=== PATIENT | male | born 1945 | race Caucasian/White ===

== ENCOUNTER 2016-08-23 07:16 | Inpatient (IN) | payer MEDICARE ==
[~2016-08-23] VITALS: Ht 165.1 cm; Wt 77.3 kg
[~2016-08-23 07:16] MED LIST: ASPIRIN81 MG PO; COZAAR50 MG PO; DIABETA5 MG PO; DITROPAN X10 MG/BOTT PO; FERROUS SULFAT325 MG PO; FLOMAX0.4 MG PO; FUROSEMIDE20 MG PO; FUROSEMIDE40 MG PO; HYDROCODONE-APA1 TAB PO; IPRAT-ALBUT 0.5-3 ML INH; ISOSORBIDE MONO30 M1 PO; LANTUS SOL100 UNIT/1 SQ; LEVAQUIN500 MG PO; LIPITOR10 MG PO; LIPITOR80 MG PO; LISINOPRIL10 MG PO; LOPRESSOR25 MG; METROLOTION59 ML TP; NIACIN250 M1 PO; NORVASC10 MG PO; OMEPRAZOLE20 M1 PO; OXYBUTYNIN CHLOR5 MG; PLAVIX75 MG PO; POTASSIUM; PREDNISONE20 MG PO; PRILOSEC20 MG PO; PROPECIA1 MG PO; PROSCAR5 MG PO; REFRESH TEARS15 ML EACH EYE; STOOL SOFTENER240 MG PO; TOPROL XL200 MG PO; TRAZODONE HCL50 MG PO; VITAMIN B-1100 M1 PO; VITAMIN B-121000 MCG PO; VITAMIN D2000 UNIT PO; ZESTRIL40 MG PO; ZOCOR40 MG PO; ZOLOFT50 MG PO
[2016-08-23 08:18] LABS: BASOPHILS 0.3 % (0.0-2.0); HEMATOCRIT 32.4 % (42.0-54.0); HEMOGLOBIN 11.1 g/dL (13.5-17.5); LYMPHOCYTES 13.6 % (15-50); MCH 31.4 pg (26.0-34.0); MCHC 34.3 g/dL (31.0-37.0); MCV 91.8 fL (80.0-100.0); MEAN PLATELET VOLUME 9.4 fL (7.4-10.4); MONOCYTES 9.9 % (2-11); NEUTROPHILS 72.2 % (40-80); PLATELET COUNT 127 10x3/uL (130-400); RBC 3.53 10x6/uL (4.20-6.10); RDW 13.4 % (11.5-14.5)
[2016-08-23 08:35] LABS: ALBUMIN 3.4 g/dL (3.4-5.0); ANION GAP 21.9 mmol/L (8-16); BILIRUBIN - TOTAL 0.41 mg/dL (0.2-1.3); CALCIUM 7.7 mg/dL (8.5-10.1); CARBON DIOXIDE 23.1 mmol/L (21.0-32.0); CREATININE - SERUM 6.7 mg/dL (0.6-1.3); PROTEIN - SERUM 6.8 g/dL (6.4-8.2)
[2016-08-23 09:04] LABS: APTT 26.7 SECONDS (22.8-39.4); INR 1.01 (0.85-1.17); PROTIME 13.2 SECONDS (11.6-15.0)
--- NOTE | 2016-08-23 14:00 | NUR ---
RECEIVED PAITIENT TO ROOM 2136 VIA WHEELCHAIR FROM ED AT THIS TIME. ALERT/ORIENTED BUT DOES REPEAT HIMSELF. 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 22 GAUGE IV TO RIGHT HAND. RIGHT CHEST HEMESPLIT. ABLE TO TRANSFER SELF WITH STAND BY ASSIST. CALL LIGHT PLACED WIHTIN REACH. DENIES NEEDS. NO DISTRESS.
[2016-08-23] MEDS ORDERED: NORVASC10 MG PO (14:31)
[2016-08-23] MEDS ORDERED: VITAMIN D2000 UNIT PO (14:34)
[2016-08-23] MEDS ORDERED: VITAMIN B-121000 MCG PO (14:34)
[2016-08-23] MEDS ORDERED: LASIX40 MG PO (14:37)
[2016-08-23] MEDS ORDERED: ZESTRIL40 MG PO (14:38)
[2016-08-23] MEDS ORDERED: OMEPRAZOLE20 M1 PO (14:40)
[2016-08-23] MEDS ORDERED: VITAMIN B-1100 M1 PO (14:43)
[2016-08-23] MEDS ORDERED: DITROPAN X10 MG/BOTT PO (14:43)
--- NOTE | 2016-08-23 15:25 | NUR ---
Patient Name: MARC CHADWICK Admission Status: ER Accout number: [id number] Admission Date: 08-23-2016 : 1945 Admission Diagnosis: LUE Paresis, Hyperglycemia. Attending: VITO Current LOS: 1 Anticipated DC Date: 08-26-2016 Planned Disposition: Home Primary Insurance: MEDICARE A & B Discharge Planning Comments: Cm met with patient to complete initial discharge planning assessment. Patient gave consent to complete assessment. Patient reports he lives home alone. He goes to dialysis every -- @ [facility]. He is not able to drive and went from taking a taxi back and forth to now using the bus. He reports he had a CVA last summer and now he is not able to read so they took his driving license from him at that time. His goal for dc today is to return home alone. Patient may benefit from Home Health at discharge. CM will continue to follow and assist with dc plan/needs. Clean Room Technician: Codie Langford RN, [facility] [phone] Is the patient Alert and Oriented? Yes * PCP Dr. Marie @ [facility]. (patient requested to stay at [facility] for treatment) * Pharmacy [facility] * Preadmission Environment Home Alone * ADLs Independent * Equipment Cane Glucometer Rolling Walker * List name and contact numbers for known caregivers / representatives who currently or will assist patient after discharge: Shaun Garcia - friend- Ever Chadwick - brother - [phone] * Community resources currently utilized Private Duty Care * Please name any agencies selected above. Private duty cg on Thursday/. Helps with housework and whatever he needs. [facility] provides all diabetes supplies. * Additional services required to return to the preadmission environment? Yes * Can the patient safely return to the preadmission environment? No * Has this patient been hospitalized within the prior 30 days at any hospital? No
[2016-08-23 15:31] VITALS: BP 146/63; BMI 28.4
[2016-08-23 16:19] VITALS: BP 158/72
--- NOTE | 2016-08-23 16:40 | NUR ---
FSBS 129. NO INSULIN COVERAGE REQUIRED PER [employer]ING [employer].
--- NOTE | 2016-08-23 18:39 | NUR ---
CM was notified that patient is a [facility] client and does not [facility] to [facility] to the [facility]. CM notified Chas with the [facility] of same, provided required information, physician, unit phone/fax number. Received Consent for Transfer, patient signed and CM faxed back to #[phone]. Original on chart. Kajal Heredia RN, CM
--- NOTE | 2016-08-23 19:03 | NUR ---
SITTING UP IN BED, AAOX3, SKIN WARM AND DRY, RESP UNLABORED, IV PATENT TO RIGHT HAND, NOTICEABLE WEAKNESS TO LEFT HAND, DENIES NEEDS AT THIS TIME
[2016-08-23 20:59] VITALS: BP 110/86
--- NOTE | 2016-08-23 23:26 | NUR ---
JACKSPOOLER AT BEDSIDE FOR VS. NEEDS ADDRESSED, CALL LIGHT IN REACH. WILL CONT TO MONITOR.
[2016-08-24 00:12] VITALS: BP 110/80
[2016-08-24 04:00] VITALS: BP 109/79
[2016-08-24 06:06] LABS: BASOPHILS 0.2 % (0.0-2.0); EOSINOPHILS 4.4 % (0-7); HEMOGLOBIN 11.7 g/dL (13.5-17.5); IMMATURE GRANULOCYTES 0.2 % (0-5); LYMPHOCYTES 19.5 % (15-50); MCH 30.5 pg (26.0-34.0); MCHC 33.4 g/dL (31.0-37.0); MCV 91.1 fL (80.0-100.0); MEAN PLATELET VOLUME 9.8 fL (7.4-10.4); MONOCYTES 7.6 % (2-11); NEUTROPHILS 68.1 % (40-80); PLATELET COUNT 151 10x3/uL (130-400); RBC 3.84 10x6/uL (4.20-6.10); RDW 13.1 % (11.5-14.5); WBC 6.3 10x3/uL (4.8-10.8)
[2016-08-24 06:28] LABS: ANION GAP 21.5 mmol/L (8-16); CALCIUM 7.8 mg/dL (8.5-10.1); CARBON DIOXIDE 23.3 mmol/L (21.0-32.0); CREATININE - SERUM 8.2 mg/dL (0.6-1.3); POTASSIUM - SERUM 3.8 mmol/L (3.5-5.1)
--- NOTE | 2016-08-24 07:54 | NUR ---
PT AOX4 HARD OF HEARING RESP EVEN AND NONLABORED PT DENIES NEEDS AT THIS TIME IV TO RIGHT HAND PATENT AND INTACT BED AT LOWEST SETTING AND CALL LIGHT WITHIN REACH WILL CONTINUE TO MONITOR
[2016-08-24 08:40] VITALS: BP 151/85
[2016-08-24 13:55] VITALS: BP 175/88
[2016-08-24 15:58] VITALS: BP 156/80
--- NOTE | 2016-08-24 19:49 | NUR ---
AMBULATORY IN HALLWAY. SR PER TELEMETRY. NONLABORED RESPIRATIONS ON ROOM AIR. PIV'S X 2, RIGHT HAND AND LFA. RIGHT CHEST WALL HEMOSPLIT. SEE COMPLETED SHIFT ASSESSMENT. CPOC.
[2016-08-24 20:15] VITALS: BP 176/85
[2016-08-25 02:31] VITALS: BP 145/65
[2016-08-25 04:38] LABS: BASOPHILS 0.4 % (0.0-2.0); EOSINOPHILS 4.1 % (0-7); HEMATOCRIT 31.9 % (42.0-54.0); HEMOGLOBIN 10.6 g/dL (13.5-17.5); IMMATURE GRANULOCYTES 0.2 % (0-5); LYMPHOCYTES 16.4 % (15-50); MCH 30.5 pg (26.0-34.0); MCHC 33.2 g/dL (31.0-37.0); MCV 91.9 fL (80.0-100.0); MEAN PLATELET VOLUME 9.6 fL (7.4-10.4); NEUTROPHILS 70.9 % (40-80); PLATELET COUNT 146 10x3/uL (130-400); RBC 3.47 10x6/uL (4.20-6.10); RDW 13.3 % (11.5-14.5); WBC 4.9 10x3/uL (4.8-10.8)
[2016-08-25 04:45] VITALS: BP 181/105
[2016-08-25 05:02] LABS: CALCIUM 7.2 mg/dL (8.5-10.1); CARBON DIOXIDE 23.1 mmol/L (21.0-32.0); CREATININE - SERUM 8.8 mg/dL (0.6-1.3); POTASSIUM - SERUM 4.1 mmol/L (3.5-5.1)
[2016-08-25 07:58] VITALS: BP 158/69
--- NOTE | 2016-08-25 13:03 | NUR ---
RETURN TO ROOM FROM DIALYSIS. PATIENT ASKED TO BE YOUTHANIZED. INFORM THAT PROCEDURE NOT DONE IN [place]. PATIENT REQUEST, "TELL THE DOCTOR TO JUST LET ME ." NOTIFY LE, RENAL DESOLDERER. CONSULT FOR INCREASED DEPRESSION. ZOLOFT 25mg INCREASE TO 50mg DAILY PER ORDER. CONTINUE PLAN OF CARE. BED LOCKED AND LOW. PATIENT DENIES BEING SUICIDAL. CALL LIGHT IN REACH. TWO SIDERAILS UP.
[2016-08-25 14:51] VITALS: Ht 165.1 cm; Wt 77.3 kg
[2016-08-25 16:40] VITALS: BP 153/78
--- NOTE | 2016-08-25 17:31 | NUR ---
ALERT AND ORIENTED X4. RESTING IN BED. PATIENT STATES, "THANK YOU FOR THAT XANAX, IT REALLY DID HELP I THINK." PAGE LE FOR SLEEP AIDE MEDICINE. DENIES FEELING SUICIDAL. CONTINUE PLAN OF CARE. ENCOURAGE TO CALL FOR HELP WHEN OOB DUE TO NEW MEDICATION. SINUS LAURI 56bpm ON TELEMETRY. CONTINUE PLAN OF CARE AND SAFETY PRECAUTIONS.
[2016-08-25 21:02] VITALS: BP 122/57
[2016-08-26 00:14] VITALS: BP 129/63
--- NOTE | 2016-08-26 04:17 | NUR ---
PT AWAKE, ALERT, ORIENTED, WALKING AROUND THE UNIT PERIODICALLY. DENIES ANY ACUTE NEEDS. PT STATED EARLIER IN THIS SHIFT THAT HE NO LONGER WANTS TO DO DIALYSIS, HE CANNOT TOLERATE SITTING THERE FOR HOURS. PT STATES THE PRN XANAX DOES NOT HELP AT ALL. CONTINUE TO MONITOR CLOSELY.
[2016-08-26 05:11] VITALS: BP 143/72
[2016-08-26 05:14] LABS: BASOPHILS 0.3 % (0.0-2.0); EOSINOPHILS 4.1 % (0-7); HEMATOCRIT 31.5 % (42.0-54.0); HEMOGLOBIN 10.6 g/dL (13.5-17.5); IMMATURE GRANULOCYTES 0.2 % (0-5); LYMPHOCYTES 20.9 % (15-50); MCH 30.9 pg (26.0-34.0); MCHC 33.7 g/dL (31.0-37.0); MCV 91.8 fL (80.0-100.0); MEAN PLATELET VOLUME 9.8 fL (7.4-10.4); MONOCYTES 10.5 % (2-11); PLATELET COUNT 133 10x3/uL (130-400); RBC 3.43 10x6/uL (4.20-6.10); RDW 12.9 % (11.5-14.5)
[2016-08-26 05:29] LABS: WBC 6.4 10x3/uL (4.8-10.8)
[2016-08-26 05:50] LABS: ANION GAP 20.5 mmol/L (8-16); CALCIUM 7.6 mg/dL (8.5-10.1); CARBON DIOXIDE 23.3 mmol/L (21.0-32.0); CREATININE - SERUM 7.2 mg/dL (0.6-1.3); POTASSIUM - SERUM 3.8 mmol/L (3.5-5.1)
--- NOTE | 2016-08-26 07:30 | NUR ---
PT IS RESTING IN BED WITH EYES CLOSED. AWOKE TO VERBAL STIMULI. ALERT AND ORIENTED X 3. DENIES ANY DISCOMFORT AT THIS TIME. PT IS SOMEWHAT NULATO. RIGHT CHEST KP-SPLIT CATH. NOTED. LEFT ARM IS RESERVED. SR'S ARE UP X 2 IN BED. CALL LIGHT AND BEDSIDE TABLE ARE WITHIN EASY REACH.
[2016-08-26 07:56] VITALS: BP 122/53
--- NOTE | 2016-08-26 09:59 | NUR ---
RESTS WITH EYES CLOSED. CALL LIGHT IN REACH. WILL CONT. PLAN OF CARE.
--- NOTE | 2016-08-26 10:00 | NUR ---
PT IS RESTING IN BED WITH EYES OPEN. NO NEEDS VOICED.
[2016-08-26 12:03] VITALS: BP 116/63
--- NOTE | 2016-08-26 13:15 | NUR ---
PT IS RESTING IN BED WITH EYES CLOSED.
[2016-08-26] MEDS ORDERED: ELIQUIS5 MG PO (14:31)
[2016-08-26] MEDS ORDERED: PLAVIX75 MG PO (14:31)
[2016-08-26] MEDS ORDERED: ZOLOFT50 MG PO (14:32)
--- NOTE | 2016-08-26 15:24 | NUR ---
Patient Name: MARC CHADWICK Encounter No: [id number] : 1945 Primary Insurance: MEDICARE A & B Anticipated DC Date: 08-26-2016 Planned Disposition: Home DCP follow-up note: CM MET WITH PT IN ROOM TO DISCUSS DISCHARGE NEEDS AND PLANNING. CM DISCUSSED AVAILABILITY OF HOME HEALTH, REHAB SERVICES AND MEDICAL EQUIPMENT. PT DENIES DISCHARGE NEEDS AND STATES HE HAS MEDICAID CAREGIVERS NOW AND TAKES THE [employer] TRANSIT BUS TO AND FROM DIALYSIS. PT REPORTS HE WILL CALL A TAXI FOR HIMSELF TO TRANSPORT HOME AT DISCHARGE TODAY. IMPORTANT MESSAGE FROM MEDICARE PROVIDED AND EXPLAINED. PT ASKED TO SPEAK TO CM CM LEFT THE ROOM. PT REPORTS HE IS THINKING OF STOPPING DIALYSIS AND ASKED WHAT WOULD HAPPEN IF HE DID. CM EXPLAINED THAT PT WOULD . PT ASKED HOW LONG WOULD HE HAVE. CM EXPLAINED THERE WAS NO WAY TO KNOW AND HE NEEDED TO DISCUSS THIS WITH HIS DIALYSIS DOCTOR AT THE DIALYSIS CLINIC. PT REPORTS HE HAS MADE ARRANGEMENTS FOR THE CARE OF HIS DOGS AND IS THINKING OF STOPPING DIALYSIS BECAUSE HE IS NOT GETTING ANY BETTER AND DOES NOT WANT TO SUFFER ANY LONGER. PT WILL DISCUSS THIS WITH HIS DIALYSIS DOCTOR TOMORROW. CM PROVIDED PT WITH HOSPICE AGENCY INFORMATION SERVING [facility] AND ADVISED PT TO CALL ONE OR ALL OF THEM AND DISCUSS WHAT HOSPICE CAN DO FOR HIM. PT THANKED RHIANNON FOR THE HELP AND WILL CONSIDER HOSPICE AND TALK TO HIS DOCTOR AT THE DIALYSIS CLINIC TOMORROW. RHIANNON NOTIFIED DR. LOPEZ. Elie Broderick, CASE MANAGEMENT
--- NOTE | 2016-08-26 16:13 | NUR ---
PT DISCHARGED TO HOME AT THIS TIME. DEPARTED UNIT VIA WC PROPELLED BY STAFF WITH ALL BELONGINGS. DEPARTED GROUNDS VIA YELLOW CAB.
--- NOTE | 2016-08-27 17:40 | CN ---
PATIENT NAME:MARC CHADWICK MEDICAL RECORD: [id number] : [birth year] LOCATION:D. D.2136 ADMIT DATE: 08/23/16 ACCOUNT: [id number] CONSULTING PHYSICIAN: ALFRED KAUR MD REFERRING PHYSICIAN: FÁTIMA LEMUS MD DATE OF CONSULTATION: 08/26/2016 Psychiatric Consultation IDENTIFYING DATA: The patient is 71 years old, he is admitted to the hospital on a voluntary basis. CHIEF COMPLAINT: Depression. HISTORY OF PRESENT ILLNESS: The patient is a very nice and cooperative man who unfortunately has a very bad set of circumstances. His overall health has deteriorated dramatically in the past few years. He has a long history of diabetes and hypertension and now he has end-stage renal disease along with 2 strokes, one very recently. He has no real support system. He has been 4 times and 4 times. He has a woman that he lived with for 22 years that he never . He has no children. No close family. He has a few friends. He endorses numerous neurovegetative depressive symptoms. He says he cannot tolerate dialysis that he feels terrible after it is done and he becomes very nervous and anxious when he is attached to the dialysis machine. He says that he thinks he does not want to have any more dialysis and he understands what this means. He is not able to drive anymore. He is living on a very modest income. He is $600 overdrawn at the bank and says he has a $200,000 hospital bill sitting on his refrigerator with a magnet. When asked about suicide, he says that he is not a yazidism person, although he used to be devout Nondenominational, but he still believes that killing himself would be very grave and mortal sin. He also very astutely says that killing himself would cause pain to the few friends and distant family members that he has who would have a lot of guilt about not trying to intervene. He tells me pretty convincingly that he is not going to kill himself. He also says that if something happened to him randomly that he would be perfectly fine with that. He says he does not want to take antidepressant medications, although he already is and has been. MENTAL STATUS EXAMINATION: The patient is awake, alert and oriented to person, place, time and situation. His mood is depressed. His affect is appropriate. Thought processes are goal directed. Memory, concentration and abstraction abilities are intact. He denies intent to harm himself or others as well as psychotic symptoms. ASSETS: An ability to make his needs known. LIABILITIES: Limited insight and resources. DIAGNOSTIC IMPRESSION: Major depression, severe, single episode. PLAN: At this time, I do not think the patient is an acute risk to himself or others that is to say I do think he is going to openly attempt to kill himself. He is considering hospice placement and just simply not going back for any more dialysis. Given his circumstances that may or may not be the best choice, but he does not have any evidence that would say he is not competent to make that choice. I would recommend older adult social work specialist follow up with him along with a CONSULT REPORT [id number] MARC CHADWICK S hospice consult. He does not want any kind of outpatient psychiatric care. It would be appropriate to continue the Zoloft that he is taking. Perhaps, he could tolerate dialysis better if he was given a benzodiazepine prior to dialysis. On the whole, I think his prognosis is guarded and hopefully he will improve with antidepressant medication. TRANSINT:[id number] Voice Confirmation ID: [id number] DOCUMENT ID: [id number] ALFRED KAUR MD at 1740 CC: [id number] DICTATION DATE: 08/26/162130 VALVE GRINDER: 08/27/16 0046 DIS IN 08/26/16 [facility] [address] [place] [address]
--- NOTE | 2016-08-29 14:54 | EC ---
PATIENT:MARC CHADWICK DATE OF SERVICE: 08/23/16 SEX: M MEDICAL RECORD: [id number] DATE OF : [birth year] LOCATION:D. D.213 AGE OF PATIENT: 71 ADMISSION DATE: 08/23/16 REFERRING PHYSICIAN: INTERPRETING PHYSICIAN: GENE BOYCE M.D. ECHOCARDIOGRAM REPORT ECHO CHARGES 4 ECHO COMPLETE CLINICAL DIAGNOSIS: CVA HX CAD/STENTS/PACER ECHOCARDIOGRAPHIC MEASUREMENTS (adult normal given) AC root (d.<3.7cm) 3.4 LV Septum d (<1.2 cm> 1.4 Valve Excursion 2.1 LV Septum (systole) 2.2 Left Atria (s.<4.0cm> 3.4 LVPW d(<1.2cm) 1.6 RV (d.<2.3cm) 3.7 LVPW (sytole) 2.0 LV diastole(<5.6CM) 5.8 MV E-F(>70mm/sec) LV systole 4.4 LVOT Diameter 1.7 MV exc.(>10mm) 0.9 Est.ejection fraction (50-75%) Pericardial Effusion N DOPPLER: LVIT A 107 E 60.0 LA RVSP 18 LVOT 87 AOP1/2T Asc. Ao 151 RVOT 91 RA PA 105 AV Gradient Peak 9.10 AV Mean 5.0 AV Area 1.5 MV Gradient Peak 6.63 MV Mean 1.8 MV Area COMMENTS: Senior Technical Business Analyst: Azar SAM Archivist Political History:2 Dr. Boyce TAPE# PACS DATE OF SERVICE: 08/24/2016 Echocardiogram Report REFERRING PHYSICIAN: Colten Moctezuma MD. INDICATION: CVA. DESCRIPTION: Left ventricle is mildly dilated. There is mild LV dysfunction noted. His ejection fraction is in the order of 45% to 50%. Mitral valve is ECHOCARDIOGRAM REPORT [id number] MARC CHADWICK structurally normal. There is mild regurgitation seen. Left atrium is normal in size. The aortic valve is trileaflet. There is no stenosis or regurgitation seen. Right ventricle is mildly dilated. Tricuspid valve is structurally normal. There is trivial regurgitation noted. Right atrium is normal size. There is no pericardial effusion seen. IMPRESSION: 1. Mild left ventricular dysfunction with ejection fraction of 45% to 50%. 2. No evidence of any mass or thrombus in the left ventricle apex. 3. Mild mitral regurgitation. 4. Trivial tricuspid regurgitation. 5. No evidence of atrial septal defect, ventricular septal defect or patent foramen ovale. TRANSINT:[id number] Voice Confirmation ID: [id number] DOCUMENT ID: [id number] GENE BOYCE M.D. at 1454 CC: [id number] DICTATION DATE: 08/24/16 1345 LEARNING DESIGN SPECIALIST: 08/25/16 0019 DIS IN 08/26/16 [id number] [place] [address]
== END 2016-08-26 16:14 | disposition home or self-care (01) | DRG 64 ==
LOC: D.ER 07:16 → D.M2 12:25
PROVIDERS: Emergency Medicine; ADMIT Internal Medicine Nephrology
PROC: 5A1D60Z (ICD-10-PCS; principal; 2016-08-25)
DX: I63.511 Cerebral infarction due to unspecified occlusion or stenosis of right middle cerebral artery (principal); N18.6 End stage renal disease; I12.0 Hypertensive chronic kidney disease with stage 5 chronic kidney disease or end stage renal disease; E11.22 Type 2 diabetes mellitus with diabetic chronic kidney disease; Z99.2 Dependence on renal dialysis; Z79.4 Long term (current) use of insulin; I65.21 Occlusion and stenosis of right carotid artery; I25.10 Atherosclerotic heart disease of native coronary artery without angina pectoris; E87.6 Hypokalemia; D63.1 Anemia in chronic kidney disease; R40.2133 Coma scale, eyes open, to sound, at hospital admission; R40.2363 Coma scale, best motor response, obeys commands, at hospital admission; R40.2253 Coma scale, best verbal response, oriented, at hospital admission; I25.2 Old myocardial infarction; Z95.1 Presence of aortocoronary bypass graft; Z95.5 Presence of coronary angioplasty implant and graft; Z86.73 Personal history of transient ischemic attack (TIA), and cerebral infarction without residual deficits

== ENCOUNTER 2016-09-20 19:49 | Inpatient (IN) | payer MEDICARE ==
[~2016-09-20 19:49] MED LIST changes: +ELIQUIS5 MG PO; +LASIX40 MG PO
[2016-09-20 20:21] LABS: BASOPHILS 0.2 % (0-2); EOSINOPHILS 3.1 % (0-7); HEMATOCRIT 30.7 % (42.0-54.0); HEMOGLOBIN 10.3 g/dL (13.5-17.5); IMMATURE GRANULOCYTES 0.3 % (0-5); LYMPHOCYTES 14.9 % (15-50); MCH 31.4 pg (26.0-34.0); MCHC 33.6 g/dL (31.0-37.0); MCV 93.6 fL (80.0-100.0); MONOCYTES 10.2 % (2-11); NEUTROPHILS 71.3 % (40-80); PLATELET COUNT 159 10x3/uL (130-400); RBC 3.28 10x6/uL (4.20-6.10); RDW 14.2 % (11.5-14.5); WBC 5.8 10x3/uL (4.8-10.8)
[2016-09-20 20:34] LABS: ALBUMIN 3.1 g/dL (3.4-5.0); ANION GAP 17.4 mmol/L (8-16); BILIRUBIN - TOTAL 0.41 mg/dL (0.2-1.3); CALCIUM 8.7 mg/dL (8.5-10.1); CARBON DIOXIDE 27.4 mmol/L (21.0-32.0); CREATININE - SERUM 6.7 mg/dL (0.6-1.3); POTASSIUM - SERUM 3.8 mmol/L (3.5-5.1); PROTEIN - SERUM 6.6 g/dL (6.4-8.2)
[2016-09-20 21:13] LABS: TROPONIN-I 7.406 ng/mL (0.000-0.060)
[2016-09-21] MEDS ORDERED: BAYER CHEWABLE81 MG PO (02:03)
[2016-09-22 04:59] LABS: BASOPHILS 0.2 % (0-2); EOSINOPHILS 3.6 % (0-7); HEMATOCRIT 28.7 % (42.0-54.0); HEMOGLOBIN 9.7 g/dL (13.5-17.5); IMMATURE GRANULOCYTES 0.3 % (0-5); LYMPHOCYTES 14.3 % (15-50); MCH 31.3 pg (26.0-34.0); MCHC 33.8 g/dL (31.0-37.0); MCV 92.6 fL (80.0-100.0); MEAN PLATELET VOLUME 9.2 fL (7.4-10.4); MONOCYTES 8.1 % (2-11); NEUTROPHILS 73.5 % (40-80); PLATELET COUNT 168 10x3/uL (130-400); RDW 14.1 % (11.5-14.5); WBC 6.2 10x3/uL (4.8-10.8)
[2016-09-22 05:13] LABS: ANION GAP 17.9 mmol/L (8-16); CALCIUM 8.6 mg/dL (8.5-10.1); CARBON DIOXIDE 23.8 mmol/L (21.0-32.0); CREATININE - SERUM 7.9 mg/dL (0.6-1.3); MAGNESIUM - SERUM 2.2 mg/dL (1.8-2.4); PHOSPHOROUS 7.5 mg/dL (2.5-4.9); POTASSIUM - SERUM 3.7 mmol/L (3.5-5.1)
[2016-09-23 05:32] LABS: BASOPHILS 0 % (0-2); EOSINOPHILS 4.7 % (0-7); HEMATOCRIT 29.1 % (42.0-54.0); HEMOGLOBIN 9.6 g/dL (13.5-17.5); IMMATURE GRANULOCYTES 0.4 % (0-5); LYMPHOCYTES 15.4 % (15-50); MCH 30.8 pg (26.0-34.0); MCV 93.3 fL (80.0-100.0); MEAN PLATELET VOLUME 9.5 fL (7.4-10.4); MONOCYTES 7.1 % (2-11); NEUTROPHILS 72.4 % (40-80); PLATELET COUNT 178 10x3/uL (130-400); RBC 3.12 10x6/uL (4.20-6.10); RDW 14.2 % (11.5-14.5); WBC 5.1 10x3/uL (4.8-10.8)
[2016-09-23 06:11] LABS: ANION GAP 16.8 mmol/L (8-16); CALCIUM 8.5 mg/dL (8.5-10.1); CARBON DIOXIDE 22.9 mmol/L (21.0-32.0); CREATININE - SERUM 8.1 mg/dL (0.6-1.3); POTASSIUM - SERUM 3.7 mmol/L (3.5-5.1)
[2016-09-24 06:11] LABS: BASOPHILS 0.2 % (0-2); EOSINOPHILS 3.2 % (0-7); HEMATOCRIT 27.5 % (42.0-54.0); IMMATURE GRANULOCYTES 0.2 % (0-5); LYMPHOCYTES 12.1 % (15-50); MCH 30.7 pg (26.0-34.0); MCHC 32.7 g/dL (31.0-37.0); MCV 93.9 fL (80.0-100.0); MEAN PLATELET VOLUME 9.4 fL (7.4-10.4); MONOCYTES 10.8 % (2-11); NEUTROPHILS 73.5 % (40-80); RBC 2.93 10x6/uL (4.20-6.10); RDW 14.3 % (11.5-14.5); WBC 5.6 10x3/uL (4.8-10.8)
[2016-09-24 06:12] LABS: PLATELET COUNT 111 10x3/uL (130-400)
[2016-09-24 06:29] LABS: ANION GAP 15.8 mmol/L (8-16); CALCIUM 8.3 mg/dL (8.5-10.1); CARBON DIOXIDE 25.9 mmol/L (21.0-32.0); CREATININE - SERUM 7.1 mg/dL (0.6-1.3); POTASSIUM - SERUM 3.7 mmol/L (3.5-5.1)
[2016-09-25 06:57] LABS: BASOPHILS 0.2 % (0-2); EOSINOPHILS 3.8 % (0-7); HEMATOCRIT 26.7 % (42.0-54.0); HEMOGLOBIN 8.6 g/dL (13.5-17.5); IMMATURE GRANULOCYTES 0.4 % (0-5); LYMPHOCYTES 22.5 % (15-50); MCH 30.1 pg (26.0-34.0); MCHC 32.2 g/dL (31.0-37.0); MCV 93.4 fL (80.0-100.0); MEAN PLATELET VOLUME 9.6 fL (7.4-10.4); MONOCYTES 11.8 % (2-11); NEUTROPHILS 61.3 % (40-80); PLATELET COUNT 105 10x3/uL (130-400); RBC 2.86 10x6/uL (4.20-6.10); WBC 5.3 10x3/uL (4.8-10.8)
[2016-09-25 06:59] LABS: ANION GAP 13.8 mmol/L (8-16); CALCIUM 8.6 mg/dL (8.5-10.1); CARBON DIOXIDE 28.1 mmol/L (21.0-32.0); CREATININE - SERUM 6.9 mg/dL (0.6-1.3); POTASSIUM - SERUM 3.9 mmol/L (3.5-5.1)
[2016-09-26 05:55] LABS: BASOPHILS 0.2 % (0-2); EOSINOPHILS 4.2 % (0-7); HEMATOCRIT 27.9 % (42.0-54.0); HEMOGLOBIN 9.2 g/dL (13.5-17.5); IMMATURE GRANULOCYTES 0.2 % (0-5); LYMPHOCYTES 19.5 % (15-50); MCH 31.3 pg (26.0-34.0); MCV 94.9 fL (80.0-100.0); MEAN PLATELET VOLUME 9.5 fL (7.4-10.4); MONOCYTES 8.5 % (2-11); NEUTROPHILS 67.4 % (40-80); PLATELET COUNT 122 10x3/uL (130-400); RBC 2.94 10x6/uL (4.20-6.10); WBC 5.5 10x3/uL (4.8-10.8)
[2016-09-26 06:45] LABS: ANION GAP 14.5 mmol/L (8-16); CALCIUM 8.9 mg/dL (8.5-10.1); CARBON DIOXIDE 31.5 mmol/L (21.0-32.0)
[2016-09-26 06:46] LABS: CREATININE - SERUM 9.1 mg/dL (0.6-1.3)
== END 2016-09-26 15:56 | DRG 246 ==
LOC: D.ER 19:49 → D.M2 23:21
PROVIDERS: Family Medicine; Internal Medicine Nephrology; ADMIT Internal Medicine Nephrology
PROC: 027034Z Dilation of Coronary Artery, One Artery with Drug-eluting Intraluminal Device, Percutaneous Approach (ICD-10-PCS; principal; 2016-09-22)
PROC: 4A023N7 Measurement of Cardiac Sampling and Pressure, Left Heart, Percutaneous Approach (ICD-10-PCS; 2016-09-22)
PROC: B2111ZZ Fluoroscopy of Multiple Coronary Arteries using Low Osmolar Contrast (ICD-10-PCS; 2016-09-22)
PROC: B2151ZZ Fluoroscopy of Left Heart using Low Osmolar Contrast (ICD-10-PCS; 2016-09-22)
PROC: 5A1D60Z (ICD-10-PCS; 2016-09-22)
DX: I25.119 Atherosclerotic heart disease of native coronary artery with unspecified angina pectoris (principal); N18.6 End stage renal disease; T82.855A Stenosis of coronary artery stent, initial encounter; I12.0 Hypertensive chronic kidney disease with stage 5 chronic kidney disease or end stage renal disease; Y83.8 Other surgical procedures as the cause of abnormal reaction of the patient, or of later complication, without mention of misadventure at the time of the procedure; D63.1 Anemia in chronic kidney disease; E11.22 Type 2 diabetes mellitus with diabetic chronic kidney disease; Z99.2 Dependence on renal dialysis; Z95.0 Presence of cardiac pacemaker; R94.31 Abnormal electrocardiogram [ECG] [EKG]; I65.21 Occlusion and stenosis of right carotid artery; Z87.891 Personal history of nicotine dependence

== ENCOUNTER 2016-09-26 16:22 | Inpatient (IN) | payer MEDICARE ==
[~2016-09-26] VITALS: Ht 165.1 cm; Wt 78.1 kg
[~2016-09-26 16:22] MED LIST changes: +BAYER CHEWABLE81 MG PO
[2016-09-26 16:46] VITALS: BP 118/55; BMI 26.2
--- NOTE | 2016-09-26 18:48 | NUR ---
ATE SUPPER IN BED. LEFT SIDE WEAKNESS NOTED. ALERT AND ORIENTED X3. POOR SHORT TERM MEMORY NOTED. CANT REMEMBER THE DATE NO MATTER HOW MANY TIMES YOU TELL HIM. DENIES NEEDING OXYGEN. CONT OF B/B.
[2016-09-26 18:52] VITALS: BP 122/70
--- NOTE | 2016-09-26 19:30 | NUR ---
PT REQUESTING 2 ORANGE SHERBERTS. DISCUSSED IMPACT OF SHERBERT ON BLOOD SUGAR LEVEL. PT NEEDS FURTHER EDUCATION ON DIABETIC DIET. PT WATCHING TV, RESPIRATIONS REGULAR AND UNLABORED.
--- NOTE | 2016-09-26 21:15 | NUR ---
PT INSISTANT ON ORANGE SHERBERT HIS DIABETIC SNACK. PT CONVERSED ABOUT DIALYSIS AND THE DIFFICULTY WITH FATIQUE FOLLOWING DIALYSIS. PT NEEDS MORE EDUCATION ON IMPACT OF DIABETES AND DIALYSIS.
--- NOTE | 2016-09-27 03:15 | NUR ---
PT RESTING QUIETLY, NO S/S OF ACUTE DISTRESS.
--- NOTE | 2016-09-27 05:35 | NUR ---
DCD PT SALINE LOCK, DATED 10/20/2016. PT TOLERATED TAPE REMOVAL FAIRLY WELL. OT IN WITH PATIENT.
[2016-09-27 07:00] VITALS: BP 117/58
--- NOTE | 2016-09-27 07:30 | NUR ---
PT IS RESTING IN BED WITH EYES OPEN. ALERT AND ORIENTED X 3. DENIES ACUTE DISCOMFORT AT THIS TIME. LEFT SIDE WEAKNESS NOTED. LEFT CHEST HEMISPLIT CATHETER NOTED. PT DENIES ANY NEED TO VOID AT THIS TIME. SR'S ARE UP X 3 IN BED. CALL LIGHT AND BEDSIDE TABLE ARE WITHIN EASYR EACH.
[2016-09-27 08:20] LABS: BASOPHILS 0.4 % (0-2); EOSINOPHILS 3.6 % (0-7); HEMATOCRIT 31.2 % (42.0-54.0); HEMOGLOBIN 10.4 g/dL (13.5-17.5); IMMATURE GRANULOCYTES 0.4 % (0-5); LYMPHOCYTES 15.7 % (15-50); MCH 31.2 pg (26.0-34.0); MCHC 33.3 g/dL (31.0-37.0); MCV 93.7 fL (80.0-100.0); MEAN PLATELET VOLUME 9.6 fL (7.4-10.4); MONOCYTES 8.5 % (2-11); NEUTROPHILS 71.4 % (40-80); PLATELET COUNT 136 10x3/uL (130-400); RBC 3.33 10x6/uL (4.20-6.10); WBC 5.3 10x3/uL (4.8-10.8)
[2016-09-27 08:34] LABS: ANION GAP 12.2 mmol/L (8-16); CALCIUM 9.1 mg/dL (8.5-10.1); CARBON DIOXIDE 30.6 mmol/L (21.0-32.0); POTASSIUM - SERUM 3.8 mmol/L (3.5-5.1)
[2016-09-27 08:37] LABS: CREATININE - SERUM 6.6 mg/dL (0.6-1.3)
--- NOTE | 2016-09-27 09:30 | NUR ---
PT IS PARTICIPATING IN THERAPY AT TIME.
[2016-09-27 11:02] VITALS: Ht 165.1 cm; Wt 78.1 kg
--- NOTE | 2016-09-27 12:43 | NUR ---
PT IS FEEDING SELF LUNCH SITTING ON THE SIDE OF HIS BED. NO DISTRESS NOTED.
--- NOTE | 2016-09-27 15:00 | NUR ---
PT IS RESTING IN BED WATCHING TV. DENIES ACUTE DISTRESS, BUT STATES HE FEELS BAD ALL OVER, AND DOES NOT THINK HIS HEART CATH WORKED RIGHT THIS TIME. STATES HE CAN TELL BY THE WAY HE IS BREATHING. NO SOB, OR OBVIOUS DISTRESS OBSERVED. VSS. PULSE OX IS 95% ON 2LPM O2 PER NC. WILL MONITOR PT CLOSELY.
--- NOTE | 2016-09-27 18:03 | NUR ---
PT RESTING IN BED WITH EYES OPEN. ASSISTED TO FILL OUT HIS MENU, HE CANNOT READ IT. PT DENIES ANY SOB OR OTHER PROBLEMS AT THIS TIME.
--- NOTE | 2016-09-27 18:26 | NUR ---
RESTING QUIETLY IN BED CALL LIGHT IN REACH
[2016-09-27 19:13] VITALS: BP 101/51
--- NOTE | 2016-09-27 20:12 | NUR ---
PT WATCHING TV, LYING IN BED, DENIES ANY NEEDS.
--- NOTE | 2016-09-28 04:06 | NUR ---
PT UP TO BATHROOM, PT NEEDED SAFETY REMINDERS TO USE W/C BREAKS. PT CONVERSIVE, AND STATES HE WANTS TO STAY AWAKE A LITTLE WHILE AND WATCH TV.
[2016-09-28 05:48] VITALS: BP 100/54
[2016-09-28 06:40] LABS: BASOPHILS 0.2 % (0-2); EOSINOPHILS 3.1 % (0-7); HEMATOCRIT 27.9 % (42.0-54.0); HEMOGLOBIN 9.4 g/dL (13.5-17.5); IMMATURE GRANULOCYTES 0.2 % (0-5); LYMPHOCYTES 20.5 % (15-50); MCH 31.3 pg (26.0-34.0); MCHC 33.7 g/dL (31.0-37.0); MEAN PLATELET VOLUME 9.2 fL (7.4-10.4); MONOCYTES 7.7 % (2-11); NEUTROPHILS 68.3 % (40-80); PLATELET COUNT 129 10x3/uL (130-400); RDW 13.8 % (11.5-14.5); WBC 4.8 10x3/uL (4.8-10.8)
[2016-09-28 07:16] LABS: ANION GAP 15.1 mmol/L (8-16); CALCIUM 8.4 mg/dL (8.5-10.1); CARBON DIOXIDE 27.6 mmol/L (21.0-32.0); PHOSPHOROUS 6.9 mg/dL (2.5-4.9); POTASSIUM - SERUM 3.7 mmol/L (3.5-5.1)
[2016-09-28 07:20] LABS: CREATININE - SERUM 8.5 mg/dL (0.6-1.3)
--- NOTE | 2016-09-28 07:30 | NUR ---
PT IS RESTING IN BED WITH EYES CLOSED. AWOKE EASILY TO VERBAL STIMULI. ALERT AND ORIENTED X 3. DENIES ACUTE DISCOMFORT AT THIS TIME. NO NEEDS VOICED. PT SITTING UP ON SIDE OF BED FOR BREAKFAST. FEEDING SELF WITHOUT DIFFICULTY. SR'S ARE UP X 3 IN BED. CALL LIGHT AND BEDSIDE TABLE ARE WITHIN EASY REACH.
--- NOTE | 2016-09-28 09:41 | NUR ---
PT IS RESTING IN BED WITH EYES CLOSED. NO DISTRESS NOTED.
[2016-09-28 12:00] VITALS: BP 101/59
--- NOTE | 2016-09-28 12:00 | NUR ---
PT IS FEEDING SELF LUNCH IN HIS ROOM. NO NEEDS VOICED.
--- NOTE | 2016-09-28 14:47 | NUR ---
PT ASSISTED TO THE BATHROOM WITH MIN ASSIST FOR TRANSFERS. SBA FOR TOILETING.
--- NOTE | 2016-09-28 17:19 | NUR ---
PT RESTING IN HIS ROOM. NO COMPLAINTS VOICED. NO DISTRESS NOTED.
[2016-09-28 18:29] VITALS: BP 124/62
--- NOTE | 2016-09-28 19:27 | NUR ---
LYING IN BED WATCHING TV, DENIES PAIN, DENIES ANY NEEDS, RESPIRATIONS REGULAR AND UNLABORED.
--- NOTE | 2016-09-29 00:10 | NUR ---
ASSISTED PT TO BATHROOM, VOIDED PER PATIENT. PT STATES HE JUST DOESN'T FEEL WELL, DENIES PAIN, DENIES SOB WITH ACTIVITY.
[2016-09-29 00:17] VITALS: BP 122/60
[2016-09-29 06:39] VITALS: BP 132/78
[2016-09-29 06:44] LABS: BASOPHILS 0.2 % (0-2); EOSINOPHILS 3.6 % (0-7); HEMATOCRIT 28.5 % (42.0-54.0); HEMOGLOBIN 9.5 g/dL (13.5-17.5); IMMATURE GRANULOCYTES 0.6 % (0-5); LYMPHOCYTES 21.2 % (15-50); MCH 31.1 pg (26.0-34.0); MCHC 33.3 g/dL (31.0-37.0); MCV 93.4 fL (80.0-100.0); MEAN PLATELET VOLUME 9.4 fL (7.4-10.4); MONOCYTES 8.7 % (2-11); NEUTROPHILS 65.7 % (40-80); RBC 3.05 10x6/uL (4.20-6.10); RDW 13.7 % (11.5-14.5); WBC 5.3 10x3/uL (4.8-10.8)
--- NOTE | 2016-09-29 06:56 | NUR ---
PT VERBALIZES CONCERN R/T DECREASED USE OF LEFT ARM AND WHY HE KEEPS DROPPING ITEMS. PT CONFUSED THAT HE HAS HAD A STROKE. PT STATES HE SLEPT SOME LAST NIGHT.
[2016-09-29 06:59] LABS: PLATELET COUNT 169 10x3/uL (130-400)
--- NOTE | 2016-09-29 07:00 | NUR ---
PT WAS RECEIVED IN BED AT THE BEGINNING OF THIS SHIFT. STABLE CONDITION OBSERVED. VITAL SIGNS; TEMP. 98.4, PULSE 77, RESP. 16, B/P 125/65, 02SAT. 97%. PT IS ALERT AND ORIENTED X 3. WILL BE MONITORING PT. AND ASSISTING PRN WITH ADL'S. NO DISCOMFORT OR DISTRESS SEEN.
[2016-09-29 07:18] LABS: ANION GAP 16.3 mmol/L (8-16); CALCIUM 8.9 mg/dL (8.5-10.1); CARBON DIOXIDE 27.9 mmol/L (21.0-32.0); CREATININE - SERUM 9.6 mg/dL (0.6-1.3); PHOSPHOROUS 7.2 mg/dL (2.5-4.9); POTASSIUM - SERUM 4.2 mmol/L (3.5-5.1)
[2016-09-29 09:57] VITALS: BP 125/65
--- NOTE | 2016-09-29 14:02 | NUR ---
PT WAS TAKEN TO DIALYSIS UNIT IN HIS BED A FEW HOURS AGO. STABLE CONDITION OBSERVED. WILL BE GOING TO GET HIM AND BRING HIM BACK TO REHAB UNIT WHEN HIS DIALYSIS IS FINISHED.
--- NOTE | 2016-09-29 15:17 | NUR ---
PATIENT ADMITTED TO REHAB FROM ACUTE FLOOR. HIS PCP IS DR. GISSEL KELLY FROM [facility]. HE HAS A MEDICAID AIDE ON . AND . TO ASSIT HIM AT HOME. HE HAS A ROLLING WALKER AND GLUCOMETER AT HOME. DIALYSIS DAYS ARE -- @ 7:00am AT [facility] [place]. DISCHARGE PLANS ARE FOR PATIENT TO RETURN HOME. WILL CONTINUE TO FOLLOW WITH PATIENT.
--- NOTE | 2016-09-29 16:18 | NUR ---
PT HAS RETURNED FROM DIALYSIS IN HIS BED. DIALYSIS WAS ABLE TO TAKE OFF 1.5 LITERS OF FLUID. PT. WAS STABLE UPON RETURN TO THIS UNIT. RESTING COMFORTABLY IN BED WITH HOB ELEVATED TO 35%. CALL LIGHT IS IN REACH. 02 PER NC GOING AT 2L/MIN.
--- NOTE | 2016-09-29 18:11 | NUR ---
PT IS RESTING COMFORTABLY ON RIGHT SIDE FLAT IN BED. CALL LIGHT IS IN REACH. NO SIGNS OF DISCOMFORT OR DISTRESS. HE FINISHED EATTING ALMOST ALL OF HIS SUPPER. CALL LIGHT IS IN REACH.
[2016-09-29 18:35] VITALS: BP 101/50
[2016-09-29 18:43] VITALS: BP 101/50
--- NOTE | 2016-09-29 19:25 | NUR ---
PT RECEIVED IN BED WITH EYES OPEN WATCHING TV. NO COMPLAINTS OF PAIN NOTED OR OTHER NEEDS MADE KNOWN. CALL LIGHT IN REACH. WILL CONTINUE TO OBSERVE.
--- NOTE | 2016-09-29 23:33 | NUR ---
PT IN BED WITH EYES OPEN WATCHING TV. SNACK GIVEN WITH MEDICATIONS. NO CONCERNS NOTED AT THIS TIME. CALL LIGHT IN REACH.
[2016-09-30 01:03] VITALS: BP 126/57
--- NOTE | 2016-09-30 02:37 | NUR ---
PT IN BED WITH EYES CLOSED AND CHEST RISING. NO SIGN/SYMPTOMS OF DISTRESS NOTED. CALL LIGHT IN REACH.
[2016-09-30 06:12] VITALS: BP 124/57
[2016-09-30 06:19] LABS: BASOPHILS 0.2 % (0-2); HEMATOCRIT 27.8 % (42.0-54.0); HEMOGLOBIN 9.2 g/dL (13.5-17.5); IMMATURE GRANULOCYTES 0.3 % (0-5); LYMPHOCYTES 17.6 % (15-50); MCH 31.1 pg (26.0-34.0); MCHC 33.1 g/dL (31.0-37.0); MCV 93.9 fL (80.0-100.0); MEAN PLATELET VOLUME 9.6 fL (7.4-10.4); MONOCYTES 9.3 % (2-11); NEUTROPHILS 69.6 % (40-80); PLATELET COUNT 159 10x3/uL (130-400); RBC 2.96 10x6/uL (4.20-6.10)
[2016-09-30 06:41] LABS: ANION GAP 13.4 mmol/L (8-16); CALCIUM 8.5 mg/dL (8.5-10.1); CARBON DIOXIDE 30.1 mmol/L (21.0-32.0)
[2016-09-30 06:42] LABS: CREATININE - SERUM 6.5 mg/dL (0.6-1.3); POTASSIUM - SERUM 3.5 mmol/L (3.5-5.1)
--- NOTE | 2016-09-30 08:00 | NUR ---
SHIFT ASSMT COMPLETED.DENIES NEEDS.HEMOSPLIT CATH INTACT TO RT CHEST.DENIES NEEDS.BREAKFAST TRAY GIVEN.CL IN REACH.
[2016-09-30 12:00] VITALS: BP 102/59
--- NOTE | 2016-09-30 12:00 | NUR ---
SITTING UP ON SIDE OF BED EATING LUNCH.
--- NOTE | 2016-09-30 16:00 | NUR ---
RESTING QUIETLY.CL IN REACH.
--- NOTE | 2016-09-30 19:45 | NUR ---
PT RESTING IN BED, EYES OPEN. ASSESSMENT COMPLETE. PT HAS RT CHEST HEMOSPLIT FOR DIALYSIS ACCESS. PT WEARING O2 AT 2L. FSBS 242. PT DENIES NEEDS. WCTM. BED LOW. CL IN REACH.
[2016-09-30 20:49] VITALS: BP 92/49
--- NOTE | 2016-09-30 21:35 | NUR ---
PT HS MEDS ADMINISTERED. PT DENIES NEEDS. WCTM. BED LOW. CL IN REACH.
--- NOTE | 2016-09-30 23:35 | NUR ---
PT RESTING, EYES CLOSED. BED LOW. CL IN REACH.
[2016-10-01 00:03] VITALS: BP 104/52
--- NOTE | 2016-10-01 03:25 | NUR ---
PT RESTING, EYES CLOSED. RR ARE EVEN AND UNLABORED. WCTM. BED LOW. CL IN REACH.
[2016-10-01 05:56] VITALS: BP 90/46
--- NOTE | 2016-10-01 06:07 | NUR ---
PT VS, DAILY WT AND FSBS TAKEN. FSBS 121 REQUIRES NO INSULIN. PT DENIES FURTHER NEEDS. BED LOW. CL IN REACH.
--- NOTE | 2016-10-01 07:03 | NUR ---
RESTING QUIETLY IN BED CALL LIGHT IN REACH
[2016-10-01 07:28] LABS: BASOPHILS 0.2 % (0-2); EOSINOPHILS 3.5 % (0-7); HEMATOCRIT 27.2 % (42.0-54.0); HEMOGLOBIN 9.1 g/dL (13.5-17.5); IMMATURE GRANULOCYTES 0.2 % (0-5); LYMPHOCYTES 15.2 % (15-50); MCH 31.3 pg (26.0-34.0); MCHC 33.5 g/dL (31.0-37.0); MCV 93.5 fL (80.0-100.0); MEAN PLATELET VOLUME 9.2 fL (7.4-10.4); MONOCYTES 7.5 % (2-11); NEUTROPHILS 73.4 % (40-80); PLATELET COUNT 148 10x3/uL (130-400); RBC 2.91 10x6/uL (4.20-6.10); RDW 13.9 % (11.5-14.5); WBC 6.2 10x3/uL (4.8-10.8)
[2016-10-01 07:41] LABS: ANION GAP 13.8 mmol/L (8-16); CALCIUM 8.8 mg/dL (8.5-10.1); CARBON DIOXIDE 29.1 mmol/L (21.0-32.0); CREATININE - SERUM 8.8 mg/dL (0.6-1.3); PHOSPHOROUS 7.7 mg/dL (2.5-4.9); POTASSIUM - SERUM 3.9 mmol/L (3.5-5.1)
--- NOTE | 2016-10-01 09:38 | NUR ---
PT IS UP AMBULATING WITH PT AT THIS TIME. NO ACUTE DISTRESS NOTED.
--- NOTE | 2016-10-01 11:42 | NUR ---
PT IS PARTICIPATING IN THERAPY AT THIS TIME.
[2016-10-01 12:10] VITALS: BP 95/52
--- NOTE | 2016-10-01 13:31 | NUR ---
Nutrition Follow Up: Pt stated that his appetite is good. He is eating 93% meal avg on a Renal ADA diet. Wt gain since admit noted. +BM 09/28/16. Labs reviewed - BUN, Cr, Phos elevated. Meds noted including Lasix, Lantus, Regular Insulin. Pt with good po intake at this time. Rec continue current diet. RD will continue to monitor pt progress.
--- NOTE | 2016-10-01 13:49 | NUR ---
PT RESTING IN BED WITH EYES CLOSED BETWEEN THERAPY.
--- NOTE | 2016-10-01 15:17 | NUR ---
CARE TEAM MEETING: PATIENT PROGRESSING IN THERAPY . TENATIVE DISCHARGE DATE IS 10/10/16. WILL CONTINUE TO FOLLOW WITH PATIENT UNTIL DISCHARGED
--- NOTE | 2016-10-01 16:09 | NUR ---
PT RESTING IN BED WITH EYES CLOSED.
[2016-10-01 17:00] VITALS: BP 99/65
[2016-10-01 19:00] VITALS: BP 112/57
--- NOTE | 2016-10-01 20:05 | NUR ---
PT RECEIVED FROM DIALYSIS. PT DINNER TRAY SERVED. PT DENEIS FURTHER NEEDS. BED LOW. CL IN REACH.
--- NOTE | 2016-10-01 21:10 | NUR ---
PT HS MEDS ADMINISTERED. PT ATE 100% OF HIS DINNER. PT DENEIS FURTHER NEEDS. BED LOW. CLIN REACH.
[2016-10-02 00:10] VITALS: BP 119/54
--- NOTE | 2016-10-02 00:11 | NUR ---
PT VS TAKEN. PT DENIES NEEDS. WCTM. BED LOW. CL INR EACH.
--- NOTE | 2016-10-02 03:38 | NUR ---
PT RESTING, EYES CLOSED. RESP EVEN AND UNLABORED. WCTM. BED LOW. CL IN REACH.
[2016-10-02 05:56] VITALS: BP 110/50
--- NOTE | 2016-10-02 06:07 | NUR ---
PT AM MEDS ADMINISTERED. VS AND WEIGHT TAKEN. PT DENIES NEEDS. BED LOW. CL IN REACH.
--- NOTE | 2016-10-02 07:30 | NUR ---
PT IS RESTING IN BED WITH EYES CLOSED. AWOKE EASILY TO VERBAL STIMULI. PT DENIES ACUTE PAIN OR DISCOMFORT. VSS. O2 IS OFF AT THIS TIME. PULSE OX IS [94%. RIGHT CHEST HEMISPLIT CATH NOTED. SR'S ARE UP X 3 IN BED. CALL LIGHT AND BEDSIDE TABLE ARE WITHIN EASY REACH.
--- NOTE | 2016-10-02 07:54 | NUR ---
SITTING UP EATING BREAKFAST CALL LIGHT IN REACH
--- NOTE | 2016-10-02 09:03 | NUR ---
PT IS RESTING IN BED AWAITING THERAPY. NO NEEDS VOICED.
--- NOTE | 2016-10-02 11:33 | NUR ---
PT IS IN THERAPY AT THIS TIME.
[2016-10-02 12:38] VITALS: BP 101/58
--- NOTE | 2016-10-02 13:45 | NUR ---
TELMA HAYWOOD APN HERE TO SEE PT.
[2016-10-02 18:03] VITALS: BP 114/72
--- NOTE | 2016-10-02 18:04 | NUR ---
PT RESTING IN BED WATCHING TV AFTER DINNER. NO NEEDS VOICED.
--- NOTE | 2016-10-02 19:29 | NUR ---
PT RESTING QUIETLY ON RIGHT SIDE, RESPIRATIONS REGULAR AND UNLABORED.
[2016-10-03 00:03] VITALS: BP 133/56
--- NOTE | 2016-10-03 00:07 | NUR ---
PT UP TO BATHROOM, STATED HE VOIDED A LITTLE AND HAD A BM.
--- NOTE | 2016-10-03 00:08 | NUR ---
PT NEEDS REMINDER FOR W/C SAFETY WITH LOCKING BREAKS. PT ABLE TO PROPEL HIS W/C SHORT DISTANCES.
[2016-10-03 06:34] LABS: BASOPHILS 0.2 % (0-2); HEMATOCRIT 27.1 % (42.0-54.0); HEMOGLOBIN 9.1 g/dL (13.5-17.5); IMMATURE GRANULOCYTES 0.2 % (0-5); LYMPHOCYTES 22.3 % (15-50); MCH 31.1 pg (26.0-34.0); MCHC 33.6 g/dL (31.0-37.0); MCV 92.5 fL (80.0-100.0); MEAN PLATELET VOLUME 9.3 fL (7.4-10.4); MONOCYTES 10.9 % (2-11); NEUTROPHILS 62.4 % (40-80); PLATELET COUNT 162 10x3/uL (130-400); RBC 2.93 10x6/uL (4.20-6.10); RDW 13.8 % (11.5-14.5)
[2016-10-03 06:36] VITALS: BP 104/69
[2016-10-03 07:00] LABS: ANION GAP 14.5 mmol/L (8-16); CALCIUM 8.8 mg/dL (8.5-10.1); CARBON DIOXIDE 30.1 mmol/L (21.0-32.0); CREATININE - SERUM 8.9 mg/dL (0.6-1.3); POTASSIUM - SERUM 3.6 mmol/L (3.5-5.1)
--- NOTE | 2016-10-03 07:35 | NUR ---
pt stated he slept well. respirations regular and unlaobred, no s/s of acute distress.
[2016-10-03 08:47] VITALS: BP 126/62
[2016-10-03 18:53] VITALS: BP 128/62
--- NOTE | 2016-10-03 19:05 | NUR ---
PT HAD AN UNEVENTFUL DAY TODAY. NO CHANGES IN HEALTH STATUS TO REPORT. VITAL SIGNS WNL.
--- NOTE | 2016-10-03 20:30 | NUR ---
PT EATING HS SNACK, SMILES OCCASIONALLY, PT DISAPPOINTED RE DIALYSIS TODAY AND THAT THEY HAD TO STOP BECAUSE HIS BP WAS TOO LOW.
[2016-10-04 00:20] VITALS: BP 151/51
--- NOTE | 2016-10-04 00:28 | NUR ---
PT AWAKENED FOR VITAL SIGNS, DENIES ANY NEEDS OR PAIN.
--- NOTE | 2016-10-04 03:06 | NUR ---
PT. IN BED LYING ON HIS RIGHT SIDE WITH HOB UP FOR COMFORT. EYES CLOSED AND RESP. EVEN. CALL LIGHT WITHIN REACH.
[2016-10-04 06:40] VITALS: BP 124/56
--- NOTE | 2016-10-04 07:00 | NUR ---
PT WAS RECEIVED IN BED AWAKE AND ORIENTED X 2 AT THE BEGINNING OF THIS SHIFT. NO SIGNS OF ANY DISCOMFORT OR DISTRESS AT THIS TIME. CALL LIGHT IS IN REACH. PT IS A MIN ASSIST TO BATHROOM.
[2016-10-04 12:00] VITALS: BP 120/71
--- NOTE | 2016-10-04 18:28 | NUR ---
PT HAD AN UNEVENTFUL DAY TODAY. NO SIGNS OF ANY DISCOMFORT OR DISTRESS FOUND.
[2016-10-04 18:32] VITALS: BP 127/68
[2016-10-04 19:00] VITALS: BP 127/668
--- NOTE | 2016-10-04 21:53 | NUR ---
PT HS MEDS ADMINISTERED. PT DENIES NEEDS. BED LOW. CL IN REACH.
--- NOTE | 2016-10-04 23:25 | NUR ---
PT RESTING, EYES CLOSED. BED LOW. CL IN REACH.
--- NOTE | 2016-10-05 01:15 | NUR ---
PT RESTING, EYES CLOSED. BED LOW. CL IN REACH.
[2016-10-05 01:25] VITALS: BP 142/66
--- NOTE | 2016-10-05 03:25 | NUR ---
PT RESTING, EYES CLOSED. BED LOW. CL IN REACH.
[2016-10-05 06:05] VITALS: BP 136/66
--- NOTE | 2016-10-05 08:00 | NUR ---
SHIFT ASSMT COMPLETED.
[2016-10-05 12:00] VITALS: BP 137/60
--- NOTE | 2016-10-05 12:00 | NUR ---
SITTING UP EATING LUNCH.
[2016-10-05 18:00] VITALS: BP 138/69
--- NOTE | 2016-10-05 19:25 | NUR ---
PT. IN BED WITH HOB UP FOR COMFORT AND IS WATCHING TV. NO VOICED NEEDS AT THIS TIME. ASSESSMENT COMPLETED. CALL LIGHT WITHIN REACH. PT. DID REQUEST AMANDA YORK FOR HIS BEDTIME SNACK TONIGHT.
[2016-10-05 20:00] VITALS: BP 135/71
--- NOTE | 2016-10-05 22:30 | NUR ---
PT. REQUESTED 2 CONTAINERS OF ORANGE SHERBERT FOR HIS BEDTIME SNACK. PT. ATE 100%.
--- NOTE | 2016-10-05 23:07 | NUR ---
PT. IN BED WITH HOB UP FOR COMFORT AND IS WATCHING TV. NO VOICED NEEDS AT THIS TIME. CALL LIGHT WITHIN REACH.
[2016-10-06 00:47] VITALS: BP 154/78
--- NOTE | 2016-10-06 03:09 | NUR ---
PT. IN BED WITH HOB FLAT FOR COMFORT. EYES CLOSED AND RESP. EVEN. CALL LIGHT WITHIN REACH.
[2016-10-06 05:24] VITALS: BP 130/78
[2016-10-06 07:25] LABS: BASOPHILS 0.2 % (0-2); EOSINOPHILS 4.5 % (0-7); HEMATOCRIT 26.5 % (42.0-54.0); HEMOGLOBIN 9.1 g/dL (13.5-17.5); IMMATURE GRANULOCYTES 0.2 % (0-5); LYMPHOCYTES 19.1 % (15-50); MCH 31.1 pg (26.0-34.0); MCHC 34.3 g/dL (31.0-37.0); MCV 90.4 fL (80.0-100.0); MEAN PLATELET VOLUME 8.9 fL (7.4-10.4); MONOCYTES 7.1 % (2-11); NEUTROPHILS 68.9 % (40-80); PLATELET COUNT 169 10x3/uL (130-400); RBC 2.93 10x6/uL (4.20-6.10); RDW 13.5 % (11.5-14.5); WBC 5.4 10x3/uL (4.8-10.8)
[2016-10-06 07:29] LABS: ANION GAP 14.6 mmol/L (8-16); CALCIUM 8.8 mg/dL (8.5-10.1); CREATININE - SERUM 9.2 mg/dL (0.6-1.3); POTASSIUM - SERUM 3.6 mmol/L (3.5-5.1)
--- NOTE | 2016-10-06 07:30 | NUR ---
PT IS RESTING QUIETLY IN BED WITH EYES CLOSED. AWOKE EASILY TO VERBAL STIMULI. ALERT AND ORIENTED X 3. DENIES ACUTE PAIN OR DISCOMFORT. VSS. RIGHT CHEST HEMISPLIT CATH NOTED. SR'S ARE UP X 3 IN BED. CALL LIGHT AND BEDSIDE TABLE ARE WITHIN EASY REACH.
--- NOTE | 2016-10-06 09:15 | NUR ---
I WAS APPROACHED BY ELEANOR, THE APARICIO WHO WAS GIVING PT A SHOWER. SHE STATED THAT HE WAS SPEAKING TO HER ABOUT SUICIDE WHILE IN THE SHOWER. 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 DR MARI IS ON THE UNIT. I NOTIFIED HIM, AND HE RECCOMMENDED A [facility] CONSULT. CONSULT CALLED TO [facility] IN [facility], AND FACE SHEET DELIVERED TO THEM.
--- NOTE | 2016-10-06 09:47 | NUR ---
DIALYSIS COORDINATOR: PATHWAYS: [facility] Mon/Thu/Fri am. Records have been sent to the [facility] clinic. EMILY HAMMONDS
--- NOTE | 2016-10-06 09:52 | NUR ---
PT IS SHOWERING WITH OT AT THIS TIME.
--- NOTE | 2016-10-06 12:00 | NUR ---
PT IS FEEDING SELF LUNCH IN HIS ROOM. NO DISTRESS NOTED.
[2016-10-06 12:07] VITALS: BP 112/58
--- NOTE | 2016-10-06 14:30 | NUR ---
PT TO DIALYSIS VIA WC AT THIS TIME.
--- NOTE | 2016-10-06 15:07 | NUR ---
REFERRAL [facility]ED TO THE [facility] PER PATIENT CHOICE
--- NOTE | 2016-10-06 18:12 | NUR ---
PT RETURNED TO UNIT AT THIS TIME. NO NEEDS VOICED.
--- NOTE | 2016-10-06 18:18 | NUR ---
EATING SUPPER CALL LIGHT IN REACH
[2016-10-06 18:21] VITALS: BP 104/69
--- NOTE | 2016-10-06 19:20 | NUR ---
PT RECEIVED IN BED WITH EYES OPEN WATCHING TV. NO NEEDS OR CONCERNS MADE KNOWN AT THIS TIME. CALL LIGHT IN REACH. WILL CONTINUE TO OBSERVE.
[2016-10-07 00:15] VITALS: BP 143/74
--- NOTE | 2016-10-07 00:42 | NUR ---
PT IN BED WITH EYES OPEN WATCHING TV. REQUEST ASSIST WITH WHEELCHAIR TO GO TO BATHROOM URINE ONLY NOTED. PT BACK IN BED WITHOUT DIFFICULTY. CALL LIGHT IN REACH. WILL CONTINUE TO OBSERVE.
--- NOTE | 2016-10-07 04:05 | NUR ---
PT IN BED WITH EYES CLOSED AND CHEST RISING. NO SIGN/SYMPTOMS OF DISTRESS NOTED. CALL LIGHT IN REACH. WILL CONTINUE TO OBSERVE.
[2016-10-07 06:13] VITALS: BP 143/82
--- NOTE | 2016-10-07 06:41 | NUR ---
PT IN BED WITH EYES CLOSED AND CHEST RISING. NO SIGN/SYMPTOMS OF DISTRESS NOTED. RECEIVED INSULIN PER SLIDING SCALE. NO NEEDS MADE KNOWN AT THIS TIME. CALL LIGHT IN REACH.
--- NOTE | 2016-10-07 07:53 | NUR ---
PT IS FEEDING SELF BREAKFAST SITTING ON THE SIDE OF HIS BED. ALERT AND ORIENTED X 4. DENIES ACUTE DISCOMFORT THIS AM. SR'S ARE UP X 2 IN BED. CALL LIGHT AND BEDSIDE TABLE ARE WITHIN EASY REACH.
--- NOTE | 2016-10-07 09:41 | RHP ---
PATIENT: MARC CHADWICK MEDICAL RECORD: [id number] ACCOUNT: [id number] LOCATION:[facility]12 : 49 ADMISSION DATE: 09/26/16 REHABILITATION HISTORY AND PHYSICAL EXAMINATION POST ADMISSION PHYSICIAN EXAMINATION DATE OF ADMISSION: 09/26/2016 ADMITTING DIAGNOSIS: Cerebrovascular accident with left body involvement. HISTORY OF PRESENT ILLNESS: The patient admitted to rehab with a diagnosis of right hemispheric infarction. This is a 71-year-old gentleman with end-stage renal disease, chronically dialyzes. He presented to the Emergency Room after falling and dizziness prior to falling. He had some chest pain. He was recently discharged home on August 26 from being hospitalized for stroke. During that admission, he was found to have 90% of his right internal carotid stenosis, but surgery has to be postponed due to a stroke. CT of his head was negative form the findings. Cardiology was consulted for chest pain, dizziness and an elevated troponin. On September 22, he went to the production laborer for PTCA and stent of the LAD, which was 80% stenosis prior to admission. He lives alone and has a caregiver that comes in 2 days a week, clean and run errands. He was independent with ADLs and mobility. He uses public transport to go to and from dialysis. Currently, he is moderate to max assist for ADLs and mobility. He is weak and tires easily. He is wearing O2 continuously at 3 liters. He plans to return home to his prior level of functioning after rehab. COMORBIDITIES: In this patient include, end-stage renal disease, hemodialysis 90% right carotid stenosis, chest pain, elevated troponin, PTCA with stent, coronary artery disease, angina, diabetes, fever, acute mental status changes, hypertension, weakness, dizziness, anemia of chronic disease, hypokalemia and frequent falls. PAST MEDICAL HISTORY: Significant for CVA, TIA in the past. He also got a history of diabetes, had history of hypertension, UT and coronary artery disease. PAST SURGICAL HISTORY: Includes knee surgery, appendectomy, tonsillectomy, adenoidectomy, pacemaker placement, defibrillator and coronary artery bypass grafting. ALLERGIES: METHADONE. CURRENT MEDICATIONS: Include Flomax 0.4 daily, Zoloft 50 mg daily, Ditropan 10 mg daily, Protonix 40 mg daily, lisinopril 40 mg daily, isosorbide 30 mg daily, furosemide 40 mg daily, finasteride 5 mg daily, ferrous sulfate 325 mg daily, Plavix 75 mg daily, aspirin chewable 81 mg daily and Norvasc 10 mg daily. He is on a glucose protocol if needed for low blood sugar. He is also on intermittent resistant sliding scale with insulin. He is on Lantus 20 units subQ at bedtime. He is on Colace 240 mg daily, Lipitor 80 mg at bedtime and Eliquis 5 mg b.i.d. HABITS: No alcohol or tobacco use. FAMILY HISTORY: Noncontributory. SOCIAL HISTORY: The patient hopes to return back home and get back to his prior HISTORY AND PHYSICAL [id number] MARC CHADWICK S level of functioning. REVIEW OF SYSTEMS: GENERAL: Does complain of weakness, mainly on one side. HEENT: Denies cold, cough, or congestion. CARDIOVASCULAR: Denies chest pain. No shortness of breath. PHYSICAL EXAMINATION: VITAL SIGNS: Stable, afebrile. GENERAL: An elderly gentleman, in no acute distress, alert upon exam. HEENT: Normocephalic and atraumatic. Mucosa moist. NECK: Supple. LUNGS: Clear at this time. HEART: Regular rate and rhythm. ABDOMEN: Benign. EXTREMITIES: No clubbing, cyanosis, or edema. NEUROLOGIC: Consistent with some left-sided weakness. LABORATORY DATA: His white count is 5.3, H&H 10 and 31, and platelet count is noted to be 136. Sodium is 139, potassium 3.8, BUN and creatinine of 40 and 6.6, and blood sugar is noted to be 161. ASSESSMENT: This is a 71-year-old gentleman admitted to the rehab with a working diagnosis of cerebrovascular accident with right hemispheric involvement and left-sided body involvement. The patient has potential to make improvement. We instituted the following multidisciplinary therapies including to, but not limited to physical, occupational, respiratory, speech, nutritional services, prosthetics and orthotics. Given his complex condition and risk for more complications, rehabilitation services cannot be provided at a low level of care such as a halfway facility. PLAN: 1. Admit to [facility] rehab for intensive inpatient therapy to include the following disciplines: A. Physical therapy to improve gait, all transfer skills and bed mobility to a modified independent level. B. Occupational therapy to improve activities of daily living at a modified independent level. C. Case management to assist with discharge planning and placement options. D. Nutrition to assist with nutritional needs. E. Rehabilitation nursing to assist in monitoring the patient's underlying medical conditions and to assist with any type of bowel or bladder management. 2. The patient's current medication and medical care will be continued. 3. The patient will be placed on standard fall precautions. 4. The patient's estimated length of stay is approximately 7-10 days. 5. We will go ahead and continue to follow this patient along with nephrology, appreciate their help. 6. We will discuss this patient during care team staff meeting this week. TRANSINT:[id number] Voice Confirmation ID: [id number] DOCUMENT ID: [id number] HISTORY AND PHYSICAL [id number] MARC CHADWICK SCOTT MD at 0941 CC: [id number] DICTATION DATE: 09/27/16 1213 ACCESS ASSOC: 09/27/16 1341 ADM IN [facility] [address] [place] [address]
--- NOTE | 2016-10-07 09:50 | NUR ---
PT IS PARTICIPATING IN THERAPY AT THIS TIME.
[2016-10-07 12:06] VITALS: BP 103/59
--- NOTE | 2016-10-07 12:54 | NUR ---
PT IS FEEDING SELF LUNCH IN HIS ROOM WITHOUT DIFFICULTY. NO DISTRESS NOTED.
--- NOTE | 2016-10-07 13:51 | NUR ---
Nutrition Follow Up: Pt was on the phone at the time of RD visit. Interview deferred. Pt is eating 88% meal avg on a renal ADA diet. Wt stable. +BM 10/06/16. Labs reviewed - BUN, Cr elevated. Meds noted including Lantus, Lasix, Humulin. Pt with good po intake. Rec continue current diet. RD following.
--- NOTE | 2016-10-07 16:25 | NUR ---
LETTER WRITTEN AND GIVEN TO PATIENT FRIEND, MR. PLEITEZ TO TAKE TO COURT HOUSE TO INFORM THE COURT PATIENT IN HOSPITAL AND WILL BE UNABLE TO ATTEND COURT ON 10/10/16. COPY OF SUPENA AND LETTER IN PATIENT CHART
--- NOTE | 2016-10-07 17:36 | NUR ---
PT IS FEEDING SELF LUNCH IN HIS ROOM. NO DISTRESS NOTED.
[2016-10-07 18:11] VITALS: BP 104/61
--- NOTE | 2016-10-07 18:27 | NUR ---
RESTING QUIETLY IN BED CALL LIGHT IN REACH
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
[2016-10-08 00:33] VITALS: BP 112/54
--- NOTE | 2016-10-08 02:04 | NUR ---
PT AWAKE WATCHING TV, PT AWOKE DURING MIDNIGHT VITALS AND IS HAVING DIFFICULTY FALLING BACK TO SLEEP. DENIES PAIN OR NEEDS.
[2016-10-08 05:38] LABS: BASOPHILS 0.3 % (0-2); EOSINOPHILS 4.2 % (0-7); HEMATOCRIT 26.7 % (42.0-54.0); HEMOGLOBIN 9.3 g/dL (13.5-17.5); IMMATURE GRANULOCYTES 0.2 % (0-5); LYMPHOCYTES 18.5 % (15-50); MCH 31.4 pg (26.0-34.0); MCHC 34.8 g/dL (31.0-37.0); MCV 90.2 fL (80.0-100.0); MEAN PLATELET VOLUME 9.1 fL (7.4-10.4); MONOCYTES 6.2 % (2-11); NEUTROPHILS 70.6 % (40-80); PLATELET COUNT 149 10x3/uL (130-400); RBC 2.96 10x6/uL (4.20-6.10); RDW 13.6 % (11.5-14.5); WBC 5.9 10x3/uL (4.8-10.8)
[2016-10-08 05:54] LABS: ANION GAP 14.4 mmol/L (8-16); CARBON DIOXIDE 27.8 mmol/L (21.0-32.0); CREATININE - SERUM 8.1 mg/dL (0.6-1.3); PHOSPHOROUS 6.9 mg/dL (2.5-4.9); POTASSIUM - SERUM 3.2 mmol/L (3.5-5.1)
[2016-10-08 06:43] VITALS: BP 130/54
--- NOTE | 2016-10-08 08:00 | NUR ---
AWAKE FOR BREAKFAST.VERY QUIET.SITTING ON SIDE OF BED.DENIES NEEDS.CL IN REACH.
[2016-10-08 12:13] VITALS: BP 151/77
--- NOTE | 2016-10-08 13:30 | NUR ---
TO DIALYSIS/BED.
--- NOTE | 2016-10-08 14:24 | NUR ---
CARE TEAM MEETING: PATIENT PROGRESSING WELL AND WILL DISCHARGE TO THE [facility] ON 10/10/16. WILL CONTINUE TO FOLLOW WITH PATIENT UNTIL DISCHARGED.
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
--- NOTE | 2016-10-08 16:45 | NUR ---
BACK FROM DIALYSIS.VSS.DENIES NEEDS.
[2016-10-08 18:00] VITALS: BP 122/65
--- NOTE | 2016-10-08 19:20 | NUR ---
PT RESTING QUIETLY IN BED, WATCHING TV. PT DENIES PAIN, NO S/S OF ACUTE DISTRESS.
[2016-10-09] VITALS: BP 120/53
--- NOTE | 2016-10-09 00:05 | NUR ---
PT AWAKE AND WATCHING TV, DENIES PAIN, RESPIRATIONS REGULAR AND UNLABORED. PT DENIES NEEDS.
--- NOTE | 2016-10-09 02:57 | NUR ---
PT RESTING QUIETLY, NO S/S OF ACUTE DISTRESS. RESPIRATIONS REGULAR AND UNLABORED.
[2016-10-09 05:31] VITALS: BP 112/59
[2016-10-09 07:18] LABS: BASOPHILS 0.3 % (0-2); HEMATOCRIT 28.8 % (42.0-54.0); HEMOGLOBIN 9.7 g/dL (13.5-17.5); IMMATURE GRANULOCYTES 0.3 % (0-5); LYMPHOCYTES 19.2 % (15-50); MCH 30.8 pg (26.0-34.0); MCHC 33.7 g/dL (31.0-37.0); MCV 91.4 fL (80.0-100.0); MEAN PLATELET VOLUME 9.3 fL (7.4-10.4); MONOCYTES 7.8 % (2-11); NEUTROPHILS 68.4 % (40-80); PLATELET COUNT 125 10x3/uL (130-400); RBC 3.15 10x6/uL (4.20-6.10); RDW 13.5 % (11.5-14.5); WBC 6.7 10x3/uL (4.8-10.8)
[2016-10-09 07:24] LABS: ANION GAP 12.9 mmol/L (8-16); CALCIUM 8.8 mg/dL (8.5-10.1); CARBON DIOXIDE 30.3 mmol/L (21.0-32.0); CREATININE - SERUM 6.5 mg/dL (0.6-1.3); POTASSIUM - SERUM 3.2 mmol/L (3.5-5.1)
--- NOTE | 2016-10-09 07:30 | NUR ---
PT IS RESTING IN BED WITH EYES OPEN. ALERT AND ORIENTED X 3. DENIES ACUTE DISCOMFORT AT THIS TIME. RIGHT CHEST HEMISPLIT CATHETER NOTED. SR'S ARE UP X 2 IN BED. CALL LIGHT AND BEDSIDE TABLE ARE WITHIN EASY REACH.
--- NOTE | 2016-10-09 10:18 | NUR ---
PT IS PARTICIPATING IN THERAPY AT THIS TIME.
[2016-10-09 12:14] VITALS: BP 116/63
--- NOTE | 2016-10-09 14:24 | NUR ---
PT IS PARTICIPATING IN THERAPY AT THIS TIME.
--- NOTE | 2016-10-09 15:23 | NUR ---
PATIENT DISCHARGING TO [facility] VIA FACILITY [facility]. PATIENT WILL CONTINUE SAME HD DAYS, M-W-F @ 7am AT [facility] [place]. APPOINTMENTS: DR. ACEVES 11/10/16 @ 11:00 AND APPOINTMENT WITH PATIENT PCP, DR. GISSEL KELLY WILL BE MADE AT TIME OF DISCHARGE FROM FACILITY. PATIENT CHOICE FORM FOR HOME HEALTH AND [facility] FORM SIGNED, EXPLAINED AND FILED IN CHART.WILL CONTINUE TO FOLLOW WITH PATIENT UNTIL DISCHARGED
--- NOTE | 2016-10-09 18:00 | NUR ---
RESTING QUIETLY.CL IN REACH.
[2016-10-09 18:51] VITALS: BP 105/54
--- NOTE | 2016-10-09 19:30 | NUR ---
PT. IN BED WITH HOB NOT ELEVATED AND PT. IS WATCHING TV. INFORMED PT. OF EARLY AM BREAKFAST TRAY HE WILL BE GOING TO DIALYSIS AT 0730, AND PT. ACTS LIKE THIS IS THE FIRST HE'S HEARD OF IT AND WANTED TO KNOW WHY. EXPLAINED HE IS GOING TO THE [facility] AFTER DIALYSIS TOMORROW. PT. NODDED HEAD THAT HE UNDERSTOOD THEN WANTED TO KNOW WHEN HE WAS GOING TO HAVE HIS CAROTID ARTERY SURGERY DONE. INFORMED PT. THAT I DIDN'T KNOW ANYTHING ABOUT ANY SURGERY AND THAT HE WOULD HAVE TO ASK HIS MD ABOUT THAT. ASSESSMENT COMPLETED. NO VOICED NEEDS AT THIS TIME. CALL LIGHT WITHIN REACH.
--- NOTE | 2016-10-09 23:53 | NUR ---
PT. IN BED WITH HOB NEARLY FLAT FOR COMFORT AND LYING ON HIS LEFT SIDE. EYES ARE CLOSED AND RESP. DEEP AND EVEN. CALL LIGHT WITHIN REACH.
[2016-10-10 00:27] VITALS: BP 127/60
--- NOTE | 2016-10-10 03:24 | NUR ---
PT. IN BED LYING ON HIS RIGHT SIDE WITH EYES CLOSED AND RESP. DEEP AND EVEN. CALL LIGHT WITHIN REACH.
[2016-10-10 04:58] VITALS: BP 132/57
--- NOTE | 2016-10-10 08:15 | NUR ---
PT RESTING IN BED WITH EYES OPEN CALL LIGHT IN REACH WILL MONITER PT EATING LUNCH NO PROBLEMS WILL MONITER
--- NOTE | 2016-10-10 09:56 | NUR ---
MED REC AND DISCHARGE SUMMARY FAXED TO THE [facility]
--- NOTE | 2016-10-10 15:45 | NUR ---
PT HAS HAD AN UNEVENTFUL DAY. STABLE CONDITION OBSERVED. NO SIGNS OF ANY DISCOMFORT OR DISTRESS.
--- NOTE | 2016-10-10 16:00 | NUR ---
PT DISCHARGED TO [facility] REPORT CALLED PT DISCHARGE SUMMARY AND DISCHARGE MED LIST SENT WITH THE EXTENSION WORKER TOLERATED WELL
== END 2016-10-10 16:43 | DRG 64 ==
LOC: D.REHAB 16:22
PROVIDERS: Internal Medicine Nephrology; ADMIT Emergency Medicine
PROC: 5A1D60Z (ICD-10-PCS; principal; 2016-09-29)
DX: I63.9 Cerebral infarction, unspecified (principal); N18.6 End stage renal disease; I12.0 Hypertensive chronic kidney disease with stage 5 chronic kidney disease or end stage renal disease; N17.9 Acute kidney failure, unspecified; E11.22 Type 2 diabetes mellitus with diabetic chronic kidney disease; Z99.2 Dependence on renal dialysis; I65.21 Occlusion and stenosis of right carotid artery; R07.9 Chest pain, unspecified; Z95.5 Presence of coronary angioplasty implant and graft; R41.82 Altered mental status, unspecified; R53.1 Weakness; R42 Dizziness and giddiness; D63.1 Anemia in chronic kidney disease; I25.119 Atherosclerotic heart disease of native coronary artery with unspecified angina pectoris; E87.6 Hypokalemia; Z91.81 History of falling

== ENCOUNTER 2016-10-24 09:27 | Emergency (ER) | payer MEDICARE ==
[2016-09-27 11:02] VITALS: BMI 26.1
[2016-10-24 10:03] LABS: BASOPHILS 0.1 % (0-2); HEMATOCRIT 29.1 % (42.0-54.0); HEMOGLOBIN 9.5 g/dL (13.5-17.5); IMMATURE GRANULOCYTES 0.3 % (0-5); LYMPHOCYTES 9.7 % (15-50); MCH 30.4 pg (26.0-34.0); MCHC 32.6 g/dL (31.0-37.0); MCV 93.3 fL (80.0-100.0); MEAN PLATELET VOLUME 9.1 fL (7.4-10.4); MONOCYTES 9.1 % (2-11); NEUTROPHILS 77.8 % (40-80); PLATELET COUNT 192 10x3/uL (130-400); RBC 3.12 10x6/uL (4.20-6.10); WBC 6.7 10x3/uL (4.8-10.8)
[2016-10-24 10:20] LABS: ANION GAP 14.9 mmol/L (8-16); BILIRUBIN - TOTAL 0.36 mg/dL (0.2-1.3); CARBON DIOXIDE 28.2 mmol/L (21.0-32.0); CREATININE - SERUM 8.8 mg/dL (0.6-1.3); POTASSIUM - SERUM 3.1 mmol/L (3.5-5.1); PROTEIN - SERUM 6.8 g/dL (6.4-8.2)
[2016-10-24 13:08] LABS: APPEARANCE CLEAR (CLEAR); BILIRUBIN NEGATIVE (NEGATIVE); COLOR YELLOW (YELLOW); GLUCOSE 100 mg/dL (NEGATIVE); KETONE NEGATIVE (NEGATIVE); LEUKOCYTE ESTERASE TRACE (NEGATIVE); NITRITE NEGATIVE (NEGATIVE); PROTEIN 3+ mg/dL (NEGATIVE); RED CELLS - URINE 25-50 /hpf (0-5); UROBILINOGEN NORMAL (NORMAL)
[2016-10-24 13:09] LABS: BACTERIA MODERATE /hpf (NONE SEEN); EPITHELIAL CELLS 0-5 /hpf (0-5)
[2016-10-24 13:10] LABS: UDS - AMPHET NEGATIVE QUAL (NEGATIVE); UDS - BARB NEGATIVE QUAL (NEGATIVE); UDS - BENZO NEGATIVE QUAL (NEGATIVE); UDS - COCAINE NEGATIVE QUAL (NEGATIVE); UDS - METH NEGATIVE QUAL (NEGATIVE); UDS - OPIATE NEGATIVE QUAL (NEGATIVE); UDS - PCP NEGATIVE QUAL (NEGATIVE); UDS - THC NEGATIVE QUAL (NEGATIVE)
== END 2016-10-24 14:05 | disposition home or self-care (01) ==
LOC: D.ER 09:27
PROVIDERS: Emergency Medicine
DX: N39.0 Urinary tract infection, site not specified (principal); I25.10 Atherosclerotic heart disease of native coronary artery without angina pectoris; F03.90 Unspecified dementia, unspecified severity, without behavioral disturbance, psychotic disturbance, mood disturbance, and anxiety; I12.9 Hypertensive chronic kidney disease with stage 1 through stage 4 chronic kidney disease, or unspecified chronic kidney disease; N18.9 Chronic kidney disease, unspecified; Z99.2 Dependence on renal dialysis; E78.5 Hyperlipidemia, unspecified; E11.9 Type 2 diabetes mellitus without complications; Z79.4 Long term (current) use of insulin; Z95.0 Presence of cardiac pacemaker; I45.10 Unspecified right bundle-branch block

== ENCOUNTER 2016-11-17 16:05 | Inpatient (IN) | payer MEDICARE ==
--- NOTE | 2016-11-15 12:08 | HP ---
PATIENT: MARC CHADWICK MEDICAL RECORD: [id number] ACCOUNT: [id number] LOCATION:[facility] : 47 ADMISSION DATE: 11/18/16 HISTORY AND PHYSICAL EXAMINATION MARC Terry (71yo, M) ID# [id number]. Date/Time11/13/2016 10:07HPKQI1947Sernew mexico [facility] Dept.[facility] ClinicProviMichael PHILLIPS MDInsuranceMed Primary: [place] (MEDICARE) Insurance # : [id number] Referring Provider Name : JANNIE WHALEN Employer Name : DISABLED Prescription: [email or web address] - This member could not be found in the payer's files. Please verify coverage and all member demographic information. Chief Complaint Followup: Carotid artery stenosis Patient's Care Team Referring Provider (): JANNIE WHALEN: [address] [address], , Vitals BP:130/80 sitting R arm 11/13/2016 10:38 amHR:88irreg 11/13/2016 10:39 amHt:5 ft 5 in 11/13/2016 10:29 amWt:173 lbs 11/13/2016 10:37 amBMI:28.8 11/13/2016 10:37 amAllergies Allergies not reviewed (last reviewed 09/18/2016) METHADONEMedications Medications not reviewed (last reviewed 09/18/2016) amLODIPine 10 mg tablet Take 1 tablet(s) every day by oral route.09/16/16 enteredCindy BrownAsprin Ec Low Dose 81 mg tablet,delayed release Take 1 tablet(s) every day by oral route.09/16/16 enteredCindy Browncholecalciferol (vit D3)(bulk) 2,000 units daily09/16/16 enteredCindy Browncyanocobalamin (vit B-12) 1,000 mcg tablet Take 1 microgram(s) every day by oral route.09/16/16 enteredCindy Browndocusate calcium 240mg daily/PRN09/16/16 enteredCindy BrownEliquis 5 mg tablet Take 1 tablet(s) twice a day by oral route.09/16/16 enteredCindy Brownferrous sulfate 325mg daily09/16/16 enteredCindy BrownHYDROcodone 10 mg-acetaminophen 325 mg tablet TK 1 T PO Q 4 TO 6 HOURS PRN P001/22/16 filledsurescriptsisosorbide mononitrate ER 30 mg tablet,extended release 24 hr Take 1 tablet(s) every day by oral route.09/16/16 enteredCindy BrownLantus Solostar 20 units SQ HS09/16/16 enteredCindy BrownLasix 40 mg tablet Take 1 tablet(s) every day by oral route.09/16/16 enteredCindy BrownLipitor 80 mg tablet Take 1 tablet(s) every day by oral route.09/16/16 enteredCindy Brownomeprazole 1 tablet at 60356709/16/16 enteredCindy Brownoxybutynin chloride 10mg daily09/16/16 enteredCindy BrownPlavix 75 mg tablet Take 1 tablet(s) every day by oral route.09/16/16 enteredCindy BrownProscar 5 mg tablet Take 1 tablet(s) every day by oral route.09/16/16 enteredCindy Browntamsulosin 0.4 mg capsule Take 1 capsule(s) every day by oral route.09/16/16 enteredCindy Brownthiamine HCl (vitamin B1) 100 mg tablet Take 1 tablet(s) every day by oral route.09/16/16 enteredCindy BrownToprol XL 100 HISTORY AND PHYSICAL [id number] MARC CHADWICK S mg tablet,extended release Take 1 tablet(s) twice a day by oral route.09/16/16 enteredCindy BrowntraZODone 50 mg tablet Take 1 tablet(s) every day by oral route.09/16/16 enteredCindy BrownZestril 40 mg tablet Take 1 tablet(s) every day by oral route.09/16/16 enteredCindy BrownProblems Reviewed Problems Coronary arteriosclerosis in [place] artery - Onset: 09/18/2016 Carotid artery stenosis - Onset: 09/16/2016 Family History Reviewed Family History Unspecified Relation- Coronary arteriosclerosisSocial History Reviewed Social History Cardiology Family history of heart disease?: Y Smoking Status: Current every day smoker (Notes: marijuana) High Cholesterol: Y High blood pressure: Y Alcohol intake: Moderate Is blood transfusion acceptable in an emergency?: Y Surgical History Reviewed Surgical History Other - LCEA Other - CABG Other - PTCA/stents Other - PPM placement Past Medical History Reviewed Past Medical History Angioplasty (balloon): Y BIV pacemaker (3-lead): Y Carotid Stenosis: Y Coronary Artery Disease: Y Heart stents: Y High Blood Pressure: Y Hyperlipidemia: Y Kidney Failure: Y - ESRD Documents for Discussion N/A Screening None recorded. HPI Cerebral Vascular Disease Reported by patient. Quality: weakness; numbess; dizziness; blurred vision; "I went to the hospital 2 weeks ago for low b/p." severe right internal carotid artery stenosis ROS Patient reports exercise intolerance but reports no fever, no night sweats, no significant weight gain, and no significant weight loss. He reports jugular vein distension but reports no swollen glands. He reports shortness of breath but reports no cough, no wheezing, and no coughing up blood. He reports no incontinence, no difficulty urinating, no hematuria, and no increased frequency; hemodialysis. He HISTORY AND PHYSICAL [id number] MARC CHADWICK S reports muscle aches, muscle weakness, arthralgias/joint pain, back pain, and swelling in the extremities. He reports dizziness but reports no loss of consciousness, no weakness, no numbness, no seizures, and no headaches. He reports no dry eyes, no irritation, and no vision change. He reports no difficulty hearing and no ear pain. He reports no frequent nosebleeds and no nose/sinus problems. He reports no sore throat, no bleeding gums, no snoring, no dry mouth, no mouth ulcers, no oral abnormalitie s , and no teeth problems. He reports no chest pain, no arm pain on exertion, no shortness of breath when walking, no shortness of breath when lying down, no palpitations, and no known heart murmur. He reports no abdominal pain, no vomiting, normal appetite , no diarrhea, not vomiting blood, no nausea, and no constipation. He reports no abnormal mole, no jaundice, and no rashes. He reports no depression, no sleep disturbances, feeling safe in relationship, and no alcohol abuse. He reports no fatigue. He repor ts no swollen glands and no bruising. He reports no runny nose, no sinus pressure, no itching, no hives, and no frequent sneezing. Physical Exam Patient is a 71-year-old male. Constitutional: General Appearance well developed and overweight; chronically ill appearing. Level of Distress chronically ill. Ambulation ambulation with cane. Cardiovascular: Apical Impulse not displaced or no thrill. Heart Auscultation normal s1 and s2; no murmurs, rubs, or gallops; and RRR. Arterial Pulses no abdominal aorta bruits, femoral bruits, or popliteal bruits; popliteal not palpable (bilaterally) and dorsalis pedis not palpable (bilaterally); and 2+ bilateral, carotid 2+ bilateral, and femoral 2+ bilateral. Edema no edema or varicosities. Lungs: Repiratory Effort no dyspnea. Percussion no hyperresonance or dullness or flatness. Auscultation no wheezing, rhonchi, or rales / crackles and breathing sounds normal, good air movement, and CTA except as noted. Abdomen: Bowl Sounds normal. Inspection and Palpation no tenderness, guarding, masses, or rebound tenderness and soft and non-distended. Liver non-tender and no hepatomegaly. Spleen non-tender and no splenomegaly. Hernia none palpable. Musculoskeletal System: Gait And Stance wide-based and irregular gait and stance. Digits and Nails normal nails, no cyanosis, and abnormal nails. Neurologic: Cranial Nerves grossly intact. Reflexes DTRs 2+ bilaterally throughout. Sensation grossly intact. Lymph Nodes: Lymph Nodes no cervical LAD, supraclavicular LAD, axillary LAD, or inguinal LAD. Eyes: Lids and Conjunctivae no discharge or pallor and non-injected. Pupils PERRLA. Cornea grossly intact. EOM EOMI. Lens clear. Sclerae non-icteric. Neck: Neck no masses or enlarged lymph nodes and supple, trachea midline, and carotid bruits (right). Thyroid no enlargement or nodules and non-tender. Skin: Inspection and Palpation no rash, lesions, ulcers, jaundice, or abnormal nevi. Assessment / Plan severe right internal carotid artery stenosis Coronary artery disease resolved Dr. Vidal with a stent HISTORY AND PHYSICAL [id number] MARC CHADWICK 1. Carotid artery stenosis I65.29: Occlusion and stenosis of unspecified carotid artery CAROTID STENOSIS: CARE INSTRUCTIONS Discussion Notes scheduled carotid Doppler study and right carotid endarterectomy blanca rios Coordinate with hemodialysis I have discussed the patient's disease process with him in detail as well as the alternative methods of treatment. We discussed right carotid endarterectomy and the expected benefits and risk which include bleeding, infection, stroke, , and the imponderables. He understands all of the above and wishes to proceed with right carotid endarterectomy FENG PHILLIPS MD at 1208 CC: [id number] DICTATION DATE: 11/13/16 1000 TOWEL SORTER: JANN 11/13/16 1619 PRE IN [facility] [address] [place] [address]
[~2016-11-17] VITALS: Ht 165.1 cm; Wt 75.3 kg
--- NOTE | ~2016-11-17 | OP ---
PATIENT NAME: MARC CHADWICK MEDICAL RECORD: [id number] :47 LOCATION:D.[facility] D.CV06 ADMISSION DATE:11/17/16 SURGEON: NISH WALLS MD DATE OF OPERATION: 11/20/2016 PREOPERATIVE DIAGNOSES: Malfunctioning HemoSplit catheter in a patient who is dependent on the HemoSplit catheters due to end-stage renal disease. POSTOPERATIVE DIAGNOSES: Malfunctioning HemoSplit catheter in a patient who is dependent on the HemoSplit catheters due to end-stage renal disease. PROCEDURE: Removal of malfunctioning HemoSplit catheter and placement of a new 23-cm HemoSplit catheter under fluoroscopic guidance. Immediate surgeon interpretation of fluoroscopic images. SURGEON: Nish Walls MD. HUMAN RESOURCES SAFETY MANAGER: None. BLOOD LOSS: Minimal. ANESTHESIA: Local with IV sedation. COMPLICATIONS: None. The risks, possible complications, alternatives to procedure were explained to the patient. He elects to proceed. OPERATIVE COURSE: The patient was conveyed to the operating room electively on 11/20/2016. General anesthesia was induced by anesthesia staff. The patient's chest and right neck were sterilely prepped and draped. A local anesthetic was used to infiltrate the skin and subcutaneous tissues around the tunneled catheter tract. I then incised some skin around the exit site. I advanced 0.35 Glidewire down both lumens of the HemoSplit catheter. I then withdrew the HemoSplit type catheter. I then loaded a new HemoSplit type catheter which was a 23 cm catheter onto the Glidewire. I advanced the HemoSplit catheter and buried the cuff in the subcutaneous tissues. I then incised some skin under the HemoSplit catheter at the exit site and closed the skin in a horizontal mattress fashion with 3-0 nylons over the HemoSplit catheter. I sutured the hubs of the HemoSplit catheter down to the underlying skin. The Glidewires were removed. No radiologist was present for this procedure. Static fluoroscopic images were obtained and are kept in the PACS system. The surgeon interpretation of the radiographic images is dictated within the body of this operative note. I then flushed out both lumens of the HemoSplit catheter with heparinized saline. Both lumens flushed easily and aspirated dark, nonpulsatile blood. I then topped off both lumens of the HemoSplit catheter with the appropriate amount of concentrated heparin. A sterile dressing was applied. The patient was then conveyed to the post-anesthesia care unit where he was in stable condition. TRANSINT:[id number] Voice Confirmation ID: [id number] DOCUMENT ID: [id number] OPERATIVE REPORT [id number] MARC CHADWICK ROBERT MD CC: [id number] DICTATION DATE: 11/20/161657 BUSINESS ANALYTICS INTERN: 11/21/16 0235 DIS IN 11/20/16 [facility] [address] [place] [address]
--- NOTE | ~2016-11-17 | CN ---
PATIENT NAME:MARC CHADWICK MEDICAL RECORD: [id number] : 49 LOCATION:[facility].CV06 ADMIT DATE: 11/17/16 ACCOUNT: [id number] CONSULTING PHYSICIAN: EMA WALLS MD REFERRING PHYSICIAN: FÁTIMA LEMUS MD DATE OF CONSULTATION: 11/20/2016 CHIEF COMPLAINT: Malfunctioning of tunneled hemodialysis catheter. HISTORY OF PRESENT ILLNESS: The patient has a malfunctioning tunneled hemodialysis catheter. It has poor function. It was not placed at this facility, I am told. I have reviewed the patient's chest x-ray. It appears that the tips are up in the innominate vein. I think he may need a longer hemodialysis catheter placed. The risks, possible complications and alternatives to procedure were explained to the patient. He elects to proceed. ALLERGIES: No known drug allergies. PAST MEDICAL AND SURGICAL HISTORY: Heart disease, high blood pressure, history of appendectomy, history of tonsillectomy, history adenoidectomy, history of multiple heart procedures, carotid stenosis, end-stage renal disease, history of cerebral infarction, history of muscle wasting and atrophy, history of difficulty in walking, history of iron deficiency anemia, hyperlipidemia, and type 2 diabetes mellitus. HOME MEDICATIONS: The last list of home medicines that I have given the patient includes aspirin, atorvastatin, finasteride, Flomax, Imdur, Plavix, sertraline, Toprol XL as well as trazodone. PHYSICAL EXAMINATION: GENERAL: The patient appears chronically ill. He does not appear acutely ill. VITAL SIGNS: Reviewed. HEAD: External ears appear normal. EYES: Extraocular movements are intact. NECK: Trachea is midline. CHEST: No intercostal retractions. PULMONARY: Nonlabored, no stridor. ABDOMEN: No peritonitis. EXTREMITIES: No peripheral cyanosis. INTEGUMENT: No rash, no ulcerations. PSYCHIATRIC: Normal affect. BACK: No thoracic kyphosis. IMPRESSION: Poorly functioning hemodialysis catheter in a patient who is dependent on hemodialysis catheter for hemodialysis. PLAN: The plan will be removal of the malfunctioning hemodialysis catheter and placement of a new one. The patient has not been febrile and has not had an infection and so I think we can probably change the tunneled catheter over a wire. TRANSINT:[id number] Voice Confirmation ID: [id number] DOCUMENT ID: [id number] CONSULT REPORT [id number] MARC CHADWICK ROBERT MD CC: FÁTIMA LEMUS MD and SONIA CRABTREE MD [id number] DICTATION DATE: 11/20/16 1342 ELEMENTARY EDUCATION TEACHER: 11/20/16 2327 DIS IN 11/20/16 [address] [place] [address]
--- NOTE | ~2016-11-17 | OP ---
PATIENT NAME: MARC CHADWICK MEDICAL RECORD: [id number] :49 LOCATION:[facility].CV06 ADMISSION DATE:11/17/16 SURGEON: FENG PHILLIPS MD DATE OF OPERATION: 11/18/2016 SURGEON: Feng Phillips MD ANESTHESIA: General endotracheal, Dr. Sutherland. OPERATION PERFORMED: Right carotid endarterectomy with patch angioplasty. PREOPERATIVE DIAGNOSIS: Severe right internal carotid artery stenosis. POSTOPERATIVE DIAGNOSIS: Severe right internal carotid artery stenosis. INDICATION FOR OPERATION: Severe right internal carotid artery stenosis. FINDINGS AT OPERATION: Severe greater than 90% stenosis of the right internal carotid artery. ESTIMATED BLOOD LOSS: Less than 50 cc. DESCRIPTION OF PROCEDURE: After informed consent, adequate preoperative medication evaluation, the patient was brought to the operating room, placed on the table in the supine position. After induction of general endotracheal anesthesia and application of appropriate monitoring devices, the right neck was prepped and draped in a sterile field, utilizing Betadine scrub, alcohol, and Betadine solution. A Betadine-impregnated drape was also used. An oblique incision made in the skin crease. Dissection carried down the fascia. Hemostasis maintained with electrocautery. The common carotid, internal and external carotid arteries were dissected free of surrounding structures, protecting the neurological structures. The patient was given a calculated dose of heparin; after 3 minutes, clamps were applied. After 2 minutes, no EEG changes. The arteriotomy was made and extended with Elena scissors. Artery underwent endarterectomy sharply. Artery underwent extensive debridement and irrigation. Utilizing a CorMatrix vascular patch, a running 7-0 Prolene suture, the arteriotomy was closed with patch angioplasty technique. All maneuvers to remove trapped air were performed. The clamps were removed sequentially. There were no EEG changes. The patient was given a calculated dose of protamine to reverse the heparin. Hemostasis was assured. A #7 Mayur-Batista drain was left in the depth of wound and brought through the base of the neck. Neck was again irrigated. Instrument count and sponge count were correct times 2. Neck was closed in layers utilizing 3-0 Vicryl on the platysma, 5-0 subcuticular Monocryl on the skin. Sterile dressings were applied. The patient tolerated the procedure well and transferred to the CV ICU in satisfactory condition. TRANSINT:[id number] Voice Confirmation ID: [id number] DOCUMENT ID: [id number] OPERATIVE REPORT [id number] MARC CHADWICK EDWARD MD CC: [id number] DICTATION DATE: 11/18/161548 MACHINE FASTENER: 11/18/16 2306 ADM IN [facility] [address] [id number]
[2016-11-17] MEDS ORDERED: LIPITOR80 MG PO (17:35)
--- NOTE | 2016-11-17 17:46 | NUR ---
RECIVED PER TO ROOM 2122. ADMIT ASSESSMENT DONE PER RN. DENIES NEEDS AT THIS TIME.
[2016-11-17 18:07] VITALS: BMI 29.1
[2016-11-17 19:07] LABS: APTT 29.7 SECONDS (22.8-39.4)
[2016-11-17 19:13] LABS: ALBUMIN 3.2 g/dL (3.4-5.0); ANION GAP 13.3 mmol/L (8-16); BILIRUBIN - TOTAL 0.29 mg/dL (0.2-1.3); CALCIUM 8.2 mg/dL (8.5-10.1); CARBON DIOXIDE 29.8 mmol/L (21.0-32.0); CREATININE - SERUM 3.9 mg/dL (0.6-1.3); POTASSIUM - SERUM 3.1 mmol/L (3.5-5.1); PROTEIN - SERUM 6.4 g/dL (6.4-8.2)
--- NOTE | 2016-11-17 19:45 | NUR ---
US CAROTID DOPPLER STUDY DONE IN PATIENT'S ROOM.
--- NOTE | 2016-11-17 20:00 | NUR ---
DR CENTENO/ANESTHESIOLOGIST UP ON UNIT DOING PRE OP CHECKLIST FOR AM SURGERY.
--- NOTE | 2016-11-17 20:38 | NUR ---
TO RADIOLOGY FOR CHEST XRAY.
--- NOTE | 2016-11-17 20:41 | NUR ---
RETURN FROM RADIOLOGY AND BACK TO BED.
[2016-11-17 20:50] LABS: HEMATOCRIT 37.5 % (42.0-54.0); MCH 29.8 pg (26.0-34.0); MCV 93.1 fL (80.0-100.0); MEAN PLATELET VOLUME 8.1 fL (7.4-10.4); RBC 4.03 10x6/uL (4.20-6.10); RDW 14.3 % (11.5-14.5); WBC 5.5 10x3/uL (4.8-10.8)
[2016-11-17 21:30] VITALS: BP 114/59
--- NOTE | 2016-11-17 23:22 | NUR ---
HS MEDS GIVEN. FSBS 185, HELD LANTUS PATIENT WILL BE NPO FROM MIDNIGHT UNTIL LATE TOMORROW FOR SURGERY.
[2016-11-18] VITALS (27 sets, daily range): BP systolic 93–148; BP diastolic 48–79; Ht 165.1 cm; Wt 75.3 kg
[2016-11-18 06:54] LABS: ANION GAP 13.6 mmol/L (8-16); BASOPHILS 0.2 % (0-2); BILIRUBIN - TOTAL 0.3 mg/dL (0.2-1.3); CALCIUM 8.4 mg/dL (8.5-10.1); CARBON DIOXIDE 27.7 mmol/L (21.0-32.0); EOSINOPHILS 4.7 % (0-7); HEMATOCRIT 35.3 % (42.0-54.0); HEMOGLOBIN 11.1 g/dL (13.5-17.5); IMMATURE GRANULOCYTES 0.2 % (0-5); LYMPHOCYTES 20.7 % (15-50); MCH 29.5 pg (26.0-34.0); MCHC 31.4 g/dL (31.0-37.0); MCV 93.9 fL (80.0-100.0); MEAN PLATELET VOLUME 9.4 fL (7.4-10.4); MONOCYTES 8.7 % (2-11); NEUTROPHILS 65.5 % (40-80); POTASSIUM - SERUM 3.3 mmol/L (3.5-5.1); PROTEIN - SERUM 6.3 g/dL (6.4-8.2); RBC 3.76 10x6/uL (4.20-6.10); RDW 14.2 % (11.5-14.5); WBC 4.7 10x3/uL (4.8-10.8)
[2016-11-18 06:56] LABS: INR 1.01 (0.85-1.17); PROTIME 13.2 SECONDS (11.6-15.0)
[2016-11-18 07:03] LABS: PLATELET COUNT 214 10x3/uL (130-400)
[2016-11-18 07:06] LABS: CREATININE - SERUM 5.1 mg/dL (0.6-1.3)
--- NOTE | 2016-11-18 08:13 | NUR ---
ASSESSMENT DONE. DENIES NEEDS.
--- NOTE | 2016-11-18 08:31 | NUR ---
ASSESSMENT DONE. DENIES NEEDS.
--- NOTE | 2016-11-18 12:01 | NUR ---
TO OR PER BED
--- NOTE | 2016-11-18 16:00 | NUR ---
RECIEVED FROM THE OR VIA BED. PLACED ON THE MONITOR. PT ATTEMPTING TO CLIMB OUT OF BED. URGED TO STAY STILL. COMPLAINING OF HAVING TO "PEE". GAUTHIER CATH INTACT WITH CLEAR YELLOW URINE IN BAG. RT NECK DRSG C-D-I WITH ICE PACK APPLIED. RT SC HEMOSPLIT WITH DRSG C-D-I. GIOVANY DRAIN WITH BULB DEPRESSED WITH BLOODY DRAINAGE IN DRAIN. FLACO/SCD INTACT. SR ON THE MONITOR.
--- NOTE | 2016-11-18 16:35 | NUR ---
COMPLAINING OF BEING NAUSEATED. ZOFRAN 4MG IV GIVEN PER ORDERS. CONTINUING TO COMPLAIN OF NEEDING TO PEE.
--- NOTE | 2016-11-18 16:45 | NUR ---
GAUTHIER CATH REMOVED PER DR PHILLIPS. WILL CONT TO MONITOR.
--- NOTE | 2016-11-18 18:12 | NUR ---
ATTEMPTING TO URINATE IN URINAL. WANTING TO GET UP OUT OF BED. EXPLAINED WHY HE CAN NOT GET UP AND HE SAID IT IS 6AM, REORIENTED TO TIME. WILL CONT TO MONITOR.
--- NOTE | 2016-11-18 19:30 | NUR ---
REPORT REC'D AND CARE ASSUMED, REC'D PT RESTING EYES CLOSED, AWAKENS TO VERBAL STIMULI, ORIENTED X 3, RIGHT NECK DRSG CDI, SLIGHT EDEMA NOTED, RIGHT UPPER CHEST DRSG CDI WITH GIOVANY DRAIN COMPRESSED WITH MINIMAL SANGUINOUS DRAINAGE, RIGHT UPPER CHEST HEMOSPLIT WITH NS @ 5CC/HR AND NITROGLYCERIN @ 8CC/HR OR 0.333MCG/KG/MIN, BP 112/55, NITROGLYCERIN DECREASED TO 0.3MCG/KG/MIN OR 7.2CC/HR, RIGHT RADIAL JESS WITH FLEXION BOARD IN USE, LEVELED AND ZEROED WITH RETURN OF APPROPRIATE WAVEFORM, BILAT TEDS/SCDS, PPP, SR UP X 2, PT DENIES PAIN OR OTHER NEEDS, CALL LIGHT IN REACH.
--- NOTE | 2016-11-18 20:00 | NUR ---
PT UNCOMFORTABLE IN BED, PT ASSISTED TO REPOSITION ONTO RIGHT SIDE SUPPORTED WITH PILLOW, PILLOW BETWEEN KNEES FOR COMFORT, ICE PACK REFILLED AND PLACED TO RIGHT NECK, PT STATES "THAT FEELS MUCH BETTER".
--- NOTE | 2016-11-18 21:20 | NUR ---
EVENING MEDS GIVEN, PT DISORIENTED TO TIME, REORIENTS EASILY, EYE LUBRICANT WASHED OFF PER PT REQUEST, FSBS 184, PHARMACY NOTIFIED OF NEED FOR LANTUS PEN.
--- NOTE | 2016-11-18 22:09 | NUR ---
TARASTUS MAN REC'D FROM PHARMACY, 20 UNITS LANTUS GIVEN TO RIGHT ARM, PT REPOSITIONED ONTO BACK, CONTINUES TO DENY PAIN OR OTHER NEEDS, WILL MONITOR FOR CHANGES.
[2016-11-19] VITALS (49 sets, daily range): BP systolic 90–155; BP diastolic 43–74
--- NOTE | 2016-11-19 | NUR ---
PT ASSISTED TO REPOSITION ONTO LEFT SIDE, ICE PACK REMOVED FROM NECK, PT COMPLAINS OF NECK STARTING TO HURT, RATING "4" ON 0-10 PAIN SCALE, TRAMADOL PROVIDED FOR DISCOMFORT WITH SIPS OF WATER, DENIES NAUSEA OR OTHER NEEDS, SR UP X 2, BED IN LOW POSITION, CALL LIGHT IN REACH.
--- NOTE | 2016-11-19 01:30 | NUR ---
SBP TRENDING UP OVER 140, NITROGLYVERIN RESUMED @ 0.2MCG/KG/MIN, WILL MONITOR CLOSELY FOR CHANGES.
--- NOTE | 2016-11-19 02:25 | NUR ---
PT AWAKE REPOSITIONED UP IN BED FOR COMFORT, VSS, TITRATING NITROGLYCERIN FOR EFFECT, DENIES PAIN.
--- NOTE | 2016-11-19 04:00 | NUR ---
ROUTINE MEDS GIVEN ORDERED, PT RESTING ON LEFT SIDE EYES CLOSED, RESP EVEN AND UNLABORED, VSS.
--- NOTE | 2016-11-19 05:55 | NUR ---
Markos MCDOWELL AT BS, RIGHT UPPER CHEST GIOVANY DRAIN REMOVED WITHOUT DIFFICULTY, PT TOLERATED WELL, PRESSURE HELD, 2X2'S APPLIED AND COVERED WITH TEGADERM, PT ASSISTED TO REPOSITION FOR COMFORT, BP ELEVATED TITRATING NITRO FOR EFFECT.
[2016-11-19 05:58] LABS: BASOPHILS 0.1 % (0-2); EOSINOPHILS 1.3 % (0-7); HEMATOCRIT 32.9 % (42.0-54.0); HEMOGLOBIN 10.5 g/dL (13.5-17.5); IMMATURE GRANULOCYTES 0.3 % (0-5); LYMPHOCYTES 9.5 % (15-50); MCH 29.8 pg (26.0-34.0); MCHC 31.9 g/dL (31.0-37.0); MCV 93.5 fL (80.0-100.0); MEAN PLATELET VOLUME 9.1 fL (7.4-10.4); MONOCYTES 7.4 % (2-11); NEUTROPHILS 81.4 % (40-80); RBC 3.52 10x6/uL (4.20-6.10); RDW 14.4 % (11.5-14.5)
--- NOTE | 2016-11-19 06:00 | NUR ---
NO VISITORS IN AT THIS TIME.
[2016-11-19 06:06] LABS: PLATELET COUNT 158 10x3/uL (130-400); WBC 7.1 10x3/uL (4.8-10.8)
[2016-11-19 06:24] LABS: ANION GAP 15.9 mmol/L (8-16); CALCIUM 8.5 mg/dL (8.5-10.1); CARBON DIOXIDE 25.8 mmol/L (21.0-32.0); PHOSPHOROUS 7.4 mg/dL (2.5-4.9)
[2016-11-19 06:26] LABS: CREATININE - SERUM 6.5 mg/dL (0.6-1.3); POTASSIUM - SERUM 4.7 mmol/L (3.5-5.1)
--- NOTE | 2016-11-19 07:43 | NUR ---
0700 AM ASSESSMENT COMPLETED PER FLOWSHEET. SITTING UP IN BED. ALL VITALS WNL. DENIES PAIN AT THIS TIME. 0730 SITTING UP EATING BREAKFAST IN BED. DR. PHILLIPS AT BEDSIDE...OK TO D/C A LINE AND CVP. OK WITH DIALYSIS FOR TODAY AND THEN TO TRANSFER TO [facility].
--- NOTE | 2016-11-19 08:14 | NUR ---
ALL AM MEDS GIVEN PER JUL, WILL MONITOR BP CLOSELY AND CONTINUE TO WEAN NITROGYLCERIN.
--- NOTE | 2016-11-19 08:43 | NUR ---
R RADIAL JESS D/C, CVP LINE D/C. NITRO RATE DECREASED. ALL VITALS WNL. WILL MONITOR CLOSELY.
--- NOTE | 2016-11-19 09:32 | NUR ---
NUTRITION MONITORING & EVAL CHART REVIEWED. NURSING REPORTS PT WITH GOOD INTAKE RENAL ADA DIET. WILL CONTINUE TO PROVIDE DIET, MONITOR PO INTAKE. RD FOLLOWING
--- NOTE | 2016-11-19 10:12 | NUR ---
PT AT BEDSIDE FOR EVAL. UP TO BEDSIDE CHAIR WITH MINIMAL ASSIST. CASE MANAGEMENT AT BEDSIDE.
--- NOTE | 2016-11-19 10:49 | NUR ---
* Is the patient Alert and Oriented? Yes 0 * How many steps to enter\exit or inside your home? 0 0 * PCP Dr. Marie - [facility] 0 * Pharmacy [facility] 0 * Preadmission Environment Detention Facility 0 * Facility Name [facility] 0 * ADLs Partial Dependent 0 * Partial ADLs (Assistance needed) Ambulation Bathing Toileting 0 * Equipment Cane Glucometer Rolling Walker 0 * List name and contact numbers for known caregivers / representatives who currently or will assist patient after discharge: Brother Farooq Lewis [phone] 0 * Please name any agencies selected above. Design Teacher services through [facility] Agency on Agency [facility] 0 * Additional services required to return to the preadmission environment? No 0 * Can the patient safely return to the preadmission environment? Yes 0 * Has this patient been hospitalized within the prior 30 days at any hospital? No 11/19/2016 10:50 DCP: Discharge Planning Patient Name: MARC LEWIS Admission Status: Elective Accout number: [id number] Admission Date: 11-17-2016 : 1945 Admission Diagnosis: Attending: VITO Current LOS: 2 Anticipated DC Date: 11-20-2016 Planned Disposition: Detention Facility Primary Insurance: MEDICARE A & B Discharge Planning Comments: CM met with patient to assess dc plans/needs. Patient states prior to admission he was in a residential bed at [facility] for physical therapy following a stroke. Prior to that, he was living alone. He goes to dialysis MWF @ 1045 @ [facility] [place] via city transit bus. He has homemaker & personal care services through [facility] on [facility]. He has a walker & cane at home. At dc, he plans to return to [facility] to complete his therapy before returning home. CM will follow & assist as needed. Diamond Die Polisher: Ysabel Tilley
--- NOTE | 2016-11-19 14:35 | NUR ---
1100 RESSESSMENT DOCUMENTED PER FLOWSHEET. ALL VITALS WNL. REMAINS UP IN BEDSIDE CHAIR TO EAT LUNCH. DENIES NEEDS AT THIS TIME.
--- NOTE | 2016-11-19 15:45 | NUR ---
MAYELA WITH DIALYSIS AT BEDSIDE
--- NOTE | 2016-11-19 18:23 | NUR ---
PATIENT C/O CHEST PAIN WHILE ON DIALYSIS. LE NOTIFIED. T/O GIVEN FOR CARDIAC ENZYMES AND EKG. DISCUSSED NEED FOR NEW HEMOSPLIT PER MAYELA WITH DIALYSIS. T/O FOR SURGICAL CONSULT AND NPO AFTER MIDNIGHT.
--- NOTE | 2016-11-19 18:42 | NUR ---
SPOKE WITH BREVING REGARDING CONSULT. T/O TO ADD TO HIS SURGERY SCHEDULE FOR AM AND TO KEEP PATIENT NPO AFTER MIDNIGHT. LEANA, SEPTIC TECHNICIAN CONTACTED REGARDING ADDING TO SCHEDULE. MAYELA WITH DIALYSIS NOTIFIED OF SURGERY.
--- NOTE | 2016-11-19 18:43 | NUR ---
EKG AND CARDIAC LABS COMPLETED.
[2016-11-19 18:58] LABS: CKMB 1.3 U/L (0.0-3.6); CREATINE KINASE 39 UL (21-232); TROPONIN-I 0.025 ng/mL (0.000-0.060)
--- NOTE | 2016-11-19 19:00 | NUR ---
REPORT RECEIVED AND ASSESSMENT COMPLETED. PT IS A CAROTID FROM 11/18. GIOVANY NO LONGER PRESENT IN RIGHT UPPER CHEST. DRSG INTACT ON RIGHT NECK. AND OVER OLD GIOVANY SITE. NO SIGNS OF BLEEDING OR SWELLING. PT IS ABLE TO STICK TONGUE OUT MIDLINE. VSS. WILL MONITOR THROUGHOUT SHIFT
--- NOTE | 2016-11-19 19:19 | NUR ---
Mr. Lewis had bedside hemodialysis today via his right chest hemosplit. Very poor catheter function. Only able to run at 200 blood flow. Noted sutures were no longer in place on catheter. Unable to reverse pull. At thirty minutes left in treatment I returned his blood while able. Large clots forming in venous chamber. Net fluid removed approximately 900 mls. Post vital signs were: B/P: 142/65, HR: 60, Temp: 98.8, Resps: 18. Ran 2 hrs thirty minutes.
--- NOTE | 2016-11-19 21:00 | NUR ---
2100 MEDS GIVE. FSBS IN 'S WILL RECHECK. LANTUS GIVEN ORDERED.
--- NOTE | 2016-11-19 23:00 | NUR ---
NO CHANGES IN PT STATUS AT THIS TIME. RESTING IN ROOM DENIES PAIN. BED IN LOW POSITION VSS. WILL CONTINUE TO MONITOR.
[2016-11-20] VITALS (14 sets, daily range): BP systolic 134–157; BP diastolic 60–81
--- NOTE | 2016-11-20 01:00 | NUR ---
NO CHANGES IN STATUS AT THIS TIME. PT RESTING IN ROOM WATCHING TV. VSS. WILL MONITOR
--- NOTE | 2016-11-20 03:36 | NUR ---
NO CHANGES IN STATUS AT THIS TIME.
--- NOTE | 2016-11-20 05:00 | NUR ---
NO CHANGES IN STATUS AT THIS TIME. PT IN ROOM RESTING. VSS. WILL CONTINUE TO MONITOR THROUGHOUT SHIFT
[2016-11-20 06:39] LABS: BASOPHILS 0.2 % (0-2); EOSINOPHILS 4.8 % (0-7); HEMATOCRIT 34.1 % (42.0-54.0); HEMOGLOBIN 10.9 g/dL (13.5-17.5); IMMATURE GRANULOCYTES 0.2 % (0-5); MCH 29.5 pg (26.0-34.0); MCV 92.4 fL (80.0-100.0); MEAN PLATELET VOLUME 9.3 fL (7.4-10.4); MONOCYTES 9.9 % (2-11); NEUTROPHILS 71.9 % (40-80); PLATELET COUNT 164 10x3/uL (130-400); RBC 3.69 10x6/uL (4.20-6.10); RDW 14.2 % (11.5-14.5); WBC 6.5 10x3/uL (4.8-10.8)
[2016-11-20 06:51] LABS: ANION GAP 14.5 mmol/L (8-16); CALCIUM 8.5 mg/dL (8.5-10.1); CARBON DIOXIDE 27.4 mmol/L (21.0-32.0); CREATININE - SERUM 5.8 mg/dL (0.6-1.3); PHOSPHOROUS 6.4 mg/dL (2.5-4.9)
[2016-11-20 06:55] LABS: POTASSIUM - SERUM 3.9 mmol/L (3.5-5.1)
--- NOTE | 2016-11-20 07:30 | NUR ---
RECEIVED PT FOR CARE. PT RESTING IN BED WITH EYES OPEN. CALL LIGHT WITHIN REACH. ASSESSMENT COMPLETED.
--- NOTE | 2016-11-20 07:45 | NUR ---
PT UP TO CHAIR WITH MINIMAL ASSISTANCE. TOLERATED WELL. AMBULATED TO THE BATHROOM. VOIDED WITHOUT DIFFICULTY. BACK TO CHAIR AND ON MONITORS. CALL LIGHT WITHIN REACH.
--- NOTE | 2016-11-20 10:15 | NUR ---
PT BACK TO BED. LINENS CHANGED. VSS AT THIS TIME.
--- NOTE | 2016-11-20 12:08 | NUR ---
CALLED AND SPOKE WITH PT'S EMERGENCY CONTACT MR. PLEITEZ. UPDATED HIM ON PLAN TO D/C BACK HOME TO [facility] TODAY AND ALSO LET HIM KNOW OF THE SCHEDULED SURGERY TODAY. HE VOICED UNDERSTANDING.
--- NOTE | 2016-11-20 12:47 | NUR ---
PT TO OR BY BED WITH OR TEAM.
--- NOTE | 2016-11-20 14:00 | NUR ---
PT BACK FROM OR. PLACED ON ICU MONITORS. RIGHT HEMOSPLIT INTACT. SOME OOZING NOTED AT INSERTION SITE.
--- NOTE | 2016-11-20 14:59 | NUR ---
DEEDEE GAXIOLA RN NOTIFIED OF PT'S DISCHARGE PLAN. DR. GROSSMAN NOTIFIED OF PT'S DISCHARGE PLAN. RIGHT UPPER CHEST HEMASPLIT DRESSING CHANGED BY OR NURSE. NO NEW BLEEDING NOTED. DRESSING INTACT.
--- NOTE | 2016-11-20 15:01 | NUR ---
11/20/2016 14:55 DCP: Discharge Planning Patient Name: MARC CHADWICK Encounter No: [id number] : 1945 Primary Insurance: MEDICARE A & B Anticipated DC Date: 11-20-2016 Planned Disposition: Snf Facility External Planned Provider: [facility] DCP follow-up note: DC order rec'd. Patient [place] [facility] bed at [facility]. Patient in agreement with discharge plan. Updated orders and requested information faxed to SNF. Patient\family notified of anticipated dc time. Patient will be transported by facility van around 1600. Nursing to call report to [phone]. Ysabel Tilley
--- NOTE | 2016-11-20 15:32 | NUR ---
REPORT CALLED TO RICHELLE AT [facility] [phone]. WILL SEND VAN FOR PICKUP
--- NOTE | 2016-11-20 16:15 | NUR ---
PT TAKEN DOWN BY PERSONAL WHEELCHAIR WITH EMPLOYEE FROM THE [employer]. ALL PAPERWORK IN HAND. DENTURES UPPER AND LOWER WITH PT. REPORTS THAT HE HAS ALL BELONGINGS.
== END 2016-11-20 16:15 | DRG 37 ==
LOC: D.CVICU 16:05 → D.SDCHOLD 16:05 → D.M2 16:05 → D.SDCHOLD 11-18 12:00 → D.CVICU 11-18 15:42
PROVIDERS: Internal Medicine; Internal Medicine Cardiovascular Disease; Internal Medicine Nephrology; ADMIT Internal Medicine Nephrology
PROC: 03UK0KZ Supplement Right Internal Carotid Artery with Nonautologous Tissue Substitute, Open Approach (ICD-10-PCS; 2016-11-18)
PROC: 03CK0ZZ Extirpation of Matter from Right Internal Carotid Artery, Open Approach (ICD-10-PCS; principal; 2016-11-18 12:00)
PROC: 02PY33Z Removal of Infusion Device from Great Vessel, Percutaneous Approach (ICD-10-PCS; 2016-11-20)
PROC: 02HV33Z Insertion of Infusion Device into Superior Vena Cava, Percutaneous Approach (ICD-10-PCS; 2016-11-20)
PROC: B5181ZA Fluoroscopy of Superior Vena Cava using Low Osmolar Contrast, Guidance (ICD-10-PCS; 2016-11-20)
DX: I65.21 Occlusion and stenosis of right carotid artery (principal); N18.6 End stage renal disease; N17.9 Acute kidney failure, unspecified; I12.0 Hypertensive chronic kidney disease with stage 5 chronic kidney disease or end stage renal disease; Z86.73 Personal history of transient ischemic attack (TIA), and cerebral infarction without residual deficits; D63.1 Anemia in chronic kidney disease; E11.22 Type 2 diabetes mellitus with diabetic chronic kidney disease; Z99.2 Dependence on renal dialysis

== ENCOUNTER 2017-03-03 16:03 | Inpatient (IN) | payer MEDICARE ==
[2017-03-03 16:31] LABS: BASOPHILS 0.4 % (0-2); EOSINOPHILS 4.5 % (0-7); HEMATOCRIT 31.9 % (42.0-54.0); HEMOGLOBIN 10.1 g/dL (13.5-17.5); IMMATURE GRANULOCYTES 0.6 % (0-5); LYMPHOCYTES 18.1 % (15-50); MCH 30.1 pg (26.0-34.0); MCHC 31.7 g/dL (31.0-37.0); MCV 95.2 fL (80.0-100.0); MEAN PLATELET VOLUME 9.5 fL (7.4-10.4); MONOCYTES 8.1 % (2-11); NEUTROPHILS 68.3 % (40-80); PLATELET COUNT 133 10x3/uL (130-400); RBC 3.35 10x6/uL (4.20-6.10); RDW 17.4 % (11.5-14.5); WBC 4.9 10x3/uL (4.8-10.8)
[2017-03-03 17:19] LABS: ALBUMIN 3.2 g/dL (3.4-5.0); ANION GAP 18.1 mmol/L (8-16); BILIRUBIN - TOTAL 0.32 mg/dL (0.2-1.3); CALCIUM 8.8 mg/dL (8.5-10.1); CARBON DIOXIDE 24.6 mmol/L (21.0-32.0); CREATININE - SERUM 7.2 mg/dL (0.6-1.3); POTASSIUM - SERUM 5.7 mmol/L (3.5-5.1); PROTEIN - SERUM 6.4 g/dL (6.4-8.2)
--- NOTE | 2017-03-03 23:38 | NUR ---
REPORT RECEIVED FROM TONYA BRYANT IN ER. PT TO TRANSFER TO ROOM 2137. PT BLOOD SUGAR IS NOW DOWN TO 104 REPORTED BY TONYA. 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 PT HAS A 20G TO RIGHT ARM AND A HEMOSPLIT DIALYSIS ACCESS ON CHEST. WILL ASSESS PT WHEN ARRIVE TO ROOM 2137
[2017-03-04] VITALS: BP 137/69
--- NOTE | 2017-03-04 00:33 | NUR ---
PT ARRIVE TO ROOM 2136. PT AAO. VERY [place]. PT HAS A HEMASPLIT TO RIGHT CHEST WITH ONLY TAPE AND GAUZE A DRSG. AREA CLEANED AND DRSG APPLIED. PT HAS PACEMAKER LEFT CHEST. TELEMETRY APPLIED ORDERED. PT IS UNSURE OF MED LIST. PT UNSURE LAST DOSES AND MG. PT HAS A LEAN TO THE LEFT WHEN STANDING TO GET WT. 176.0. PT DENIES ANY NEEDS. NO S/S OF DISTRESS. WILL CPOC
[2017-03-04 02:42] VITALS: BP 137/69; BMI 29.3
[2017-03-04 04:00] VITALS: BP 127/67
--- NOTE | 2017-03-04 06:12 | NUR ---
PT FSBS IS 157. NO ORDERS IN REGARDING BLOOD SUGARS, NO MEDS IN AT ALL. WILL WAIT FOR DL TO COME IN SINCE IT IS 157. PT DENIES ANY NEEDS. BED LOW AND CALL LIGHT IN REACH. WILL CPOC
--- NOTE | 2017-03-04 06:38 | NUR ---
PT UP TO RESTROOM. X1 ASSIST. BALANCE UNSTEADY. PT HAD A BM. PT DID NOT WAIT FOR ASSISTANCE BACK TO BED. TOLD PT THE RISK, SLIP FREE SOCKS ON, BED LOW AND CALL LIGHT IN REACH. WILL COMMUNICATE WITH NEXT SHIFT REGARDING BRANDON ALARM. PT DENIES ANY NEEDS. NO S/S OF DISTRESS. WILL CPOC
--- NOTE | 2017-03-04 07:18 | NUR ---
AM ROUNDS- PT IN BED, WITH EYES CLOSED, AROUSES EASILY. PT DENIES ANY NEEDS AT THIS TIME. RESP EVEN AND REGULAR. LT FA IV SL. BED LOW AND WHEELS LOCKED, BEDSIDE RAILS X2, CALL LIGHT IN REACH, NAD NOTED, WILL CONTINUE TO MONITOR.
[2017-03-04 08:12] LABS: APPEARANCE HAZY (CLEAR); BILIRUBIN NEGATIVE (NEGATIVE); COLOR YELLOW (YELLOW); GLUCOSE 500 mg/dL (NEGATIVE); KETONE NEGATIVE (NEGATIVE); NITRITE NEGATIVE (NEGATIVE); PROTEIN 2+ mg/dL (NEGATIVE); SPECIFIC GRAVITY 1.015 (1.005-1.020); UROBILINOGEN NORMAL (NORMAL)
[2017-03-04 08:13] LABS: BACTERIA MODERATE /hpf (NONE SEEN); EPITHELIAL CELLS 0-5 /hpf (0-5); MUCUS <1+ /lpf (NONE SEEN); RED CELLS - URINE 0-5 /hpf (0-5)
[2017-03-04 08:16] VITALS: BP 146/67
--- NOTE | 2017-03-04 08:53 | NUR ---
AM MEDS GIVEN AT THIS TIME. PT UP TO SIDE OF BED, EATING BREAKFAST, DENIES ANY NEEDS AT THIS TIME. CALL LIGHT IN REACH, NAD NOTED, WILL CONTINUE TO MONITOR.
--- NOTE | 2017-03-04 10:40 | NUR ---
PT TRANSFERED TO DIALYSIS VIA BED, NAD NOTED.
[2017-03-04 10:56] VITALS: BMI 29.2
--- NOTE | 2017-03-04 14:22 | NUR ---
PT TRANSFERED BACK TO ROOM 2137, VIA BED, NAD NOTED, PT DENIES ANY NEEDS AT THIS TIME. CALL LIGHT IN REACH, NAD NOTED, WILL CONTINUE TO MONITOR.
[2017-03-04] MEDS ORDERED: LIPITOR40 MG PO (14:29)
[2017-03-04] MEDS ORDERED: RENVELA800 MG PO (14:32)
--- NOTE | 2017-03-04 15:50 | NUR ---
MEDS GIVEN ORDERED, EXPLAINED RATIONAL FOR SCD'S TO PT, PT AGREED TO WEAR SCD. PLACED SCD'S TO BILAT LEGS. PT REFUSED TO HAVE BRANDON MAT PLACED ON BED,SO INSTRUCTED PT TO CALL FOR ASSISTANCE NOT TO GET UP ON HIS OWN. PT VERBALIZED UNDERSTANDING REGARDING INSTRUCTIONS. PT DENIES ANY NEEDS AT THIS TIME. CALL LIGHT IN REACH, NAD NOTED, WILL CONTINUE TO MONITOR.
[2017-03-04 16:00] VITALS: BP 131/64
--- NOTE | 2017-03-04 19:37 | NUR ---
PT HAS STAFF IN ROOM IN THE PROCESS OF IMAGING AN AREA. PT LAYING ON RIGHT SIDE TOWARD MACHINE. WILL CHECK ON PT AGAIN AFTER DONE WITH PROCEDURE. PT IS NOT IN DISTRESS. WILL CPOC
[2017-03-04 20:00] VITALS: BP 95/52
--- NOTE | 2017-03-04 20:10 | NUR ---
PT UP TO RESTROOM,VOIDED A MODERATE AMOUNT. PT MORE BALANCED THIS TIME. GAIT STEADY. NO ASSISTANCE. PT STATES HE IS HUNGRY AND WANTS A SANDWINCH. PT RECEIVED A SANDWINCH. PT DENIES ANY OTHER NEEDS. NO S/S OF DISTRESS. WILL CPOC
[2017-03-05 04:00] VITALS: BP 111/57
[2017-03-05 05:16] LABS: BASOPHILS 0.2 % (0-2); EOSINOPHILS 3.9 % (0-7); HEMATOCRIT 32.8 % (42.0-54.0); HEMOGLOBIN 10.6 g/dL (13.5-17.5); IMMATURE GRANULOCYTES 0.7 % (0-5); LYMPHOCYTES 21.2 % (15-50); MCH 29.9 pg (26.0-34.0); MCHC 32.3 g/dL (31.0-37.0); MEAN PLATELET VOLUME 9.5 fL (7.4-10.4); MONOCYTES 8.6 % (2-11); NEUTROPHILS 65.4 % (40-80); PLATELET COUNT 153 10x3/uL (130-400); RBC 3.54 10x6/uL (4.20-6.10); RDW 17.5 % (11.5-14.5); WBC 5.6 10x3/uL (4.8-10.8)
[2017-03-05 05:34] LABS: ALBUMIN 3.2 g/dL (3.4-5.0); ANION GAP 15.8 mmol/L (8-16); BILIRUBIN - TOTAL 0.4 mg/dL (0.2-1.3); CALCIUM 8.7 mg/dL (8.5-10.1); CARBON DIOXIDE 30.2 mmol/L (21.0-32.0); CREATININE - SERUM 6.8 mg/dL (0.6-1.3); PHOSPHOROUS 7.9 mg/dL (2.5-4.9); PROTEIN - SERUM 5.9 g/dL (6.4-8.2)
[2017-03-05 05:35] LABS: MCV 92.7 fL (80.0-100.0)
--- NOTE | 2017-03-05 06:26 | NUR ---
PT RESTING IN BED. FSBS IS 224 4 UNITS GIVEN. PT OFFERED GRAMCRACKERS AND MILK. PT DENIES ANY NEEDS. PT HAS NO S/S OF DISTRESS. WILL CPOC
--- NOTE | 2017-03-05 07:30 | NUR ---
REPORT RECIEVED. RR EVEN AND UNLABORED, PT DENIES NEEDS AT THIS TIME. PT LETHARGIC THIS MORNING. WILL CTM.
[2017-03-05 08:00] VITALS: BP 163/73
[2017-03-05 12:00] VITALS: BP 108/69
[2017-03-05 16:00] VITALS: BP 160/91
--- NOTE | 2017-03-05 17:53 | NUR ---
PT RESTING QUIELTY, RR EVEN AND UNLABORED. PT HAS DIFFICUTLY RECALLING EVENTS THROUGHOUT TODAY. SHORT TERM MEMORY NOT INTACT. WILL GIVE REPORT ON PT CONDITION FOR THE DAY.
--- NOTE | 2017-03-05 19:10 | NUR ---
PT RESTING IN BED. ASSISTED TO BATHROOM PT LEANS HARD TO RIGHT AND HAS BALANCE ISSUES. PT VERBALIZES UNDERSTANDING WHEN TALKING ABOUT NOT GETTING UP UNLESS HE HAS ASSIST. PT DENIES ANY NEEDS. WILL CPOC
--- NOTE | 2017-03-06 00:03 | NUR ---
PT ASLEEP. RESSPIRATIONS EVEN AND UNLABORED. BED LOW AND CALL LIGHT IN REACH. BRANDON ALARM ON AND ACTIVE. WILL CPOC
[2017-03-06 04:00] VITALS: BP 122/66
[2017-03-06 05:38] LABS: BASOPHILS 0.2 % (0-2); EOSINOPHILS 5.3 % (0-7); HEMATOCRIT 32.5 % (42.0-54.0); HEMOGLOBIN 10.8 g/dL (13.5-17.5); IMMATURE GRANULOCYTES 0.3 % (0-5); LYMPHOCYTES 16.5 % (15-50); MCH 30.5 pg (26.0-34.0); MCHC 33.2 g/dL (31.0-37.0); MCV 91.8 fL (80.0-100.0); MEAN PLATELET VOLUME 9.5 fL (7.4-10.4); MONOCYTES 8.5 % (2-11); NEUTROPHILS 69.2 % (40-80); PLATELET COUNT 162 10x3/uL (130-400); RBC 3.54 10x6/uL (4.20-6.10); RDW 17.2 % (11.5-14.5); WBC 6.3 10x3/uL (4.8-10.8)
[2017-03-06 06:03] LABS: ANION GAP 18.3 mmol/L (8-16); CALCIUM 8.7 mg/dL (8.5-10.1); CARBON DIOXIDE 24.7 mmol/L (21.0-32.0)
--- NOTE | 2017-03-06 07:19 | NUR ---
PT DENIES ANY NEEDS. TECH IN ROOM GETTING VITALS. PT HAS NO S/S OF DISTRESS. WILL CPOC
--- NOTE | 2017-03-06 07:30 | NUR ---
REPORT RECIVED. RR EVEN AND UNLABORED, PT DENIES NEEDS AT THIS TIME. PT RESTING QUIETLY, WILL CTM.
[2017-03-06 08:00] VITALS: BP 109/79
[2017-03-06 08:56] VITALS: BP 143/76
[2017-03-06 08:57] VITALS: BP 134/63; BP 142/76
--- NOTE | 2017-03-06 09:20 | NUR ---
PT TRANSPORTED TO DIALYSIS BY BED X2 ASSIST.
--- NOTE | 2017-03-06 13:30 | NUR ---
PT RECIEVED TO ROOM FROM DIALYSIS. RR EVEN AND UNLABORED. PT RESTING QUIELTY. WILL CTM.
[2017-03-06 16:00] VITALS: BP 137/68
--- NOTE | 2017-03-06 16:02 | NUR ---
Dialysis Coordinator: YAYA Baez Dialysis Thu/Thu/Thu @ 10:00am. EMILY HAMMONDS.
--- NOTE | 2017-03-06 16:18 | NUR ---
Patient Name: MARC CHADWICK Admission Status: ER Accout number: [id number] Admission Date: 03-04-2017 : 1945 Admission Diagnosis: Attending: Mehdi Dan Current LOS: 2 Anticipated DC Date: Planned Disposition: Snf Facility Primary Insurance: MEDICARE A & B PLANNED EXTERNAL PROVIDER: [facility], MEDICARE REHAB BED Discharge Planning Comments: * Is the patient Alert and Oriented? Yes 0 * How many steps to enter\exit or inside your home? NONE 0 * PCP DR. KELLY, [facility] 0 * Pharmacy [place] [facility] 0 * Preadmission Environment Home Alone 0 * ADLs Independent 0 * Equipment Cane Walker 0 * Other Equipment [place] - MEDICAL EQUIPMENT PROVIDER PREFERENCE 0 * List name and contact numbers for known caregivers / representatives who currently or will assist patient after discharge: JESUS CHADWICK, BROTHER, 0 * Community resources currently utilized Home Health Other 0 * Please name any agencies selected above. OUTPATIENT DIALYSIS, [facility], M/W/F, 1045AM, INTERCITY TRANSIT BUS HOMEMAKER THROUGH COUNTS INCLUDE 234 BEDS AT THE [facility]- NURSING AND PHYSICAL THERAPY 0 * Additional services required to return to the preadmission environment? Yes * Can the patient safely return to the preadmission environment? No 0 * Has this patient been hospitalized within the prior 30 days at any hospital? No 0 CM MET WITH PT IN ROOM TO DISCUSS DISCHARGE PLANNING AND NEEDS. PT REPORTS LIVING AT HOME INDEPENDENTLY AND ALONE. PT HAS ALL NEEDED MEDICAL EQUIPMENT AT HOME FROM THE [place]. PT HAS HOME HEALTH WITH [facility] AND A HOMEMAKER FROM COUNTS INCLUDE 234 BEDS AT THE [facility] ON [address]. PT USES [employer] TRANSIT TO GET TO AND FROM DIALYSIS ON MWF SCHEDULE AT [facility]. CM DISCUSSED AVAILABILITY OF HOME HEALTH, REHAB SERVICES AND MEDICAL EQUIPMENT. PT REPORTS HE JUST GOT OUT OF THE [facility] RECENTLY AND NEEDS REHAB AND MAY NEED RETAIL ADMINISTRATIVE ASSISTANT CARE. HE IS SEEKING A NEIGHBOR TO TAKE HIS TWO DOGS TO CARE FOR. PT ASKED FOR REFERRAL BACK TO THE [facility] FOR REHAB INITIALLY. PT IS AWARE THAT THE [place] HAS CONTRACT WITH THE [facility]. CM DISCUSSED TRANSFER TO [place] [facility]. PT DECLINED, REPORTS HE IS AWARE HE HAS A COPAY HE OWES A LOT OF MONEY TO THE HOSPITAL AND WANTS SOMEONE TO HELP HIM WITH MEDICAID APPLICATION. CHOICE TO REMAIN AT HOSPITAL AND ACKNOWLEDGEMENT OF FIANCIAL RESPONSIBILITY SIGNED, FAXED TO ADMISSIONS. IMPORTANT MESSAGE FROM MEDICARE PROVIDED AND EXPLAINED. CHOICE LETTER FOR THE [facility] SIGNED. CM CALLED [place], CLINICAL LIAISON FOR THE [facility], , ASKED FOR ASSESSMENT FOR REHAB ADMISSION. CM FAXED REFERRAL TO THE [facility] VIA [place] AT [phone]. PT WILL REQUIRE PHYSICAL THERAPY ASSESSSMENT FOR REHAB SERVICES; ONCE COMPLETED, CM WILL NEED TO FAX TO THE [facility] FOR REHAB CONSIDERATION. Auto Refinisher: Elie Broderick
--- NOTE | 2017-03-06 18:05 | NUR ---
UNABLE TO DO MRI DUE TO PATIENT HAVING A PACEMAKER
--- NOTE | 2017-03-06 18:18 | NUR ---
PT RESTING QUILETY, RR EVEN AND UNLABORED. PT DENIES NEEDS AT THIS TIME. WILL GIVE REPORT ON PT CONDTION FOR THE DAY.
--- NOTE | 2017-03-06 20:10 | NUR ---
PT HELPED TO CHAIR. X1 ASSIST. PT POSY ALARM WAS ACTIVE PT DID NOT TRY AND GET OOB. PT WAITED UNTIL ASSISTANCE CAME TO ASSIST HIM. PT NOW IN CHAIR. CALL LIGHT IN REACH. PT DENIES ANY NEEDS AT THIS TIME
[2017-03-07] VITALS (7 sets, daily range): BP systolic 83–150; BP diastolic 47–77
--- NOTE | 2017-03-07 00:06 | NUR ---
PT SITTING ON SIDE OF BED. EATING A SNACK. FSBS 203 4 UNITS GIVEN. PT DENIES ANY NEEDS. BED IS LOW CALL LIGHT IN REACH. BRANDON ALARM ON AND ACTIVE. PT HAS NO S/S OF DISTRESS. WILL CPOC
--- NOTE | 2017-03-07 00:15 | NUR ---
PT LAYING DOWN IN BED. GETTING READY FOR SLEEP. PUT ON PT SCD'S BILATERALY LOWER EXTREM. PT BED LOW. CALL LIGHT IN REACH. BRANDON ALARM ON AND ACTIVE. PT WILL CALL FOR ASSIST WHEN NEEDED. PT DENIES ANY NEEDS. NO S/S OF DISTRESS. WILL CPOC
--- NOTE | 2017-03-07 00:20 | NUR ---
PT RIGHT FOREARM IV WOULD NOT FLUSH. LEAKED AND PAINFUL. REMOVED IV. CATH INTACT. DRSG APPLIED
--- NOTE | 2017-03-07 04:43 | NUR ---
PT ASKING TO GET UP TO CHAIR. PT SAYING HE FEELS WEAK. GOT PT ORTHOSTATIC BLOOD PRESSURES PRIOR TO HELPING PT UP. SUPINE 94/47 HR 68 SITTING 102/54 HR 69 STANDING 83/37 HR 68 PT PALE. STATES HE IS DIZZY. PT BALANCE PROBLEMS WHEN AMBULATING. TOOK PT TO BATHROOM X1 ASSIST. PT DENIES ANY NEEDS. SITTING UP IN CHAIR. WILL CPOC
--- NOTE | 2017-03-07 06:45 | NUR ---
PT LAYING IN BED. STILL STATING HE FEELS WEAK. PT DENIES ANY NEEDS. NO S/S OF DISTRESS. WILL CPOC
[2017-03-07 07:15] LABS: BASOPHILS 0.1 % (0-2); EOSINOPHILS 5.2 % (0-7); HEMATOCRIT 32.5 % (42.0-54.0); HEMOGLOBIN 10.7 g/dL (13.5-17.5); IMMATURE GRANULOCYTES 0.6 % (0-5); LYMPHOCYTES 19.4 % (15-50); MCH 30.5 pg (26.0-34.0); MCHC 32.9 g/dL (31.0-37.0); MCV 92.6 fL (80.0-100.0); MEAN PLATELET VOLUME 9.2 fL (7.4-10.4); MONOCYTES 9.5 % (2-11); NEUTROPHILS 65.2 % (40-80); PLATELET COUNT 148 10x3/uL (130-400); RBC 3.51 10x6/uL (4.20-6.10); RDW 18.3 % (11.5-14.5); WBC 6.7 10x3/uL (4.8-10.8)
[2017-03-07 07:33] LABS: ANION GAP 16.7 mmol/L (8-16); CALCIUM 8.7 mg/dL (8.5-10.1); CARBON DIOXIDE 28.3 mmol/L (21.0-32.0); CREATININE - SERUM 6.3 mg/dL (0.6-1.3); PHOSPHOROUS 6.7 mg/dL (2.5-4.9)
--- NOTE | 2017-03-07 09:29 | NUR ---
AM ROUNDS - PT IN BED AND APPEARS TO BE SLEEPING WITH EQUAL AND NON LABORED BREATHING. MONITOR SHOWING SR, HR 60. YELLOW BAND ON. NON SKID SOCKS ON. SCDS ARE OFF AT THIS TIME. BED AT LOWEST POSITION. CALL BLOOM IN USE/REACH. SIDE RAILS UP X2. WILL CONTINUE TO MONITOR
--- NOTE | 2017-03-07 14:59 | NUR ---
PT IN BED AND APPEARS TO BE SLEEPING AT THIS TIME WITH EQUAL AND NON LABORED BREATHING. WILL CONTINUE TO MONITOR
[2017-03-08] VITALS (7 sets, daily range): BP systolic 103–160; BP diastolic 51–77
--- NOTE | 2017-03-08 06:35 | NUR ---
BERE BP'S LYING 103/51 HR 78 SITTING 119/69 HR 69 STANDING 125/52 HR 73
[2017-03-08 06:49] LABS: BASOPHILS 0.3 % (0-2); EOSINOPHILS 4.9 % (0-7); HEMATOCRIT 31.5 % (42.0-54.0); HEMOGLOBIN 10.4 g/dL (13.5-17.5); IMMATURE GRANULOCYTES 0.5 % (0-5); LYMPHOCYTES 21.3 % (15-50); MCH 30.3 pg (26.0-34.0); MCV 91.8 fL (80.0-100.0); MEAN PLATELET VOLUME 9.4 fL (7.4-10.4); MONOCYTES 9.1 % (2-11); NEUTROPHILS 63.9 % (40-80); PLATELET COUNT 138 10x3/uL (130-400); RBC 3.43 10x6/uL (4.20-6.10); RDW 18.3 % (11.5-14.5); WBC 6.2 10x3/uL (4.8-10.8)
[2017-03-08 07:05] LABS: ANION GAP 16.8 mmol/L (8-16); CALCIUM 8.7 mg/dL (8.5-10.1); CARBON DIOXIDE 24.3 mmol/L (21.0-32.0); PHOSPHOROUS 8.2 mg/dL (2.5-4.9); POTASSIUM - SERUM 4.1 mmol/L (3.5-5.1)
[2017-03-08 07:09] LABS: CREATININE - SERUM 8.1 mg/dL (0.6-1.3)
--- NOTE | 2017-03-08 07:21 | NUR ---
AM ROUNDS - PT IN BED AND APPEARS TO BE SLEEPING WITH EQUAL AND NON LABORED BREATHING. MONITOR SHOWING SR, HR 60, PACE. RIGHT SUBCLAV HEMOSLIT, DIALYSIS M-W-. PT REFUSES SCD. UNSTEADY GAIT, WALKER. HARD OF HEARING. BED AT LOWEST POSITION. CALL BLOOM IN USE/REACH. SIDE RAILS UP X2. WILL CONTINUE TO MONITOR
--- NOTE | 2017-03-08 09:01 | NUR ---
ORTHOSTATIC V/S LATING 122/70 SITTING 124/62 STANDING 126/63
--- NOTE | 2017-03-08 14:54 | NUR ---
PT IN BED AND AWAKE AT THIS TIME TALKING ON HIS CELL PHONE. BED AT LOWEST POSITION. CALL BLOOM IN USE/REACH. SIDE RAILS UP X2. NO NEEDS. WILL CONTINUE TO MONITOR
--- NOTE | 2017-03-08 19:15 | NUR ---
RECIEVED SHIFT REPORT. PT IS LYING IN BED. ALERT AND ORIENTED AND ABLE TO VERBALIZE NEEDS. NO IV ACCESS AT THIS TIME. PT IS AMBULATORY WITH ASSISTANCE. PT DENIES ANY PAIN AT THIS TIME. PT REFUSES SCD'S AT THIS TIME. NO NEEDS ARE VERBALIZED AT THIS TIME. WILL CONTINUE TO MONITOR. SIDE RAILS ARE UP X 2. BED IS IN LOWEST POSITION. BRANDON MAT IS ON FOR SAFETY. CALL LIGHT IS WITHIN REACH.
--- NOTE | 2017-03-08 20:00 | NUR ---
ORTHOSTATIC B/P. LYIN/77, HR=64 LEFT ARM SITTIN/76, HR=66 LEFT ARM STANDIN/59, HR=67 LEFT ARM
--- NOTE | 2017-03-08 20:37 | NUR ---
SHIFT ASSESSMENT COMPLETED. NIGHT MEDS GIVEN WITH NO PROBLEMS. PT RECIEVED NO INSULIN PER SLIDING SCALE FOR GGKM=542. SCHEDULED LANTUS ADMINISTERED PER ORDER. SNACK PROVIDED. NO NEEDS VOICED. WILL MONITOR. SIDE RAILS X 2. BED LOW. BRANDON ON. CALL LIGHT IN REACH.
[2017-03-09] VITALS (9 sets, daily range): BP systolic 109–153; BP diastolic 56–75
[2017-03-09 05:13] LABS: BASOPHILS 0.2 % (0-2); EOSINOPHILS 5.1 % (0-7); HEMATOCRIT 31.8 % (42.0-54.0); HEMOGLOBIN 10.4 g/dL (13.5-17.5); IMMATURE GRANULOCYTES 0.3 % (0-5); LYMPHOCYTES 20.1 % (15-50); MCH 30.1 pg (26.0-34.0); MCHC 32.7 g/dL (31.0-37.0); MCV 91.9 fL (80.0-100.0); MEAN PLATELET VOLUME 8.6 fL (7.4-10.4); MONOCYTES 7.2 % (2-11); NEUTROPHILS 67.1 % (40-80); PLATELET COUNT 131 10x3/uL (130-400); RBC 3.46 10x6/uL (4.20-6.10); RDW 18.7 % (11.5-14.5); WBC 6.4 10x3/uL (4.8-10.8)
[2017-03-09 05:25] LABS: ANION GAP 20.2 mmol/L (8-16); CALCIUM 8.2 mg/dL (8.5-10.1); CARBON DIOXIDE 23.3 mmol/L (21.0-32.0); POTASSIUM - SERUM 4.5 mmol/L (3.5-5.1)
--- NOTE | 2017-03-09 07:09 | NUR ---
AM ROUNDS- PT IN BED, WITH EYES CLOSE, EASILY AROUSES. RESP EVEN AND UNLABORED, BED LOW AND WHEELS LOCKED, BEDSIDE RAILS X2, CALL LIGHT IN REACH, BRANDON MAT IN PLACE, NAD NOTED, WILL CONTINUE TO MONITOR.
--- NOTE | 2017-03-09 08:53 | NUR ---
AM MEDS GIVEN, PT IN BED, DENIES ANY NEEDS AT THIS TIME. BRANDON MAT IN PLACE, CALL LIGHT IN REACH, NAD NOTED, WILL CONTINUE TO MONITOR.
--- NOTE | 2017-03-09 10:40 | NUR ---
PT TRANSFERED TO DIALYSIS VIA BED, NAD NOTED.
--- NOTE | 2017-03-09 13:49 | NUR ---
Nutrition Follow Up: Pt was in HD at the time of RD visit. Pt is eating 97% meal avg on a renal ADA diet. Wt loss noted. +BM 03/08/17. Meds and labs reviewed. Rec continue current diet. RD following.
--- NOTE | 2017-03-09 16:36 | NUR ---
Rehab Note- Acute Rehab Prescreen order received. The patient has an appropriate rehab diagnosis. Will plan on an acute inpatient rehab stay wwhen the patient is edically stable and ready for discharge from the acute hospital. Will follow at this time. Thank you for this referral! Amparo Berumen RN Clinical Liaison, [facility] Rehab
--- NOTE | 2017-03-09 16:48 | NUR ---
Patient Name: MARC CHADWICK Encounter No: [id number] : 1945 Primary Insurance: MEDICARE A & B Anticipated DC Date: Planned Disposition: Half-Way Facility External Planned Provider: [facility], MEDICARE REHAB BED DCP follow-up note: CM SPOKE TO [facility], CLINICAL LIAISON FOR [facility], , [facility] WILL ACCEPT PT FOR REHAB AT DISCHARGE. CM NOTIFIED PT IN ROOM WHO IS IN AGREEMENT WITH DISCHARGE TO REHAB AT THE [facility]. CM RECEIVED ORDER FOR INPATIENT REHAB PRESCREENING. CM SPOKE TO PT AND DISCUSSED INPATIENT REHAB LOCATIONS AND PROVIDERS. PT IS NOT SURE WHAT IS BEST FOR HIM AND REPORTS THEY BOTH SOUND GOOD TO HIM HE IS NOT ABLE TO GO HOME NOW. PT WOULD LIKE TO STAY AT [place] IF INPATIENT REHAB WILL ACCEPT HIM. FOR DISCHARGE TO THE [facility], FAX DISCHARGE INFORMATION TO THE [facility] AT [phone]; NURSE REPORT TO BE CALLED TO THE [facility] AT [phone]. THE [facility] TO ARRANGE VAN TRANSPORATION. CM ALSO WAITING INPATIENT REHAB PRESCREENING FOR [facility] INPATIENT REH[facility]. Elie Broderick, CASE MANAGEMENT
--- NOTE | 2017-03-09 17:02 | NUR ---
BLOOD SUGAR OF 201, 4UNITS OF HUMALOG GIVEN PER S/S AND 15UNITS OF HUMULIN NPH ORDERED. PT UP TO SIDE OF BED, EATING DINNER, DENIES ANY NEEDS AT THIS TIME. CALL LIGHT IN REACH,NAD NOTED, WILL CONTINUE TO
--- NOTE | 2017-03-09 18:30 | NUR ---
PT IN BED, WITH EYES CLOSED, EASILY AROUSES, PT DENIES ANY NEEDS AT THIS TIME. CALL LIGHT IN REACH, BRANDON MAT ON AND IN PLACE, NAD NOTED, WILL CONTINUE TO MONITOR.
--- NOTE | 2017-03-09 19:37 | NUR ---
ALERT/AWAKE TALKING ON PHONE DENIES PAIN OR ANY NEEDS. R CHEST HEMESPLIT DRSG C/D/I. SCD' ARE ON. WALKER BESIDE BED. BED IS LOW WITH SR UP X2. HAS CALL LIGHT AND BEDSIDE TABLE WITH PERSONAL ITEMS IN REACH.
--- NOTE | 2017-03-09 21:40 | NUR ---
ADMIN SCHED MEDS AND INSULINS FOR BS 271. GAVE APPLESAUCE AND BARRERA CRACKERS FOR A SNACK.
[2017-03-10] VITALS (12 sets, daily range): BP systolic 102–152; BP diastolic 44–71
--- NOTE | 2017-03-10 03:00 | NUR ---
RESTING WITH EYES CLOSED. RR 18 EVEN U/L. NO S/S OF PAIN OR DISCOMFORT. BED IS LOW WITH SR UP X2. CALL LIGHT IN REACH.
[2017-03-10 04:40] LABS: BASOPHILS 0.2 % (0-2); EOSINOPHILS 4.3 % (0-7); HEMOGLOBIN 11.8 g/dL (13.5-17.5); IMMATURE GRANULOCYTES 0.3 % (0-5); LYMPHOCYTES 21.6 % (15-50); MCH 30.5 pg (26.0-34.0); MCHC 32.8 g/dL (31.0-37.0); MEAN PLATELET VOLUME 9.4 fL (7.4-10.4); MONOCYTES 9.4 % (2-11); NEUTROPHILS 64.2 % (40-80); RBC 3.87 10x6/uL (4.20-6.10); RDW 19.4 % (11.5-14.5); WBC 6.3 10x3/uL (4.8-10.8)
[2017-03-10 04:49] LABS: PLATELET COUNT 166 10x3/uL (130-400)
[2017-03-10 05:14] LABS: ANION GAP 14.9 mmol/L (8-16); CALCIUM 9.4 mg/dL (8.5-10.1); CREATININE - SERUM 7.1 mg/dL (0.6-1.3)
[2017-03-10 05:29] LABS: CARBON DIOXIDE 30.1 mmol/L (21.0-32.0); PHOSPHOROUS 6.1 mg/dL (2.5-4.9)
--- NOTE | 2017-03-10 07:15 | NUR ---
ASSESSMENTCOMPLETED. TELEMERTY SHOWS SR AT 75. ON ROOM AIR. RIGHT SUB CLAVIAN HEMOSPLIT.PT IS HARD OF HEARING. UP WITH WALKER AND STAND BY ASSIST. HAS SOME RIGHT SIDED WEAKNESS. BOSEY ALARM ON BED. ALERT AND ORIENTED. WILL MONITOR
--- NOTE | 2017-03-10 08:33 | NUR ---
UP IN CHAIR WITH CALL LIGHT IN REACH. WILL MONITOR NEEDS.
--- NOTE | 2017-03-10 13:03 | NUR ---
Patient Name: MARC CHADWICK Encounter No: [id number] : 1945 Primary Insurance: MEDICARE A & B Anticipated DC Date: Planned Disposition: INPATIENT REHAB External Planned Provider: [facility] INPAT[facility] REHAB DCP follow-up note: CM SPOKE TO [place], CLINICAL LIAISON FOR [facility], , THE [facility] WILL ACCEPT PT FOR REHAB AT DISCHARGE IF PT DESIRES. CM NOTIFIED PT WHO WANTS TO BE CONSIDERED FOR INPATIENT REHAB AND IF DECLINED, WILL GO TO THE [facility]. CM FAXED UPDATE TO [facility] OF THE [facility] AT [phone]. 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 FOR DISCHARGE, NOTIFY [facility] INPATIENT REHAB TO COMPLETE SCREENING FOR ADMISSION. Elie Broderick, CASE MANAGEMENT
--- NOTE | 2017-03-10 22:37 | NUR ---
1899-REPORT RECIEVED. 1904-SHIFT ASSESSMENT COMPLETE, PLEASE SEE FLOW SHEETS FOR DETAILS. C/O 8/10 BACK PAIN BUT STATES ROLLING ONTO HIS SIDE ELEVIATES THIS. PATIENT IS SLOW TO RESPOND TO QUESTIONS AND NEEDS TO BE TALKED TO SLOWLY, BUT IS A&O X4. DENIES ANY NEEDS ATT. BED LOW AND LOCKED, CALL LIGHT IN REACH. WILL CPOC. 1999-REQUESTED A LATE NIGHT SNACK, OFFERED SANDWICH, THIS WAS ACCEPTED AND 100% EATEN. WILL CPOC.
[2017-03-11 00:55] VITALS: BP 110/64
[2017-03-11 04:02] VITALS: BP 126/64
--- NOTE | 2017-03-11 04:16 | NUR ---
0100-TOOK OFF HIS PROVIDED CLOTHING (SCRUBS), WANTED TO JUST WEAR HIS ROBE. DENIES ANY NEEDS ATT. BED LOW AND LOCKED, CALL LIGHT IN REACH. WILL CPOC. 0300-SLEEPING, NO S&S OF DISTRESS NOTED. BED LOW AND LOCKED, CALL LIGHT IN REACH. WILL CPOC.
[2017-03-11 06:04] LABS: BASOPHILS 0.3 % (0-2); EOSINOPHILS 4.9 % (0-7); HEMATOCRIT 34.3 % (42.0-54.0); HEMOGLOBIN 11.3 g/dL (13.5-17.5); IMMATURE GRANULOCYTES 0.2 % (0-5); LYMPHOCYTES 22.1 % (15-50); MCH 30.5 pg (26.0-34.0); MCHC 32.9 g/dL (31.0-37.0); MCV 92.7 fL (80.0-100.0); MEAN PLATELET VOLUME 9.3 fL (7.4-10.4); MONOCYTES 10.4 % (2-11); NEUTROPHILS 62.1 % (40-80); PLATELET COUNT 177 10x3/uL (130-400); RDW 19.5 % (11.5-14.5); WBC 6.5 10x3/uL (4.8-10.8)
[2017-03-11 06:30] LABS: ANION GAP 20.1 mmol/L (8-16); CARBON DIOXIDE 24.5 mmol/L (21.0-32.0); POTASSIUM - SERUM 4.6 mmol/L (3.5-5.1)
[2017-03-11 06:32] LABS: CREATININE - SERUM 9.4 mg/dL (0.6-1.3); PHOSPHOROUS 8.1 mg/dL (2.5-4.9)
[2017-03-11 07:45] VITALS: BP 161/59
--- NOTE | 2017-03-11 08:10 | NUR ---
ASSESSMENT PER FLOW SHEET.PT WITHOUT DISTRESS.DENIES NEEDS.CALL LIGHT IN REACH, USE INSTRUCTED.
--- NOTE | 2017-03-11 10:22 | NUR ---
Patient Name: MARC CHADWICK Encounter No: [id number] : 1945 Primary Insurance: MEDICARE A & B Anticipated DC Date: 03-11-2017 Planned Disposition: Inpatient Rehab External Planned Provider: [facility] INPATIENT REH[facility] DCP follow-up note: CM RECEIVED DISCHARGE ORDER, SPOKE TO PT IN ROOM AND DISCUSSED REHAB OPTIONS OF INPATIENT AND [facility] [place]. PT WOULD LIKE TO GO TO INPATIENT REHAB AT [place], REPORTS HE HAS BEEN THERE IN THE PAST AND FEELS IT WILL BE THE BEST WAY TO GET BACK HOME SOONER TO HIS DOGS. IMPORTANT MESSAGE FROM MEDICARE PROVIDED AND EXPLAINED. CM SPOKE TO KUSHAL OF [facility] INPATIENT REH[facility] WHO REPORTS SHE WILL LOOK AT PT AGAIN TODAY. [facility] INPATIENT REHAB TO CONTACT MED 2 NURSE WITH ROOM NUMBER WHEN READY TO ACCEPT PT AND NURSE REPORT. Elie Broderick, CASE MANAGEMENT
--- NOTE | 2017-03-11 11:20 | NUR ---
This patient meets IRF criteria and will be accepted. He has an order for a consult with Dr Kennedy for a possible AVF. This needs to be addressed prior to being accepted to rehab. Discussed with the CM Jhonny Broderick. Lindsay Houston RN Clinical Liaison, Rehab
[2017-03-11 11:37] VITALS: BP 146/74
--- NOTE | 2017-03-11 12:53 | NUR ---
UP AT BEDSIDE.REMAINS WITHOUT DISTRESS.CALL LIGHT IN REACH
--- NOTE | 2017-03-11 14:20 | NUR ---
TO DIALYSIS VIA BED
--- NOTE | 2017-03-11 16:36 | NUR ---
SPOKE WITH CRISTINA RAHMAN APN ON PHONE. REVIEWED PATIENT'S DISCHARGE MEDICATIONS AND DIET. WAS GIVEN NEW ORDERS FOR DISCHARGE AND MEDICATIONS.
--- NOTE | 2017-03-11 17:06 | NUR ---
REPORT TO ANRDA ON REHAB, PT WILL GO TO ROOM 114A.
--- NOTE | 2017-03-12 07:08 | DS ---
PATIENT:MARC CHADWICK :[birth year] MEDICAL RECORD: [id number] DISCHARGE SUMMARY ADMISSION DATE: 03/04/17 DISCHARGE DATE: 03/11/17 HISTORY OF PRESENT ILLNESS: Mr. Chadwick is a 72-year-old white male with end-stage renal disease and chronic dialysis, presents following multiple falls at home with plan of persistent dizziness. HOSPITAL COURSE: The patient had an initial CT of his head that was negative. His carotid Doppler was negative. MRI was not done due to presence of a pacemaker. He was seen by Dr. Farmer who felt that this was possibly either vertebral or medication is origin. Subsequently underwent a change in his drugs. He did have a postural hypotension and was eventually placed on midodrine and with his medication changes and further improvement of his hypotension his overall condition improved and he was satisfactory for transfer to inpatient rehabilitation. Dr. Kennedy was consulted for his fistula for creation of an AV fistula and this will be done as an outpatient. DISCHARGE DIAGNOSES: 1. Hypotension and dizziness, medication related, neurological workup negative. 2. End-stage renal disease, chronic dialysis. 3. Chronic anemia. 4. Chronic hypotension. 5. Autonomic neuropathy due to diabetes mellitus. 6. Hyperlipidemia, on statin therapy. PLAN: The patient will be transferred to inpatient Rehab. He will continue his current dialysis schedule as well as his renal diabetic diet. We will continue to see him in Rehab. We will arrange for outpatient AV fistula with Dr. Kennedy. DISCHARGE MEDICATIONS: Nitropatch 5mg daily, midodrine 2.5 t.i.d., NPH insulin 25 b.i.d., propranolol 10 mg t.i.d., Renagel 1600 t.i.d. with meals, Protonix 40 mg daily, baby aspirin 1 daily, Plavix 75 mg daily, Colace p.r.n., Lipitor 40 mg daily. We will continue Epogen as an outpatient and Nephro-Consuelo 1 daily. TRANSINT:[id number] Voice Confirmation ID: [id number] DOCUMENT ID: [id number] EMA GOMEZ MD at 0708 CC: [id number] DICTATION DATE: 03/11/17 0609 RELATIONSHIP SPECIALIST: 03/11/17 1142 DIS IN 03/11/17 [id number] [place] [address]
== END 2017-03-11 19:00 | DRG 312 ==
LOC: D.ER 16:03 → D.M2 22:31 → OBSVTIME 22:31 → D.M2 03-04 10:30 → D.REHAB 03-11 17:53 → D.M2 03-11 18:49
PROVIDERS: Family Medicine; Internal Medicine Nephrology; ADMIT Internal Medicine Nephrology
PROC: 5A1D70Z Performance of Urinary Filtration, Intermittent, Less than 6 Hours Per Day (ICD-10-PCS; principal; 2017-03-04)
DX: I95.2 Hypotension due to drugs (principal); N18.6 End stage renal disease; I12.0 Hypertensive chronic kidney disease with stage 5 chronic kidney disease or end stage renal disease; Z91.81 History of falling; E11.22 Type 2 diabetes mellitus with diabetic chronic kidney disease; Z99.2 Dependence on renal dialysis; I25.10 Atherosclerotic heart disease of native coronary artery without angina pectoris; F03.90 Unspecified dementia, unspecified severity, without behavioral disturbance, psychotic disturbance, mood disturbance, and anxiety; D63.1 Anemia in chronic kidney disease; E87.5 Hyperkalemia; N40.0 Benign prostatic hyperplasia without lower urinary tract symptoms; Z95.5 Presence of coronary angioplasty implant and graft; Z95.1 Presence of aortocoronary bypass graft; Z95.0 Presence of cardiac pacemaker; Z87.891 Personal history of nicotine dependence; E11.43 Type 2 diabetes mellitus with diabetic autonomic (poly)neuropathy; Z79.4 Long term (current) use of insulin; Z86.73 Personal history of transient ischemic attack (TIA), and cerebral infarction without residual deficits

== ENCOUNTER 2017-03-11 15:45 | Inpatient (IN) | payer MEDICARE ==
[~2017-03-11 15:45] MED LIST changes: +LIPITOR40 MG PO; +RENVELA800 MG PO
--- NOTE | 2017-03-11 18:35 | NUR ---
RECIEVED ON FLOOR FROM DIALYSIS.ORIENTED TO ROOM;CL.
--- NOTE | 2017-03-11 19:25 | NUR ---
INTRODUCED MYSELF AND EXPLAINED MY ROLE IN HIS CARE TONIGHT AND THE ADMISSION PROCESS. PT. STATED HE UNDERSTOOD. ALSO INSTRUCTED PT. ON HIS SAFETY WHILE IN THE UNIT AND HOW TO USE CALL LIGHT SYSTEM FOR ASSISTANCE BEFORE ATTEMPTING TO GET OOB. AGAIN PT. STATED HE UNDERSTOOD. ADMIT PAPERS EXPLAINED AND SIGNED. CALL LIGHT WITHIN REACH.
[2017-03-11 20:00] VITALS: BP 118/56
[2017-03-11 21:54] VITALS: BP 118/56; BMI 27.6
--- NOTE | 2017-03-11 21:54 | NUR ---
ADMISSION PROCESS/ASSESSMENT COMPLETED. NO VOICED NEEDS AT THIS TIME AND PT. HAS EATING HIS BEDTIME SNACK OF APPLESAUCE AND WOULD NOW LIKE SOME ORANGE SHERBERT. COMPLIED WITH PT'S REQUEST.
--- NOTE | 2017-03-11 23:30 | NUR ---
PT. FOUND IN [address] IN [place]. PT. REPORTS HIS CALL LIGHT ISN'T WORKING. ASSISTED PT. TO HIS ROOM AND INDEED HIS CALL LIGHT ISN'T WORKING. FIXED CALL LIGHT SYSTEM AND CHECKED TO MAKE SURE IT WAS WORKING AND IT IS. ASSISTED PT. TO BR TO HAVE B.M. ASSISTED PT. BACK TO BED AND POSITIONED TO COMFORT AND INSTRUCTED HIM ON THE SAFETY SYSTEM IS BACK ON AND IT WILL ALARM IF HE TRIED TO GET OOB WITHOUT ASSISTANCE. PT. STATED HE UNDERSTOOD AND REQUESTED HELP WITH TURNING TV OFF AT THIS TIME. COMPLIED WITH HIS REQUEST AND CALL LIGHT LEFT WITH PT.
[2017-03-12 01:30] VITALS: BP 123/80
--- NOTE | 2017-03-12 03:01 | NUR ---
PT. IN BED LYING ON HIS RIGHT SIDE WITH EYES CLOSED AND RESP. EVEN. CALL LIGHT WITHIN REACH.
[2017-03-12 05:33] LABS: BASOPHILS 0.3 % (0-2); EOSINOPHILS 5.7 % (0-7); HEMATOCRIT 36.4 % (42.0-54.0); HEMOGLOBIN 11.9 g/dL (13.5-17.5); IMMATURE GRANULOCYTES 0.4 % (0-5); LYMPHOCYTES 21.9 % (15-50); MCH 30.4 pg (26.0-34.0); MCHC 32.7 g/dL (31.0-37.0); MCV 93.1 fL (80.0-100.0); MEAN PLATELET VOLUME 9.3 fL (7.4-10.4); NEUTROPHILS 62.7 % (40-80); PLATELET COUNT 172 10x3/uL (130-400); RBC 3.91 10x6/uL (4.20-6.10); RDW 19.4 % (11.5-14.5); WBC 6.7 10x3/uL (4.8-10.8)
[2017-03-12 06:02] LABS: ANION GAP 17.7 mmol/L (8-16); CALCIUM 9.1 mg/dL (8.5-10.1); CARBON DIOXIDE 27.9 mmol/L (21.0-32.0); CREATININE - SERUM 7.3 mg/dL (0.6-1.3)
[2017-03-12 06:11] LABS: POTASSIUM - SERUM 3.6 mmol/L (3.5-5.1)
[2017-03-12 07:00] VITALS: BP 106/63
[2017-03-12 08:00] VITALS: BP 106/63
--- NOTE | 2017-03-12 08:05 | NUR ---
PT RESTING IN BED WITH EYES OPEN CALL LIGHT IN REACH WILL MONITER
[2017-03-12 11:06] VITALS: BMI 28.2
[2017-03-12 12:30] VITALS: BP 123/80
--- NOTE | 2017-03-12 14:51 | RHP ---
PATIENT: MARC CHADWICK MEDICAL RECORD: [id number] ACCOUNT: [id number] LOCATION:[facility]1114 : 49 ADMISSION DATE: 03/11/17 REHABILITATION HISTORY AND PHYSICAL EXAMINATION POST ADMISSION PHYSICIAN EXAMINATION Post-admission Physical Examination and History and Physical DATE OF ADMISSION: 03/11/2017 ADMITTING DIAGNOSIS: Uremic myopathy. HISTORY OF PRESENT ILLNESS: The patient is a 72-year-old gentleman admitted to inpatient rehab with a uremic myopathy. He has got a past medical history of end-stage renal disease, coronary artery disease, carotid stenosis, diabetes and frequent falls. He is admitted to the hospital on March 04. He presented to the Emergency Room by EMS with generalized weakness. The patient was admitted for possible CVA due to history of CVA and TIAs in the past. He has got peripheral vascular disease as well as coronary artery disease and carotid stenosis, status post carotid endarterectomy in 2016. He denied any syncope; however, he has moderate dementia and cannot tell why he was here. He still has a catheter for dialysis, but no permanent placement yet. His blood sugars have been greater than 400. He is not taking his insulin correctly. His potassium was 5.[address] of his head showed old infarcts. Currently, he is alert and oriented with avat-jy-ehxisyts global cognition dysfunction. He answers questions fairly fully at this time. No language deficit and speech is normal. The patient is independent with ADLs and live alone. He rides [employer] transit bus to and from dialysis 3 times a week. Currently, he is moderate to max assist for ADLs and mobility due to orthostatic lightheadedness and feeling of impending syncope associated with feeling of global weakness, pronounce proximal weakness, significant hypotension and signs of hypoperfusion when getting up from supine to standing position. He has multiple loss of balance while ambulating and requires moderate assist by PT. He plans on discharge back home, hopefully get back to his prior level of functioning. COMORBIDITIES: In this patient include diabetes, hypertension, hypertensive chronic kidney disease, kidney failure, dependence on renal dialysis, mental status changes, dementia, anemia, peripheral vascular disease, coronary artery disease status post coronary artery bypass grafting, carotid stenosis, history of CVA, electrolyte abnormalities, hypotension, orthostatic hypertension, pacemaker placement in the past, hyperkalemia and autonomic neuropathy. PAST MEDICAL HISTORY: Significant for CVA. 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 PAST SURGICAL HISTORY: Includes knee surgery, appendectomy, T&A, dialysis catheter, defibrillator placed and coronary artery bypass grafting in the past. ALLERGIES: METHADONE. CURRENT MEDICATIONS: Include melatonin 3 mg at bedtime, Desyrel 25 mg daily, metoprolol 25 mg b.i.d., lisinopril 10 mg daily, Norvasc 2.5 mg daily, Protonix 40 mg daily, Flomax 0.4 mg daily, Renagel 800 mg t.i.d. with meals, Imdur 30 mg daily, he is on Plavix 75 mg daily, aspirin chewable 81 mg daily, furosemide 40 HISTORY AND PHYSICAL [id number] NETTAMARC Dawkins mg on nondialysis days, polyethylene glycol 17 grams in 8 ounces of water daily, Surfak 240 mg daily, he is on Lantus 20 units bedtime and atorvastatin 40 mg daily. HABITS: No current alcohol or tobacco use. FAMILY HISTORY: Noncontributory. SOCIAL HISTORY: The patient would like to return back home and get back to his prior level of functioning. REVIEW OF SYSTEMS: GENERAL: Does complain of weakness. HEENT: Denies cold, cough, or congestion. CARDIOVASCULAR: Denies chest pain. PHYSICAL EXAMINATION: VITAL SIGNS: Stable, afebrile. GENERAL: An elderly gentleman in no acute distress, alert upon exam. HEENT: Normocephalic and atraumatic. Mucosa moist. NECK: Supple. No lymphadenopathy. LUNGS: Clear at this time. HEART: Regular rate and rhythm. ABDOMEN: Benign. EXTREMITIES: No clubbing, cyanosis, or edema. NEUROLOGIC: Slow to mentate. LABORATORY DATA: His white count is 6.7, H&H of 11 and 36, and platelet count was noted to be 172. His sodium is 139, potassium 3.6, BUN and creatinine of 41 and 7.3, and blood sugar is noted to be 133. ASSESSMENT: This is a 72-year-old gentleman with multiple comorbidities who presents secondary to uremic myopathy. The patient has potential to make improvement. We instituted the following multidisciplinary therapies including, but not limited to physical, occupational, respiratory, speech, nutritional services, prosthetics and orthotics. Given his complex condition and risk for more complications, rehabilitation services cannot be provided at a low level of care such as long-term facility. PLAN: 1. Admit to [facility] rehab for intensive inpatient therapy to include the following disciplines: A. Physical therapy to improve gait, all transfer skills and bed mobility to a modified independent level. B. Occupational therapy to improve activities of daily living to a modified independent level. C. Case management to assist with discharge planning and placement options. D. Nutrition to assist with nutritional needs. E. Rehabilitation nursing to assist in monitoring the patient's underlying medical conditions and to assist with any type of bowel or bladder management. 2. The patient's current medications and medical care will be continued. 3. The placed on standard fall precautions. 4. The patient's estimated length of stay is approximately 7-10 days. 5. Discuss this patient during care team staff meeting this week. HISTORY AND PHYSICAL [id number] NETTAMARC Dawkins TRANSINT:[id number] Voice Confirmation ID: [id number] DOCUMENT ID: [id number] ALVARO notes whether there has been none or any medical/functional change since admission: - No change since prescreen. ALVARO attests patient continues to be appropriate for IRF: - Continues to be appropriate. KAZ MARI MD at 1451 CC: [id number] DICTATION DATE: 03/12/17911 GAS MAIN FITTER HELPER: 03/12/17 1104 ADM IN [facility] [address] [place] [address]
--- NOTE | 2017-03-12 17:00 | NUR ---
TAKEN TO BATHROOM SBA;VOIDED AND WALKED TO BED.ALARM SET.CL IN REACH.
[2017-03-12 18:13] VITALS: BP 128/82
--- NOTE | 2017-03-12 18:23 | NUR ---
PT RESTING IN BED WITH EYES OPEN CALL LIGHT IN REACH WILL MONITER
--- NOTE | 2017-03-12 19:30 | NUR ---
PT IS RESTING IN BED WITH EYES OPEN. ALERT AND ORIENTED X 3. DENIES ANY PAIN OR DISCOMFORT AT THIS TIME. NO NEEDS VOICED. RIGHT CHEST KP SPLIT CATH NOTED. SR'S ARE UP X 3 IN BED. CALL LIGHT AND BEDSIDE TABLE ARE WITHIN EASY REACH. BED ALARM IN ON.
--- NOTE | 2017-03-12 21:46 | NUR ---
PT ASSISTED TO BATHROOM WITH CGA. NO FURTHER NEEDS ARE VOICED.
--- NOTE | 2017-03-13 00:01 | NUR ---
PT IS VERY RESTLESS, SITTING UP AND DOWN IN BED. SETS OFF THE BED ALARM FREQUENTLY. ASSISTED TO THE BATHROOM PRN.
[2017-03-13 00:30] VITALS: BP 125/75
--- NOTE | 2017-03-13 01:55 | NUR ---
UP IN HALLWAY IN W/C. CONTINUES RESTLESS AT NIGHT, FREQUENTLY SETTING OFF BRANDON BED ALARM, WANTING TO WHEEL HIMSELF AROUND THE BERNARD IN W/C THROUGHOUT THE SHIFT.
--- NOTE | 2017-03-13 02:50 | NUR ---
RESTING IN BED WITH EYES CLOSED.
[2017-03-13 06:10] VITALS: BP 124/61
--- NOTE | 2017-03-13 06:30 | NUR ---
PT IS RESTING QUIETLY IN BED WITH EYES CLOSED.
[2017-03-13 07:15] LABS: BASOPHILS 0.1 % (0-2); EOSINOPHILS 6.8 % (0-7); HEMATOCRIT 34.6 % (42.0-54.0); HEMOGLOBIN 11.7 g/dL (13.5-17.5); IMMATURE GRANULOCYTES 0.3 % (0-5); LYMPHOCYTES 20.2 % (15-50); MCH 30.9 pg (26.0-34.0); MCHC 33.8 g/dL (31.0-37.0); MCV 91.3 fL (80.0-100.0); MEAN PLATELET VOLUME 9.1 fL (7.4-10.4); MONOCYTES 8.6 % (2-11); PLATELET COUNT 162 10x3/uL (130-400); RBC 3.79 10x6/uL (4.20-6.10); RDW 19.3 % (11.5-14.5); WBC 7.1 10x3/uL (4.8-10.8)
[2017-03-13 07:27] LABS: HEMOGLOBIN A1C 8.7 % (4.8-6.0)
--- NOTE | 2017-03-13 07:36 | NUR ---
RESTING QUIETLY IN BED.CL IN REACH.
--- NOTE | 2017-03-13 08:24 | NUR ---
PT RESTING IN BED WITH EYES OPEN CALL LIGHT IN REACH NO PROBLEMS WILL MONITER
--- NOTE | 2017-03-13 18:21 | NUR ---
PT RESTING IN BED WITH EYES OPEN CALL LIGHT IN REACH NO PROBLEMS WILL MONITER
--- NOTE | 2017-03-13 19:30 | NUR ---
PT IS UP IN WC PROPELLING SELF AROUND THE HALLS AND VISITING WITH VARIOUS PEOPLE WHO PASS. ALERT AND ORIENTED X 3. DENIES ANY DISCOMFORT AT THIS TIME. RIGHT CHEST KP SPLIT CATHETER NOETD. NO NEEDS VOICED.
[2017-03-13 20:00] VITALS: BP 133/60
--- NOTE | 2017-03-13 21:55 | NUR ---
PT IS RESTING QUIETLY IN BED WITH EYES CLOSED. RESPS ARE EVEN AND UNLABORED. NO ACUTE DISTRESS NOTED. SR'S ARE UP X 3 IN BED. CALL LIGHT AND BEDSIDE TABLE ARE WITHIN EASY REACH. BED ALARM IS ON.
[2017-03-14 00:15] VITALS: BP 129/76
--- NOTE | 2017-03-14 00:18 | NUR ---
PT SITTING ON THE SIDE OF HIS BED EATING HS SNACK.
[2017-03-14 05:59] LABS: BASOPHILS 0.1 % (0-2); EOSINOPHILS 4.8 % (0-7); HEMATOCRIT 33.3 % (42.0-54.0); HEMOGLOBIN 11.1 g/dL (13.5-17.5); IMMATURE GRANULOCYTES 0.4 % (0-5); LYMPHOCYTES 23.9 % (15-50); MCH 30.9 pg (26.0-34.0); MCHC 33.3 g/dL (31.0-37.0); MCV 92.8 fL (80.0-100.0); MEAN PLATELET VOLUME 9.6 fL (7.4-10.4); MONOCYTES 9.7 % (2-11); NEUTROPHILS 61.1 % (40-80); PLATELET COUNT 162 10x3/uL (130-400); RBC 3.59 10x6/uL (4.20-6.10); RDW 19.4 % (11.5-14.5); WBC 6.7 10x3/uL (4.8-10.8)
[2017-03-14 06:14] VITALS: BP 116/73
--- NOTE | 2017-03-14 06:25 | NUR ---
PT IS RESTING IN BED WITH EYES CLOSED.
[2017-03-14 06:26] LABS: ANION GAP 17.8 mmol/L (8-16); CALCIUM 8.9 mg/dL (8.5-10.1); CARBON DIOXIDE 25.8 mmol/L (21.0-32.0); CREATININE - SERUM 7.8 mg/dL (0.6-1.3); PHOSPHOROUS 7.1 mg/dL (2.5-4.9); POTASSIUM - SERUM 3.6 mmol/L (3.5-5.1)
--- NOTE | 2017-03-14 07:36 | NUR ---
SITTING UP IN BED WATCHING MORNING NEWS. ALERT AND ORIENTED X3. NO S/SX OF DISTRESS. CALL LIGHT WITHIN REACH, BED IN LOWEST POSITION, AND ALARM ON. WILL CONTINUE TO MONITOR
--- NOTE | 2017-03-14 08:19 | NUR ---
PT EATING BREAKFAST, DENIES NEEDS. WCTM.
--- NOTE | 2017-03-14 10:27 | NUR ---
LYING IN BED ON LEFT SIDE. EASILY AROUSED WITH VERBAL STIMULI. NO S/SX OF ACUTE DISTRESS. CALL LIGHT WITHIN REACH, BED IN LOWEST POSITION AND ALARM ON. WILL CONTINUE TO MONITOR
[2017-03-14 12:15] VITALS: BP 87/50
--- NOTE | 2017-03-14 16:25 | NUR ---
LYING IN BED RESTING QUIELTY. DENIES ANY NEEDS OR PAIN. CALL LIGHT WITHIN REACH, BED ALARM ON AND BED IN LOWEST IN LOWEST POSITION. WILL CONTINUE TO [facility].
[2017-03-14 18:09] VITALS: BP 88/43
--- NOTE | 2017-03-14 18:34 | NUR ---
LYING IN BED WATCHING FOOTBALL. DENIES ANY NEEDS OR PAIN. NO S/SX OF ACUTE DISTRESS. CALL LIGHT WITHIN REACH, BED IN LOWEST POSITION AND ALARM ON. WILL CONTINUE TO MONITOR
--- NOTE | 2017-03-14 19:45 | NUR ---
PT IS SITTING ON THE SIDE OF HIS BED EATING A SHERBERT. NO NEEDS VOICED.
[2017-03-14 21:41] VITALS: BP 146/68
--- NOTE | 2017-03-14 22:06 | NUR ---
PT RESTING IN BED WITH EYES CLOSED.
--- NOTE | 2017-03-15 01:11 | NUR ---
RESTING IN BED WITH EYES CLOSED.
--- NOTE | 2017-03-15 03:51 | NUR ---
RESTINGIN BED WITH EYES CLOSED. NO S/S OF DISTRESS OBSERVED. HEMOSPLIT TO RIGHT CHEST. LAYING ON RIGHT SIDE. CALL LIGHT AND OVERBED TABLE IN REACH.
[2017-03-15 06:18] VITALS: BP 132/61
--- NOTE | 2017-03-15 06:29 | NUR ---
PT RESTING IN BED WITH EYES CLOSED. AWOKE EASILY TO VERBAL STIMULI. VSS. NO NEEDS VOICED.
--- NOTE | 2017-03-15 08:17 | NUR ---
SITTING UP ON SIDE OF BED EATING BREAKFAST. DENIES ANY NEEDS OR PAIN. ALERT AND ORIENTED X4. NO S/SX OF ACUTE DISTRESS. CALL LIGHT WITHIN REACH, BED ALARM ON AND IN LOWEST POSITION. WILL CONTINUE TO MONITOR
--- NOTE | 2017-03-15 11:41 | NUR ---
SITTING UP IN BED WATCHING TV. DENIES ANY PAIN OR NEEDS. CALL LIGHT WITHIN REACH, BED ALARM ON AND IN LOWEST POSITION. WILL CONTINUE TO MONITOR
[2017-03-15 12:07] VITALS: BP 135/67
--- NOTE | 2017-03-15 12:29 | NUR ---
PT EATING LUNCH, DENIES NEEDS. WCTM.
--- NOTE | 2017-03-15 15:39 | NUR ---
SITTING UP IN BED WATCHING TV. DENIES ANY NEEDS OR PAIN. NO S/SX OF ACUTE DISTRESS. CALL LIGHT WITHIN REACH, BED LOW AND ALARM ON. WILL CONTINUE TO MONITOR
[2017-03-15 18:15] VITALS: BP 113/60
--- NOTE | 2017-03-15 19:37 | NUR ---
PT IS RESTING IN BED WITH EYES OPEN. ALERT AND ORIENTED X 3. DENIES PAIN OR DISCOMFORT. PT ASKING FOR HIS HS SNACK. ENCOURAGED TO WAIT UNTIL AFTER HIS BLOOD SUGAR IS CHECKED. HE VOICED UNDERSTANDING. SR'S ARE UP X 3 IN BED. CALL LIGHT AND BEDSIDE TABLE ARE WITHIN EASY REACH.
[2017-03-15 19:57] VITALS: BP 127/63
--- NOTE | 2017-03-15 21:31 | NUR ---
PT ASSISTED TO THE BATHROOM WITH SBA. NO COMPLAINT VOICED.
--- NOTE | 2017-03-15 23:31 | NUR ---
PT RESTING IN BED WITH EYES CLOSED.
[2017-03-16] VITALS: BP 109/58
--- NOTE | 2017-03-16 04:11 | NUR ---
RESTING IN BED WITH EYES CLOSED. NO S/S OF DISTRESS OBSERVED.EASILY AROUSES WITH VERBAL STIMULI. HEMOSPLIT TO LEFT UPPER CHEST. CALL LIGHT AND OVERBED TABLE IN REACH.
--- NOTE | 2017-03-16 04:30 | NUR ---
REST IN BED, EYE CLOSE, CALL LIGHT IN REACH.
[2017-03-16 06:02] VITALS: BP 130/71
--- NOTE | 2017-03-16 06:55 | NUR ---
RESTING QUIETLY IN BED. BED IN LOWEST POSITION. CALL LIGHT IN REACH.
[2017-03-16 12:13] VITALS: BP 134/70
[2017-03-16 18:00] VITALS: BP 57/47
--- NOTE | 2017-03-16 18:16 | NUR ---
PT RESTING IN BED WITH EYES OPEN CALL LIGHT IN REACH WILL MONITER
--- NOTE | 2017-03-16 19:18 | NUR ---
PT BACK [facility]. WILL GIVE PT'S MEDS AND HEAT UP PT'S DINNER.
--- NOTE | 2017-03-16 19:56 | NUR ---
PT. HAS ONLY BEEN BACK FROM DIALYSIS A FEW MINUTES AND IS IN HIS W/C EATING HIS DINNER. CALL LIGHT WITHIN REACH.
--- NOTE | 2017-03-16 20:00 | NUR ---
PT UP IN WC. WATCHING TV. DIALYSIS M,W,F. DAILY WEIGHT. Q6H VITALS. VERY [place]. NO O2. RIGHT CHEST HEMOSPLIT. FSBS HS. PACEMAKER. BRANDON ALARM ON. BED IN LOWEST POSITION AND CALL LIGHT WITHIN REACH.
--- NOTE | 2017-03-17 | NUR ---
PT IN BED WITH HOB UP FOR COMFORT. RESTING QUIETLY. RESP. EVEN. BED IN LOWEST POSITION AND CALL LIGHT WITHIN REACH.
[2017-03-17 00:40] VITALS: BP 96/47
--- NOTE | 2017-03-17 01:46 | NUR ---
PT STATED "I FELL TWO WEEKS AGO CHECKING MY MAILBOX. I LIVE ON AN INCLINE AND I ROLLED DOWN ABOUT 15 FT." PT COMPLAINING OF PAIN IN BOTH HANDS, BUT PT STATED, "I DON'T WANT ANY PAIN MEDICATION. IT MAKES ME VOMIT. I [facility] [place]-[facility] AND I DON'T REALLY TAKE THEM CAUSE IT MAKES ME SICK AND I VOMIT." NO SWELLING NOTICED IN EITHER OF PT'S HANDS. STATED TO PT, "DR. MARI WILL BE HERE IN THE MORNING. I WILL PUT IT ON HIS SHEET AND LET HIM KNOW." PT STATES, "THANK YOU."
--- NOTE | 2017-03-17 04:05 | NUR ---
PT IN BED WITH HOB UP FOR COMFORT. EYES CLOSED. CHEST RISING AND FALLING. BED IN LOWEST POSITION AND CALL LIGHT WITHIN REACH.
[2017-03-17 05:42] LABS: BASOPHILS 0.2 % (0-2); EOSINOPHILS 4.1 % (0-7); HEMATOCRIT 31.5 % (42.0-54.0); HEMOGLOBIN 10.5 g/dL (13.5-17.5); IMMATURE GRANULOCYTES 0.3 % (0-5); LYMPHOCYTES 20.3 % (15-50); MCH 31.1 pg (26.0-34.0); MCHC 33.3 g/dL (31.0-37.0); MCV 93.2 fL (80.0-100.0); MEAN PLATELET VOLUME 9.4 fL (7.4-10.4); MONOCYTES 10.2 % (2-11); NEUTROPHILS 64.9 % (40-80); RBC 3.38 10x6/uL (4.20-6.10); RDW 19.3 % (11.5-14.5); WBC 6.3 10x3/uL (4.8-10.8)
[2017-03-17 05:55] LABS: PLATELET COUNT 126 10x3/uL (130-400)
[2017-03-17 06:00] VITALS: BP 99/36
[2017-03-17 06:09] LABS: ANION GAP 18.2 mmol/L (8-16); CALCIUM 8.8 mg/dL (8.5-10.1); CARBON DIOXIDE 24.3 mmol/L (21.0-32.0); CREATININE - SERUM 8.5 mg/dL (0.6-1.3); PHOSPHOROUS 6.6 mg/dL (2.5-4.9); POTASSIUM - SERUM 3.5 mmol/L (3.5-5.1)
--- NOTE | 2017-03-17 06:15 | NUR ---
PT NAKED IN BED. PT STATES, "I DON'T WANT TO WEAR ANY CLOTHES." PT COMPROMISED AND PUT ON GOWN. PT STATED, "I DONT FEEL VERY GOOD." I ASKED WHAT WAS WRONG AND IF PT WAS IN ANY PAIN. PT STATED, "MY KIDNEYS." I AKSED PT IF THERE WAS ANYTHING I COULD DO AND HE STATED "NO." I TOLD PT TO LET ME KNOW IF HE NEEDS ANYTHING. CL LEFT IN REACH.
--- NOTE | 2017-03-17 07:45 | NUR ---
LYING IN BED ON RIGHT SIDE RESTING. AWOKE PT TO EAT BREAKFAST. ALERT AND ORIENTED X4. DENIES ANY NEEDS OR PAIN. CALL LIGHT WITHIN REACH, BED LOW AND ALARM ON. WILL CONTINUE TO MONITOR
--- NOTE | 2017-03-17 08:00 | NUR ---
SITTING UP ON SIDE OF BED.CL IN REACH.
--- NOTE | 2017-03-17 08:59 | NUR ---
PT C/O NOT FEELING WELL CHECKED BP 75/30 P65 R16 O2 98%. ELAVATED FOOT OF BED AND LOWERED HEAD. RECHECKED BP AT 0905 93/41 P65 PT STATES HIS HEAD IS HURTING PT IS ALERT AND ORIENTED X4. NO S/SX OF DISTRESS. WILL CONTINUE TO MONITOR BP
[2017-03-17 12:16] VITALS: BP 109/54
--- NOTE | 2017-03-17 13:30 | NUR ---
LYING IN BED RESTING QUIETLY. BP STABLE 105/52. NO S/SX OF ACUTE DISTRESS. CALL LIGHT WITHIN REACH, BED ALARM ON AND BED IN LOWEST POSITION. WILL CONTINUE TO MONITOR
--- NOTE | 2017-03-17 14:14 | NUR ---
Nutrition Follow Up: Pt is eating 100% meal avg on a renal ADA diet. +BM 03/17/17. Wt loss noted - likely r/t fluid. Meds and labs reviewed. Rec continue current diet. RD following.
--- NOTE | 2017-03-17 15:54 | NUR ---
PATIENT ADMITTED TO REHAB FROM ACUTE FLOOR. DR. KELLY FROM [facility] IS HIS PCP. HE HAS USED [facility] AND HE ALSO GETS HELP FROM [facility] [address]. HIS IS A HD PATIENT AND HAS DIALYSIS ON M-W- @ 10AM AT [facility]. PLANS ARE FOR PATIENT TO POSSIBLY GO [facility] AT THE [place]. WILL CONTINUE TO FOLLOW WITH PATIENT AND WILL ASSIT WITH DISCHARGE NEEDS
--- NOTE | 2017-03-17 16:25 | NUR ---
LYING IN BED WATCHING TV. DENIES ANY NEEDS OR PAIN. NO S/SX OF ACUTE DISTRESS. CALL LIGHT WITHIN REACH, BED ALARM ON, SR X2 AND BED IN LOWEST POSITION. WILL CONTINUE TO MONITOR
[2017-03-17 18:57] VITALS: BP 122/65
--- NOTE | 2017-03-17 19:35 | NUR ---
PT. IN BED WITH HOB UP FOR COMFORT AND IS WATCHING TV. CALL LIGHT WITHIN REACH.
--- NOTE | 2017-03-17 20:00 | NUR ---
PT IN BED. RESTING QUIETLY.DIALYSIS M,W,F. DAILY WEIGHT. Q6H VITALS. VERY [place]. NO O2. RIGHT CHEST HEMOSPLIT. FSBS HS. PACEMAKER. BRANDON ALARM ON. BED IN LOWEST POSITION AND CALL LIGHT WITHIN REACH. BED/CHAIR ALARM WAIVER.
--- NOTE | 2017-03-18 | NUR ---
PT IN BED WITH HOB UP FOR COMFORT. RESTING QUIETLY. RESPIRATIONS EVEN AND UNLABORED. BED IN LOWEST POSITION AND CALL LIGHT WITHIN REACH.
[2017-03-18 06:11] VITALS: BP 93/46
[2017-03-18 06:33] LABS: ANION GAP 20.9 mmol/L (8-16); CALCIUM 8.8 mg/dL (8.5-10.1); CARBON DIOXIDE 21.6 mmol/L (21.0-32.0); CREATININE - SERUM 10.6 mg/dL (0.6-1.3); PHOSPHOROUS 8.1 mg/dL (2.5-4.9); POTASSIUM - SERUM 3.5 mmol/L (3.5-5.1)
--- NOTE | 2017-03-18 09:45 | NUR ---
IN SHOWER BEING ASST BY [place]ala[place]ala
[2017-03-18 12:00] VITALS: BP 110/57
--- NOTE | 2017-03-18 15:22 | NUR ---
CARE TEAM MEETING: PATIENT TENATIVE DISCHARGE DATE IS 03/25/17 . HE WILL DISCHARGE TO THE [facility]. WILL CONTINUE TO FOLLOW WITH PATIENT AND WILL ASSIST WITH DISCHARGE NEEDS.
--- NOTE | 2017-03-18 17:12 | NUR ---
JUST GOT BACK FROM DIALYSIS. NOW EATING SUPPER IN ROOM
--- NOTE | 2017-03-18 17:18 | NUR ---
Mr. Lewis had hemodialysis in the dialysis suites today from 1356 unti 1656 via his right IJ Hemosplit. Pt. was very hypotensive today requiring two normal saline boluses of 100 mls each. Net fluid removed was 1000 mls. Notes sutures off catheter and just a little bit out of place but achieved an average blood flow of 300 mls/minute. Post vital signs were: B/P:135/64, HR: 87, Temp: 97.7, resps: 18.
[2017-03-18 18:00] VITALS: BP 106/56
--- NOTE | 2017-03-18 18:18 | NUR ---
RESTING QUIETLY. DENIES NEEDS. CALL LIGHT IN REACH.
--- NOTE | 2017-03-18 19:18 | NUR ---
PT. IN BED WITH HOB FLAT, LYING ON HIS LEFT SIDE. EYES CLOSED AND RESP. EVEN. CALL LIGHT WITHIN REACH.
--- NOTE | 2017-03-18 19:30 | NUR ---
PT LYING IN BED. WATCHING TV. DIALYSIS M,W,F. DAILY WEIGHT. Q6H VITALS. NO O2. RIGHT CHEST HEMOSPLIT. FSBS BID. PACEMAKER. BRANDON ALARM ON. VERY [place]. BED IN LOWEST POSITION AND CALL LIGHT WITHIN REACH. BED/CHAIR ALARM WAIVER.
--- NOTE | 2017-03-18 23:30 | NUR ---
PT IN BED WITH HOB UP FOR COMFORT. RESTING QUIETLY. RESPIRATIONS EVEN AND UNLABORED. BED IN LOWEST POSITION AND CALL LIGHT WITHIN REACH.
[2017-03-18 23:40] VITALS: BP 105/52
--- NOTE | 2017-03-19 03:30 | NUR ---
PT IN BED WITH HOB UP FOR COMFORT. EYES CLOSED. CHEST RISING AND FALLING. BED IN LOWEST POSITION AND CALL LIGHT WITHIN REACH.
[2017-03-19 06:14] VITALS: BP 117/62
--- NOTE | 2017-03-19 06:52 | NUR ---
PT LYING IN BED. EYES CLOSED. CHEST RISING AND FALLING. BED IN LOWEST POSITION AND CALL LIGHT WITHIN REACH.
--- NOTE | 2017-03-19 07:20 | NUR ---
RESTING QUIETLY IN BED. BED IN LOWEST POSITION. CALL LIGHT IN REACH
--- NOTE | 2017-03-19 07:57 | NUR ---
SITTING UP ON SIDE OF BED EATING BREAKFAST. ALERT AND ORIENTED X4. C/O RIGHT ABDOMINAL PAIN. DR. GOMEZ IS AWARE. DENIES ANY OTHER NEEDS OR PAIN. NO S/SX OF ACUTE DISTRESS. CALL LIGHT WITHIN REACH, SR X2, BED ALARM ON, AND BED IN LOWEST POSITION. WILL CONTINUE TO MONITOR
--- NOTE | 2017-03-19 09:42 | NUR ---
IN THERAPY GYM WITH PHYSICAL THERAPY. NO S/SX OF ACUTE DISTRESS. DENIES ANY NEEDS. WILL CONTINUE TO MONITOR
--- NOTE | 2017-03-19 10:55 | NUR ---
NICOLEMaciel CAME TO NURSES STATION AND ADVISED THAT PT WAS NOT FEELING WELL AND HIS BP WAS 68/41 AND PT WAS GIVEN A MT. DEW TO DRINK TO HELP BRING IT UP. ALFONSO ADVISED THAT PT WAS PUT IN BED WITH HIS LEGS ELEVATED. WENT TO PT ROOM AND PT WAS LETHARGIC AND STATED HE WAS NOT FEELING VERY WELL. RECHECKED BP 70/32 P76 R17 O2SAT 97%. PT STATES THAT HE DOES NOT FEEL DIZZY AND HE IS NOT DIAPHORETIC. WILL CONTINUE TO MONITOR BP.
--- NOTE | 2017-03-19 11:05 | NUR ---
LYING IN BED WITH FEET ELEVATED BP 82/44 P76 PT IS MORE ALERT WILL CONTINUE TO STAY WITH PT AND MONITOR BP.
--- NOTE | 2017-03-19 11:15 | NUR ---
BP 85/38 P76 ALERT AND ORIENTED NO S/SX OF ACUTE DISTRESS. WILL CONTINUE TO MONITOR PT BP AND HOLD THERAPY FOR THE REST OF THE DAY DUE TO BP ISSUES.
--- NOTE | 2017-03-19 11:45 | NUR ---
LYING IN BED WITH FEET ELEVATED. NO S/SX OF ACUTE DISTRESS. BP 89/47 P79. STATES HE IS FEELING BETTER. CALL LIGHT WITHIN REACH, BED ALARM ON, SR X3, AND BED ALARM IN LOWEST POSITION. WILL CONTINUE TO MONITOR
[2017-03-19 12:11] VITALS: BP 81/39
--- NOTE | 2017-03-19 12:16 | NUR ---
LYING IN BED RESTING. DENIES ANY NEEDS. CALL LIGHT WITHIN REACH, BED ALARM ON AND BED IN LOWEST POSITION. WILL CONTINUE TO MONITOR
--- NOTE | 2017-03-19 14:17 | NUR ---
IN THERAPY GYM WITH OCCUPATIONAL THERAPY. DENIES ANY NEEDS. WILL CONTINUE TO MONITOR
[2017-03-19 18:08] VITALS: BP 146/77
--- NOTE | 2017-03-19 18:45 | NUR ---
CHANGED RIGHT CHEST HEMESPLIT DRESSING. NO REDNESS OR SWELLING TO AREA. CLEANSED AREA PER PROTOCOL AND APPLIED NEW STERILE DRESSING. PT TOLERATED WELL.
--- NOTE | 2017-03-19 20:50 | NUR ---
FINISHING SHOWER, REST IN BED AND WATCH TV.
[2017-03-19 22:56] VITALS: BP 157/83
--- NOTE | 2017-03-19 23:54 | NUR ---
REST IN BED, STATES:" JUST FINISH WATCH TV, AND READY GO TO SLEEP."
--- NOTE | 2017-03-20 02:25 | NUR ---
LAYING IN BED WITH EYES OPEN AND TV ON. REQUESTED DOOR STAY OPEN D/T HEAT I THE ROOM. ASKED IF HE WANTED THE HEAT TURNED DOWN. STATED "NO.JUST LEAVE THE DOOR OPEN".CALL LGHT AND OVERBED TABLE IN REACH. NONCOMPLIANT WITH USING CALL LIGHT FOR ASSIST. GOT OUT OF BED AND IN W/C TWICE WITHOUT ASSIST. ATTEMPTS TO REEDUCATE UNSUCESSFUL.
--- NOTE | 2017-03-20 04:18 | NUR ---
RESTING IN BED WITH EYES CLOSED AND LAYING ON ABDOMEN. NO S/S OF DISTRESS OBSERVED. CALL LIGHT AND OVERBED TABLE IN REACH.
[2017-03-20 05:15] LABS: BASOPHILS 0.3 % (0-2); EOSINOPHILS 5.7 % (0-7); HEMATOCRIT 30.2 % (42.0-54.0); HEMOGLOBIN 10.3 g/dL (13.5-17.5); IMMATURE GRANULOCYTES 0.2 % (0-5); LYMPHOCYTES 17.2 % (15-50); MCH 31.2 pg (26.0-34.0); MCHC 34.1 g/dL (31.0-37.0); MCV 91.5 fL (80.0-100.0); MEAN PLATELET VOLUME 9.7 fL (7.4-10.4); MONOCYTES 10.1 % (2-11); NEUTROPHILS 66.5 % (40-80); PLATELET COUNT 119 10x3/uL (130-400); RDW 18.3 % (11.5-14.5); WBC 5.9 10x3/uL (4.8-10.8)
[2017-03-20 05:30] LABS: CALCIUM 9.1 mg/dL (8.5-10.1); CARBON DIOXIDE 23.7 mmol/L (21.0-32.0); CREATININE - SERUM 10.2 mg/dL (0.6-1.3); PHOSPHOROUS 6.8 mg/dL (2.5-4.9); POTASSIUM - SERUM 3.7 mmol/L (3.5-5.1)
[2017-03-20 05:42] VITALS: BP 115/57
[2017-03-20 12:12] VITALS: BP 126/58
[2017-03-20 18:15] VITALS: BP 135/63
--- NOTE | 2017-03-20 19:05 | NUR ---
RECIEVED LAYING IN BED WITH EYES CLOSED AND LAY ON HIS ABDOMEN. NO S/S OF DISTRESS OBSERVED. CALL LIGHT AND OVERBED TABLE IN REACH.
[2017-03-20 19:18] VITALS: BP 135/63
--- NOTE | 2017-03-20 21:04 | NUR ---
LAYING IN BED WITH EYES OPEN AND TV ON. VERY [place]. DENIES ANY APIN. CALL LIGHT AND OVERBED TABLE IN REACH.
[2017-03-21] VITALS: BP 125/77
--- NOTE | 2017-03-21 00:17 | NUR ---
UP IN W/C PROPELLING SELF AROUND UNIT. LEFT THE UNIT AND BROUGHT BACK BY STAFF. STATING HE WAS IN THE LOBBY LOOKIG FOR HIS ROOM. DOORS CLOSED TO THE UNIT AND ASSISTED PT BACK TO ROOM. DENIES ANY PAIN.
--- NOTE | 2017-03-21 03:20 | NUR ---
RESTINGIIN BED AT THIS TIME WITH EYES CLOSED. LAYING ON HIS RIGHT SIDE. NO S/S OF DISTRESS OBSERVED. CALL LIGHT AND OVERBED TABLE IN REACH.
[2017-03-21 05:28] LABS: BASOPHILS 0.4 % (0-2); EOSINOPHILS 7.5 % (0-7); HEMATOCRIT 29.1 % (42.0-54.0); HEMOGLOBIN 9.8 g/dL (13.5-17.5); IMMATURE GRANULOCYTES 0.4 % (0-5); LYMPHOCYTES 18.9 % (15-50); MCH 30.8 pg (26.0-34.0); MCHC 33.7 g/dL (31.0-37.0); MCV 91.5 fL (80.0-100.0); MEAN PLATELET VOLUME 9.4 fL (7.4-10.4); MONOCYTES 10.4 % (2-11); NEUTROPHILS 62.4 % (40-80); PLATELET COUNT 117 10x3/uL (130-400); RBC 3.18 10x6/uL (4.20-6.10); RDW 18.4 % (11.5-14.5); WBC 5.1 10x3/uL (4.8-10.8)
[2017-03-21 05:41] LABS: ANION GAP 15.1 mmol/L (8-16); CALCIUM 8.8 mg/dL (8.5-10.1); CARBON DIOXIDE 26.7 mmol/L (21.0-32.0); CREATININE - SERUM 9.1 mg/dL (0.6-1.3); PHOSPHOROUS 5.8 mg/dL (2.5-4.9); POTASSIUM - SERUM 3.8 mmol/L (3.5-5.1)
[2017-03-21 05:52] VITALS: BP 131/61
--- NOTE | 2017-03-21 07:32 | NUR ---
lying in bed on left side resting. appropriate rise and fall of chest. no s/sx of acute distress. call light within reach, bed alarm on and in lowest position. will continue to monitor
--- NOTE | 2017-03-21 10:17 | NUR ---
SITTING UP IN BED RESTING. ALERT AND ORIENTED X3. DENIES ANY PAIN OR NEEDS. CALL LIGHT WITHIN REACH, BED ALARM ON AND IN LOWEST POSITION. WILL CONTINUE TO MONITOR
[2017-03-21 12:10] VITALS: BP 132/67
--- NOTE | 2017-03-21 13:32 | NUR ---
SITTING UP IN BED WATCHING TV. NO S/SX OF ACUTE DISTRESS. DENIES ANY NEEDS OR PAIN. CALL LIGHT WITHIN REACH, BED ALARM ON AND BED IN LOWEST POSITION. WILL CONTINUE TO MONITOR
--- NOTE | 2017-03-21 14:43 | NUR ---
IN BED WATCHING FOOTBALL GAME.CL IN REACH.
--- NOTE | 2017-03-21 17:00 | NUR ---
CHECKED BS 426 RECHECKED 434 NOTIFIED DAVID BRYANT, PT HAD AN ORANGE SHERBERT 45MIN PRIOR TO FSBS. PT RECEIVED STANDING ORDER OF 15UNITS HUMILIN NPH. PT IS ASYMPTOMATIC. WILL CONTINUE TO MONITOR
[2017-03-21 18:14] VITALS: BP 150/83
--- NOTE | 2017-03-21 18:38 | NUR ---
SITTING UP IN BED WATCHING TV. DENIES ANY PAIN OR NEEDS AT THIS TIME. NO S/SX OF ACUTE DISTRESS. CALL LIGHT WITHIN REACH, BED ALARM ON AND IN LOWEST POSITION WILL CONTINUE TO MONITOR
--- NOTE | 2017-03-21 20:05 | NUR ---
REST IN BED AND WATCH TV.
[2017-03-21 23:14] VITALS: BP 156/78
--- NOTE | 2017-03-22 01:25 | NUR ---
PATIENT IN BED, AWAKE. WATCHING TV.
--- NOTE | 2017-03-22 03:21 | NUR ---
REST IN BED, EYE CLOSE, CALL LIGHT IN REACH.
[2017-03-22 05:14] VITALS: BP 165/83
--- NOTE | 2017-03-22 07:30 | NUR ---
LYING IN BED ON RIGHT SIDE EYES CLOSED RESTING. NO S/SX OF ACUTE DISTRESS. APPROPRIATE RISE AND FALL OF CHEST. CALL LIGHT WITHIN REACH, BED ALARM ON AND BED IN LOWEST POSITION. WILL CONTINUE TO MONITOR
--- NOTE | 2017-03-22 10:53 | NUR ---
SITTING UP IN BED WATCHING TV. DENIES ANY NEEDS OR PAIN. NO S/SX OF ACUTE DISTRESS. CALL LIGHT WITHIN REACH, BED ALARM ON , BED LOW, WATER AT BEDSIDE. WILL CONTINUE TO MONITOR
[2017-03-22 12:27] VITALS: BP 111/67
--- NOTE | 2017-03-22 14:00 | NUR ---
RESTING QUIETLY ON SIDE.CL IN REACH.
--- NOTE | 2017-03-22 14:35 | NUR ---
SITTING UP IN BED WATCHING TV. DENIES ANY NEEDS OR PAIN. CALL LIGHT WITHIN REACH, BED ALARM ON, BED LOW AND WATER WITHIN REACH. WILL CONTINUE TO MONITOR
--- NOTE | 2017-03-22 19:30 | NUR ---
PT IS RESTING IN BED WITH EYES OPEN. ALERT AND ORIENTED X 3. DENIES ANY PAIN OR DISCOMFORT AT THIS TIME. PT IS VERY [place]. VSS. LEFT CHEST HEMISPLIT CATH FOR DIALYSIS USE NOTED. SR'S ARE UP X 3 IN BED. CALL LIGHT AND BEDSIDE TABLE ARE WITHIN EASY REACH.
--- NOTE | 2017-03-22 20:21 | NUR ---
PT. IN BED LYING ON HIS ABD. EYES CLOSED AND RESP. DEEP AND EVEN. CALL LIGHT WITHIN REACH.
--- NOTE | 2017-03-22 20:53 | NUR ---
PT IS RESTING QUIETLY IN BED WITH EYES CLOSED. RESPS ARE EVEN AND UNLABORED. NO ACUTE DISTRESS NOTED.
[2017-03-23 00:01] VITALS: BP 154/74
--- NOTE | 2017-03-23 00:01 | NUR ---
PT IS RESTING QUIETLY IN BED WITH EYES CLOSED. NO NEEDS VOICED. UP TO BATHROOM PRN.
--- NOTE | 2017-03-23 02:49 | NUR ---
RESTING IN BED WITH EYES CLOSED.
[2017-03-23 06:05] VITALS: BP 126/71
--- NOTE | 2017-03-23 06:09 | NUR ---
PT RESTING IN BED WITH EYES CLOSED. AWOKE TO LOUD VERBAL STIMULI, BUT DRIFTED OFF TO SLEEP SEVERAL TIMES DURING FSBS, MEDS, ETC. NO NEEDS VOICED.
--- NOTE | 2017-03-23 07:58 | NUR ---
SITTING UP EATING BREAKFAST. BED IN LOWEST POSITION. CALL LIGHT IN REACH.
--- NOTE | 2017-03-23 10:09 | NUR ---
PATIENT IN REHAB ROOM. WORKING WITH PHYSICAL THEAPIST. DENIES ANY PAIN/DISC AT THIS TIME.
--- NOTE | 2017-03-23 11:34 | NUR ---
PATIENT SITTING UP IN WHEELCHAIR AT BEDSIDE AFTER THERAPY. CALL LIGHT WITHIN REACH.
[2017-03-23 12:16] VITALS: BP 127/72
--- NOTE | 2017-03-23 15:09 | NUR ---
DIALYSIS CLINIC CALLED AND STATED THAT THEY ARE READY FOR PATIENT. PRN TYLENOL GIVEN BEFORE GOING DOWN TO CLINIC. PATIENT TAKEN IN WHEELCHAIR BY STAFF.
--- NOTE | 2017-03-23 19:00 | NUR ---
DIALYSIS CLINIC CALLED. PATIENT DONE WITH DIALYSIS. THIS NURSE WENT DOWN TO CLINIC PATIENT BACK IN ROOM. DIALYSIS STATED THAT TWO LITERS OF FLUID REMOVED.
--- NOTE | 2017-03-23 19:30 | NUR ---
PT SITTING IN WC IN HIS ROOM EATING HIS SUPPER AFTER DIALYSIS. ALERT AND ORIENTED X 3. DENIES ANY NEEDS AT THIS TIME. PT IS VERY [place]. RIGHT CHEST KP SPLIT DIALYSIS CATH NOTED. SR'S ARE UP X 2 WHILE IN BED. CALL LIGHT AND BEDSIDE TABLE ARE WITHIN EASY REACH.
--- NOTE | 2017-03-23 22:06 | NUR ---
PT IS RESTING IN BED WATCHING TV. NO NEEDS VOICED.
[2017-03-23 23:50] VITALS: BP 122/48
--- NOTE | 2017-03-23 23:53 | NUR ---
RESTING IN BED WITH EYES OPEN. NO ACUTE DISTRESS NOTED.
--- NOTE | 2017-03-24 03:07 | NUR ---
RESTING IN BED WITH EYES CLOSED.
[2017-03-24 05:27] LABS: BASOPHILS 0.3 % (0-2); EOSINOPHILS 5.7 % (0-7); HEMOGLOBIN 10.3 g/dL (13.5-17.5); IMMATURE GRANULOCYTES 0.3 % (0-5); LYMPHOCYTES 17.6 % (15-50); MCH 31.5 pg (26.0-34.0); MCHC 33.2 g/dL (31.0-37.0); MCV 94.8 fL (80.0-100.0); MEAN PLATELET VOLUME 9.2 fL (7.4-10.4); NEUTROPHILS 66.1 % (40-80); PLATELET COUNT 149 10x3/uL (130-400); RBC 3.27 10x6/uL (4.20-6.10); RDW 18.8 % (11.5-14.5); WBC 6.1 10x3/uL (4.8-10.8)
--- NOTE | 2017-03-24 05:37 | NUR ---
LAYING IN BED WITH EYES CLOSED. UP MOST OF SHIFT. HEMOSPLIT TO LEFT CHEST. DIALYSIS MON, THU, AND FRI.. CALL LIGHT AND OVERBED TABLE IN REACH.
[2017-03-24 05:41] LABS: ANION GAP 15.8 mmol/L (8-16); CALCIUM 8.9 mg/dL (8.5-10.1); CARBON DIOXIDE 28.2 mmol/L (21.0-32.0); CREATININE - SERUM 8.1 mg/dL (0.6-1.3)
[2017-03-24 06:07] VITALS: BP 115/73
--- NOTE | 2017-03-24 07:23 | NUR ---
LYING IN BED ON LEFT SIDE EYES CLOSED RESTING. APPROPRIATE RISE AND FALL OF CHEST. NO S/SX OF RESPIRATORY DISTRESS. CALL LIGHT WITHIN REACH, BED ALARM ON, BED LOW, AND PERSONAL ITEMS WITHIN REACH. WILL CONTINUE TO MONITOR
--- NOTE | 2017-03-24 10:51 | NUR ---
Nutrition Follow Up: Pt is eating 81% meal avg on a renal ADA diet. Wt stable. +BM 03/23/17. Meds and labs noted. Rec continue current diet. RD following.
--- NOTE | 2017-03-24 11:15 | NUR ---
IN THERAPY GYM WITH SHAHIDA PHILLIPS. NO S/SX OF DISTRESS.
--- NOTE | 2017-03-24 11:22 | NUR ---
PATIENT DISCHARGING TO THE [facility]. [facility] WILL TRANSPORT PATIENT. HE WILL CONTINUE HIS HD DAYS AT [facility] @ 10:00. PATIENT WILL SEE DR. Piper ON HIS HD DAYS. DR. CHEUNG 03/26/17 @ 12:40 WILL CONTINUE TO FOLLOW WITH PATIENT
[2017-03-24 12:01] VITALS: BP 85/50
--- NOTE | 2017-03-24 14:24 | NUR ---
LYING IN BED RESTING. DENIES ANY NEEDS OR PAIN. CALL LIGHT WITHIN REACH, BED ALARM ON, BED LOW. WILL CONTINUE TO MONITOR
[2017-03-24 18:15] VITALS: BP 112/62
--- NOTE | 2017-03-24 20:00 | NUR ---
PT IS RESTING IN BED WITH EYES OPEN. ALERT AND ORIENTED X 3. DENIES ANY PAIN OR DISCOMFORT AT THIS TIME. NO NEEDS VOICED. RIGHT CHEST KP SPLIT DIALYSIS CATH NOTED. SR'S ARE UP X 3 IN BED. CALL LIGHT AND BEDSIDE TABLE ARE WITHIN EASY REACH.
--- NOTE | 2017-03-24 22:27 | NUR ---
PT IS RESTING QUIETLY IN BED WITH EYES CLOSED. RESPS ARE EVEN AND UNLAOBED. NO ACUTE DISTRESS NOTED.
[2017-03-25 00:22] VITALS: BP 122/75
--- NOTE | 2017-03-25 02:18 | NUR ---
RESTING IN BED WITH EYES CLOSED. NO S/S OF DISTRESS OBSERVED. HEMOSPLIT TO RIGHT CHEST. CALL LIGHT AND OVERBED TABLE IN REACH.
--- NOTE | 2017-03-25 04:39 | NUR ---
RESTING IN BED WITH EYES CLOSED.
[2017-03-25 06:00] VITALS: BP 129/79
[2017-03-25 07:01] LABS: BASOPHILS 0.2 % (0-2); EOSINOPHILS 5.7 % (0-7); HEMATOCRIT 32.7 % (42.0-54.0); HEMOGLOBIN 10.9 g/dL (13.5-17.5); IMMATURE GRANULOCYTES 0.3 % (0-5); LYMPHOCYTES 16.3 % (15-50); MCH 31.6 pg (26.0-34.0); MCHC 33.3 g/dL (31.0-37.0); MCV 94.8 fL (80.0-100.0); MEAN PLATELET VOLUME 8.9 fL (7.4-10.4); MONOCYTES 8.8 % (2-11); NEUTROPHILS 68.7 % (40-80); PLATELET COUNT 151 10x3/uL (130-400); RBC 3.45 10x6/uL (4.20-6.10); RDW 18.4 % (11.5-14.5); WBC 6.5 10x3/uL (4.8-10.8)
[2017-03-25 07:26] LABS: ANION GAP 18.8 mmol/L (8-16); CALCIUM 8.9 mg/dL (8.5-10.1); CARBON DIOXIDE 25.5 mmol/L (21.0-32.0); CREATININE - SERUM 9.9 mg/dL (0.6-1.3); POTASSIUM - SERUM 4.3 mmol/L (3.5-5.1)
[2017-03-25] MEDS ORDERED: HUMULIN N100 U/ML SC (08:56)
--- NOTE | 2017-03-25 09:10 | NUR ---
PT TAKEN TO DIALYSIS VIA WC WITH STAFF.
--- NOTE | 2017-03-25 10:40 | NUR ---
PT AM MEDS ADMINISTERED ALONG WITH REQ PRN TYLENOL. PT IN DIALYSIS AT THIS TIME. PT DENIES FURTHER NEEDS. WCTM.
[2017-03-25 13:13] VITALS: BP 104/61
--- NOTE | 2017-03-25 15:35 | NUR ---
PT DISCHARGE INSTRUCTIONS REVIEWED. PT DISCHARGED VIA WHEELCHAIR WITH [facility] STAFF.
--- NOTE | 2017-04-28 10:49 | DS ---
PATIENT:MARC CHADWICK :49 MEDICAL RECORD: [id number] DISCHARGE SUMMARY ADMISSION DATE: 03/11/17 DISCHARGE DATE: 03/25/17 This is a discharge from inpatient rehab dated 03/25/2017. PRIMARY DIAGNOSIS: Decreased functional ability and ability to provide activities of daily living secondary to uremic myopathy. SECONDARY DIAGNOSES: 1. End-stage renal disease, on chronic hemodialysis 3 times weekly. 2. Anemia of chronic disease. 3. Diverticular disease. 4. ____. 5. Orthostatic hypotension. 6. CVA by history. 7. Frequent falls. 8. Carotid stenosis. 9. Generalized weakness. 10. Peripheral vascular disease. 11. Dementia. 12. Hyperlipidemia. 13. Diabetes. 14. Hypertension. 15. Coronary artery disease. CONSULTANTS FOLLOWING THIS HOSPITALIZATION: Nephrology with Nish Lyn MD PROCEDURES IN THIS HOSPITALIZATION: Hemodialysis. HOSPITAL COURSE: Full H&P is located elsewhere on the chart on this 72-year-old male who was admitted to inpatient rehab for physical therapy and occupational therapy to improve gait, transfer skills, bed mobility, and activities of daily living to modified independent level. He was evaluated by PT and OT and their plans of care were followed. He required senior care care for observation, assessment, and medication administration. Fingerstick blood sugars were monitored throughout his hospital stay with appropriate adjustment in medications as needed. He continued 3 times weekly hemodialysis during his hospital stay, managed by nephrology. He developed some abdominal tenderness and pain and was started on Keflex and Flagyl for antibiotic coverage for possible diverticular disease. He was cooperative with therapies, progressing towards goals. Case management was involved for discharge planning. He remained on appropriate home medications. He was considered stable for discharge on 03/25/2017. DISCHARGE MEDICATIONS: As per discharge medication reconciliation. DISCHARGE DISPOSITION: The patient is discharged to the [facility]. He will continue his current diet and level of activity. He will follow with nephrology at [facility] for his dialysis. He will see primary care as directed. He will follow up with Dr. Kennedy as an outpatient for placement of a fistula. At least 30 minutes was spent in this discharge activity. DISCHARGE SUMMARY REPORT [id number] MARC CHADWICK TRANSINT:[id number] Voice Confirmation ID: [id number] DOCUMENT ID: [id number] Dictated By: TRENTON MEDINA I have interviewed/examined the above patient and agree with these documented findings. KAZ MARI MD at 1400 at 1049 CC: [id number] DICTATION DATE: 04/26/171958 CHUCK WAGON DRIVER: 04/27/17 1130 [facility] IN 03/25/17 [id number] [id number]
== END 2017-03-25 17:28 | DRG 91 ==
LOC: D.REHAB 15:45
PROVIDERS: Internal Medicine Nephrology; ADMIT Emergency Medicine
DX: G72.89 Other specified myopathies (principal); N18.6 End stage renal disease; I12.0 Hypertensive chronic kidney disease with stage 5 chronic kidney disease or end stage renal disease; N17.9 Acute kidney failure, unspecified; E11.22 Type 2 diabetes mellitus with diabetic chronic kidney disease; Z99.2 Dependence on renal dialysis; R41.82 Altered mental status, unspecified; F03.90 Unspecified dementia, unspecified severity, without behavioral disturbance, psychotic disturbance, mood disturbance, and anxiety; D64.9 Anemia, unspecified; I73.9 Peripheral vascular disease, unspecified; I25.10 Atherosclerotic heart disease of native coronary artery without angina pectoris; Z95.1 Presence of aortocoronary bypass graft; I65.29 Occlusion and stenosis of unspecified carotid artery; Z95.0 Presence of cardiac pacemaker; G90.9 Disorder of the autonomic nervous system, unspecified; Z86.73 Personal history of transient ischemic attack (TIA), and cerebral infarction without residual deficits

== ENCOUNTER 2017-04-17 08:00 | Day surgery (SDC) | payer MEDICARE ==
[~2017-04-17] VITALS: Ht 165.1 cm; Wt 81.6 kg
[~2017-04-17 08:00] MED LIST changes: +HUMULIN N100 U/ML SC
[2017-04-17 09:05] LABS: BASOPHILS 0.3 % (0-2); EOSINOPHILS 4.8 % (0-7); IMMATURE GRANULOCYTES 0.2 % (0-5); LYMPHOCYTES 12.4 % (15-50); MCH 31.8 pg (26.0-34.0); MCHC 33.3 g/dL (31.0-37.0); MCV 95.5 fL (80.0-100.0); MONOCYTES 7.9 % (2-11); NEUTROPHILS 74.4 % (40-80); RBC 3.77 10x6/uL (4.20-6.10); RDW 14.9 % (11.5-14.5); WBC 6.2 10x3/uL (4.8-10.8)
[2017-04-17 09:09] LABS: INR 0.96 (0.85-1.17); PROTIME 12.7 SECONDS (11.6-15.0)
[2017-04-17 09:10] LABS: APTT 28.8 SECONDS (22.8-39.4)
[2017-04-17 09:11] LABS: ANION GAP 18.7 mmol/L (8-16); CARBON DIOXIDE 24.5 mmol/L (21.0-32.0); CREATININE - SERUM 7.8 mg/dL (0.6-1.3); POTASSIUM - SERUM 4.2 mmol/L (3.5-5.1)
[2017-04-17 09:12] LABS: PLATELET COUNT 182 10x3/uL (130-400)
--- NOTE | 2017-04-17 09:33 | NUR ---
PATIENT VERY VAGUE AND UNSURE OF WHEN HE TOOK HIS MEDS LAST. STATED TOOK ASPIRIN AND CHOLESTEROL PILL YESTERDAY AFTERNOON. PATIENT STATES HE USED TO LIVE IN [facility] AND WAS RELEASED THURSDAY. VERY VAGUE WITH ANSWERS AND UNSURE OF MEDS TAKEN. STATES HAS NO FAMILY TO HELP HIM LIVES AT HOME AND WILL GET HOME VIA [facility].
[2017-04-17 09:37] VITALS: BP 147/82; Ht 165.1 cm; Wt 81.6 kg
[2017-04-17] MEDS ORDERED: ULTRAM50 MG PO (13:02)
--- NOTE | 2017-04-17 13:18 | NUR ---
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 EYES CLOSED AND SNORING O2 2L N/C. ON MONITOR AND BEING MONITORED. RT BEND OF ARM GOOD BRUIT NO THRILL DRESSING C/D/I NO BLEEDING.
--- NOTE | 2017-04-17 13:40 | NUR ---
UZIEL CALLED ABOUT PT GETTING DIALYSIS TODAY
--- NOTE | 2017-04-17 16:09 | NUR ---
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 PATIENT INFORMED OF EVERYTHING AND CALLED HIS FRIEND MR PLEITEZ TO INFORM OF EVERYTHING REQUESTED BY PATIENT, ALSO INFORM TO CALL DR CHEUNG OFFICE ON THURSDAY FOR APPT FOR THAT WEEK,DUE TO OFFICE BEING CLOSE, 1500 IV DC WITH CATHER TIP INTACT. HEMOSTIP FLUSHED PER HOSPITAL PROTOCAL RIGHT ARM STLL NUMB,WITH SLING 1530 HELPED TO RIDE
--- NOTE | 2017-04-19 13:07 | OP ---
PATIENT NAME: MARC CHADWICK MEDICAL RECORD: [id number] :49 LOCATION:[facility] ADMISSION DATE: SURGEON: JESUS CHEUNG MD DATE OF OPERATION: 04/17/2017 PREOPERATIVE DIAGNOSIS: End-stage renal disease. POSTOPERATIVE DIAGNOSIS: End-stage renal disease. OPERATION PERFORMED: Creation of a left arm Vernell-type brachiobasilic AV fistula as a first of 2 planned operations to create a brachial artery to translocated basilic vein AV fistula. SURGEON: Jesus Cheung MD ANESTHESIA: Interscalene block plus general anesthesia with LMA per ISABEL and Dr. Hensley. REFERRING PHYSICIAN: Ema Lyn MD PREOPERATIVE NOTE: Mr. Chadwick is a 72-year-old white male patient, who has end-stage renal disease and has begun dialysis with a right internal jugular tunneled dialysis catheter. He has a pacemaker on the left. He is brought to the operating room today with plans to provide access for long-term dialysis in his right arm. I initially had anticipated implanting a graft, however, at surgery, found that he had a good vein. DESCRIPTION OF PROCEDURE: With patient under initially nerve block regional anesthesia, which was inadequate and subsequently supplemented with general anesthesia with an LMA, the patient was prepped and draped in a sterile manner. A Glencoe drain was used as a proximal venous tourniquet. Nitroglycerin paste was applied to the intact skin of the arm and forearm. I used a duplex ultrasound then to examine the veins and arteries in the arm, and I found the patient had an excellent basilic vein above the antecubital level for creation of a fistula and a very suitable brachial artery, which demonstrated some wall thickening and minimal calcifications, but was of good caliber. I made a hockey stick shaped incision on the medial aspect to the antecubital space and exposed the basilic vein or the median cubital branch of the basilic vein or tributary of the basilic vein and the brachial artery. The vessels were exposed and treated with topical papaverine. The vein was closed distally with Hemoclips. It was then transected and bevelled. It was flushed with heparinized saline and again treated with topical papaverine. The artery was occluded with doubly looped Silastic tapes. A 5-mm arteriotomy was made. The artery was flushed proximally and distally with heparinized saline and the vein was then sutured end of vein to side of artery with running 7-0 Prolene. When the anastomosis was completed and the occluding loops and clamps were released, excellent flow was immediately established in the new fistula. The patient's wound was irrigated with saline and then closed with interrupted inverted 3-0 Vicryl and running intracuticular 4-0 Monocryl. The skin incision was further sealed and closed with Dermabond glue and Maxorb AG. Then, a dressing of Tegaderm and Cavilon skin prep was applied. Prior to wound closure, Doppler examination revealed good continuous pulsatile OPERATIVE REPORT [id number] MARC CHADWICK S flow in the new fistula and in the proximal brachial artery with preservation of pulsatile high resistance type flow in the distal brachial artery. Blood loss during the operation was insignificant, unreplaced. All sponges, instruments, and needles were accounted for. No drain was used and no surgical specimen was submitted for histopathology. PLAN: The patient to go home today. He will resume his daily dose of Plavix. He will return to see me in my office next week and I will plan to return him to the operating room within 2-4 weeks for the second stage of his procedure. Hopefully, he will be able to go on to [facility] or over to [facility] for his routine dialysis treatment, which was scheduled for today. The patient actually had been scheduled to have dialysis yesterday, but did not go as had been arranged. So, today is his usual dialysis day, he needs to dialyze. TRANSINT:[id number] Voice Confirmation ID: [id number] DOCUMENT ID: [id number] JESUS CHEUNG MD at 1307 CC: EMA LYN MD [id number] DICTATION DATE: 04/17/17 1313 MAINTENANCE ELECTRICIAN: 04/17/17 1429 [facility] 04/17/[address] [facility] [address] [id number]
== END 2017-04-17 15:45 | disposition home or self-care (01) ==
LOC: D.OPS 08:00
PROVIDERS: Surgery
DX: I12.0 Hypertensive chronic kidney disease with stage 5 chronic kidney disease or end stage renal disease (principal); E11.22 Type 2 diabetes mellitus with diabetic chronic kidney disease; N18.6 End stage renal disease; G47.30 Sleep apnea, unspecified; I25.10 Atherosclerotic heart disease of native coronary artery without angina pectoris; Z95.5 Presence of coronary angioplasty implant and graft; Z95.1 Presence of aortocoronary bypass graft; Z01.812 Encounter for preprocedural laboratory examination

== ENCOUNTER 2017-04-21 14:45 | Emergency (ER) | payer MEDICARE ==
[~2017-04-21 14:45] MED LIST changes: +ULTRAM50 MG PO
[2017-04-21 16:20] LABS: BASOPHILS 0.3 % (0-2); EOSINOPHILS 3.5 % (0-7); HEMATOCRIT 33.3 % (42.0-54.0); HEMOGLOBIN 10.9 g/dL (13.5-17.5); IMMATURE GRANULOCYTES 0.2 % (0-5); LYMPHOCYTES 14.2 % (15-50); MCH 31.5 pg (26.0-34.0); MCHC 32.7 g/dL (31.0-37.0); MCV 96.2 fL (80.0-100.0); MEAN PLATELET VOLUME 8.9 fL (7.4-10.4); MONOCYTES 7.1 % (2-11); NEUTROPHILS 74.7 % (40-80); PLATELET COUNT 175 10x3/uL (130-400); RBC 3.46 10x6/uL (4.20-6.10); RDW 14.5 % (11.5-14.5); WBC 6.1 10x3/uL (4.8-10.8)
== END 2017-04-21 18:15 | disposition home or self-care (01) ==
LOC: D.ER 14:45
PROVIDERS: Nurse Practitioner Family
DX: G89.18 Other acute postprocedural pain (principal); N18.9 Chronic kidney disease, unspecified; Z99.2 Dependence on renal dialysis

== ENCOUNTER 2017-04-26 16:06 | Inpatient (IN) | payer MEDICARE ==
[~2017-04-26] VITALS: Ht 165.1 cm; Wt 81.8 kg
[2017-04-26 17:54] LABS: BASOPHILS 0.1 % (0-2); EOSINOPHILS 3.3 % (0-7); HEMATOCRIT 30.6 % (42.0-54.0); HEMOGLOBIN 9.9 g/dL (13.5-17.5); IMMATURE GRANULOCYTES 0.3 % (0-5); LYMPHOCYTES 12.8 % (15-50); MCH 31.8 pg (26.0-34.0); MCHC 32.4 g/dL (31.0-37.0); MCV 98.4 fL (80.0-100.0); MEAN PLATELET VOLUME 9.4 fL (7.4-10.4); MONOCYTES 7.3 % (2-11); NEUTROPHILS 76.2 % (40-80); PLATELET COUNT 139 10x3/uL (130-400); RBC 3.11 10x6/uL (4.20-6.10); RDW 14.6 % (11.5-14.5)
[2017-04-26 18:27] LABS: ALBUMIN 3.3 g/dL (3.4-5.0); ANION GAP 17.9 mmol/L (8-16); BILIRUBIN - TOTAL 0.41 mg/dL (0.2-1.3); CARBON DIOXIDE 24.4 mmol/L (21.0-32.0); CREATININE - SERUM 10.7 mg/dL (0.6-1.3); MAGNESIUM - SERUM 2.3 mg/dL (1.8-2.4); POTASSIUM - SERUM 4.3 mmol/L (3.5-5.1); PROTEIN - SERUM 6.9 g/dL (6.4-8.2)
--- NOTE | 2017-04-26 20:19 | NUR ---
PT ARRIVED TO ROOM 2110. PT AAO. LEFT HAND IV S/L. PT C/O RIGHT UPPER ARM. IT IS SWOLLEN AND TENDER. PT VITAL ARE 97/42, PT IS LAYING ON LEFT SIDE AT THIS TIME. NO S/S OF DISTRESS. PT IS TIRED AND SLEEPY. PT HAS A RIGHT CHEST HEMASPLIT. WILL CONTINUE TO MONITOR. PT DENIES ANY NEEDS. NO S/S OF DISTRESS. BED LOW AND CALL LIGHT INREACH.
[2017-04-27] VITALS: BP 106/52
--- NOTE | 2017-04-27 00:01 | NUR ---
PT NOW ON RIGHT SIDE. RESPIRATIONS EVEN AND UNLABORED. AROUSES TO VERBAL STIMULI. BED LOW AND CALL LIGHT INREACH. WILL CPOC
[2017-04-27 00:25] VITALS: BP 97/42; BMI 30.7
--- NOTE | 2017-04-27 03:41 | NUR ---
PT C/O RIGHT ARM. STATES HIS FINGERS FEEL NUMB. ALL PULSES PALP. HAD TO USE DOPPLER ON RADIAL. PT STATES WHEN HE RUBS HIS FINGERS THE FEELING COMES BACK. ASSISTED PT TO ELEVATE ARM TO DECREASE SWELLING. PT DENIES ANY OTHER NEEDS. NO S/S OF DISTRESS. WILL CPOC
[2017-04-27 04:00] VITALS: BP 129/57
--- NOTE | 2017-04-27 06:13 | NUR ---
PT SITTING ON SIDE OF BED EATING SHERBET ICE CREAM. PT DENIES ANY NEEDS AT THIS TIME. NO S/S OF DISTRESS. BED LOW AND CALL LIGHT INREACH .WILL CPOC
--- NOTE | 2017-04-27 07:15 | NUR ---
RECIEVED REPORT ON PATIENT, PATIENT IS ALERT AND ORIENTED AT THIS TIME. SITTING ON SIDE OF BED. PATIENT HAS A L HAND IV THAT IS SL AT THIS TIME. PATIENT DENIES ANY NEEDS AT THIS TIME. WILL CONT TO MONITOR PATIENT. CPOC
[2017-04-27 08:27] VITALS: BP 129/62
--- NOTE | 2017-04-27 10:00 | NUR ---
MORNING MEDICATIONS GIVEN, NO ISSUES. PATIENT GETTING IN SHOWER. CPOC
[2017-04-27 11:22] VITALS: Ht 165.1 cm; Wt 81.8 kg
--- NOTE | 2017-04-27 11:32 | NUR ---
FSBS 209, 4 UNITS OF HUMULIN GIVEN. CPOC
[2017-04-27 11:57] VITALS: BP 147/68
--- NOTE | 2017-04-27 12:13 | NUR ---
PATIENT STATES HE IS FEELING DIZZY, PATIENT PUT BACK IN BED, FSBS 164. BP 136/84, HR 76. PATIENT RESTINGIN BED, WILL NOTIFY DR, AND MONITOR PATIENT. CPOC
--- NOTE | 2017-04-27 13:59 | NUR ---
RATIONALE FOR SCD'S EXPLAINED. REFUSED SCD'S
--- NOTE | 2017-04-27 15:15 | NUR ---
PATIENT GONE TO DIAYLSIS. CPOC
--- NOTE | 2017-04-27 15:49 | NUR ---
CM WENT TO PATIENT'S ROOM TO COMPLETE PATIENT ASSESSMENT. HE WAS NOT PRESENT FOR INTERVIEW. IN DIALYSIS AT THIS TIME. CM TO REVISIT. PATIENT WAS DISCHARGED FROM [facility] 03/24/17 TO THE [facility] PER [facility]ER NOTE FROM REHAB. CM CONSULT ORDER RECEIVED FOR LONGTERM PLACEMENT. CM TO FOLLOW UP
--- NOTE | 2017-04-27 16:50 | NUR ---
INSULIN NOT GIVEN DUE TO PATIENT BEING IN DIAYLSIS AND PATIENT NOT EATING DINNER. CPOC
--- NOTE | 2017-04-27 16:55 | NUR ---
TELEPHONE CALL TO THE [facility]. RHIANNON SPOKE WITH LUIS. THE PATIENT WAS DISCHARGED FROM [facility] ON 03/24/2017 TO THE [facility]. HE WAS SCHEDULED W/ [facility]F AT 1000 FOR HD. F/U WAS SCHEDULED WITH DR NAVA NEPHROLOGY AND DR CHEUNG SURGERY. THE PATIENT DISCHARGED TO HOME ON 04/14/2017 WITH [employer] AT HIS INSISTENCE. THE PLAN PER LUIS W/ THE [facility] WAS FOR FAMILY AND DIVORCE LEGAL ASSISTANT CARE UNDER OR CONTRACT. THE PATIENT CHANGED HIS MIND AND WAS DC/D TO HOME. HE ALSO FOLLOWED BY DR KELLY AT THE OR [facility]. HE HAS HAD [facility] AND [employer]. [employer] WAS PROVIDING HIS CARE AFTER D/C FROM THE [facility]. TC TO [facility] [phone]. AWAIT CB REGARDING PATIENT' SITUATION PRIOR TO ADMISSION. RHIANNON RECEIVED AN ORDER TO ARRANGE FOR FAMILY AND DIVORCE LEGAL ASSISTANT CARE IN NURSING FACILITY. PATIENT PRESENTLY STILL IN HD.
--- NOTE | 2017-04-27 19:30 | NUR ---
PT IS OFF UNIT IN DIALYSIS AT THIS TIME.
--- NOTE | 2017-04-27 20:30 | NUR ---
PT RETURNED FROM DIALYSIS. ALERT AND ORIENTED X 3. DENIES ACUTE DISCOMFORT AT THIS TIME, BUT STATES HE HAS BEEN FEELING BAD A LOT LATELY, AND HAVING HALLUCINATIONS AT TIMES. RIGHT CHEST HEMISPLIT CATH NOTED. SR'S ARE UP X 3 IN BED. CALL LIGHT AND BEDSIDE TABLE ARE WITHIN EASY REACH.
[2017-04-27 20:33] VITALS: BP 128/86
--- NOTE | 2017-04-27 22:44 | NUR ---
RESTING QUIETLY IN BED WITH EYES CLOSED. RESPS ARE EVEN AND UNLABORED. NO ACUTE DISTRESS NOTED.
--- NOTE | 2017-04-28 00:33 | NUR ---
RESTING IN BED WITH EYES CLOSED.
--- NOTE | 2017-04-28 02:32 | NUR ---
RESTING QUIETLY IN BED WITH EYES CLOSED. RESPS ARE EVEN AND UNLABORED. NO ACUTE DISTRESS NOTED.
[2017-04-28 03:47] VITALS: BP 120/74
--- NOTE | 2017-04-28 07:15 | NUR ---
RECIEVED REPORT ON PATIENT, PATIENT IS ALERT AND ORIENTED AT THIS TIME. SITTING ON SIDE OF BED. PATIENT HAS A L HAND IV THAT IS SL AT THIS TIME. PATIENT DENIES ANY NEEDS AT THIS TIME. RESTING IN BED. WILL CONT TO MONITOR PATIENT. CPOC
[2017-04-28 08:00] VITALS: BP 87/50
--- NOTE | 2017-04-28 09:45 | NUR ---
MONRING MEDICATIONS GIVEN, NO ISSUES. PATIENT SITTING ON SIDE OF BED. CPOC
--- NOTE | 2017-04-28 11:29 | NUR ---
Patient Name: MARC CHADWICK Encounter No: [id number] : 1945 Primary Insurance: MEDICARE A & B Anticipated DC Date: Planned Disposition: [facility] MCR External Planned Provider: TO BE DETERMINED DCP follow-up note: CM RECEIVED ORDER FOR [facility] CLERK CARE PLACEMENT. CM MET WITH PT IN ROOM TO DISCUSS DISCHARGE PLANNING AND NEEDS. CM DISCUSSED [facility] CARE. PT INITALLY REPORTS HE IS NOT GOING ANYWHERE BUT HOME. PT REPORTS HE HAS A DOG AND RENTS HIS HOME. CM DISCUSSED DOCTORS CONCERN THAT PT IS FAILURE TO THRIVE AND CANNOT CARE FOR HIMSELF AT HOME. CM DISCUSSED OPTIONS. PT ASKED IF HE WILL LOOSE HIS SOCIAL SECURITY AND VA CHECK; CM EXPLAINED THAT ANY PENITENTIARY OR FACILITY HE GOES TO WILL TAKE HIS CHECKS TO FUND HIS CARE, PT MAY RECEIVE A VERY SMALL ALLOWANCE FROM HIS CHECKS, DEPENDING ON FACILITY. PT REPORTS HE NEEDS SOME TIME TO TALK TO SOME PEOPLE. CM EXPLAINED TO PT THAT HE HAS NO MEDICAL REASON TO BE IN THE HOSPITAL, HIS NEEDS CAN BE MET ELSEWHERE AND IF PT IS REFUSING CORRECTION CARE OR REHAB SERVICES, PT CAN BE DISCHARGED BACK HOME WITH [facility]. PT REPORTS THAT HOME HEALTH WAS NOT DOING ANYTHING FOR HIM EXCEPT EXERCISING HIM AND NOT TAKING CARE OF HIS HOME FOR HIM. CM EXPLAINED HOME HEALTH SERVICES, EXPLAINED TO PT THAT MEDICARE DOES NOT PAY FOR HOME CARE SERVICES; CM EXPLAINED THAT PT WOULD HAVE TO APPLY FOR HOME SERVICES THROUGH THE VA OR MEDICAID. PT DOES NOT THINK THE VA WILL PROVIDE ENOUGH HOME SERVICES FOR HIM. PT AGAIN REPORTS HE IS NOT READY TO MAKE ANY DECISION AND WANTS TO CALL SOMEONE AND ASKED CM TO COME BACK IN AN HOUR OR SO. CM CALLED [place], [facility]IA[facility] FOR [facility], ; [facility] HAS NO CORRECTION CARE BEDS. MO WILL CHECK WITH THE [facility] ADMINISTRATION TO FIND OUT IF PT WAS QUALIFIED FOR AR CORRECTION CARE CONTRACT TO DETERMINE WHAT OPTIONS PT MAY HAVE FOR CORRECTION CARE IN A PENITENTIARY. CM WAITING PT DECISION REGARDING REHAB OR [facility] CLERK CARE PLACEMENT. CM ALSO WAITING CALL FROM [place] REGARDING VA CARE OPTIONS IN PENITENTIARY. Elie Broderick, CASE MANGEMENT
--- NOTE | 2017-04-28 11:30 | NUR ---
PATIENT FSBS 145. NO INSULIN REQUIRED. CPOC
[2017-04-28 12:00] VITALS: BP 107/56
--- NOTE | 2017-04-28 13:00 | NUR ---
PATIENT SITTING ON SIDE OF BED EATING LUNCH. DENIES ANY NEEDS. CPOC
--- NOTE | 2017-04-28 15:49 | NUR ---
PATIENT RESTING AT THIS TIME, NAD NOTED. CHEST RISES AND FALLS EQUALLY. CPOC
[2017-04-28 16:00] VITALS: BP 86/68
--- NOTE | 2017-04-28 16:33 | NUR ---
Patient Name: MARC CHADWICK Encounter No: [id number] : 1945 Primary Insurance: MEDICARE A & B Anticipated DC Date: Planned Disposition: HOME WITH HOME HEALTH External Planned Provider: [facility] DCP follow-up note: CM SPOKE TO PT IN ROOM REGARDING DISABILITY REPRESENTATIVE CARE IN GROUP HOME OR [facility]. PT REPORTS HE HAS TALKED TO HIS FRIENDS SJ AND NOE WHO HAVE AGREED TO ASSIST HIM AT HOME. CM EXPLAINED THAT THE ER DOCTOR AND RENAL DOCTORS AGREE THAT PT SHOULD BE IN DISABILITY REPRESENTATIVE CARE DUE TO INABILITY TO CARE FOR SELF AT HOME. PT REPORTS HE IS NOT GOING TO SHELTER CARE AND HAS HELP OF HIS FRIENDS. CM NOTIFIED PT THAT HE WAS RECEIVING SHELTER CARE IN THE [facility] PAID FOR BY THE PA PRIOR TO LEAVING THERE TWO WEEKS AGO; CM EXPLAINED AVAILABILITY OF PA SHELTER CONTRACT CARE AT [facility] IN [place], [facility] IN [place], [facility] IN [place] AND [facility] IN [place]. PT REPORTS HE IS NOT GOING BACK TO THE [facility], IF HE WAS TO GO, HE WOULD CONSIDER [facility] IN [place], BUT IS NOT GOING ANYWHERE BUT HOME FROM THE HOSPITAL. PT WANTS HOME HEALTH TO RESUME WITH [facility]. IMPORTANT MESSAGE FROM MEDICARE PROVIDED AND EXPLAINED. CM CALLED [facility], SPOKE TO SULLY WHO REPORTS THEY WILL ACCEPT PT BACK FOR RESUMPTION OF CARE AT DISCHARGE. CM NOTIFIED RENAL NURSE CRISTINA OF PT'S DECLINATION OF GROUP HOME OR COMMUNITY HOME SHELTER CARE PLACEMENT. FOR DISCHARGE HOME, NOTIFY [facility] AT [phone], FAX DISCHARGE INFORMATION TO [facility] AT [phone]. PT REPORTS FRIEND TO PICK HIM UP FOR TRANSPORT HOME. Elie Broderick, CASE MANAGEMENT
--- NOTE | 2017-04-28 17:05 | NUR ---
FSBS 217, 4 UNITS OF HUMULIN GIVEN. NPH GIVEN PER ORDER. PATIENT DENIES ANY NEEDS. CPOC
--- NOTE | 2017-04-28 18:48 | NUR ---
PATIENT INFORMED I WAS LEAVING, TIME FOR SWITCHING SHIFTS. PATIENT NEEDS MET. DENIES ANY OTHER NEEDS. CPOC
[2017-04-28 21:38] VITALS: BP 98/39
--- NOTE | 2017-04-28 23:50 | NUR ---
RECEIVED IN BEDROOM. RESTING IN BED WITH EYES CLOSED. CONFUSED. NO SIGNS OF HALLUCINATIONS. IV SALINE LOCKED. DENIES PAIN AT THIS TIME. CALL LIGHT IN REACH
[2017-04-29 00:37] VITALS: BP 84/38
--- NOTE | 2017-04-29 03:35 | NUR ---
RESTING IN BED WITH EYES CLOSED. NO SIGNS OF DISTRESS. CALL LIGHT IN REACH
[2017-04-29 04:53] VITALS: BP 71/41
[2017-04-29 05:16] LABS: BASOPHILS 0.2 % (0-2); EOSINOPHILS 6.8 % (0-7); HEMATOCRIT 30.7 % (42.0-54.0); HEMOGLOBIN 10.2 g/dL (13.5-17.5); IMMATURE GRANULOCYTES 0.3 % (0-5); MCH 32.2 pg (26.0-34.0); MCHC 33.2 g/dL (31.0-37.0); MCV 96.8 fL (80.0-100.0); MEAN PLATELET VOLUME 9.9 fL (7.4-10.4); MONOCYTES 10.2 % (2-11); NEUTROPHILS 64.5 % (40-80); RBC 3.17 10x6/uL (4.20-6.10); RDW 14.2 % (11.5-14.5); WBC 5.9 10x3/uL (4.8-10.8)
[2017-04-29 05:21] LABS: PLATELET COUNT 168 10x3/uL (130-400)
[2017-04-29 05:30] LABS: ANION GAP 17.3 mmol/L (8-16); CALCIUM 7.8 mg/dL (8.5-10.1); CARBON DIOXIDE 25.2 mmol/L (21.0-32.0); CREATININE - SERUM 9.3 mg/dL (0.6-1.3); PHOSPHOROUS 6.9 mg/dL (2.5-4.9); POTASSIUM - SERUM 3.5 mmol/L (3.5-5.1)
--- NOTE | 2017-04-29 07:15 | NUR ---
RECIEVED REPORT ON PATIENT, PATIENT IS SLEEPING AT THIS TIME, NAD NOTED AT THIS TIME. CHEST RISES AND FALLS EQUALLY. PATIENT HAS A L HAND IV THAT IS SL. PATIENT AROUSES TO VOICE, DENIES ANY NEEDS. WILL CONT TO MONITOR PATIENT. CPOC
[2017-04-29 08:17] VITALS: BP 121/46
--- NOTE | 2017-04-29 09:30 | NUR ---
MORNING MEDICATIONS GIVEN. NO ISSUES. CPOC
[2017-04-29 11:22] VITALS: BP 96/40
--- NOTE | 2017-04-29 12:30 | NUR ---
PATIENT EATING LUNCH. DENIES ANY NEEDS
--- NOTE | 2017-04-29 13:01 | NUR ---
IV DC'D WITH TIP INTACT DUE TO INFILTRATION. COVERED WITH 2X2 GAUZE AND TAPE. TOLERATED WELL
--- NOTE | 2017-04-29 13:31 | NUR ---
SLEEPING AT PRESENT.
--- NOTE | 2017-04-29 14:54 | NUR ---
Patient Name: MARC CHADWICK Encounter No: [id number] : 1945 Primary Insurance: MEDICARE A & B Anticipated DC Date: Planned Disposition: Home with Home Health External Planned Provider: [facility] DCP follow-up note: CM RECEIVED ORDER TO CALL ADULT PROTECTIVE SERVICES AND SPEAK TO PT TO SEE IF HE WILL AGREE TO GO TO [facility] RE[facility]. CM SPOKE TO PT IN ROOM, DISCUSSED ORDER AND AVAILABILITY OF REHAB SERVICES AND [facility] FACILITIES. PT REPORTS HE IS NOT GOING TO [facility] OR REHAB IN A NURSING FACILITY. PT STATES HE WANTS TO GO HOME AND WILL ACCEPT HIS HOME HEALTH AGAIN. PT STATES HE HAS TWO FRIENDS THAT WILL BE HELPING HIM NEEDED AT HOME. CM EXPLORED THIS WITH PT; PT REPORTS NONE WILL BE ACTUALLY LIVING WITH HIM, BUT THE NEIGHBOR NEXT DOOR WILL COME IMMEDIATELY IF NEEDED; PT REPORTS HIS OTHER FRIEND, NOE, LIVES "MINUTES" AWAY AND IS AVAILABLE TO ASSIST NEEDED. CM DISCUSSED CALL TO ADULT PROTECTIVE SERVICES, PT REPORTS UNDERSTANDING OF ADULT PROTECTIVE SERVICES BUT INSISTS HE IS OK TO DISCHARGE HOME. CM CALLED [facility]ULT PROTECTIVE SERVICES [facility]OT[facility], , SPOKE TO BRENT AND PROVIDED REPORT THAT PT IS UNABLE TO CARE FOR HIMSELF AT HOME, LIVES ALONE, IS WEAK, ON OUTPATIENT DIALYSIS 3 DAYS PER WEEK AND HAS DIAGNOSIS OF DEMENTIA. PT CONTINUES TO REPORT PLAN TO GO HOME ALONE, REPORTS HAVING ASSISTANCE OF TWO FRIENDS AND WANTS HOME HEALTH WITH [facility]. RHIANNON HAS CALLED [facility]. FOR DISCHARGE HOME, NOTIFY [facility] AT [phone], FAX DISCHARGE INFORMATION TO [facility] AT [phone]. PT REPORTS FRIEND TO PICK HIM UP FOR TRANSPORT HOME. Elie Broderick, CASE MANAGEMENT
[2017-04-29 16:04] VITALS: BP 115/45
--- NOTE | 2017-04-29 19:23 | NUR ---
PT IN BED RESTING QUIETLY. GAVE PT ICE CREAM PER REQUEST. DENIES ANY OTHER NEEDS AT THIS TIME. WILL CTM.
--- NOTE | 2017-04-29 20:00 | NUR ---
PT HAS IV ROCEPHIN ORDERED. WENT TO GIVE IT TO PT AND HE STATED THEY HAD TAKEN OUT HIS IV EARLIER ON DAY SHIFT AND TOLD HIM THAT THEY WOULD NOT STICK HIM AGAIN. PT HAS HEMISPLIT BUT PERMISSION HAS NOT BEEN GIVEN TO ACCESS IT. PT REFUSED A NEW IV. DOCUMENTED AND WILL PASS ON IN REPORT.
[2017-04-29 21:19] VITALS: BP 127/66
--- NOTE | 2017-04-29 23:24 | NUR ---
Dialysis Coordinator: [facility] MWF am. EMILY HAMMONDS.
[2017-04-30 01:58] VITALS: BP 101/52
--- NOTE | 2017-04-30 03:53 | NUR ---
PT C/O PAIN IN LOWER RIGHT ARM. HAS REDNESS AND SWELLING BELOW NEW FISTULA HE GOT A WEEK AGO. FISTULA SITE LOOKS GOOD. NO WARMTH. PULSE FELT. ARM ELEVATED AND PRN PAIN MEDICATION GIVEN. VSS. WILL CONTINUE TO MONITOR AND WILL PASS ON IN REPORT.
[2017-04-30 05:10] VITALS: BP 112/54
[2017-04-30 05:50] LABS: BASOPHILS 0 % (0-2); EOSINOPHILS 5.9 % (0-7); HEMATOCRIT 30.9 % (42.0-54.0); HEMOGLOBIN 10.1 g/dL (13.5-17.5); IMMATURE GRANULOCYTES 0.3 % (0-5); LYMPHOCYTES 13.4 % (15-50); MCH 31.5 pg (26.0-34.0); MCHC 32.7 g/dL (31.0-37.0); MCV 96.3 fL (80.0-100.0); MEAN PLATELET VOLUME 9.6 fL (7.4-10.4); MONOCYTES 9.1 % (2-11); NEUTROPHILS 71.3 % (40-80); PLATELET COUNT 173 10x3/uL (130-400); RBC 3.21 10x6/uL (4.20-6.10); WBC 6.6 10x3/uL (4.8-10.8)
[2017-04-30 06:14] LABS: ANION GAP 19.2 mmol/L (8-16); CALCIUM 8.4 mg/dL (8.5-10.1); CARBON DIOXIDE 24.5 mmol/L (21.0-32.0); POTASSIUM - SERUM 3.7 mmol/L (3.5-5.1)
--- NOTE | 2017-04-30 06:19 | NUR ---
FSBS 141. NO HUMULIN GIVEN PER SLIDING SCALE. DAILY 20 UNITS OF NPH GIVEN PER ORDER. BREATHING EVEN AND UNLABORED. BED IN LOW POSITION, CALL LIGHT WITHIN REACH. WILL CTM.
[2017-04-30 08:10] VITALS: BP 170/47
--- NOTE | 2017-04-30 09:00 | NUR ---
REC'D IN BED WITH EYES CLOSED EASILY AROUSED WHEN NAME IS CALLED. RESP EVEN AND UNLABORED WITH NO DISTRESS NOTED. CAN EXPRESS NEEDS AND WANTS. ASSESSMENT COMPLETED. NO IV ACCESS NOTED AT THIS TIME.. C/L I REACH AT BEDSIDE.
--- NOTE | 2017-04-30 11:12 | NUR ---
Nutrition follow-up: Diet: Renal ADA PO intake 75-100% of meals labs reviewed Wt: 181# PO intake good at this time. RDN following.
[2017-04-30 11:18] VITALS: BP 111/48
--- NOTE | 2017-04-30 16:59 | NUR ---
Patient Name: MARC CHADWICK Encounter No: [id number] : 1945 Primary Insurance: MEDICARE A & B Anticipated DC Date: Planned Disposition: Home with Home Health External Planned Provider: [facility] DCP follow-up note: RHIANNON RECEIVED CALL FROM JESUS CURRAN OF ADULT PROTECTIVE SERVICES. JESUS REPORTS HE WILL SEE PT IN THE HOSPITAL TODAY, 04-30-17, AFTER LUNCH AND WILL [facility] RECORDS FROM . RHIANNON HAS CALLED [facility] HOTLINE. FOR DISCHARGE HOME, NOTIFY [facility] AT [phone], FAX DISCHARGE INFORMATION TO [facility] AT [phone]. PT REPORTS FRIEND TO PICK HIM UP FOR TRANSPORT HOME. Elie Broderick, CASE MANAGEMENT
--- NOTE | 2017-04-30 19:51 | NUR ---
PT IN BED RESTING QUIELTY. BREATHING EVEN AND UNLABORED. BED IN LOW POSITION, CALL LIGHT WITHIN REACH. WILL CTM.
[2017-04-30 20:19] VITALS: BP 102/39
--- NOTE | 2017-04-30 21:31 | NUR ---
FSBS 238. 4 UNITS OF HUMULIN GIVEN PER SLIDING SCALE ORDER. DENIES ANY OTHER NEEDS AT THIS TIME. BED IN LOW POSITION, CALL LIGHT WITHIN REACH. WILL CTM.
[2017-05-01 00:38] VITALS: BP 110/52
[2017-05-01 04:57] VITALS: BP 96/31
[2017-05-01 05:24] LABS: CALCIUM 8.7 mg/dL (8.5-10.1); CARBON DIOXIDE 30.5 mmol/L (21.0-32.0); PHOSPHOROUS 6.9 mg/dL (2.5-4.9); POTASSIUM - SERUM 3.5 mmol/L (3.5-5.1)
[2017-05-01 05:27] LABS: CREATININE - SERUM 7.5 mg/dL (0.6-1.3)
[2017-05-01 05:31] LABS: LYMPHOCYTES 18.8 % (15-50); MCH 30.7 pg (26.0-34.0); MEAN PLATELET VOLUME 9.6 fL (7.4-10.4); NEUTROPHILS 70.7 % (40-80)
[2017-05-01 05:34] LABS: HEMATOCRIT 44.2 % (42.0-54.0); HEMOGLOBIN 14.6 g/dL (13.5-17.5); MCV 93.1 fL (80.0-100.0); PLATELET COUNT 119 10x3/uL (130-400); RBC 4.75 10x6/uL (4.20-6.10); WBC 4.6 10x3/uL (4.8-10.8)
[2017-05-01 08:00] VITALS: BP 105/58
--- NOTE | 2017-05-01 08:30 | NUR ---
AM ROUNDS - PT IS IN BED AND APPEARS TO BE SLEEPING AT THIS TIME WITH EQUAL AND NON LABORED BREATHING. RIGHT CHEST HEMOSLPIT. PT REFUSES AN IV. PT IS A RESERVE RIGHT ARM. A&O. BED AT LOWEST POSTION. CALL BLOOM IN USE/REACH. SIDE RAILS UP X2. WILL COTNIUE TO MONITOR
--- NOTE | 2017-05-01 09:14 | NUR ---
Patient Name: MARC CHADWICK Encounter No: [id number] : 1945 Primary Insurance: MEDICARE A & B Anticipated DC Date: Planned Disposition: Home with Home Health External Planned Provider: [facility] DCP follow-up note: CM STILL AWAITING ARRIVAL OF APS WORKER JESUS CURRAN TO MEET WITH PT. CM FAXED HOSPITAL UPDATE TO JESUS CURRAN OF [facility]ULT [facility] AT [phone]. CM HAS CALLED APS HOTLINE. FOR DISCHARGE HOME, NOTIFY [facility] AT [phone], FAX DISCHARGE INFORMATION TO [facility] AT [phone]. PT REPORTS FRIEND TO PICK HIM UP FOR TRANSPORT HOME. Elie Broderick, CASE MANAGEMENT
[2017-05-01 12:00] VITALS: BP 91/39
--- NOTE | 2017-05-01 15:26 | NUR ---
PT IN BED AT THIS TIME. STATES HE DOES NOT NEEDS ANYTHING AT THIS TIME. WILL CONTINUE TO MONITOR
[2017-05-01 16:00] VITALS: BP 125/56
[2017-05-01 20:00] VITALS: BP 149/66
--- NOTE | 2017-05-01 23:00 | NUR ---
SPOKE WITH PT ABOUT NEED FOR IV ANTIBIOTIC. PT ALLOWED AN IV TO BE SITED. 22G IV SITED TO LEFT FOREARM. IV ROCEPHIN INFUSING.
[2017-05-02] VITALS: BP 126/58
[2017-05-02 04:00] VITALS: BP 124/56
[2017-05-02 05:48] LABS: BASOPHILS 0.2 % (0-2); EOSINOPHILS 6.3 % (0-7); IMMATURE GRANULOCYTES 0.4 % (0-5); LYMPHOCYTES 21.6 % (15-50); MCH 31.8 pg (26.0-34.0); MCHC 33.3 g/dL (31.0-37.0); MEAN PLATELET VOLUME 9.1 fL (7.4-10.4); MONOCYTES 8.1 % (2-11); NEUTROPHILS 63.4 % (40-80); RDW 13.8 % (11.5-14.5); WBC 5.6 10x3/uL (4.8-10.8)
[2017-05-02 05:52] LABS: HEMATOCRIT 31.2 % (42.0-54.0); HEMOGLOBIN 10.4 g/dL (13.5-17.5); MCV 95.4 fL (80.0-100.0); PLATELET COUNT 170 10x3/uL (130-400); RBC 3.27 10x6/uL (4.20-6.10)
[2017-05-02 06:15] LABS: ANION GAP 16.9 mmol/L (8-16); CALCIUM 8.5 mg/dL (8.5-10.1); CARBON DIOXIDE 26.8 mmol/L (21.0-32.0); POTASSIUM - SERUM 3.7 mmol/L (3.5-5.1)
[2017-05-02 06:17] LABS: CREATININE - SERUM 9.4 mg/dL (0.6-1.3)
[2017-05-02 08:00] VITALS: BP 112/51
--- NOTE | 2017-05-02 10:00 | NUR ---
REPORT RECEIVED. ASSESSMENT COMPLETED PER FLOW SHEET. WANTING TO SLEEPT THIS MORNING. SAYS HE DOESN'T SLEEP AT NIGHT. NO NEEDS VOICED. WILL CONTINUE TO MONITOR.
[2017-05-02 12:00] VITALS: BP 135/61
--- NOTE | 2017-05-02 19:33 | NUR ---
PT IN BED RESTING QUIELTY. BREATHING EVEN AND UNLABORED. BED IN LOW POSITION, CALL LIGHT WITHIN REACH. WILL CTM.
[2017-05-02 20:00] VITALS: BP 102/53
[2017-05-03] VITALS: BP 90/48
[2017-05-03 04:05] LABS: BASOPHILS 0.4 % (0-2); EOSINOPHILS 6.6 % (0-7); HEMATOCRIT 32.1 % (42.0-54.0); HEMOGLOBIN 10.7 g/dL (13.5-17.5); IMMATURE GRANULOCYTES 0.4 % (0-5); LYMPHOCYTES 24.3 % (15-50); MCH 31.8 pg (26.0-34.0); MCHC 33.3 g/dL (31.0-37.0); MCV 95.5 fL (80.0-100.0); MEAN PLATELET VOLUME 9.4 fL (7.4-10.4); MONOCYTES 8.8 % (2-11); NEUTROPHILS 59.5 % (40-80); PLATELET COUNT 165 10x3/uL (130-400); RBC 3.36 10x6/uL (4.20-6.10); RDW 14.1 % (11.5-14.5); WBC 5.1 10x3/uL (4.8-10.8)
[2017-05-03 04:16] LABS: ANION GAP 16.4 mmol/L (8-16); CALCIUM 8.8 mg/dL (8.5-10.1); CREATININE - SERUM 7.1 mg/dL (0.6-1.3); POTASSIUM - SERUM 3.4 mmol/L (3.5-5.1)
--- NOTE | 2017-05-03 05:48 | NUR ---
FSBS 184. 2 UNITS OF HUMULIN REG GIVEN PER SLIDING SCALE. 25 UNITS HUMULIN NPH GIVEN PER ORDER. BREATHING EVEN AND UNLABORED. BED IN LOW POSITION, CALL LIGHT WITHIN REACH. WILL CTM.
--- NOTE | 2017-05-03 07:52 | NUR ---
AM ROUNDS - PT IN BED AND AWAKE AT THIS TIME. NO NEEDS. LEFT FA, SL. RESERVE RIGHT ARM. BED AT LOWEST POSITION. CALL BLOOM IN USE/REACH. WILL CONTINUE TO MONITOR
[2017-05-03 08:00] VITALS: BP 97/48
[2017-05-03 12:00] VITALS: BP 90/40
[2017-05-03 16:00] VITALS: BP 94/42
--- NOTE | 2017-05-03 19:41 | NUR ---
RECEIVED REPORT, WILL ASSUME CARE OF PT, PT ASKING FOR ICE CREAM, EXPLAINED HE IS ON RENAL DIET, SHOULDN'T HAVE MILK, DENIES ANY OTHER NEEDS AT THIS TIME, BED IS LOW, SRX2, CALL LIGHT IN REACH, WILL CONTINUE PLAN OF CARE
[2017-05-03 21:01] VITALS: BP 143/54
--- NOTE | 2017-05-03 21:28 | NUR ---
COMPLAINS OF R.ARM PAIN, ASKING FOR PAIN MEDS, GAVE NORCO7.5 ORDER
[2017-05-04 00:52] VITALS: BP 150/63
[2017-05-04 05:36] VITALS: BP 156/87
--- NOTE | 2017-05-04 07:20 | NUR ---
PT IN BED, WITH EYES CLOSED, EASILY AROUSES TO VOICE. RESP EVEN AND UNLABORED, LT FA IV SL. PT DENIES ANY NEEDS AT THIS TIME. CALL LIGHT IN REACH, NAD NOTED, WILL CONTINUE PLAN OF CARE.
--- NOTE | 2017-05-04 08:27 | NUR ---
AM MEDS GIVEN, PT UP TO SIDE OF BED, EATING BREAKFAST. DENIES ANY NEEDS AT THIS TIME, EXPLAINED THE PLAN FOR TODAY. NAD NOTED, CALL LIGHT IN REACH, WILL CONTINUE PLAN OF CARE.
[2017-05-04 08:42] VITALS: BP 91/49
--- NOTE | 2017-05-04 09:49 | NUR ---
PT TRANSFERED TO DIALYSIS VIA BED, NAD NOTED.
--- NOTE | 2017-05-04 12:24 | NUR ---
Nutrition follow-up: Diet: Renal ADA consistent CHO PO intake 100% of most meals labs reviewed PO intake remains good at this time. RDN following.
--- NOTE | 2017-05-04 13:54 | NUR ---
TX COMPLETE. 1200CC OFF. HYPOTENSIVE. AWAKE, ALERT, SLIGHT CONFUSION. DRESSING CHANGED.
--- NOTE | 2017-05-04 13:57 | NUR ---
PT TRANSFERED BACK FROM DIALYSIS VIA BED, NAD NOTED.
--- NOTE | 2017-05-04 14:24 | NUR ---
ADMINISTERED NORCO 7.5MG FOR PAIN LEVEL OF 8/10. PT UP TO SIDE OF BED, DENIES ANY OTHER NEEDS AT THIS TIME. CALL LIGHT IN REACH, NAD NOTED, WILL CONTINUE PLAN OF CARE.
--- NOTE | 2017-05-04 17:40 | NUR ---
Patient Name: MARC CHADWICK Encounter No: [id number] : 1945 Primary Insurance: MEDICARE A & B Anticipated DC Date: 05-05-2017 Planned Disposition: [facility] Facility External Planned Provider: [facility] DCP follow-up note: JESUS CURRAN AND RICHELLE COBURN, ADULT PROTECTIVE SERVICES WORKERS, ARRIVED AND INTERVIEWED PT IN ROOM. JESUS CURRAN ADVISED THAT APS IS NOT TAKING HOLD ON PT AT THIS TIME. RICHELLE COBURN SPOKE TO WORKER AT LENGTH AND MANAGED TO GET AGREEMENT OF PT TO ENTER [facility] FACILITY FOR REHAB ONLY. PT CONTINUED TO INSIST HE COULD GO HOME WITH HOME HEALTH BUT THEN PT CHOSE [facility] OR [facility] AND REFUSED THE [facility]. PT UNDERSTANDS THAT THE [facility] IS THE ONLY [facility] ADMINSTR[facility] CONTRACTED FACLITY IN [place] AND CM ALSO ADVISED PT AND ADULT PROTECTIVE SERVICES WORKERS THAT PT HAD RAN OUT OF REHAB DAYS DURING HIS LAST STAY AND WAS USING [facility] CONTRACT DAYS AT THE [facility]. PT SIGNED CONSENT FOR [facility]. CM SENT REFERRALS TO [facility] FOR REHAB SERVICES. ADULT PROTECTIVE SERVICES IS NOT TAKING A HOLD ON PATIENT. CM WAITING ADMISSION DETERMINATIONS FROM [facility]; CM ALSO WAITING TO SEE IF PT HAS ANY REMAINING MEDICARE REHAB DAYS AVAILABLE AT THIS TIME. Elie Broderick, CASE MANAGEMENT
[2017-05-04 17:42] VITALS: BP 119/55
--- NOTE | 2017-05-04 19:23 | NUR ---
RECEIVED REPORT, WILL ASSUME CARE OF PT, PT SLEEPING, BED IS LOW, SRX2 CALL LIGHT IN REACH, WILL CONTINUEPLAN OF CARE
[2017-05-04 20:53] VITALS: BP 105/53
[2017-05-05] VITALS (7 sets, daily range): BP systolic 98–136; BP diastolic 37–56
--- NOTE | 2017-05-05 02:42 | NUR ---
ASSESSMENT COMPLETE, SEE FLOWSHEET, PT SLEEPING, BED IS LOW, SRX2, CALL LIGHT IN REACH, WILL CONTINUE PLAN OF CARE
[2017-05-05 05:10] LABS: BASOPHILS 0.2 % (0-2); HEMATOCRIT 31.1 % (42.0-54.0); HEMOGLOBIN 10.5 g/dL (13.5-17.5); IMMATURE GRANULOCYTES 0.3 % (0-5); LYMPHOCYTES 23.2 % (15-50); MCH 31.5 pg (26.0-34.0); MCHC 33.8 g/dL (31.0-37.0); MCV 93.4 fL (80.0-100.0); MEAN PLATELET VOLUME 9.2 fL (7.4-10.4); MONOCYTES 8.2 % (2-11); NEUTROPHILS 60.1 % (40-80); PLATELET COUNT 170 10x3/uL (130-400); RBC 3.33 10x6/uL (4.20-6.10); RDW 13.8 % (11.5-14.5); WBC 6.5 10x3/uL (4.8-10.8)
[2017-05-05 05:26] LABS: ANION GAP 15.1 mmol/L (8-16); CALCIUM 8.7 mg/dL (8.5-10.1); CARBON DIOXIDE 28.4 mmol/L (21.0-32.0); CREATININE - SERUM 9.6 mg/dL (0.6-1.3); PHOSPHOROUS 7.9 mg/dL (2.5-4.9); POTASSIUM - SERUM 3.5 mmol/L (3.5-5.1)
--- NOTE | 2017-05-05 07:10 | NUR ---
PT IN BED, WITH EYES CLOSED, RESP EVEN AND UNLABORED. NAD NOTED, CALL LIGHT IN REACH, BED LOW AND WHEELS LOCKED, WILL CONTINUE PLAN OF CARE.
--- NOTE | 2017-05-05 08:18 | NUR ---
AM MEDS GIVEN. PT FIXING TO EAT BREAKFAST, DENIES ANY NEEDS, CALL LIGHT IN REACH, NAD NOTED.
--- NOTE | 2017-05-05 11:28 | NUR ---
Patient Name: MARC CHADWICK Encounter No: [id number] : 1945 Primary Insurance: MEDICARE A & B Anticipated DC Date: 05-05-2017 Planned Disposition: [facility] External Planned Provider: [facility], MEDICARE REHAB BED DCP follow-up note: CM CALLED [facility], , R[facility]OL[facility] WAS IN MEETING, CM LEFT MESSAGE REQUESTING RETURN CALL REGARDING REHAB REFERRAL PREVIOUSLY SENT. CM CALLED [facility], , [facility] STILL EVALUATING PT. THEE ARRIVED TO MEET WITH PT AND EVALUATE FOR [facility] AND DISCUSS WITH PT THE OPTION OF GOING TO THE [facility] WHERE HE HAS THE AVAILABILITY OF IN CONTRACT SERVICES. PT HAS 80 MEDICARE REHAB DAYS REMAINING. CM WAITING ON [facility] TO MAKE ADMISSION DETERMINATIONS. THERE IS NO HOLD BY ADULT PROTECTIVE SERVICES. Elie Broderick, CASE MANAGEMENT
--- NOTE | 2017-05-05 11:29 | NUR ---
BLOOD SUGAR OF 160, 2 UNITS OF HUMULIN R GIVEN PER S/S.
--- NOTE | 2017-05-05 13:25 | NUR ---
PT AWAKE IN BED AT THIS TIME, 1300 MEDICATION ADMINISTERED. PT REPOSITIONED FOR COMFORT, CALL LIGHT IN REACH, WILL CONTINUE PLAN OF CARE.
--- NOTE | 2017-05-05 15:40 | NUR ---
PT IN BED, WITH EYES CLOSED, SNORRING. NAD NOTED, CALL LIGHT IN REACH.
--- NOTE | 2017-05-05 20:08 | NUR ---
PT IN BED WATCHING TELEVISION. DENIES NEEDS AT THIS TIME.
[2017-05-06] VITALS: BP 110/62
--- NOTE | 2017-05-06 03:50 | NUR ---
PT IN BED RESTING. EVEN AND UNLABORED RESPIRATIONS NOTED. WILL CONTINUE TO MONITOR.
[2017-05-06 04:00] VITALS: BP 106/52
--- NOTE | 2017-05-06 05:14 | NUR ---
PT RESTING COMFORTABLY, NO NEEDS. CONTINUE TO MONITOR CLOSELY.
[2017-05-06 06:09] LABS: ANION GAP 20.3 mmol/L (8-16); CALCIUM 8.9 mg/dL (8.5-10.1); CARBON DIOXIDE 24.3 mmol/L (21.0-32.0); CREATININE - SERUM 11.8 mg/dL (0.6-1.3); PHOSPHOROUS 8.8 mg/dL (2.5-4.9); POTASSIUM - SERUM 3.6 mmol/L (3.5-5.1)
--- NOTE | 2017-05-06 07:45 | NUR ---
INTRODUCED MYSELF TO PT PRIMARY RN FOR TODAYS SHIFT. PT A&O SITTING UP IN BED RESTING QUIETLY. RR NONLABORED ON RA. PT STATES HE SLEPT WELL AND DENIES ANY CURRENT PAIN OR NEEDS AT THIS TIME. CL IN REACH, BED IN LOWEST, SIDE RAILS X2. WILL CPOC.
--- NOTE | 2017-05-06 09:22 | NUR ---
MORNING MEDICATIONS GIVEN AND PT SWALLOWED WITHOUT ANY DIFFICULTIES. PT LEAVING NOW FOR DIALYSIS VIA W/C. NO CURRENT NEEDS. WILL CPOC.
[2017-05-06 10:31] VITALS: BP 109/50
--- NOTE | 2017-05-06 12:09 | NUR ---
INSULIN AND FOOD BINDERS HELD PT IS DOWN IN DIALYSIS AND WILL NOT GET TO EAT LUNCH. WILL PROVIDE WHEN HE RETURNS IF HE WANTS TO EAT. NO CURRENT NEEDS. WILL CPOC.
--- NOTE | 2017-05-06 12:20 | NUR ---
PT BACK FROM DIALYSIS AND VERY SLOW TO RESPOND AND STARING OFF LIKE SPACED OUT. PT IS A&O AND CAN ANSWER ALL QUESTIONS BUT IS JUST BEHAVING DIFFERENT. PT STATES AFTER DIALYSIS HE ALWAYS FEELS THIS WAY VERY DIZZY AND "FUZZY" VSS ASSISTED PT UP TO EDGE OF BED AND ENCOURAGED HIM TO EAT AND PROVIDED HIM WITH HIS MEDICATIONS. WILL CTM.
--- NOTE | 2017-05-06 16:17 | NUR ---
FSBS 195 PROVIDED PT WITH HUMLIN R 25UNITS AND DID NOT PROVIDE SS PT STATES HE DOESNT NORMALLY DO THAT ONE. PT C/O THROBBING PAINS IN HIS R.ARM REQUESTING AND PROVIDED WITH PRN PAIN MEDICATION. PT SITTING UP IN BED READY TO EAT DINNER. CL IN REACH, BED IN LOWEST, SIDE RAILS X2. WILL CPOC.
[2017-05-06 17:10] VITALS: BP 123/64
--- NOTE | 2017-05-06 19:33 | NUR ---
PT IN BED RESTING QUIETLY. BREATHING EVEN AND UNLABORED. BED IN LOW POSITION, CALL LIGHT WITHIN REACH. WILL CTM.
[2017-05-06 20:27] VITALS: BP 109/48
[2017-05-07 00:07] VITALS: BP 122/53
[2017-05-07 05:13] VITALS: BP 95/40
--- NOTE | 2017-05-07 07:52 | NUR ---
AM ROUNDS COMPLETED. INTRODUCED MYSELF TO PT PRIMARY RN FOR TODAYS SHIFT. PT A&O AND WANTING TO BE DISCHARGED HOWEVER WAITING ON PLACEMENT FOR ACCEPTANCE. PT IS NOT WANTING TO GO TO A NH OR SNF SO MAY END UP BEING DISCHARGED HOME IF HE REFUSES PLACEMENT. PT DENIES ANY CURRENT NEEDS AT THIS TIME. WILL DISCUSS WITH CM AND CPOC.
[2017-05-07 08:40] VITALS: BP 98/46
--- NOTE | 2017-05-07 08:41 | NUR ---
MORNING MEDICATIONS GIVEN AND PROVIDED PT WITH A PRN PAIN PILL FOR HIS R.ARM PAIN. PT AGREES THAT HE WILL NEED HELP WITH HIS MEDICATIONS IF HE GOES HOME BUT HE REFUSES ANY NH PLACEMENT AND DEMANDS TO BE INDEPENDENT AT HOME. WILL CHECK WITH CM ABOUT HOME HEALTH. NO FURTHER NEEDS AT THIS TIME. WILL CPOC.
[2017-05-07] MEDS ORDERED: HUMULIN N100 U/ML SC (11:00)
--- NOTE | 2017-05-07 11:04 | NUR ---
Patient Name: MARC CHADWICK Encounter No: [id number] : 1945 Primary Insurance: MEDICARE A & B Anticipated DC Date: 05-07-2017 Planned Disposition: Home with Home Health External Planned Provider: [facility] DCP follow-up note: CM SPOKE TO THEE WHO MET WITH PT IN ROOM. PT IS IN HIS MEDICARE COPAY DAYS AND REPORTS HE CANNOT AFFORD TO PAY ANY COPAY FOR REHAB. PT HAS INFORMED MO THAT HE IS NOT GOING TO THE [facility] OR ANY OTHER NH FACILITY FOR NH CONTRACTED CARE SERVICES. PT ADVISED HE IS GOING HOME WITH ASSISTANCE OF FRIENDS AND HOME HEALTH. MO WILL CONTINUE TO SEEK SKILLED CARE PLACEMENT OPTIONS FOR PT. CM RECEIVED DISCHARGE ORDER IN NURSING MESSAGE, MET WITH PT IN ROOM TO DISCUSS DISCHARGE PLAN AND NEEDS. PT REPORTS HE IS NOT GOING TO A PENITENTIARY OR REHAB. PT UNDERSTANDS AVAILABILITY OF REHAB, BUT CANNOT AFFORD THE 20% COPAY. PT REPORTS HE IS WALKING WELL HE WAS BEFORE HE GOT SICK AND WANTS TO GO HOME. PT UNDERSTANDS THE AVAILABILITY OF NH CONTRACT SERVICES BUT STATES HE HAS A HOME AND TWO DOGS, HE IS GOING HOME. PT WOULD LIKE CM TO RESUME HIS HOME HEALTH WITH [facility] TO ASSIST WITH MEDICATION MANAGEMENT; PT STATES THAT IS THE ONLY HELP THAT HE NEEDS. CM NOTIFIED RENAL NURSE TELMA. CM CALLED AND NOTIFIED JESUS OF ADULT PROTECTIVE SERVICES VIA MESSAGE AT [phone]. CM CALLED [facility] AT [phone], SPOKE TO SULLY WHO REPORTS THEY WILL ADMIT PT FOR HOME HEALTH TOMORROW THEY HAD ORDERS BUT NEVER ADMITTED PRIOR TO PT GOING TO HOSPITAL. CM FAXED REFERRAL FOR HOME HEALTH TO [facility] AT [phone]. PT IS NOW CALLING FRIENDS TO ARRANGE TRANSPORTATION HOME. RESEARCH KENNEL SUPERVISOR NOTIFIED. FOR DISCHARGE, FAX DISCHARGE INFORMATION TO [facility] AT [phone] AND JESUS OF [facility]ULT [facility] AT [phone]. Elie Broderick, CASE MANAGEMENT
--- NOTE | 2017-05-07 12:27 | NUR ---
D/C PTS L.WRIST PIV WITH CATHETER TIP FULLY INTACT. DISCHARGE TEACHING PROVIDED AND PAPERS SIGNED. PT VERBALIZED UNDERSTANDING AND DENIES ANY QUESTIONS OR CONCERNS. PT IS CALLING FOR HIS RIDE AND HAS BELONGINGS COLLECTED AND READY TO GO.
--- NOTE | 2017-05-07 13:14 | NUR ---
PT LEFT AND HAS ALL HIS BELONGINGS. NO FURTHER QUESTIONS OR NEEDS.
== END 2017-05-07 13:16 | disposition home health service (06) | DRG 602 ==
LOC: D.ER 16:06 → D.M2 18:53
PROVIDERS: Emergency Medicine; Internal Medicine Nephrology; ADMIT Internal Medicine Nephrology
DX: L03.113 Cellulitis of right upper limb (principal); N18.6 End stage renal disease; I12.0 Hypertensive chronic kidney disease with stage 5 chronic kidney disease or end stage renal disease; L76.34 Postprocedural seroma of skin and subcutaneous tissue following other procedure; E11.22 Type 2 diabetes mellitus with diabetic chronic kidney disease; Z99.2 Dependence on renal dialysis; Z86.73 Personal history of transient ischemic attack (TIA), and cerebral infarction without residual deficits; Z95.0 Presence of cardiac pacemaker; I25.10 Atherosclerotic heart disease of native coronary artery without angina pectoris; Z95.1 Presence of aortocoronary bypass graft; D63.1 Anemia in chronic kidney disease; E78.5 Hyperlipidemia, unspecified; R62.7 Adult failure to thrive; Y83.8 Other surgical procedures as the cause of abnormal reaction of the patient, or of later complication, without mention of misadventure at the time of the procedure

== ENCOUNTER 2017-06-08 15:25 | Emergency (ER) | payer MEDICARE ==
[2017-04-27 11:22] VITALS: BMI 30.6
== END 2017-06-08 19:10 | disposition home or self-care (01) ==
LOC: D.ER 15:25
DX: S30.0XXA Contusion of lower back and pelvis, initial encounter (principal); W19.XXXA Unspecified fall, initial encounter; Y93.89 Activity, other specified; Y92.019 Unspecified place in single-family (private) house as the place of occurrence of the external cause; S22.089A Unspecified fracture of T11-T12 vertebra, initial encounter for closed fracture; S32.019A Unspecified fracture of first lumbar vertebra, initial encounter for closed fracture; E11.9 Type 2 diabetes mellitus without complications; I12.0 Hypertensive chronic kidney disease with stage 5 chronic kidney disease or end stage renal disease; N18.6 End stage renal disease

== ENCOUNTER 2017-07-03 14:06 | Emergency (ER) | payer MEDICARE ==
[2017-04-27 11:22] VITALS: BMI 30.6
[2017-07-03 14:46] LABS: BASOPHILS 0.2 % (0-2); EOSINOPHILS 5.3 % (0-7); HEMATOCRIT 34.8 % (42.0-54.0); HEMOGLOBIN 11.3 g/dL (13.5-17.5); IMMATURE GRANULOCYTES 0.3 % (0-5); LYMPHOCYTES 24.5 % (15-50); MCH 31.6 pg (26.0-34.0); MCHC 32.5 g/dL (31.0-37.0); MCV 97.2 fL (80.0-100.0); MEAN PLATELET VOLUME 9.6 fL (7.4-10.4); MONOCYTES 8.1 % (2-11); NEUTROPHILS 61.6 % (40-80); RBC 3.58 10x6/uL (4.20-6.10); RDW 14.8 % (11.5-14.5); WBC 5.8 10x3/uL (4.8-10.8)
[2017-07-03 14:52] LABS: PLATELET COUNT 207 10x3/uL (130-400)
[2017-07-03 15:03] LABS: ALBUMIN 3.6 g/dL (3.4-5.0); ANION GAP 15.4 mmol/L (8-16); BILIRUBIN - TOTAL 0.2 mg/dL (0.2-1.3); CALCIUM 8.3 mg/dL (8.5-10.1); CARBON DIOXIDE 28.5 mmol/L (21.0-32.0); CREATININE - SERUM 6.5 mg/dL (0.6-1.3); POTASSIUM - SERUM 3.9 mmol/L (3.5-5.1); PROTEIN - SERUM 6.8 g/dL (6.4-8.2)
[2017-07-03 16:29] LABS: INR 1.07 (0.85-1.17); PROTIME 13.5 SECONDS (11.6-15.0)
[2017-07-03 19:40] LABS: APPEARANCE HAZY (CLEAR); BILIRUBIN NEGATIVE (NEGATIVE); COLOR YELLOW (YELLOW); GLUCOSE 50 mg/dL (NEGATIVE); KETONE NEGATIVE (NEGATIVE); NITRITE NEGATIVE (NEGATIVE); PROTEIN 1+ mg/dL (NEGATIVE); SPECIFIC GRAVITY 1.025 (1.005-1.020); UROBILINOGEN NORMAL (NORMAL)
[2017-07-03 19:41] LABS: BACTERIA MANY /hpf (NONE SEEN); WHITE CELLS - URINE >50 /hpf (0-5)
== END 2017-07-03 20:35 | disposition home or self-care (01) ==
LOC: D.ER 14:06
PROVIDERS: Family Medicine; Nurse Practitioner Family
DX: R53.1 Weakness (principal); N39.0 Urinary tract infection, site not specified; Z99.2 Dependence on renal dialysis; I50.9 Heart failure, unspecified; I12.9 Hypertensive chronic kidney disease with stage 1 through stage 4 chronic kidney disease, or unspecified chronic kidney disease; N18.9 Chronic kidney disease, unspecified; F03.90 Unspecified dementia, unspecified severity, without behavioral disturbance, psychotic disturbance, mood disturbance, and anxiety; Z95.0 Presence of cardiac pacemaker; I45.10 Unspecified right bundle-branch block

== ENCOUNTER 2017-09-22 08:20 | Day surgery (SDC) | payer MEDICARE, OTHER ==
[~2017-09-22] VITALS: Ht 165.1 cm; Wt 77.1 kg
--- NOTE | ~2017-09-22 | OP ---
PATIENT NAME: MARC CHADWICK MEDICAL RECORD: [id number] :[birth year] LOCATION:D[facility] ADMISSION DATE: SURGEON: JESUS CHEUNG MD DATE OF OPERATION: 09/22/2017 REFERRING PHYSICIAN: Ema Lyn MD INTERVENTIONAL ENGINEER SERGEANT: Dr. Patel. PREOPERATIVE DIAGNOSES: ESRD and inadequate function of right upper extremity brachiobasilic AV fistula. POSTOPERATIVE DIAGNOSES: ESRD and inadequate function of right upper extremity brachiobasilic AV fistula. OPERATION PERFORMED: Second of 2 planned stages and creation of a right brachial artery to translocated basilic vein AV fistula. SURGEON: Jesus Cheung MD ANESTHESIA: General endotracheal per DRIVER EXAMINER. PREOPERATIVE NOTE: Mr. Chadwick is a 72-year-old white male, patient with end-stage renal disease and diabetes. He was operated on way back in June of this year and had a Vernell type brachial basilic AV fistula created, which was intended as just the first of 2 stages and creation of a translocated basilic vein fistula. The basilic vein being located far too medial and far too deep really to provide useful dialysis access in the vast majority of the patients, unless it is adequately translocated. The patient has some mental incapacity or mental defect, I believe due to stroke and/or atherosclerotic disease and was lost to follow up and did not have his operation to translocate the basilic vein as planned in June or July, but he returned to my office in August with an unusable fistula, which though had remained patent and developed quite well. He is brought to the operating room now as an outpatient with plans to do the second stage. DESCRIPTION OF PROCEDURE: With the patient under general endotracheal anesthesia (due to poorly controlled GERD), he was placed in supine position and the right arm prepped and draped in a sterile manner. I examined him with ultrasound and confirmed the basilic vein to be well dilated greater than a centimeter in diameter from axilla to distal humerus. I made a long incision on the inner aspect of the arm and joined the transverse antecubital incision in a hockey-stick like configuration. I exposed the basilic vein and mobilized it from its confluence with the brachial veins to form the axillary vein to its anastomosis to the brachial artery. 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 The rest of the vein above that was pristine and quite nando. When completely mobilized after sparing all of the cutaneous sensory nerves possible, the vein was clamped, transected and bevelled at a point near the arterial anastomosis. It was then flushed with heparinized saline. The vein was marked with a surgical marker to help with orientation. The arterial end and arterial anastomosis was flushed with heparinized saline. The vein was placed in anterior and lateral very superficial subcutaneous tunnel and this was done with a [facility] [id number] MARC CHADWICKer and Tom weberer. The venous continuity was then restored with an end-to-end anastomosis between the bevelled ends of the vein at the site of division. This was done with 2 separate running 7-0 Prolenes with care taken to prevent purse-stringing and the end result was quite satisfactory and the suture line hemostatic with release of the occluding clamps. The fistula was functioning beautifully. Hemostasis in the wound was obtained with discrete electrocautery and a few clips and Vicryl ties. The wound was irrigated with Ancef and gentamicin solution repeatedly. The vein had been treated repeatedly with topical papaverine as well as heparinized saline. I did not place a drain, but I closed the wound with interrupted simple 3-0 Vicryl and then running intracuticular 4-0 Monocryl. The incision was sealed and closed further with Dermabond glue and dressed with Maxorb Ag, Tegaderm and Cavilon skin prep. At this point, with a functioning fistula, the patient was awakened and extubated and taken to the recovery room. Blood loss during the operation was about 5 cc and was unreplaced. All sponges, instruments and needles were accounted for. No drain was used and no surgical specimen was submitted for histopathology. PLAN: I believe the patient would best be managed at least overnight here in the hospital in an observation bed. He will most likely be able to be discharged to home into his usual dialysis unit tomorrow morning. I will plan to see him back in my office next week and I think that he should have home health referral for some wound care, at least wound checkups 3 days a week on nondialysis days for the next 2 weeks. Hopefully and I fully expect that he should be able to use this beautiful new AV fistula in 2-3 weeks. I do think that he is at some risk for repeated recurrent JA stenoses and strictures and he should have a followup angiogram in 1 month at [facility] either by Dr. Patel or myself. TRANSINT:[id number] Voice Confirmation ID: [id number] DOCUMENT ID: [id number] JESUS CHEUNG MD at 1241 CC: EMA LYN MD and CHRISTIANO PATEL MD [id number] DICTATION DATE: 09/22/17 171 INSPECTOR BICYCLE: 09/22/[address] [facility] 09/24/17 [facility] [address] [place] [address]
[2017-09-22] MEDS ORDERED: DITROPAN X10 MG/BOTT PO (09:03)
[2017-09-22] MEDS ORDERED: LASIX40 MG (09:04)
[2017-09-22] MEDS ORDERED: TOPROL XL100 MG PO (09:04)
[2017-09-22 09:10] VITALS: BP 112/63
[2017-09-22 09:46] LABS: BASOPHILS 0.4 % (0-2); EOSINOPHILS 4.6 % (0-7); HEMATOCRIT 35.8 % (42.0-54.0); HEMOGLOBIN 11.4 g/dL (13.5-17.5); IMMATURE GRANULOCYTES 0.2 % (0-5); LYMPHOCYTES 20.7 % (15-50); MCHC 31.8 g/dL (31.0-37.0); MCV 100.6 fL (80.0-100.0); MEAN PLATELET VOLUME 9.5 fL (7.4-10.4); MONOCYTES 10.3 % (2-11); NEUTROPHILS 63.8 % (40-80); PLATELET COUNT 172 10x3/uL (130-400); RBC 3.56 10x6/uL (4.20-6.10); RDW 15.8 % (11.5-14.5); WBC 5.2 10x3/uL (4.8-10.8)
[2017-09-22 10:00] LABS: ANION GAP 18.2 mmol/L (8-16); CALCIUM 8.4 mg/dL (8.5-10.1); CARBON DIOXIDE 25.5 mmol/L (21.0-32.0); CREATININE - SERUM 7.2 mg/dL (0.6-1.3); POTASSIUM - SERUM 4.7 mmol/L (3.5-5.1)
[2017-09-22 10:07] LABS: INR 1.05 (0.85-1.17); PROTIME 13.3 SECONDS (11.6-15.0)
[2017-09-22 10:08] LABS: APTT 32.3 SECONDS (22.8-39.4)
[2017-09-22] MEDS ORDERED: HYDROCODON-ACE1 EAC7 PO (16:58)
[2017-09-22 17:35] VITALS: BP 107/46
[2017-09-22 18:07] VITALS: BP 107/46; Ht 165.1 cm; Wt 77.1 kg
[2017-09-22 20:00] VITALS: BP 107/46
[2017-09-23] VITALS: BP 99/54
[2017-09-23 04:00] VITALS: BP 125/46
[2017-09-23 08:00] VITALS: BP 128/58
[2017-09-23 11:39] VITALS: BP 126/66
[2017-09-23 15:52] VITALS: BP 132/71
[2017-09-24 04:00] VITALS: BP 109/47
[2017-09-24 09:44] VITALS: BP 132/72
[2017-09-24 13:07] VITALS: BP 141/59
== END 2017-09-24 14:37 | disposition home or self-care (01) ==
LOC: D.OPS 08:20 → D.M2 16:44 → D.OPS 09-24 14:37
PROVIDERS: Internal Medicine Nephrology
DX: T82.590A Other mechanical complication of surgically created arteriovenous fistula, initial encounter (principal); E11.22 Type 2 diabetes mellitus with diabetic chronic kidney disease; N18.6 End stage renal disease; Z99.2 Dependence on renal dialysis; Z01.812 Encounter for preprocedural laboratory examination

== ENCOUNTER 2017-10-26 14:03 | Emergency (ER) | payer MEDICARE, OTHER ==
[2017-09-22 18:07] VITALS: BMI 28.4
[~2017-10-26 14:03] MED LIST changes: +HYDROCODON-ACE1 EAC7 PO; +LASIX40 MG; +TOPROL XL100 MG PO
[2017-10-26 14:23] LABS: BASOPHILS 0.3 % (0-2); EOSINOPHILS 4.6 % (0-7); HEMATOCRIT 36.4 % (42.0-54.0); HEMOGLOBIN 12.4 g/dL (13.5-17.5); IMMATURE GRANULOCYTES 0.1 % (0-5); LYMPHOCYTES 20.6 % (15-50); MCH 32.5 pg (26.0-34.0); MCHC 34.1 g/dL (31.0-37.0); MCV 95.3 fL (80.0-100.0); MEAN PLATELET VOLUME 9.6 fL (7.4-10.4); MONOCYTES 8.3 % (2-11); NEUTROPHILS 66.1 % (40-80); PLATELET COUNT 166 10x3/uL (130-400); RBC 3.82 10x6/uL (4.20-6.10); RDW 14.1 % (11.5-14.5)
[2017-10-26 14:38] LABS: ALBUMIN 3.3 g/dL (3.4-5.0); ALKALINE PHOSPHATASE 112 U/L (46-116); ALT (SGPT) 10 U/L (10-68); CALC OSMOLALITY 280 mosm/kg (275-300); CALCIUM 7.9 mg/dL (8.5-10.1); CARBON DIOXIDE 27.8 mmol/L (21.0-32.0); CHLORIDE - SERUM 99 mmol/L (98-107); CREATININE - SERUM 4.7 mg/dL (0.6-1.3); GLUCOSE 145 mg/dL (74-106); PROTEIN - SERUM 6.7 g/dL (6.4-8.2); SODIUM 138 mmol/L (136-145); UREA NITROGEN 18 mg/dL (7-18); eGFR NON AFRICAN AMERICAN 13 mL/min (90-120)
[2017-10-26 14:47] LABS: CKMB 1.6 U/L (0.0-3.6); CREATINE KINASE 60 UL (21-232); TROPONIN-I 0.024 ng/mL (0.000-0.060)
[2017-10-26 16:03] LABS: INR 1.03 (0.85-1.17); PROTIME 13.1 SECONDS (11.6-15.0)
[2017-10-26 16:04] LABS: APTT 39.4 SECONDS (22.8-39.4)
[2017-10-26 16:05] LABS: D-DIMER-QUANTITATIVE 0.95 ug/mLFEU (0.20-0.54)
[2017-10-26 16:42] LABS: APPEARANCE CLEAR (CLEAR); COLOR YELLOW (YELLOW); NITRITE NEGATIVE (NEGATIVE); PROTEIN 1+ mg/dL (NEGATIVE); SPECIFIC GRAVITY 1.015 (1.005-1.020)
[2017-10-26 16:43] LABS: BILIRUBIN NEGATIVE (NEGATIVE); GLUCOSE 500 mg/dL (NEGATIVE); KETONE NEGATIVE (NEGATIVE); UROBILINOGEN NORMAL (NORMAL)
[2017-10-26 16:50] LABS: BACTERIA FEW /hpf (NONE SEEN); EPITHELIAL CELLS OCC /hpf (0-5); RED CELLS - URINE OCC /hpf (0-5)
[2017-10-26 17:20] LABS: CHOL - HDL RATIO 4.9 ratio (2.3-4.9); LDL-HDL RATIO 2.8 ratio (1.5-3.5)
== END 2017-10-26 17:50 | disposition home or self-care (01) ==
LOC: D.ER 14:03
PROVIDERS: Emergency Medicine; Physician Assistant Medical
DX: N39.0 Urinary tract infection, site not specified (principal); R07.9 Chest pain, unspecified; I50.9 Heart failure, unspecified; N18.9 Chronic kidney disease, unspecified; F03.90 Unspecified dementia, unspecified severity, without behavioral disturbance, psychotic disturbance, mood disturbance, and anxiety; Z95.0 Presence of cardiac pacemaker; I45.10 Unspecified right bundle-branch block

== ENCOUNTER 2017-12-28 16:15 | Emergency (ER) | payer OTHER ==
[~2017-12-28] VITALS: Ht 165.1 cm; Wt 84.1 kg
[2017-12-28 16:20] VITALS: Ht 165.1 cm; Wt 84.1 kg
[2017-12-28 17:05] VITALS: BP 107/76
== END 2017-12-28 17:05 | disposition home or self-care (01) ==
LOC: D.ER 16:15
DX: T82.838A Hemorrhage due to vascular prosthetic devices, implants and grafts, initial encounter (principal); I10 Essential (primary) hypertension; Z95.0 Presence of cardiac pacemaker; Z95.1 Presence of aortocoronary bypass graft; I25.10 Atherosclerotic heart disease of native coronary artery without angina pectoris; E11.9 Type 2 diabetes mellitus without complications; Z86.73 Personal history of transient ischemic attack (TIA), and cerebral infarction without residual deficits; F03.90 Unspecified dementia, unspecified severity, without behavioral disturbance, psychotic disturbance, mood disturbance, and anxiety; Z85.828 Personal history of other malignant neoplasm of skin

== ENCOUNTER 2018-02-22 18:41 | Inpatient (IN) | payer MEDICARE ==
[~2018-02-22] VITALS: Ht 165.1 cm; Wt 79.5 kg
[2018-02-22] VITALS (7 sets, daily range): BP systolic 139–162; BP diastolic 53–68
--- NOTE | ~2018-02-22 | OP ---
PATIENT NAME: MARC CHADWICK MEDICAL RECORD: [id number] :[birth year] LOCATION:D.M2 D.2115 ADMISSION DATE:02/24/18 SURGEON: YULY ACEVES MD DATE OF OPERATION: 02/25/2018 PROCEDURES: 1. PTCA stent left circumflex. 2. Laser atherectomy left circumflex. 3. Selective coronary angiography. INDICATION: Angina and coronary artery disease. PROCEDURE PERFORMED: After informed consent was obtained and after a detailed description of risks, benefits as well as alternative therapies, the patient elected to proceed with angiogram and angioplasty. The left femoral area was prepped and draped in normal sterile fashion. Left femoral artery was cannulated via modified Seldinger technique with placement of 6-Estonian sheath. All catheters exchanged through this sheath. FINDINGS: The left circumflex has multiple previously placed stents. There is up to 90% in-stent restenosis. This was addressed with a 0.9 laser catheter. After the stented area, there was a 95% stenosis, this was addressed with a 2.0 x 8 mm Gaurang stent. Result was 0% residual. OVERALL IMPRESSION: Successful percutaneous transluminal coronary angioplasty stent of the left circumflex going from 90% initial stenosis to 0% residual. TRANSINT:[id number] Voice Confirmation ID: [id number] DOCUMENT ID: [id number] YULY ACEVES MD at 1859 CC: [id number] DICTATION DATE: 02/25/18 1257 BRIQUETTER OPERATOR: 02/25/18 1303 ADM IN [place] [id number] [place] [address]
--- NOTE | ~2018-02-22 | HEMODYNAMI ---
PATIENT:MARC CHADWICK MEDICAL RECORD: [id number] : 49 LOCATION:[facility] D.[address] [facility]# [id number] ADMISSION DATE: 02/24/18 Generatedon:02/25/201813:00 Patient name: MARC CHADWICK Patient #: [id number] SSN: [id number] : 1945 Date of study: 02/25/2018 Page: Of Hemodynamic Procedure Report Patient Data Patient Demographics Procedure consent was obtained First Name: MARC Gender: Male Last Name: NETTA : 1945 Middle Initial: S Age: 73 year(s) Patient #: [id number] Race: SSN: [id number] Additional ID: [id number] Contact details Address: [address] [place] [address] State: [place] City: [place] Zip code: [address] Past Medical History Allergies Allergen Reaction Date Comments Reported Other allergy 10/01/2014 METHADONE Other allergy 04/28/2016 Methadone Other allergy 09/22/2016 Methadone Other allergy 02/23/2018 methadone Admission Admission Data Admission Date: 02/24/2018 Admission Time: 14:31 Admit Source: Other Room #: D[facility] Lab Results Lab Result Date: 02/23/2018 Lab Result Time: 6:50 Biochemistry Name Units Result Min Max BUN mg/dl 59 --(----)-* 7 18 Creatinine mg/dl 9.2 --(----)-* 0.6 1.3 CBC Name Units Result Min Max Hematocrit % 28.5 *-(----)-- 42 54 Hemoglobin g/dl 9.2 *-(----)-- 13.5 17.5 Procedure Procedure Types Cath Procedure Diagnostic Procedure Sedation Charges Moderate Sedation up to 15 minutes PCI Procedure Coronary Atherectomy Atherectomy w/Stent Coronary Initial Peripheral Cath Diagnostic Procedure Photo Finisher Peripheral Procedures Pcicm-Cnjcehu-Gym-Off Procedure Description Procedure Date Procedure Date: 02/25/2018 Procedure Start Time: 12:34 Procedure End Time: 12:58 Procedure Staff Name Function Osvaldo Vidal MD Performing Physician Shi Gamez RT Monitor Candida Garcia RT Scrub Jose M Alex RN Nurse Procedure Data Cath Procedure Fluoroscopy Diagnostic fluoroscopy Total fluoroscopy Time: 0 time: 0 min min Diagnostic fluoroscopy Total fluoroscopy dose: 632 dose: 632 mGy mGy Contrast Material Contrast Material Type Amount (ml) Isovue 300 115 Entry Location Entry Primary Successful Side Size Upsize Upsize Entry Closure Succes sful Closure Location (Fr) 1 (Fr) 2 (Fr) Remarks Device Remarks Femoral Left 6 Fr Exoseal artery Short Estimated blood loss: 10 ml Diagnostic catheters Device Type Used For End Catheter Placement DIAGNOSTIC Pigtail 5Fr Abdominal catheter ([id number]) aortogram with runoff Procedure Complications No complications Procedure Medications Medication Administration Route Dosage Oxygen etCO2 Nasal cannula 2 l/min Lidocaine 2% added to field 20 Heparin Flush Bag added to field 2 bags (1000units/500ml NS) 0.9% NaCl I.V. Versed I.V. 1 mg Fentanyl I.V. 50 mcg Heparin Bolus I.V. 4000 units Integrilin (Bolus I.V. 7.3 ml 2mg/ml) Versed I.V. 1 mg Fentanyl I.V. 50 mcg Plavix P.O. 600 mg Hemodynamics Rest HGB: 9.2 (g/dl) Heart Rate: 68 (bpm) Snapshots Pre Cath Intra NCS Post Cath Vital Signs Time Heart Resp SPO2 etCO2 NIBP (mmHg) Rhythm Pain Sedation Rate (ipm) (%) (mmHg) Status Level (bpm) 12:16:20 69 11 98 32 186/73(112) NSR 0 (11) 10(A) , No pain 12:20:46 72 13 97 26.3 193/71(144) NSR 0 (11) 10(A) , No pain 12:25:12 68 14 93 32.3 181/76(156) NSR 0 (11) 10(A) , No pain 12:29:37 65 13 97 30 188/73(151) NSR 0 (11) 10(A) , No pain 12:34:03 63 15 98 28.5 185/70(117) NSR 0 (11) 10(A) , No pain 12:38:31 59 16 94 33.8 166/61(120) NSR 0 (11) 9(A) , No pain 12:42:53 62 14 96 34.5 167/62(108) NSR 0 (11) 9(A) , No pain 12:47:13 65 14 97 35.3 149/69(112) NSR 0 (11) 9(A) , No pain 12:51:29 67 13 98 32.3 145/68(94) NSR 0 (11) 9(A) , No pain 12:55:41 65 14 95 34.5 143/70(110) NSR 0 (11) 10(A) , No pain Medications Time Medication Route Dose Verified Delivered Reason Notes Effectiveness by by 12:25:24 Oxygen etCO2 2 Osvaldo Salguero used for Nasal l/min Young Alex RN procedure cannula 12:25:30 Lidocaine 2% added 20ml Osvaldo Riley for local to vial Young Vidal MD anesthetic field 12:25:37 Heparin Flush added 2 Osvaldomelisa Riley used for Bag to bags Young Vidal MD procedure (1000units/500ml field NS) 12:25:48 0.9% NaCl I.V. kvo Osvaldo Salguero Per physician ml/hr Young Alex RN 12:34:54 Versed I.V. 1 mg Osvaldo Salguero for sedation Young Alex RN 12:34:59 Fentanyl I.V. 50 Osvaldo Santamariaie for sedation mcg Young Alex RN 12:39:32 Heparin Bolus I.V. 4000 Osvaldo Salguero for verif ied units Young Alex RN anticoagulation with dr vidal 12:39:50 Integrilin I.V. 7.3 Osvaldo Salguero for waste d (Bolus 2mg/ml) ml Young Alex RN anticoagulation 2.7 ml of vial 12:43:38 Versed I.V. 1 mg Osvaldo Salguero for sedation Young Alex RN 12:43:41 Fentanyl I.V. 50 Osvaldo Salguero for sedation mcg Young Alex RN 12:58:24 Plavix P.O. 600 Osvaldo Salguero for mg Young Alex RN antiplatelet therapy Procedure Log Time Note 11:58:09 Time tracking: Regular hours (M-F 7:00 - 5:00) 11:58:14 Plan of Care:Hemodynamics will remain stable., Cardiac rhythm will remain stable., Comfort level will be maintained., Respiratory function will remain adequate., Patient/ family verbilizes understanding of procedure., Procedure tolerated without complication., Recovers from procedure without complications.. 11:58:16 Candida Garcia RT(R) sent for patient. Start room use. 12:15:05 Patient received from Other to CCL 2 Alert and oriented. Tansferred to table in Supine position. 12:15:06 Warm blankets applied, and hao hugger turned on for patient comfort. 12:15:06 Correct patient and procedure confirmed by team. 12:15:08 Signed procedure consent form obtained from patient. 12:15:09 ECG and BP/O2 sat monitors applied to patient. 12:15:12 Vital chart was started 12:15:16 Baseline sample Acquired. 12:15:18 Full Disclosure recording started 12:15:21 H&P Date Dictated: 02/25/2018 Within 30 days and on chart.. 12:15:23 Pre-procedure instructions explained to patient. 12:15:23 Pre-op teaching completed and patient verbalized understanding. 12:15:26 Family in waiting room. 12:15:27 Patient NPO since Midnight. 12:15:28 Is the patient allergic to Iodine/contrast media? No. 12:15:29 Was the patient premedicated? No 12:16:11 Is patient on blood thinner?Unknown 12:16:13 Patient diabetic? No. 12:16:16 Previous problem with sedation/anesthesia? No ? 12:16:17 Snore? No 12:16:18 Sleep apnea? No 12:16:19 Deviated septum? No 12:16:20 Opens mouth fully? Yes 12:16:20 Sticks out tongue? Yes 12:16:22 Airway obstruction? No ? 12:16:26 Dentures? Yes out 12:16:30 Pre procedure: right dorsailis pedis pulse 1+ Palpable, but thready & weak; easily obliterated 12:16:32 Pre procedure: left dorsailis pedis pulse 1+ Palpable, but thready & weak; easily obliterated 12:16:33 Patient pain scale 0/10 ?. 12:16:40 IV patent on arrival in left antecubital with 0.9% NaCl at O. 12:16:42 Lab results completed and on chart. 12:16:46 Left groin area was prepped with chlora-prep and draped in sterile fashion 12:: Alarms reviewed by R. N. 12:: Sharps counted by scrub and verified by R.N. 12::57 Physician paged 12::24 Oxygen 2 l/min etCO2 Nasal cannula was administered by Jose M Alex RN; used for procedure; 12::30 Lidocaine 2% 20ml vial added to field was administered by Osvaldo Vidal MD; for local anesthetic; 12::37 Heparin Flush Bag (1000units/500ml NS) 2 bags added to field was administered by Osvaldo Vidal MD; used for procedure; 12::48 0.9% NaCl kvo ml/hr I.V. was administered by Jose M Alex RN; Per physician; 12::49 Physician arrived 12::50 --------ALL STOP TIME OUT------ 12:33:50 Final Timeout: patient, procedure, and site verified with staff and physician. All members of the team are in agreement. 12:33:53 Left groin site verified by team. 12:33:56 Physical assessment completed. ASA score P 2 - A patient with mild systemic disease as per Osvaldo Vidal MD. 12:34:01 Sedation plan: IV Moderate Sedation Medication:Versed, Fentanyl 12:34:16 Procedure started. 12:34:32 Local anesthetic to left femerol artery with Lidocaine 2% by Osvaldo Vidal MD.INITIAL ACCESS ONLY 12:34:34 Zero performed for pressure channel P1 12:34:39 Zero performed for pressure channel P1 12:34:54 Versed 1 mg I.V. was administered by Jose M Alex RN; for sedation; 12:34:59 Fentanyl 50 mcg I.V. was administered by Jose M Alex RN; for sedation; 12:35:06 A 6 Fr Short sheath was inserted into the Left Femoral artery 12:36:06 Use device set Femoral Dx 12:36:08 DIAGNOSTIC WIRE .035 260cm J wire ([id number]) opened to sterile field. 12:36:09 ACIST Hand Control (91279) opened to sterile field. 12:36:10 ACIST Manifold (31893) opened to sterile field. 12:36:12 Tegaderm 4 x 4 (1626W) opened to sterile field. 12:36:14 PERCUTANEOUS ENTRY 19GA needle opened to sterile field. 12:36:29 SHEATH Prelude 6Fr 0.035 (MZQ-0M-06-035) opened to sterile field. 12:36:49 INFLATOR Merit BasPilypak (RG8017) opened to sterile field. 12:37:16 A DIAGNOSTIC Pigtail 5Fr catheter ([id number]) was advanced over the wire and used for Abdominal aortogram with runoff. 12:37:36 Right leg runoff performed. 12:37:37 Left leg runoff performed. 12:37:41 Abdominal Aortagram was performed. 12:38:03 Catheter removed. 12:38:09 Proceeding to intervention. 12:38:21 6 Fr XB4 guide catheter was inserted over the wire 12:38:32 GUIDE 6FR XB 4.0 catheter ([id number]) opened to sterile field. 12:38:50 CHOICE PT Extra Support 182cm wire ([id number]) opened to sterile field. 12:39:32 Heparin Bolus 4000 units I.V. was administered by Jose M Alex RN; for anticoagulation; verified with dr vidal 12:39:50 Integrilin (Bolus 2mg/ml) 7.3 ml I.V. was administered by Jose M Alex RN; for anticoagulation; wasted 2.7 ml of vial 12:41:18 choice pt ex wire advanced. 12:42:45 Inflate balloon Inflation number: 2 A EUPHORA 3.0 x 15 Balloon ([id number]) was prepped and advanced across the Mid CX, then inflated to 21 BECCA for 0:07 (min:sec). 12:42:59 Inflation number: 3 The EUPHORA 3.0 x 15 Balloon ([id number]) was reinflated across the Mid CX, to 21 BECCA for 0:06 (min:sec). 12:43:22 Balloon removed over the wire. 12:43:38 Versed 1 mg I.V. was administered by Jose M Alex RN; for sedation; 12:43:41 Fentanyl 50 mcg I.V. was administered by Jose M Alex RN; for sedation; 12:44:04 LASER ELCA 0.9 Rx atherectomy catheter (255779) opened to sterile field. 12:44:46 Laser pass to mLAD with Fluence of 80 and Rate of 40. 12:46:45 Laser catheter removed. 12:47:56 Inflation number: 1 The EUPHORA 3.0 x 15 Balloon ([id number]) was reinflated across the Mid CX, to 21 BECCA for 0:11 (min:sec). 12:49:41 Place stent Inflation Number: 4 A ALFREDO RX 2.0 x 8 stent ([id number]) was prepped and advanced across the Mid CX. The stent was deployed at 13 BECCA for 0:10 (min:sec). 12:51:12 CHOICE PT Extra Support 182cm wire ([id number]) opened to sterile field. 12:51:21 EXOSEAL 6Fr (EX600) opened to sterile field. 12:52:46 Laser total pulses delivered: 1939 12:52:56 Laser total treatment time: 0 minutes 48 seconds 12:55:41 Wire removed. 12:55:41 Guide catheter removed. 12:55:50 Sheath removed intact; hemostasis achieved with Exoseal to the Left Femoral artery. 12:55:55 Procedure ended.(Physican Out) 12:56:07 Fluoroscopy time 00.00 minutes. 12:56:11 Flurop Dose total: 632 12:56:11 Fluoroscopy dose: 632 mGy 12:56:15 Contrast amount:Isovue 300 115ml. 12:56:16 Sharps counted by scrub and verified by R.N. 12:56:17 Insertion/operative site no bleeding no hematoma. 12:56:20 Post Procedure Pulses reassessed and unchanged 12:56:25 Post-procedure physical assessment completed. ASA score P 2 - A patient with mild systemic disease as per Osvaldo Vidal MD. 12:56:30 Post procedure rhythm: unchanged. 12:56:33 Estimated blood loss: 10 ml 12:56:35 Post procedure instruction explained to patient.Patient verbalizes understanding. 12:57:22 Procedure type changed to Cath procedure, Diagnostic procedure, Sedation Charges, Moderate Sedation up to 15 minutes, PCI procedure, Coronary Atherectomy, Atherectomy w/Stent Coronary Initial, Peripheral Cath Diagnostic Procedure, Photo Finisher Peripheral Procedures, Nxohh-Qzqjcco-Ucd-Off 12:57:24 Procedure and supply charges have been captured, reviewed, submitted and are correct. 12:58:08 Procedure Complication : No complications 12:58:10 Vital chart was stopped 12:58:11 See physician's report for complete and final results. 12:58:13 Report given to [facility]. 12:58:20 Patient transfered to [facility] with Bed. 12:58:24 Plavix 600 mg P.O. was administered by Jose M Alex RN; for antiplatelet therapy; 12:58:28 Procedure ended. 12:58:28 Full Disclosure recording stopped 12:58:34 End room use (Document Last) 12:58:43 ACC-PCI Only Patient was given prescriptions, or instructed by Osvaldo Vidal MD to start/continue the following medications upon discharge: Plavix Intervention Summary Intervention Notes Time ActionType Lesion and Equipment Used Action# Pressure Duration Attributes 12:42:45 Inflate Mid CX EUPHORA 3.0 x 2 21 00:07 balloon 15 Balloon ([id number]) 12:42:59 Reinflate Mid CX EUPHORA 3.0 x 3 21 00:06 balloon 15 Balloon ([id number]) 12:47:56 Reinflate Mid CX EUPHORA 3.0 x 1 21 00:11 balloon 15 Balloon ([id number]) 12:49:41 Place stent Mid CX ALFREDO RX 2.0 x 4 13 00:10 8 stent ([id number]) Device Usage Item Name Manufacture Quantity Catalog Number Hospital Part Current Minimal Lot# / Charge Number Stock Stock Serial# Code DIAGNOSTIC WIRE St Shade 1 652128 618459 325673 361909 30 .035 260cm J wire (348109) ACIST Hand Acist 1 96661 294247 313718 873975 5 Control (50932) [employer] Inc ACIST Manifold Acist 1 37983 478950 039476 054790 5 (81555) [employer] Tegaderm 4 x 4 3M 1 1626W 160988 934426 035738 5 (1626W) PERCUTANEOUS Cook Medical 1 [id number] 695582 755766 5 ENTRY 19GA needle SHEATH Prelude Merit 1 CCZ-9L-29-35 801048 6225992 541453 5 6Fr 0.035 Medical (WPQ-0R-81-035) INFLATOR Merit Merit 1 LI2279 630656 810769 060514 15 [email or web address] Medical (LA2538) DIAGNOSTIC Cardinal 1 [id number] 162344 652960 883075 5 Pigtail 5Fr Health catheter (485476F) GUIDE 6FR XB Cardinal 1 [id number] 094925 168104 253997 2 4.0 catheter [employer] Technologies ([id number]) CHOICE PT Extra [place] 2 [id number] 527243 372762 296257 5 Support 182cm Scientific wire ([id number]) EUPHORA 3.0 x Medtronic 1 [id number] 126568 870312 084767 5 [id number] 15 Balloon ([id number]) LASER ELCA 0.9 Sheela 1 110-004 959985 199597 728767 5 Rx atherectomy Healthcare catheter (647840) (240186) ALFREDO RX 2.0 x 8 Medtronic 1 [id number] 157491 4198934 568826 5 [id number] stent ([id number]) EXOSEAL 6Fr Cardinal 1 EX600 765519 602690 748999 10 (EX600) Health Signature Audit [place] Stage Time Signature Unsigned Intra-Procedure 02/25/2018 Shi Gamez 1:00:38 PM RT(R) Signatures Monitor : Shi Gamez Signature : RT Date : Time : [place] [id number] [place] [address]
--- NOTE | ~2018-02-22 | DS ---
PATIENT:MARC LEWIS :49 MEDICAL RECORD: [id number] DISCHARGE SUMMARY ADMISSION DATE: 02/24/18 DISCHARGE DATE: 03/02/18 HISTORY OF PRESENT ILLNESS: Mr. Lewis is a 73-year-old white male with end-stage renal disease, chronic dialysis at [facility], has a history of organic heart disease, status post coronary bypass grafting, presented to the Emergency Room with chest pain and shortness of breath and admitted for the above. HOSPITAL COURSE: The patient was taken to [facility] and found to have a tight circumflex lesion by Dr. Boyce where he underwent BANK OPERATIONS OFFICER and stent placement. Postoperatively, he did well, resumed dialysis without any difficulty. No arrhythmias on telemetry. At the time of discharge, he had returned to baseline with no further chest pain. DISCHARGE DIAGNOSES: 1. 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 2. End-stage renal disease, chronic dialysis. 3. Organic heart disease. 4. Poor social situation. PLAN: The patient will be discharged today. He will resume outpatient dialysis. Resume his home meds, resume his discharge diet. He declined penitentiary or assisted living placement. He will have discharge meds of Nephro-Consuelo 1 daily, Ultram 1 p.r.n., lactulose p.r.n., Senokot p.r.n., Protonix 40 mg daily, Renagel 800 two t.i.d., Desyrel 50 h.s., Zoloft 50 mg daily, Phenergan 25 mg daily, baby aspirin 1 daily, Plavix 75 mg daily. TRANSINT:[id number] Voice Confirmation ID: [id number] DOCUMENT ID: [id number] EMA GOMEZ MD at 0716 CC: [id number] DICTATION DATE: 03/02/18 0739 MANAGER SERVICES: 03/02/18 1348 DIS IN 03/02/18 [place] [id number]
--- NOTE | ~2018-02-22 | OP ---
PATIENT NAME: MARC CHADWICK MEDICAL RECORD: [id number] :49 LOCATION:D.M2 D.2115 ADMISSION DATE:02/24/18 SURGEON: YULY ACEVES MD DATE OF OPERATION: 02/25/2018 PROCEDURE: 1. Aortofemoral runoff. 2. Abdominal aortography. INDICATION: Claudication and peripheral vascular disease. PROCEDURE IN DETAIL: After informed consent was obtained and after a detailed description of risks, benefits as well as alternative therapies, the patient elected to proceed with angiogram. The left femoral area had a preexisting sheath. All catheters exchanged through this sheath. FINDINGS: The catheter was advanced to the abdominal aorta, pulled down for aortofemoral runoff. The abdominal aorta reveals no significant abdominal aortic disease, mild irregularities, no dissection or aneurysm formation. RIGHT LEG: A. Iliac: The common internal and external iliacs have moderate calcification, but no flow-limiting stenosis. B. Femoral system: The common and deep femoral are widely patent. Superficial femoral has multiple areas of moderate to severe disease, greater than 80% in multiple places. C. Popliteal and infrapopliteal vessel appears to be a total occlusion of the anterior tibial, posterior tibial and peroneal are patent, although severely diffusely diseased, severely calcified, but there is 2-vessel runoff to the foot. LEFT LEG: A. Iliac: The common internal and external iliacs have moderate calcification, but no flow-limiting stenosis. B. Femoral system: The common and deep femoral are widely patent. Superficial femoral has multiple areas of moderate to severe disease, greater than 80% in multiple places. C. Popliteal and infrapopliteal vessel appears to be a total occlusion of the anterior tibial, posterior tibial and peroneal are patent, although severely diffusely diseased, severely calcified, but there is 2-vessel runoff to the foot. OVERALL IMPRESSION: Moderate to severe diffuse disease of the SFAs bilaterally and severe disease of the infrapopliteal disease bilaterally. Continue medical management of the peripheral vascular disease and peripheral risk factors. TRANSINT:[id number] Voice Confirmation ID: [id number] DOCUMENT ID: [id number] OPERATIVE REPORT [id number] MARC CHADWICK YULY ACEVES MD at 1859 CC: [id number] DICTATION DATE: 02/25/18 1257 OVEN WORKER: 02/25/18 1303 ADM IN [facility] [address] [place] [address]
--- NOTE | ~2018-02-22 | HEMODYNAMI ---
PATIENT:MARC CHADWICK MEDICAL RECORD: [id number] : 49 [facility] [id number] ADMISSION DATE: 02/22/18 Generatedon:02/23/201813:37 Patient name: MARC CHADWICK Patient #: [id number] SSN: [id number] : 1945 Date of study: 02/23/2018 Page: Of Hemodynamic Procedure Report Patient Data Patient Demographics Procedure consent was obtained First Name: MARC Gender: Male Last Name: NETTA : 1945 Middle Initial: S Age: 73 year(s) Patient #: [id number] Race: SSN: [id number] Additional ID: [id number] Contact details Address: [address] [place] [address] State: [place] City: [place] Zip code: [address] Past Medical History Allergies Allergen Reaction Date Comments Reported Other allergy 10/01/2014 METHADONE Other allergy 04/28/2016 Methadone Other allergy 09/22/2016 Methadone Other allergy 02/23/2018 methadone Admission Admission Data Admission Date: 02/22/2018 Admission Time: 21:45 Admit Source: Other Room #: D.[facility] [place] Lab Results Lab Result Date: 02/23/2018 Lab Result Time: 6:50 Biochemistry Name Units Result Min Max BUN mg/dl 59 --(----)-* 7 18 Creatinine mg/dl 9.2 --(----)-* 0.6 1.3 CBC Name Units Result Min Max Hematocrit % 28.5 *-(----)-- 42 54 Hemoglobin g/dl 9.2 *-(----)-- 13.5 17.5 Procedure Procedure Types Cath Procedure Diagnostic Procedure LHC LHC w/Coronaries w/Grafts Sedation Charges Moderate Sedation up to 15 minutes Procedure Description Procedure Date Procedure Date: 02/23/2018 Procedure Start Time: 13:11 Procedure End Time: 13:33 Procedure Staff Name Function Ac Boyce MD Performing Physician Candida Garcia RT Monitor Gray Lorenzo RT Scrub Noe Barbosa RN Nurse Eric Rodrigues RT X Ray Developer Procedure Data Cath Procedure Fluoroscopy Diagnostic fluoroscopy Total fluoroscopy Time: 4.4 time: 4.4 min min Diagnostic fluoroscopy Total fluoroscopy dose: 793 dose: 793 mGy mGy Contrast Material Contrast Material Type Amount (ml) Isovue 300 113 Entry Location Entry Primary Successful Side Size Upsize Upsize Entry Closure Succes sful Closure Location (Fr) 1 (Fr) 2 (Fr) Remarks Device Remarks Femoral Right 5 Fr Exoseal artery Femoral Right 5 Fr Exoseal vein Estimated blood loss: 5 ml Diagnostic catheters Device Type Used For End Catheter Placement MULTIPACK JL 4.0 5Fr Left Coronary catheter Angiography DIAGNOSTIC AR MOD 5Fr Multi-vessel Catheter ([id number]) Angiography DIAGNOSTIC IM 5Fr Multi-vessel catheter ([id number]) Angiography MULTIPACK Pigtail 5 Fr LV Angiography catheter Procedure Complications No complications Procedure Medications Medication Administration Route Dosage 0.9% NaCl I.V. 10 ml/hr Oxygen etCO2 Nasal cannula 2 l/min Heparin Flush Bag added to field 2 bags (1000units/500ml NS) Lidocaine 2% added to field 20 Versed 1 mg Fentanyl I.V. 50 mcg Versed 1 mg Fentanyl I.V. 50 mcg Hemodynamics Rest Heart Rate: 50 (bpm) Pressure Samples Time Site Value (mmHg) Purpose Heart Use Rate(bpm) 13:27 LV 131/14,28 Snapshot 60 13:28 AO 151/61(93) Pullback 66 13:28 LV 126/16,14 Pullback 66 Gradients Valve Time Site 1 Site 2 Mean SEP/DFP Peak To Heart Use (mmHg) (sec/min) Peak Rate (mmHg) (bpm) Aortic 13:28 LV AO 0 17 0 66 126/16,14 151/61(93) Calculations Valve P-P Mean Valve Index Valve Source Name Gradient Area Flow (cm2) Aortic 0 0 0 0 Snapshots Pre Cath Intra NCS Post Cath Vital Signs Time Heart Resp SPO2 etCO2 NIBP (mmHg) Rhythm Pain Sedation Rate (ipm) (%) (mmHg) Status Level (bpm) 13:06:31 59 14 99 17.2 130/63(97) NSR 0 (11) 10(A) , No pain 13:10:41 60 18 98 9 136/79(109) NSR 0 (11) 10(A) , No pain 13:14:57 56 18 95 39.7 126/64(93) NSR 0 (11) 10(A) , No pain 13:18:55 56 18 100 18.7 112/70(102) NSR 0 (11) 9(A) , No pain 13:22:56 65 18 99 16.4 131/87(101) NSR 0 (11) 9(A) , No pain 13:27:57 59 17 95 27.7 132/72(104) NSR 0 (11) 9(A) , No pain 13:32:13 59 19 97 34.4 130/66(107) NSR 0 (11) 9(A) , No pain Medications Time Medication Route Dose Verified Delivered Reason Notes Eff ectiveness by by 12:59:53 0.9% NaCl I.V. 10 Noe Noe Per ml/hr Chelsey Sellersigan physician RN RN 13:00:05 Oxygen etCO2 2 Noe Noe Per Nasal l/min Chelsey Sellersigan physician cannula RN RN 13:00:16 Heparin Flush added 2 Noe Noe used for Bag to bags Lorigan Lorigan procedure (1000units/500ml field RN RN NS) 13:00:26 Lidocaine 2% added 20ml Noe Noe for local to vial Lorigan Lorigan anesthetic field RN RN 13:01:01 Versed 1 mg Noe Noe for Lorigan Lorigan sedation RN RN 13:01:10 Fentanyl I.V. 50 Noe Noe for mcg Lorigan Lorigan sedation RN RN 13:11:13 Versed 1 mg Noe Noe for Lorigan Lorigan sedation RN RN 13:11:17 Fentanyl I.V. 50 Noe Noe for mcg Lorigan Lorigan sedation RN magistrate Log Time Note 12:38:17 Informed consent obtained and on chart 12:38:21 Admit Source: Other 12:38:40 Diagnostic Cath status Elective 12:38:41 Eric Rodrigues RT(R) sent for patient. Start room use. 12:38:49 Time tracking: Regular hours (M-F 7:00 - 5:00) 12:38:55 Plan of Care:Hemodynamics will remain stable., Cardiac rhythm will remain stable., Comfort level will be maintained., Respiratory function will remain adequate., Patient/ family verbilizes understanding of procedure., Procedure tolerated without complication., Recovers from procedure without complications.. 12:39:05 H&P Date Dictated: 02/22/2018 Within 30 days and on chart.. 12:40:01 Lab Result : BUN 59 mg/dl 12:40:01 Lab Result : Creatinine 9.2 mg/dl 12:40:01 Lab Result : Hemoglobin 9.2 g/dl 12:40:01 Lab Result : Hematocrit 28.5 % 12:44:29 Patient received from Med II to CCL 2 Alert and oriented. Tansferred to table in Supine position. 12:44:30 Warm blankets applied, and hao hugger turned on for patient comfort. 12:44:31 Correct patient and procedure confirmed by team. 12:44:33 ECG and BP/O2 sat monitors applied to patient. 12:44:34 Pre-procedure instructions explained to patient. 12:44:35 Pre-op teaching completed and patient verbalized understanding. 12:44:38 Patient NPO since Midnight. 12:45:06 Patient allergic to Other allergymethadone 12:56:01 Family in waiting room. 12:56:03 Is the patient allergic to Iodine/contrast media? No. 12:56:04 Was the patient premedicated? No 12:56:06 Is patient on blood thinner?Yes 12:56:07 ACC The patient was administered the following blood thiners within the last 24 hours: ACCPlavix 12:56:08 Patient diabetic? Yes. 12:56:27 If diabetic: On Metformin? Yes 12:57:14 patient states he is unsure of the date of last dose of Metformin 12:57:17 Previous problem with sedation/anesthesia? No ? 12:57:19 Snore? Yes 12:57:20 Sleep apnea? No 12:57:21 Deviated septum? No 12:57:22 Opens mouth fully? Yes 12:57:23 Sticks out tongue? Yes 12:57:27 Airway obstruction? No ? 12:57:30 Dentures? Yes out 12:59:39 Pre procedure: right dorsailis pedis pulse 1+ Palpable, but thready & weak; easily obliterated 12:59:42 Patient pain scale 0/10 ?. 12:59:49 IV patent on arrival in left forearm with 0.9% NaCl at [facility]. 12:59:51 Lab results completed and on chart. 12:59:53 0.9% NaCl 10 ml/hr I.V. was administered by Noe Barbosa RN; Per physician; 12:59:55 Right groin area was prepped with chlora-prep and draped in sterile fashion 12:59:56 Alarms reviewed by R. N. 12:59:56 Sharps counted by scrub and verified by R.N. 13:00:05 Oxygen 2 l/min etCO2 Nasal cannula was administered by Noe Barbosa RN; Per physician; 13:00:16 Heparin Flush Bag (1000units/500ml NS) 2 bags added to field was administered by Noe Barbosa RN; used for procedure; 13:00:26 Lidocaine 2% 20ml vial added to field was administered by Noe Barbosa RN; for local anesthetic; 13:00:35 Physician arrived 13:00:36 --------ALL STOP TIME OUT------ 13:00:37 Final Timeout: patient, procedure, and site verified with staff and physician. All members of the team are in agreement. 13:00:39 Right groin site verified by team. 13:00:42 Physical assessment completed. ASA score P 2 - A patient with mild systemic disease as per Ac Boyce MD. 13:00:45 Sedation plan: IV Moderate Sedation Medication:Versed, Fentanyl 13:00:50 Use device set Femoral Dx 13:00:51 ACIST Syringe (40530) opened to sterile field. 13:00:52 Bag Decanter (2002S) opened to sterile field. 13:00:52 Medline Cath Pack ([id number]) opened to sterile field. 13:00:53 DIAGNOSTIC WIRE .035 260cm J wire (420821) opened to sterile field. 13:00:54 ACIST Hand Control (44887) opened to sterile field. 13:00:55 ACIST Manifold (26498) opened to sterile field. 13:00:55 DIAGNOSTIC Multipack 5Fr catheter set ([id number]) opened to sterile field. 13:00:56 Tegaderm 4 x 4 (1626W) opened to sterile field. 13:00:57 SHEATH Prelude 5Fr 0.035 (ERV-1H-94-035) opened to sterile field. 13:01:01 Versed 1 mg was administered by Noe Barbosa RN; for sedation; 13:01:10 Fentanyl 50 mcg I.V. was administered by Noe Barbosa RN; for sedation; ::42 Baseline sample Acquired. 13:05:45 Vital chart was started 13:11:02 Procedure started. 13:: Full Disclosure recording started 13::05 Local anesthetic to right femoral artery with Lidocaine 2% by Ac Boyce MD.INITIAL ACCESS ONLY 13::13 Versed 1 mg was administered by Noe Barbosa RN; for sedation; ::16 A 5 Fr sheath was inserted into the Right Femoral artery 13:11:17 Fentanyl 50 mcg I.V. was administered by Noe Barbosa RN; for sedation; :15:08 SHEATH Prelude 5Fr 0.035 (GIC-6U-63-035) opened to sterile field. 13:15:24 A 5 Fr sheath was inserted into the Right Femoral vein 13:17:39 A MULTIPACK JL 4.0 5Fr catheter was advanced over the wire and used for Left Coronary Angiography. 13:19:13 LCA angiography performed. 13:19:16 Injector settings: Ml/sec: 3, Volume: 6, 13:19:23 Catheter removed. 13:21:36 A DIAGNOSTIC AR MOD 5Fr Catheter ([id number]) was advanced over the wire and used for Multi-vessel Angiography. 13:21:43 RCA angiography performed. 13:21:51 Injector settings: Ml/sec: 3, Volume: 6, 13:22:04 Catheter removed. 13:23:08 A DIAGNOSTIC IM 5Fr catheter (453840S) was advanced over the wire and used for Multi-vessel Angiography. 13:25:04 REED angiography performed. 13:26:19 Injector settings: Ml/sec: 3, Volume: 6, 13:26:33 Catheter removed. 13:26:50 A MULTIPACK Pigtail 5 Fr catheter was advanced over the wire and used for LV Angiography. 13:27:50 LV hemodynamics recorded. 13:27:51 LV gram done using RODRIGUEZ 13::53 Injector settings: Ml/sec: 5, Volume: 15, 13:28:02 EF : 25 % 13:28:33 Aortic Root visualized 13:28:39 Injector settings: Ml/sec: 10, Volume: 20, 13:30:30 Catheter removed. 13:30:37 EXOSEAL 5Fr (EX500) opened to sterile field. 13:31:00 Sheath removed intact; hemostasis achieved with Exoseal to the Right Femoral artery. 13:31:14 EXOSEAL 5Fr (EX500) opened to sterile field. 13:32:00 Sheath removed intact; hemostasis achieved with Exoseal to the Right Femoral vein. 13:32:02 Procedure ended.(Physican Out) 13:32:14 Fluoroscopy time 04.40 minutes. 13:32:33 Flurop Dose total: 793 13:32:33 Fluoroscopy dose: 793 mGy 13:32:42 Contrast amount:Isovue 300 113ml. 13:32:46 Sharps counted by scrub and verified by R.N. 13:32:47 Insertion/operative site no bleeding no hematoma. 13:32:50 Post-op/insertion site Right Femoral artery dressed using a 4 x 4 and Tegaderm. 13:32:52 Post right femoral artery:stable 13:32:54 Post Procedure Pulses reassessed and unchanged 13:32:57 Post procedure rhythm: unchanged. 13:33:00 Estimated blood loss: 5 ml 13:33:01 Post procedure instruction explained to patient.Patient verbalizes understanding. 13:33:02 Patient needs reinforcement of post procedure teaching. 13:33:14 Procedure type changed to Cath procedure, Diagnostic procedure, LHC, LHC w/Coronaries w/Grafts, Sedation Charges, Moderate Sedation up to 15 minutes 13:33:14 Procedure and supply charges have been captured, reviewed, submitted and are correct. 13:33:19 Procedure Complication : No complications 13:33:21 Vital chart was stopped 13:33:21 See physician's report for complete and final results. 13:33:25 Report given to Med II. 13:33:28 Patient transfered to [facility] II with Stretcher. 13:33:31 Procedure ended. 13:33:31 Full Disclosure recording stopped 13:33:35 End room use (Document Last) Device Usage Item Name Manufacture Quantity Catalog Number Hospital Part Current M inimal Lot# / Charge Number Stock Stock Serial# Code ACIST Syringe Acist 1 93276 199455 308784 347326 2 0 () Medical [employer] Bag Decanter Microtek 1 173958 12324 863011 5 (2002S) Medical Inc. Medline Cath Cardinal 1 [id number] 836490 40181 543893 5 Pack Health ([id number]) DIAGNOSTIC WIRE St Shade 1 241955 372497 386079 991645 3 0 .035 260cm J wire (595021) ACIST Hand Acist 1 42286 279541 255922 305346 5 Control (84375) Medical Systems Inc ACIST Manifold Acist 1 68941 498452 996780 256187 5 (86986) Medical Systems Inc DIAGNOSTIC Cardinal 1 [id number] 790045 46269 396862 3 0 Multipack 5Fr Health catheter set (CT3782) Tegaderm 4 x 4 3M 1 1626W 559894 622451 713029 5 (1626W) SHEATH Prelude Merit 2 QGT-4Z-64-035 968488 024763 674028 5 5Fr 0.035 Medical (QDT-5E-54-035) MULTIPACK JL Cardinal 1 746547 5 4.0 5Fr Health catheter DIAGNOSTIC AR Cardinal 1 [id number] 090079 822022 456794 1 5 MOD 5Fr Health Catheter (974992G) DIAGNOSTIC IM Cardinal 1 [id number] 678366 329023 126813 5 5Fr catheter Health (883694W) MULTIPACK Cardinal 1 677066 5 Pigtail 5 Fr Health catheter EXOSEAL 5Fr Cardinal 2 EX500 871514 679319 601510 1 0 (EX500) Health Signature Audit [place] Stage Time Signature Unsigned Intra-Procedure 02/23/2018 Candida Garcia 1:37:36 PM RT(R) Signatures Monitor : Candida Garcia RT Signature : Date : Time : [facility] [address], [place] [address]
[2018-02-22 19:51] LABS: BASOPHILS 0.3 % (0-2); EOSINOPHILS 3.4 % (0-7); HEMATOCRIT 32.5 % (42.0-54.0); HEMOGLOBIN 10.8 g/dL (13.5-17.5); IMMATURE GRANULOCYTES 0.2 % (0-5); LYMPHOCYTES 12.2 % (15-50); MCH 32.2 pg (26.0-34.0); MCHC 33.2 g/dL (31.0-37.0); MEAN PLATELET VOLUME 9.8 fL (7.4-10.4); MONOCYTES 7.9 % (2-11); PLATELET COUNT 147 10x3/uL (130-400); RBC 3.35 10x6/uL (4.20-6.10); WBC 6.5 10x3/uL (4.8-10.8)
[2018-02-22 20:03] LABS: APTT 28.7 SECONDS (22.8-39.4); INR 1.21 (0.85-1.17); PROTIME 14.9 SECONDS (11.6-15.0)
[2018-02-22 20:12] LABS: ALBUMIN 3.3 g/dL (3.4-5.0); ALKALINE PHOSPHATASE 91 U/L (46-116); ALT (SGPT) 9 U/L (10-68); BILIRUBIN - TOTAL 0.44 mg/dL (0.2-1.3); CALC OSMOLALITY 287 mosm/kg (275-300); CALCIUM 8.5 mg/dL (8.5-10.1); CARBON DIOXIDE 22.1 mmol/L (21.0-32.0); CHLORIDE - SERUM 98 mmol/L (98-107); CREATININE - SERUM 8.2 mg/dL (0.6-1.3); GLUCOSE 170 mg/dL (74-106); POTASSIUM - SERUM 3.2 mmol/L (3.5-5.1); PROTEIN - SERUM 7.1 g/dL (6.4-8.2); SODIUM 135 mmol/L (136-145); UREA NITROGEN 51 mg/dL (7-18); eGFR NON AFRICAN AMERICAN 7 mL/min (90-120)
[2018-02-22 20:22] LABS: CKMB 2.6 U/L (0.0-3.6); CREATINE KINASE 37 UL (21-232); TROPONIN-I 0.026 ng/mL (0.000-0.060)
[2018-02-23 00:59] VITALS: BP 100/29
[2018-02-23 01:51] LABS: CKMB 2.2 U/L (0.0-3.6); CREATINE KINASE 34 UL (21-232); TROPONIN-I 0.035 ng/mL (0.000-0.060)
[2018-02-23 06:56] VITALS: BP 119/62
[2018-02-23 07:35] LABS: CKMB 1.6 U/L (0.0-3.6); CREATINE KINASE 29 UL (21-232); TROPONIN-I 0.038 ng/mL (0.000-0.060)
[2018-02-23 08:21] VITALS: BP 112/64
[2018-02-23 08:43] VITALS: BMI 29.1
[2018-02-23 09:18] LABS: ANION GAP 19.2 mmol/L (8-16); CALCIUM 8.3 mg/dL (8.5-10.1); CARBON DIOXIDE 24.8 mmol/L (21.0-32.0); CREATININE - SERUM 9.2 mg/dL (0.6-1.3)
[2018-02-23 09:22] LABS: BASOPHILS 0.4 % (0-2); EOSINOPHILS 4.3 % (0-7); HEMATOCRIT 28.5 % (42.0-54.0); HEMOGLOBIN 9.2 g/dL (13.5-17.5); IMMATURE GRANULOCYTES 0.2 % (0-5); MCH 31.8 pg (26.0-34.0); MCHC 32.3 g/dL (31.0-37.0); MCV 98.6 fL (80.0-100.0); MEAN PLATELET VOLUME 10.4 fL (7.4-10.4); MONOCYTES 13.7 % (2-11); NEUTROPHILS 58.4 % (40-80); PLATELET COUNT 138 10x3/uL (130-400); RBC 2.89 10x6/uL (4.20-6.10); RDW 15.3 % (11.5-14.5); WBC 4.9 10x3/uL (4.8-10.8)
[2018-02-23 11:23] VITALS: BP 118/69
[2018-02-23 14:02] VITALS: Ht 165.1 cm; Wt 79.5 kg
[2018-02-23 15:39] VITALS: BP 136/63
[2018-02-23 23:50] VITALS: BP 144/69
[2018-02-24 07:09] VITALS: BP 119/50
[2018-02-24 09:04] VITALS: BP 165/58
[2018-02-24 11:26] VITALS: BP 143/61
[2018-02-24 15:47] VITALS: BP 162/65
[2018-02-24 22:05] VITALS: BP 187/71
[2018-02-25 02:00] VITALS: BP 188/94
[2018-02-25 06:16] VITALS: BP 187/79
[2018-02-25 08:39] VITALS: BP 173/81
[2018-02-25 15:37] VITALS: BP 162/81
[2018-02-25 21:18] VITALS: BP 141/69
[2018-02-26 05:42] VITALS: BP 117/53
[2018-02-26 08:19] VITALS: BP 129/47
[2018-02-26 11:50] VITALS: BP 116/74
[2018-02-26 15:41] VITALS: BP 162/67
[2018-02-26 21:04] VITALS: BP 112/70
[2018-02-27 05:48] VITALS: BP 143/35
[2018-02-27 08:00] VITALS: BP 158/68
[2018-02-27 15:32] VITALS: BP 142/71
[2018-02-27 20:29] VITALS: BP 136/73
[2018-02-28 04:30] VITALS: BP 96/40
[2018-02-28 05:33] LABS: BASOPHILS 0.4 % (0-2); EOSINOPHILS 6.7 % (0-7); HEMATOCRIT 30.2 % (42.0-54.0); HEMOGLOBIN 9.8 g/dL (13.5-17.5); IMMATURE GRANULOCYTES 0.2 % (0-5); LYMPHOCYTES 23.2 % (15-50); MCH 31.5 pg (26.0-34.0); MCHC 32.5 g/dL (31.0-37.0); MCV 97.1 fL (80.0-100.0); MEAN PLATELET VOLUME 9.4 fL (7.4-10.4); MONOCYTES 8.4 % (2-11); NEUTROPHILS 61.1 % (40-80); PLATELET COUNT 125 10x3/uL (130-400); RBC 3.11 10x6/uL (4.20-6.10); RDW 14.6 % (11.5-14.5); WBC 5.4 10x3/uL (4.8-10.8)
[2018-02-28 05:49] LABS: ALBUMIN 3.1 g/dL (3.4-5.0); ANION GAP 17.2 mmol/L (8-16); BILIRUBIN - TOTAL 0.29 mg/dL (0.2-1.3); CALCIUM 8.6 mg/dL (8.5-10.1); CARBON DIOXIDE 25.4 mmol/L (21.0-32.0); POTASSIUM - SERUM 3.6 mmol/L (3.5-5.1); PROTEIN - SERUM 6.5 g/dL (6.4-8.2)
[2018-02-28 08:23] VITALS: BP 95/35
[2018-02-28 11:43] VITALS: BP 125/59
[2018-02-28 15:35] VITALS: BP 147/58
[2018-02-28 20:00] VITALS: BP 151/64
[2018-02-28 23:54] VITALS: BP 117/42
[2018-03-01 04:00] VITALS: BP 125/55
[2018-03-01 08:32] VITALS: BP 159/72
[2018-03-01 15:20] VITALS: BP 116/58
[2018-03-01 22:06] VITALS: BP 96/48
[2018-03-02 00:47] VITALS: BP 91/40
[2018-03-02 05:23] VITALS: BP 115/49
[2018-03-02 06:08] LABS: BASOPHILS 0.1 % (0-2); EOSINOPHILS 5.1 % (0-7); HEMATOCRIT 31.3 % (42.0-54.0); HEMOGLOBIN 10.2 g/dL (13.5-17.5); IMMATURE GRANULOCYTES 0.1 % (0-5); LYMPHOCYTES 16.2 % (15-50); MCH 31.4 pg (26.0-34.0); MCHC 32.6 g/dL (31.0-37.0); MCV 96.3 fL (80.0-100.0); MEAN PLATELET VOLUME 9.7 fL (7.4-10.4); MONOCYTES 8.1 % (2-11); NEUTROPHILS 70.4 % (40-80); PLATELET COUNT 126 10x3/uL (130-400); RBC 3.25 10x6/uL (4.20-6.10); RDW 14.2 % (11.5-14.5); WBC 7.2 10x3/uL (4.8-10.8)
[2018-03-02 06:30] LABS: ALBUMIN 3.1 g/dL (3.4-5.0); ANION GAP 14.3 mmol/L (8-16); BILIRUBIN - TOTAL 0.36 mg/dL (0.2-1.3); CALCIUM 8.6 mg/dL (8.5-10.1); CARBON DIOXIDE 28.5 mmol/L (21.0-32.0); CREATININE - SERUM 8.2 mg/dL (0.6-1.3); POTASSIUM - SERUM 3.8 mmol/L (3.5-5.1); PROTEIN - SERUM 6.8 g/dL (6.4-8.2)
[2018-03-02 08:23] VITALS: BP 138/61
[2018-03-02] MEDS ORDERED: PLAVIX75 MG PO (08:54)
== END 2018-03-02 10:17 | disposition home health service (06) | DRG 246 ==
LOC: D.ER 18:41 → D.EDHOLD 21:45 → D.M2 21:45 → OBSVTIME 21:55 → D.M2 23:20 → D.SDCHOLD 02-23 09:11 → D.M2 02-24 14:31
PROVIDERS: Emergency Medicine; Family Medicine; Internal Medicine Cardiovascular Disease; Internal Medicine Nephrology
PROC: B2121ZZ Fluoroscopy of Single Coronary Artery Bypass Graft using Low Osmolar Contrast (ICD-10-PCS; 2018-02-23)
PROC: B2111ZZ Fluoroscopy of Multiple Coronary Arteries using Low Osmolar Contrast (ICD-10-PCS; 2018-02-23)
PROC: B2181ZZ Fluoroscopy of Left Internal Mammary Bypass Graft using Low Osmolar Contrast (ICD-10-PCS; 2018-02-23)
PROC: B2151ZZ Fluoroscopy of Left Heart using Low Osmolar Contrast (ICD-10-PCS; 2018-02-23)
PROC: 4A023N7 Measurement of Cardiac Sampling and Pressure, Left Heart, Percutaneous Approach (ICD-10-PCS; 2018-02-23)
PROC: 5A1D70Z Performance of Urinary Filtration, Intermittent, Less than 6 Hours Per Day (ICD-10-PCS; principal; 2018-02-24)
PROC: 02C03ZZ Extirpation of Matter from Coronary Artery, One Artery, Percutaneous Approach (ICD-10-PCS; 2018-02-25)
PROC: 027034Z Dilation of Coronary Artery, One Artery with Drug-eluting Intraluminal Device, Percutaneous Approach (ICD-10-PCS; 2018-02-25)
PROC: B4101ZZ Fluoroscopy of Abdominal Aorta using Low Osmolar Contrast (ICD-10-PCS; 2018-02-25)
DX: I25.10 Atherosclerotic heart disease of native coronary artery without angina pectoris (principal); N18.6 End stage renal disease; I12.0 Hypertensive chronic kidney disease with stage 5 chronic kidney disease or end stage renal disease; T82.855A Stenosis of coronary artery stent, initial encounter; Y83.8 Other surgical procedures as the cause of abnormal reaction of the patient, or of later complication, without mention of misadventure at the time of the procedure; E11.22 Type 2 diabetes mellitus with diabetic chronic kidney disease; Z99.2 Dependence on renal dialysis; Z79.4 Long term (current) use of insulin; E78.5 Hyperlipidemia, unspecified; K21.9 Gastro-esophageal reflux disease without esophagitis; F03.90 Unspecified dementia, unspecified severity, without behavioral disturbance, psychotic disturbance, mood disturbance, and anxiety; D63.1 Anemia in chronic kidney disease; I70.213 Atherosclerosis of native arteries of extremities with intermittent claudication, bilateral legs; Z95.1 Presence of aortocoronary bypass graft; Z95.5 Presence of coronary angioplasty implant and graft; Z86.73 Personal history of transient ischemic attack (TIA), and cerebral infarction without residual deficits; Z95.0 Presence of cardiac pacemaker

== ENCOUNTER 2018-07-23 12:32 | Observation (INO) | payer MEDICARE ==
[~2018-07-23] VITALS: Ht 165.1 cm; Wt 83.0 kg
[~2018-07-23 12:32] MED LIST changes: -LASIX40 MG
[2018-07-23 13:58] LABS: BASOPHILS 0.4 % (0-2); HEMOGLOBIN 11.8 g/dL (13.5-17.5); IMMATURE GRANULOCYTES 0.2 % (0-5); MCH 31.9 pg (26.0-34.0); MCHC 33.7 g/dL (31.0-37.0); MCV 94.6 fL (80.0-100.0); MEAN PLATELET VOLUME 8.5 fL (7.4-10.4); NEUTROPHILS 61.4 % (40-80); PLATELET COUNT 111 10x3/uL (130-400); RDW 14.4 % (11.5-14.5); WBC 5.7 10x3/uL (4.8-10.8)
[2018-07-23 14:09] LABS: INR 1.03 (0.85-1.17)
[2018-07-23 14:10] LABS: APTT 38.5 SECONDS (22.8-39.4)
[2018-07-23 14:19] LABS: ALBUMIN 3.1 g/dL (3.4-5.0); ALKALINE PHOSPHATASE 139 U/L (46-116); ALT (SGPT) 20 U/L (10-68); BILIRUBIN - TOTAL 0.42 mg/dL (0.2-1.3); CALC OSMOLALITY 293 mosm/kg (275-300); CALCIUM 8.5 mg/dL (8.5-10.1); CARBON DIOXIDE 27.6 mmol/L (21.0-32.0); CHLORIDE - SERUM 101 mmol/L (98-107); CREATININE - SERUM 7.9 mg/dL (0.6-1.3); GLUCOSE 139 mg/dL (74-106); POTASSIUM - SERUM 5.5 mmol/L (3.5-5.1); PROTEIN - SERUM 6.5 g/dL (6.4-8.2); SODIUM 140 mmol/L (136-145); UREA NITROGEN 50 mg/dL (7-18); eGFR NON AFRICAN AMERICAN 7 mL/min (90-120)
[2018-07-23 14:29] LABS: CKMB 1.4 U/L (0.0-3.6); CREATINE KINASE 28 UL (21-232); MAGNESIUM - SERUM 2.3 mg/dL (1.8-2.4); THYROID STIMULATING HORMONE 0.56 uIU/mL (0.36-3.74); TROPONIN-I 0.023 ng/mL (0.000-0.060)
[2018-07-23 14:42] VITALS: BP 112/62
--- NOTE | 2018-07-23 15:43 | NUR ---
PT BRENT 100% OF NOON MEAL, UP TO RESTROOM WITHOUT ASSIST.
[2018-07-23 17:46] VITALS: BP 126/69
--- NOTE | 2018-07-23 18:25 | NUR ---
PT ARRIVED TO FLOOR VIA WHEELCHAIR WITH LEHR LOADER. BEDSIDE REPORT RECIEVED. ASSESSMENT PERFORMED. PT REPORTS THAT HE CAN NOT READ EVER SINCE HER STROKE LAST YEAR. PT STATES HE RECIEVES DIALYSIS HERE AT [facility] M[facility],F AND THE DIALYSIS NURSES HAVE A LIST OF HIS HOME MEDS BUT THE ONLY REAL COPY IS AT HIS HOUSE. ATTEMPTED TO REVIEW HOME MEDS WITH PT BUT HE IS NOT SURE OF WHAT HE TAKES. PT DOES USE DENTURES, GLASSES, AND BILATERAL HEARING AIDS BUT PT DID NOT BRING THEM TO THE HOSPITAL WITH HIM. PATIENT HAS A RIGHT ARM AV FISTULA, BRUIT AND THRILL PRESENT. PT REPORTS HE IS OLIGURIC. 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 PATIENT ATE 100% OF HIS SUPPER. INSTRUCTED PT TO USE CALL LIGHT. DENIES PAIN AT THIS TIME. DENIES ANY OTHER NEEDS AT THIS TIME, WILL CONT TO FOLLOW PLAN OF CARE
[2018-07-23 20:00] VITALS: BP 139/58
--- NOTE | 2018-07-23 20:43 | NUR ---
NO TELEMETRY AVAILABLE FOR PT. WILL CONTINUE TO MONITOR
--- NOTE | 2018-07-23 21:36 | NUR ---
PT ALERT BUT CONFUSED X2. DOESN'T KNOW WHAT HOSPITAL OR WHY HERE. FALL PERCUATIONS IN PLACE, BED LOW, CALL LIGHT WITHIN REACH. NO S/S OF DISTRESS. RR EVEN AND UNLABORED. WILL CONTINUE TO MONITOR.
--- NOTE | 2018-07-23 21:48 | NUR ---
PT SITTING UP IN CHAIR. 20G IV PULLED OUT OF RIGHT AV. CATHETER TIP IN PLACE. PT ALERT AND ORIENTED X2. PT CONFUSED ABOUT SITUATION AND PLACE. FALL PERCAUTIONS IMPLEMENTED. NO S/S OF DISTRESS. VITALS STABLE. BED LOW CALL LIGHT WITHIN REACH SIDE RAILS UP X2. WILL CONTINUE TO MONITOR.
[2018-07-24 00:05] VITALS: BP 148/65
[2018-07-24 04:00] VITALS: BP 136/64
--- NOTE | 2018-07-24 05:50 | NUR ---
I AGREE WITH PRIOR ASSESSMENT.
[2018-07-24 05:54] LABS: BASOPHILS 0.2 % (0-2); EOSINOPHILS 4.9 % (0-7); HEMATOCRIT 37.2 % (42.0-54.0); HEMOGLOBIN 12.4 g/dL (13.5-17.5); IMMATURE GRANULOCYTES 0.2 % (0-5); LYMPHOCYTES 19.1 % (15-50); MCH 31.9 pg (26.0-34.0); MCHC 33.3 g/dL (31.0-37.0); MCV 95.6 fL (80.0-100.0); MEAN PLATELET VOLUME 9.2 fL (7.4-10.4); MONOCYTES 6.6 % (2-11); PLATELET COUNT 130 10x3/uL (130-400); RBC 3.89 10x6/uL (4.20-6.10); RDW 14.6 % (11.5-14.5); WBC 6.3 10x3/uL (4.8-10.8)
[2018-07-24 06:07] LABS: ALBUMIN 3.3 g/dL (3.4-5.0); ANION GAP 20.3 mmol/L (8-16); BILIRUBIN - TOTAL 0.4 mg/dL (0.2-1.3); CALCIUM 8.7 mg/dL (8.5-10.1); CARBON DIOXIDE 25.2 mmol/L (21.0-32.0); CREATININE - SERUM 9.2 mg/dL (0.6-1.3); POTASSIUM - SERUM 5.5 mmol/L (3.5-5.1); PROTEIN - SERUM 6.9 g/dL (6.4-8.2)
--- NOTE | 2018-07-24 07:30 | NUR ---
RECEIVED A/A/OX4. SITTING UP IN CHAIR AT BEDSIDE, NO REQUESTS BUT WANTING TO KNOW WHEN HE CAN GO HOME. ASSESSMENT COMPLETED. PT HAS BRANDON PAD UNDER HIM IN CHAIR AND ALARM ON BED IS TURNED ON. APPEARS STEADY ON HIS FEET WHEN UP AND REQUIRES NO ASST. BED IN LOWEST POSITION, SIDERAILS UP X 2 AND CALL LIGHT IN REACH. WILL CONTINUE POC.
[2018-07-24 08:24] VITALS: Ht 165.1 cm; Wt 83.0 kg
[2018-07-24 09:57] VITALS: BP 161/45
--- NOTE | 2018-07-24 11:56 | MORECARE ---
CASE MANAGEMENT DISCHARGE SUMMARY PATIENT: MARC CHADWICK UNIT: [id number] ADM DATE: 07/23/18 AGE: 73 : [birth year] SEX: M ROOM/BED: D.2136 AUTHOR: RADHA MCGRATH PHYSICIAN: REFERRING PHYSICIAN: CHRISTIANO GROSSMAN MD DATE OF SERVICE: 07/24/18 Discharge Plan Patient Name: MARC CHADWICK [facility] [facility] 1945 Planned Disposition: Anticipated Discharge Date: Discharge Date: Expected LOS: Initial Reviewer: [email or web address] Initial Review Date: 07/24/2018 Generated: 07/24/18 12:55 pm Comments DCP- Discharge Planning Updated by [email or web address]: Ysabel Vazquez on 07/24/18 10:[address] Patient Name: MARC CHADWICK Admission Status: ER Accout number: [id number] Admission Date: 07-23-2018 : 1945 Admission Diagnosis: Attending: CHRISTIANO GROSSMAN Current LOS: 1 Anticipated DC Date: Planned Disposition: Primary Insurance: MEDICARE A & B Discharge Planning Comments: CM SPOKE WITH PATIENT AND JULIO C PLEITEZ WILL FEED HANDLER AT TIME OF DC. MR. PLEITEZ PHONE NUMBER IS [phone]. Glass Smoother: Ysabel Vazquez Patient Name: MARC CHADWICK Page 76183 at 1156 All edits/amendments must be made on the electronic document DICTATION DATE: 07/24/18 1155 FURNITURE INSPECTOR: JANN 07/24/18 1155 RPT#: [id number] DC DATE: STATUS: ADM IN [facility] [address] [place] [address] END OF REPORT
--- NOTE | 2018-07-24 12:30 | NUR ---
DISCHARGE INSTRUCTIONS REVIEWED WITH PT AND SEEMS TO UNDERSTAND BUT STATES HE CANNOT SIGN ANYTHING BECAUSE HE CANNOT WRITE. SIGNED WITH AN X. LEFT FLOOR VIA W/C WITH ALL PERSONAL BELONGINGS. LEFT FACILITY VIA PRIVATE VEHILE WITH A FRIEND.
--- NOTE | 2018-07-28 09:33 | MORECARE ---
CASE MANAGEMENT DISCHARGE SUMMARY PATIENT: MARC CHADWICK UNIT: [id number] ADM DATE: 07/23/18 AGE: 73 : 47 SEX: M ROOM/BED: D.2136 AUTHOR: RADHA MCGRATH PHYSICIAN: REFERRING PHYSICIAN: CHRISTIANO GROSSMAN MD DATE OF SERVICE: 07/28/18 Discharge Plan Patient Name: MARC CHADWICK Facility: [facility]:[place] : 1945 Planned Disposition: Home Anticipated Discharge Date: 07/24/18 Discharge Date: 07/24/2018 Expected LOS: 1 Initial Reviewer: [email or web address] Initial Review Date: 07/24/2018 Generated: 07/28/18 10:33 am Comments DCP- Discharge Planning Updated by [email or web address]: Ysabel Vazquez on 07/24/18 10:[address] Patient Name: MARC CHADWICK Admission Status: ER Accout number: [id number] Admission Date: 07-23-2018 : 1945 Admission Diagnosis: Attending: CHRISTIANO GROSSMAN Current LOS: 1 Anticipated DC Date: Planned Disposition: Primary Insurance: MEDICARE A & B Discharge Planning Comments: CM SPOKE WITH PATIENT AND JULIO C PLEITEZ WILL INK JET OPERATOR AT TIME OF DC. MR. PLEITEZ PHONE NUMBER IS [phone]. Supervisor Gate Services: Ysabel Randolph DP export: 07/24/18 10:56 a Patient Name: MARC CHADWICK Page [phone] at 0933 All edits/amendments must be made on the electronic document DICTATION DATE: 07/28/1833 PROJECT LEAD: DM 07/28/1833 RPT#: [id number] DC DATE:07/24/18 STATUS: DIS IN [facility] [address] [place] [address] END OF REPORT
== END 2018-07-24 13:43 | disposition home or self-care (01) ==
LOC: D.ER 12:32 → D.M2 14:40 → D.EDHOLD 14:40 → OBSVTIME 15:00 → D.M2 16:18
PROVIDERS: Family Medicine; ADMIT Internal Medicine
DX: I95.9 Hypotension, unspecified (principal); E11.22 Type 2 diabetes mellitus with diabetic chronic kidney disease; I12.0 Hypertensive chronic kidney disease with stage 5 chronic kidney disease or end stage renal disease; N18.6 End stage renal disease; Z99.2 Dependence on renal dialysis; Z86.73 Personal history of transient ischemic attack (TIA), and cerebral infarction without residual deficits; I25.10 Atherosclerotic heart disease of native coronary artery without angina pectoris; Z95.0 Presence of cardiac pacemaker; Z95.1 Presence of aortocoronary bypass graft; D63.1 Anemia in chronic kidney disease; F03.90 Unspecified dementia, unspecified severity, without behavioral disturbance, psychotic disturbance, mood disturbance, and anxiety

== ENCOUNTER 2018-07-26 15:13 | Inpatient (IN) | payer MEDICARE ==
[~2018-07-26] VITALS: Ht 165.1 cm; Wt 64.5 kg
[2018-07-26 16:22] LABS: BASOPHILS 0.1 % (0-2); EOSINOPHILS 2.4 % (0-7); HEMATOCRIT 39.3 % (42.0-54.0); HEMOGLOBIN 13.3 g/dL (13.5-17.5); IMMATURE GRANULOCYTES 0.3 % (0-5); LYMPHOCYTES 14.4 % (15-50); MCH 32.6 pg (26.0-34.0); MCHC 33.8 g/dL (31.0-37.0); MCV 96.3 fL (80.0-100.0); MEAN PLATELET VOLUME 9.3 fL (7.4-10.4); MONOCYTES 6.6 % (2-11); NEUTROPHILS 76.2 % (40-80); PLATELET COUNT 132 10x3/uL (130-400); RBC 4.08 10x6/uL (4.20-6.10); RDW 14.5 % (11.5-14.5)
[2018-07-26 16:31] LABS: APTT 40.8 SECONDS (22.8-39.4); INR 1.05 (0.85-1.17); PROTIME 13.2 SECONDS (11.6-15.0)
[2018-07-26 16:35] LABS: ALKALINE PHOSPHATASE 141 U/L (46-116); ALT (SGPT) 21 U/L (10-68); BILIRUBIN - TOTAL 0.75 mg/dL (0.2-1.3); CALC OSMOLALITY 284 mosm/kg (275-300); CALCIUM 9.5 mg/dL (8.5-10.1); CHLORIDE - SERUM 98 mmol/L (98-107); CREATININE - SERUM 5.8 mg/dL (0.6-1.3); GLUCOSE 115 mg/dL (74-106); POTASSIUM - SERUM 4.8 mmol/L (3.5-5.1); PROTEIN - SERUM 8.2 g/dL (6.4-8.2); SODIUM 140 mmol/L (136-145); UREA NITROGEN 26 mg/dL (7-18); eGFR NON AFRICAN AMERICAN 10 mL/min (90-120)
[2018-07-26 16:47] LABS: CREATINE KINASE 35 UL (21-232); MAGNESIUM - SERUM 1.9 mg/dL (1.8-2.4); THYROID STIMULATING HORMONE 0.61 uIU/mL (0.36-3.74); TROPONIN-I 0.023 ng/mL (0.000-0.060)
[2018-07-26] MEDS ORDERED: COREG 3.1253.125 MG PO (18:27)
[2018-07-26 20:00] VITALS: BP 98/45
[2018-07-27] VITALS (7 sets, daily range): BP systolic 97–123; BP diastolic 45–67; Ht 165.1 cm; Wt 64.5 kg
[2018-07-27 17:04] LABS: % SATURATION 44 % (15-55); IRON 103 ug/dl (35-150); TOTAL IRON BIND CAPACITY 230 ug/dl (260-445); UNSAT IRON BIND CAPACITY 127 ug/dl (150-375)
[2018-07-28 04:00] VITALS: BP 120/60
[2018-07-28 06:32] LABS: ANION GAP 20.6 mmol/L (8-16); BASOPHILS 0.1 % (0-2); CALCIUM 9.3 mg/dL (8.5-10.1); EOSINOPHILS 4.1 % (0-7); HEMATOCRIT 37.7 % (42.0-54.0); HEMOGLOBIN 12.5 g/dL (13.5-17.5); IMMATURE GRANULOCYTES 0.3 % (0-5); MCHC 33.2 g/dL (31.0-37.0); MCV 96.4 fL (80.0-100.0); MEAN PLATELET VOLUME 9.7 fL (7.4-10.4); MONOCYTES 8.6 % (2-11); NEUTROPHILS 66.9 % (40-80); PLATELET COUNT 143 10x3/uL (130-400); POTASSIUM - SERUM 4.6 mmol/L (3.5-5.1); RBC 3.91 10x6/uL (4.20-6.10); RDW 14.6 % (11.5-14.5); WBC 7.1 10x3/uL (4.8-10.8)
[2018-07-28 06:35] LABS: CREATININE - SERUM 9.5 mg/dL (0.6-1.3)
[2018-07-28 08:57] VITALS: BP 125/57
--- NOTE | 2018-07-28 16:10 | MORECARE ---
CASE MANAGEMENT DISCHARGE SUMMARY PATIENT: MARC CHADWICK UNIT: [id number] ADM DATE: 07/26/18 AGE: 73 : [birth year] SEX: M ROOM/BED: D.2136 AUTHOR: RADHA MCGRATH PHYSICIAN: REFERRING PHYSICIAN: SHARI WHITE MD DATE OF SERVICE: 07/28/18 Discharge Plan Patient Name: MARC CHADWICK Facility: [facility]:[place] : 1945 Planned Disposition: Inpatient Rehab Anticipated Discharge Date: 07/28/18 Discharge Date: Expected LOS: 2 Initial Reviewer: [email or web address] Initial Review Date: 07/28/2018 Generated: 07/28/18 5:10 pm DCPIA - Discharge Planning Initial Assessment Updated by [email or web address]: Elie Broderick on 07/28/18 4:07 pm * Is the patient Alert and Oriented? Yes * How many steps to enter\exit or inside your home? NONE * [place]CP [place], [facility] * [place]acy [place] [facility] ([place]) * Preadmission Environment Home Alone * ADLs Independent * Equipment Cane Glucometer Walker Wheelchair * Other Equipment [facility] - MEDICAL EQUIPMENT PROVIDER * List name and contact numbers for known caregivers / representatives who currently or will assist patient after discharge: JULIO C PLEITEZ, FRIEND, * Verbal permission to speak to the caregivers and representatives has been obtained from the patient. N/A * Community resources currently utilized Other * Please name any agencies selected above. OUTPATIENT DIALYSIS, [facility], MWF, [address] HOURS, [facility] * Additional services required to return to the preadmission environment? Yes * Can the patient safely return to the preadmission environment? Yes * Has this patient been hospitalized within the prior 30 days at any hospital? Yes Patient Name: MARC CHADWICK Page 76267 at 1610 All edits/amendments must be made on the electronic document DICTATION DATE: 07/28/18 160 CATERING AND EVENTS MANAGER: JANN 07/28/18 160 RPT#: [id number] DC DATE: STATUS: ADM IN [facility] [address] [place] [address] END OF REPORT
--- NOTE | 2018-07-28 16:17 | MORECARE ---
CASE MANAGEMENT DISCHARGE SUMMARY PATIENT: MARC CHADWICK UNIT: [id number] ADM DATE: 07/26/18 AGE: 73 : [birth year] SEX: M ROOM/BED: D.4626 AUTHOR: ALCIDESDOC PHYSICIAN: REFERRING PHYSICIAN: SHARI WHITE MD DATE OF SERVICE: 07/28/18 Discharge Plan Patient Name: MARC CHADWICK [facility] [facility] 1945 Planned Disposition: Inpatient Rehab Anticipated Discharge Date: 07/28/18 Discharge Date: Expected LOS: 2 Initial Reviewer: [email or web address] Initial Review Date: 07/28/2018 Generated: 07/28/18 5:17 pm Comments DCP- Discharge Planning Updated by [email or web address]: Elie Broderick on 07/28/18 3:[address] Patient Name: MARC CHADWICK Admission Status: ER Accout number: [id number] Admission Date: 07-26-2018 : 1945 Admission Diagnosis: Attending: SHARI WHITE Current LOS: 2 Anticipated DC Date: 07-28-2018 Planned Disposition: Inpatient Rehab Primary Insurance: MEDICARE A & B PLANNED EXTERNAL PROVIDER: [facility] INPATIENT REHAB Discharge Planning Comments: CM MET WITH PT IN ROOM TO DISCUSS DISCHARGE PLANNING AND NEEDS. PT REPORTS LIVING AT HOME INDEPENDENTLY AND ALONE WITH 2 DOGS. PT HAS CANE, GLUCOMETER, WALKER AND WHEELCHAIR. PT STILL HAS NON WORKING ELECTRIC WHEELCHAIR THAT HE DOES NOT USE. [facility] EQU[facility]MENT PROVID[facility]. PT HAS NO OUTSIDE SERVICES ASSISTING IN THE HOME. PT ATTENDS DIALYSIS ON [facility], 1:00PM SCHEDULE AND USES [employer] TRANSPORT BUS. CM DISCUSSED AVAILABILITY OF HOME HEALTH, REHAB SERVICES AND MEDICAL EQUIPMENT. PT KNOWS HE NEEDS REHAB AND WOULD LIKE REHAB AT [facility]. PT REPORTS A FRIEND WILL PICK HIM UP FOR DISCHARGE HOME. CM SPOKE TO TELMA OF INPATIENT REHAB, SHE HAS MET WITH PT IN ROOM WHO IS IN AGREEMENT WITH REHAB AT [place], THEY PLAN TO ACCEPT PT WHEN MEDICALLY STABLE FOR REHAB AND CAN ACCEPT TODAY IF STABLE. PT NOTIFIED, IN AGREEMENT WITH DISCHARGE TO INPATIENT REHAB. NOTIFY [facility] IN[facility] WHEN DISCHARGED. [facility] INPATIENT [facility] TO CONTACT MED 2 NURSE WITH ROOM NUMBER WHEN READY TO ACCEPT PT AND NURSE REPORT. Industrial Economics Professor: Elie Broderick DCPIA - Discharge Planning Initial Assessment Updated by [email or web address]: Elie Broderick on 07/28/18 4:07 pm * Is the patient Alert and Oriented? Yes * How many steps to enter\exit or inside your home? NONE * PCP [place], [facility] * [facility] * Preadmission Environment Home Alone * ADLs Independent * Equipment Cane Glucometer Walker Wheelchair * Other Equipment [facility] - MEDICAL EQUIPMENT PROVIDER * List name and contact numbers for known caregivers / representatives who currently or will assist patient after discharge: JULIO C PLEITEZ, FRIEND, * Verbal permission to speak to the caregivers and representatives has been obtained from the patient. N/A * Community resources currently utilized Other * Please name any agencies selected above. OUTPATIENT DIALYSIS, [facility], MWF, 1300 HOURS, [employer] [employer] [facility] * Additional services required to return to the preadmission environment? Yes * Can the patient safely return to the preadmission environment? Yes * Has this patient been hospitalized within the prior 30 days at any hospital? Yes Last DP export: 07/28/18 3:10 p Patient Name: MARC CHADWICK Page [phone] at 1617 All edits/amendments must be made on the electronic document DICTATION DATE: 07/28/181615 TRANSIT SURVEY WORKER: JANN 07/28/181615 RPT#: [id number] DC DATE: STATUS: ADM IN [facility] [address] [place] [address] END OF REPORT
[2018-07-28 20:00] VITALS: BP 133/60
[2018-07-29] VITALS: BP 128/55
[2018-07-29 04:00] VITALS: BP 132/55
[2018-07-29 06:01] LABS: BASOPHILS 0.2 % (0-2); EOSINOPHILS 4.2 % (0-7); HEMATOCRIT 32.2 % (42.0-54.0); HEMOGLOBIN 10.7 g/dL (13.5-17.5); IMMATURE GRANULOCYTES 0.4 % (0-5); LYMPHOCYTES 24.4 % (15-50); MCH 31.6 pg (26.0-34.0); MCHC 33.2 g/dL (31.0-37.0); MEAN PLATELET VOLUME 9.7 fL (7.4-10.4); NEUTROPHILS 61.8 % (40-80); RBC 3.39 10x6/uL (4.20-6.10); RDW 14.3 % (11.5-14.5)
[2018-07-29 06:06] LABS: PLATELET COUNT 104 10x3/uL (130-400)
[2018-07-29 06:22] LABS: ANION GAP 16.6 mmol/L (8-16); CALCIUM 8.8 mg/dL (8.5-10.1); CARBON DIOXIDE 26.6 mmol/L (21.0-32.0); CREATININE - SERUM 8.1 mg/dL (0.6-1.3); PHOSPHOROUS 7.8 mg/dL (2.5-4.9); POTASSIUM - SERUM 4.2 mmol/L (3.5-5.1)
[2018-07-29 08:20] LABS: FOLATE (FOLIC ACID) - SERUM 6.6 ng/mL (>3.0)
[2018-07-29 09:21] VITALS: BP 127/58
[2018-07-29 11:59] VITALS: BP 136/56
--- NOTE | 2018-07-29 14:51 | MORECARE ---
CASE MANAGEMENT DISCHARGE SUMMARY PATIENT: MARC CHADWICK UNIT: [id number] ADM DATE: 07/26/18 AGE: 73 : [birth year] SEX: M ROOM/BED: D.2136 AUTHOR: RADHA MCGRATH PHYSICIAN: REFERRING PHYSICIAN: SHARI WHITE MD DATE OF SERVICE: 07/29/18 Discharge Plan Patient Name: MARC CHADWICK Facility: [facility]:[place] : 1945 Planned Disposition: Inpatient Rehab Anticipated Discharge Date: 07/29/18 Discharge Date: Expected LOS: 3 Initial Reviewer: [email or web address] Initial Review Date: 07/28/2018 Generated: 07/29/18 3:51 pm Comments DCP- Discharge Planning Updated by [email or web address]: Elie Broderick on 07/29/18 1:[address] Patient Name: MARC CHADWICK Encounter No: [id number] : 1945 Primary Insurance: MEDICARE A & B Anticipated DC Date: 07-29-2018 Planned Disposition: Inpatient Rehab External Planned Provider: [facility] DCP follow-up note: CM SPOKE TO PT IN ROOM WHO IS STILL IN AGREEMENT WITH DISCHARGE TO INPATIENT REHAB. CM PROVIDED AND DISCUSSED IMPORTAN MESSAGE FROM MEDICARE. RN CM HOUSE NOTIFIED KUSHAL OF INPATIENT REHAB. REHAB TO ACCEPT TODAY. LINE WELDER NURSE NOTIFIED. [facility] INPATIENT REHAB TO CONTACT MED 2 NURSE WITH ROOM NUMBER WHEN READY TO ACCEPT PT AND NURSE REPORT. CAMILLE Franco DCP- Discharge Planning Updated by [email or web address]: Elie Broderick on 07/28/18 3:[address] Patient Name: MARC CHADWICK Admission Status: ER Accout number: [id number] Admission Date: 07-26-2018 : 1945 Admission Diagnosis: Attending: SHARI WHITE Current LOS: 2 Anticipated DC Date: 07-28-2018 Planned Disposition: Inpatient Rehab Primary Insurance: MEDICARE A & B PLANNED EXTERNAL PROVIDER: [facility] IN[facility]IENT REH[facility] Discharge Planning Comments: CM MET WITH PT IN ROOM TO DISCUSS DISCHARGE PLANNING AND NEEDS. PT REPORTS LIVING AT HOME INDEPENDENTLY AND ALONE WITH 2 DOGS. PT HAS CANE, GLUCOMETER, WALKER AND WHEELCHAIR. PT STILL HAS NON WORKING ELECTRIC WHEELCHAIR THAT HE DOES NOT USE. [facility] IS PT'S MEDICAL EQUIPMENT PROVIDER. PT HAS NO OUTSIDE SERVICES ASSISTING IN THE HOME. PT ATTENDS DIALYSIS ON [facility], 1:00PM SCHEDULE AND USES [employer] TRANSPORT BUS. CM DISCUSSED AVAILABILITY OF HOME HEALTH, REHAB SERVICES AND MEDICAL EQUIPMENT. PT KNOWS HE NEEDS REHAB AND WOULD LIKE REHAB AT [facility]. PT REPORTS A FRIEND WILL PICK HIM UP FOR DISCHARGE HOME. CM SPOKE TO TELMA OF INPATIENT REHAB, SHE HAS MET WITH PT IN ROOM WHO IS IN AGREEMENT WITH REHAB AT [place], THEY PLAN TO ACCEPT PT WHEN MEDICALLY STABLE FOR REHAB AND CAN ACCEPT TODAY IF STABLE. PT NOTIFIED, IN AGREEMENT WITH DISCHARGE TO INPATIENT REHAB. NOTIFY [facility] INPATIENT REHAB WHEN DISCHARGED. [facility] INPATIENT REHAB TO CONTACT MED 2 NURSE WITH ROOM NUMBER WHEN READY TO ACCEPT PT AND NURSE REPORT. Director Appointment: Elie Broderick DCPIA - Discharge Planning Initial Assessment Updated by [email or web address]: Elie Broderick on 07/28/18 4:07 pm * Is the patient Alert and Oriented? Yes * How many steps to enter\exit or inside your home? NONE * [place] * [facility] * Preadmission Environment Home Alone * ADLs Independent * Equipment Cane Glucometer Walker Wheelchair * Other Equipment [facility] - MEDICAL EQUIPMENT PROVIDER * List name and contact numbers for known caregivers / representatives who currently or will assist patient after discharge: JULIO C PLEITEZ, FRIEND, * Verbal permission to speak to the caregivers and representatives has been obtained from the patient. N/A * Community resources currently utilized Other * Please name any agencies selected above. OUTPATIENT DIALYSIS, [facility], [place], 1300 HOURS, [employer] [employer] [facility] * Additional services required to return to the preadmission environment? Yes * Can the patient safely return to the preadmission environment? Yes * Has this patient been hospitalized within the prior 30 days at any hospital? Yes Coverage Notice Reviewer: [email or web address] - Elie Broderick Notice Issued Date-Time: 07/29/2018 11:40 Notice Type: IM Discharge Notice Notice Delivered To: Patient Relationship to Patient: Centrifugal Casting Machine Tender Name: Delivery Method: HAND - Hand Delivered Lakisha Days: Prior Verbal Notification: Recipient Understood Notice: Yes Recipient Signature: Yes Med Rec Note Co-signed by Attending: Coverage Notice Comment: Last DP export: 07/28/18 3:17 p Patient Name: MARC CHADWICK Page [phone] at 1451 All edits/amendments must be made on the electronic document DICTATION DATE: 07/29/181450 CYBER ENGINEER: JANN 07/29/181450 RPT#: [id number] DC DATE: STATUS: ADM IN [facility] [address] [place] [address] END OF REPORT
[2018-07-29] MEDS ORDERED: HUMULIN R100 U/ML SC (15:51)
[2018-07-29] MEDS ORDERED: PROTONIX40 MG PO (15:52)
[2018-07-29] MEDS ORDERED: RENVELA800 MG PO (15:53)
[2018-07-29] MEDS ORDERED: ZOLOFT25 MG PO (15:54)
[2018-07-29] MEDS ORDERED: ACETAMINOPHEN325 MG PO (15:55)
[2018-07-29 17:31] VITALS: BP 106/72
== END 2018-07-29 20:14 | DRG 67 ==
LOC: D.ER 15:13 → OBSVTIME 17:03 → D.M2 17:03
PROVIDERS: Nurse Practitioner Family; ADMIT Internal Medicine Nephrology
PROC: 5A1D70Z Performance of Urinary Filtration, Intermittent, Less than 6 Hours Per Day (ICD-10-PCS; principal; 2018-07-28)
DX: I65.23 Occlusion and stenosis of bilateral carotid arteries (principal); N18.6 End stage renal disease; I12.0 Hypertensive chronic kidney disease with stage 5 chronic kidney disease or end stage renal disease; I69.354 Hemiplegia and hemiparesis following cerebral infarction affecting left non-dominant side; E11.22 Type 2 diabetes mellitus with diabetic chronic kidney disease; E11.65 Type 2 diabetes mellitus with hyperglycemia; Z99.2 Dependence on renal dialysis; D50.9 Iron deficiency anemia, unspecified; E78.5 Hyperlipidemia, unspecified; I25.10 Atherosclerotic heart disease of native coronary artery without angina pectoris; F03.90 Unspecified dementia, unspecified severity, without behavioral disturbance, psychotic disturbance, mood disturbance, and anxiety; D63.1 Anemia in chronic kidney disease

== ENCOUNTER 2018-07-29 16:23 | Inpatient (IN) | payer MEDICARE ==
[~2018-07-29] VITALS: Ht 165.1 cm; Wt 72.1 kg
--- NOTE | 2018-07-29 11:45 | NUR ---
PATIENT PULLED IV OUT OF LEFT HAND AND PULLED DRESSING OFF AT DIALYSIS ACCESS. I ASKED PATIENT WHY HE HAD REMOVED THE IV AND ALSO THE BANDAGE AND PATINT STATED " I CAN DO WHATEVER I WANT TO DO, IT IS MY BODY AND I DO NOT TRUST DOCTORS OR NURSES."
[~2018-07-29 16:23] MED LIST changes: +ACETAMINOPHEN325 MG PO; +COREG 3.1253.125 MG PO; +HUMULIN R100 U/ML SC; +PROTONIX40 MG PO; +ZOLOFT25 MG PO
--- NOTE | 2018-07-29 20:01 | NUR ---
PATIENT ARRIVED TO UNIT AND ORIENTATED TO ROOM. CALL LIGHT IN REACH.
[2018-07-29 21:20] VITALS: BP 175/78; BMI 25.8
--- NOTE | 2018-07-29 21:20 | NUR ---
ADMISSION ASSESSMENT COMPLETE AND PATIENT REPOSITIONED FOR COMFORT LAYING IN SUPINE POSITION. HOB AT 15 DEGREES. DENIES ANY NEEDS AT THIS TIME. CALL LIGHT IN REACH.
[2018-07-30 00:08] VITALS: BP 159/68
--- NOTE | 2018-07-30 00:37 | NUR ---
PATIENT AWAKE AND WALKING THE HALLS. PATIENT STATED THAT HE DIDNT WANT TO GO TO BED AND THAT HE COULD DO WHAT EVER HE WANTED TO.
--- NOTE | 2018-07-30 01:00 | NUR ---
PATIENT BACK TO ROOM AND SITTING ON SIDE OF BED. CALL LIGHT IN REACH.
--- NOTE | 2018-07-30 02:03 | NUR ---
PATIENT ASLEEP LAYING ON LEFT SIDE. HOB AT 10 DEGREES. RESPIRATIONS EVEN. NO S/S OF DISTRESS. CALL LIGHT IN REACH.
--- NOTE | 2018-07-30 04:22 | NUR ---
PATIENT AWAKE LAYING IN BED WATCHING TV. DENIES ANY NEEDS AT THIS TIME. CALL LIGHT IN REACH.
[2018-07-30 06:05] VITALS: BP 159/77
[2018-07-30 07:00] LABS: BASOPHILS 0.3 % (0-2); EOSINOPHILS 5.9 % (0-7); HEMATOCRIT 33.4 % (42.0-54.0); IMMATURE GRANULOCYTES 0.2 % (0-5); LYMPHOCYTES 21.4 % (15-50); MCH 31.3 pg (26.0-34.0); MCHC 32.9 g/dL (31.0-37.0); MCV 94.9 fL (80.0-100.0); MEAN PLATELET VOLUME 9.6 fL (7.4-10.4); MONOCYTES 8.6 % (2-11); NEUTROPHILS 63.6 % (40-80); PLATELET COUNT 123 10x3/uL (130-400); RBC 3.52 10x6/uL (4.20-6.10); RDW 14.5 % (11.5-14.5); WBC 5.9 10x3/uL (4.8-10.8)
[2018-07-30 07:24] LABS: CALCIUM 8.6 mg/dL (8.5-10.1); CARBON DIOXIDE 25.1 mmol/L (21.0-32.0); POTASSIUM - SERUM 4.1 mmol/L (3.5-5.1)
[2018-07-30 07:32] LABS: CREATININE - SERUM 10.3 mg/dL (0.6-1.3)
--- NOTE | 2018-07-30 08:07 | NUR ---
PT SITTING UP EATING BREAKFAST. EXPLAINED TO PT SCEDULE OF THE DAY. PT STATES UNDERSTANDING. WCTM.
[2018-07-30 11:48] VITALS: BP 152/64
[2018-07-30 13:14] VITALS: Ht 165.1 cm; Wt 72.1 kg
--- NOTE | 2018-07-30 15:56 | NUR ---
PATIENT ADMITTS TO REHAB FROM ACUTE FLOOR. PATIENT PCP IS [facility]. DME AT HOME IS CANE, WALKER, WHEELCHAIR AND GLUCOMETER. PATIENT HAS HD ON AT 1:00 CHAIR TIME AT [facility] . WILL CONTINUE TO FOLLOW WITH PATIENT AND WILL ASSIST WITH DISCHARGE NEEDS.
[2018-07-30 18:00] VITALS: BP 140/63
--- NOTE | 2018-07-30 19:20 | NUR ---
GREETED PATIENT AND INTRODUCED MYSELF HIS NURSE FOR THE EVENING. PATIENT SITTING ON SIDE OF BED AND DENIES ANY NEEDS AT THIS TIME. CALL LIGHT IN REACH.
--- NOTE | 2018-07-30 19:49 | NUR ---
PATIENT OUT OF BED AND IN HALLWAY USING WALKER AND VERY UNSTEADY. HELPED PATIENT BACK TO ROOM AND ORIENTATED TO SURROUNDINGS. PATIENT STATED "I DONT WANT TO STAY IN MY ROOM, I WANT TO GO HOME." I TOLD PATIENT THAT IF HE WANTED TO GET UP AGAIN TO USE THE CALL LIGHT AND I WOULD ASSIST HIM TO A WHEELCHAIR. CALL LIGHT IN REACH
[2018-07-30 21:21] VITALS: BP 118/58
--- NOTE | 2018-07-30 21:40 | NUR ---
PATIENT REFUSES TO STAY IN HIS ROOM OR IN HIS BED. PATIENT IS WEAK FROM DIALYSIS. PATIENT MOVED INTO THERAPY ROOM IN WHEELCHAIR FOR CLOSE OBSERVATION. WCTM.
--- NOTE | 2018-07-30 22:39 | NUR ---
PATIENT BACK TO HOSPITAL ROOM FROM THERAPY ROOM AND REPOSITIONED FOR COMFORT. CALL LIGHT IN REACH
--- NOTE | 2018-07-31 00:07 | NUR ---
PATIENT SITTING IN RECLINER WATCHING TV. PATIENT STATES THAT "HE IS VERY TIRED FROM DIALYSIS." PATIENT REFUSES TO LAY DOWN IN BED AND REST. CALL LIGHT IN REACH.
[2018-07-31 00:21] VITALS: BP 132/56
--- NOTE | 2018-07-31 01:02 | NUR ---
PATIENT UP OUT OF BED AND BUSINESS DEVELOPER OFFERED ASSISTANCE TO BATHROOM, PATIENT REFUSED ANY KIND OF ASSISTANCE AND TOLD BUSINESS DEVELOPER THAT HE HAD SIGNED A WAIVER THAT ALLOWED HIM TO GET UP WHEN EVER HE WANTS TO.
--- NOTE | 2018-07-31 05:16 | NUR ---
PATIENT AWAKE AND SITTING ON SIDE OF THE BED. DENIES ANY NEEDS AT THIS TIME. CALL LIGHT IN REACH.
[2018-07-31 06:24] VITALS: BP 123/62
[2018-07-31 07:00] LABS: BASOPHILS 0.3 % (0-2); EOSINOPHILS 3.9 % (0-7); HEMATOCRIT 35.5 % (42.0-54.0); HEMOGLOBIN 12.1 g/dL (13.5-17.5); IMMATURE GRANULOCYTES 0.1 % (0-5); LYMPHOCYTES 21.6 % (15-50); MCH 31.8 pg (26.0-34.0); MCHC 34.1 g/dL (31.0-37.0); MCV 93.4 fL (80.0-100.0); MEAN PLATELET VOLUME 9.6 fL (7.4-10.4); MONOCYTES 8.2 % (2-11); NEUTROPHILS 65.9 % (40-80); PLATELET COUNT 136 10x3/uL (130-400); RDW 14.2 % (11.5-14.5)
[2018-07-31 07:04] LABS: WBC 7.7 10x3/uL (4.8-10.8)
--- NOTE | 2018-07-31 08:25 | NUR ---
PT AM MEDS ADMINISTERED. PT DENIES NEEDS. WCTM.
[2018-07-31 12:12] VITALS: BP 106/48
--- NOTE | 2018-07-31 18:45 | NUR ---
PT UP IN WHEELCHAIR, DENIES NEEDS. WCTM.
[2018-07-31 19:00] VITALS: BP 121/36
--- NOTE | 2018-07-31 20:00 | NUR ---
PATIENT RECEIVED SITTING UP IN BED WATCHING TV. PATIENT VITAL SIGNS & ASSESSMENT DONE. PATIENT HAD NO C/O PAIN OR DISTRESS. PATIENT BEDSIDE TABLE & CALL LIGHT WITHIN REACH. PATIENT ALARM WAIVER SIGNED. WILL CONTINUE TO MONITOR.
[2018-08-01 00:26] VITALS: BP 157/55
--- NOTE | 2018-08-01 00:52 | NUR ---
THE PATIENT IS AWAKE ANY LYING IN BED. HE APPEARS COMFORTABLE AND HAS NO QUESTIONS OR CONCERNS AT THIS TIME.
[2018-08-01 05:25] VITALS: BP 147/61
--- NOTE | 2018-08-01 07:42 | NUR ---
RECEIVED REPORT. SITTING UP IN W/C ROAMING HALLS PROPELS SELF. DENIES ANY NEEDS OR PAIN. RR EVEN AND UNLABORED. LEFT FOREARM IV SITE DRESSING C/D/I WILL CONTINUE TO MONITOR
--- NOTE | 2018-08-01 08:10 | NUR ---
ADMINISTERED MORNING MEDS WHOLE WITHOUT DIFFICULTY. DENIES ANY NEEDS OR PAIN. BED ALARM WAIVER ON FILE. WILL CONTINUE TO MONITOR
[2018-08-01 08:14] VITALS: BP 123/64
--- NOTE | 2018-08-01 12:30 | NUR ---
IN SHOWER ASSISTED BY KATHY CARNEY WITH SBA. D/C LEFT FOREARM IV WITH CATH TIP INTACT. APPLIED PRESSURE NO DRESSING APPLIED.
[2018-08-01 12:38] VITALS: BP 154/38
[2018-08-01 17:10] VITALS: BP 136/58
--- NOTE | 2018-08-01 17:25 | NUR ---
LYING IN BED SUPINE WATCHING TV. DENIES ANY NEEDS OR PAIN. NO S/S OF ACUTE DISTRESS NOTED
[2018-08-01 19:32] VITALS: BP 158/60
--- NOTE | 2018-08-01 19:50 | NUR ---
AWAKE AND ALERT. RESPIRATIONS UNLABORED. NO DISTRESS NOTED. SITTING IN SIDE OF BED TALKING WITH ROOMATE.
[2018-08-02 00:11] VITALS: BP 131/44
--- NOTE | 2018-08-02 01:20 | NUR ---
AWAKE AND IN WHEELCHAIR ROLLING IN HALLWAY. STATES HE CANT SLEEP. RESPIRATIONS UNLABORED.
--- NOTE | 2018-08-02 03:45 | NUR ---
SITTING IN WHEELCHAIR IN ROOM. STATES HE ISNT SLEEPY. RESPIRATIONS UNLABORED.
[2018-08-02 05:53] VITALS: BP 150/70
[2018-08-02 07:26] LABS: BASOPHILS 0.2 % (0-2); EOSINOPHILS 5.8 % (0-7); HEMOGLOBIN 10.6 g/dL (13.5-17.5); IMMATURE GRANULOCYTES 0.2 % (0-5); LYMPHOCYTES 25.9 % (15-50); MCH 31.5 pg (26.0-34.0); MCHC 33.1 g/dL (31.0-37.0); MCV 95.2 fL (80.0-100.0); MEAN PLATELET VOLUME 9.8 fL (7.4-10.4); MONOCYTES 9.2 % (2-11); NEUTROPHILS 58.7 % (40-80); PLATELET COUNT 123 10x3/uL (130-400); RBC 3.36 10x6/uL (4.20-6.10); RDW 14.5 % (11.5-14.5); WBC 5.9 10x3/uL (4.8-10.8)
[2018-08-02 07:39] LABS: ANION GAP 20.7 mmol/L (8-16); CALCIUM 9.1 mg/dL (8.5-10.1); CARBON DIOXIDE 27.1 mmol/L (21.0-32.0); CREATININE - SERUM 11.2 mg/dL (0.6-1.3); POTASSIUM - SERUM 3.8 mmol/L (3.5-5.1)
--- NOTE | 2018-08-02 08:30 | NUR ---
PT AM MEDS ADMINISTERED. PT DENIES NEEDS. WCTM.
[2018-08-02 08:31] VITALS: BP 158/81
[2018-08-02 12:06] VITALS: BP 166/78
[2018-08-02 19:15] VITALS: BP 115/59
--- NOTE | 2018-08-02 20:50 | NUR ---
SIT UP IN WHEELCHAIR, CALL LIGHT IN REACH.
--- NOTE | 2018-08-02 22:02 | NUR ---
PT HAS ALARM WAIVER, UP OUT OF BED, STATES FORGOT TO BRING PHONE PERSONAL CARE WORKER, I ASKED WHERE HIS PHONE WAS SAID IN TOP DRAWER PULLED OUT WALLET AND PUT ON BEDSIDE TABLE, ASKED WHERE HE WAS GOING STATED WANTED TO GO TO GET HIS DOGS THEY WERE OLD AND NEEDED HIM. FLUIDS AND CALL LIGHT WITHIN REACH, PT IS NON COMPLIANT WITH SAFETY AND HIS CARE
[2018-08-03] VITALS: BP 145/63
--- NOTE | 2018-08-03 04:15 | NUR ---
SIT UP IN WHEELCHAIR. CALL LIGHT IN REACH.
[2018-08-03 06:00] VITALS: BP 116/43
--- NOTE | 2018-08-03 08:15 | NUR ---
PT RESTING IN BED WITH EYES OPEN CALL LIGHT IN REACH NO PROBLEMS WILL MONITER
--- NOTE | 2018-08-03 10:30 | NUR ---
Reviewed chart and spoke with pt Pt is on a Renal ADA mechanical soft diet. Pt ate 100% of all meals on 08/01/18. Pt is tolerating soft foods well Encouraged good po intake to help optimize progress RD following
[2018-08-03 12:15] VITALS: BP 114/54
--- NOTE | 2018-08-03 17:05 | NUR ---
PT RESTING IN BED EYES OPEN CALL LIGHT IN REACH WILL MONITER
--- NOTE | 2018-08-03 17:42 | NUR ---
UP IN WC.TALKING WITH NEIGHBOR.DENIES NEEDS.
--- NOTE | 2018-08-03 19:40 | NUR ---
GREETED PATIENT AND INTRODUCED MYSELF HIS NURSE FOR THE EVENING. PATIENT IS LAYING IN BED IN SUPINE POSITION AND DENIES ANY NEEDS AT THIS TIME. CALL LIGHT IN REACH.
[2018-08-04] VITALS: BP 120/82
--- NOTE | 2018-08-04 01:33 | NUR ---
PATIENT ASLEEP WITH EYES CLOSED LAYING ON LEFT SIDE. RESPIRATIONS EVEN. NO S/S OF DISTRESS. CALL LIGHT IN REACH.
--- NOTE | 2018-08-04 05:52 | NUR ---
PATIENT LAYING IN BED RESTING COMFORTABLY. DENIES ANY NEEDS AT THIS TIME. CALL LIGHT IN REACH.
[2018-08-04 06:00] VITALS: BP 137/64
--- NOTE | 2018-08-04 07:20 | NUR ---
PT RESTING QUIETLY. CALL LIGHT IN REACH. EYES CLOSED. BED IN LOW. SIDE RAILS X2. NO SIGNS OF DISTRESS OR PAIN. WILL CONTINUE TO MONITOR.
[2018-08-04 07:52] LABS: ANION GAP 21.1 mmol/L (8-16); BASOPHILS 0.2 % (0-2); CALCIUM 9.1 mg/dL (8.5-10.1); CARBON DIOXIDE 25.4 mmol/L (21.0-32.0); CREATININE - SERUM 10.9 mg/dL (0.6-1.3); EOSINOPHILS 6.3 % (0-7); HEMATOCRIT 30.9 % (42.0-54.0); HEMOGLOBIN 10.4 g/dL (13.5-17.5); IMMATURE GRANULOCYTES 0.3 % (0-5); LYMPHOCYTES 22.8 % (15-50); MCHC 33.7 g/dL (31.0-37.0); MCV 95.1 fL (80.0-100.0); MONOCYTES 10.9 % (2-11); NEUTROPHILS 59.5 % (40-80); PLATELET COUNT 125 10x3/uL (130-400); POTASSIUM - SERUM 4.5 mmol/L (3.5-5.1); RBC 3.25 10x6/uL (4.20-6.10); RDW 14.6 % (11.5-14.5); WBC 6.2 10x3/uL (4.8-10.8)
[2018-08-04 11:32] VITALS: BP 131/56
--- NOTE | 2018-08-04 12:00 | NUR ---
WHEELED PT BY BED TO DIALYSIS. DENIES NEEDS OR PAIN.
--- NOTE | 2018-08-04 13:45 | NUR ---
PT SENT TO DIALYSIS BY BED. DENIES NEEDS BEFORE LEAVING THE FLOOR.
--- NOTE | 2018-08-04 16:21 | NUR ---
GOT REPORT FROM DIALYSIS THAT BP DROPPED TO 40/32 WHILE IN DIALYSIS. BP NOW 137/57 AND 100% ON ROOM AIR. PT IS SLIGHTLY CONFUSED TO TIME AND DATE. BS WAS 85. WILL CONTINUE TO MONITOR. CALL LIGHT IN REACH.
--- NOTE | 2018-08-04 16:25 | NUR ---
REVIEWED ASSMT WITH NURSE MATHEUS.PT IS SLIGHTLY CONFUSED TO TIME.STATES SOMETIMES THIS HAPPENS AFTER HRAAC5UDN.FOLLOWS INSTRUCTION.RIGHT SIDE SLIGHTLY WEAKER THAN LEFT.VSS STABLE.FSBS 85.PULSE OX 85% AND RESPS IS EASY AND REGULAR.WILL CONTINUE TO MONITOR.
--- NOTE | 2018-08-04 17:05 | NUR ---
CARE TEAM MEETING: PATIENT PROGRESSING IN THERAPY. TENATIVE DISCHARGE DATE IS 08/12/18. WILL CONTNUE TO FOLLOW WITH PATIENT AND WILL ASSIST WITH NEEDS.
--- NOTE | 2018-08-04 17:25 | NUR ---
PT LYING IN BED. CALL LIGHT IN REACH. NO SIGNS OF DISTRESS OR PAIN. WCTM
[2018-08-04 18:15] VITALS: BP 142/54
--- NOTE | 2018-08-04 19:23 | NUR ---
AWAKE AND ALERT. RESPIRATIONS UNLABORED. UP IN WHEELCHAIR ROLLING IN HALLWAY. STATES HE FEELS OK NOW. STATES HE HAD A BLOOD PRESSURE DROP DURING DIALYSIS. BUT "I DO THAT ALL THE TIME". NO DISTRESS NOTED.
[2018-08-04 23:54] VITALS: BP 157/62
--- NOTE | 2018-08-05 00:02 | NUR ---
MIDNIGHT VITAL SIGNS DONE AND BP 157/62. AWAKE AND ALERT AND RESPIRATIONS UNLABORED. SITTING IN WHEELCHAIR IN ROOM. STATES HE IS ABOUT TO GO BACK TO BED. NO DISTRESS NOTED.
--- NOTE | 2018-08-05 02:02 | NUR ---
RESTING IN BED WITH EYES CLOSED AND RESPIRATIONS UNLABORED. NO DISTRESS NOTED. CALL LIGHT IN REACH.
--- NOTE | 2018-08-05 05:15 | NUR ---
AWWAKE AND ALERT. SITTING IN WHEELCHAIR IN ROOM. QUIET HOURS. SLEPT AT LONG INTERVALS. BLOOD SUGAR 233 THIS AM. ALERT AND ORIENTED WITH SKIN WARM AND DRY. MEDICATED FOR LEFT ANKLE/FOOT PAIN. SEE MAR. WILL CONTINUE TO MONITOR.
[2018-08-05 05:33] VITALS: BP 145/55
[2018-08-05 11:47] VITALS: BP 154/58
--- NOTE | 2018-08-05 13:08 | NUR ---
SITTING UP IN BED IN HIS ROOM EATING LUNCH. DENIES NEEDS OR C/O. CALL LIGHT IN REACH
--- NOTE | 2018-08-05 15:36 | NUR ---
ROLLING AROUND IN BERNARD IN . DENIES PAIN OR SOB.
[2018-08-05 18:16] VITALS: BP 150/70
--- NOTE | 2018-08-05 18:49 | NUR ---
ROLLING AROUND IN WC ON UNIT. DENIES NEEDS OR PAIN.
--- NOTE | 2018-08-05 20:04 | NUR ---
AWAKE AND ALERT. SITTING IN WHEELCHAIR IN ROOM. RESPIRATIONS UNLABORED. NO DISTRESS NOTED.
[2018-08-05 21:20] VITALS: BP 159/61
[2018-08-06 00:19] VITALS: BP 142/66
--- NOTE | 2018-08-06 01:47 | NUR ---
SITTING IN THERAPY ROOM PUTTING PUZZLE TOGETHER. STATES HE CANT SLEEP. NO DISTRESS NOTED.
[2018-08-06 05:04] VITALS: BP 185/77
--- NOTE | 2018-08-06 07:39 | NUR ---
SITTING UP ON SIDE OF BED WAITING ON BREAKFAST. DENIES NEEDS OR C/O. RUE FISTULA NOTED.
--- NOTE | 2018-08-06 08:46 | NUR ---
EATING BREAKFAST IN ROOM. FEEDS HIMSELF EACH MEAL. DENIES NEEDS OR C/O. RUE IS RESERVED. CALL LIGHT IN REACH
[2018-08-06 09:47] LABS: ANION GAP 20.5 mmol/L (8-16); CARBON DIOXIDE 24.3 mmol/L (21.0-32.0); CREATININE - SERUM 11.4 mg/dL (0.6-1.3); POTASSIUM - SERUM 3.8 mmol/L (3.5-5.1)
[2018-08-06 09:48] LABS: BASOPHILS 0.2 % (0-2); EOSINOPHILS 5.7 % (0-7); HEMATOCRIT 26.8 % (42.0-54.0); HEMOGLOBIN 9.1 g/dL (13.5-17.5); IMMATURE GRANULOCYTES 0.2 % (0-5); LYMPHOCYTES 25.3 % (15-50); MCH 32.2 pg (26.0-34.0); MCV 94.7 fL (80.0-100.0); MEAN PLATELET VOLUME 9.2 fL (7.4-10.4); MONOCYTES 8.9 % (2-11); NEUTROPHILS 59.7 % (40-80); PLATELET COUNT 123 10x3/uL (130-400); RBC 2.83 10x6/uL (4.20-6.10); RDW 14.3 % (11.5-14.5); WBC 4.7 10x3/uL (4.8-10.8)
[2018-08-06 11:32] VITALS: BP 95/65
--- NOTE | 2018-08-06 11:46 | NUR ---
SITTING IN WC IN THERAPY ROOM. DENIES NEEDS OR C/O. WHEELS SELF AROUND UNIT IN WC. HE STATES HE IS BORED AND LIKES TO LOOK AROUND.
--- NOTE | 2018-08-06 15:34 | NUR ---
STILL IN DIALYSIS
--- NOTE | 2018-08-06 17:43 | NUR ---
BACK FROM DIALYSIS. REFUSED SCHEDULED LONG ACTING INSULIN. DID NOT NEED REGULAR INSULIN FSBS WAS 122. HE IS IN WC IN HIS ROOM TALKING ON HIS PHONE.
[2018-08-06 18:01] VITALS: BP 140/65
--- NOTE | 2018-08-06 19:12 | NUR ---
PATIENT IS SLEEPING. BED IS DOWN LOW WITH SIDE RAILS UP X2. CALL LIGHT IS IN REACH.
[2018-08-06 20:22] VITALS: BP 124/62
--- NOTE | 2018-08-06 22:18 | NUR ---
PT IS RESTING QUIETLY IN BED WITH EYES CLOSED. NO ACUTE DISTRESS NOTED.
--- NOTE | 2018-08-07 00:28 | NUR ---
PT RESTING IN BED WITH EYES CLOSED.
--- NOTE | 2018-08-07 05:55 | NUR ---
PT RESTING IN BED WITH EYES CLOSED. AWOKE EASILY TO VERBAL STIMULI. NO NEEDS VOICED. TOLERATED AM MED WITHOUT DIFFICULTY.
[2018-08-07 05:56] VITALS: BP 121/70
--- NOTE | 2018-08-07 07:34 | NUR ---
PT RESTING QUIETLY. EYES CLOSED. BED IN LOW. SIDE RAILS X2. CALL LIGHT IN REACH. NO SIGNS OF DISTRESS OR PAIN. RESP EVEN AND UNLABORED. WILL CONTINUE TO MONITOR.
--- NOTE | 2018-08-07 08:03 | NUR ---
ASSISTED TO SIDE OF BED.REPORTS STILL WEAK FROM YESTERDAY.STATES HAS NOT HAD A NIGHT QUITE LIKE THAT BEFORE.INSTRUCTED NOT TO GET UP ALONE UNTIL STRENGTH COMES BACK AFTER HAVING HAD HD.
--- NOTE | 2018-08-07 11:11 | NUR ---
PT RESTING QUIETLY. CALL LIGHT IN REACH. PT DENIES NEEDS OR PAIN. PT STATED HE DIDNT SLEEP WELL LAST NIGHT THATS WHY HES SO TIRED TODAY.
[2018-08-07 11:43] VITALS: BP 150/60
--- NOTE | 2018-08-07 16:45 | NUR ---
PT BS WAS 65. APPLE JUICE AND BARRERA CRACKERS WERE GIVEN. WILL RECHECK.
--- NOTE | 2018-08-07 17:16 | NUR ---
PT BS NOW 132. PT ALERT AND AWAKE. DENIES NEEDS AT THIS TIME. CALL LIGHT IN REACH. WILL CONTINUE TO MONITOR.
[2018-08-07 17:53] VITALS: BP 122/54
--- NOTE | 2018-08-07 19:15 | NUR ---
PATIENT IS RESTING IN HIS BED. HE DENIES ANY NEEDS AT THIS TIME. HIS BED IS DOWN LOW WITH SIDE RAILS UP X2 AND CALL LIGHT IN REACH.
--- NOTE | 2018-08-07 20:53 | NUR ---
PT IS RESTING IN BED WATCHING TV. ALERT AND ORIENTED X 3. DENIES NEEDS AT THIS TIME. PT STATES HE IS FEELING MUCH BETTER TODAY THAN YESTERDAY. NO ACUTE DISTRESS NOTED.
[2018-08-08 00:23] VITALS: BP 115/71
[2018-08-08 05:50] VITALS: BP 113/65
--- NOTE | 2018-08-08 05:54 | NUR ---
PT RESTING IN BED WITH EYES CLOSED. AWOKE EASILY TO VERBAL STIMULI. TOLERATED AM MED WITHOUT DIFFICULTY. PT STATES: "I DIDNT SLEEP A WINK ALL NIGHT LONG." I TOLD HIM, HE LOOKED ASLEEP EVERY TIME I POKED MY HEAD IN THE DOOR, AND HE SAID, "WELL I WASNT."
[2018-08-08 08:32] VITALS: BP 128/53
--- NOTE | 2018-08-08 13:06 | NUR ---
PATIENT ALERT AND ORIENTED. UP IN WHEELCHAIR MOST OF THE MORNING. PROPELS SELF UP AND DOWN HALLWAYS AND TO THERAPY ROOM. ATE 100% OF BREAKFAST.C/O HEADACHE AND REQUESTED TYLENOL WHICH WAS GIVEN TO HIM WITH GOOD RESULTS. BLOOD GLUCOSE AT 1130 WAS 79. JUICE AND BARRERA CRACKERS WERE GIVEN TO HIM AND HE ATE THEM. ASSISTED BACK TO BE BECAUSE HE COMPLAINED OF FEELING LIGHT HEADED. SITTING UP EATING LUNCH AT THIS TIME. NO OTHER COMPLAINTS. WILL CONTINUE TO MONITOR. CALL LIGHT WITHIN REACH.
[2018-08-08 15:02] VITALS: BP 146/66
[2018-08-08 15:07] VITALS: BP 146/66
--- NOTE | 2018-08-08 19:30 | NUR ---
PATIENT IS IN THE THERAPY ROOM PUTTING A PUZZLE TOGETHER. HE DENIES ANY NEEDS.
--- NOTE | 2018-08-08 21:55 | NUR ---
PT UP IN THE GYM WORKING ON A PUZZLE. NO NEEDS VOICED.
--- NOTE | 2018-08-08 23:00 | NUR ---
PT REQUESTED A SHOWER. ASSISTED INTO THE SHOWER. PT SHOWERED INDEPENDENTLY.
[2018-08-09 00:51] VITALS: BP 112/63
--- NOTE | 2018-08-09 00:51 | NUR ---
PT IN GYM WORKING ON A PUZZLE. HE STATES HE CANNOT SLEEP.
--- NOTE | 2018-08-09 04:01 | NUR ---
PT RESTING IN BED WITH EYES CLOSED. NO DISTRESS NOTED.
[2018-08-09 06:10] VITALS: BP 114/61
--- NOTE | 2018-08-09 06:14 | NUR ---
PT SITTING IN WC IN HIS ROOM. STATES DENZEL BEEN UP AND DOWN ALL NIGHT. I JUST CANT SEEM TO SLEEP MORE THAN A FEW MINUTES. DENZEL BEEN THIS WAY EVER SINCE I STARTED ON DIALYSIS A YEAR AGO. NO NEEDS VOICED.
[2018-08-09 07:18] LABS: ANION GAP 20.8 mmol/L (8-16); BASOPHILS 0.3 % (0-2); CARBON DIOXIDE 28.8 mmol/L (21.0-32.0); CREATININE - SERUM 11.6 mg/dL (0.6-1.3); EOSINOPHILS 6.9 % (0-7); HEMATOCRIT 28.1 % (42.0-54.0); HEMOGLOBIN 9.5 g/dL (13.5-17.5); IMMATURE GRANULOCYTES 0.2 % (0-5); LYMPHOCYTES 20.2 % (15-50); MCH 31.8 pg (26.0-34.0); MCHC 33.8 g/dL (31.0-37.0); MEAN PLATELET VOLUME 9.1 fL (7.4-10.4); MONOCYTES 8.5 % (2-11); NEUTROPHILS 63.9 % (40-80); PLATELET COUNT 128 10x3/uL (130-400); POTASSIUM - SERUM 3.6 mmol/L (3.5-5.1); RBC 2.99 10x6/uL (4.20-6.10); RDW 14.1 % (11.5-14.5)
--- NOTE | 2018-08-09 11:09 | NUR ---
PATIENT ALERT AND ORIENTED SITTING UP IN WHEELCHAIR. C/O BACK PAIN AND MEDICATED WITH PRN TYLENOL WITH GOOD RESULTS. ATE 100% OF BREAKFAST. UP IN WHEELCHAIR AND PROPELLS SELF UP AND DOWN HALLWAYS. RUTH GARCIA TO MONITOR.
[2018-08-09 12:04] VITALS: BP 176/72
--- NOTE | 2018-08-09 17:43 | NUR ---
TAKEN TO DIALYSIS VIA BED AT 12:00. RETURNED TO UNIT VIA BED AT 16:00. C/O PAIN TO BACK. MEDICATED WITH PRN TYLENOL . WILL CONTINUE TO MONITOR. CALL LIGHT WITHIN REACH.
[2018-08-09 18:36] VITALS: BP 117/51
[2018-08-09 20:00] VITALS: BP 126/55
--- NOTE | 2018-08-09 20:20 | NUR ---
THE PATIENT WAS SITTING IN HIS WHEELCHAIR AND WATCHING TELEVISION WHEN STAFF ENTERED HIS ROOM. PATIENT WAS EDUCATED ON THE USE OF A CALL LIGHT AND DEMONSTRATES UNDERSTANDING VIA TEACHABCK METHOD. THE PATIENT APPEARS COMFORTABLE WITH NO QUESTIONS OR CONCERNS AT THIS TIME.
--- NOTE | 2018-08-10 02:09 | NUR ---
PATIENT APPEARS TO BE SLEEPING. BED IS IN THE LOW POSITION WITH SIDERAILS X2 ANDC ALL LIGHT WITHIN REACH.
--- NOTE | 2018-08-10 09:52 | NUR ---
Nutrition Follow Up: Chart reviewed Diet: Renal ADA [facility] Soft PO Intake: 82% meal avg I>O BM: 08/08/18 Labs reviewed - Glucose elevated Meds noted including Lasix, Humulin Rec continue current diet. RD following.
[2018-08-10 11:41] VITALS: BP 129/61
--- NOTE | 2018-08-10 12:32 | NUR ---
PT APPEARS VERY SLEEPY AT THIS TIME. PT DID DO THERAPY TODAY. ALERT AND ORIENTED WITH CONFUSION NOTED. PT HAD SLEEPING PILL LAST NIGHT. PT STATES " I JUST FEEL VERY TIRED, I TOOK A SLEEPING PILL LAST NIGHT." NO C/O PAIN OR DISCOMFORT NOTED OR VOICED. NO S/SX OF DISTRESS NOTED. WILL CONTINUE TO MONITOR FOR ANY CHANGES.
--- NOTE | 2018-08-10 20:02 | NUR ---
PATIENT RECEIVED LAYING IN BED WATCHING TV. PATIENT VITAL SIGNS & ASSESSMENT DONE. PATIENT BED LOW. CALL LIGHT WITHIN REACH. WILL CONTINUE TO MONITOR.
[2018-08-11] VITALS: BP 116/52
--- NOTE | 2018-08-11 01:32 | NUR ---
RESTING IN BED WITH RESPIRATIONS UNLABORED. NO DISTERSS NOTED. CALL LIGHT IN REACH.
--- NOTE | 2018-08-11 04:04 | NUR ---
PATIENT AWAKE WATCHING TV. BED LOW. ALARM ON. CALL LIGHT WITHIN PATIENTS HAND. WILL CONTINUE TO MONITOR.
[2018-08-11 06:00] VITALS: BP 136/60
[2018-08-11 07:30] LABS: BASOPHILS 0.2 % (0-2); EOSINOPHILS 5.3 % (0-7); HEMATOCRIT 29.6 % (42.0-54.0); HEMOGLOBIN 10.4 g/dL (13.5-17.5); MCH 32.6 pg (26.0-34.0); MCHC 35.1 g/dL (31.0-37.0); MCV 92.8 fL (80.0-100.0); MONOCYTES 8.6 % (2-11); NEUTROPHILS 59.9 % (40-80); PLATELET COUNT 138 10x3/uL (130-400); RBC 3.19 10x6/uL (4.20-6.10); RDW 14.2 % (11.5-14.5); WBC 5.5 10x3/uL (4.8-10.8)
[2018-08-11 07:36] LABS: ANION GAP 15.5 mmol/L (8-16); CALCIUM 8.9 mg/dL (8.5-10.1); CREATININE - SERUM 11.2 mg/dL (0.6-1.3); POTASSIUM - SERUM 3.5 mmol/L (3.5-5.1)
[2018-08-11 11:37] VITALS: BP 129/57
--- NOTE | 2018-08-11 15:38 | NUR ---
OT RESTUBG UB BED WITH EYES OPEN CALL LIGHT IN REACH WILL MONITER
--- NOTE | 2018-08-11 16:45 | NUR ---
UP IN WC.DENIES NEEDS.
[2018-08-11 18:05] VITALS: BP 105/56
--- NOTE | 2018-08-11 19:49 | NUR ---
PT UP IN WHEELCHAIR. CALL LIGHT IN REACH. PT DENIES NEEDS OR PAIN. PT STATED HES GONNA WHEEL HIMSELF TO THERAPY GYM AND LOOK OUT THE WINDOWS. WILL CONTINUE TO MONITOR.
[2018-08-11 21:19] VITALS: BP 113/47
[2018-08-12 00:25] VITALS: BP 143/53
--- NOTE | 2018-08-12 00:58 | NUR ---
PT RESTING QUIETLY. CALL LIGHT IN REACH. NO SIGNS OF DISTRESS OR PAIN
--- NOTE | 2018-08-12 05:32 | NUR ---
PT RESTING QUIETLY. CALL LIGHT IN REACH. NO SIGNS OF DISTRESS OR PAIN
[2018-08-12 05:59] VITALS: BP 138/62
--- NOTE | 2018-08-12 08:00 | NUR ---
CL IN REACH.NO DISTRESS.
--- NOTE | 2018-08-12 08:15 | NUR ---
PT RESTING IN BED WITH EYES OPEN CALL LIGHT IN REACH NO PROBLEMS WILL MONITER
--- NOTE | 2018-08-12 10:15 | NUR ---
PATIENT DISCHARGING HOME TODAY. [facility] WILL PROVIDE THERAPY AT HOME. PATIENT WILL CONTINUE SAME HD DAYS AT [facility] ON - @ 1:00. NO NEW DME NEEDED AT THIS TIME. PATIENT WILL SEE DR. GOMEZ AT HD CLINIC. PATIENT WILL CALL [facility] FOR AN APPOINTMENT. DR. PHILLIPS 09/02/18 @ 10:00. PATIENT CHOICE FORM FOR HOME HEALTH AND [facility] FORMS SIGNED AND COPY GIVEN TO PATIENT AND FILED IN CHART. DISCHARGE INSTRUCTIONS WITH FIM DATA FAXED TO PCP AND TO HOME HEALTH.
--- NOTE | 2018-08-12 13:00 | NUR ---
PT DISCHARGED TO HOME WITH FRIEND VIA WHEELCHAIR DISCHARGE SUMMARY AND DISCHARGE MEDS REVIEWED WITH PT NO QUESTIONS OR CONCERNS ALL MEDS CALLED INTO [facility]
--- NOTE | 2018-08-13 17:01 | RHP ---
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 HISTORY OF PRESENT ILLNESS: The patient is a 73-year-old gentleman who is admitted to the rehab with a working diagnosis of encephalomalacia. The patient apparently has this at the left parietal lobe and cytotoxic edema or encephalomalacia of the left occipital lobe following previous CVA. He has a history of hypertension, hyperlipidemia, coronary artery disease, coronary artery bypass grafting and stent placement, CVAs, TIAs, diabetes, dementia, chronic back pain, end-stage renal disease, presented to ER on 07/26/2018 with complaints of having passed out after his hemodialysis treatment. The patient states that he has been having some really low blood pressures at time. During hemodialysis, he developed left-sided numbness in his left arm and confusion, lasted approximately 2 hours. He was also noted to be admitted with nephrology consult. CT showed evidence of a previous infarcts and encephalomalacia was present in the left parietal lobe. There was a decreased density in the deep white matter of the superior parietal lobe. Carotid Doppler showed bilateral 50-70% stenosis of the carotid arteries, but he is also status post bilateral carotid endarterectomies. Dr. Carmona was consulted. He previously lived alone with his dog. He is independent with ADLs and mobility using a cane for stability. He and his friends help him get around and he takes a cab to dialysis when needed. Currently, he is weak and fatigued, has fair balance. He was able to ambulate 250 feet with PT with use of rolling walker and gait belt. He had to stop 4 times to catch his breath. He is very imbalanced and definitely needs inpatient rehab to get back to his prior level of functioning. COMORBIDITIES: In this patient include left-sided weakness, CVA, syncope and collapse, bilateral carotid stenosis, end-stage renal disease, weakness, hypertension, hyperlipidemia, aortic valve sclerosis, mild dementia and chronic back pain. PAST MEDICAL HISTORY: Significant for CVA, numbness, weakness. He has a history of hypertension, sick sinus syndrome. PAST SURGICAL HISTORY: Includes knee surgery, appendectomy, tonsillectomy, adenoidectomy, dialysis catheter pacemaker placement, coronary artery bypass grafting, stents. ALLERGIES: METHADONE. CURRENT MEDICATIONS: Include furosemide 40 mg every other day. He is on heparin injection. He is on folic acid 1 tab daily, Sevelamer 2400 mg t.i.d. with meals, Zoloft 25 mg daily, Protonix 40 mg daily, insulin NPH 25 units b.i.d., Plavix 75 mg daily, Coreg 3.125 mg b.i.d. with meals, aspirin 81 mg daily. He is on a glucose replacement protocol for low blood sugars. He is on intermediate resistance sliding scale with Humulin and Tylenol 650 every 4 hours p.r.n. HISTORY AND PHYSICAL [id number] MARC CHDAWICK HABITS: No current alcohol or tobacco use. FAMILY HISTORY: Noncontributory. SOCIAL HISTORY: The patient hopes to return back home and get back to his prior level of functioning. REVIEW OF SYSTEMS: GENERAL: He denies weakness or fatigue. HEENT: He denies cold, cough, or congestion. CARDIOVASCULAR: He denies chest pain. PHYSICAL EXAMINATION: VITAL SIGNS: Stable, afebrile. GENERAL: A well-developed male in no acute distress, alert upon exam. HEENT: Normocephalic and atraumatic. Mucosa moist. NECK: Supple. No lymphadenopathy. LUNGS: Clear at this time. HEART: Regular rate and rhythm. No murmurs, rubs or gallops. ABDOMEN: Benign. EXTREMITIES: No clubbing, cyanosis or edema. NEUROLOGIC: Mainly intact. He does have noted weakness. LABORATORY DATA: His white count is 5.9, H&H of 11 and 34 and platelet count is noted to be 123. His sodium is 143, potassium 4.1, BUN and creatinine of 52 and 10.3 and blood sugar is noted to be 131. ASSESSMENT: This is a 73-year-old gentleman admitted to the rehab with a working diagnosis of encephalomalacia, probably from his previous cerebrovascular accidents. The patient has potential to make improvement. We will institute the following multidisciplinary therapies including, but not limited to physical, occupational, respiratory, speech, nutritional services, prosthetics and orthotics. Given his complex medical condition and risk for more complications, rehabilitation services cannot be provided at a low level of care such as long-term facility. PLAN: 1. Admit to [facility] rehab for intensive inpatient therapy to include the following disciplines: A. Physical therapy to improve gait, all transfer skills and bed mobility to a modified independent level. B. Occupational therapy to a modified independent level. C. Case management to assist with discharge planning and placement options. D. Nutrition to assist with nutritional needs. E. Rehabilitation nursing to assist in monitoring the underlying medical conditions and to assist with any type of bowel or bladder management. 2. The patient's current medication and medical care will be continued. 3. The patient will be placed on standard fall precautions. 4. We will keep him with hemodialysis and make sure renal seen him during his stay. 5. I am going to follow up in the a.m. TRANSINT:[id number] Voice Confirmation ID: [id number] DOCUMENT ID: [id number] HISTORY AND PHYSICAL [id number] MARC CHADWICK notes whether there has been none or any medical/functional change since admission: - No change since pradmission screen. ALVARO attests patient continues to be appropriate for IRF: - Continues to be appropriate. KAZ MARI MD at 1701 CC: [id number] DICTATION DATE: 07/30/18 0902 ASSOCIATE MARKETING MANAGER: 07/30/18 1007 DIS IN 08/12/18 [facility] [address] [place] [address]
== END 2018-08-12 16:52 | disposition home health service (06) | DRG 56 ==
LOC: D.REHAB 16:23
PROVIDERS: Internal Medicine Nephrology; ADMIT Emergency Medicine; ATTEND Emergency Medicine
DX: I69.398 Other sequelae of cerebral infarction (principal); N18.6 End stage renal disease; I12.0 Hypertensive chronic kidney disease with stage 5 chronic kidney disease or end stage renal disease; G93.89 Other specified disorders of brain; Z99.2 Dependence on renal dialysis; I65.23 Occlusion and stenosis of bilateral carotid arteries; R55 Syncope and collapse; E78.5 Hyperlipidemia, unspecified; F03.90 Unspecified dementia, unspecified severity, without behavioral disturbance, psychotic disturbance, mood disturbance, and anxiety; I35.8 Other nonrheumatic aortic valve disorders; G89.29 Other chronic pain

== ENCOUNTER → 2018-11-25 11:05 | Outpatient (CLI) | payer MEDICARE ==
[2018-07-30 13:14] VITALS: BMI 25.7
== END | disposition home or self-care (01) ==
LOC: D.US 11:05
PROVIDERS: ATTEND Internal Medicine Cardiovascular Disease
DX: I65.23 Occlusion and stenosis of bilateral carotid arteries (principal)

== ENCOUNTER 2018-12-31 15:22 | Emergency (ER) | payer MEDICARE ==
[2018-07-30 13:14] VITALS: BMI 25.7
== END 2018-12-31 15:44 | disposition left against medical advice (07) ==
LOC: D.ER 15:22
DX: R20.2 Paresthesia of skin (principal)

== ENCOUNTER 2019-01-02 14:15 | Emergency (ER) | payer OTHER ==
[~2019-01-02] VITALS: Ht 165.1 cm; Wt 67.4 kg
[2019-01-02 14:43] VITALS: Ht 165.1 cm; Wt 67.4 kg
[2019-01-02 15:11] LABS: BASOPHILS 0.4 % (0-2); EOSINOPHILS 1.8 % (0-7); HEMATOCRIT 34.8 % (42.0-54.0); HEMOGLOBIN 11.8 g/dL (13.5-17.5); LYMPHOCYTES 20.2 % (15-50); MCH 31.7 pg (26.0-34.0); MCHC 33.9 g/dL (31.0-37.0); MCV 93.5 fL (80.0-100.0); MEAN PLATELET VOLUME 8.8 fL (7.4-10.4); MONOCYTES 7.9 % (2-11); NEUTROPHILS 69.7 % (40-80); PLATELET COUNT 115 10x3/uL (130-400); RBC 3.72 10x6/uL (4.20-6.10); RDW 14.8 % (11.5-14.5)
[2019-01-02 15:26] LABS: ALBUMIN 3.6 g/dL (3.4-5.0); ANION GAP 15.1 mmol/L (8-16); BILIRUBIN - TOTAL 0.41 mg/dL (0.2-1.3); CALCIUM 8.2 mg/dL (8.5-10.1); CARBON DIOXIDE 29.5 mmol/L (21.0-32.0); CREATININE - SERUM 8.4 mg/dL (0.6-1.3); POTASSIUM - SERUM 3.6 mmol/L (3.5-5.1); URIC ACID 5.4 mg/dL (2.6-7.2)
[2019-01-02] MEDS ORDERED: HYDROCODON-ACE1 EAC7 PO (18:28)
[2019-01-02 18:46] VITALS: BP 124/62
== END 2019-01-02 19:02 | disposition home or self-care (01) ==
LOC: D.ER 14:15
PROVIDERS: Emergency Medicine
DX: M79.672 Pain in left foot (principal)

== ENCOUNTER → 2019-01-10 15:40 | Outpatient (CLI) | payer MEDICARE ==
[2019-01-02 14:43] VITALS: BMI 24.7
[~2019-01-10 15:40] MED LIST changes: +ELIQUIS2.5 MG PO; +GLIMEPIRIDE1 MG PO; +NEPHRO-VITE RX1 TAB PO; +RisperDAL PO
== END | disposition home or self-care (01) ==
LOC: D.US 15:40
PROVIDERS: ATTEND Internal Medicine Nephrology
DX: M79.605 Pain in left leg (principal); R20.0 Anesthesia of skin

== ENCOUNTER 2019-01-13 09:28 | Inpatient (IN) | payer MEDICARE ==
[~2019-01-13] VITALS: Ht 165.1 cm; Wt 69.1 kg
[2019-01-13] VITALS (13 sets, daily range): BP systolic 91–168; BP diastolic 48–93; BMI 25.0
--- NOTE | ~2019-01-13 | HEMODYNAMI ---
PATIENT:MARC CHADWICK MEDICAL RECORD: [id number] : 49 LOCATION:[place] [address] ADMISSION DATE: 01/13/19 Generatedon:01/14/201913:05 Patient name: MARC CHADWICK Patient #: [id number] SSN: [id number] : 1945 Date of study: 01/14/2019 Page: Of Hemodynamic Procedure Report Patient Data Patient Demographics Procedure consent was obtained First Name: MARC Gender: Male Last Name: NETTA : 1945 Middle Initial: S Age: 74 year(s) Patient #: [id number] Race: SSN: [id number] Additional ID: [id number] Contact details Address: [address] [place] [address] State: [place] City: [place] Zip code: [address] Past Medical History Allergies Allergen Reaction Date Comments Reported Other allergy 10/01/2014 METHADONE Other allergy 04/28/2016 Methadone Other allergy 09/22/2016 Methadone Other allergy 02/23/2018 methadone Other allergy 01/14/2019 methadone Admission Admission Data Admission Date: 01/13/2019 Admission Time: 15:03 Room #: [facility] Procedure Procedure Types Cath Procedure Peripheral Cath Diagnostic Procedure Abd/Extremity Extremities Bilat Lower Extremity Procedure Description Procedure Date Procedure Date: 01/14/2019 Procedure Start Time: 11:38 Procedure End Time: 13:04 Procedure Staff Name Function Shaun Camp MD Performing Physician TSERING BENDER RT Monitor Madelyn Hart RN Nurse Bianca Manley RN Nurse Dyllan Izaguirre RT Scrub Procedure Data Cath Procedure Fluoroscopy Diagnostic fluoroscopy Total fluoroscopy Time: time: 39.5 min 39.5 min Diagnostic fluoroscopy Total fluoroscopy dose: 294 dose: 294 mGy mGy Entry Location Entry Primary Successful Side Size Upsize Upsize Entry Closure Succes sful Closure Location (Fr) 1 (Fr) 2 (Fr) Remarks Device Remarks Femoral Left 5 Fr 6 Fr 6 Fr Exoseal artery Long Short Popliteal Left 6 Fr Short Procedure Medications Medication Administration Route Dosage Lidocaine 1% added to field 20 Heparin Flush Bag added to field 3 bags (1000units/500ml NS) Benadryl I.V. 25 mg Versed I.V. 0.5 mg Fentanyl I.V. 25 mcg Versed I.V. 0.5 mg Fentanyl I.V. 25 mcg Heparin Bolus I.V. 5000 units Versed I.V. 0.5 mg Fentanyl I.V. 25 mcg Benadryl I.V. 25 mg Versed I.V. 0.5 mg Fentanyl I.V. 25 mcg Versed I.V. 0.5 mg Fentanyl I.V. 25 mcg Hemodynamics Rest Heart Rate: 63 (bpm) Snapshots Pre Cath Intra NCS Post Cath Vital Signs Time Heart Resp SPO2 etCO2 NIBP (mmHg) Rhythm Pain Sedation Rate (ipm) (%) (mmHg) Status Level (bpm) 10:01:56 72 17 100 38.3 169/58(145) NSR 0 (11) 10(A) , No pain 10:06:55 71 41 99 0 Measuring NSR 0 (11) 10(A) , No pain 10:07:12 69 30 100 39.8 180/84(118) NSR 0 (11) 10(A) , No pain 10:11:38 67 13 99 42.1 175/95(139) NSR 0 (11) 10(A) , No pain 10:16:06 67 16 99 26.3 181/77(135) NSR 0 (11) 8(A) , No pain 10:20:38 68 20 100 42.9 164/81(145) NSR 0 (11) 8(A) , No pain 10:25:02 70 7 100 40.6 175/83(144) NSR 0 (11) 8(A) , No pain 10:29:23 71 7 99 35.3 156/79(128) NSR 0 (11) 8(A) , No pain 10:33:20 67 7 99 24.8 125/107(115) NSR 0 (11) 8(A) , No pain 10:37:32 69 7 100 42.1 138/75(99) NSR 0 (11) 8(A) , No pain 10:41:52 70 7 97 28.6 141/60(85) NSR 0 (11) 8(A) , No pain 10:46:08 64 7 98 33.8 138/72(93) NSR 0 (11) 8(A) , No pain 10:50:24 67 6 96 36.1 127/74(103) NSR 0 (11) 8(A) , No pain 10:55:23 66 12 99 38.3 Measuring NSR 0 (11) 8(A) , No pain 10:55:27 71 12 99 38.3 128/67(102) NSR 0 (11) 8(A) , No pain 11:00:16 61 9 97 15.7 116/75(100) NSR 0 (11) 8(A) , No pain 11:05:15 70 9 99 27 Measuring NSR 0 (11) 8(A) , No pain 11:05:20 68 8 99 27 146/74(118) NSR 0 (11) 8(A) , No pain 11:08:30 70 5 145/76(111) NSR 0 (11) 8(A) , No pain 11:12:46 73 13 94 38.3 120/81(106) NSR 0 (11) 8(A) , No pain 11:16:56 66 6 33.1 108/73(92) NSR 0 (11) 8(A) , No pain 11:21:02 67 12 98 27 97/74(88) NSR 0 (11) 8(A) , No pain 11:25:55 69 8 100 30.1 150/72(103) NSR 0 (11) 8(A) , No pain 11:30:19 68 5 100 3 129/61(97) NSR 0 (11) 8(A) , No pain 11:35:18 66 14 99 38.3 Measuring NSR 0 (11) 8(A) , No pain 11:35:26 68 14 99 38.3 124/60(113) NSR 0 (11) 8(A) , No pain 11:40:25 64 11 98 34.5 Measuring NSR 0 (11) 8(A) , No pain 11:40:39 64 9 34.5 161/70(130) NSR 0 (11) 8(A) , No pain 11:44:59 67 13 98 38.3 133/70(110) NSR 0 (11) 8(A) , No pain 11:49:15 66 6 100 11.2 121/69(106) NSR 0 (11) 8(A) , No pain 11:54:15 59 9 100 38.3 Measuring NSR 0 (11) 8(A) , No pain 11:54:17 62 9 100 37.6 152/68(121) NSR 0 (11) 8(A) , No pain 11:58:43 64 10 99 13.5 136/62(93) NSR 0 (11) 8(A) , No pain 12:02:57 65 13 100 38.3 140/76(114) NSR 0 (11) 8(A) , No pain 12:07:15 64 8 94 11.2 135/68(99) NSR 0 (11) 10(A) , No pain 12:12:14 63 12 100 0 Measuring NSR 0 (11) 10(A) , No pain 12:12:18 58 12 100 26.3 118/63(93) NSR 0 (11) 10(A) , No pain 12:16:28 81 10 100 37.5 132/70(106) NSR 0 (11) 10(A) , No pain 12:20:42 68 4 99 36.8 134/70(109) NSR 0 (11) 10(A) , No pain 12:25:41 65 12 100 37.5 136/76(104) NSR 0 (11) 10(A) , No pain 12:29:53 64 13 99 35.3 143/78(119) NSR 0 (11) 10(A) , No pain 12:34:07 61 6 99 36 144/81(105) NSR 0 (11) 10(A) , No pain 12:38:25 61 6 3.7 151/70(106) NSR 0 (11) 10(A) , No pain 12:42:43 58 1 100 31.5 142/71(99) NSR 0 (11) 10(A) , No pain 12:47:01 61 20 100 3.7 150/74(110) NSR 0 (11) 10(A) , No pain 12:51:21 61 7 99 0 152/75(113) NSR 0 (11) 10(A) , No pain 12:56:20 61 20 30.8 Measuring NSR 0 (11) 10(A) , No pain 12:56:35 61 18 99 36.8 145/74(90) NSR 0 (11) 10(A) , No pain 13:00:34 58 0 161/71(119) NSR 0 (11) 10(A) , No pain 13:04:50 61 10 0 150/76(123) NSR 0 (11) 10(A) , No pain Medications Time Medication Route Dose Verified Delivered Reason Notes Effec tiveness by by 10:12:34 Lidocaine 1% added 20ml Shaun Dunn used for to vial Conrado Camp MD procedure field UP 10:12:50 Heparin Flush added 3 Shaun Dunn used for Bag to bags Conrado Camp MD procedure (1000units/500ml field UP NS) 10:13:14 Benadryl I.V. 25 mg Shaun Dunn for Conrado Camp MD sedation 10:28:13 Versed I.V. 0.5 Shaun Madelyn for mg Tanner Camp RN sedation 10:28:27 Fentanyl I.V. 25 Shaun Madelyn for mcg Tanner Camp RN sedation 10:38:17 Versed I.V. 0.5 Shaun Madelyn for mg Tanner Camp RN sedation 10:38:25 Fentanyl I.V. 25 Shaun Madelyn for mcg Tanner Camp RN sedation 11:10:19 Heparin Bolus I.V. 5000 Shaun Madelyn Per units Tanner Camp RN physician 11:10:30 Versed I.V. 0.5 Shaun Madelyn for mg Tanner Camp RN sedation 11:10:38 Fentanyl I.V. 25 Shaun Madelyn for mcg Tanner Camp RN sedation 11:38:49 Benadryl I.V. 25 mg Shaun Madelyn for Tanner Camp RN sedation 11:38:57 Versed I.V. 0.5 Shaun Madelyn for mg Tanner Camp RN sedation 11:57:17 Fentanyl I.V. 25 Shaun Madelyn for mcg Tanner Camp RN sedation 12:05:48 Versed I.V. 0.5 Shaun Madelyn for Tanner Miller RN sedation 12:34:51 Fentanyl I.V. 25 Shaun Estrellai for Tanner Ulrich RN sedation Procedure Log Time Note 9:50:17 Dyllan Zina RT (R) (CV) sent for patient. Start room use. 9:50:20 Time tracking: Regular hours (M-F 7:00 - 5:00) 9:50:25 Plan of Care:Hemodynamics will remain stable., Cardiac rhythm will remain stable., Comfort level will be maintained., Respiratory function will remain adequate., Patient/ family verbilizes understanding of procedure., Procedure tolerated without complication., Recovers from procedure without complications.. 9:50:28 Signed procedure consent form obtained from patient. 9:50:30 Correct patient and procedure confirmed by team. 9:50:32 ECG and BP/O2 sat monitors applied to patient. 9:50:35 - 9:56:32 H&P Date Dictated: 01/13/2019 Within 30 days and on chart.. 9:56:33 Pre-procedure instructions explained to patient. 9:56:33 Pre-op teaching completed and patient verbalized understanding. 9:56:37 Patient NPO since Midnight. 9:56:48 Patient allergic to Other allergymethadone 9:56:50 Is the patient allergic to Iodine/contrast media? No. 9:57:36 Is patient on blood thinner?Yes 9:57:42 ACC The patient was administered the following blood thiners within the last 24 hours: ACCHeparin 9:59:50 Patient diabetic? Yes. 9:59:53 If diabetic: On Metformin? No 9:59:56 - 10:00:12 Previous problem with sedation/anesthesia? No ? 10:00:13 Snore? Yes 10:00:14 Sleep apnea? No 10:00:16 Deviated septum? No 10:00:17 Opens mouth fully? Yes 10:00:18 Sticks out tongue? Yes 10:00:21 Airway obstruction? No ? 10:00:25 Dentures? No ? 10:00:26 - 10:00:32 Baseline sample Acquired. 10:00:32 Vital chart was started 10:00:34 Full Disclosure recording started 10:00:47 - 10:01:33 IV patent on arrival in right forearm with 0.9% NaCl at O. 10:01:55 Bilateral groins area was prepped with chlora-prep and draped in steril e fashion 10:01:56 Alarms reviewed by Melonie Washburn 10:01:57 Sharps counted by scrub and verified by Apryl 10:02:01 - 10:02:09 Use device set IR Diagnostic 10:02:13 DUQUE 260 wire (I78131) opened to sterile field. 10:02:14 TUBING Contrast Injection High Pressure ([id number]) opened to sterile field. 10:02:15 SHEATH 5FR Bronwood (LGX450) opened to sterile field. 10:02:15 MICROPUNCTURE 4FR Cook (R55103) opened to sterile field. 10:02:16 Angiodynamics Omniflush 5Fr 65cm ([id number]) opened to sterile field. 10:02:18 ACIST Syringe (36097) opened to sterile field. 10:02:18 ACIST Hand Control (61812) opened to sterile field. 10:02:19 ACIST Manifold (47143) opened to sterile field. 10:02:20 Bag Decanter (2002S) opened to sterile field. 10:02:20 Sterile Angiographic Pack opened to sterile field. 10:02:21 Tegaderm 4 x 4 (1626W) opened to sterile field. 10:03:07 GLIDE CATHETER 5FR Cage Shift Manager H1 100cm (CG513) opened to sterile field. 10:03:09 GLIDE WIRE ANGLE 180cm (OH4340) opened to sterile field. 10:03:19 TORQUE DEVICE PLASTIC .038 ( TD01) opened to sterile field. 10:03:26 - 10:12:34 Lidocaine 1% 20ml vial added to field was administered by Shaun Camp MD; used for procedure; 10:12:50 Heparin Flush Bag (1000units/500ml NS) 3 bags added to field was administered by Shaun Camp MD; used for procedure; 10:13:14 Benadryl 25 mg I.V. was administered by Shaun Camp MD; for sedation; 10:22:27 Cordis 5Fr BRITE TIP 11cm sheath opened to sterile field. 10:26:15 Physician arrived 10:26:42 --------ALL STOP TIME OUT------ 10:26:56 Final Timeout: patient, procedure, and site verified with staff and physician. All members of the team are in agreement. 10:27:00 Bilateral groins site verified by team. 10:27:39 Fire Safety Assessment: A--An alcohol-based skin anteseptic being used preoperatively., C--Open oxygen or nitrous oxide is being used. 10:27:47 5) <15 or on dialysis Very severe, or end stage kidney failure. 10:28:13 Versed 0.5 mg I.V. was administered by Madelyn Hart RN; for sedation; 10:28:27 Fentanyl 25 mcg I.V. was administered by Madelyn Hart RN; for sedation; 10:28:39 - 10:29:10 Procedure started. 10:31:55 Local anesthetic to left femerol artery with Lidocaine 1% by Shaun Camp MD.INITIAL ACCESS ONLY 10:33:31 Access obtained with 4Fr micropunture. 10:35:44 AMPLATZ Super Stiff 75cm wire ([id number]) opened to sterile field. 10:35:58 A 5 Fr sheath was inserted into the Left Femoral artery 10:38:17 Versed 0.5 mg I.V. was administered by Madelyn Hart RN; for sedation; 10:38:25 Fentanyl 25 mcg I.V. was administered by Madelyn Hart RN; for sedation; 10:44:53 SHEATH 6FR Bronwood (BXX484) opened to sterile field. 10:45:17 Sheath upsized to a 6 Fr Long. 10:47:58 ROADRUNNER .035 145 glide wire (D81964) opened to sterile field. 10:49:58 CXI Catheter 90cm (Q13325) opened to sterile field. 10:59:11 CHOICE PT Extra Support J 300cm guide wire (7744250S3) opened to steril e field. 11:01:49 ROADRUNNER .035 145 glide wire (U83182) opened to sterile field. 11:06:13 Navicross Support Straight .035 150cm catheter (EX53824) opened to sterile field. 11:06:14 ROADRUNNER .035 260 glide wire (Z03717) opened to sterile field. 11:10:19 Heparin Bolus 5000 units I.V. was administered by Madelyn Hart RN; Per physician; 11:10:30 Versed 0.5 mg I.V. was administered by Madelyn Hart RN; for sedation; 11:10:38 Fentanyl 25 mcg I.V. was administered by Madelyn Hart RN; for sedation; 11:30:30 - 11:35:41 Left Pedal was prepped with chlora-prep and draped in sterile fashion. 11:38:16 Local anesthetic to Pedal area with Lidocaine 1% by hSaun Camp MD.INITIAL ACCESS ONLY 11:38:49 Benadryl 25 mg I.V. was administered by Madelyn Hart RN; for sedation; 11:38:57 Versed 0.5 mg I.V. was administered by Madelyn Hart RN; for sedation; 11:42:03 NITINOL .018 80cm wire (D506438) opened to sterile field. 11:42:21 MICROPUNCTURE 4FR Cook (Y56878) opened to sterile field. 11:42:30 Access obtained with 4Fr micropunture. 11:50:49 ROADRUNNER .035 260 glide wire (V31184) opened to sterile field. 11:55:01 SHEATH 6FR Slender (80-1660) opened to sterile field. 11:55:22 A 6 Fr slender sheath was inserted into the Left Pedal 11:57:17 Fentanyl 25 mcg I.V. was administered by Madelyn Hart RN; for sedation; 11:58:57 Navicross Support Straight .035 150cm catheter (RP13104) opened to sterile field. 12:05:48 Versed 0.5 mg I.V. was administered by Madelyn Hart RN; for sedation; 12:20:38 CHOICE PT Extra Support J 300cm guide wire (8201960C5) opened to steril e field. 12:24:27 Hawkone Medium Atherectomy System (H1-M) opened to sterile field. 12:32:17 INFLATOR BasixTOUCH (FT3722) opened to sterile field. 12:32:40 Inflate balloon Inflation number: 1 A IN.PACT Admiral 6 x 40 x 130 DCB Balloon ([id number]) was prepped and advanced across the Undefined1 , then inflated. 12:34:51 Fentanyl 25 mcg I.V. was administered by Madelyn Hart RN; for sedation; 12:51:48 Sheath removed intact; hemostasis achieved with Exoseal to the Left Femoral artery. 12:51:48 Sheath upsized to a 6 Fr Short. 12:53:02 Procedure ended.(Physican Out) 12:54:12 Fluoroscopy time 39.50 minutes. 12:54:17 Fluoroscopy dose: 294 mGy 12:54:17 Flurop Dose total: 294 12:54:29 Post left femerol artery:stable, clean and dry 12:54:40 Post procedure instruction explained to patient.Patient verbalizes understanding. 12:54:44 Procedure and supply charges have been captured, reviewed, submitted an d are correct. 13:04:48 Vital chart was stopped 13:04:52 Procedure ended. 13:04:52 Full Disclosure recording stopped Intervention Summary Intervention Notes Time ActionType Lesion and Equipment Used Action# Pressure Duration Attributes 12:32:40 Inflate Undefined1 IN.PACT 1 0 00:00 balloon Admiral 6 x 40 x 130 DCB Balloon ([id number]) Device Usage Item Name Manufacture Quantity Catalog Number Hospital Part Current Minimal Lot# / Charge Number Stock Stock Serial# Code DUQUE 260 wire [facility] 1 [id number] 912708 28193 771679 5 [id number] ([id number]) TUBING [facility] 1 [id number] 469233 326934 101092 5 [id number] Contrast Injection High Pressure (YNM524C) SHEATH 5FR Terumo 1 HDN183 592342 725024 154748 5 Bronwood (DDP866) MICROPUNCTURE [facility] 2 B76250 717414 858715 462500 5 4FR Cook (E31793) Angiodynamics Angiodynamics 1 82704240 238656 192208 874729 5 Omniflush 5Fr 65cm (52605240) ACIST Syringe Acist Medical 1 53190 566222 770327 734542 20 (21494) Systems Inc ACIST Hand Acist Medical 1 89468 864272 171306 397444 5 Control Systems Inc (31811) ACIST Manifold Acist Medical 1 63876 689576 155129 531491 5 (49556) Systems Inc Bag Decanter Microtek 1 2001S 322515 09705 496864 5 (2001S) Medical Inc. Sterile Cardinal 1 [id number] 250397 440230 5 Angiographic Health Pack Tegaderm 4 x 4 3M 1 1626W 483308 170232 534797 5 (1626W) GLIDE CATHETER Terumo 1 CG503 622624 696616 5 5FR COBRA 100cm (CG503) GLIDE CATHETER Lowry 1 CG513 382734 225477 5 5FR Cage Shift Manager Scientific H1 100cm (CG513) GLIDE WIRE Terumo 1 GJ6193 646966 285671 164899 5 ANGLE 180cm (JN5332) TORQUE DEVICE Lowry 1 TD01 408316 051551 644856 5 PLASTIC .038 ( Scientific TD01) Cordis 5Fr Cardinal 1 420432N 375218 417517 5 BRITE TIP 11cm Health sheath AMPLATZ Super Lowry 1 [id number] 798674 345877 291872 5 [id number] Stiff 75cm Scientific wire ([id number]) SHEATH 6FR Terumo 1 WYD009 634243 359435 418764 40 Bronwood (GMS066) [facility] 2 L20093 842479 741373 502410 5 8404923 .035 145 glide 3707271 wire (J05621) CXI Catheter Cook Medical 1 M22718 039087 917497 760137 5 9272066 90cm (G55598) CHOICE PT Lowry 2 [id number] 055893 029777 998984 5 [id number] Extra Support Scientific 58538530 J 300cm guide wire (3172022Y4) Navicross Terumo 2 WY56430 387227 092968 805415 5 Support Straight .035 150cm catheter (WI78259) [facility] 2 E58159 697517 820490 608925 5 5496137 .035 260 glide 4252101 wire (Z17344) NITINOL .018 Medtronic 1 K123682 561842 177829 5 [id number] 80cm wire (D568027) SHEATH 6FR Terumo 1 [id number] 565228 966099 585570 5 Slender (801060) Hawkone Medium Medtronic 1 H1-M 423201 07346621 5 [id number] Atherectomy System (H1-M) INFLATOR [facility] Medical 1 MY5574 063291 484535 124450 5 BasixTOUCH (UL0644) IN.PACT Medtronic 1 [id number] 422860 019092 997429 5 [id number] Admiral 6 x 40 x 130 DCB Balloon ([id number]) Signature Audit [place] Stage Time Signature Unsigned Intra-Procedure 01/14/2019 TSERING BENDER RT 1:05:18 PM (R) Signatures Monitor : TSERING BENDER RT Signature : Date : Time : [address] [address]
[~2019-01-13 09:28] MED LIST changes: -ELIQUIS2.5 MG PO; -GLIMEPIRIDE1 MG PO; -NEPHRO-VITE RX1 TAB PO; -RisperDAL PO
[2019-01-13 12:29] LABS: BASOPHILS 0.2 % (0-2); EOSINOPHILS 2.9 % (0-7); HEMATOCRIT 36.9 % (42.0-54.0); HEMOGLOBIN 12.6 g/dL (13.5-17.5); LYMPHOCYTES 25.1 % (15-50); MCH 32.2 pg (26.0-34.0); MCHC 34.1 g/dL (31.0-37.0); MCV 94.4 fL (80.0-100.0); MEAN PLATELET VOLUME 9.8 fL (7.4-10.4); NEUTROPHILS 62.8 % (40-80); RBC 3.91 10x6/uL (4.20-6.10); RDW 15.9 % (11.5-14.5); WBC 5.1 10x3/uL (4.8-10.8)
[2019-01-13 12:30] LABS: PLATELET COUNT 162 10x3/uL (130-400)
[2019-01-13 12:38] LABS: ALBUMIN 3.8 g/dL (3.4-5.0); ANION GAP 16.9 mmol/L (8-16); BILIRUBIN - TOTAL 0.47 mg/dL (0.2-1.3); CALCIUM 8.2 mg/dL (8.5-10.1); CARBON DIOXIDE 29.4 mmol/L (21.0-32.0); CREATININE - SERUM 6.8 mg/dL (0.6-1.3); POTASSIUM - SERUM 4.3 mmol/L (3.5-5.1)
[2019-01-13 16:01] LABS: HEMATOCRIT 39.6 % (42.0-54.0); HEMOGLOBIN 13.4 g/dL (13.5-17.5); MCH 32.4 pg (26.0-34.0); MCHC 33.8 g/dL (31.0-37.0); MCV 95.7 fL (80.0-100.0); MEAN PLATELET VOLUME 9.9 fL (7.4-10.4); RBC 4.14 10x6/uL (4.20-6.10)
[2019-01-13 16:16] LABS: WBC 6.8 10x3/uL (4.8-10.8)
[2019-01-13 16:40] LABS: INR 1.08 (0.85-1.17); PROTIME 13.5 SECONDS (11.6-15.0)
[2019-01-13 16:41] LABS: APTT 51.8 SECONDS (22.8-39.4)
--- NOTE | 2019-01-13 20:28 | MORECARE ---
CASE MANAGEMENT DISCHARGE SUMMARY PATIENT: MARC CHADWICK UNIT: [id number] ADM DATE: 01/13/19 AGE: 74 : 47 SEX: M ROOM/BED: [facility] AUTHOR: RADHA MCGRATH PHYSICIAN: REFERRING PHYSICIAN: FÁTIMA LEMUS MD DATE OF SERVICE: 01/13/19 Discharge Plan Patient Name: MARC CHADWICK [facility] [facility] 1945 Planned Disposition: Home or Self Care Anticipated Discharge Date: Discharge Date: Expected LOS: Initial Reviewer: [email or web address] Initial Review Date: 01/13/2019 Generated: 01/13/19 9:28 pm Patient Name: MARC CHADWICK Page [id number] at 2027 All edits/amendments must be made on the electronic document DICTATION DATE: 01/13/192027 FAMILY MEDICINE PHYSICIAN ASSISTANT: JANN 01/13/192027 RPT#: [id number] DC DATE: STATUS: ADM IN [facility] [address] [place] [address] END OF REPORT
--- NOTE | 2019-01-13 20:35 | MORECARE ---
CASE MANAGEMENT DISCHARGE SUMMARY PATIENT: MARC CHADWICK UNIT: [id number] ADM DATE: 01/13/19 AGE: 74 : 47 SEX: M ROOM/BED: [facility] AUTHOR: RADHA MCGRATH PHYSICIAN: REFERRING PHYSICIAN: FÁTIMA LEMUS MD DATE OF SERVICE: 01/13/19 Discharge Plan Patient Name: MARC CHADWICK [facility] [facility] 1945 Planned Disposition: Home or Self Care Anticipated Discharge Date: Discharge Date: Expected LOS: Initial Reviewer: [email or web address] Initial Review Date: 01/13/2019 Generated: 01/13/19 9:34 pm DCPIA - Discharge Planning Initial Assessment Updated by [email or web address]: Ester Dc on 01/13/19 8:32 pm * Is the patient Alert and Oriented? Yes * How many steps to enter\exit or inside your home? RAMP * PCP NO PCP * Pharmacy [facility] * Preadmission Environment Home Alone * ADLs Independent * Other Equipment W/C, WALKER, CANE * List name and contact numbers for known caregivers / representatives who currently or will assist patient after discharge: JULIO C PLEITEZ [facility]- [phone] * Verbal permission to speak to the caregivers and representatives has been obtained from the patient. N/A * Community resources currently utilized None * Please name any agencies selected above. STATES HE HAS THREW THEM ALL OUT * Additional services required to return to the preadmission environment? No * Can the patient safely return to the preadmission environment? Yes * Has this patient been hospitalized within the prior 30 days at any hospital? No Last DP export: 01/13/19 7:28 p Patient Name: MARC CHADWICK Page [id number] at 2035 All edits/amendments must be made on the electronic document DICTATION DATE: 01/13/192033 PHYSICAL INTEGRATION PRACTITIONER: JANN 01/13/192033 RPT#: [id number] DC DATE: STATUS: ADM IN [facility] [address] [place] [address] END OF REPORT
--- NOTE | 2019-01-13 20:42 | MORECARE ---
CASE MANAGEMENT DISCHARGE SUMMARY PATIENT: MARC CHADWICK UNIT: [id number] ADM DATE: 01/13/19 AGE: 74 : 47 SEX: M ROOM/BED: [facility] AUTHOR: ALCIDESDOC PHYSICIAN: REFERRING PHYSICIAN: FÁTIMA LEMUS MD DATE OF SERVICE: 01/13/19 Discharge Plan Patient Name: MARC CHADWICK Facility: [facility]:[place] : 1945 Planned Disposition: Home or Self Care Anticipated Discharge Date: Discharge Date: Expected LOS: Initial Reviewer: [email or web address] Initial Review Date: 01/13/2019 Generated: 01/13/19 9:41 pm Comments DCP- Discharge Planning Updated by [email or web address]: Ester Dc on 01/13/19 7:[address] Patient Name: MARC CHADWICK Admission Status: ER Accout number: [id number] Admission Date: 01-13-2019 : 1945 Admission Diagnosis: Attending: FÁTIMA LEMUS Current LOS: 1 Anticipated DC Date: Planned Disposition: Home or Self Care Primary Insurance: MEDICARE A & B Discharge Planning Comments: CM met with patient at bedside after explaining CM role and obtaining verbal consent. Patient lives at home with a roommate Ever and plans to return there upon discharge. Patient states he drove himself here on his electric scooter. Patient feels this would be a safe discharge. CM discussed availability / needs of home health and medical equipment. Patient denies any discharge needs at this time. Patient has HD MWF @ [facility]. Patient plans on driving himself home upon discharge. CM will continue to follow and assist as needed with discharge planning / needs. Cattyman: Ester Dc DCPIA - Discharge Planning Initial Assessment Updated by [email or web address]: Ester Dc on 01/13/19 8:32 pm * Is the patient Alert and Oriented? Yes * How many steps to enter\exit or inside your home? RAMP * PCP NO PCP * [facility] * Preadmission Environment Home Alone * ADLs Independent * Other Equipment W/C, WALKER, CANE * List name and contact numbers for known caregivers / representatives who currently or will assist patient after discharge: JULIO C PLEITEZ [facility]- [phone] * Verbal permission to speak to the caregivers and representatives has been obtained from the patient. N/A * Community resources currently utilized None * Please name any agencies selected above. STATES HE HAS THREW THEM ALL OUT * Additional services required to return to the preadmission environment? No * Can the patient safely return to the preadmission environment? Yes * Has this patient been hospitalized within the prior 30 days at any hospital? No Last DP export: 01/13/19 7:35 p Patient Name: MARC CHADWICK Page [id number] at 2042 All edits/amendments must be made on the electronic document DICTATION DATE: 01/13/192040 ALIGNING INSPECTOR: JANN 01/13/192040 RPT#: [id number] DC DATE: STATUS: ADM IN [facility] [address] [place] [address] END OF REPORT
[2019-01-14] VITALS (32 sets, daily range): BP systolic 116–159; BP diastolic 52–80; Ht 165.1 cm; Wt 69.1 kg
[2019-01-14 00:07] LABS: MCH 32.8 pg (26.0-34.0); MCHC 34.3 g/dL (31.0-37.0); MCV 95.6 fL (80.0-100.0); MEAN PLATELET VOLUME 8.7 fL (7.4-10.4); RBC 3.66 10x6/uL (4.20-6.10); RDW 16.4 % (11.5-14.5); WBC 5.3 10x3/uL (4.8-10.8)
[2019-01-14 06:18] LABS: ANION GAP 13.4 mmol/L (8-16); CALCIUM 8.2 mg/dL (8.5-10.1); CARBON DIOXIDE 32.2 mmol/L (21.0-32.0); CREATININE - SERUM 8.1 mg/dL (0.6-1.3); POTASSIUM - SERUM 4.6 mmol/L (3.5-5.1)
[2019-01-14 06:35] LABS: BASOPHILS 0.2 % (0-2); EOSINOPHILS 4.6 % (0-7); HEMATOCRIT 39.7 % (42.0-54.0); IMMATURE GRANULOCYTES 0.2 % (0-5); LYMPHOCYTES 17.7 % (15-50); MCH 31.6 pg (26.0-34.0); MCHC 32.7 g/dL (31.0-37.0); MCV 96.6 fL (80.0-100.0); MEAN PLATELET VOLUME 9.6 fL (7.4-10.4); MONOCYTES 10.2 % (2-11); NEUTROPHILS 67.1 % (40-80); PLATELET COUNT 145 10x3/uL (130-400); RBC 4.11 10x6/uL (4.20-6.10); RDW 16.4 % (11.5-14.5); WBC 6.5 10x3/uL (4.8-10.8)
[2019-01-14 08:55] LABS: INR 1.07 (0.85-1.17); PROTIME 13.4 SECONDS (11.6-15.0)
[2019-01-15] VITALS (19 sets, daily range): BP systolic 112–156; BP diastolic 31–88
[2019-01-15 00:17] LABS: HEMATOCRIT 37.9 % (42.0-54.0); HEMOGLOBIN 12.3 g/dL (13.5-17.5); MCH 31.4 pg (26.0-34.0); MCHC 32.5 g/dL (31.0-37.0); MCV 96.7 fL (80.0-100.0); MEAN PLATELET VOLUME 9.6 fL (7.4-10.4); RBC 3.92 10x6/uL (4.20-6.10); RDW 16.7 % (11.5-14.5); WBC 7.9 10x3/uL (4.8-10.8)
[2019-01-15 12:33] LABS: ANION GAP 18.5 mmol/L (8-16); CALCIUM 7.2 mg/dL (8.5-10.1); CARBON DIOXIDE 27.9 mmol/L (21.0-32.0); CREATININE - SERUM 9.9 mg/dL (0.6-1.3)
[2019-01-15 12:34] LABS: POTASSIUM - SERUM 5.4 mmol/L (3.5-5.1)
[2019-01-16] VITALS (24 sets, daily range): BP systolic 95–177; BP diastolic 30–82
[2019-01-16 06:12] LABS: ALBUMIN 2.9 g/dL (3.4-5.0); ANION GAP 14.4 mmol/L (8-16); BILIRUBIN - TOTAL 0.55 mg/dL (0.2-1.3); CALCIUM 7.9 mg/dL (8.5-10.1); CARBON DIOXIDE 26.8 mmol/L (21.0-32.0); PHOSPHOROUS 5.9 mg/dL (2.5-4.9)
[2019-01-16 06:13] LABS: CREATININE - SERUM 7.3 mg/dL (0.6-1.3); POTASSIUM - SERUM 4.2 mmol/L (3.5-5.1)
[2019-01-16 07:06] LABS: BASOPHILS 0.2 % (0-2); EOSINOPHILS 3.7 % (0-7); HEMATOCRIT 31.8 % (42.0-54.0); HEMOGLOBIN 10.5 g/dL (13.5-17.5); IMMATURE GRANULOCYTES 0.2 % (0-5); LYMPHOCYTES 21.7 % (15-50); MCH 31.7 pg (26.0-34.0); MCV 96.1 fL (80.0-100.0); MEAN PLATELET VOLUME 9.4 fL (7.4-10.4); MONOCYTES 11.1 % (2-11); NEUTROPHILS 63.1 % (40-80); RBC 3.31 10x6/uL (4.20-6.10); RDW 16.3 % (11.5-14.5)
[2019-01-16 07:09] LABS: PLATELET COUNT 93 10x3/uL (130-400); WBC 5.6 10x3/uL (4.8-10.8)
[2019-01-16 07:49] LABS: PLATELET ESTIMATE DECREASED
[2019-01-17] VITALS (13 sets, daily range): BP systolic 93–191; BP diastolic 21–70
[2019-01-17 01:36] LABS: HEMATOCRIT 27.8 % (42.0-54.0); HEMOGLOBIN 9.3 g/dL (13.5-17.5); MCH 31.6 pg (26.0-34.0); MCHC 33.5 g/dL (31.0-37.0); MCV 94.6 fL (80.0-100.0); MEAN PLATELET VOLUME 9.1 fL (7.4-10.4); RBC 2.94 10x6/uL (4.20-6.10); RDW 15.7 % (11.5-14.5); WBC 4.6 10x3/uL (4.8-10.8)
[2019-01-17 05:59] LABS: BASOPHILS 0 % (0-2); EOSINOPHILS 3.2 % (0-7); HEMOGLOBIN 9.2 g/dL (13.5-17.5); IMMATURE GRANULOCYTES 0.2 % (0-5); LYMPHOCYTES 13.8 % (15-50); MCH 32.3 pg (26.0-34.0); MCHC 34.1 g/dL (31.0-37.0); MCV 94.7 fL (80.0-100.0); MEAN PLATELET VOLUME 9.8 fL (7.4-10.4); MONOCYTES 11.1 % (2-11); NEUTROPHILS 71.7 % (40-80); PLATELET COUNT 82 10x3/uL (130-400); RBC 2.85 10x6/uL (4.20-6.10); RDW 15.8 % (11.5-14.5); WBC 4.9 10x3/uL (4.8-10.8)
[2019-01-17 06:10] LABS: ANION GAP 16.3 mmol/L (8-16); BILIRUBIN - TOTAL 0.48 mg/dL (0.2-1.3); CALCIUM 7.5 mg/dL (8.5-10.1); CARBON DIOXIDE 27.8 mmol/L (21.0-32.0); POTASSIUM - SERUM 4.1 mmol/L (3.5-5.1); PROTEIN - SERUM 6.2 g/dL (6.4-8.2)
[2019-01-17 09:51] LABS: PLATELET ESTIMATE DECREASED
[2019-01-17 09:54] LABS: ANISOCYTOSIS OCC
[2019-01-18 00:10] VITALS: BP 185/77
[2019-01-18 04:00] VITALS: BP 129/57
[2019-01-18 05:15] LABS: BASOPHILS 0.2 % (0-2); EOSINOPHILS 2.2 % (0-7); HEMATOCRIT 27.5 % (42.0-54.0); HEMOGLOBIN 9.3 g/dL (13.5-17.5); IMMATURE GRANULOCYTES 0.2 % (0-5); MCH 31.8 pg (26.0-34.0); MCHC 33.8 g/dL (31.0-37.0); MCV 94.2 fL (80.0-100.0); MEAN PLATELET VOLUME 9.5 fL (7.4-10.4); MONOCYTES 13.2 % (2-11); NEUTROPHILS 71.2 % (40-80); RBC 2.92 10x6/uL (4.20-6.10); RDW 15.5 % (11.5-14.5); WBC 4.6 10x3/uL (4.8-10.8)
[2019-01-18 05:26] LABS: PLATELET COUNT 102 10x3/uL (130-400)
[2019-01-18 05:38] LABS: ALBUMIN 3.1 g/dL (3.4-5.0); ANION GAP 15.8 mmol/L (8-16); BILIRUBIN - TOTAL 0.6 mg/dL (0.2-1.3); CALCIUM 8.3 mg/dL (8.5-10.1); CARBON DIOXIDE 27.2 mmol/L (21.0-32.0); CREATININE - SERUM 6.8 mg/dL (0.6-1.3); PROTEIN - SERUM 6.7 g/dL (6.4-8.2)
[2019-01-18 05:43] LABS: PHOSPHOROUS 4.3 mg/dL (2.5-4.9)
--- NOTE | 2019-01-18 07:53 | MORECARE ---
CASE MANAGEMENT DISCHARGE SUMMARY PATIENT: MARC CHADWICK UNIT: [id number] ADM DATE: 01/13/19 AGE: 74 : [birth year] SEX: M ROOM/BED: D.2105 AUTHOR: ALCIDESDOC PHYSICIAN: REFERRING PHYSICIAN: FÁTIMA LEMUS MD DATE OF SERVICE: 01/18/19 Discharge Plan Patient Name: MARC CHADWICK Facility: [facility]:[place] : 1945 Planned Disposition: Home or Self Care Anticipated Discharge Date: Discharge Date: Expected LOS: Initial Reviewer: [email or web address] Initial Review Date: 01/13/2019 Generated: 01/18/19 8:53 am Comments DCP- Discharge Planning Updated by [email or web address]: Ester Dc on 01/13/19 7:[address] Patient Name: MARC CHADWICK Admission Status: ER Accout number: [id number] Admission Date: 01-13-2019 : 1945 Admission Diagnosis: Attending: FÁTIMA LEMUS Current LOS: 1 Anticipated DC Date: Planned Disposition: Home or Self Care Primary Insurance: MEDICARE A & B Discharge Planning Comments: CM met with patient at bedside after explaining CM role and obtaining verbal consent. Patient lives at home with a roommate Ever and plans to return there upon discharge. Patient states he drove himself here on his electric scooter. Patient feels this would be a safe discharge. CM discussed availability / needs of home health and medical equipment. Patient denies any discharge needs at this time. Patient has HD MWF @ [facility]. Patient plans on driving himself home upon discharge. CM will continue to follow and assist as needed with discharge planning / needs. Quality Assurance Assessor: Ester Dc DCPIA - Discharge Planning Initial Assessment Updated by [email or web address]: Ester Dc on 01/13/19 8:32 pm * Is the patient Alert and Oriented? Yes * How many steps to enter\exit or inside your home? RAMP * PCP NO PCP * [facility] * Preadmission Environment Home Alone * ADLs Independent * Other Equipment W/C, WALKER, CANE * List name and contact numbers for known caregivers / representatives who currently or will assist patient after discharge: JULIO C PLEITEZ [facility]- [phone] * Verbal permission to speak to the caregivers and representatives has been obtained from the patient. N/A * Community resources currently utilized None * Please name any agencies selected above. STATES HE HAS THREW THEM ALL OUT * Additional services required to return to the preadmission environment? No * Can the patient safely return to the preadmission environment? Yes * Has this patient been hospitalized within the prior 30 days at any hospital? No Last DP export: 01/13/19 7:42 p Patient Name: MARC CHADWICK Page 81162 at 0753 All edits/amendments must be made on the electronic document DICTATION DATE: 01/18/19752 ENERGY CONSERVATION REPRESENTATIVE: JANN 01/18/19752 RPT#: [id number] DC DATE: STATUS: ADM IN [facility] [address] [place] [address] END OF REPORT
[2019-01-18 09:21] VITALS: BP 142/62
[2019-01-18 13:54] VITALS: BP 129/71
--- NOTE | 2019-01-18 17:27 | MORECARE ---
CASE MANAGEMENT DISCHARGE SUMMARY PATIENT: MARC CHADWICK UNIT: [id number] ADM DATE: 01/13/19 AGE: 74 : [birth year] SEX: M ROOM/BED: D.2107 AUTHOR: RADHA MCGRATH PHYSICIAN: REFERRING PHYSICIAN: FÁTIMA LEMUS MD DATE OF SERVICE: 01/18/19 Discharge Plan Patient Name: MARC CHADWICK Facility: [facility]:[place] : 1945 Planned Disposition: Inpatient Rehab Anticipated Discharge Date: 01/19/19 Discharge Date: Expected LOS: 6 Initial Reviewer: [email or web address] Initial Review Date: 01/13/2019 Generated: 01/18/19 6:27 pm Comments DCP- Discharge Planning Updated by [email or web address]: Elie Broderick on 01/18/19 4:[address] Patient Name: MARC CHADWICK Encounter No: [id number] : 1945 Primary Insurance: MEDICARE A & B Anticipated DC Date: 01-19-2019 Planned Disposition: Inpatient Rehab External Planned Provider: [facility] INPATIENT REH[facility] DCP follow-up note: CM SPOKE TO [facility] OF INPATIENT REHAB, AND PT IN ROOM REGARDING ORDER FOR INPATIENT REHAB AT [place]. INPATIENT AT [facility] PLANS TO ACCEPT PT WHEN STABLE, FOR REHAB. PT NOTIFIED, IN AGREEMENT WITH DISCHARGE TO INPATIENT REHAB. IMPORTANT MESSAGE FROM MEDICARE PROVIDED AND EXPLAINED. FOR DISCHARGE, NOTIFY INPATIENT REHAB AT [place]. [facility] IN[facility]IENT [facility] TO CONTACT MED 2 NURSE WITH ROOM NUMBER WHEN READY TO ACCEPT PT AND NURSE REPORT. CAMILLE Franco DCP- Discharge Planning Updated by [email or web address]: Ester cD on 01/13/19 7:[address] Patient Name: MARC CHADWICK Admission Status: ER Accout number: [id number] Admission Date: 01-13-2019 : 1945 Admission Diagnosis: Attending: FÁTIMA LEMUS Current LOS: 1 Anticipated DC Date: Planned Disposition: Home or Self Care Primary Insurance: MEDICARE A & B Discharge Planning Comments: CM met with patient at bedside after explaining CM role and obtaining verbal consent. Patient lives at home with a roommate Ever and plans to return there upon discharge. Patient states he drove himself here on his electric scooter. Patient feels this would be a safe discharge. CM discussed availability / needs of home health and medical equipment. Patient denies any discharge needs at this time. Patient has HD MWF @ [facility]. Patient plans on driving himself home upon discharge. CM will continue to follow and assist as needed with discharge planning / needs. Food Service Aide: Ester Dc DCPIA - Discharge Planning Initial Assessment Updated by [email or web address]: Ester Dc on 01/13/19 8:32 pm * Is the patient Alert and Oriented? Yes * How many steps to enter\exit or inside your home? RAMP * PCP NO PCP * [facility] * Preadmission Environment Home Alone * ADLs Independent * Other Equipment W/C, WALKER, CANE * List name and contact numbers for known caregivers / representatives who currently or will assist patient after discharge: JULIO C PLEITEZ [facility]- [phone] * Verbal permission to speak to the caregivers and representatives has been obtained from the patient. N/A * Community resources currently utilized None * Please name any agencies selected above. STATES HE HAS THREW THEM ALL OUT * Additional services required to return to the preadmission environment? No * Can the patient safely return to the preadmission environment? Yes * Has this patient been hospitalized within the prior 30 days at any hospital? 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
[2019-01-18 18:36] VITALS: BP 137/59
[2019-01-18 20:00] VITALS: BP 145/63
[2019-01-19] VITALS: BP 147/65
[2019-01-19 00:30] LABS: HEMATOCRIT 27.2 % (42.0-54.0); HEMOGLOBIN 9.4 g/dL (13.5-17.5); MCH 31.9 pg (26.0-34.0); MCHC 34.6 g/dL (31.0-37.0); MCV 92.2 fL (80.0-100.0); MEAN PLATELET VOLUME 9.8 fL (7.4-10.4); RBC 2.95 10x6/uL (4.20-6.10); RDW 15.5 % (11.5-14.5); WBC 5.2 10x3/uL (4.8-10.8)
[2019-01-19 04:00] VITALS: BP 140/57
[2019-01-19 06:01] LABS: BASOPHILS 0.2 % (0-2); EOSINOPHILS 5.3 % (0-7); HEMOGLOBIN 9.3 g/dL (13.5-17.5); IMMATURE GRANULOCYTES 0.2 % (0-5); LYMPHOCYTES 12.5 % (15-50); MCH 32.1 pg (26.0-34.0); MCHC 34.4 g/dL (31.0-37.0); MCV 93.1 fL (80.0-100.0); MEAN PLATELET VOLUME 10.1 fL (7.4-10.4); MONOCYTES 9.9 % (2-11); NEUTROPHILS 71.9 % (40-80); PLATELET COUNT 105 10x3/uL (130-400); RDW 15.5 % (11.5-14.5); WBC 5.1 10x3/uL (4.8-10.8)
[2019-01-19 06:25] LABS: ALBUMIN 2.9 g/dL (3.4-5.0); ANION GAP 14.9 mmol/L (8-16); BILIRUBIN - TOTAL 0.53 mg/dL (0.2-1.3); CALCIUM 8.5 mg/dL (8.5-10.1); CARBON DIOXIDE 26.6 mmol/L (21.0-32.0); CREATININE - SERUM 8.5 mg/dL (0.6-1.3); POTASSIUM - SERUM 3.5 mmol/L (3.5-5.1); PROTEIN - SERUM 6.4 g/dL (6.4-8.2)
[2019-01-19] MEDS ORDERED: ELIQUIS2.5 MG PO (08:16)
[2019-01-19] MEDS ORDERED: RisperDAL PO (08:17)
[2019-01-19] MEDS ORDERED: NEPHRO-VITE RX1 TAB PO (08:18)
--- NOTE | 2019-01-19 13:50 | MORECARE ---
CASE MANAGEMENT DISCHARGE SUMMARY PATIENT: MARC CHADWICK UNIT: [id number] ADM DATE: 01/13/19 AGE: 74 : [birth year] SEX: M ROOM/BED: D.2107 AUTHOR: RADHA MCGRATH PHYSICIAN: REFERRING PHYSICIAN: FÁTIMA LEMUS MD DATE OF SERVICE: 01/19/19 Discharge Plan Patient Name: MARC CHADWICK [facility] [facility] 1945 Planned Disposition: Inpatient Rehab Anticipated Discharge Date: 01/19/19 Discharge Date: 01/19/2019 Expected LOS: 6 Initial Reviewer: [email or web address] Initial Review Date: 01/13/2019 Generated: 01/19/19 2:50 pm Comments DCP- Discharge Planning Updated by [email or web address]: Elie Broderick on 01/18/19 4:[address] Patient Name: MARC CHADWICK Encounter No: [id number] : 1945 Primary Insurance: MEDICARE A & B Anticipated DC Date: 01-19-2019 Planned Disposition: Inpatient Rehab External Planned Provider: [facility] INPATIENT REHAB DCP follow-up note: CM SPOKE TO KUSHAL OF INPATIENT REHAB, AND PT IN ROOM REGARDING ORDER FOR INPATIENT REHAB AT [place]. INPATIENT AT [facility] PLANS TO ACCEPT PT WHEN STABLE, FOR REHAB. PT NOTIFIED, IN AGREEMENT WITH DISCHARGE TO INPATIENT REHAB. IMPORTANT MESSAGE FROM MEDICARE PROVIDED AND EXPLAINED. FOR DISCHARGE, NOTIFY INPATIENT REHAB AT [place]. [facility] INPATIENT REHAB TO CONTACT MED 2 NURSE WITH ROOM NUMBER WHEN READY TO ACCEPT PT AND NURSE REPORT. CAMILLE Franco DCP- Discharge Planning Updated by [id number]: Ester Dc on 01/13/19 7:[address] Patient Name: MARC CHADWICK Admission Status: ER Accout number: [id number] Admission Date: 01-13-2019 : 1945 Admission Diagnosis: Attending: FÁTIMA LEMUS Current LOS: 1 Anticipated DC Date: Planned Disposition: Home or Self Care Primary Insurance: MEDICARE A & B Discharge Planning Comments: CM met with patient at bedside after explaining CM role and obtaining verbal consent. Patient lives at home with a roommate Ever and plans to return there upon discharge. Patient states he drove himself here on his electric scooter. Patient feels this would be a safe discharge. CM discussed availability / needs of home health and medical equipment. Patient denies any discharge needs at this time. Patient has HD MWF @ [facility]. Patient plans on driving himself home upon discharge. CM will continue to follow and assist as needed with discharge planning / needs. Inspector Motor Vehicles: Ester Dc DCPIA - Discharge Planning Initial Assessment Updated by [email or web address]: Ester Dc on 01/13/19 8:32 pm * Is the patient Alert and Oriented? Yes * How many steps to enter\exit or inside your home? RAMP * PCP NO PCP * [facility] * Preadmission Environment Home Alone * ADLs Independent * Other Equipment W/C, WALKER, CANE * List name and contact numbers for known caregivers / representatives who currently or will assist patient after discharge: JULIO C PLEITEZ [facility]- [phone] * Verbal permission to speak to the caregivers and representatives has been obtained from the patient. N/A * Community resources currently utilized None * Please name any agencies selected above. STATES HE HAS THREW THEM ALL OUT * Additional services required to return to the preadmission environment? No * Can the patient safely return to the preadmission environment? Yes * Has this patient been hospitalized within the prior 30 days at any hospital? No Coverage Notice Reviewer: [id number] - Elie Broderick Notice Issued Date-Time: 01/18/2019 16:35 Notice Type: IM Discharge Notice Notice Delivered To: Patient Relationship to Patient: Food Service Ambassador Name: Delivery Method: HAND - Hand Delivered Lakisha Days: Prior Verbal Notification: Recipient Understood Notice: Yes Recipient Signature: Yes Med Rec Note Co-signed by Attending: Coverage Notice Comment: Last DP export: 01/18/19 4:27 p Patient Name: MARC CHADWICK Page [id number] at 1350 All edits/amendments must be made on the electronic document DICTATION DATE: 01/19/19 1350 HYDRAULIC ROCKBREAKER OPERATOR: JANN 01/19/19 1350 RPT#: [id number] DC DATE:01/19/19 STATUS: DIS IN [facility] [address] [place] [address] END OF REPORT
--- NOTE | 2019-01-19 14:05 | MORECARE ---
CASE MANAGEMENT DISCHARGE SUMMARY PATIENT: MARC CHADWICK UNIT: [id number] ADM DATE: 01/13/19 AGE: 74 : [birth year] SEX: M ROOM/BED: D.2105 AUTHOR: ALCIDES,DOC PHYSICIAN: REFERRING PHYSICIAN: FÁTIMA LEMUS MD DATE OF SERVICE: 01/19/19 Discharge Plan Patient Name: MARC CHADWICK Facility: [facility]:[place] : 1945 Planned Disposition: Inpatient Rehab Anticipated Discharge Date: 01/19/19 Discharge Date: 01/19/2019 Expected LOS: 6 Initial Reviewer: [email or web address] Initial Review Date: 01/13/2019 Generated: 01/19/19 3:04 pm Comments DCP- Discharge Planning Updated by [email or web address]: Elie Broderick on 01/19/19 12:[address] Patient Name: MARC CHADWICK Encounter No: [id number] : 1945 Primary Insurance: MEDICARE A & B Anticipated DC Date: 01-19-2019 Planned Disposition: HOME DCP follow-up note: CM RECEIVED ORDER THAT PT NEEDS TO GO TO THE BANK. CM SPOKE TO PT IN ROOM REGARDING ORDER. PT REPORTS HE NEEDS TO MAKE A POLICE REPORT A GIRL HE KNOWS USED HIS BANK CARD AND GOT $600 OUT OF HIS ACCOUNT. CM EXPLAINED TO PT THAT HE CAN DO THAT FROM THE HOSPITAL SIMPLY BY CALLING THE POLICE WHO WILL COME TO THE HOSPITAL. PT STATES HE HAS "BUSINESS" TO TAKE CARE OF. PT THEN STATED HE WILL CONSIDER STAYING FOR REHAB. CM OBSERVED PT STANDING IN THE [place], NURSE ADVISED PT WANTS TO GO HOME AND NOT REHAB. CM SPOKE TO PT IN HALLWAY, PT REPORTS HE DOES NOT NEED REHAB AND IS GOING HOME. CM ENCOURAGED PT TO STAY FOR REHAB, PT REPORTS THE DIALYSIS NURSE DID NOT KNOW WHAT SHE WAS DOING AND HE IS NOT STAYING. PT REPORTS HAVING A FRIEND FOR TRANSPORT IN FRONT OF THE HOSPITAL WAITING FOR HIM NOW. CM PAGED AND NOTIFIED SHANIA HAYWOOD. CM LATER SPOKE TO ADMIINSTRATOR NURSE MÉNDEZ WHO ASKED CM TO SPEAK TO PT AGAIN. CM SPOKE TO PT IN THE HALLWAY, PT STILL INSISTED ON GOING HOME AND DECLINES REHAB. PT DENIES DISCHARGE NEEDS, DECLINES HOME HEALTH SERVICES AND REPORTS HE IS GOING HOME NOW. CM NOTIFIED NURSE. CAMILLE Franco MANAGEMENT DCP- Discharge Planning Updated by [id number]: Elie Broderick on 01/18/19 4:[address] Patient Name: MARC CHADWICK Encounter No: [id number] : 1945 Primary Insurance: MEDICARE A & B Anticipated DC Date: 01-19-2019 Planned Disposition: Inpatient Rehab External Planned Provider: [facility] INPATIENT REHAB DCP follow-up note: CM SPOKE TO KUSHAL OF INPATIENT REHAB, AND PT IN ROOM REGARDING ORDER FOR INPATIENT REHAB AT [place]. INPATIENT AT [facility] PLANS TO ACCEPT PT WHEN STABLE, FOR REHAB. PT NOTIFIED, IN AGREEMENT WITH DISCHARGE TO INPATIENT REHAB. IMPORTANT MESSAGE FROM MEDICARE PROVIDED AND EXPLAINED. FOR DISCHARGE, NOTIFY INPATIENT REHAB AT [place]. [facility] INPATIENT REHAB TO CONTACT MED 2 NURSE WITH ROOM NUMBER WHEN READY TO ACCEPT PT AND NURSE REPORT. CAMILLE Franco DCP- Discharge Planning Updated by [id number]: Ester Dc on 01/13/19 7:[address] Patient Name: MARC CHADWICK Admission Status: ER Accout number: [id number] Admission Date: 01-13-2019 : 1945 Admission Diagnosis: Attending: FÁTIMA LEMUS Current LOS: 1 Anticipated DC Date: Planned Disposition: Home or Self Care Primary Insurance: MEDICARE A & B Discharge Planning Comments: CM met with patient at bedside after explaining CM role and obtaining verbal consent. Patient lives at home with a roommate Ever and plans to return there upon discharge. Patient states he drove himself here on his electric scooter. Patient feels this would be a safe discharge. CM discussed availability / needs of home health and medical equipment. Patient denies any discharge needs at this time. Patient has HD MWF @ [facility]. Patient plans on driving himself home upon discharge. CM will continue to follow and assist as needed with discharge planning / needs. Cable Rigger: Ester Dc DCPIA - Discharge Planning Initial Assessment Updated by [id number]: Ester Dc on 01/13/19 8:32 pm * Is the patient Alert and Oriented? Yes * How many steps to enter\\exit or inside your home? RAMP * PCP NO PCP * [facility] * Preadmission Environment Home Alone * ADLs Independent * Other Equipment W/C, WALKER, CANE * List name and contact numbers for known caregivers / representatives who currently or will assist patient after discharge: JULIO C PLEITEZ [facility]- [phone] * Verbal permission to speak to the caregivers and representatives has been obtained from the patient. N/A * Community resources currently utilized None * Please name any agencies selected above. STATES HE HAS THREW THEM ALL OUT * Additional services required to return to the preadmission environment? No * Can the patient safely return to the preadmission environment? Yes * Has this patient been hospitalized within the prior 30 days at any hospital? No Coverage Notice Reviewer: [id number] Farooq Broderick Notice Issued Date-Time: 01/18/2019 16:35 Notice Type: IM Discharge Notice Notice Delivered To: Patient Relationship to Patient: Lock Tender Chief Operator Name: Delivery Method: HAND - Hand Delivered Lakisha Days: Prior Verbal Notification: Recipient Understood Notice: Yes Recipient Signature: Yes Med Rec Note Co-signed by Attending: Coverage Notice Comment: Last DP export: 01/19/19 12:50 p Patient Name: MARC CHADWICK Page 99221 at 1405 All edits/amendments must be made on the electronic document DICTATION DATE: 01/19/191403 ACCOUNTS PAYABLE CLERK: JANN 01/19/191403 RPT#: [id number] DC DATE:01/19/19 STATUS: DIS IN [facility] [address] [place] [address] END OF REPORT
--- NOTE | 2019-01-20 06:08 | DS ---
PATIENT:MARC LEWIS :[birth year] MEDICAL RECORD: [id number] DISCHARGE SUMMARY ADMISSION DATE: 01/13/19 DISCHARGE DATE: 01/19/19 HISTORY: Mr. Lewis is a 74-year-old white male with end-stage renal disease, chronic dialysis with a poor social situation, was admitted with progressive ischemia of his left leg. HOSPITAL COURSE: The patient was taken to the interventional suite, where Dr. Camp did a posterior tibial cannulation with a TurboHawk procedure and a cannulation angioplasty of his lower extremity arteries, dorsalis pedis and posterior tibial. Following this procedure, his foot improved considerably. He was placed on Eliquis as per recommendation of IR. Underwent acute dialysis during this time and now will be transferred to rehab. He was stable at the time of discharge. His foot was markedly improved with reperfusion. DISCHARGE DIAGNOSES: 1. Severe peripheral vascular disease, status post angioplasty of peripheral arteries of foot. 2. End-stage renal disease, chronic dialysis. 3. Poor social situation. 4. Chronic anemia. PLAN: The patient will be transferred to inpatient rehab at this time, and we will continue to follow him there. He will continue his current meds, diet, and dialysis schedule. TRANSINT:[id number] Voice Confirmation ID: [id number] DOCUMENT ID: [id number] EMA GOMEZ MD at 0608 CC: [id number] DICTATION DATE: 01/19/19 0615 CLINICAL PHARMACIST: 01/19/19 0632 DIS IN 01/19/19 [address] [place] [address]
== END 2019-01-19 13:34 | DRG 270 ==
LOC: D.ER 09:28 → D.CVICU 15:03 → D.M2 01-17 10:25
PROVIDERS: Emergency Medicine; General Practice; Internal Medicine Cardiovascular Disease; ADMIT Internal Medicine Nephrology; ATTEND Internal Medicine Nephrology
PROC: 047L3Z1 Dilation of Left Femoral Artery using Drug-Coated Balloon, Percutaneous Approach (ICD-10-PCS; 2019-01-14)
PROC: 04CL3ZZ Extirpation of Matter from Left Femoral Artery, Percutaneous Approach (ICD-10-PCS; principal; 2019-01-14 10:39)
DX: I99.8 Other disorder of circulatory system (principal); N18.6 End stage renal disease; I12.0 Hypertensive chronic kidney disease with stage 5 chronic kidney disease or end stage renal disease; I73.9 Peripheral vascular disease, unspecified; E11.22 Type 2 diabetes mellitus with diabetic chronic kidney disease; Z99.2 Dependence on renal dialysis; Z95.0 Presence of cardiac pacemaker; E78.5 Hyperlipidemia, unspecified; D63.1 Anemia in chronic kidney disease; M79.672 Pain in left foot

== ENCOUNTER 2019-01-19 13:00 | Inpatient (IN) | payer MEDICARE ==
[~2019-01-19] VITALS: Ht 165.1 cm; Wt 74.8 kg
[~2019-01-19 13:00] MED LIST changes: +ELIQUIS2.5 MG PO; +NEPHRO-VITE RX1 TAB PO; +RisperDAL PO
[2019-01-20 10:02] VITALS: BP 136/52; BMI 27.5
[2019-01-20 15:21] VITALS: BMI 27.4
[2019-01-21 00:53] VITALS: BP 131/61
[2019-01-21 06:05] VITALS: BP 142/79
[2019-01-21 07:44] LABS: ANION GAP 14.2 mmol/L (8-16); CALCIUM 8.1 mg/dL (8.5-10.1); CARBON DIOXIDE 29.8 mmol/L (21.0-32.0); CREATININE - SERUM 9.2 mg/dL (0.6-1.3)
[2019-01-21 07:55] LABS: BASOPHILS 0.2 % (0-2); EOSINOPHILS 5.8 % (0-7); HEMATOCRIT 32.9 % (42.0-54.0); HEMOGLOBIN 11.2 g/dL (13.5-17.5); IMMATURE GRANULOCYTES 0.2 % (0-5); LYMPHOCYTES 22.3 % (15-50); MEAN PLATELET VOLUME 9.6 fL (7.4-10.4); NEUTROPHILS 60.5 % (40-80); RDW 15.4 % (11.5-14.5); WBC 5.7 10x3/uL (4.8-10.8)
[2019-01-21 07:57] LABS: PLATELET COUNT 190 10x3/uL (130-400)
[2019-01-21 11:59] VITALS: BP 122/48
[2019-01-21 17:00] VITALS: BP 161/69
[2019-01-22 00:11] VITALS: BP 159/65
[2019-01-22 06:11] VITALS: BP 123/51
[2019-01-22 07:21] LABS: BASOPHILS 0.2 % (0-2); EOSINOPHILS 6.3 % (0-7); HEMATOCRIT 30.9 % (42.0-54.0); HEMOGLOBIN 10.7 g/dL (13.5-17.5); IMMATURE GRANULOCYTES 0.2 % (0-5); LYMPHOCYTES 19.2 % (15-50); MCH 32.3 pg (26.0-34.0); MCHC 34.6 g/dL (31.0-37.0); MCV 93.4 fL (80.0-100.0); MEAN PLATELET VOLUME 9.1 fL (7.4-10.4); MONOCYTES 10.1 % (2-11); PLATELET COUNT 189 10x3/uL (130-400); RBC 3.31 10x6/uL (4.20-6.10); RDW 15.4 % (11.5-14.5)
[2019-01-22 07:39] LABS: ALBUMIN 3.3 g/dL (3.4-5.0); ANION GAP 15.2 mmol/L (8-16); BILIRUBIN - TOTAL 0.38 mg/dL (0.2-1.3); CALCIUM 8.3 mg/dL (8.5-10.1); CARBON DIOXIDE 29.3 mmol/L (21.0-32.0); CREATININE - SERUM 9.7 mg/dL (0.6-1.3); POTASSIUM - SERUM 3.5 mmol/L (3.5-5.1); PROTEIN - SERUM 7.4 g/dL (6.4-8.2)
[2019-01-22 08:00] VITALS: BP 158/74
[2019-01-22 12:00] VITALS: BP 135/55
[2019-01-22 17:36] VITALS: BP 165/66
[2019-01-22 23:23] VITALS: BP 114/63
[2019-01-23 06:11] VITALS: BP 130/62
[2019-01-23 08:52] VITALS: BP 137/45
[2019-01-23 12:00] VITALS: BP 138/68
[2019-01-23 18:12] VITALS: BP 179/77
[2019-01-23 23:40] VITALS: BP 128/51
[2019-01-24 06:20] VITALS: BP 134/55
[2019-01-24 07:19] LABS: BASOPHILS 0.2 % (0-2); EOSINOPHILS 3.5 % (0-7); HEMATOCRIT 27.7 % (42.0-54.0); HEMOGLOBIN 9.3 g/dL (13.5-17.5); IMMATURE GRANULOCYTES 0.4 % (0-5); LYMPHOCYTES 22.7 % (15-50); MCH 31.6 pg (26.0-34.0); MCHC 33.6 g/dL (31.0-37.0); MCV 94.2 fL (80.0-100.0); MEAN PLATELET VOLUME 9.1 fL (7.4-10.4); MONOCYTES 10.4 % (2-11); NEUTROPHILS 62.8 % (40-80); PLATELET COUNT 170 10x3/uL (130-400); RBC 2.94 10x6/uL (4.20-6.10); RDW 15.2 % (11.5-14.5); WBC 5.1 10x3/uL (4.8-10.8)
[2019-01-24 07:39] LABS: CALCIUM 8.6 mg/dL (8.5-10.1)
[2019-01-24 11:43] VITALS: BP 104/53
[2019-01-25 00:05] VITALS: BP 150/67
[2019-01-25 06:01] VITALS: BP 130/54
[2019-01-25 06:31] LABS: ANION GAP 13.8 mmol/L (8-16); CALCIUM 8.9 mg/dL (8.5-10.1); POTASSIUM - SERUM 3.8 mmol/L (3.5-5.1)
[2019-01-25 12:54] VITALS: BP 132/55
[2019-01-25 16:31] VITALS: BP 120/76
[2019-01-25 20:27] VITALS: BP 125/54
[2019-01-26 00:17] VITALS: BP 138/62
[2019-01-26 06:38] VITALS: BP 123/45
[2019-01-26 07:32] LABS: BASOPHILS 0.2 % (0-2); EOSINOPHILS 3.5 % (0-7); HEMATOCRIT 27.5 % (42.0-54.0); HEMOGLOBIN 9.3 g/dL (13.5-17.5); IMMATURE GRANULOCYTES 0.2 % (0-5); LYMPHOCYTES 20.8 % (15-50); MCH 31.7 pg (26.0-34.0); MCHC 33.8 g/dL (31.0-37.0); MCV 93.9 fL (80.0-100.0); MEAN PLATELET VOLUME 9.1 fL (7.4-10.4); NEUTROPHILS 65.3 % (40-80); RBC 2.93 10x6/uL (4.20-6.10); RDW 15.1 % (11.5-14.5); WBC 5.4 10x3/uL (4.8-10.8)
[2019-01-26 07:47] LABS: PLATELET COUNT 135 10x3/uL (130-400)
[2019-01-26 07:48] LABS: ANION GAP 15.7 mmol/L (8-16); CARBON DIOXIDE 26.6 mmol/L (21.0-32.0); POTASSIUM - SERUM 4.3 mmol/L (3.5-5.1)
[2019-01-26 07:53] LABS: CREATININE - SERUM 9.2 mg/dL (0.6-1.3)
[2019-01-26 11:34] VITALS: BP 152/60
[2019-01-26 18:00] VITALS: BP 142/61
[2019-01-26 20:52] VITALS: BP 152/61
[2019-01-27 00:06] VITALS: BP 132/55
[2019-01-27 05:53] VITALS: BP 139/53
[2019-01-27 08:00] VITALS: BP 146/61
[2019-01-27] MEDS ORDERED: HYDROCODON-ACE1 EAC7 PO ×2 (08:35→16:36)
[2019-01-27] MEDS ORDERED: GLIMEPIRIDE1 MG PO (08:35)
--- NOTE | 2019-01-27 08:36 | RHP ---
PATIENT: MARC CHADWICK MEDICAL RECORD: [id number] ACCOUNT: [id number] LOCATION:[facility] : [birth year] ADMISSION DATE: 01/20/19 REHABILITATION HISTORY AND PHYSICAL EXAMINATION POST ADMISSION PHYSICIAN EXAMINATION DATE OF ADMISSION: 01/20/2019 ADMITTING DIAGNOSES: Debility secondary to critical limb ischemia. HISTORY OF PRESENT ILLNESS: The patient presented to ED on 01/13/2019 secondary to left lower extremity pain that has been gradually worsening over the previous 2 weeks. He denied any injury or trauma. The patient had already been to the ED twice in the past month for the same pain. He has got end-stage renal disease, on hemodialysis. He is being compliant with his regimen. On exam of the left foot and ankle were very cold. He is always smiling and unable to obtain a pulse by palpation or Doppler. He was extremely sensitive to touch. CT after showed occlusion with collaterals and end-stage vascular disease, worse on the left than right. He was admitted with interventional radiology and cardiovascular surgery. He was placed on heparin and planned our intervention on 01/14/2019. He had an atherectomy and drug-coated balloon angioplasty of the origin of the left superficial femoral artery. The following day, he had improvement in his pain level. He has been followed by Dr. Camp. He also has had improvement in the color of his foot. By , the pain has significantly improved and adequate perfusion to the left foot is now pink and was looking much better. Heparin was discontinued. He was started on low dose Eliquis. The patient previously was moderately independent with ADLs and mobility using a walker or cane. He is currently mod to max assist for ADLs and mobility. He has ambulated 8 feet with PT. He has had prolonged immobility, which affects his tolerance to PT. He wants to regain his strength and be able to return home. COMORBIDITIES: Include history of CVA, anxiety, weakness, fatigue, cold left foot, foot pain, hyperlipidemia, diabetes, intractable pain, flqhp-kt-anidwkf renal disease. He has had critical limb ischemia, peripheral vascular disease, peripheral arterial disease, carotid artery disease, hypertension and end-stage renal disease. PAST MEDICAL HISTORY: Significant for CVA, TIA, neuropathy, diabetes, hypertension, known coronary artery disease. PAST SURGICAL HISTORY: Includes knee surgery, appendectomy, tonsillectomy and adenoidectomy. He has had pacemaker placement, coronary artery bypass grafting and a CEA. ALLERGIES: METHADONE. CURRENT MEDICATIONS: Include furosemide 40 mg every other day. He is on atorvastatin 40 mg daily, Zoloft 25 mg daily, folic acid with B complex 1 daily, Plavix 75 mg daily, aspirin 81 mg daily, Protonix 40 mg daily, Risperdal 0.25 mg at bedtime, Eliquis 2.5 mg b.i.d., [place] 5/325 one tab every 4 hours p.r.n., Coreg 3.125 mg b.i.d. with meals, Tylenol 650 mg every 6 hours, Renagel 2400 mg t.i.d. with meals. He is on a regular insulin sliding scale and polyethylene glycol 17 grams in 8 ounces of water daily. HISTORY AND PHYSICAL [id number] MARC CHADWICK HABITS: No current alcohol or tobacco use. FAMILY HISTORY: Noncontributory. SOCIAL HISTORY: The patient hopes to return back home and get back to his prior level of function or better now that he has had that vessel fixed. REVIEW OF SYSTEMS: GENERAL: He does complain of some generalized weakness. HEENT: He denies cold, cough, or congestion. CARDIOVASCULAR: He denies chest pain. PHYSICAL EXAMINATION: VITAL SIGNS: Stable, afebrile. GENERAL: A well-developed in no acute distress, alert upon exam. HEENT: Normocephalic and atraumatic. Mucosa moist. NECK: Supple. No lymphadenopathy. LUNGS: Clear at this time with no wheeze, rhonchi or rales. HEART: Regular rate and rhythm. No murmurs, rubs or gallops. ABDOMEN: Soft, benign, and nondistended. Positive bowel sounds times 4. EXTREMITIES: No clubbing, cyanosis or edema. He does have good warmth to his lower extremity and pedal pulses are appreciated. NEUROLOGIC: He does have numbness and tingling to his lower extremities. He has got a 2/5 muscular strength in the left and 3/5 on the right. LABORATORY DATA: White count is 5.7, H&H of 11 and 33 and platelet count was noted to be 190. Sodium is 138, potassium 4.0, BUN and creatinine of 48 and 9.2 and blood sugar is noted to be 76. 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 The patient has potential to make improvement. We instituted the following multidisciplinary therapies including but not limited to physical, occupational, respiratory, speech, nutritional services, prosthetics and orthotics. Given his complex medical condition and risks for more complications, rehabilitation services cannot be provided at a low level of care such as skilled nurse facility. PLAN: 1. Admit to [facility] rehab for intensive inpatient therapy to include the following disciplines: A. Physical therapy to improve gait, all transfer skills and bed mobility to a modified independent level. B. Occupational therapy to a modified independent level. C. Case management to assist with discharge planning and placement options. D. Nutrition to assist with nutritional needs. E. Rehabilitation nursing to assist in monitoring the patient's underlying medical conditions and to assist with any type of bowel or bladder management. 2. The patient's current medications will be continued. 3. Placed on standard fall precautions. 4. The patient's estimated length of stay is approximately 7-10 days. 5. We will discuss this patient during care team staff meeting this week and I will see again in the a.m. TRANSINT:[id number] Voice Confirmation ID: [id number] DOCUMENT ID: [id number] HISTORY AND PHYSICAL [id number] MARC CHADWICK notes whether there has been none or any medical/functional change since admission: - No change since the PAS ALVARO attests patient continues to be appropriate for IRF: - Remains appropriate for the MOU MAYELA MARI MD at 0836 CC: [id number] DICTATION DATE: 01/21/19 0825 MULTIPLE DRILL OPERATOR: 01/21/19 0932 ADM IN [facility] [address] [place] [address]
[2019-01-27 08:54] VITALS: Ht 165.1 cm; Wt 74.8 kg
[2019-01-27 12:10] VITALS: BP 156/61
== END 2019-01-27 13:10 | disposition short-term general hospital (02) | DRG 947 ==
LOC: D.REHAB 13:00
PROVIDERS: Internal Medicine Nephrology; ADMIT Emergency Medicine; ATTEND Emergency Medicine
DX: R53.81 Other malaise (principal); N18.6 End stage renal disease; N17.9 Acute kidney failure, unspecified; I12.0 Hypertensive chronic kidney disease with stage 5 chronic kidney disease or end stage renal disease; F41.9 Anxiety disorder, unspecified; E78.5 Hyperlipidemia, unspecified; E11.22 Type 2 diabetes mellitus with diabetic chronic kidney disease; I73.9 Peripheral vascular disease, unspecified; R53.1 Weakness; I99.8 Other disorder of circulatory system; L97.522 Non-pressure chronic ulcer of other part of left foot with fat layer exposed; I77.89 Other specified disorders of arteries and arterioles; D63.1 Anemia in chronic kidney disease; R53.83 Other fatigue

== ENCOUNTER 2019-01-27 12:12 | Inpatient (IN) | payer MEDICARE ==
[~2019-01-27] VITALS: Ht 165.1 cm; Wt 72.7 kg
[~2019-01-27 12:12] MED LIST changes: +GLIMEPIRIDE1 MG PO
[2019-01-27 13:34] VITALS: BP 156/61; Ht 165.1 cm; Wt 72.7 kg
[2019-01-27] MEDS ORDERED: HYDROCODON-ACE1 EAC7 PO (16:36)
--- NOTE | 2019-01-27 17:12 | MORECARE ---
CASE MANAGEMENT DISCHARGE SUMMARY PATIENT: MARC CHADWICK UNIT: [id number] ADM DATE: 01/27/19 AGE: 74 : [birth year] SEX: M ROOM/BED: D.2101 AUTHOR: RADHA MCGRATH PHYSICIAN: REFERRING PHYSICIAN: EMA GOMEZ MD DATE OF SERVICE: 01/27/19 Discharge Plan Patient Name: MARC CHADWICK Facility: [facility]:[place] : 1945 Planned Disposition: Home Anticipated Discharge Date: 01/27/19 Discharge Date: Expected LOS: 1 Initial Reviewer: [email or web address] Initial Review Date: 01/27/2019 Generated: 01/27/19 6:12 pm Comments DCP- Discharge Planning Updated by [email or web address]: Elie Broderick on 01/27/19 4:[address] Patient Name: MARC CHADWICK Encounter No: [id number] : 1945 Primary Insurance: MEDICARE A & B Anticipated DC Date: 01-27-2019 Planned Disposition: Home DCP follow-up note: CM SPOKE TO WOOD ROOM HAND NURSE SUNNI WHO INFORMED THAT DR. VICTORIA CAME AND STATED THAT PT HAS PROCEDURE SCHEDULED FOR , PT'S TRANSFER TO HOSPITAL FOR PROCEDURE IS NOT URGENT AND COULD WAIT FOR SCHEDULED APPOINTMENT, MAY DISCHARGE FROM HIS STANDPOINT. NOTIFIED SCREW MACHINE ADJUSTER AUTOMATIC MARIAH. CALLED DR. BUCKLEY, INFORMED OF ABOVE, DR. BUCKLEY REPORTS PT MAY DISCHARGE FROM HIS STANDPOINT. CM NOTIFED CM SCREW MACHINE ADJUSTER AUTOMATIC MARIAH WHO ADVISED THAT SHE SPOKE TO RENAL BIOCHEMIST JESUS WHO WILL SPEAK TO DR. GOMEZ AND IF OK WITH THE DOCTOR, WILL CALL BEDSIDE NURSE WITH DISCHARGE ORDERS. CM NOTIFIED BEDSIDE NURSE AND WOOD ROOM HAND NURSE. Elie Broderick, CASE MANAGEMENT Patient Name: MARC CHADWICK Page 24275 at 1712 All edits/amendments must be made on the electronic document DICTATION DATE: 01/27/191710 WIND UP OPERATOR: JANN 01/27/191710 RPT#: [id number] DC DATE: STATUS: ADM IN [facility] [address] [place] [address] END OF REPORT
--- NOTE | 2019-01-28 07:07 | MORECARE ---
CASE MANAGEMENT DISCHARGE SUMMARY PATIENT: MARC CHADWICK UNIT: [id number] ADM DATE: 01/27/19 AGE: 74 : [birth year] SEX: M ROOM/BED: D.2101 AUTHOR: RADHA MCGRATH PHYSICIAN: REFERRING PHYSICIAN: EMA GOMEZ MD DATE OF SERVICE: 01/28/19 Discharge Plan Patient Name: MARC CHADWICK Facility: [facility]:[place] : 1945 Planned Disposition: Home Anticipated Discharge Date: 01/27/19 Discharge Date: 01/27/2019 Expected LOS: 1 Initial Reviewer: [email or web address] Initial Review Date: 01/27/2019 Generated: 01/28/19 8:07 am Comments DCP- Discharge Planning Updated by [email or web address]: Elie Broderick on 01/27/19 4:[address] Patient Name: MARC CHADWICK Encounter No: [id number] : 1945 Primary Insurance: MEDICARE A & B Anticipated DC Date: 01-27-2019 Planned Disposition: Home DCP follow-up note: CM SPOKE TO ASSOCIATE SALES MANAGER NURSE SUNNI WHO INFORMED THAT DR. VICTORIA CAME AND STATED THAT PT HAS PROCEDURE SCHEDULED FOR , PT'S TRANSFER TO HOSPITAL FOR PROCEDURE IS NOT URGENT AND COULD WAIT FOR SCHEDULED APPOINTMENT, MAY DISCHARGE FROM HIS STANDPOINT. CM NOTIFIED FIBER ARTIST MARIAH. CM CALLED DR. BUCKLEY, INFORMED OF ABOVE, DR. BUCKLEY REPORTS PT MAY DISCHARGE FROM HIS STANDPOINT. CM NOTIFED CM FIBER ARTIST MARIAH WHO ADVISED THAT SHE SPOKE TO RENAL TILE GRADER JESUS WHO WILL SPEAK TO DR. GOMEZ AND IF OK WITH THE DOCTOR, WILL CALL BEDSIDE NURSE WITH DISCHARGE ORDERS. CM NOTIFIED BEDSIDE NURSE AND ASSOCIATE SALES MANAGER NURSE. Elie Broderick, CASE MANAGEMENT Last DP export: 01/27/19 4:12 p Patient Name: MARC CHADWICK Page [phone] at 0707 All edits/amendments must be made on the electronic document DICTATION DATE: 01/28/19 0707 WATER ATTENDANT: JANN 01/28/19 0707 RPT#: [id number] DC DATE:01/27/19 STATUS: DIS IN [facility] [address] [place] [address] END OF REPORT
--- NOTE | 2019-03-07 12:36 | DS ---
PATIENT:MARC CHADWICK :49 MEDICAL RECORD: [id number] DISCHARGE SUMMARY ADMISSION DATE: 01/27/19 DISCHARGE DATE: 01/27/19 This is a discharge dated 01/27/2019 from inpatient rehabilitation. PRIMARY DIAGNOSIS: Decreased functional ability and ability to provide activities of daily living secondary to severe peripheral vascular disease. SECONDARY DIAGNOSES: 1. Left foot wound. 2. Critical limb ischemia. 3. Anxiety. 4. Carotid artery disease. 5. Coronary artery disease. 6. Hyperlipidemia. 7. History of cerebrovascular accident. 8. Diabetes. 9. Hypertension. 10. History of permanent pacemaker placement with defibrillator. 11. End-stage renal disease, on chronic hemodialysis. 12. Hypokalemia. 13. Anemia of chronic disease. CONSULTANTS FOLLOWING THIS HOSPITALIZATION: Interventional radiology with Dr. Capm; Nephrology with Dr. Nish Lyn; Podiatry with Dr. oJhnson. PROCEDURES THIS HOSPITALIZATION: 1. Excisional debridement of the left foot per Dr. Johnson. 2. Chronic hemodialysis 3 times weekly. HOSPITAL COURSE: Full H&P is located elsewhere on the chart on this 74-year-old male who was admitted to inpatient rehab for physical therapy and occupational therapy to improve gait, transfer skills, bed mobility, and activities of daily living to a modified independent level. He was evaluated by PT and OT and their plans of care were followed. He required group home care for observation and assessment and medication administration as well as wound care and monitoring of surgical incisions. Electrolytes were monitored by protocol. Fingerstick blood sugars were monitored throughout his hospital stay with appropriate adjustment in medications as needed. He was followed by Dr. Lyn from nephrology for management of hemodialysis, which he continued 3 times weekly. He was also seen by Dr. Johnson with podiatry and underwent excisional debridement of the left foot and was seen by Dr. Camp from interventional radiology. He had daily dressing changes of the left foot. He was cooperative with therapies, progressing towards goals. Case management was involved for discharge planning. He was seen by Dr. Camp and it was determined that he needed additional interventional procedures for critical limb ischemia and was transferred to the acute hospital on 01/27/2019. He had made good progress with PT and OT as well, meeting 2/3 long-term PT goals and 5/7 long-term OT goals. DISCHARGE MEDICATIONS: As per discharge medication reconciliation. DISCHARGE DISPOSITION: The patient is discharged to the acute hospital. He will continue current diet and level of activity and will follow with primary care and specialists in the acute setting. DISCHARGE SUMMARY REPORT [id number] MARC CHADWICK [place] At least 30 minutes was spent in this discharge activity. TRANSINT:[id number] Voice Confirmation ID: [id number] DOCUMENT ID: [id number] Dictated By: TRENTON MEDINA I have interviewed/examined the above patient and agree with these documented findings. MAYELA MARI MD at 1236 CC: [id number] DICTATION DATE: 03/06/19 1855 VETERINARY PHYSIOLOGIST: 03/07/19 0741 DIS IN 01/27/19 [id number] [place] [address]
== END 2019-01-27 18:09 | disposition home or self-care (01) | DRG 299 ==
LOC: D.M2 12:12
PROVIDERS: ADMIT Internal Medicine Nephrology; ATTEND Internal Medicine Nephrology
DX: E11.51 Type 2 diabetes mellitus with diabetic peripheral angiopathy without gangrene (principal); N18.6 End stage renal disease; I12.0 Hypertensive chronic kidney disease with stage 5 chronic kidney disease or end stage renal disease; I70.209 Unspecified atherosclerosis of native arteries of extremities, unspecified extremity; D63.1 Anemia in chronic kidney disease; E11.22 Type 2 diabetes mellitus with diabetic chronic kidney disease; Z99.2 Dependence on renal dialysis; E78.5 Hyperlipidemia, unspecified; I25.10 Atherosclerotic heart disease of native coronary artery without angina pectoris; E11.621 Type 2 diabetes mellitus with foot ulcer; L97.522 Non-pressure chronic ulcer of other part of left foot with fat layer exposed

== ENCOUNTER 2019-01-31 13:45 | Emergency (ER) | payer MEDICARE ==
[~2019-01-31] VITALS: Ht 165.1 cm; Wt 76.4 kg
[2019-01-31 13:53] VITALS: Ht 165.1 cm; Wt 76.4 kg
[2019-01-31 15:35] VITALS: BP 144/66
== END 2019-01-31 15:28 | disposition home or self-care (01) ==
LOC: D.ER 13:45
DX: I73.9 Peripheral vascular disease, unspecified (principal); I12.9 Hypertensive chronic kidney disease with stage 1 through stage 4 chronic kidney disease, or unspecified chronic kidney disease; N18.6 End stage renal disease; Z99.2 Dependence on renal dialysis

== ENCOUNTER 2019-02-02 11:52 | Inpatient (IN) | payer MEDICARE ==
[~2019-02-02] VITALS: Ht 165.1 cm; Wt 73.4 kg
--- NOTE | ~2019-02-02 | HEMODYNAMI ---
PATIENT:MARC CHADWICK MEDICAL RECORD: [id number] : 49 LOCATION:[address] [facility] [id number] ADMISSION DATE: 02/02/19 Generatedon:02/03/201915:31 Patient name: MARC CHADWICK Patient #: [id number] SSN: [id number] : 1945 Date of study: 02/03/2019 Page: Of Hemodynamic Procedure Report Patient Data Patient Demographics Procedure consent was obtained First Name: MARC Gender: Male Last Name: NETTA : 1945 Middle Initial: S Age: 74 year(s) Patient #: [id number] Race: SSN: [id number] Additional ID: [id number] Contact details Address: [address] [place] [address] State: [place] City: [place] Zip code: [address] Past Medical History Allergies Allergen Reaction Date Comments Reported Other allergy 10/01/2014 METHADONE Other allergy 04/28/2016 Methadone Other allergy 09/22/2016 Methadone Other allergy 02/23/2018 methadone Other allergy 01/14/2019 methadone Other allergy 02/03/2019 methadone Admission Admission Data Admission Date: 02/02/2019 Admission Time: 14:40 Room #: 2128 Height (in.): 65 BSA: 1.79 (m2) Height (cm.): 165.1 BMI: 26.46 (kg/m2) Weight (lbs.): 159 Weight (kg.): 72.12 Procedure Procedure Types Cath Procedure Peripheral Cath Diagnostic Procedure Home Health Clinician Peripheral Procedures Abd/Extremity Extremities Left Lower Ext Arterio Procedure Description Procedure Date Procedure Date: 02/03/2019 Procedure Start Time: 14:07 Procedure Staff Name Function Shaun Camp MD Performing Physician Olesya Swanson RT Appraisal Manager Madelyn Hart RN Nurse Bianca Manley RN Nurse Dyllan Izaguirre RT Scrub Eron Miller Jr, CRNA Additional personnel Procedure Data Cath Procedure Fluoroscopy Diagnostic fluoroscopy Total fluoroscopy Time: 9.8 time: 9.8 min min Diagnostic fluoroscopy Total fluoroscopy dose: 39 dose: 39 mGy mGy Contrast Material Contrast Material Type Amount (ml) Isovue 300 75 Entry Location Entry Primary Successful Side Size Upsize Upsize Entry Closure Succes sful Closure Location (Fr) 1 (Fr) 2 (Fr) Remarks Device Remarks Femoral Left artery Procedure Medications Medication Administration Route Dosage Heparin Bolus I.V. 5000 units Heparin Flush Bag added to field 3 bags (1000units/500ml NS) Lidocaine 1% added to field 20 Hemodynamics Rest BSA: 1.79 (m2) O2 Consumption: Estimated: 208.27 (ml/min) O2 Consumption indexed : Estimated:116.35 (ml/min/m) Heart Rate: 72 (bpm) Snapshots Pre Cath Intra NCS Post Cath Vital Signs Time Heart Resp SPO2 etCO2 NIBP (mmHg) Rhythm Pain Sedation Rate (ipm) (%) (mmHg) Status Level (bpm) 13:44:58 67 11 100 36.8 No Cuff NSR 0 (11) 10(A) , No pain 13:47:07 71 18 100 36.8 162/76(118) NSR 0 (11) 10(A) , No pain 13:51:31 66 10 100 36.1 154/68(119) NSR 0 (11) 10(A) , No pain 13:55:49 77 12 100 32.3 170/79(132) NSR 0 (11) 10(A) , No pain 14:00:05 64 13 100 45.2 132/73(119) NSR 0 (11) 10(A) , No pain 14:04:23 60 9 100 9 115/54(84) NSR 0 (11) 10(A) , No pain 14:08:35 63 13 100 14.3 92/57(76) NSR 0 (11) 10(A) , No pain 14:12:41 63 12 100 14.3 94/49(67) NSR 0 (11) 10(A) , No pain 14:16:46 62 12 100 14.3 94/51(80) NSR 0 (11) 10(A) , No pain 14:20:52 60 10 100 14.3 98/51(86) NSR 0 (11) 10(A) , No pain 14:25:00 58 10 100 15 91/49(72) NSR 0 (11) 10(A) , No pain 14:29:04 62 14 100 12.7 81/52(69) NSR 0 (11) 10(A) , No pain 14:34:01 60 11 100 5.2 90/53(70) NSR 0 (11) 10(A) , No pain 14:38:03 69 12 100 15.8 89/55(80) NSR 0 (11) 10(A) , No pain 14:42:08 62 9 100 13.5 93/44(73) NSR 0 (11) 10(A) , No pain 14:46:16 61 8 100 4.5 78/42(56) NSR 0 (11) 10(A) , No pain 14:51:15 60 10 100 11.2 Measuring NSR 0 (11) 10(A) , No pain 14:51:19 60 9 100 12 95/45(75) NSR 0 (11) 10(A) , No pain 14:55:27 60 20 100 12 90/46(70) NSR 0 (11) 10(A) , No pain 14:59:31 60 14 100 12.7 98/50(81) NSR 0 (11) 10(A) , No pain 15:03:39 60 21 100 12.7 84/51(69) NSR 0 (11) 10(A) , No pain 15:07:43 62 11 100 15 89/46(72) NSR 0 (11) 10(A) , No pain 15:11:44 61 11 100 4.5 100/54(73) NSR 0 (11) 10(A) , No pain 15:15:50 58 15 100 12 97/53(81) NSR 0 (11) 10(A) , No pain 15:19:58 61 11 100 12 92/49(73) NSR 0 (11) 10(A) , No pain 15:24:02 60 16 100 15 84/51(66) NSR 0 (11) 10(A) , No pain 15:28:03 60 11 100 13.5 91/47(69) NSR 0 (11) 10(A) , No pain Medications Time Medication Route Dose Verified Delivered Reason Notes Effec tiveness by by 13:44:16 Heparin Flush added 3 Shaun Dunn used for Bag to bags Conrado Camp MD procedure (1000units/500ml field NS) 13:44:40 Lidocaine 1% added 20ml Shaun Dunn used for to vial Conrado Camp MD procedure field 14:38:55 Heparin Bolus I.V. 5000 Shaun Joshi used for units Tanner Camp RN procedure MD Procedure Log Time Note 12:59:55 Patient Height : 65 inches 13:00:00 Patient Weight : 159 lbs 13:00:58 Use device set IR Diagnostic 13:01:31 DOC .035 wire (Y25432) opened to sterile field. 13:01:34 Micropuncture VSI 4FR kit opened to sterile field. 13:01:35 TUBING Contrast Injection High Pressure (IWM175O) opened to sterile field. 13:01:36 Tegaderm 4 x 4 (1626W) opened to sterile field. 13:01:37 Sterile Angiographic Pack opened to sterile field. 13:01:38 Bag Decanter (2002S) opened to sterile field. 13:01:39 ACIST Manifold (91351) opened to sterile field. 13:01:40 ACIST Hand Control (98293) opened to sterile field. 13:01:40 ACIST Syringe (36499) opened to sterile field. 13:15:49 Time tracking: Regular hours (M-F 7:00 - 5:00) 13:16:03 Plan of Care:Hemodynamics will remain stable., Cardiac rhythm will remain stable., Comfort level will be maintained., Respiratory function will remain adequate., Patient/ family verbilizes understanding of procedure., Procedure tolerated without complication., Recovers from procedure without complications.. 13:16:17 Patient received from Med II to IR Alert and oriented. Tansferred to table in Supine position. 13:16:21 Signed procedure consent form obtained from patient. 13:16:26 Correct patient and procedure confirmed by team. 13:16:50 H&P Date Dictated: 02/03/2019 New H&P dictated by physician.. 13:16:54 Pre-procedure instructions explained to patient. 13:16:55 Pre-op teaching completed and patient verbalized understanding. 13:16:58 Family unavailable. 13:17:01 Patient NPO since Midnight. 13:19:02 Patient allergic to Other allergymethadone 13:19:34 Is the patient allergic to Iodine/contrast media? No. 13:19:41 Is patient on blood thinner?Yes 13:20:15 Patient diabetic? Yes. 13:20:31 If diabetic: On Metformin? No 13:20:40 - 13:20:42 ----Pre-sedation anethsthesia assessment.----see anesthesia notes for monitoring of patient during procedure 13:22:03 - 13:22:15 Pre procedure: right dorsailis pedis pulse Doppler 13:22:19 Pre procedure: right posterior tibial pulse Doppler 13:22:25 Pre procedure: left dorsailis pedis pulse Doppler 13:22:46 Pre procedure: left posterior tibial pulse 0-Absent 13:23:09 IV patent on arrival in left forearm with D5/.45%NaCl at [facility]. 13:23:17 Right groin area was prepped with chlora-prep and draped in sterile fashion 13:23:27 Popliteal region area was prepped with chlora-prep and draped in steril e fashion 13:23:32 - 13:23:51 Fire Safety Assessment: A--An alcohol-based skin anteseptic being used preoperatively., C--Open oxygen or nitrous oxide is being used. 13:23:59 - 13:43:50 ECG and BP/O2 sat monitors applied to patient. 13:44:07 Vital chart was started 13:44:16 Heparin Flush Bag (1000units/500ml NS) 3 bags added to field was administered by Shaun Camp MD; used for procedure; 13:44:22 Baseline sample Acquired. 13:44:40 Lidocaine 1% 20ml vial added to field was administered by Shaun Camp MD; used for procedure; 13:44:59 Baseline sample Acquired. 13:45:14 - 14:06:33 - 14:06:36 Physician arrived 14:06:37 --------ALL STOP TIME OUT------ 14:06:38 Final Timeout: patient, procedure, and site verified with staff and physician. All members of the team are in agreement. 14:07:08 Procedure started. 14:07:08 Full Disclosure recording started 14:07:26 Arterial access obtained using ultrasound guidance. 14:25:37 Cordis 5Fr [place] Destination sheath opened to sterile field. 14:29:42 AMPLATZ Super Stiff 75cm wire ([id number]) opened to sterile field. 14:38:55 Heparin Bolus 5000 units I.V. was administered by Madelyn Hart RN; used for procedure; 14:40:16 TORQUE DEVICE PLASTIC .038 ( TD01) opened to sterile field. 14:40:17 GLIDE WIRE ANGLE 180cm (KO1643) opened to sterile field. 14:40:18 CXI Catheter 90cm (G22888) opened to sterile field. 14:40:19 ROADRUNNER .035 260 glide wire (B62269) opened to sterile field. 14:53:09 Navicross Support Straight .035 150cm catheter (SK77611) opened to sterile field. 15:01:17 St Shade 5FR Sheath opened to sterile field. 15:04:43 EXOSEAL 5Fr (EX500) opened to sterile field. 15:05:10 A sheath was inserted into the Left Femoral artery 15:27:44 Procedure ended.(Physican Out) 15:28:17 Fluoroscopy time 09.80 minutes. 15:28:22 Fluoroscopy dose: 39 mGy 15:28:22 Flurop Dose total: 39 15:28:43 Contrast amount:Isovue 300 75ml. 15:28:47 Procedure and supply charges have been captured, reviewed, submitted an d are correct. 15:30:30 Report given to [employer] (Closed). 15:30:42 Post Procedure Pulses reassessed and unchanged 15:31:10 Vital chart was stopped Device Usage Item Name Manufacture Quantity Catalog Hospital Part Current Minima l Lot# / Number Charge Number Stock Stock Serial# Code DOC .035 wire Cook Medical 1 [id number] 233509 5 ([id number]) Micropuncture VSI VASCULAR 1 7266V 243356 107224 5 VSI 4FR kit SOLUTIONS TUBING Merit 1 [id number] 137137 518719 144366 5 Contrast Medical Injection High Pressure ([id number]) Tegaderm 4 x 3M 1 1626W 043802 427296 583626 5 4 (1626W) Sterile Cardinal 1 [id number] 737709 022338 5 Angiographic Health Pack Bag Decanter Microtek 1 2001S 443669 06904 890425 5 () Medical Inc. ACIST Acist 1 02392 806750 112418 120777 5 Manifold Medical (19850) Systems Inc ACIST Hand Acist 1 73415 381419 609153 233009 5 Control Medical (65322) Systems Inc ACIST Syringe Acist 1 12621 255442 497664 339136 20 (94608) Medical Systems Inc Cordis 5Fr Cardinal 1 18-98823 640360 52038 068595 5 [place] Health Destination sheath AMPLATZ Super [place] 1 [id number] 090418 920961 799025 5 Stiff 75cm Scientific wire ([id number]) TORQUE DEVICE [place] 1 TD01 824786 793401 842626 5 PLASTIC .038 Scientific ( TD01) GLIDE WIRE Terumo 1 VR5711 829751 349141 900014 5 ANGLE 180cm (KY4407) CXI Catheter [facility] 1 B49895 209441 512864 919160 5 3207790 90cm (M06962) ROADRUNNER [facility] 1 S62721 714606 610283 595163 5 9816386 .035 260 glide wire (X07559) Navicross Terumo 1 ZV91079 159848 082633 440670 5 Support Straight .035 150cm catheter (IN80755) St Shade 5FR St Shade 1 430800 659825 818200 5 Sheath EXOSEAL 5Fr Cardinal 1 EX500 630277 039742 950738 10 (EX500) Health Signature Audit [place] Stage Time Signature Unsigned Intra-Procedure 02/03/2019 Olesya Swanson 3:31:07 PM RT(R) [facility] [address] [place] [address]
[2019-02-02 13:08] LABS: BASOPHILS 0.3 % (0-2); EOSINOPHILS 2.2 % (0-7); HEMATOCRIT 29.4 % (42.0-54.0); HEMOGLOBIN 9.6 g/dL (13.5-17.5); IMMATURE GRANULOCYTES 0.1 % (0-5); MCH 31.8 pg (26.0-34.0); MCHC 32.7 g/dL (31.0-37.0); MCV 97.4 fL (80.0-100.0); MEAN PLATELET VOLUME 8.9 fL (7.4-10.4); MONOCYTES 8.1 % (2-11); NEUTROPHILS 79.3 % (40-80); PLATELET COUNT 141 10x3/uL (130-400); RBC 3.02 10x6/uL (4.20-6.10); RDW 15.4 % (11.5-14.5); WBC 7.3 10x3/uL (4.8-10.8)
[2019-02-02 13:17] LABS: ALBUMIN 3.8 g/dL (3.4-5.0); BILIRUBIN - TOTAL 0.43 mg/dL (0.2-1.3); CREATININE - SERUM 10.7 mg/dL (0.6-1.3); PROTEIN - SERUM 7.4 g/dL (6.4-8.2)
[2019-02-02 15:52] VITALS: BP 168/77
--- NOTE | 2019-02-02 16:10 | NUR ---
TRANSFER FROM ER BY W/C. LEEINTED TO ROOM. CALL LIGHT IN REACH. WILL CONT. PLAN OF CARE.
[2019-02-02 16:42] VITALS: BP 149/60; BMI 26.6
--- NOTE | 2019-02-02 17:59 | NUR ---
CONSENTS SIGNED FOR PROCEDURE.
[2019-02-02 18:30] LABS: APTT 32.9 SECONDS (22.8-39.4); INR 1.12 (0.85-1.17); PROTIME 13.9 SECONDS (11.6-15.0)
--- NOTE | 2019-02-02 19:46 | NUR ---
PATIENT RESTING IN BED IV IN PLACE TO LEFT WRIST , FISTULA TO RIGHT ARM WITH BRUT AND THRILL NOTED. HE IS HARD OF HEARING, BEDALARM IN PLACE AND WORKING. UP TO BATHROOM WITH STAND BY ASSIST. LEFT FOOT RED AND SWELLING NOTED. C/O PAIN WITH PRN PERCOCET GIVEN.
[2019-02-02 20:00] VITALS: BP 157/74
[2019-02-03] VITALS (7 sets, daily range): BP systolic 106–166; BP diastolic 44–82; Ht 165.1 cm; Wt 73.4 kg
[2019-02-03 04:55] LABS: BASOPHILS 0.3 % (0-2); EOSINOPHILS 4.4 % (0-7); HEMATOCRIT 27.4 % (42.0-54.0); LYMPHOCYTES 17.6 % (15-50); MCH 31.7 pg (26.0-34.0); MCHC 32.8 g/dL (31.0-37.0); MCV 96.5 fL (80.0-100.0); MEAN PLATELET VOLUME 9.3 fL (7.4-10.4); NEUTROPHILS 70.7 % (40-80); PLATELET COUNT 141 10x3/uL (130-400); RBC 2.84 10x6/uL (4.20-6.10); RDW 15.5 % (11.5-14.5); WBC 6.5 10x3/uL (4.8-10.8)
[2019-02-03 05:10] LABS: APTT 36.8 SECONDS (22.8-39.4); INR 1.13 (0.85-1.17)
[2019-02-03 05:13] LABS: ANION GAP 17.7 mmol/L (8-16); CALCIUM 8.5 mg/dL (8.5-10.1); CARBON DIOXIDE 26.8 mmol/L (21.0-32.0); CREATININE - SERUM 11.1 mg/dL (0.6-1.3); PHOSPHOROUS 6.8 mg/dL (2.5-4.9); POTASSIUM - SERUM 4.5 mmol/L (3.5-5.1)
--- NOTE | 2019-02-03 07:14 | NUR ---
REPORT RECEIVED. WILL CONTINUE WITH POC. PT CURRENTLY LYING SUPINE. CALL LIGHT W/I REACH. PT IS AAO AND UP WITH ASSIST. RR EVEN AND UNLABORED ON RA. L.WRIST PIV IS SALINE LOCKED. PT IS NPO FOR ARTERIOGRAM. PT DENIES ANY NEEDS. NO S/S OF DISTRESS NOTED. WILL CTM.
--- NOTE | 2019-02-03 12:33 | NUR ---
I have reviewed this patient and I concur with the Shift Assessment completed by the Licensed Practical Nurse today this shift.
--- NOTE | 2019-02-03 13:09 | NUR ---
PT TRANSFERED TO IR VIA BED WITH SAIRA. WILL CTM.
--- NOTE | 2019-02-03 16:55 | NUR ---
RECEIVED PT FROM RECOVERY. PT IS AAO BUT CONFUSED TO SITUATION AND KEEPS ASKING REPEADETLY THE SAME QUESTIONS. RR EVEN AND UNLABORED ON 2L . NS INFUSING @100ML/HR VIA L.WRIST PIV. PT WILL LAY FLAT UNTIL 2129. LEFT FEM SITE IS C/D/I WITH NO S/S OF HEMATOMA PRESENT. VSS AND WNL. WILL CTM.
--- NOTE | 2019-02-03 17:59 | NUR ---
PT IS NOW DEMANDING PERCOCET PAIN MEDICATION AND REFUSES TO TAKE THE ORDERED TRAMADOL. WILL NOTIFY MD TO TRY AND RESTART PERCOCET. WILL CTM. VSS AND WNL.
--- NOTE | 2019-02-03 18:08 | NUR ---
SPOKE WITH BECCA RAHMAN APRN WHO GAVE PERMISSION TO RENEW PERCOCET MEDICATION ORDER. WILL PLACE ORDER AND ADMINISTER. WILL CTM.
--- NOTE | 2019-02-03 19:59 | NUR ---
PT LAYING FLAT IN BED UNTIL 2129 POST ARTERIALGRAM. PT ALERT AND ORIENTED RR EVEN AND UNLABORED. NO S/S OF DISTRESS AT THIS TIME. PT LEFT LEG RED HOT AND SWOLLEN. LEFT LEG ELEVATED AT THIS TIME. VITALS STABLE AT THIS TIME. BED LOW CALL LIGHT WITHIN REACH. WILL CONTINUE TO MONITOR.
[2019-02-04] VITALS: BP 133/72
--- NOTE | 2019-02-04 03:11 | NUR ---
FSBS 166. PT ALERT AND ORIENTED. NO S/S OF DISTRESS AT THIS TIME. BED LOW CALL LIGHT WITHIN REACH. WILL CONTINUE TO MONITOR.
[2019-02-04 04:30] VITALS: BP 121/47
--- NOTE | 2019-02-04 05:32 | NUR ---
I have reviewed this patient and I concur with the Shift Assessment completed by the Licensed Practical Nurse today this shift.
[2019-02-04 06:20] LABS: BASOPHILS 0.2 % (0-2); EOSINOPHILS 4.2 % (0-7); HEMATOCRIT 25.8 % (42.0-54.0); HEMOGLOBIN 8.5 g/dL (13.5-17.5); IMMATURE GRANULOCYTES 0.2 % (0-5); MCH 32.1 pg (26.0-34.0); MCHC 32.9 g/dL (31.0-37.0); MCV 97.4 fL (80.0-100.0); MEAN PLATELET VOLUME 9.4 fL (7.4-10.4); MONOCYTES 6.8 % (2-11); NEUTROPHILS 78.6 % (40-80); PLATELET COUNT 117 10x3/uL (130-400); RBC 2.65 10x6/uL (4.20-6.10); RDW 15.7 % (11.5-14.5); WBC 6.5 10x3/uL (4.8-10.8)
[2019-02-04 06:46] LABS: ANION GAP 16.7 mmol/L (8-16); CALCIUM 8.8 mg/dL (8.5-10.1); CARBON DIOXIDE 26.9 mmol/L (21.0-32.0); CREATININE - SERUM 12.4 mg/dL (0.6-1.3); PHOSPHOROUS 7.7 mg/dL (2.5-4.9); POTASSIUM - SERUM 4.6 mmol/L (3.5-5.1)
[2019-02-04 08:30] VITALS: BP 138/63
--- NOTE | 2019-02-04 09:51 | NUR ---
AM MEDICATIONS ADMINISTERED. DISCUSSED CARE OF PT WITH AND PAIN MEDICATION WITH . STATED THAT HE DC'D PAIN MEDICATION BECAUSE HE "WAS A SUBSTANCE ABUSER AND DIDNT NEED IT." PT VERY IRRITATED ABOUT SITUATION. ADMINISTERED ORDERED DOSE OF ULTRAM. WILL CTM. NO S/S OF DISTRESS NOTED.
--- NOTE | 2019-02-04 15:11 | NUR ---
I have reviewed this patient and I concur with the Shift Assessment completed by the Licensed Practical Nurse today this shift.
--- NOTE | 2019-02-04 16:15 | MORECARE ---
CASE MANAGEMENT DISCHARGE SUMMARY PATIENT: MARC CHADWICK UNIT: [id number] ADM DATE: 02/02/19 AGE: 74 : [birth year] SEX: M ROOM/BED: D.0446 AUTHOR: RADHA MCGRATH PHYSICIAN: REFERRING PHYSICIAN: SJ DAN MD DATE OF SERVICE: 02/04/19 Discharge Plan Patient Name: MARC CHADWICK [facility] [facility] 1945 Planned Disposition: Anticipated Discharge Date: Discharge Date: Expected LOS: Initial Reviewer: [email or web address] Initial Review Date: 02/04/2019 Generated: 02/04/19 5:14 pm Comments DCP- Discharge Planning Updated by [email or web address]: Elie Broderick on 02/04/19 3:[address] Patient Name: MARC CHADWICK Admission Status: ER Accout number: [id number] Admission Date: 02-02-2019 : 1945 Admission Diagnosis: Attending: Sj Dan Current LOS: 2 Anticipated DC Date: Planned Disposition: Primary Insurance: MEDICARE A & B Discharge Planning Comments: CM ATTEMPTED TO MEET WITH PT FOR INITIAL ASSESSMENT OF DISCHARGE NEEDS. PT WAS NOT IN ROOM AT APPROXIMATELY 1605 HOURS. CM TO ATTEMPT ASSESSMENT OF PT AT A LATER TIME. Pest Control Service Technician: Elei Broderick Patient Name: MARC CHADWICK Page [phone] at 1615 All edits/amendments must be made on the electronic document DICTATION DATE: 02/04/191613 FEED GRINDER: JANN 02/04/19 1614 RPT#: [id number] DC DATE: STATUS: ADM IN [facility] [address] [place] [address] END OF REPORT
[2019-02-04 20:21] VITALS: BP 133/55
[2019-02-04 23:37] VITALS: BP 145/68
--- NOTE | 2019-02-04 23:50 | NUR ---
INITAIL ROUNDS COMPLETED AT 1909 HR. PT RESTING WITH EYES CLOSED. RESP EVEN AND REGULAR. ASSESSMENT COMPLETED AT 2024 HRS. VSS. ALERT AND ORIENTED TO PERSON, PLACE AND TIME. IVTO LFASL. R ARMFISTULA WITH GOOD BRUIT AND THRILL. LUNGS CTA. L FOOT RED, WARM AMD SWOLLEN. THREADY PEDAL PULSES. VSS. PM FSBS 178. REFUSED S/SINSULIN. PM MEDS GIVEN INCLUDING TRAMADOL 50 MG. AT 2334 PT DRESSEDIN ROOM STATING HE WAS LEAVING AMA. INFORMED PT THE ORTHOPEDIC SURGEON WILL SEEE HIM. PT STATES NOBODY IS GOING TO CUT OFF HIS FOOT AND HE IS LEAVING. STATES UPSET THAT ALL OF HIS PAIN MEDS WERE DC'S EXCEPT TRAMADOL. ATTEMPTED TO CONVINCE PT TO STAY AND HE BECAME BELLIGERENT. James BROWN APN NOTIFIED OF PT LEAVING AMA. PT REFUSED TO SIGN AMA PAPERS. IV TO LFA DC'D WITH CATHETER INTACT. PT STATES WILL CALL CAB. DOWN BERNARD IN W/C WITH SECURITY AT HIS SIDE.
--- NOTE | 2019-02-07 09:11 | MORECARE ---
CASE MANAGEMENT DISCHARGE SUMMARY PATIENT: MARC CHADWICK UNIT: [id number] ADM DATE: 02/02/19 AGE: 74 : 47 SEX: M ROOM/BED: D.8399 AUTHOR: RADHA MCGRATH PHYSICIAN: REFERRING PHYSICIAN: SJ DAN MD DATE OF SERVICE: 02/07/19 Discharge Plan Patient Name: MARC CHADWICK [facility]:[place] : 1945 Planned Disposition: Left Against Medical Advice Anticipated Discharge Date: 02/04/19 Discharge Date: 02/04/2019 Expected LOS: 2 Initial Reviewer: [email or web address] Initial Review Date: 02/04/2019 Generated: 02/07/19 10:11 am Comments DCP- Discharge Planning Updated by [email or web address]: Elie Broderick on 02/04/19 3:[address] Patient Name: MARC CHADWICK Admission Status: ER Accout number: [id number] Admission Date: 02-02-2019 : 1945 Admission Diagnosis: Attending: Sj Dan Current LOS: 2 Anticipated DC Date: Planned Disposition: Primary Insurance: MEDICARE A & B Discharge Planning Comments: CM ATTEMPTED TO MEET WITH PT FOR INITIAL ASSESSMENT OF DISCHARGE NEEDS. PT WAS NOT IN ROOM AT APPROXIMATELY 1605 HOURS. CM TO ATTEMPT ASSESSMENT OF PT AT A LATER TIME. Dispatch Supervisor: Elie Broderick Last DP export: 02/04/19 3:15 pm Patient Name: MARC CHADWICK Page [phone] at 0911 All edits/amendments must be made on the electronic document DICTATION DATE: 02/07/19909 UX DEVELOPER DESIGNER: DM 02/07/19909 RPT#: [id number] DC DATE:02/04/19 STATUS: DIS IN [facility] [address] [place] [address] END OF REPORT
== END 2019-02-04 23:57 | disposition left against medical advice (07) | DRG 299 ==
LOC: D.ER 11:52 → D.M2 14:40
PROVIDERS: Family Medicine; General Practice; ADMIT Internal Medicine Nephrology; ATTEND Internal Medicine Nephrology
PROC: B41G1ZZ Fluoroscopy of Left Lower Extremity Arteries using Low Osmolar Contrast (ICD-10-PCS; principal; 2019-02-03)
PROC: 5A1D70Z Performance of Urinary Filtration, Intermittent, Less than 6 Hours Per Day (ICD-10-PCS; 2019-02-03)
DX: E11.51 Type 2 diabetes mellitus with diabetic peripheral angiopathy without gangrene (principal); N18.6 End stage renal disease; I12.0 Hypertensive chronic kidney disease with stage 5 chronic kidney disease or end stage renal disease; I70.222 Atherosclerosis of native arteries of extremities with rest pain, left leg; I70.201 Unspecified atherosclerosis of native arteries of extremities, right leg; E11.22 Type 2 diabetes mellitus with diabetic chronic kidney disease; Z99.2 Dependence on renal dialysis; I25.10 Atherosclerotic heart disease of native coronary artery without angina pectoris; E78.5 Hyperlipidemia, unspecified; D63.1 Anemia in chronic kidney disease; Z86.73 Personal history of transient ischemic attack (TIA), and cerebral infarction without residual deficits

== ENCOUNTER 2019-02-07 07:01 | Inpatient (IN) | payer MEDICARE ==
[~2019-02-07] VITALS: Ht 165.1 cm; Wt 63.2 kg
[2019-02-07 07:48] LABS: BASOPHILS 0.2 % (0-2); EOSINOPHILS 4.8 % (0-7); IMMATURE GRANULOCYTES 0.3 % (0-5); LYMPHOCYTES 10.9 % (15-50); MCH 32.1 pg (26.0-34.0); MCHC 33.3 g/dL (31.0-37.0); MCV 96.4 fL (80.0-100.0); MEAN PLATELET VOLUME 9.3 fL (7.4-10.4); MONOCYTES 10.4 % (2-11); NEUTROPHILS 73.4 % (40-80); RBC 2.49 10x6/uL (4.20-6.10); RDW 15.3 % (11.5-14.5)
[2019-02-07 07:53] LABS: PLATELET COUNT 91 10x3/uL (130-400)
[2019-02-07 08:17] LABS: ALBUMIN 3.2 g/dL (3.4-5.0); BILIRUBIN - TOTAL 0.49 mg/dL (0.2-1.3); CALCIUM 8.7 mg/dL (8.5-10.1); CARBON DIOXIDE 25.4 mmol/L (21.0-32.0); CREATININE - SERUM 12.7 mg/dL (0.6-1.3); MAGNESIUM - SERUM 1.9 mg/dL (1.8-2.4); PHOSPHOROUS 7.2 mg/dL (2.5-4.9); POTASSIUM - SERUM 4.4 mmol/L (3.5-5.1); PROTEIN - SERUM 6.3 g/dL (6.4-8.2)
[2019-02-07 09:49] LABS: PLATELET ESTIMATE DECREASED
[2019-02-07 09:50] LABS: ANISOCYTOSIS OCC
[2019-02-07] MEDS ORDERED: PLAVIX75 MG PO (09:54)
--- NOTE | 2019-02-07 09:57 | NUR ---
RECEIVED PT TO ROOM 2105 VIA WHEELCHAIR, PT WAS ABLE TO GET FROM WHEELCHAIR TO BED X1 ASSIST. PT A/O X4, RESP EVEN AND NONLABORED ON RA. LT FA IV SL. PT REALLY TUOLUMNE, DOES NOT WEAR HEARING AIDS.RT UPPER ARM FISTULA NOTED TO RT ARM. ORIENTED PT TO ROOM AND CALL LIGHT. PT WAS NOT ABLE TO TELL ME WHAT MEDICATIONS HE TAKES, PT HAD LIST OF MEDICATION THAT HE WAS DISCHARGED ON LAST ADMISSION WHICH WAS 01/27/19. PT RATES PAIN LEVEL OF 5/10. DENIES ANY NEEDS, CALL LIGHT IN REACH, NAD NOTED,W ILL CONTINUE TO MONITOR.
--- NOTE | 2019-02-07 10:14 | NUR ---
NOTIFIED PERFORMANCE TEST CONSULTANT OF NEED FOR HEART MONITOR, NON AVAILABLE AT THIS TIME. WILL BE PLACE ON WAITING LIST.
[2019-02-07 10:17] VITALS: BP 146/68; BMI 27.5
--- NOTE | 2019-02-07 13:17 | NUR ---
RESTING COMFORTABLY IN BED, DENIES ANY NEEDS AT THIS TIME. CALL LIGHT IN REACH, NAD NOTED, WILL CONTINUE TO MONITOR.
--- NOTE | 2019-02-07 14:14 | NUR ---
CHECKED WITH DR. STANLEY TO SEE IF IT WAS OK TO GIVE PT 8MG OF MORPHINE. DR. LEMUS STATED THAT IT WOULD BE OK TO GIVE 8MG OF MORPHINE TO PT. GAVE 8MG OF MORPHINE TO PT FOR PAIN LEVEL OF 8/10. PT DENIES ANY OTHER NEEDS AT THIS TIME. CALL LIGHT IN REACH, NAD NOTED,W ILL CONTINUE TO MONITOR.
[2019-02-07 16:10] VITALS: BP 112/49
--- NOTE | 2019-02-07 18:48 | NUR ---
GAVE 8MG OF MORHINE FOR PAIN LEVEL OF 10/10. PT DENIES ANY OTHER NEEDS.
[2019-02-07 20:00] VITALS: BP 168/66
[2019-02-08] VITALS: BP 154/62
[2019-02-08 04:00] VITALS: BP 120/65
[2019-02-08 05:02] LABS: BASOPHILS 0.2 % (0-2); EOSINOPHILS 4.9 % (0-7); HEMATOCRIT 25.1 % (42.0-54.0); HEMOGLOBIN 8.2 g/dL (13.5-17.5); IMMATURE GRANULOCYTES 0.2 % (0-5); LYMPHOCYTES 13.9 % (15-50); MCH 31.9 pg (26.0-34.0); MCHC 32.7 g/dL (31.0-37.0); MCV 97.7 fL (80.0-100.0); MEAN PLATELET VOLUME 9.6 fL (7.4-10.4); MONOCYTES 10.8 % (2-11); RBC 2.57 10x6/uL (4.20-6.10); RDW 15.3 % (11.5-14.5); WBC 4.9 10x3/uL (4.8-10.8)
[2019-02-08 05:11] LABS: PLATELET COUNT 113 10x3/uL (130-400)
[2019-02-08 05:12] LABS: ANION GAP 16.7 mmol/L (8-16); CALCIUM 8.9 mg/dL (8.5-10.1); CARBON DIOXIDE 28.4 mmol/L (21.0-32.0); CREATININE - SERUM 13.8 mg/dL (0.6-1.3); MAGNESIUM - SERUM 2.2 mg/dL (1.8-2.4); PHOSPHOROUS 8.4 mg/dL (2.5-4.9)
[2019-02-08 05:16] LABS: POTASSIUM - SERUM 5.1 mmol/L (3.5-5.1)
--- NOTE | 2019-02-08 07:00 | NUR ---
RECEIVED REPORT. ASSUMED CARE OF PATIENT. CALL LIGHT WITHIN REACH. PAITENT SITTING UP TO SIDE OF BED. PEDAL PULSES TO LEFT FOOT NOT PALPABLE. FOOT IS COOL TO TOUCH AND VERY PAINFUL DURING PALPATION TO PATIENT. AT BEDSIDE FOR AM ROUND. NO DISTRESS.
[2019-02-08 08:32] LABS: % SATURATION 14 % (15-55); IRON 30 ug/dl (35-150); TOTAL IRON BIND CAPACITY 206 ug/dl (260-445); UNSAT IRON BIND CAPACITY 176 ug/dl (150-375)
--- NOTE | 2019-02-08 08:32 | NUR ---
SPOKE WITH CRISTINA AND RECEIVED NEW ORDERS TO RESTART MORPHINE PATIENTS PAIN MEDICATION WAS DISCONTINUED AND HE IS AWAITING AMPUTATION OF HIS LEFT LEG.ORDERS ENTERED.
--- NOTE | 2019-02-08 08:49 | NUR ---
MEDICATED FOR PAIN AND NAUSEA AT THIS TIME. NO DISTRESS.
[2019-02-08 09:00] VITALS: BP 172/82
--- NOTE | 2019-02-08 11:54 | NUR ---
PATIENT REQUESTING PAIN MEDICATION. UNABLE TO ADMINISTER AT THIS TIME, PATIENT IS STILL ONE HOUR AWAY FROM BEING ABLE TO RECEIVE ANOTHER DOSE OF MORPHINE.
--- NOTE | 2019-02-08 12:12 | NUR ---
PATIENT OFF UNIT FOR DIALYSIS.
[2019-02-08 13:02] VITALS: BP 168/70
[2019-02-08 14:02] VITALS: Ht 165.1 cm; Wt 63.2 kg
--- NOTE | 2019-02-08 17:17 | NUR ---
MEDICATED FOR PAIN AND NAUSEA AT THIS TIME. NO DISTRESS.
--- NOTE | 2019-02-08 19:10 | NUR ---
EVENING ROUNDS COMPLETE, PT SITTING UP IN BED. NO SIGNS OF DISTRESS. PT SAYS HE IS IN 8/10 PAIN, MORPHINE NOT CURRENTLY DUE. COOL RAG GIVEN. AAOX4, CL IN REACH, BED IN LOWEST POSITION.
[2019-02-08 20:48] VITALS: BP 154/59
[2019-02-09 00:47] VITALS: BP 139/83
[2019-02-09 05:03] LABS: BASOPHILS 0.4 % (0-2); EOSINOPHILS 5.3 % (0-7); IMMATURE GRANULOCYTES 0.2 % (0-5); LYMPHOCYTES 16.4 % (15-50); MCH 32.4 pg (26.0-34.0); MCHC 33.7 g/dL (31.0-37.0); MCV 96.3 fL (80.0-100.0); MEAN PLATELET VOLUME 9.3 fL (7.4-10.4); MONOCYTES 11.9 % (2-11); NEUTROPHILS 65.8 % (40-80); RDW 14.9 % (11.5-14.5); WBC 5.1 10x3/uL (4.8-10.8)
[2019-02-09 05:13] VITALS: BP 163/75
[2019-02-09 05:27] LABS: ANION GAP 18.7 mmol/L (8-16); CALCIUM 10.2 mg/dL (8.5-10.1); CARBON DIOXIDE 31.6 mmol/L (21.0-32.0); CREATININE - SERUM 9.8 mg/dL (0.6-1.3); PHOSPHOROUS 7.5 mg/dL (2.5-4.9); POTASSIUM - SERUM 4.3 mmol/L (3.5-5.1)
[2019-02-09 05:32] LABS: HEMATOCRIT 31.2 % (42.0-54.0); HEMOGLOBIN 10.5 g/dL (13.5-17.5); PLATELET COUNT 181 10x3/uL (130-400); RBC 3.24 10x6/uL (4.20-6.10)
--- NOTE | 2019-02-09 05:50 | NUR ---
PT YELLING FROM ROOM ABOUT "THE PICTURES ON THE WALL AND OVERALLS BEHIND THE ROOM." TRIED TO REORIENTATE PT UNSUCCESSFULLY. PAGED CRISTINA RAHMAN APN, ORDERED TO D/C PRN MORPHINE AND ORDER 0.5 MG OF ATIVAN, IV, X1 NOW.
--- NOTE | 2019-02-09 07:35 | NUR ---
AM ROUNDS- PT RESTING COMFORTABLY IN BED WITH EYES CLOSED, SITTING UP RIGHT IN BED. BREATHING EVEN AND UNLABORED, NO S/S OF DISTRESS NOTED AT THIS TIME. WILL CTM.
--- NOTE | 2019-02-09 08:30 | NUR ---
ADMINISTERED MORNING MEDICATIONS. NO TROUBLE SWALLOWING. PT IS AROUSES TO VOICE AND STIMULATION, IS ALERT BUT CONFUSED TO TIME AND PLACE. PT IS A RIGHT ARM RESERVE, DIALYSIS TO DAY. 22 GAUGE IV TO LEFT FOREARM, SALINE LOCKED WITH ORANGE CAP IN USE. PT ON ROOM AIR. SCHEDULED FOR BELOW KNEE LEFT LEG AMPUTATION TOMORROW 02/10. PT IS CURRENTLY AGREEABLE TO PROCEDURE. PT HAS PACEMAKER AND RUNS SINUS RYTHM ON TELMETRY. DENIES ANY NEEDS AT THIS TIME. WILL CTM.
[2019-02-09 09:20] VITALS: BP 125/55
--- NOTE | 2019-02-09 10:24 | NUR ---
ADMINISTERED PRN ZOFRAN FOR NAUSEA AND VOMITTING. TOLERATED WELL. DENIES OTHER NEEDS AT THIS TIME. WILL CTM.
--- NOTE | 2019-02-09 12:40 | NUR ---
ADMINISTERED MEDICATION, NO TROUBLE SWALLOWING. PT EXPRESSED GROWING CONCERNS FOR POTENTIAL AMPUTATION SCHEDULDED TOMORROW. WILL CONTACT DOCTOR AND SHARE PT CONCERN. DENIES ANY OTHER NEEDS AT THIS TIME. WILL CTM.
[2019-02-09 13:07] VITALS: BP 139/54
--- NOTE | 2019-02-09 15:30 | NUR ---
PT CONFUSED TO WHAT THE PLAN IS, WAS UNDER THE IMPRESSION HE WAS GOING HOME BECAUSE STAFF ASKED HIM FOR HIS PREFERRED PHARMACY. PT REORIENTED AND INFORMED THAT HE IS IN FACT NOT GOING HOME TONIGHT OR IN THE MORNING. PT IS CONFUSED TO TIME, PLACE AND SITUATION CONSISTENTLY. PT LEFT RESTING COMFORTABLY. WILL CONTINUE TO MONITOR CLOSELY.
--- NOTE | 2019-02-09 15:43 | MORECARE ---
CASE MANAGEMENT DISCHARGE SUMMARY PATIENT: MARC CHADWICK UNIT: [id number] ADM DATE: 02/07/19 AGE: 74 : [birth year] SEX: M ROOM/BED: D.2106 AUTHOR: RADHA MCGRATH PHYSICIAN: REFERRING PHYSICIAN: FÁTIMA LEMUS MD DATE OF SERVICE: 02/09/19 Discharge Plan Patient Name: MARC CHADWICK [facility] [facility] 1945 Planned Disposition: Inpatient Rehab Anticipated Discharge Date: Discharge Date: Expected LOS: Initial Reviewer: [email or web address] Initial Review Date: 02/09/2019 Generated: 02/09/19 4:43 pm DCPIA - Discharge Planning Initial Assessment Updated by [email or web address]: Elie Broderick on 02/09/19 3:41 pm * Is the patient Alert and Oriented? Yes * How many steps to enter\exit or inside your home? RAMP * PCP NO PRIMARY CARE DOCTOR * Pharmacy ID [facility] * Preadmission Environment Home Alone * ADLs Independent * Equipment Cane Glucometer Power Chair or Electric Scooter Walker Wheelchair * Other Equipment [facility] - MEDICAL EQUIPMENT PROVIDER * List name and contact numbers for known caregivers / representatives who currently or will assist patient after discharge: JULIO C PLEITEZ, FRIEND, * Verbal permission to speak to the caregivers and representatives has been obtained from the patient. N/A * Community resources currently utilized Other * Please name any agencies selected above. [facility], MWF, 1330 HOURS, DRIVES SELF ON SCOOTER, HAS TAKEN INTERCITY TRANSIT BUS IN THE PAST. * Additional services required to return to the preadmission environment? Yes * Can the patient safely return to the preadmission environment? Yes * Has this patient been hospitalized within the prior 30 days at any hospital? Yes Patient Name: MARC CHADWICK Page [phone] at 1543 All edits/amendments must be made on the electronic document DICTATION DATE: 02/09/19 154 SCANNER OPERATOR: JANN 02/09/19 154 RPT#: [id number] DC DATE: STATUS: ADM IN [facility] [address] [facility] END OF REPORT
--- NOTE | 2019-02-09 15:53 | MORECARE ---
CASE MANAGEMENT DISCHARGE SUMMARY PATIENT: MARC CHADWICK UNIT: [id number] ADM DATE: 02/07/19 AGE: 74 : [birth year] SEX: M ROOM/BED: D.2106 AUTHOR: ALCIDES,DOC PHYSICIAN: REFERRING PHYSICIAN: FÁTIMA LEMUS MD DATE OF SERVICE: 02/09/19 Discharge Plan Patient Name: MARC CHADWICK [facility] [facility] 1945 Planned Disposition: Inpatient Rehab Anticipated Discharge Date: Discharge Date: Expected LOS: Initial Reviewer: [id number] Initial Review Date: 02/09/2019 Generated: 02/09/19 4:53 pm Comments DCP- Discharge Planning Updated by [id number]: Elie Broderick on 02/09/19 2:[address] Patient Name: MARC CHADWICK Admission Status: ER Accout number: [id number] Admission Date: 02-07-2019 : 1945 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 PT REPORTS HE HAD DECIDED TO HAVE HIS FOOT CUT OFF ADVISED BY THE DOCTOR. PT STATES HE IS GOING TO REHAB AND DOES NOT WANT TO GO TO A [facility]. PT WANTS REHAB "HERE." CM REPORTS LIVING AT HOME INDEPENDENTLY AND ALONE WITH ONE DOG. PT THREW UP. CM OFFERED TO CALL NURSE, PT STATES THE NUSRSE KNOWS. CM EXCUSED SELF AND INFORMED BEDSIDE NURSE. CM RETURN TO PT AND CONTINUED ASSESSMENT. PT STATES HE HAS GLUCOMETER, CANE, WALKER AND WHEELCHAIR. PT STATES HE LEFT HIS ELECTRIC SCOOTER "SOMEWHERE AROUND HERE". PT'S MEDICAL EQUIPMENT PROVIDER IS THE [employer] [facility] OR [employer] ON [facility]. AND NO OUTSIDE SERVICES ASSISTING IN THE HOME. CM DISCUSSED AVAILABILITY OF HOME HEALTH, REHAB SERVICES AND MEDICAL EQUIPMENT. PT WANTS REHAB AT [place]. PT DOES NOT WANT TO CONSIDER CORRECTION FACILITIES AT THIS TIME AND THINKS HE WILL BE ABLE TO GO TROUGH INPATIENT REHAB AND THEN RETURN HOME INDEPENDENLTY. PT STATES HE HAS BEEN THROUGH ROUGH TIMES BEFORE AND WILL GET THROUGH THIS TOO. PT ATTENDS DIALYSIS AT [facility], MWF, 1300 HOURS AND HAS BEEN RIDING HIS ELECTRIC SCOOTER TO AND FROM DIALYSIS TREATMENT. PT WANTS SCREENING FOR INPATIENT REHAB AT [place] AFTER AMPUTATION. CM WAITING SURGERY, THERAPY AND PROGRESSION OF TREATMENT. Guest Services Lead: Elie Broderick DCPIA - Discharge Planning Initial Assessment Updated by [id number]: Elie Broderick on 02/09/19 3:47 pm * Is the patient Alert and Oriented? Yes * How many steps to enter\\exit or inside your home? RAMP * PCP NO PRIMARY CARE DOCTOR * Pharmacy IN [facility] OR [facility]. * Preadmission Environment Home Alone * ADLs Independent * Equipment Cane Glucometer Power Chair or Electric Scooter Walker Wheelchair * Other Equipment [facility] - MEDICAL EQUIPMENT PROVIDER * List name and contact numbers for known caregivers / representatives who currently or will assist patient after discharge: JULIO CMELANY PLEITEZ, FRIEND, * Verbal permission to speak to the caregivers and representatives has been obtained from the patient. N/A * Community resources currently utilized Other * Please name any agencies selected above. OUTPATIENT DIAYSIS, MWF, 1330 HOURS, DRIVES SELF ON SCOOTER, HAS TAKEN [employer] TRANSIT BUS IN THE PAST. * Additional services required to return to the preadmission environment? Yes * Can the patient safely return to the preadmission environment? Yes * Has this patient been hospitalized within the prior 30 days at any hospital? Yes Last DP export: 02/09/19 2:43 p Patient Name: MARC CHADWICK Page [id number] at 1553 All edits/amendments must be made on the electronic document DICTATION DATE: 02/09/191552 EDUCATION ANALYST: JANN 02/09/191552 RPT#: [id number] [place] DATE: STATUS: ADM IN [facility] [address] [place] [address] END OF REPORT
--- NOTE | 2019-02-09 16:55 | NUR ---
PT RESTING COMFORTABLY UPON ENTERING WITH EYES CLOSED. EASILY AROUSES TO VOICE UPON ENTERING. ADMINISTERED MEDICATION AT THIS TIME, NO TROUBLE SWALLOWING. DENIES ANY OTHER NEEDS AT THIS TIME. AWAITING TRANSPORTATION TO DIALYSIS. WILL CTM.
--- NOTE | 2019-02-09 17:10 | NUR ---
I have reviewed this patient and I concur with the Shift Assessment completed by the Licensed Practical Nurse today this shift.
--- NOTE | 2019-02-09 18:08 | NUR ---
PT HAS HAD CONTINOUS NAUSEA AND VOMITTING ALL DAY. PT HAS BEEN RECEIVING PRN ZOFRAN EVERY 4-5 HOURS. EMESIS VARIES IN COLOR AND AMOUNT.
--- NOTE | 2019-02-09 18:11 | NUR ---
JUST SPOKE WITH [facility] PT PRIMARY NURSE REGARDING PT COMING TO DIALYSIS. HAVE CALLED TWICE AND TEAMATE HAS CALLED TO HAVE PT BROUGHT TO DIALYSIS SUITE. HAVE WAITED 2HRS FOR PT ARRIVAL, AND HAVE NOT RECEIVED A PHONE CALL REGARDING DELAY. PT DID HAVE TX YESTERDAY HE WASN'T ABLE TO BE DONE THURSDAY. HAVE CALLED MATHEMATICAL TECHNICIAN TO MAKE HIM AWARE. TX CANCELLED.
--- NOTE | 2019-02-09 18:27 | NUR ---
PT NOT GOING FOR DIALYSIS AFTER ALL. STILL CONTINUOUSLY VOMITTING. PT ASSISTED BACK TO BED. RESTING COMFORTABLY. DENIES ANY NEEDS AT THIS TIME. WILL CTM.
--- NOTE | 2019-02-09 19:05 | NUR ---
EVENING ROUNDS COMPLETE, PT SITTING UP IN BED, NO SIGNS OF DISTRESS. PT IS AAOX1 SELF ONLY. PT DENIES ANY PAIN OR NEEDS AT THIS TIME. CONT WITH POC.
[2019-02-09 20:00] VITALS: BP 123/61
[2019-02-10] VITALS: BP 142/68
--- NOTE | 2019-02-10 07:13 | NUR ---
AM ROUNDS- PT LAYING FLAT UPON ENTERING, AWAKE. REPORTS FEELING LESS NAUSEOUS TODAY. REQUESTED DRINK, PROVIDED PROMPTLY. DENIES OTHER NEEDS. LEFT RESTING COMFORTABLY IN BED. WILL CTM. PT IS ON ROOM AIR. IV TO THE LEFT FOREARM, SALINE LOCKED. PT IS UP WITH STANDBY ASSIST. RUNS PACED ON THE MONITOR. PT IS ALERT BUT CONFUSED TO PLACE, TIME AND SITUATION. SUPPOSED TO HAVE DIALYSIS TODAY.
--- NOTE | 2019-02-10 08:11 | NUR ---
ADMINISTERED PRN ZOFRAN FOR NAUSEA AND VOMITING. PT COMPLAINT OF CONSTANCT N/V.
[2019-02-10 09:39] VITALS: BP 130/54
--- NOTE | 2019-02-10 09:39 | MORECARE ---
CASE MANAGEMENT DISCHARGE SUMMARY PATIENT: MARC CHADWICK UNIT: [id number] ADM DATE: 02/07/19 AGE: 74 : [birth year] SEX: M ROOM/BED: D.2108 AUTHOR: RADHA MCGRATH PHYSICIAN: REFERRING PHYSICIAN: FÁTIMA LEMUS MD DATE OF SERVICE: 02/10/19 Discharge Plan Patient Name: MARC CHADWICK Facility: [facility]:[place] : 1945 Planned Disposition: Inpatient Rehab Anticipated Discharge Date: Discharge Date: Expected LOS: Initial Reviewer: [id number] Initial Review Date: 02/09/2019 Generated: 02/10/19 10:39 am Comments DCP- Discharge Planning Updated by [id number]: Elie Broderick on 02/10/19 8:[address] Patient Name: MARC CHADWICK Encounter No: [id number] : 1945 Primary Insurance: MEDICARE A & B Anticipated DC Date: Planned Disposition: HOME DCP follow-up note: CM RECEIVED DISCHARGE PLANNING ORDER, MET WITH PT IN ROOM. PT NOW REPORTS HE TALKED TO A DOCTOR WHO TOLD HIM THEY DON'T NEED TO CUT OFF HIS FOOD UNLESS IT TURNS BLACK. PT STATES HE WANTS TO DISCHARGE HOME. CM DISCUSSED AVAILABILITY OF REHAB SERVICES, MEDICAL EQUIPMENT AND HOME HEALTH. PT HAD CM FIND HIS CLOTHES, PT POINTS OUT HE HAS A CANE AND CLOTHES, DENIES FURHTER DISCHARGE NEEDS. PT STATES HE WILL BE TAKING A TAXI HOME. PT ASKED FOR A SPRITE SODA UNOPENED. CM SPOKE TO NURSE WHO PROVIDED PERMISSION FOR DIET SODA, CM PROVIDED PT WITH UNOPENED, REFRIGERATED DIET TWIST SODA. PT THANKED CM AND DENIES FURTHER NEEDS. PT STATES HE WANTS TO GO HOME NOW, CM INFORMED PT THAT THE DOCTOR PLANS TO LET HIM GO HOME TOMORROW. CM TO CONTINUE TO FOLLOW AND ASSIST. IMPORTANT MESSAGE FROM MEDICARE PROVIDED AND EXPLAINED. PT PLANS TO DISCHARGE HOME, DENIES NEED OF REHAB, HOME HEALTH AND MEDICAL EQUIPMENT. PT STATES HE IS TAKING TAXI HOME. CM TO CONTINUE TO FOLLOW AND ASSIST IF NEEDED. 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 PT REPORTS HE HAD DECIDED TO HAVE HIS FOOT CUT OFF ADVISED BY THE DOCTOR. PT STATES HE IS GOING TO REHAB AND DOES NOT WANT TO GO TO A USP. PT WANTS REHAB "HERE." CM REPORTS LIVING AT HOME INDEPENDENTLY AND ALONE WITH ONE DOG. PT THREW UP. CM OFFERED TO CALL NURSE, PT STATES THE NUSRSE KNOWS. CM EXCUSED SELF AND INFORMED BEDSIDE NURSE. CM RETURN TO PT AND CONTINUED ASSESSMENT. PT STATES HE HAS GLUCOMETER, CANE, WALKER AND WHEELCHAIR. PT STATES HE LEFT HIS ELECTRIC SCOOTER "SOMEWHERE AROUND HERE". PT'S MEDICAL EQUIPMENT PROVIDER IS THE [employer] OR [employer] ON [facility]. AND NO OUTSIDE SERVICES ASSISTING IN THE HOME. CM DISCUSSED AVAILABILITY OF HOME HEALTH, REHAB SERVICES AND MEDICAL EQUIPMENT. PT WANTS REHAB AT [place]. PT DOES NOT WANT TO CONSIDER LONG-TERM FACILITIES AT THIS TIME AND THINKS HE WILL BE ABLE TO GO TROUGH INPATIENT REHAB AND THEN RETURN HOME INDEPENDENLTY. PT STATES HE HAS BEEN THROUGH ROUGH TIMES BEFORE AND WILL GET THROUGH THIS TOO. PT ATTENDS DIALYSIS AT [facility], [facility], 1300 HOURS AND HAS BEEN RIDING HIS ELECTRIC SCOOTER TO AND FROM DIALYSIS TREATMENT. PT WANTS SCREENING FOR INPATIENT REHAB AT [place] AFTER AMPUTATION. CM WAITING SURGERY, THERAPY AND PROGRESSION OF TREATMENT. Meat Lugger: Elie Broderick DCPIA - Discharge Planning Initial Assessment Updated by [id number]: Elie Broderick on 02/09/19 3:47 pm * Is the patient Alert and Oriented? Yes * How many steps to enter\\exit or inside your home? RAMP * PCP NO PRIMARY CARE DOCTOR * [facility] [employer] [facility]. * Preadmission Environment Home Alone * ADLs Independent * Equipment Cane Glucometer Power Chair or Electric Scooter Walker Wheelchair * Other Equipment [place] - MEDICAL EQUIPMENT PROVIDER * List name and contact numbers for known caregivers / representatives who currently or will assist patient after discharge: JULIO C PLEITEZ, FRIEND, * Verbal permission to speak to the caregivers and representatives has been obtained from the patient. N/A * Community resources currently utilized Other * Please name any agencies selected above. OUTPATIENT DIAYSIS, MWF, 1330 HOURS, DRIVES SELF ON SCOOTER, HAS TAKEN [employer] TRANSIT BUS IN THE PAST. * Additional services required to return to the preadmission environment? Yes * Can the patient safely return to the preadmission environment? Yes * Has this patient been hospitalized within the prior 30 days at any hospital? Yes Coverage Notice Reviewer: [id number] Farooq Broderick Notice Issued Date-Time: 02/10/2019 9:10 Notice Type: IM Discharge Notice Notice Delivered To: Patient Relationship to Patient: Solid Die Cutter Name: Delivery Method: HAND - Hand Delivered Lakisha Days: Prior Verbal Notification: Recipient Understood Notice: Yes Recipient Signature: Med Rec Note Co-signed by Attending: Coverage Notice Comment: PATIENT REPORTS INABILITY TO SIGN ANYTHING RIGHT NOW Last DP export: 02/09/19 2:53 p Patient Name: MARC CHADWICK Page [phone] at 0939 All edits/amendments must be made on the electronic document DICTATION DATE: 02/10/19938 BOOSTER ASSEMBLER: JANN 02/10/19938 RPT#: [id number] DC DATE: STATUS: ADM IN [facility] [address] [place] [address] END OF REPORT
--- NOTE | 2019-02-10 10:12 | NUR ---
PT VERY CONFUSED. GOT HIMSELF OUT OF BED AND DRESSED. ATTEMPTED TO LEAVE FLOOR. VERY AGITATED. COERCED PT BACK INTO. BRANDON ALARM PLACED ON BED. 2 SIDE RAILS AND BEDSIDE TABLE NEXT TO PATIENT. ATTMEPTED TO CONTACT DR. GOMEZ AND RENAL CATERING ASSISTANT THAT IS BOARDING HOUSE MANAGER. NO RETURN.
--- NOTE | 2019-02-10 10:57 | NUR ---
Nutrition Follow-up: Chart reviewed. Pt remains confused and c/o N/V. Per record, 0% of breakfast eaten this AM. Noted possible d/c tomorrow if N/V improves. Diet: Renal ADA, Nepro BID No new wt Last BM: 02/07 per chart Labs noted: K+ 4.3, PO4 7.5, Ca 10.2 Meds noted: Nephrovite, Zofran Continue current diet. [place] food preferences within diet restrictions. RD following.
--- NOTE | 2019-02-10 12:05 | NUR ---
PT IS IN DIALYSIS.
--- NOTE | 2019-02-10 13:49 | NUR ---
PT IN DIALYSIS.
--- NOTE | 2019-02-10 14:23 | NUR ---
PT RETURNED FROM DIALYSIS. DIALYSIS NURSE REPORTED PT VOMITED UPON ARRIVAL AND DEPATURE. THEY WERE NOT ABLE TO PULL ANY FLUIDS OFF OF PATIENTS IN DIALYSIS. RESTING COMFORTABLY AT THIS TIME.
--- NOTE | 2019-02-10 15:03 | NUR ---
PT RESTING COMFORTABLY IN. ALERT BUT CONFUSED. ATTEMPTING TO EAT JELLO. STILL VERY NAUSEOUS. NO VOMIT SINCE REUTRNING FROM DIALYSIS.
[2019-02-10 17:09] VITALS: BP 139/58
--- NOTE | 2019-02-10 17:52 | NUR ---
PT RESTING COMFORTABLY IN BED ON THE RIGHT SIDE. EASILY AROUSES TO VOICE. DENIES ANY NEEDS AT THIS TIME. WILL CTM.
--- NOTE | 2019-02-10 18:36 | NUR ---
PT RESTING COMFORTABLY IN BED ON RIGHT SIDE, BREATHING EVEN AND UNLABORED, NO S/S OF DISTRESS NTOED. WILL CTM.
--- NOTE | 2019-02-10 19:10 | NUR ---
PT CARE ASSUMED. BEDSIDE SHIFT REPORT COMPLETE. PT SITTING ON SIDE OF BED YELLING AND DEMANDING A SHOWER. SHOWER PROVIDED WITH LINEN CHANGE. PT CONTINUES TO YELL AND IS DISASIFIED WITH CARE. NO S/S OF DISTRESS NOTED. NO FURTHER VOICED C/O OR CONCERNS. CALL LIGHT IN REACH. WILL CTM.
[2019-02-10 20:00] VITALS: BP 120/49
[2019-02-11 04:00] VITALS: BP 115/59
[2019-02-11 04:48] LABS: BASOPHILS 0.2 % (0-2); EOSINOPHILS 5.1 % (0-7); HEMOGLOBIN 10.3 g/dL (13.5-17.5); IMMATURE GRANULOCYTES 0.2 % (0-5); LYMPHOCYTES 22.5 % (15-50); MCH 32.3 pg (26.0-34.0); MCHC 33.2 g/dL (31.0-37.0); MCV 97.2 fL (80.0-100.0); MEAN PLATELET VOLUME 9.3 fL (7.4-10.4); MONOCYTES 16.5 % (2-11); NEUTROPHILS 55.5 % (40-80); PLATELET COUNT 165 10x3/uL (130-400); RBC 3.19 10x6/uL (4.20-6.10); RDW 14.7 % (11.5-14.5); WBC 5.5 10x3/uL (4.8-10.8)
[2019-02-11 05:07] LABS: ANION GAP 15.5 mmol/L (8-16); CALCIUM 9.4 mg/dL (8.5-10.1); CARBON DIOXIDE 32.1 mmol/L (21.0-32.0); CREATININE - SERUM 9.6 mg/dL (0.6-1.3); PHOSPHOROUS 7.4 mg/dL (2.5-4.9); POTASSIUM - SERUM 4.6 mmol/L (3.5-5.1)
--- NOTE | 2019-02-11 07:00 | NUR ---
PT RESTING COMFORTABLY IN BED WITH EYES CLOSED, BREATHING EVEN AND NON LABORED. NO S/S OF DISTRESS NOTED. WILL CTM.
--- NOTE | 2019-02-11 07:34 | MORECARE ---
CASE MANAGEMENT DISCHARGE SUMMARY PATIENT: MARC CHADWICK UNIT: [id number] ADM DATE: 02/07/19 AGE: 74 : [birth year] SEX: M ROOM/BED: D.2101 AUTHOR: RADHA MCGRATH PHYSICIAN: REFERRING PHYSICIAN: FÁTIMA LEMUS MD DATE OF SERVICE: 02/11/19 Discharge Plan Patient Name: MARC CHADWICK Facility: [facility]:[place] : 1945 Planned Disposition: Inpatient Rehab Anticipated Discharge Date: Discharge Date: Expected LOS: Initial Reviewer: [id number] Initial Review Date: 02/09/2019 Generated: 02/11/19 8:34 am Comments DCP- Discharge Planning Updated by [id number]: Elie Broderick on 02/10/19 8:[address] Patient Name: MARC CHADWICK Encounter No: [id number] : 1945 Primary Insurance: MEDICARE A & B Anticipated DC Date: Planned Disposition: HOME DCP follow-up note: CM RECEIVED DISCHARGE PLANNING ORDER, MET WITH PT IN ROOM. PT NOW REPORTS HE TALKED TO A DOCTOR WHO TOLD HIM THEY DON'T NEED TO CUT OFF HIS FOOD UNLESS IT TURNS BLACK. PT STATES HE WANTS TO DISCHARGE HOME. CM DISCUSSED AVAILABILITY OF REHAB SERVICES, MEDICAL EQUIPMENT AND HOME HEALTH. PT HAD CM FIND HIS CLOTHES, PT POINTS OUT HE HAS A CANE AND CLOTHES, DENIES FURHTER DISCHARGE NEEDS. PT STATES HE WILL BE TAKING A TAXI HOME. PT ASKED FOR A SPRITE SODA UNOPENED. CM SPOKE TO NURSE WHO PROVIDED PERMISSION FOR DIET SODA, CM PROVIDED PT WITH UNOPENED, REFRIGERATED DIET TWIST SODA. PT THANKED CM AND DENIES FURTHER NEEDS. PT STATES HE WANTS TO GO HOME NOW, CM INFORMED PT THAT THE DOCTOR PLANS TO LET HIM GO HOME TOMORROW. CM TO CONTINUE TO FOLLOW AND ASSIST. IMPORTANT MESSAGE FROM MEDICARE PROVIDED AND EXPLAINED. PT PLANS TO DISCHARGE HOME, DENIES NEED OF REHAB, HOME HEALTH AND MEDICAL EQUIPMENT. PT STATES HE IS TAKING TAXI HOME. CM TO CONTINUE TO FOLLOW AND ASSIST IF NEEDED. 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 PT REPORTS HE HAD DECIDED TO HAVE HIS FOOT CUT OFF ADVISED BY THE DOCTOR. PT STATES HE IS GOING TO REHAB AND DOES NOT WANT TO GO TO A DETENTION. PT WANTS REHAB "HERE." CM REPORTS LIVING AT HOME INDEPENDENTLY AND ALONE WITH ONE DOG. PT THREW UP. CM OFFERED TO CALL NURSE, PT STATES THE NUSRSE KNOWS. CM EXCUSED SELF AND INFORMED BEDSIDE NURSE. CM RETURN TO PT AND CONTINUED ASSESSMENT. PT STATES HE HAS GLUCOMETER, CANE, WALKER AND WHEELCHAIR. PT STATES HE LEFT HIS ELECTRIC SCOOTER "SOMEWHERE AROUND HERE". PT'S MEDICAL EQUIPMENT PROVIDER IS THE [employer] OR [employer] ON [facility]. AND NO OUTSIDE SERVICES ASSISTING IN THE HOME. CM DISCUSSED AVAILABILITY OF HOME HEALTH, REHAB SERVICES AND MEDICAL EQUIPMENT. PT WANTS REHAB AT [place]. PT DOES NOT WANT TO CONSIDER FPC FACILITIES AT THIS TIME AND THINKS HE WILL BE ABLE TO GO TROUGH INPATIENT REHAB AND THEN RETURN HOME INDEPENDENLTY. PT STATES HE HAS BEEN THROUGH ROUGH TIMES BEFORE AND WILL GET THROUGH THIS TOO. PT ATTENDS DIALYSIS AT [facility], 1300 HOURS AND HAS BEEN RIDING HIS ELECTRIC SCOOTER TO AND FROM DIALYSIS TREATMENT. PT WANTS SCREENING FOR INPATIENT REHAB AT [place] AFTER AMPUTATION. CM WAITING SURGERY, THERAPY AND PROGRESSION OF TREATMENT. Case Manager Specialist: Elie Broderick DCPIA - Discharge Planning Initial Assessment Updated by [email or web address]: Elie Broderick on 02/09/19 3:47 pm * Is the patient Alert and Oriented? Yes * How many steps to enter\\exit or inside your home? RAMP * PCP NO PRIMARY CARE DOCTOR * [facility] [employer] [facility] * Preadmission Environment Home Alone * ADLs Independent * Equipment Cane Glucometer Power Chair or Electric Scooter Walker Wheelchair * Other Equipment [place] - MEDICAL EQUIPMENT PROVIDER * List name and contact numbers for known caregivers / representatives who currently or will assist patient after discharge: JULIO C PLEITEZ, FRIEND, * Verbal permission to speak to the caregivers and representatives has been obtained from the patient. N/A * Community resources currently utilized Other * Please name any agencies selected above. OUTPATIENT DIAYSIS, MWF, 1330 HOURS, DRIVES SELF ON SCOOTER, HAS TAKEN [employer] TRANSIT BUS IN THE PAST. * Additional services required to return to the preadmission environment? Yes * Can the patient safely return to the preadmission environment? Yes * Has this patient been hospitalized within the prior 30 days at any hospital? Yes Coverage Notice Reviewer: [id number] Farooq Broderick Notice Issued Date-Time: 02/10/2019 9:10 Notice Type: IM Discharge Notice Notice Delivered To: Patient Relationship to Patient: Mobile Heavy Equipment Operator Name: Delivery Method: HAND - Hand Delivered Lakisha Days: Prior Verbal Notification: Recipient Understood Notice: Yes Recipient Signature: Med Rec Note Co-signed by Attending: Coverage Notice Comment: PATIENT REPORTS INABILITY TO SIGN ANYTHING RIGHT NOW Last DP export: 02/10/19 8:39 a Patient Name: MARC CHADWICK Page [id number] at 0734 All edits/amendments must be made on the electronic document DICTATION DATE: 02/11/19733 STONE POLISHER MACHINE: JANN 02/11/19733 RPT#: [id number] DC DATE: STATUS: ADM IN [facility] [address] [place] [address] END OF REPORT
--- NOTE | 2019-02-11 07:51 | NUR ---
PT GOT HIMSELF DRESSED AND OUT OF ROOM USING BEDSIDE TABLE AND MADE IT TO A WHEELCHAIR IN THE HALLWAY. PT IS CONFUSED. NURSE REORIENTED PT AND COERCED PT BACK INTO BED, BRANDON ALARM IS ON. WHEELCHAIR REMOVED FROM SIGHT OF PT AND BEDSIDE TABLE LEFT OUTSIDE OF ROOM. WILL CTM.
--- NOTE | 2019-02-11 10:49 | NUR ---
ADMINISTERED MORNING MEDICATION AT THIS TIME, NO TROUBLE SWALLOWING. PT IS ALERT WITH SLIGHT CONFUSION AT THIS TIME. RESTING COMFORTABLY IN BED WITH 2 BED RAILS AND BEDSIDE TABLE ACROSS LAP. DENIES ANY NEEDS AT THIS TIME. WILL CTM.
--- NOTE | 2019-02-11 11:53 | NUR ---
PT CURRENTLY RESTING COMFORTABLY IN BED WITH EYES CLOSED, BREATHING EVEN AND UNLABORED. NO S/S OF DISTRESS NOTED. WILL CTM.
[2019-02-11 13:39] VITALS: BP 167/56
--- NOTE | 2019-02-11 14:25 | NUR ---
PT RESTING COMFORTABLY IN BED WITH EYES CLOSED, BREATHING EVEN AND UNLABORED. NO S/S OF DISTRESS NOTED AT THIS TIME. WILL CTM.
--- NOTE | 2019-02-11 14:36 | NUR ---
I have reviewed this patient and I concur with the Shift Assessment completed by the Licensed Practical Nurse today this shift.
--- NOTE | 2019-02-11 14:39 | NUR ---
I have reviewed this patient and I concur with the Shift Assessment completed by the Licensed Practical Nurse today this shift.
--- NOTE | 2019-02-11 15:12 | NUR ---
PT RESTING COMFORTABLY UPON ENTERING IN SUPINE POSITION, EYES CLOSED. BREATHING EVEN AND UNLABORED. NO S/S OF DISTRESS NOTED AT THIS TIME. WILL CTM.
--- NOTE | 2019-02-11 16:44 | NUR ---
ADMINSITERED MEDICATION AT THIS TIME, NO TROUBLE SWALLOWING. PT IS ALERT AND CONFUSED. RESTING COMFORTABLY IN BED AT THIS TIME. NO NEEDS AT THIS TIME. WILL CTM.
[2019-02-11 17:56] VITALS: BP 159/47
--- NOTE | 2019-02-11 18:20 | NUR ---
PT RESTING COMFORTABLY IN BED WITH LEFT LEG PROPPED ON PILLOW. PT IS CONFUSED. REORIENTED TO TIME, PLACE AND SITUATION. DENIES ANY NEEDS AT THIS TIME. WILL CTM.
--- NOTE | 2019-02-11 19:25 | NUR ---
PT CARE ASSUMED. BEDSIDE SHIFT REPORT COMPLETE. PT IN BED WITH LEG ELEVATED ON BEDSIDE TABLE. ALERT AND CONFUSED TO TIME AND SITUATION. RR EVEN AND UNLABORED. NO S/S OF DISTRESS NOTED. PT C/O OF NAUSEA. NO FURTHER NEEDS EXPRESSED. CALL LIGHT IN REACH. WILL CTM.
[2019-02-11 20:00] VITALS: BP 148/61
[2019-02-12] VITALS: BP 124/49
[2019-02-12 04:42] LABS: BASOPHILS 0.3 % (0-2); EOSINOPHILS 5.7 % (0-7); HEMATOCRIT 31.2 % (42.0-54.0); HEMOGLOBIN 10.6 g/dL (13.5-17.5); IMMATURE GRANULOCYTES 0.3 % (0-5); LYMPHOCYTES 15.7 % (15-50); MCH 32.7 pg (26.0-34.0); MCV 96.3 fL (80.0-100.0); MONOCYTES 9.3 % (2-11); NEUTROPHILS 68.7 % (40-80); RBC 3.24 10x6/uL (4.20-6.10); RDW 14.5 % (11.5-14.5); WBC 6.8 10x3/uL (4.8-10.8)
[2019-02-12 04:43] LABS: PLATELET COUNT 201 10x3/uL (130-400)
[2019-02-12 04:52] LABS: ANION GAP 16.9 mmol/L (8-16); CALCIUM 9.3 mg/dL (8.5-10.1); CREATININE - SERUM 11.4 mg/dL (0.6-1.3); PHOSPHOROUS 7.8 mg/dL (2.5-4.9)
[2019-02-12 04:56] LABS: POTASSIUM - SERUM 3.9 mmol/L (3.5-5.1)
--- NOTE | 2019-02-12 08:42 | NUR ---
PATIENT IS RESTING QUIETLY AT THIS TIME. DENIES ANY NEEDS.
[2019-02-12 08:53] VITALS: BP 138/43
--- NOTE | 2019-02-12 10:27 | MORECARE ---
CASE MANAGEMENT DISCHARGE SUMMARY PATIENT: MARC CHADWICK UNIT: [id number] ADM DATE: 02/07/19 AGE: 74 : 47 SEX: M ROOM/BED: D.2104 AUTHOR: RADHA MCGRATH PHYSICIAN: REFERRING PHYSICIAN: FÁTIMA LEMUS MD DATE OF SERVICE: 02/12/19 Discharge Plan Patient Name: MARC CHADWICK Facility: [facility]:[place] : 1945 Planned Disposition: Inpatient Rehab Anticipated Discharge Date: Discharge Date: Expected LOS: Initial Reviewer: [id number] Initial Review Date: 02/09/2019 Generated: 02/12/19 11:26 am Comments DCP- Discharge Planning Updated by [id number]: Codie Gunter on 02/12/19 9:[address] DC PLAN: Return home with [facility]. CM met with patient to discuss discharge and order for home health. Patient has been refusing home health but is now agreeable to home health. The patient did not have a preference on home health agencies. [facility] presented to patient for [facility]. Patient stated he could not sign the form because he can not read. He stated he is agreeable with contacting [facility] for care. CM contacted [facility], spoke to [place], faxed referral to [facility]. CM requested the make a home visit on Thursday to ensure he has the proper medications and do a home environment evaluation. Patient asked about a second opinion and asked about going to the [place]. CM explained to him that he is able to get a second opinion and he can go where he would like for that. He stated he wanted to go by Ambulance. Cm informed him that he is being discharged and is medically stable according to his physician. He verbalized understanding. He is planning on taking a Taxi to his home today. He also reported that a man lives with him at his home. CM will continue to follow and will assist as needed with dc plans/needs. Codie Gunter RN, [facility] DCP- Discharge Planning Updated by [id number]: Elie Broderick on 02/10/19 8:[address] Patient Name: MARC CHADWICK Encounter No: [id number] : 1945 Primary Insurance: MEDICARE A & B Anticipated DC Date: Planned Disposition: HOME DCP follow-up note: CM RECEIVED DISCHARGE PLANNING ORDER, MET WITH PT IN ROOM. PT NOW REPORTS HE TALKED TO A DOCTOR WHO TOLD HIM THEY DON'T NEED TO CUT OFF HIS FOOD UNLESS IT TURNS BLACK. PT STATES HE WANTS TO DISCHARGE HOME. CM DISCUSSED AVAILABILITY OF REHAB SERVICES, MEDICAL EQUIPMENT AND HOME HEALTH. PT HAD CM FIND HIS CLOTHES, PT POINTS OUT HE HAS A CANE AND CLOTHES, DENIES FURHTER DISCHARGE NEEDS. PT STATES HE WILL BE TAKING A TAXI HOME. PT ASKED FOR A SPRITE SODA UNOPENED. CM SPOKE TO NURSE WHO PROVIDED PERMISSION FOR DIET SODA, CM PROVIDED PT WITH UNOPENED, REFRIGERATED DIET TWIST SODA. PT THANKED CM AND DENIES FURTHER NEEDS. PT STATES HE WANTS TO GO HOME NOW, CM INFORMED PT THAT THE DOCTOR PLANS TO LET HIM GO HOME TOMORROW. CM TO CONTINUE TO FOLLOW AND ASSIST. IMPORTANT MESSAGE FROM MEDICARE PROVIDED AND EXPLAINED. PT PLANS TO DISCHARGE HOME, DENIES NEED OF REHAB, HOME HEALTH AND MEDICAL EQUIPMENT. PT STATES HE IS TAKING TAXI HOME. CM TO CONTINUE TO FOLLOW AND ASSIST IF NEEDED. 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 PT REPORTS HE HAD DECIDED TO HAVE HIS FOOT CUT OFF ADVISED BY THE DOCTOR. PT STATES HE IS GOING TO REHAB AND DOES NOT WANT TO GO TO A ASSISTED. PT WANTS REHAB "HERE." CM REPORTS LIVING AT HOME INDEPENDENTLY AND ALONE WITH ONE DOG. PT THREW UP. CM OFFERED TO CALL NURSE, PT STATES THE NUSRSE KNOWS. CM EXCUSED SELF AND INFORMED BEDSIDE NURSE. CM RETURN TO PT AND CONTINUED ASSESSMENT. PT STATES HE HAS GLUCOMETER, CANE, WALKER AND WHEELCHAIR. PT STATES HE LEFT HIS ELECTRIC SCOOTER "SOMEWHERE AROUND HERE". PT'S MEDICAL EQUIPMENT PROVIDER IS THE [employer] ORDER OR [place] [employer] ON [facility]. AND NO OUTSIDE SERVICES ASSISTING IN THE HOME. CM DISCUSSED AVAILABILITY OF HOME HEALTH, REHAB SERVICES AND MEDICAL EQUIPMENT. PT WANTS REHAB AT [place]. PT DOES NOT WANT TO CONSIDER [facility] FACILITIES AT THIS TIME AND THINKS HE WILL BE ABLE TO GO TROUGH INPATIENT REHAB AND THEN RETURN HOME INDEPENDENLTY. PT STATES HE HAS BEEN THROUGH ROUGH TIMES BEFORE AND WILL GET THROUGH THIS TOO. PT ATTENDS DIALYSIS AT [facility], MWF, 1300 HOURS AND HAS BEEN RIDING HIS ELECTRIC SCOOTER TO AND FROM DIALYSIS TREATMENT. PT WANTS SCREENING FOR INPATIENT REHAB AT [place] AFTER AMPUTATION. CM WAITING SURGERY, THERAPY AND PROGRESSION OF TREATMENT. Bulk Tank Car Unloader: Elie Broderick DCPIA - Discharge Planning Initial Assessment Updated by LES: Elie Broderick on 02/09/19 3:47 pm * Is the patient Alert and Oriented? Yes * How many steps to enter\\exit or inside your home? RAMP * PCP NO PRIMARY CARE DOCTOR * Pharmacy [place] [facility] [place] [facility]. * Preadmission Environment Home Alone * ADLs Independent * Equipment Cane Glucometer Power Chair or Electric Scooter Walker Wheelchair * Other Equipment [place] - MEDICAL EQUIPMENT PROVIDER * List name and contact numbers for known caregivers / representatives who currently or will assist patient after discharge: JULIO C PLEITEZ, FRIEND, * Verbal permission to speak to the caregivers and representatives has been obtained from the patient. N/A * Community resources currently utilized Other * Please name any agencies selected above. OUTPATIENT DIAYSIS, [facility], 1330 HOURS, DRIVES SELF ON SCOOTER, HAS TAKEN [employer] TRANSIT BUS IN THE PAST. * Additional services required to return to the preadmission environment? Yes * Can the patient safely return to the preadmission environment? Yes * Has this patient been hospitalized within the prior 30 days at any hospital? Yes Coverage Notice Reviewer: [id number] - Elie Broderick Notice Issued Date-Time: 02/10/2019 9:10 Notice Type: IM Discharge Notice Notice Delivered To: Patient Relationship to Patient: Educational Advisor Name: Delivery Method: HAND - Hand Delivered Lakisha Days: Prior Verbal Notification: Recipient Understood Notice: Yes Recipient Signature: Med Rec Note Co-signed by Attending: Coverage Notice Comment: PATIENT REPORTS INABILITY TO SIGN ANYTHING RIGHT NOW Last DP export: 02/11/19 6:34 a Patient Name: MARC CHADWICK Page [phone] at 1027 All edits/amendments must be made on the electronic document DICTATION DATE: 02/12/19 1026 MODEL MAKER SCALE: JANN 02/12/19 1026 RPT#: [id number] DC DATE: STATUS: ADM IN [facility] [address] [place] [address] END OF REPORT
--- NOTE | 2019-02-12 10:34 | MORECARE ---
CASE MANAGEMENT DISCHARGE SUMMARY PATIENT: MARC CHADWICK UNIT: [id number] ADM DATE: 02/07/19 AGE: 74 : 47 SEX: M ROOM/BED: D.2100 AUTHOR: RADHA MCGRATH PHYSICIAN: REFERRING PHYSICIAN: FÁTIMA LEMUS MD DATE OF SERVICE: 02/12/19 Discharge Plan Patient Name: MARC CHADWICK Facility: [facility]:[place] : 1945 Planned Disposition: Inpatient Rehab Anticipated Discharge Date: Discharge Date: Expected LOS: Initial Reviewer: [id number] Initial Review Date: 02/09/2019 Generated: 02/12/19 11:33 am Comments DCP- Discharge Planning Updated by [email or web address]: Codie Gunter on 02/12/19 9:[address] DC PLAN: Return home with [facility]. CM met with patient to discuss discharge and order for home health. Patient has been refusing home health but is now agreeable to home health. The patient did not have a preference on home health agencies. [facility] presented to patient for [facility]. Patient stated he could not sign the form because he can not read. He stated he is agreeable with contacting [facility] for care. CM contacted [facility], spoke to [employer], faxed referral to [facility]. CM requested the make a home visit on Thursday to ensure he has the proper medications and do a home environment evaluation. Patient asked about a second opinion and asked about going to the [place]. CM explained to him that he is able to get a second opinion and he can go where he would like for that. He stated he wanted to go by Ambulance. Cm informed him that he is being discharged and is medically stable according to his physician. He verbalized understanding. He is planning on taking a Taxi to his home today. He also reported that a man lives with him at his home. CM will continue to follow and will assist as needed with dc plans/needs. Codie Gunter RN, [facility] DCP- Discharge Planning Updated by [id number]: Elie Broderick on 02/10/19 8:[address] Patient Name: MARC CHADWICK Encounter No: [id number] : 1945 Primary Insurance: MEDICARE A & B Anticipated DC Date: Planned Disposition: HOME DCP follow-up note: CM RECEIVED DISCHARGE PLANNING ORDER, MET WITH PT IN ROOM. PT NOW REPORTS HE TALKED TO A DOCTOR WHO TOLD HIM THEY DON'T NEED TO CUT OFF HIS FOOD UNLESS IT TURNS BLACK. PT STATES HE WANTS TO DISCHARGE HOME. CM DISCUSSED AVAILABILITY OF REHAB SERVICES, MEDICAL EQUIPMENT AND HOME HEALTH. PT HAD CM FIND HIS CLOTHES, PT POINTS OUT HE HAS A CANE AND CLOTHES, DENIES FURHTER DISCHARGE NEEDS. PT STATES HE WILL BE TAKING A TAXI HOME. PT ASKED FOR A SPRITE SODA UNOPENED. CM SPOKE TO NURSE WHO PROVIDED PERMISSION FOR DIET SODA, CM PROVIDED PT WITH UNOPENED, REFRIGERATED DIET TWIST SODA. PT THANKED CM AND DENIES FURTHER NEEDS. PT STATES HE WANTS TO GO HOME NOW, CM INFORMED PT THAT THE DOCTOR PLANS TO LET HIM GO HOME TOMORROW. CM TO CONTINUE TO FOLLOW AND ASSIST. IMPORTANT MESSAGE FROM MEDICARE PROVIDED AND EXPLAINED. PT PLANS TO DISCHARGE HOME, DENIES NEED OF REHAB, HOME HEALTH AND MEDICAL EQUIPMENT. PT STATES HE IS TAKING TAXI HOME. CM TO CONTINUE TO FOLLOW AND ASSIST IF NEEDED. 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 PT REPORTS HE HAD DECIDED TO HAVE HIS FOOT CUT OFF ADVISED BY THE DOCTOR. PT STATES HE IS GOING TO REHAB AND DOES NOT WANT TO GO TO A [facility]. PT WANTS REHAB "HERE." CM REPORTS LIVING AT HOME INDEPENDENTLY AND ALONE WITH ONE DOG. PT THREW UP. CM OFFERED TO CALL NURSE, PT STATES THE NUSRSE KNOWS. CM EXCUSED SELF AND INFORMED BEDSIDE NURSE. CM RETURN TO PT AND CONTINUED ASSESSMENT. PT STATES HE HAS GLUCOMETER, CANE, WALKER AND WHEELCHAIR. PT STATES HE LEFT HIS ELECTRIC SCOOTER "SOMEWHERE AROUND HERE". PT'S MEDICAL EQUIPMENT PROVIDER IS THE [employer] ORDER OR [employer] ON [facility]. AND NO OUTSIDE SERVICES ASSISTING IN THE HOME. CM DISCUSSED AVAILABILITY OF HOME HEALTH, REHAB SERVICES AND MEDICAL EQUIPMENT. PT WANTS REHAB AT [place]. PT DOES NOT WANT TO CONSIDER [facility] FACILITIES AT THIS TIME AND THINKS HE WILL BE ABLE TO GO TROUGH INPATIENT REHAB AND THEN RETURN HOME INDEPENDENLTY. PT STATES HE HAS BEEN THROUGH ROUGH TIMES BEFORE AND WILL GET THROUGH THIS TOO. PT ATTENDS DIALYSIS AT [facility], MWF, 1300 HOURS AND HAS BEEN RIDING HIS ELECTRIC SCOOTER TO AND FROM DIALYSIS TREATMENT. PT WANTS SCREENING FOR INPATIENT REHAB AT [place] AFTER AMPUTATION. CM WAITING SURGERY, THERAPY AND PROGRESSION OF TREATMENT. Piano Case And Bench Assembler: Elie Broderick DCPIA - Discharge Planning Initial Assessment Updated by [id number]: Elie Broderick on 02/09/19 3:47 pm * Is the patient Alert and Oriented? Yes * How many steps to enter\\exit or inside your home? RAMP * PCP NO PRIMARY CARE DOCTOR * [facility] [place] [facility] * Preadmission Environment Home Alone * ADLs Independent * Equipment Cane Glucometer Power Chair or Electric Scooter Walker Wheelchair * Other Equipment [place] - MEDICAL EQUIPMENT PROVIDER * List name and contact numbers for known caregivers / representatives who currently or will assist patient after discharge: JULIO C PLEITEZ, FRIEND, * Verbal permission to speak to the caregivers and representatives has been obtained from the patient. N/A * Community resources currently utilized Other * Please name any agencies selected above. OUTPATIENT DIAYSIS, [facility], 1330 HOURS, DRIVES SELF ON SCOOTER, HAS TAKEN [employer] TRANSIT BUS IN THE PAST. * Additional services required to return to the preadmission environment? Yes * Can the patient safely return to the preadmission environment? Yes * Has this patient been hospitalized within the prior 30 days at any hospital? Yes External Providers External Provider: [facility] Next Contact Date: Service Request Date: Service Type: Resolution: Reviewer: Comments: Coverage Notice Reviewer: [id number] - Elie Broderick Notice Issued Date-Time: 02/10/2019 9:10 Notice Type: IM Discharge Notice Notice Delivered To: Patient Relationship to Patient: Guest Experience Manager Name: Delivery Method: HAND - Hand Delivered Lakisha Days: Prior Verbal Notification: Recipient Understood Notice: Yes Recipient Signature: Med Rec Note Co-signed by Attending: Coverage Notice Comment: PATIENT REPORTS INABILITY TO SIGN ANYTHING RIGHT NOW Last DP export: 02/12/19 9:27 a Patient Name: MARC CHADWICK Page [id number] at 1034 All edits/amendments must be made on the electronic document DICTATION DATE: 02/12/19 1033 EDGER SAW OPERATOR: JANN 02/12/19 1033 RPT#: [id number] DC DATE: STATUS: ADM IN [facility] [address] [place] [address] END OF REPORT
--- NOTE | 2019-02-12 12:53 | NUR ---
DISCHARGE TEACHING DONE AND PAPERS SIGNED. READ ALL PAPERS ALOUD TO THE PATIENT PER PATIENT REQUEST. PATIENT WAS FRUSTRATED AND WANTED TO GO TO THE [facility] FOR A SECOND OPPINION AND HE WANTED TO GO TO [facility] FOR AN OPPINION WELL. HE IS GOING HOME WITH A FRIEND. HE WANTED ME TO CALL HIM A CAB, AND RIGHT AFTER HE SENT ME TO CALL A CAB , HE PICKED UP THE PHONE AND CALLED A FRIEND TO COME PICK HIM UP. I DID NOT CALL THE CAB, HE GOT A RIDE WITH HIS FRIEND HOME. ALL PATIENT BELONGINGS HAVE GONE HOME WITH THE PATIENT. IV REMOVED WITH CATHETER INTACT.
--- NOTE | 2019-02-14 08:01 | MORECARE ---
CASE MANAGEMENT DISCHARGE SUMMARY PATIENT: MARC CHADWICK UNIT: [id number] ADM DATE: 02/07/19 AGE: 74 : [birth year] SEX: M ROOM/BED: D.2104 AUTHOR: RADHA MCGRATH PHYSICIAN: REFERRING PHYSICIAN: FÁTIMA LEMUS MD DATE OF SERVICE: 02/14/19 Discharge Plan Patient Name: MARC CHADWICK Facility: [facility]:[place] : 1945 Planned Disposition: Home with Home Health Anticipated Discharge Date: 02/12/19 Discharge Date: 02/12/2019 Expected LOS: 5 Initial Reviewer: [email or web address] Initial Review Date: 02/09/2019 Generated: 02/14/19 9:00 am Comments DCP- Discharge Planning Updated by [id number]: Codie Gunter on 02/12/19 9:[address] DC PLAN: Return home with [facility]. CM met with patient to discuss discharge and order for home health. Patient has been refusing home health but is now agreeable to home health. The patient did not have a preference on home health agencies. [facility] presented to patient [facility]. Patient stated he could not sign the form because he can not read. He stated he is agreeable with cm contacting [facility] for care. CM contacted [facility], spoke to [place], faxed referral to [facility]. CM requested the HH make a home visit on Thursday to ensure he has the proper medications and do a home environment evaluation. Patient asked about a second opinion and asked about going to the [place]. CM explained to him that he is able to get a second opinion and he can go where he would like for that. He stated he wanted to go by Ambulance. Cm informed him that he is being discharged and is medically stable according to his physician. He verbalized understanding. He is planning on taking a Taxi to his home today. He also reported that a man lives with him at his home. CM will continue to follow and will assist as needed with dc plans/needs. Codie Gunter RN, [facility] DCP- Discharge Planning Updated by [id number]: Elie Broderick on 02/10/19 8:[address] Patient Name: MARC CHADWICK Encounter No: [id number] : 1945 Primary Insurance: MEDICARE A & B Anticipated DC Date: Planned Disposition: HOME DCP follow-up note: CM RECEIVED DISCHARGE PLANNING ORDER, MET WITH PT IN ROOM. PT NOW REPORTS HE TALKED TO A DOCTOR WHO TOLD HIM THEY DON'T NEED TO CUT OFF HIS FOOD UNLESS IT TURNS BLACK. PT STATES HE WANTS TO DISCHARGE HOME. CM DISCUSSED AVAILABILITY OF REHAB SERVICES, MEDICAL EQUIPMENT AND HOME HEALTH. PT HAD CM FIND HIS CLOTHES, PT POINTS OUT HE HAS A CANE AND CLOTHES, DENIES FURHTER DISCHARGE NEEDS. PT STATES HE WILL BE TAKING A TAXI HOME. PT ASKED FOR A SPRITE SODA UNOPENED. CM SPOKE TO NURSE WHO PROVIDED PERMISSION FOR DIET SODA, CM PROVIDED PT WITH UNOPENED, REFRIGERATED DIET TWIST SODA. PT THANKED CM AND DENIES FURTHER NEEDS. PT STATES HE WANTS TO GO HOME NOW, CM INFORMED PT THAT THE DOCTOR PLANS TO LET HIM GO HOME TOMORROW. CM TO CONTINUE TO FOLLOW AND ASSIST. IMPORTANT MESSAGE FROM MEDICARE PROVIDED AND EXPLAINED. PT PLANS TO DISCHARGE HOME, DENIES NEED OF REHAB, HOME HEALTH AND MEDICAL EQUIPMENT. PT STATES HE IS TAKING TAXI HOME. CM TO CONTINUE TO FOLLOW AND ASSIST IF NEEDED. 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 PT REPORTS HE HAD DECIDED TO HAVE HIS FOOT CUT OFF ADVISED BY THE DOCTOR. PT STATES HE IS GOING TO REHAB AND DOES NOT WANT TO GO TO A FDC. PT WANTS REHAB "HERE." CM REPORTS LIVING AT HOME INDEPENDENTLY AND ALONE WITH ONE DOG. PT THREW UP. CM OFFERED TO CALL NURSE, PT STATES THE NUSRSE KNOWS. CM EXCUSED SELF AND INFORMED BEDSIDE NURSE. CM RETURN TO PT AND CONTINUED ASSESSMENT. PT STATES HE HAS GLUCOMETER, CANE, WALKER AND WHEELCHAIR. PT STATES HE LEFT HIS ELECTRIC SCOOTER "SOMEWHERE AROUND HERE". PT'S MEDICAL EQUIPMENT PROVIDER IS THE [employer] ORDER OR [employer] ON [facility]. AND NO OUTSIDE SERVICES ASSISTING IN THE HOME. CM DISCUSSED AVAILABILITY OF HOME HEALTH, REHAB SERVICES AND MEDICAL EQUIPMENT. PT WANTS REHAB AT [place]. PT DOES NOT WANT TO CONSIDER [place] FACILITIES AT THIS TIME AND THINKS HE WILL BE ABLE TO GO TROUGH INPATIENT REHAB AND THEN RETURN HOME INDEPENDENLTY. PT STATES HE HAS BEEN THROUGH ROUGH TIMES BEFORE AND WILL GET THROUGH THIS TOO. PT ATTENDS DIALYSIS AT [facility], MWF, 1300 HOURS AND HAS BEEN RIDING HIS ELECTRIC SCOOTER TO AND FROM DIALYSIS TREATMENT. PT WANTS SCREENING FOR INPATIENT REHAB AT [place] AFTER AMPUTATION. CM WAITING SURGERY, THERAPY AND PROGRESSION OF TREATMENT. Assistant Womens Volleyball Coach: Elie Broderick DCPIA - Discharge Planning Initial Assessment Updated by [id number]: Elie Broderick on 02/09/19 3:47 pm * Is the patient Alert and Oriented? Yes * How many steps to enter\\exit or inside your home? RAMP * PCP NO PRIMARY CARE DOCTOR * Pharmacy [place] [email or web address] OR [employer], [facility]. * Preadmission Environment Home Alone * ADLs Independent * Equipment Cane Glucometer Power Chair or Electric Scooter Walker Wheelchair * Other Equipment [place] - MEDICAL EQUIPMENT PROVIDER * List name and contact numbers for known caregivers / representatives who currently or will assist patient after discharge: JULIO C PLEITEZ, FRIEND, * Verbal permission to speak to the caregivers and representatives has been obtained from the patient. N/A * Community resources currently utilized Other * Please name any agencies selected above. OUTPATIENT DIAYSIS, MWF, 1330 HOURS, DRIVES SELF ON SCOOTER, HAS TAKEN [employer] TRANSIT BUS IN THE PAST. * Additional services required to return to the preadmission environment? Yes * Can the patient safely return to the preadmission environment? Yes * Has this patient been hospitalized within the prior 30 days at any hospital? Yes Coverage Notice Reviewer: [id number] - Elie Broderick Notice Issued Date-Time: 02/10/2019 9:10 Notice Type: IM Discharge Notice Notice Delivered To: Patient Relationship to Patient: Manager Government Name: Delivery Method: HAND - Hand Delivered Lakisha Days: Prior Verbal Notification: Recipient Understood Notice: Yes Recipient Signature: Med Rec Note Co-signed by Attending: Coverage Notice Comment: PATIENT REPORTS INABILITY TO SIGN ANYTHING RIGHT NOW Last DP export: 02/12/19 9:34 a Patient Name: MARC CHADWICK Page [id number] at 0801 All edits/amendments must be made on the electronic document DICTATION DATE: 02/14/19799 REROLLING MACHINE OPERATOR: JANN 02/14/19799 RPT#: [id number] DC DATE:02/12/19 STATUS: DIS IN [facility] [address] [place] [address] END OF REPORT
== END 2019-02-12 12:57 | disposition home health service (06) | DRG 299 ==
LOC: D.ER 07:01 → D.M2 09:28
PROVIDERS: Family Medicine; Internal Medicine Nephrology; ADMIT Internal Medicine Nephrology; ATTEND Internal Medicine Nephrology
PROC: 5A1D70Z Performance of Urinary Filtration, Intermittent, Less than 6 Hours Per Day (ICD-10-PCS; principal; 2019-02-07)
DX: E11.51 Type 2 diabetes mellitus with diabetic peripheral angiopathy without gangrene (principal); N18.6 End stage renal disease; I12.0 Hypertensive chronic kidney disease with stage 5 chronic kidney disease or end stage renal disease; I70.222 Atherosclerosis of native arteries of extremities with rest pain, left leg; E11.22 Type 2 diabetes mellitus with diabetic chronic kidney disease; Z99.2 Dependence on renal dialysis; E78.5 Hyperlipidemia, unspecified; I25.10 Atherosclerotic heart disease of native coronary artery without angina pectoris; F03.90 Unspecified dementia, unspecified severity, without behavioral disturbance, psychotic disturbance, mood disturbance, and anxiety; Z86.73 Personal history of transient ischemic attack (TIA), and cerebral infarction without residual deficits

== ENCOUNTER 2019-03-08 16:21 | Emergency (ER) | payer MEDICARE, OTHER ==
[~2019-03-08] VITALS: Ht 165.1 cm; Wt 61.4 kg
[2019-03-08 16:49] VITALS: BP 138/67; Ht 165.1 cm; Wt 61.4 kg
== END 2019-03-08 19:57 | disposition home or self-care (01) ==
LOC: D.ER 16:21
DX: E11.51 Type 2 diabetes mellitus with diabetic peripheral angiopathy without gangrene (principal); E11.22 Type 2 diabetes mellitus with diabetic chronic kidney disease; I12.0 Hypertensive chronic kidney disease with stage 5 chronic kidney disease or end stage renal disease; N18.6 End stage renal disease; E78.5 Hyperlipidemia, unspecified; I25.10 Atherosclerotic heart disease of native coronary artery without angina pectoris

== ENCOUNTER 2019-07-27 17:45 | Emergency (ER) | payer OTHER ==
[~2019-07-27] VITALS: Ht 165.1 cm; Wt 72.7 kg
[2019-07-27 17:49] VITALS: Ht 165.1 cm; Wt 72.7 kg
[2019-07-27] MEDS ORDERED: APAP325 MG PO (17:53)
[2019-07-27] MEDS ORDERED: LIPITOR10 MG PO (17:53)
[2019-07-27] MEDS ORDERED: COLACE100 MG PO (17:54)
[2019-07-27] MEDS ORDERED: GABAPENTIN100 MG PO (17:54)
[2019-07-27] MEDS ORDERED: METOPROLOL TART50 MG PO (17:55)
[2019-07-27] MEDS ORDERED: LISINOPRIL5 MG PO (17:55)
[2019-07-27] MEDS ORDERED: LIDODERM 5 %1 PATCH TRANSDERM (17:55)
[2019-07-27] MEDS ORDERED: HYDROCODON-ACE1 EA10 PO (17:56)
[2019-07-27] MEDS ORDERED: PLAVIX75 MG PO (17:56)
[2019-07-27] MEDS ORDERED: MIRALAX17 GM PO (17:56)
[2019-07-27] MEDS ORDERED: SENNA LAXATIVE8.6 MG PO (17:57)
[2019-07-27] MEDS ORDERED: RENAGEL800 MG PO (17:58)
[2019-07-27] MEDS ORDERED: TRAZODONE HCL150 MG PO (17:58)
[2019-07-27 18:26] LABS: BASOPHILS 0.2 % (0-2); EOSINOPHILS 4.5 % (0-7); HEMOGLOBIN 10.3 g/dL (13.5-17.5); LYMPHOCYTES 11.8 % (15-50); MCH 29.7 pg (26.0-34.0); MCHC 29.4 g/dL (31.0-37.0); MCV 100.9 fL (80.0-100.0); MEAN PLATELET VOLUME 9.6 fL (7.4-10.4); MONOCYTES 14.5 % (2-11); PLATELET COUNT 168 10x3/uL (130-400); RBC 3.47 10x6/uL (4.20-6.10); RDW 16.7 % (11.5-14.5); WBC 6.3 10x3/uL (4.8-10.8)
[2019-07-27 18:43] LABS: ANION GAP 11.2 mmol/L (8-16); CALCIUM 9.1 mg/dL (8.5-10.1); CARBON DIOXIDE 30.2 mmol/L (21.0-32.0); CREATININE - SERUM 3.6 mg/dL (0.6-1.3); POTASSIUM - SERUM 4.4 mmol/L (3.5-5.1)
[2019-07-27 18:48] LABS: ALBUMIN 3.2 g/dL (3.4-5.0); BILIRUBIN - TOTAL 0.44 mg/dL (0.2-1.3); PROTEIN - SERUM 7.6 g/dL (6.4-8.2)
[2019-07-27 22:54] VITALS: BP 126/60
== END 2019-07-27 22:55 ==
LOC: D.ER 17:45
PROVIDERS: Emergency Medicine
DX: M79.671 Pain in right foot (principal); S90.811A Abrasion, right foot, initial encounter; X58.XXXA Exposure to other specified factors, initial encounter; E11.9 Type 2 diabetes mellitus without complications; I12.9 Hypertensive chronic kidney disease with stage 1 through stage 4 chronic kidney disease, or unspecified chronic kidney disease; E11.22 Type 2 diabetes mellitus with diabetic chronic kidney disease; N18.4 Chronic kidney disease, stage 4 (severe); Z99.2 Dependence on renal dialysis; E78.5 Hyperlipidemia, unspecified

== ENCOUNTER 2019-07-29 11:43 | Emergency (ER) | payer OTHER ==
[~2019-07-29] VITALS: Ht 165.1 cm; Wt 84.1 kg
[~2019-07-29 11:43] MED LIST changes: +APAP325 MG PO; +COLACE100 MG PO; +GABAPENTIN100 MG PO; +HYDROCODON-ACE1 EA10 PO; +LIDODERM 5 %1 PATCH TRANSDERM; +LISINOPRIL5 MG PO; +METOPROLOL TART50 MG PO; +MIRALAX17 GM PO; +RENAGEL800 MG PO; +SENNA LAXATIVE8.6 MG PO; +TRAZODONE HCL150 MG PO
[2019-07-29 11:45] VITALS: Ht 165.1 cm; Wt 84.1 kg
[2019-07-29 12:56] LABS: BASOPHILS 0.2 % (0-2); EOSINOPHILS 5.6 % (0-7); HEMATOCRIT 34.3 % (42.0-54.0); HEMOGLOBIN 10.1 g/dL (13.5-17.5); IMMATURE GRANULOCYTES 0.2 % (0-5); LYMPHOCYTES 22.7 % (15-50); MCH 29.6 pg (26.0-34.0); MCHC 29.4 g/dL (31.0-37.0); MCV 100.6 fL (80.0-100.0); MONOCYTES 9.3 % (2-11); PLATELET COUNT 165 10x3/uL (130-400); RBC 3.41 10x6/uL (4.20-6.10); RDW 16.9 % (11.5-14.5); WBC 5.2 10x3/uL (4.8-10.8)
[2019-07-29 13:01] LABS: ANION GAP 15.8 mmol/L (8-16); CALCIUM 9.3 mg/dL (8.5-10.1); CARBON DIOXIDE 28.5 mmol/L (21.0-32.0)
[2019-07-29 13:06] LABS: CREATININE - SERUM 6.6 mg/dL (0.6-1.3); POTASSIUM - SERUM 5.3 mmol/L (3.5-5.1)
[2019-07-29 13:09] LABS: MAGNESIUM - SERUM 2.2 mg/dL (1.8-2.4)
[2019-07-29 13:10] LABS: ALBUMIN 3.4 g/dL (3.4-5.0); BILIRUBIN - TOTAL 0.39 mg/dL (0.2-1.3); PROTEIN - SERUM 7.6 g/dL (6.4-8.2)
[2019-07-29 13:40] VITALS: BP 132/68
== END 2019-07-29 16:13 | disposition home or self-care (01) ==
LOC: D.ER 11:43
PROVIDERS: Emergency Medicine
DX: R06.89 Other abnormalities of breathing (principal); I13.11 Hypertensive heart and chronic kidney disease without heart failure, with stage 5 chronic kidney disease, or end stage renal disease; E11.22 Type 2 diabetes mellitus with diabetic chronic kidney disease; N18.6 End stage renal disease; Z99.2 Dependence on renal dialysis; E78.5 Hyperlipidemia, unspecified; K21.9 Gastro-esophageal reflux disease without esophagitis

== ENCOUNTER 2019-08-03 00:07 | Inpatient (IN) | payer OTHER ==
[~2019-08-03] VITALS: Ht 165.1 cm; Wt 67.0 kg
--- NOTE | ~2019-08-03 | OP ---
PATIENT NAME: MARC CHADWICK MEDICAL RECORD: [id number] :[birth year] LOCATION:D.M2 D.2117 ADMISSION DATE:08/03/19 SURGEON: YULY ACEVES MD DATE OF OPERATION: 08/04/2019 PROCEDURES: 1. PTCA and stent of LAD. 2. PTCA and stent of RCA. 3. Left heart catheterization. 4. Selective coronary angiography. 5. Left ventriculogram. 6. REED angiography. INDICATIONS: Angina and coronary artery disease. PROCEDURE IN DETAIL: After informed consent was obtained and after detailed explanation of risks, benefits as well as alternative therapies, the patient elected to proceed with angiogram and angioplasty. The right femoral area was prepped and draped in normal sterile fashion. Right femoral artery was cannulated via modified Seldinger technique with placement of 6-Khmer sheath. All catheters exchanged through this sheath. FINDINGS: The left ventriculogram was performed in standard 30-degree RODRIGUEZ view reveals global hypokinesis, ejection fraction 35%. SELECTIVE CORONARY ANGIOGRAPHY: 1. Left main is with no significant angiographic disease. 2. Left anterior descending has 90% in-stent restenosis proximally. This leads into a non-grafted diagonal. The LAD is then totally occluded. 3. REED to the distal LAD is widely patent. Distal LAD is widely patent. 4. The left circumflex is totally occluded in the mid vessel. 5. The right coronary has a 95% stenosis at the ostium. PTCA AND STENT OF THE LAD AND RCA: We stented this with a 2.5 x 18-mm Gaurang, took the stent balloon up to 23 atmospheres. There was still significant residual stenosis. We put 3.0 high pressure balloon and took this up to 25 atmospheres. There was still 40% residual stenosis with heavy calcification. We then turned our attention to the RCA. This was addressed with a 2.5 x 8-mm Gaurang stent, the 3.0 high pressure balloon taken to 23 atmospheres. Result was 0% residual stenosis. OVERALL IMPRESSION: Successful PTCA and stent of the RCA from 95% initial stenosis at the ostium to 0% residual. Successful PTCA and stent of the LAD leading into a non-grafted diagonal going from 90% initial stenosis to 40% residual stenosis. TRANSINT:[id number] Voice Confirmation ID: [id number] DOCUMENT ID: [id number] OPERATIVE REPORT [id number] MARC CHADWICK JEFFREY MD CC: [id number] DICTATION DATE: 08/04/19 1008 SALES REPRESENTATIVE GIRLS' APPAREL: 08/04/19 1040 ADM IN [facility] [address] [id number]
--- NOTE | ~2019-08-03 | DS ---
PATIENT:MARC LEWIS :[birth year] MEDICAL RECORD: [id number] DISCHARGE SUMMARY ADMISSION DATE: 08/03/19 DISCHARGE DATE: 08/04/19 DATE OF DISCHARGE: 08/04/2019 DISCHARGE DIAGNOSES: 1. Unstable angina. 2. Coronary artery disease. 3. PTCA and stent of LAD and RCA this admission. HOSPITAL COURSE: Mr. Lewis presents with unstable anginal symptomatology, found to have significant disease of LAD leading into a non-grafted diagonal and [place] RCA. Underwent successful PTCA and stent of both territories. Discharged home with no changes in medications. He is already on aspirin and Plavix. He will follow up with [facility] in 1 month. TRANSINT:[id number] Voice Confirmation ID: [id number] DOCUMENT ID: [id number] YULY ACEVES MD CC: [id number] DICTATION DATE: 08/04/19 1049 CARD CLEANER: 08/05/19 0639 DIS IN 08/04/19 [facility] [address] [place] [address]
--- NOTE | ~2019-08-03 | EC ---
PATIENT:MARC CHADWICK DATE OF SERVICE: 08/03/19 SEX: M MEDICAL RECORD: [id number] DATE OF : [birth year] LOCATION:D.M2 D.211 AGE OF PATIENT: 74 ADMISSION DATE: 08/03/19 REFERRING PHYSICIAN: INTERPRETING PHYSICIAN: YULY VIDAL MD ECHOCARDIOGRAM REPORT ECHO CHARGES 4 ECHO COMPLETE Date: 08/03/19 CLINICAL DIAGNOSIS: UNSTABLE ANGINA HX PACER ECHOCARDIOGRAPHIC MEASUREMENTS (adult normal given) AC root (d.<3.7cm) 33.9 cm LV Septum d (<1.2 cm> 1.2 cm Valve Excursion 1.3 cm LV Septum (systole) 1.4 cm Left Atria (s.<4.0cm> 4.4 cm LVPW d(<1.2cm) 1.3 cm RV (d.<2.3cm) 3.5 cm LVPW (sytole) 1.5 cm LV diastole(<5.6CM) 5.6 cm MV E-F(>70mm/sec) cm LV systole 4.3 cm LVOT Diameter 1.8 cm MV exc.(>10mm) 1.5 cm Est.ejection fraction (50-75%) % DOPPLER: LVIT cm/sec A 77.0 cm/sec E 103.0 cm/sec LA cm/sec RVSP 46 mmHg LVOT 65 cm/sec AOP1/2T m/s Asc. Ao 153 cm/sec RVOT 81 cm/sec RA cm/sec PA 103 cm/sec AV Gradient Peak 9.31 mmHg AV Mean 6.24 mmHg AV Area 1.3 cm MV Gradient Peak 6.63 mmHg MV Mean 2.25 mmHg MV Area cm COMMENTS: Filler Mixer: 2 PENG SAM Junior Programmer: 1 Dr. Vidal TAPE# PACS Pericardial Effusion N DATE OF SERVICE: FINDINGS: 1. Left ventricular chamber size is within normal limits. Left ventricular systolic function is normal at 55%. 2. Left atrium is enlarged at 4.4 cm. Right atrium and right ventricular chamber sizes are as well mildly dilated. 3. Valvular structures have normal structure and motion. 4. Doppler interrogation reveals mild mitral regurgitation, moderate tricuspid regurgitation, no other valvular insufficiency or stenosis. Pulmonary systolic ECHOCARDIOGRAM REPORT [id number] MARC CHADWICK pressure is estimated at 46 mmHg. 5. No evidence of pericardial effusion or left ventricular thrombus. TRANSINT:[id number] Voice Confirmation ID: [id number] DOCUMENT ID: [id number] YULY VIDAL MD CC: [id number] DICTATION DATE: 08/04/19925 MAKING MACHINE OPERATOR: 08/04/19937 ADM IN [facility] [address] [id number]
--- NOTE | ~2019-08-03 | HEMODYNAMI ---
PATIENT:MARC CHADWICK MEDICAL RECORD: [id number] : 49 LOC[facility] [id number] ADMISSION DATE: 08/03/19 Generatedon:08/04/201910:15 Patient name: MARC CHADWICK Patient #: [id number] SSN: [id number] : 1945 Date of study: 08/04/2019 Page: Of Hemodynamic Procedure Report Patient Data Patient Demographics Procedure consent was obtained First Name: MARC Gender: Male Last Name: NETTA : 1945 Middle Initial: S Age: 74 year(s) Patient #: [id number] Race: SSN: [id number] Additional ID: [id number] Contact details [address]: [address] [place] [address] State: [place] City: [place] Zip code: [address] Past Medical History Allergies Allergen Reaction Date Comments Reported Other 10/01/2014 METHADONE allergy Other 04/28/2016 Methadone allergy Other 09/22/2016 Methadone allergy Other 02/23/2018 methadone allergy Other 01/14/2019 methadone allergy Other 02/03/2019 methadone allergy Other 08/04/2019 methadone,amiltryptiline allergy Admission Admission Data Admission Date: 08/03/2019 Admission Time: 17:42 Room #: [facility] Insurance Payor: [facility] Height (in.): 64.96 BSA: 1.74 (m2) Height (cm.): 165 BMI: 24.61 (kg/m2) Weight (lbs.): 147.71 Weight (kg.): 67 Current Diagnosis Diagnosis Description Unstable angina Lab Results Lab Result Date: 08/04/2019 Lab Result Time: 0:00 Biochemistry Name Units Result Min Max Creatinine mg/dl 6.7 --(----)-* 0.6 1.3 Troponin l ng/ml 0.35 --(----)-* 0 0.06 CBC Name Units Result Min Max Hematocrit % 31.1 *-(----)-- 42 54 Hemoglobin g/dl 9.3 *-(----)-- 13.5 17.5 Procedure Procedure Types Cath Procedure Diagnostic Procedure [facility] w/Coronaries w/Grafts Sedation Charges Moderate Sedation up to 15 minutes PCI Procedure Coronary Stent Coronary Stent Initial x2 Hemochron ACT Test Procedure Description Procedure Date Procedure Date: 08/04/2019 Procedure Start Time: 9:43 Procedure End Time: 10:10 Procedure Staff Name Function Osvaldo Vidal MD Performing Physician Ashley Delgadillo RN Monitor Patti Teran RT Scrub Jose M Alex RN Nurse Erika Orourke RN Nurse Procedure Data Cath Procedure Fluoroscopy Diagnostic fluoroscopy Total fluoroscopy Time: 6.6 time: 6.6 min min Diagnostic fluoroscopy Total fluoroscopy dose: 381 dose: 381 mGy mGy Contrast Material Contrast Material Type Amount (ml) Isovue 300 93 Entry Location Entry Primary Successful Side Size Upsize Upsize Entry Closure Succes sful Closure Location (Fr) 1 (Fr) 2 (Fr) Remarks Device Remarks Femoral Right 5 Fr 6 Fr Exoseal artery Short Estimated blood loss: 10 ml Diagnostic catheters Device Type Used For End Catheter Placement MULTIPACK Pigtail 5 Fr Procedure catheter MULTIPACK 3DRC 5Fr Procedure catheter MULTIPACK JL 4.0 5Fr Procedure catheter Procedure Complications No complications Procedure Medications Medication Administration Route Dosage Oxygen NC 3 l/min Lidocaine 2% added to field 20 Heparin Flush Bag added to field 2 bags (1000units/500ml NS) 0.9% NaCl I.V. 10 ml/hr Versed I.V. 1 mg Fentanyl I.V. 25 mcg Heparin Bolus I.V. 4000 units Hemodynamics Rest BSA: 1.74 (m2) HGB: 9.3 (g/dl) O2 Consumption: Estimated: 197.72 (ml/min) O2 Con sumption indexed: Estimated:113.63 (ml/min/m) Heart Rate: 65 (bpm) Snapshots Pre Cath Intra NCS Post Cath Vital Signs Time Heart Resp SPO2 etCO2 NIBP (mmHg) Rhythm Pain Sedation Rate (ipm) (%) (mmHg) Status Level (bpm) 9:33:43 63 37 0 Measuring NSR (Missing) 10(A) 9:34:53 60 22 22.6 Disturbed NSR (Missing) 10(A) 9:39:33 62 28 99 29.4 156/40(115) NSR (Missing) 10(A) 9:44:01 60 14 99 21 150/60(118) NSR (Missing) 10(A) 9:48:23 60 13 97 10.5 136/74(102) NSR (Missing) 9(A) 9:52:44 60 21 99 21.8 128/61(107) NSR (Missing) 9(A) 9:56:55 60 17 98 23.3 142/72(119) NSR (Missing) 9(A) 10:01:18 60 15 98 28.6 128/61(107) NSR (Missing) 9(A) 10:05:25 63 17 98 25.6 130/69(114) NSR (Missing) 9(A) 10:09:46 62 17 95 24.1 141/68(115) NSR (Missing) 10(A) Medications Time Medication Route Dose Verified Delivered Reason Notes Effectiveness by by 9:42:15 Oxygen NC 3 Buffie Buffie for low 02 sats l/min Abi Alex RN 9:42:27 Lidocaine 2% added 20ml Osvaldo Buffie for local to vial Young Alex RN anesthetic field 9:43:02 Heparin Flush added 2 Osvaldo Buffie used for Bag to bags Young Alex RN procedure (1000units/500ml field NS) 9:43:14 0.9% NaCl I.V. 10 Osvaldo Buffie used for ml/hr Young Alex RN procedure 9:43:31 Versed I.V. 1 mg Osvaldo Santamariaie for sedation Young Alex RN 9:43:39 Fentanyl I.V. 25 Osvaldo Buffie for sedation mcg Young Alex RN 9:50:33 Heparin Bolus I.V. 4000 Osvaldo Sanatmariaie for verifie d units Young Alex RN anticoagulation with dr vidal Procedure Log Time Note 9:15:14 Informed consent obtained and on chart 9:15:32 Ashley Delgadillo RN sent for patient. Start room use. 9:15:38 Procedure Status Urgent Heart Cath (IP). 9:15:40 Time tracking: Regular hours (M-F 7:00 - 5:00) 9:15:43 Plan of Care:Hemodynamics will remain stable., Cardiac rhythm will remain stable., Comfort level will be maintained., Respiratory function will remain adequate., Patient/ family verbilizes understanding of procedure., Procedure tolerated without complication., Recovers from procedure without complications.. 9:15:46 H&P Date Dictated: 08/04/2019 New H&P dictated by physician.. 9:23:52 Patient received from Med II to CCL 1 Alert and oriented. Tansferred to table in Supine position. 9:23:53 Warm blankets applied, and hao hugger turned on for patient comfort. 9:23:53 Correct patient and procedure confirmed by team. 9:23:54 ECG and BP/O2 sat monitors applied to patient. 9:31:53 Vital chart was started 9:36:52 Insurance Payor : [facility] 9:37:06 Patient Height : 64.96 inches 9:37:14 Patient Weight : 147.71 lbs 9:37:18 Current Diagnosis : Unstable angina 9:37:27 ACC Patient presents with Unstable Angina CCS Anginal Class 3--Marked limitation of physical activity, angina occurs with ordinary activity.. 9:37:35 Baseline sample Acquired. 9:37:39 Rhythm: sinus rhythm 9:37:40 Full Disclosure recording started 9:37:42 Pre-procedure instructions explained to patient. 9:37:42 Pre-procedure instructions explained to patient. 9:37:43 Pre-op teaching completed and patient verbalized understanding. 9:37:45 Family unavailable. 9:37:47 Patient NPO since Midnight. 9:38:05 Patient allergic to Other allergymethadone,amiltryptiline 9:38:08 Is the patient allergic to Iodine/contrast media? No. 9:38:09 Was the patient premedicated? N/A 9:38:47 Is patient on blood thinner?Yes 9:38:55 ACC The patient was administered the following blood thiners within the last 24 hours: ACCPlavix 9:39:06 Patient diabetic? Yes. 9:39:10 If diabetic: On Metformin? No 9:39:20 Previous problem with sedation/anesthesia? No ? 9:39:21 Snore? Yes 9:39:22 Sleep apnea? No 9:39:24 Deviated septum? No 9:39:25 Opens mouth fully? Yes 9:39:27 Sticks out tongue? Yes 9:39:29 Airway obstruction? No ? 9:39:36 Dentures? No ? 9:39:43 Pre procedure: right dorsailis pedis pulse Doppler 9:39:47 Patient pain scale 0/10 ?. 9:39:52 IV patent on arrival in left forearm with 0.9% NaCl at [facility]. 9:40:03 Stress Test: no; N/A ? 9:41:58 Risk of Mortality: 0.6 9:42:01 Risk of blood transfusion: 16.0 9:42:03 Risk of DAQUAN: 15.7 9:42:15 Oxygen 3 l/min NC was administered by Jose M Alex RN; for low 02 sats; Verbal order read back and verified. 9:42:22 Lab Result : Creatinine 6.7 mg/dl 9:42:22 Lab Result : Troponin l 0.35 ng/ml 9:42:22 Lab Result : Hemoglobin 9.3 g/dl 9:42:22 Lab Result : Hematocrit 31.1 % 9:42:27 Lidocaine 2% 20ml vial added to field was administered by Jose M Alex RN; for local anesthetic; Verbal order read back and verified. 9:42:27 Right groin area was prepped with chlora-prep and draped in sterile fashion 9:42:28 Alarms reviewed by R. N. 9:42:29 Sharps counted by scrub and verified by R.N. 9:42:31 --------ALL STOP TIME OUT------ 9:42:31 Final Timeout: patient, procedure, and site verified with staff and physician. All members of the team are in agreement. 9:42:34 Right groin site verified by team. 9:42:37 Fire Safety Assessment: A--An alcohol-based skin anteseptic being used preoperatively., C--Open oxygen or nitrous oxide is being used., D--An ESU, laser, or fiber-optic light is being used. 9:42:48 Physical assessment completed. ASA score P 4 - A patient with severe systemic disease that is a constant threat to life as per Osvaldo Vidal MD. 9:42:51 5) <15 or on dialysis Very severe, or end stage kidney failure. 9:42:55 Maximum allowable contrast dose (3.7 X eGFR X 0.75)22 ml. 9:42:59 Sedation plan: IV Moderate Sedation Medication:Versed, Fentanyl 9:43:02 Heparin Flush Bag (1000units/500ml NS) 2 bags added to field was administered by Jose M Alex RN; used for procedure; Verbal order read back and verified. 9:43:02 Use device set Femoral Dx 9:43:03 ACIST Syringe (47201) opened to sterile field. 9:43:04 Bag Decanter (2002S) opened to sterile field. 9:43:05 Medline Cath Pack ([id number]) opened to sterile field. 9:43:06 ACIST Hand Control (98669) opened to sterile field. 9:43:07 ACIST Manifold (72712) opened to sterile field. 9:43:07 DIAGNOSTIC Multipack 5Fr catheter set (MU7427) opened to sterile field. 9:43:09 SHEATH 5FR Ewing (LSS449) opened to sterile field. 9:43:10 EMERALD Guide Wire (051-222) opened to sterile field. 9:43:14 Procedure started. 9:43:14 0.9% NaCl 10 ml/hr I.V. was administered by Jose M Alex RN; used for procedure; Verbal order read back and verified. 9:43:18 Local anesthetic to right femoral artery with Lidocaine 2% by Osvaldo Vidal MD.INITIAL ACCESS ONLY 9:43:31 Versed 1 mg I.V. was administered by Jose M Alex RN; for sedation; Verbal order read back and verified. 9:43:39 Fentanyl 25 mcg I.V. was administered by Jose M Alex RN; for sedation; Verbal order read back and verified. 9:45:17 A 5 Fr sheath was inserted into the Right Femoral artery 9:46:48 A MULTIPACK Pigtail 5 Fr catheter was advanced over the wire and used for Procedure. 9:47:01 LV gram done using RODRIGUEZ 9:47:08 EF : 35 % 9:47:13 Injector settings: Ml/sec: 5, Volume: 15, 9:47:17 Catheter removed. 9:47:22 A MULTIPACK 3DRC 5Fr catheter was advanced over the wire and used for Procedure. 9:47:41 REED to LAD angiography performed. 9:47:46 RCA angiography performed. 9:48:17 Catheter removed. 9:48:24 A MULTIPACK JL 4.0 5Fr catheter was advanced over the wire and used for Procedure. 9:48:47 LCA angiography performed. 9:49:25 Catheter removed. 9:49:26 Proceeding to intervention. 9:49:30 INFLATOR Merit BasixCompak (LQ4689) opened to sterile field. 9:49:30 CHOICE PT Extra Support 182cm wire ([id number]) opened to sterile field. 9:49:34 SHEATH 6FR Ewing (TJO602) opened to sterile field. 9:49:34 GUIDE 6FR 3DRC SH catheter ([id number]) opened to sterile field. 9:50:13 GUIDE 6FR XBLAD 3.5 catheter ([id number]) opened to sterile field. 9:50:30 Sheath upsized to a 6 Fr Short. 9:50:33 Heparin Bolus 4000 units I.V. was administered by Jose M Alex RN; for anticoagulation; verified with dr vidal Verbal order read back and verified. 9:51:25 ACC Pre-intervention DWAYNE Flow is 2. 9:51:34 Pre PCI Site: [place] LAD has 90% stenosis. 9:51:48 6 Fr XBLAD 3.5 guide catheter was inserted over the wire 9:52:00 CHOICE PT ES 182 wire advanced. 9:52:46 Wire advanced across lesion. 9:53:13 Place stent Inflation Number: 1 A ALFREDO RX 2.5 x 18 stent ([id number]) was prepped and advanced across the Mid LAD . The stent was deployed at 15 BECCA for 0:00 (min:sec) . 9:53:28 Inflation number: 2 The stent balloon was then re-inflated across the Mid LAD to 21 BECCA for 0:00 (min:sec) . 9:53:47 Inflation number: 3 The stent balloon was then re-inflated across the Mid LAD to 23 BECCA for 0:00 (min:sec) . 9:54:43 Stent catheter was removed intact over wire. 9:55:14 Inflate balloon Inflation number: 1 A NC EUPHORA 3.0 x 15 balloon ([id number]) was prepped and advanced across the Mid LAD1 , then inflated to 23 BECCA for 0:00 (min:sec) . 9:55:42 Inflation number: 2 The NC EUPHORA 3.0 x 15 balloon ([id number]) was reinflated across the Mid LAD1 , to 23 BECCA for 0:00 (min:sec) . 9:55:53 Balloon removed over the wire. 9:55:54 Wire removed. 9:55:55 Guide catheter removed. 9:56:11 ACC Post-intervention DWAYNE Flow is 2. 9:56:36 6 Fr 3DRC SH guide catheter was inserted over the wire 9:57:53 CHOICE PT EX 182 wire advanced. 9:57:55 Wire advanced across lesion. 9:58:51 Pre PCI Site: [place] RCA has 95% stenosis. 9:59:00 ACC Pre-intervention DWAYNE Flow is 3. 9:59:29 Place stent Inflation Number: 1 A ALFREDO RX 2.5 x 08 stent ([id number]) was prepped and advanced across the Prox RCA . The stent was deployed at 23 BECCA for 0:00 (min:sec) . 9:59:50 Stent catheter was removed intact over wire. 10:01:11 Inflate balloon Inflation number: 1 A NC EUPHORA 3.0 x 15 balloon ([id number]) was prepped and advanced across the Prox RCA1 , then inflated to 0 BECCA for 0:00 (min:sec) . 10:01:20 ACC Post-intervention DWAYNE Flow is 3. 10:01:24 Balloon removed over the wire. 10:01:24 Wire removed. 10:01:25 Guide catheter removed. 10:02:04 EXOSEAL 6Fr (EX600) opened to sterile field. 10:02:23 Sheath removed intact; hemostasis achieved with Exoseal to the Right Femoral artery. 10:04:18 Procedure ended.(Physican Out) 10:04:40 Fluoroscopy time 06.60 minutes. 10:04:44 Fluoroscopy dose: 381 mGy 10:04:44 Flurop Dose total: 381 10:04:50 Dose Area Product 30113 mGy/cm. 10:05:00 Contrast amount:Isovue 300 93ml. 10:05:03 Maximum allowable dose exceeded? Yes. 10:05:04 Sharps counted by scrub and verified by R.N. 10:05:06 Insertion/operative site no bleeding no hematoma. 10:05:11 Post-op/insertion site Right Femoral artery dressed using a 4 x 4 and Tegaderm. 10:05:18 Post right femoral artery:stable, soft, clean and dry 10:08:54 Femstop placed over the right femoral artery at 158 mmHg. Hemostasis achieved. 10:08:57 Post Procedure Pulses reassessed and unchanged 10:09:00 Post procedure: right dorsailis pedis pulse Doppler. 10:09:05 Post-procedure physical assessment completed. ASA score P 4 - A patient with severe systemic disease that is a constant threat to life as per Osvaldo Vidal MD. 10:09:07 Post procedure rhythm: unchanged. 10:09:10 Estimated blood loss: 10 ml 10:09:12 Post procedure instruction explained to patient.Patient verbalizes understanding. 10:09:13 Patient needs reinforcement of post procedure teaching. 10:10:05 Procedure type changed to Cath procedure, Diagnostic procedure, LHC, LHC w/Coronaries w/Grafts, Sedation Charges, Moderate Sedation up to 15 minutes, PCI procedure, Coronary Stent, Coronary Stent Initial x2, Hemochron ACT Test 10:10:10 ACT drawn and resulted at 227 seconds. (normal therapeutic range 180-240 seconds). 10:10:23 Procedure and supply charges have been captured, reviewed, submitted and are correct. 10:10:27 Procedure Complication : No complications 10:10:29 Vital chart was stopped 10:10:31 [facility] Findings: MVD- PCI performed (see procedure note) 10:10:32 Operative report dictated upon procedure completion. 10:10:32 See physician's report for complete and final results. 10:10:34 Report given to [facility] II. 10:10:37 Patient transfered to Med II with Bed. 10:10:40 Procedure ended. 10:10:40 Full Disclosure recording stopped 10:10:47 ACC-PCI Only Patient was given prescriptions, or instructed by Osvaldo Vidal MD to start/continue the following medications upon discharge: Plavix 10:10:49 End room use (Document Last) 10:13:50 End room use (Document Last) 10:14:17 End room use (Document Last) Intervention Summary Intervention Notes Time ActionType Lesion and Equipment Used Action# Pressure Duration Attributes 9:53:13 Place stent Mid LAD ALFREDO RX 2.5 x 1 15 00:00 18 stent ([id number]) 9:53:28 Reinflate Mid LAD ALFREDO RX 2.5 x 2 21 00:00 stent 18 stent balloon ([id number]) 9:53:47 Reinflate Mid LAD ALFREDO RX 2.5 x 3 23 00:00 stent 18 stent balloon ([id number]) 9:55:14 Inflate Mid LAD1 NC EUPHORA 3.0 1 23 00:00 balloon x 15 balloon ([id number]) 9:55:42 Reinflate Mid LAD1 NC EUPHORA 3.0 2 23 00:00 balloon x 15 balloon ([id number]) 9:59:29 Place stent Prox RCA ALFREDO RX 2.5 x 1 23 00:00 08 stent ([id number]) 10:01:11 Inflate Prox RCA1 NC EUPHORA 3.0 1 0 00:00 balloon x 15 balloon ([id number]) Device Usage Item Name Manufacture Quantity Catalog Number Hospital Part Current M inimal Lot# / Charge Number Stock Stock Serial# Code ACIST Syringe Acist 1 16592 387958 536925 950841 2 0 (38870) Medical Systems Inc Bag Decanter Microtek 1 469947 91192 169807 5 (2001S) Medical Inc. Medline Cath Medline 1 [id number] 078077 59904 176482 5 Pack ([id number]) ACIST Hand Acist 1 35550 220608 045572 534370 5 Control Medical (28905) Systems Inc ACIST Manifold Acist 1 70654 120852 921492 455519 5 (30023) Medical Systems Inc DIAGNOSTIC Cardinal 1 YT6054 304092 86457 787347 3 0 Multipack 5Fr Health catheter set (QF3376) SHEATH 5FR Terumo 1 JCA166 429021 153785 031056 5 Ewing (JSP411) EMERALD Guide Cardinal 1 502455 306039 814383 476924 5 Wire (502-682) Health MULTIPACK Cardinal 1 601465 5 Pigtail 5 Fr Health catheter MULTIPACK 3DRC Cardinal 1 605867 5 5Fr catheter Health MULTIPACK JL Cardinal 1 978583 5 4.0 5Fr Health catheter INFLATOR Merit Merit 1 NO1093 142596 718161 921018 1 5 StandDesk (ZJ3728) CHOICE PT Sherborn 1 [id number] 583449 054196 537045 5 Extra Support Scientific 182cm wire ([id number]) SHEATH 6FR Terumo 1 BCW364 338036 061385 015796 4 0 Ewing (USN250) GUIDE 6FR 3DRC Medtronic 1 [id number] 673593 956381 449982 1 SH catheter ([id number]) GUIDE 6FR Cardinal 1 [id number] 126550 542008 881850 1 0 XBLAD 3.5 Health catheter (80874039) ALFREDO RX 2.5 x Medtronic 1 [id number] 330947 8226112 843228 5 [id number] 18 stent ([id number]) NC EUPHORA 3.0 Medtronic 1 [id number] 108292 999903 780311 1 [id number] x 15 balloon ([id number]) ALFREDO RX 2.5 x Medtronic 1 [id number] 294376 7664686 232493 5 [id number] 08 stent ([id number]) EXOSEAL 6Fr Cardinal 1 EX600 113302 704828 075628 1 0 (EX600) Health Signature Audit [place] Stage Time Signature Unsigned Intra-Procedure 08/04/2019 Ashley Delgadillo 10:13:50 AM RN Intra-Procedure 08/04/2019 Erika 10:14:37 AM Sharad RN Intra-Procedure 08/04/2019 Osvaldo Vidal 10:15:12 AM [facility] [address] [place] [address]
[2019-08-03 00:39] LABS: HEMATOCRIT 32.4 % (42.0-54.0); HEMOGLOBIN 9.8 g/dL (13.5-17.5); LYMPHOCYTES 19.8 % (15-50); MCH 29.7 pg (26.0-34.0); MCHC 30.2 g/dL (31.0-37.0); MCV 98.2 fL (80.0-100.0); MEAN PLATELET VOLUME 9.3 fL (7.4-10.4); NEUTROPHILS 60.6 % (40-80); PLATELET COUNT 152 10x3/uL (130-400); RDW 15.8 % (11.5-14.5); WBC 5.3 10x3/uL (4.8-10.8)
[2019-08-03 00:48] LABS: APTT 31.5 SECONDS (22.8-39.4); INR 1.2 (0.85-1.17); PROTIME 15.1 SECONDS (11.6-15.0)
[2019-08-03 00:56] LABS: CALC OSMOLALITY 290 mosm/kg (275-300); CARBON DIOXIDE 31.3 mmol/L (21.0-32.0); CHLORIDE - SERUM 98 mmol/L (98-107); CREATININE - SERUM 7.1 mg/dL (0.6-1.3); GLUCOSE 150 mg/dL (74-106); POTASSIUM - SERUM 4.4 mmol/L (3.5-5.1); SODIUM 138 mmol/L (136-145); UREA NITROGEN 46 mg/dL (7-18); eGFR NON AFRICAN AMERICAN 8 mL/min (90-120)
[2019-08-03 01:01] VITALS: BP 107/68
[2019-08-03 01:13] LABS: ALBUMIN 3.1 g/dL (3.4-5.0); ALKALINE PHOSPHATASE 154 U/L (30-120); ALT (SGPT) 10 U/L (10-68); BILIRUBIN - TOTAL 0.38 mg/dL (0.2-1.3); CKMB 1.2 U/L (0.0-3.6); CREATINE KINASE 22 UL (21-232); PROTEIN - SERUM 7.1 g/dL (6.4-8.2); TROPONIN-I 0.033 ng/mL (0.000-0.060)
[2019-08-03 01:48] VITALS: BP 158/69; BMI 24.6
[2019-08-03] MEDS ORDERED: LIDODERM 5 %1 PATCH TRANSDERM (06:47)
[2019-08-03] MEDS ORDERED: NYSTATIN OINTME15 GM TOPICAL (06:49)
[2019-08-03 08:06] LABS: CKMB 1.2 U/L (0.0-3.6); CREATINE KINASE 29 UL (21-232); TROPONIN-I 0.034 ng/mL (0.000-0.060)
[2019-08-03 09:00] VITALS: BP 114/52
--- NOTE | 2019-08-03 09:37 | MORECARE ---
CASE MANAGEMENT DISCHARGE SUMMARY PATIENT: MARC CHADWICK UNIT: [id number] ADM DATE: 08/03/19 AGE: 74 : 47 SEX: M ROOM/BED: D.7 AUTHOR: RADHA MCGRATH PHYSICIAN: REFERRING PHYSICIAN: YULY ACEVES MD DATE OF SERVICE: 08/03/19 Discharge Plan Patient Name: MARC CHADWICK [facility] [facility] 1945 Planned Disposition: Shelter Facility Anticipated Discharge Date: Discharge Date: Expected LOS: 0 Initial Reviewer: [email or web address] Initial Review Date: 08/03/2019 Generated: 08/03/19 10:36 am External Providers External Provider: [facility] Next Contact Date: 08/03/2019 Service Request Date: Service Type: Resolution: Reviewer: Comments: Patient Name: MARC CHADWICK Page [id number] at 0937 All edits/amendments must be made on the electronic document DICTATION DATE: 08/03/19935 HAT IRONER: DM 08/03/19935 RPT#: [id number] DC DATE: STATUS: REG [facility] [address] [place] [address] END OF REPORT
--- NOTE | 2019-08-03 09:43 | MORECARE ---
CASE MANAGEMENT DISCHARGE SUMMARY PATIENT: MARC CHADWICK UNIT: [id number] ADM DATE: 08/03/19 AGE: 74 : 47 SEX: M ROOM/BED: D.[facility] AUTHOR: RADHA MCGRATH PHYSICIAN: REFERRING PHYSICIAN: YULY ACEVES MD DATE OF SERVICE: 08/03/19 Discharge Plan Patient Name: MARC CHADWICK Facility: [facility]:[place] : 1945 Planned Disposition: Jail Facility Anticipated Discharge Date: Discharge Date: Expected LOS: 0 Initial Reviewer: [email or web address] Initial Review Date: 08/03/2019 Generated: 08/03/19 10:43 am Comments DCP- Discharge Planning Updated by [email or web address]: Elie Broderick on 08/03/19 8:[address] Patient Name: MARC CHADWICK Admission Status: ER Accout number: [id number] Admission Date: 08-03-2019 : 1945 Admission Diagnosis: Attending: GURPREET ACEVES Current LOS: 1 Anticipated DC Date: Planned Disposition: Jail Facility Primary Insurance: [employer] ADMINISTRATION PLANNED EXTERNAL PROVIDER: [facility], MEDICARE REHAB BED Discharge Planning Comments: CM REVIEWED ADMISSION CHART, PT FROM THE [facility] SKILLED BED. CM FAXED UPDATE TO [facility] AT [phone]. FOR DISCHARGE TO THE [facility]] NURSING AND REHAB, FAX DISCHARGE INFORMATION TO [facility][1] AT [phone]; NURSE REPORT TO BE CALLED TO [facility][1] AT [phone]. [facility][1] TO ARRANGE VAN TRANSPORATION. Printed Circuit Boards Stripper Etcher: Elie Broderick Last DP export: 08/03/19 8:37 am Patient Name: MARC CHADWICK Page [phone] at 0943 All edits/amendments must be made on the electronic document DICTATION DATE: 08/03/19942 SHAREPOINT TRAINER: JANN 08/03/19942 RPT#: [id number] DC DATE: STATUS: [facility] [address] [place] [address] END OF REPORT
[2019-08-03 12:00] VITALS: BP 95/59
[2019-08-03 12:20] LABS: CKMB 1.3 U/L (0.0-3.6); CREATINE KINASE 21 UL (21-232); TROPONIN-I 0.023 ng/mL (0.000-0.060)
--- NOTE | 2019-08-03 15:03 | MORECARE ---
CASE MANAGEMENT DISCHARGE SUMMARY PATIENT: MARC CHADWICK UNIT: [id number] ADM DATE: 08/03/19 AGE: 74 : 47 SEX: M ROOM/BED: D.[facility] AUTHOR: ALCIDESDOC PHYSICIAN: REFERRING PHYSICIAN: SELINA BRADFORD MD DATE OF SERVICE: 08/03/19 Discharge Plan Patient Name: MARC CHADWICK Facility: [facility]:[place] : 1945 Planned Disposition: Halfway Facility Anticipated Discharge Date: Discharge Date: Expected LOS: 0 Initial Reviewer: [email or web address] Initial Review Date: 08/03/2019 Generated: 08/03/19 4:03 pm Comments DCP- Discharge Planning Updated by [email or web address]: Inna Gibbs on 08/03/19 2:[address] Patient Name: MARC CHADWICK Encounter No: [id number] : 1945 Primary Insurance: [employer] ADMINISTRATION Anticipated DC Date: Planned Disposition: Halfway Facility External Planned Provider: : DCP follow-up note: CM CALLED [facility] EXP[facility]. WILL CALL IF BED AVAILABLE. CM WILL FOLLOW AND ASSIST NEEDED. Inna Gibbs DCP- Discharge Planning Updated by [email or web address]: Elie Broderick on 08/03/19 8:[address] Patient Name: MARC CHADWICK Admission Status: ER Accout number: [id number] Admission Date: 08-03-2019 : 1945 Admission Diagnosis: Attending: GURPREET ACEVES Current LOS: 1 Anticipated DC Date: Planned Disposition: Halfway Facility Primary Insurance: [employer] ADMINISTRATION PLANNED EXTERNAL PROVIDER: [facility], MEDICARE REHAB BED Discharge Planning Comments: CM REVIEWED ADMISSION CHART, PT FROM THE [facility] SKILLED BED. CM FAXED UPDATE TO [facility] AT [phone]. FOR DISCHARGE TO [facility], FAX DISCHARGE INFORMATION TO [facility] AT [phone]; NURSE REPORT TO BE CALLED TO [facility] AT [phone]. [facility] TO ARRANGE VAN TRANSPORATION. Nodulizer: Elie Broderick Last DP export: 08/03/19 8:43 am Patient Name: MARC CHADWICK Page [id number] at 1503 All edits/amendments must be made on the electronic document DICTATION DATE: 08/03/191502 SEASONAL CLERK: JANN 08/03/191502 RPT#: [id number] DC DATE: STATUS: REG [facility] [address] [place] [address] END OF REPORT
[2019-08-03 19:28] LABS: CREATINE KINASE 20 UL (21-232); TROPONIN-I 0.035 ng/mL (0.000-0.060)
[2019-08-03 21:17] VITALS: BP 128/58
[2019-08-04 00:31] VITALS: BP 120/61
[2019-08-04 04:36] VITALS: BP 111/52
[2019-08-04 05:55] LABS: BASOPHILS 0.5 % (0-2); EOSINOPHILS 12.5 % (0-7); HEMATOCRIT 31.1 % (42.0-54.0); HEMOGLOBIN 9.3 g/dL (13.5-17.5); IMMATURE GRANULOCYTES 0.2 % (0-5); LYMPHOCYTES 21.9 % (15-50); MCH 29.2 pg (26.0-34.0); MCHC 29.9 g/dL (31.0-37.0); MCV 97.8 fL (80.0-100.0); MEAN PLATELET VOLUME 9.9 fL (7.4-10.4); MONOCYTES 11.3 % (2-11); NEUTROPHILS 53.6 % (40-80); PLATELET COUNT 140 10x3/uL (130-400); RBC 3.18 10x6/uL (4.20-6.10); RDW 16.1 % (11.5-14.5); WBC 4.2 10x3/uL (4.8-10.8)
[2019-08-04 06:25] LABS: ALBUMIN 3.2 g/dL (3.4-5.0); ANION GAP 17.9 mmol/L (8-16); BILIRUBIN - TOTAL 0.43 mg/dL (0.2-1.3); CALCIUM 9.1 mg/dL (8.5-10.1); CARBON DIOXIDE 24.7 mmol/L (21.0-32.0); CREATININE - SERUM 6.7 mg/dL (0.6-1.3); POTASSIUM - SERUM 4.6 mmol/L (3.5-5.1)
[2019-08-04 08:04] VITALS: BP 121/42
--- NOTE | 2019-08-04 08:17 | MORECARE ---
CASE MANAGEMENT DISCHARGE SUMMARY PATIENT: MARC CHADWICK UNIT: [id number] ADM DATE: 08/03/19 AGE: 74 : [birth year] SEX: M ROOM/BED: D.6517 AUTHOR: RADHA MCGRATH PHYSICIAN: REFERRING PHYSICIAN: YULY ACEVES MD DATE OF SERVICE: 08/04/19 Discharge Plan Patient Name: MARC CHADWICK Facility: [facility]:[place] : 1945 Planned Disposition: Half-Way Facility Anticipated Discharge Date: Discharge Date: Expected LOS: 0 Initial Reviewer: [email or web address] Initial Review Date: 08/03/2019 Generated: 08/04/19 9:16 am Comments DCP- Discharge Planning Updated by [email or web address]: Inna Gibbs on 08/04/19 7:[address] Patient Name: MARC CHADWICK Encounter No: [id number] : 1945 Primary Insurance: [facility] Anticipated DC Date: Planned Disposition: Half-Way Facility External Planned Provider: : DCP follow-up note: CM CALLED [facility] EXPID[facility] TO SET UP TELEMETRY BED. WILL AWAIT BED ASSIGNMENT, OR WILL DC TO HOME CARE HOME FACILITY WHEN STABLE. Inna Gibbs DCP- Discharge Planning Updated by [email or web address]: Inna Gibbs on 08/03/19 2:[address] Patient Name: MARC CHADWICK Encounter No: [id number] : 1945 Primary Insurance: [employer] Anticipated DC Date: Planned Disposition: Half-Way Facility External Planned Provider: : DCP follow-up note: CM CALLED [facility]. WILL CALL IF BED AVAILABLE. CM WILL FOLLOW AND ASSIST NEEDED. Inna Gibbs DCP- Discharge Planning Updated by [email or web address]: Elie Broderick on 08/03/19 8:[address] Patient Name: MARC CHADWICK Admission Status: ER Accout number: [id number] Admission Date: 08-03-2019 : 1945 Admission Diagnosis: Attending: GURPREET ACEVES Current LOS: 1 Anticipated DC Date: Planned Disposition: Half-Way Facility Primary Insurance: [employer] PLANNED EXTERNAL PROVIDER: [facility] MED[facility] REH[facility] BED Discharge Planning Comments: CM REVIEWED ADMISSION CHART, PT FROM THE [facility] BED. CM FAXED UPDATE TO [facility] OF [facility] AT [phone]. FOR DISCHARGE TO [facility], FAX DISCHARGE INFORMATION TO [facility] AT [phone]; NURSE REPORT TO BE CALLED TO [facility] AT [phone]. [facility] TO ARRANGE VAN TRANSPORATION. Computer Numerical Control Machinist: Elie Randolph DP export: 08/03/19 2:03 pm Patient Name: MARC CHADWICK Page [phone] at 0817 All edits/amendments must be made on the electronic document DICTATION DATE: 08/04/19815 BEE TENDER: JANN 08/04/19815 RPT#: [id number] DC DATE: STATUS: ADM IN [facility] [address] [place] [address] END OF REPORT
--- NOTE | 2019-08-04 10:05 | CN ---
PATIENT NAME:MARC CHADWICK MEDICAL RECORD: [id number] : [birth year] LOCATION:D.M2 D.2117 ADMIT DATE: 08/03/19 ACCOUNT: [id number] CONSULTING PHYSICIAN: YULY ACEVES MD REFERRING PHYSICIAN: YULY ACEVES MD DATE OF CONSULTATION: 08/03/2019 DIAGNOSES: 1. Unstable angina. 2. Coronary artery disease. 3. Previous multivessel percutaneous transluminal coronary angioplasty stent. 4. Hypertension. 5. Hyperlipidemia. 6. Peripheral vascular disease. 7. Status post AKA, left leg. HISTORY OF PRESENT ILLNESS: This is a gentleman who has extensive cardiac history, multiple myocardial infarctions, multiple stents in the past, who began having chest pain earlier this week. It has escalated. He is having episodes of rest pain. His pain was relieved with nitro, his pain has returned. His EKG is with no acute ST elevation. His chest pain is just like that of his previous angina and he does continue to have the pain at a 3-4/10 at this time. His troponin is borderline. PHYSICAL EXAMINATION: CONSTITUTIONAL/GENERAL APPEARANCE: Well nourished, well developed, appears stated age. EYES: Lids and conjunctivae noninjected. No discharge. No pallor. ENT: Lips within normal limit. No cyanosis. No pallor. NECK: Carotid arteries, bilateral normal upstroke. No bruits. No thrills. No jugular venous pressure or distention. CERVICAL LYMPH NODES: Nontender. Nonenlarged. THYROID: Not enlarged. No nodules. CARDIOVASCULAR: Precordial exam, nondisplaced. No heaves or pericardial thrills. Rate and rhythm, regular. Heart sounds, normal S1, normal S2. No S3, no gallop, no rub. Systolic murmur, not heard. Diastolic murmur, not heard. RESPIRATORY: Respiratory effort, unlabored. Normal curvature. No thoracic deformity. No chest wall tenderness. Percussion, resonant. Auscultation, clear. No wheezes, no rales, no rhonchi. ABDOMEN: Soft, nondistended, nontender. No abdominal pain, no vomiting and normal appetite. MUSCULOSKELETAL: No joint tenderness, normal gait, normal tone. SKIN: Warm and dry. OVERALL IMPRESSION: Unstable angina class IV in a patient with extensive cardiac disease. Chest pain is just like that of his previous angina. We will add nitrates and proceed with repeat coronary angiography. Further care depends upon the findings of the angiography. TRANSINT:[id number] Voice Confirmation ID: [id number] DOCUMENT ID: [id number] CONSULT REPORT [id number] MARC CHADWICK JEFFREY MD at 1005 CC: [id number] DICTATION DATE: 08/03/19 0838 BUSINESS ANALYSIS SPECIALIST: 08/03/19 1111 ADM IN [place] [address] [place] [address]
--- NOTE | 2019-08-04 10:35 | MORECARE ---
CASE MANAGEMENT DISCHARGE SUMMARY PATIENT: MARC CHADWICK UNIT: [id number] ADM DATE: 08/03/19 AGE: 74 : [birth year] SEX: M ROOM/BED: D.4421 AUTHOR: ALCIDESDOC PHYSICIAN: REFERRING PHYSICIAN: YULY ACEVES MD DATE OF SERVICE: 08/04/19 Discharge Plan Patient Name: MARC CHADWICK Facility: [facility]:[place] : 1945 Planned Disposition: Care Home Facility Anticipated Discharge Date: Discharge Date: Expected LOS: 0 Initial Reviewer: [id number] Initial Review Date: 08/03/2019 Generated: 08/04/19 11:34 am Comments DCP- Discharge Planning Updated by [id number]: Elie Broderick on 08/04/19 9:[address] Patient Name: MARC CHADWICK Encounter No: [id number] : 1945 Primary Insurance: [facility] Anticipated DC Date: Planned Disposition: Care Home Facility External Planned Provider: [facility] MEDICARE REHAB BED Discharge Planning Comments: CM RECEIVED DISCHARGE ORDER, ATTEMPTED TO MEET WITH PT FOR INITIAL ASSESSMENT OF DISCHARGE NEEDS. PT WAS NOT IN ROOM AT APPROXIMATELY 1115 HOURS. CM TO ATTEMPT ASSESSMENT OF PT AT A LATER TIME. FOR DISCHARGE TO [facility], FAX DISCHARGE INFORMATION TO THE [facility] AT [phone]; NURSE REPORT TO BE CALLED TO THE [facility] AT [phone]. THE [facility] TO ARRANGE VAN TRANSPORATION. Painter Railroad Car: Elie Broderick DCP- Discharge Planning Updated by [id number]: Inna Gibbs on 08/04/19 7:[address] Patient Name: MARC CHADWICK Encounter No: [id number] : 1945 Primary Insurance: [facility] Anticipated DC Date: Planned Disposition: Care Home Facility External Planned Provider: : DCP follow-up note: CM CALLED [facility] EX[facility] TO SET UP TELEMETRY BED. WILL AWAIT BED ASSIGNMENT, OR WILL DC TO HOME CARE HOME FACILITY WHEN STABLE. Inna Gibbs DCP- Discharge Planning Updated by [id number]: Inna Gibbs on 08/03/19 2:[address] Patient Name: MARC CHADWICK Encounter No: [id number] : 1945 Primary Insurance: [employer] Anticipated DC Date: Planned Disposition: Care Home Facility External Planned Provider: : DCP follow-up note: CM CALLED [facility] EXPEDIT[facility]. WILL CALL IF BED AVAILABLE. CM WILL FOLLOW AND ASSIST NEEDED. Inna Gibbs DCP- Discharge Planning Updated by [id number]: Elie Broderick on 08/03/19 8:[address] Patient Name: MARC CHADWICK Admission Status: ER Accout number: [id number] Admission Date: 08-03-2019 : 1945 Admission Diagnosis: Attending: GURPREET ACEVES Current LOS: 1 Anticipated DC Date: Planned Disposition: Care Home Facility Primary Insurance: [employer] PLANNED EXTERNAL PROVIDER: [facility], MEDICARE REHAB BED Discharge Planning Comments: CM REVIEWED ADMISSION CHART, PT FROM THE [facility] SKILLED BED. CM FAXED UPDATE TO FRIANT OF THE [facility] AT [phone]. FOR DISCHARGE TO THE [facility], FAX DISCHARGE INFORMATION TO THE [facility] AT [phone]; NURSE REPORT TO BE CALLED TO THE [facility] AT [phone]. THE [facility] TO ARRANGE VAN TRANSPORATION. Painter Railroad Car: Elie Broderick Last DP export: 08/04/19 7:17 am Patient Name: MARC CHADWICK Page [phone] at 1035 All edits/amendments must be made on the electronic document DICTATION DATE: 08/04/19 1034 COMMUNITY ENGAGEMENT MANAGER: JANN 08/04/19 1034 RPT#: [id number] DC DATE: STATUS: ADM IN [facility] [address] [place] [address] END OF REPORT
[2019-08-04 12:34] VITALS: BP 132/57
[2019-08-04 13:22] VITALS: Ht 165.1 cm; Wt 67.0 kg
--- NOTE | 2019-08-04 13:33 | MORECARE ---
CASE MANAGEMENT DISCHARGE SUMMARY PATIENT: MARC CHADWICK UNIT: [id number] ADM DATE: 08/03/19 AGE: 74 : 47 SEX: M ROOM/BED: D.2198 AUTHOR: ALCIDESDOC PHYSICIAN: REFERRING PHYSICIAN: SELINA BRADFORD MD DATE OF SERVICE: 08/04/19 Discharge Plan Patient Name: MARC CHADWICK Facility: [facility]:[place] : 1945 Planned Disposition: Home Anticipated Discharge Date: 08/04/19 Discharge Date: Expected LOS: 1 Initial Reviewer: [id number] Initial Review Date: 08/03/2019 Generated: 08/04/19 2:33 pm Comments DCP- Discharge Planning Updated by [id number]: Elie Broderick on 08/04/19 9:[address] Patient Name: MARC CHADWICK Encounter No: [id number] : 1945 Primary Insurance: [facility] Anticipated DC Date: Planned Disposition: Jail Facility External Planned Provider: [facility] MEDICARE REHAB BED Discharge Planning Comments: CM RECEIVED DISCHARGE ORDER, ATTEMPTED TO MEET WITH PT FOR INITIAL ASSESSMENT OF DISCHARGE NEEDS. PT WAS NOT IN ROOM AT APPROXIMATELY 1115 HOURS. CM TO ATTEMPT ASSESSMENT OF PT AT A LATER TIME. FOR DISCHARGE TO THE [facility], FAX DISCHARGE INFORMATION TO THE [facility] AT [phone]; NURSE REPORT TO BE CALLED TO THE [facility] AT [phone]. THE [facility] TO ARRANGE VAN TRANSPORATION. Certified Pedorthotist: Elie Broderick DCP- Discharge Planning Updated by [email or web address]: Inna Gibbs on 08/04/19 7:[address] Patient Name: MARC CHADWICK Encounter No: [id number] : 1945 Primary Insurance: [facility] Anticipated DC Date: Planned Disposition: Jail Facility External Planned Provider: : DCP follow-up note: CM CALLED [facility] EXPIDITOR TO SET UP TELEMETRY BED. WILL AWAIT BED ASSIGNMENT, OR WILL DC TO HOME [facility] FACILITY WHEN STABLE. Inna Gibbs DCP- Discharge Planning Updated by [id number]: Inna Gibbs on 08/03/19 2:[address] Patient Name: MARC CHADWICK Encounter No: [id number] : 1945 Primary Insurance: [employer] Anticipated DC Date: Planned Disposition: Jail Facility External Planned Provider: : DCP follow-up note: CM CALLED [facility] EXPEDITOR. WILL CALL IF BED AVAILABLE. CM WILL FOLLOW AND ASSIST NEEDED. Inna Gibbs DCP- Discharge Planning Updated by [email or web address]: Elie Broderick on 08/03/19 8:[address] Patient Name: MARC CHADWICK Admission Status: ER Accout number: [id number] Admission Date: 08-03-2019 : 1945 Admission Diagnosis: Attending: GURPREET ACEVES Current LOS: 1 Anticipated DC Date: Planned Disposition: Jail Facility Primary Insurance: [facility] PLANNED EXTERNAL PROVIDER: [facility], MEDICARE REHAB BED Discharge Planning Comments: CM REVIEWED ADMISSION CHART, PT FROM THE [facility] SKILLED BED. CM FAXED UPDATE TO KIMBERLY OF THE [facility] AT [phone]. FOR DISCHARGE TO THE [facility], FAX DISCHARGE INFORMATION TO THE [facility] AT [phone]; NURSE REPORT TO BE CALLED TO THE [facility] AT [phone]. THE [facility] TO ARRANGE VAN TRANSPORATION. Certified Pedorthotist: Elie Broderick DCPIA - Discharge Planning Initial Assessment Updated by [id number]: Elie Broderick on 08/04/19 1:31 pm * Is the patient Alert and Oriented? Yes * How many steps to enter\exit or inside your home? RAMP * [place] [facility] [place] * [place] * Preadmission Environment Home with Family * ADLs Independent * Equipment Power Chair or Electric Scooter Wheelchair * Other Equipment [employer] - MEDICAL EQUIPMENT PROVIDER * List name and contact numbers for known caregivers / representatives who currently or will assist patient after discharge: JULIO C PLEITEZ, FRIEND, * Verbal permission to speak to the caregivers and representatives has been obtained from the patient. N/A * Community resources currently utilized Other * Please name any agencies selected above. [facility], [facility], MWF, 1100, [facility]SP[facility] * Additional services required to return to the preadmission environment? No * Can the patient safely return to the preadmission environment? Yes * Has this patient been hospitalized within the prior 30 days at any hospital? No Last DP export: 08/04/19 9:35 am Patient Name: MARC CHADIWCK Page 45891 at 1333 All edits/amendments must be made on the electronic document DICTATION DATE: 08/04/191332 KIOS[employer] SALES REPRESENTATIVE: JANN 08/04/193 RPT#: [id number] DC DATE: STATUS: ADM IN [facility] [address] [place] [address] END OF REPORT
--- NOTE | 2019-08-04 13:49 | MORECARE ---
CASE MANAGEMENT DISCHARGE SUMMARY PATIENT: MARC CHADWICK UNIT: [id number] ADM DATE: 08/03/19 AGE: 74 : [birth year] SEX: M ROOM/BED: D.3450 AUTHOR: ALCIDES,DOC PHYSICIAN: REFERRING PHYSICIAN: SELINA BRADFORD MD DATE OF SERVICE: 08/04/19 Discharge Plan Patient Name: MARC CHADWICK Facility: [facility]:[place] : 1945 Planned Disposition: Home Anticipated Discharge Date: 08/04/19 Discharge Date: Expected LOS: 1 Initial Reviewer: [id number] Initial Review Date: 08/03/2019 Generated: 08/04/19 2:49 pm Comments DCP- Discharge Planning Updated by [email or web address]: Elie Broderick on 08/04/19 12:[address] Patient Name: MARC CHADWICK Encounter No: [id number] : 1945 Primary Insurance: [employer] Anticipated DC Date: 08-04-2019 Planned Disposition: Home DCP follow-up note: CM MET WITH PT IN ROOM. PT AWAKE AND ALERT. CM DISCUSSED DISCHARGE PLANNING. PT REPORTS HE LIVED AT THE [facility] FOR ABOUT 2 MONTHS. PT IS NOT HAPPY WITH THE CARE THERE AND IS NOT GOING BACK. PT REPORTS HE IS GOING HOME. PT STATES HE HAS ELECTRIC AND STANDARD WHEELCHAIR AT HOME FROM THE [place]. PT HAS NO OUTSIDE SERVICES ASSISTING IN THE HOME. PT HAS A FRIEND, JESUS, WHO ALSO LIVES IN THE HOME WITH PT AND WILL BE AVAILABLE TO ASSIST PT IF NEEDED. PT REPORTS ABILITY TO TRANSFER SELF TO BED AND CHAIR AND REPORTS BEING INDEPENDENT IN EATING, DRESSING, BATHING, TOILETING AND MEDICATION MANAGEMENT. PT REPORTS HE WILL GO TO DIALYSIS TOMORROW SCHEDULED AND CAN TAKE A CAB. PT REPORTS HAVING FUNDS FOR [facility] AND FOR TRANSPORTATION TO AND FROM DIALYSIS. PT REPORTS HE CANNOT BE MADE TO GO BACK TO THE [facility] IF HE DOES NOT WANT TO GO. PT STATES HE WILL [facility] WITH [facility] ABOUT HOME MEDICATIONS AND HOME HEALTH SERVICES. PT DOES NOT WANT CM TO PLACE HIM ELSEWHERE; PT DENIES NEEDS FOR DISCHARGE AND WANTS TO GO HOME TODAY. REFUSAL OF THE [facility], LONGTERM AND LONG-TERM SIGNED. PT ASKED CM TO CALL THE [facility] AND HAVE HIS WALLET AND CELL PHONE BROUGHT TO HIM FOR DISCHARGE TODAY. PT REQUESTED CM TO FAX [place] TODAY. CM CALLED AND SPOKE TO NIKKIE OF THE [facility], NOTIFIED THAT PT WILL NOT RETURN TO FACILITY; NIKKIE ADVISED PT IS RESPONSIBLE FOR HIMSELF AND MAKES DECISIONS FOR HIMSELF. NIKKIE ADVISED THAT THEY WILL BRING PT'S WALLET AND PHONE TO HIM SHORTLY. NIKKIE ADVISED THAT THEY PLAN TO CALL ADULT PROTECTIVE SERVICES THEY DO NOT FEEL THAT PT GOING HOME IS A SAFE DISCHARGE PLAN. CM CALLED [facility] AT , PROVIDED REFERRAL FOR SELF NEGLECT. CM FAXED PT'S CHART NOTES FROM THIS STAY TO [facility] AT [phone]. PT PLANS TO DISCHARGE HOME AND HAS FRIEND THAT LIVES WITH HIM TO ASSIST IF NEEDED. PT DENIES DISCHARGE NEEDS AND WILL CALL A [facility] TO GET HIM HOME TODAY. PT STATES HE HAS FUNDS FOR TRANSPORTATION. Elie Broderick, CASE MANAGEMENT DCP- Discharge Planning Updated by [id number]: Elie Broderick on 08/04/19 9:[address] Patient Name: MARC CHADWICK Encounter No: [id number] : 1945 Primary Insurance: [facility] Anticipated DC Date: Planned Disposition: Intermediate Facility External Planned Provider: [facility] MEDICARE REHAB BED Discharge Planning Comments: CM RECEIVED DISCHARGE ORDER, ATTEMPTED TO MEET WITH PT FOR INITIAL ASSESSMENT OF DISCHARGE NEEDS. PT WAS NOT IN ROOM AT APPROXIMATELY 1115 HOURS. CM TO ATTEMPT ASSESSMENT OF PT AT A LATER TIME. FOR DISCHARGE TO THE [facility], FAX DISCHARGE INFORMATION TO THE [facility] AT [phone]; NURSE REPORT TO BE CALLED TO THE [facility] AT [phone]. THE [facility] TO ARRANGE VAN TRANSPORATION. Marine Engineering Technicians: Elie Broderick DCP- Discharge Planning Updated by [id number]: Inna Gibbs on 08/04/19 7:[address] Patient Name: MARC CHADWICK Encounter No: [id number] : 1945 Primary Insurance: [facility] ADMIN[facility]ATION Anticipated DC Date: Planned Disposition: Intermediate Facility External Planned Provider: : DCP follow-up note: CM CALLED VA EXPIDITOR TO SET UP TELEMETRY BED. WILL AWAIT BED ASSIGNMENT, OR WILL DC TO HOME LONGTERM FACILITY WHEN STABLE. Inna Gibbs DCP- Discharge Planning Updated by [id number]: Inna Gibbs on 08/03/19 2:[address] Patient Name: MARC CHADWICK Encounter No: [id number] : 1945 Primary Insurance: [employer] Anticipated DC Date: Planned Disposition: Intermediate Facility External Planned Provider: : DCP follow-up note: CM CALLED VA EXPEDITOR. WILL CALL IF BED AVAILABLE. CM WILL FOLLOW AND ASSIST NEEDED. Inna Bernie DCP- Discharge Planning Updated by [id number]: Elie Broderick on 08/03/19 8:[address] Patient Name: MARC CHADWICK Admission Status: ER Accout number: [id number] Admission Date: 08-03-2019 : 1945 Admission Diagnosis: Attending: GURPREET ACEVES Current LOS: 1 Anticipated DC Date: Planned Disposition: Intermediate Facility Primary Insurance: [employer] PLANNED EXTERNAL PROVIDER: [facility] MEDICARE REHAB BED Discharge Planning Comments: CM REVIEWED ADMISSION CHART, PT FROM [facility] SKILLED BED. CM FAXED UPDATE TO LADD OF THE [facility] AT [phone]. FOR DISCHARGE TO THE [facility], FAX DISCHARGE INFORMATION TO THE [facility] AT [phone]; NURSE REPORT TO BE CALLED TO THE [facility] AT [phone]. THE [facility] TO ARRANGE VAN TRANSPORATION. Marine Engineering Technicians: Elie Broderick DCPIA - Discharge Planning Initial Assessment Updated by [id number]: Elie Broderick on 08/04/19 1:31 pm * Is the patient Alert and Oriented? Yes * How many steps to enter\exit or inside your home? RAMP * [place]CP [place] [facility] [place] * [place] * Preadmission Environment Home with Family * ADLs Independent * Equipment Power Chair or Electric Scooter Wheelchair * Other Equipment [employer] - MEDICAL EQUIPMENT PROVIDER * List name and contact numbers for known caregivers / representatives who currently or will assist patient after discharge: JULIO C PLEITEZ, FRIEND, * Verbal permission to speak to the caregivers and representatives has been obtained from the patient. N/A * Community resources currently utilized Other * Please name any agencies selected above. [facility], [facility], MWF, 1100, [facility]SP[facility] * Additional services required to return to the preadmission environment? No * Can the patient safely return to the preadmission environment? Yes * Has this patient been hospitalized within the prior 30 days at any hospital? No External Providers External Provider: OTHER-OTHER Next Contact Date: 08/04/2019 Service Request Date: Service Type: Resolution: Reviewer: Comments: Last DP export: 08/04/19 12:33 pm Patient Name: MARC CHADWICK Page 62498 at 1349 All edits/amendments must be made on the electronic document DICTATION DATE: 08/04/19 1349 SLUG PRESS OPERATOR: JANN 08/04/19 1349 RPT#: [id number] DC DATE: STATUS: ADM IN [facility] [address] [place] [address] END OF REPORT
--- NOTE | 2019-08-04 14:07 | MORECARE ---
CASE MANAGEMENT DISCHARGE SUMMARY PATIENT: MARC CHADWICK UNIT: [id number] ADM DATE: 08/03/19 AGE: 74 : [birth year] SEX: M ROOM/BED: D.8261 AUTHOR: ALCIDES,DOC PHYSICIAN: REFERRING PHYSICIAN: SELINA BRADFORD MD DATE OF SERVICE: 08/04/19 Discharge Plan Patient Name: MARC CHADWICK Facility: [facility]:[place] : 1945 Planned Disposition: Home Anticipated Discharge Date: 08/04/19 Discharge Date: Expected LOS: 1 Initial Reviewer: [id number] Initial Review Date: 08/03/2019 Generated: 08/04/19 3:06 pm Comments DCP- Discharge Planning Updated by [id number]: Elie Malik on 08/04/19 1:[address] Patient Name: MARC CHADWICK Encounter No: [id number] : 1945 Primary Insurance: [employer] Anticipated DC Date: 08-04-2019 Planned Disposition: Home DCP follow-up note: CM MET WITH PT IN ROOM. PT AWAKE AND ALERT. CM DISCUSSED DISCHARGE PLANNING. PT REPORTS HE LIVED AT THE [facility] FOR ABOUT 2 MONTHS. PT IS NOT HAPPY WITH THE CARE THERE AND IS NOT GOING BACK. PT REPORTS HE IS GOING HOME. PT STATES HE HAS ELECTRIC AND STANDARD WHEELCHAIR AT HOME FROM THE [place]. PT HAS NO OUTSIDE SERVICES ASSISTING IN THE HOME. PT HAS A FRIEND, JESUS, WHO ALSO LIVES IN THE HOME WITH PT AND WILL BE AVAILABLE TO ASSIST PT IF NEEDED. PT REPORTS ABILITY TO TRANSFER SELF TO BED AND CHAIR AND REPORTS BEING INDEPENDENT IN EATING, DRESSING, BATHING, TOILETING AND MEDICATION MANAGEMENT. PT REPORTS HE WILL GO TO DIALYSIS TOMORROW SCHEDULED AND CAN TAKE A CAB. PT REPORTS HAVING FUNDS FOR [facility] HOME AND FOR TRANSPORTATION TO AND FROM DIALYSIS. PT REPORTS HE CANNOT BE MADE TO GO BACK TO THE [facility] IF HE DOES NOT WANT TO GO. PT STATES HE WILL FOLLOW UP WITH THE [facility] ABOUT HOME MEDICATIONS AND HOME HEALTH SERVICES. PT DOES NOT WANT CM TO PLACE HIM ELSEWHERE; PT DENIES NEEDS FOR DISCHARGE AND WANTS TO GO HOME TODAY. REFUSAL OF THE [facility], NURSING HOME AND SENIOR LIVING SIGNED. PT ASKED CM TO CALL THE [facility] AND HAVE HIS WALLET AND CELL PHONE BROUGHT TO HIM FOR DISCHARGE TODAY. PT REQUESTED CM TO FAX HIS MEDICAL REC[place] TO THE [place] TODAY. CM CALLED AND SPOKE TO NIKKIE OF THE [facility], NOTIFIED THAT PT WILL NOT RETURN TO FACILITY; NIKKIE ADVISED PT IS RESPONSIBLE FOR HIMSELF AND MAKES DECISIONS FOR HIMSELF. NIKKIE ADVISED THAT THEY WILL BRING PT'S WALLET AND PHONE TO HIM SHORTLY. NIKKIE ADVISED THAT THEY PLAN TO CALL ADULT PROTECTIVE SERVICES THEY DO NOT FEEL THAT PT GOING HOME IS A SAFE DISCHARGE PLAN. CM CALLED [facility] SERVICES AT , PROVIDED REFERRAL FOR SELF NEGLECT. CM FAXED PT'S CHART NOTES FROM THIS STAY TO [facility] AT [phone]. PT PLANS TO DISCHARGE HOME AND HAS FRIEND THAT LIVES WITH HIM TO ASSIST IF NEEDED. PT DENIES DISCHARGE NEEDS AND WILL CALL A [facility]AX[facility] TO GET HIM HOME TODAY. PT STATES HE HAS FUNDS FOR TRANSPORTATION. Elie Malik, CASE MANAGEMENT Appended by Elie Malik on 08/04/2019 14:00 EXPERIENCE DESIGNER: CM CALLED [facility], , SPOKE TO AISHA AND NOTIFIED OF PT'S SITUATION, PT'S INTENTION TO DISCHARGE HOME AND FOLLOW UP WITH [place]. AISHA WILL NOTIFY PRIMARY CARE TEAM AT [place]. ELIE MALIK, CASE MANAGEMENT DCP- Discharge Planning Updated by [id number]: Elie Malik on 08/04/19 9:[address] Patient Name: MARC CHADWICK Encounter No: [id number] : 1945 Primary Insurance: [employer] Anticipated DC Date: Planned Disposition: Shelter Facility External Planned Provider: [facility] MED[facility]ARE RE[facility] B[facility] Discharge Planning Comments: CM RECEIVED DISCHARGE ORDER, ATTEMPTED TO MEET WITH PT FOR INITIAL ASSESSMENT OF DISCHARGE NEEDS. PT WAS NOT IN ROOM AT APPROXIMATELY 1115 HOURS. CM TO ATTEMPT ASSESSMENT OF PT AT A LATER TIME. FOR DISCHARGE TO THE [facility], FAX DISCHARGE INFORMATION TO THE [facility] AT [phone]; NURSE REPORT TO BE CALLED TO THE [facility] AT [phone]. THE [facility] TO ARRANGE VAN TRANSPORATION. Emergency Manager: Elie Malik DCP- Discharge Planning Updated by [id number]: Inna Gibbs on 08/04/19 7:[address] Patient Name: MARC CHADWICK Encounter No: [id number] : 1945 Primary Insurance: [employer] Anticipated DC Date: Planned Disposition: Shelter Facility External Planned Provider: : DCP follow-up note: CM CALLED VA EXPIDITOR TO SET UP TELEMETRY BED. WILL AWAIT BED ASSIGNMENT, OR WILL DC TO HOME NURSING HOME FACILITY WHEN STABLE. Inna Gibbs DCP- Discharge Planning Updated by [id number]: Inna Gibbs on 08/03/19 2:[address] Patient Name: MARC CHADWICK Encounter No: [id number] : 1945 Primary Insurance: [employer] Anticipated DC Date: Planned Disposition: Shelter Facility External Planned Provider: : DCP follow-up note: CM CALLED [facility]. WILL CALL IF BED AVAILABLE. CM WILL FOLLOW AND ASSIST NEEDED. Inna Gibbs DCP- Discharge Planning Updated by [id number]: Elie Malik on 08/03/19 8:[address] Patient Name: MARC CHADWICK Admission Status: ER Accout number: [id number] Admission Date: 08-03-2019 : 1945 Admission Diagnosis: Attending: GURPREET ACEVES Current LOS: 1 Anticipated DC Date: Planned Disposition: Shelter Facility Primary Insurance: [facility] PLANNED EXTERNAL PROVIDER: [facility], MEDICARE REHAB BED Discharge Planning Comments: CM REVIEWED ADMISSION CHART, PT FROM THE [facility] SKILLED BED[facility] AT [phone]. FOR DISCHARGE TO THE [facility]SING [facility] RE[facility], FAX DISCHARGE INFORMATION TO THE [facility] AT [phone]; NURSE REPORT TO BE CALLED TO THE [facility] AT [phone]. THE [facility] TO ARRANGE VAN TRANSPORATION. Emergency Manager: Elie Malik DCPIA - Discharge Planning Initial Assessment Updated by [email or web address]: Elie Malik on 08/04/19 1:31 pm * Is the patient Alert and Oriented? Yes * How many steps to enter\exit or inside your home? RAMP * [place] [facility] [place] * Pharm[place] * Preadmission Environment Home with Family * ADLs Independent * Equipment Power Chair or Electric Scooter Wheelchair * Other Equipment [employer] - MEDICAL EQUIPMENT PROVIDER * List name and contact numbers for known caregivers / representatives who currently or will assist patient after discharge: JULIO C PLEITEZ FRIEND, * Verbal permission to speak to the caregivers and representatives has been obtained from the patient. N/A * Community resources currently utilized Other * Please name any agencies selected above. [facility], [facility], MWF, 1100, [facility] TRANSPORT * Additional services required to return to the preadmission environment? No * Can the patient safely return to the preadmission environment? Yes * Has this patient been hospitalized within the prior 30 days at any hospital? No Coverage Notice Reviewer: [id number] Farooq Malik Notice Issued Date-Time: 08/04/2019 12:15 Notice Type: Patient Choice Letter Notice Delivered To: Patient Relationship to Patient: Um Specialist Name: Delivery Method: HAND - Hand Delivered Lakisha Days: Prior Verbal Notification: Recipient Understood Notice: Recipient Signature: Med Rec Note Co-signed by Attending: Coverage Notice Comment: REFUSAL OF NURSING HOME, SENIOR LIVING OR RETURN TO THE [facility]. Last DP export: 08/04/19 12:49 pm Patient Name: MARC CHADWICK Page 26550 at 1407 All edits/amendments must be made on the electronic document DICTATION DATE: 08/04/19 1405 CHIEF SCHOOL FINANCE OFFICER: JANN 08/04/19 1405 RPT#: [id number] DC DATE: STATUS: ADM IN [facility] [address] [place] [address] END OF REPORT
--- NOTE | 2019-08-05 09:50 | MORECARE ---
CASE MANAGEMENT DISCHARGE SUMMARY PATIENT: MARC CHADWICK UNIT: [id number] ADM DATE: 08/03/19 AGE: 74 : [birth year] SEX: M ROOM/BED: D.7536 AUTHOR: ALCIDES,DOC PHYSICIAN: REFERRING PHYSICIAN: SELINA BRADFORD MD DATE OF SERVICE: 08/05/19 Discharge Plan Patient Name: MARC CHADWICK Facility: [facility]:[place] : 1945 Planned Disposition: Home Anticipated Discharge Date: 08/04/19 Discharge Date: 08/04/2019 Expected LOS: 1 Initial Reviewer: [email or web address] Initial Review Date: 08/03/2019 Generated: 08/05/19 10:49 am Comments DCP- Discharge Planning Updated by [id number]: Elie Malik on 08/04/19 1:[address] Patient Name: MARC CHADWICK Encounter No: [id number] : 1945 Primary Insurance: [employer] ADMINISTRATION Anticipated DC Date: 08-04-2019 Planned Disposition: Home DCP follow-up note: CM MET WITH PT IN ROOM. PT AWAKE AND ALERT. CM DISCUSSED DISCHARGE PLANNING. PT REPORTS HE LIVED AT THE [facility] FOR ABOUT 2 MONTHS. PT IS NOT HAPPY WITH THE CARE THERE AND IS NOT GOING BACK. PT REPORTS HE IS GOING HOME. PT STATES HE HAS ELECTRIC AND STANDARD WHEELCHAIR AT HOME FROM [place]. PT HAS NO OUTSIDE SERVICES ASSISTING IN THE HOME. PT HAS A FRIEND, JESUS, WHO ALSO LIVES IN THE HOME WITH PT AND WILL BE AVAILABLE TO ASSIST PT IF NEEDED. PT REPORTS ABILITY TO TRANSFER SELF TO BED AND CHAIR AND REPORTS BEING INDEPENDENT IN EATING, DRESSING, BATHING, TOILETING AND MEDICATION MANAGEMENT. PT REPORTS HE WILL GO TO DIALYSIS TOMORROW SCHEDULED AND CAN TAKE A CAB. PT REPORTS HAVING FUNDS FOR [facility] HOME AND FOR TRANSPORTATION TO AND FROM DIALYSIS. PT REPORTS HE CANNOT BE MADE TO GO BACK TO THE [facility] IF HE DOES NOT WANT TO GO. PT STATES HE WILL FOLLOW UP WITH THE [facility] ABOUT HOME MEDICATIONS AND HOME HEALTH SERVICES. PT DOES NOT WANT CM TO PLACE HIM ELSEWHERE; PT DENIES NEEDS FOR DISCHARGE AND WANTS TO GO HOME TODAY. REFUSAL OF THE [facility], CARE HOME AND SNF SIGNED. PT ASKED CM TO CALL THE [facility] AND HAVE HIS WALLET AND CELL PHONE BROUGHT TO HIM FOR DISCHARGE TODAY. PT REQUESTED CM TO FAX HIS MEDICAL RECORD TO THE [facility] TODAY. CM CALLED AND SPOKE TO NIKKIE OF THE [facility], NOTIFIED THAT PT WILL NOT RETURN TO FACILITY; NIKKIE ADVISED PT IS RESPONSIBLE FOR HIMSELF AND MAKES DECISIONS FOR HIMSELF. NIKKIE ADVISED THAT THEY WILL BRING PT'S WALLET AND PHONE TO HIM SHORTLY. NIKKIE ADVISED THAT THEY PLAN TO CALL ADULT PROTECTIVE SERVICES THEY DO NOT FEEL THAT PT GOING HOME IS A SAFE DISCHARGE PLAN. CM CALLED ADULT PROTECTIVE SERVICES AT , PROVIDED REFERRAL FOR SELF NEGLECT. CM FAXED PT'S CHART NOTES FROM THIS STAY TO [facility] AT [phone]. PT PLANS TO DISCHARGE HOME AND HAS FRIEND THAT LIVES WITH HIM TO ASSIST IF NEEDED. PT DENIES DISCHARGE NEEDS AND WILL CALL A [facility] TO GET HIM HOME TODAY. PT STATES HE HAS FUNDS FOR TRANSPORTATION. Elie Malik, CASE MANAGEMENT Appended by Elie Malik on 08/04/2019 14:00 INVESTIGATIONS CONSULTANT: CM CALLED [facility], , SPOKE TO AISHA AND NOTIFIED OF PT'S SITUATION, PT'S INTENTION TO DISCHARGE HOME AND FOLLOW UP WITH [facility]. AISHA WILL NOTIFY PRIMARY CARE TEAM AT [facility]. ELIE MALIK, CASE MANAGEMENT DCP- Discharge Planning Updated by [email or web address]: Elie Malik on 08/04/19 9:[address] Patient Name: MRAC CHADWICK Encounter No: [id number] : 1945 Primary Insurance: [employer] Anticipated DC Date: Planned Disposition: Fpc Facility External Planned Provider: [facility] MEDICARE REHAB BED Discharge Planning Comments: CM RECEIVED DISCHARGE ORDER, ATTEMPTED TO MEET WITH PT FOR INITIAL ASSESSMENT OF DISCHARGE NEEDS. PT WAS NOT IN ROOM AT APPROXIMATELY 1115 HOURS. CM TO ATTEMPT ASSESSMENT OF PT AT A LATER TIME. FOR DISCHARGE TO THE [facility]URSING AND RE[facility], FAX DISCHARGE INFORMATION TO THE [facility] AT [phone]; NURSE REPORT TO BE CALLED TO THE [facility] AT [phone]. THE [facility] TO ARRANGE VAN TRANSPORATION. Sales Floor Team Leader: Elie Malik DCP- Discharge Planning Updated by [id number]: Inna Gibbs on 08/04/19 7:[address] Patient Name: MARC CHADWICK Encounter No: [id number] : 1945 Primary Insurance: [employer] Anticipated DC Date: Planned Disposition: Fpc Facility External Planned Provider: : DCP follow-up note: [facility]ED [facility] TELEMETRY BED. WILL AWAIT BED ASSIGNMENT, OR WILL DC TO HOME CARE HOME FACILITY WHEN STABLE. Inna Gibbs DCP- Discharge Planning Updated by [id number]: Inna Gibbs on 08/03/19 2:[address] Patient Name: MARC CHADWICK Encounter No: [id number] : 1945 Primary Insurance: [employer] Anticipated DC Date: Planned Disposition: Fpc Facility External Planned Provider: : DCP follow-up note: CM CALLED [facility]. WILL CALL IF BED AVAILABLE. CM WILL FOLLOW AND ASSIST NEEDED. Inna Gibbs DCP- Discharge Planning Updated by [id number]: Elie Malik on 08/03/19 8:[address] Patient Name: MARC CHADWICK Admission Status: ER Accout number: [id number] Admission Date: 08-03-2019 : 1945 Admission Diagnosis: Attending: GURPREET ACEVES Current LOS: 1 Anticipated DC Date: Planned Disposition: Fpc Facility Primary Insurance: [employer] [facility] PLANNED EXTERNAL PROVIDER: [facility], MEDICARE REHAB BED Discharge Planning Comments: CM REVIEWED ADMISSION CHART, PT FROM THE [facility] SKILLED BED. [facility] AT [phone]. FOR DISCHARGE TO THE [facility], FAX DISCHARGE INFORMATION TO THE [facility] AT [phone]; NURSE REPORT TO BE CALLED TO THE [facility] AT [phone]. [facility] TO ARRANGE VAN TRANSPORATION. Sales Floor Team Leader: Elie Malik DCPIA - Discharge Planning Initial Assessment Updated by [id number]: Elie Malik on 08/04/19 1:31 pm * Is the patient Alert and Oriented? Yes * How many steps to enter\exit or inside your home? RAMP * PCP [facility] * [place] * Preadmission Environment Home with Family * ADLs Independent * Equipment Power Chair or Electric Scooter Wheelchair * Other Equipment [employer] - MEDICAL EQUIPMENT PROVIDER * List name and contact numbers for known caregivers / representatives who currently or will assist patient after discharge: JULIO C PLEITEZ, FRIEND, * Verbal permission to speak to the caregivers and representatives has been obtained from the patient. N/A * Community resources currently utilized Other * Please name any agencies selected above. [facility], [facility], MWF, 1100, [facility] TRANSPORT * Additional services required to return to the preadmission environment? No * Can the patient safely return to the preadmission environment? Yes * Has this patient been hospitalized within the prior 30 days at any hospital? No Coverage Notice Reviewer: [id number] Farooq Malik Notice Issued Date-Time: 08/04/2019 12:15 Notice Type: Patient Choice Letter Notice Delivered To: Patient Relationship to Patient: Fuels Engineer Name: Delivery Method: HAND - Hand Delivered Lakisha Days: Prior Verbal Notification: Recipient Understood Notice: Recipient Signature: Med Rec Note Co-signed by Attending: Coverage Notice Comment: REFUSAL OF CARE HOME, SNF OR RETURN TO THE [facility]. Last DP export: 08/04/19 1:07 pm Patient Name: MARC CHADWICK Page [phone] at 0950 All edits/amendments must be made on the electronic document DICTATION DATE: 08/05/19948 FREIGHT SORTER: JANN 08/05/19948 RPT#: [id number] DC DATE:08/04/19 STATUS: DIS IN [facility] [address] [place] [address] END OF REPORT
== END 2019-08-04 16:59 | disposition home or self-care (01) | DRG 246 ==
LOC: D.OPS 00:07 → D.ER 00:07 → D.M2 00:07 → EDSTATUS 00:46 → D.OPS 17:39 → D.M2 17:42
PROVIDERS: Family Medicine; Internal Medicine Interventional Cardiology; ADMIT Family Medicine; ATTEND Family Medicine
PROC: 4A023N7 Measurement of Cardiac Sampling and Pressure, Left Heart, Percutaneous Approach (ICD-10-PCS; 2019-08-04)
PROC: B2111ZZ Fluoroscopy of Multiple Coronary Arteries using Low Osmolar Contrast (ICD-10-PCS; 2019-08-04)
PROC: B2151ZZ Fluoroscopy of Left Heart using Low Osmolar Contrast (ICD-10-PCS; 2019-08-04)
PROC: B2181ZZ Fluoroscopy of Left Internal Mammary Bypass Graft using Low Osmolar Contrast (ICD-10-PCS; 2019-08-04)
PROC: 027135Z Dilation of Coronary Artery, Two Arteries with Two Drug-eluting Intraluminal Devices, Percutaneous Approach (ICD-10-PCS; principal; 2019-08-04 09:00)
DX: I25.110 Atherosclerotic heart disease of native coronary artery with unstable angina pectoris (principal); N18.6 End stage renal disease; I12.0 Hypertensive chronic kidney disease with stage 5 chronic kidney disease or end stage renal disease; N25.81 Secondary hyperparathyroidism of renal origin; E78.5 Hyperlipidemia, unspecified; Z89.612 Acquired absence of left leg above knee; K21.9 Gastro-esophageal reflux disease without esophagitis; N40.0 Benign prostatic hyperplasia without lower urinary tract symptoms; F32.9 Major depressive disorder, single episode, unspecified; D63.1 Anemia in chronic kidney disease; Z86.73 Personal history of transient ischemic attack (TIA), and cerebral infarction without residual deficits

== ENCOUNTER 2019-08-17 15:42 | Inpatient (IN) | payer OTHER ==
[~2019-08-17] VITALS: Ht 165.1 cm; Wt 67.6 kg
--- NOTE | ~2019-08-17 | HEMODYNAMI ---
PATIENT:MARC CHADWICK MEDICAL RECORD: [id number] : [birth year] LOCATION[facility].[address] [facility] [id number] ADMISSION DATE: 08/17/19 Generatedon:08/18/201915:28 Patient name: MARC CHADWICK Patient #: [id number] SSN: [id number] : 1945 Date of study: 08/18/2019 Page: Of Hemodynamic Procedure Report Patient Data Patient Demographics Procedure consent was obtained First Name: MARC Gender: Male Last Name: NETTA : 1945 Middle Initial: S Age: 74 year(s) Patient #: [id number] Race: SSN: [id number] Additional ID: [id number] Contact details [address]: [address] [place] [address] State: [place] City: [place] Zip code: [address] Past Medical History Allergies Allergen Reaction Date Comments Reported Other 10/01/2014 METHADONE allergy Other 04/28/2016 Methadone allergy Other 09/22/2016 Methadone allergy Other 02/23/2018 methadone allergy Other 01/14/2019 methadone allergy Other 02/03/2019 methadone allergy Other 08/04/2019 methadone,amiltryptiline allergy Other 08/18/2019 amitriptyline, methadone allergy Admission Admission Data Admission Date: 08/17/2019 Admission Time: 15:42 Room #: D.2112 Height (in.): 65 BSA: 1.73 (m2) Height (cm.): 165.1 BMI: 24.13 (kg/m2) Weight (lbs.): 145 Weight (kg.): 65.77 Procedure Procedure Types Cath Procedure Peripheral Cath Diagnostic Procedure Lead Software Qa Engineer Peripheral Procedures Abd/Extremity Extremities Bilat Lower Extremity Procedure Description Procedure Date Procedure Date: 08/18/2019 Procedure Start Time: 13:36 Procedure Staff Name Function Olesya Swanson RT Senior Professional Services Consultant Dyllan Izaguirre RT Scrub Eron Miller Jr PEARLER Additional personnel Bianca Manley RN Nurse Sergo Olvera MD Performing Physician Procedure Data Cath Procedure Fluoroscopy Diagnostic fluoroscopy Total fluoroscopy Time: time: 36.1 min 36.1 min Diagnostic fluoroscopy Total fluoroscopy dose: 319 dose: 319 mGy mGy Contrast Material Contrast Material Type Amount (ml) Isovue 300 130 Procedure Medications Medication Administration Route Dosage Heparin Flush Bag added to field 3 bags (1000units/500ml NS) Lidocaine 1% added to field 20 Heparin Bolus I.V. 5000 units Refer to Anesthesia Notes for Sedation Medications Heparin Bolus I.V. 1000 units Nitroglycerin IC/IA I.A. 250 mcg Hemodynamics Rest BSA: 1.73 (m2) O2 Consumption: Estimated: 235.28 (ml/min) O2 Consumption indexed : Estimated:136 (ml/min/m) Pre Cath Intra NCS Post Cath Medications Time Medication Route Dose Verified Delivered Reason Notes Eff ectiveness by by 13:55:58 Heparin Bolus I.V. 5000 M J Long Bianca Per units MD Manley RN physician 13:56:45 Heparin Flush added 3 bags M J Long M J Long used for Bag to MD UP procedure (1000units/500ml field NS) 13:56:57 Lidocaine 1% added 20ml M J Long M J Long for local to vial MD UP anesthetic field 13:57:25 Refer to M J Long Bianca Anesthesia Notes MD Manley RN for Sedation Medications 14:35:01 Heparin Bolus I.V. 1000 M J Long Bianca Per units MD Manley RN physician 15:07:30 Nitroglycerin I.A. 250mcg M J Long M J Long IC/IA MD UP Procedure Log Time Note 13:10:30 Patient Height : 65 inches 13:10:35 Patient Weight : 145 lbs 13:11:30 Time tracking: Regular hours (M-F 7:00 - 5:00) 13:12:04 Plan of Care:Hemodynamics will remain stable., Cardiac rhythm will remain stable., Comfort level will be maintained., Respiratory function will remain adequate., Patient/ family verbilizes understanding of procedure., Procedure tolerated without complication., Recovers from procedure without complications.. 13:12:13 Patient received from Med II to IR Alert and oriented. Tansferred to table in Supine position. 13:12:17 Signed procedure consent form obtained from patient. 13:12:23 H&P Date Dictated: 08/18/2019 Within 30 days and on chart.. 13:12:26 Pre-procedure instructions explained to patient. 13:12:27 Pre-op teaching completed and patient verbalized understanding. 13:12:44 Family unavailable. 13:12:47 Patient NPO since Midnight. 13:13:56 Patient allergic to Other allergyamitriptyline, methadone 13:14:08 Is the patient allergic to Iodine/contrast media? No. 13:14:12 Is patient on blood thinner?Yes 13:14:17 ACC The patient was administered the following blood thiners within the last 24 hours: ACCHeparin 13:14:26 Patient diabetic? Yes. 13:14:28 - 13:14:30 ----Pre-sedation anethsthesia assessment.----see anesthesia notes for monitoring of patient during procedure 13:15:56 Pre procedure: right dorsailis pedis pulse Doppler 13:16:01 Pre procedure: right posterior tibial pulse Doppler 13:16:26 Left groin area was prepped with chlora-prep and draped in sterile fashion 13:16:32 - 13:16:40 5) <15 or on dialysis Very severe, or end stage kidney failure. 13:16:46 Fire Safety Assessment: A--An alcohol-based skin anteseptic being used preoperatively., C--Open oxygen or nitrous oxide is being used. 13:16:56 - 13:17:02 Use device set IR Diagnostic 13:17:04 Tegaderm 4 x 4 (1626W) opened to sterile field. 13:17:05 Sterile Angiographic Pack opened to sterile field. 13:17:07 Bag Decanter (2002S) opened to sterile field. 13:17:08 ACIST Manifold (38759) opened to sterile field. 13:17:09 ACIST Hand Control (21823) opened to sterile field. 13:17:10 ACIST Syringe (28634) opened to sterile field. 13:17:25 SHEATH 5FR Singer (LVZ769) opened to sterile field. 13:17:51 TUBING Contrast Injection High Pressure (CMS561L) opened to sterile field. 13:17:52 DOC .035 wire (I69384) opened to sterile field. 13:17:53 Micropuncture VSI 4FR kit opened to sterile field. 13:24:55 DUQUE 260 wire (Z89762) opened to sterile field. 13:25:07 Angiodynamics Omniflush 5Fr 65cm (22488388) opened to sterile field. 13:35:21 - 13:35:26 --------ALL STOP TIME OUT------ 13:35:26 Physician arrived 13:35:27 Final Timeout: patient, procedure, and site verified with staff and physician. All members of the team are in agreement. 13:36:12 Full Disclosure recording started 13:36:12 Procedure started. 13:36:19 Local anesthetic to left femerol artery with Lidocaine 1% by Sergo Olvera MD.INITIAL ACCESS ONLY 13:44:59 GLIDE WIRE ANGLE 180cm (CR9862) opened to sterile field. 13:47:14 GLIDE CATHETER 5FR ANGLED 65cm (CG507) opened to sterile field. 13:52:27 SHEATH 6FR Destination (RSR01) opened to sterile field. 13:52:51 CHOICE PT Extra Support J 300cm guide wire ([id number]) opened to steril e field. 13:55:29 CXI SUPPORT .018 150CM STR catheter (V99418) opened to sterile field. 13:55:58 Heparin Bolus 5000 units I.V. was administered by Bianca Manley RN; Per physician; Verbal order read back and verified. 13:56:15 CXI SUPPORT .035 135 CM STR catheter (G56024) opened to sterile field. 13:56:45 Heparin Flush Bag (1000units/500ml NS) 3 bags added to field was administered by Sergo Olvera MD; used for procedure; Verbal order read back and verified. 13:56:57 Lidocaine 1% 20ml vial added to field was administered by Sergo Olvera MD; for local anesthetic; Verbal order read back and verified. 13:57:25 Refer to Anesthesia Notes for Sedation Medications was administered by Bianca Manley RN; ; Verbal order read back and verified. 14:04:06 INFLATOR BasixTOUCH (QL5585) opened to sterile field. 14:05:01 Inflate balloon Inflation number: 1 A NANOCROSS ELITE 2.5 X 120 X 150 ([id number]) was prepped and advanced across the Undefined1 , then inflated . 14:07:30 SPIDER EMBOLIC PROTECTION DEVICE 3MM ([id number]) opened to sterile field. 14:13:06 [place] 1 Small Atherectomy catheter (H1S) opened to sterile field. 14:20:08 a 5x200 dcb was used in the SFA 14:35:01 Heparin Bolus 1000 units I.V. was administered by Bianca Manley RN; Per physician; Verbal order read back and verified. 14:37:57 CXI SUPPORT .035 135 CM STR catheter (X49380) opened to sterile field. 15:07:30 Nitroglycerin IC/IA 250mcg I.A. was administered by Sergo Olvera MD; ; Verbal order read back and verified. 15:10:40 Inflate balloon Inflation number: 1 A NANOCROSS ELITE 2 X 4 X 150 ([id number]( was prepped and advanced across the Undefined2 , then inflated . 15:11:30 ROADRUNNER .035 260 glide wire (Q78070) opened to sterile field. 15:11:31 CHOICE PT Extra Support J 300cm guide wire (8539006V5) opened to steril e field. 15:11:39 SHEATH 6FR Singer (FXD128) opened to sterile field. 15:11:47 EXOSEAL 6Fr (EX600) opened to sterile field. 15:16:12 Procedure ended.(Physican Out) 15:17:50 Fluoroscopy time 36.10 minutes. 15:17:57 Flurop Dose total: 319 15:17:57 Fluoroscopy dose: 319 mGy 15:18:05 Contrast amount:Isovue 300 130ml. 15:18:08 Procedure and supply charges have been captured, reviewed, submitted an d are correct. 15:19:55 Report given to Sverve. 15:20:27 Full Disclosure recording stopped Intervention Summary Intervention Notes Time ActionType Lesion and Equipment Used Action# Pressure Duration Attributes 14:05:01 Inflate Undefined1 NANOCROSS ELITE 1 0 00:00 balloon 2 X 120 X 150 ([id number]) 15:10:40 Inflate Undefined2 NANOCROSS ELITE 1 0 00:00 balloon 2 X 4 X 150 ([id number]( Device Usage Item Name Manufacture Quantity Catalog Number Hospital Part Curr ent Minimal Lot# / Charge Number Stock Stock Serial# Code Tegaderm 4 x 4 3M 1 1626W 084743 713434 6148 42 5 (1626W) Sterile Cardinal 1 [id number] 515211 3962 19 5 Angiographic Health Pack Bag Decanter Microtek 1 2001S 726739 97175 9847 06 5 (2001S) Medical Inc. ACIST Manifold Acist Medical 1 10526 488526 574093 5475 48 5 (14791) Systems Inc ACIST Hand Acist Medical 1 31977 049602 057961 0603 32 5 Control (05185) Systems Inc ACIST Syringe Acist Medical 1 51921 885583 835535 1237 01 20 (02209) Systems Inc SHEATH 5FR Terumo 1 MYL460 526407 998428 0806 16 5 Singer (TVW665) TUBING Contrast [facility] Medical 1 VDB306U 197133 678477 8387 44 5 Injection High Pressure (ERA697A) DOC .035 wire [employer] [facility] 1 I90871 048013 3842 91 5 (E68803) Micropuncture VSI VASCULAR 1 7266V 533699 6323 92 5 VSI 4FR kit SOLUTIONS DUQUE 260 wire [employer] 1 B47765 600576 69459 9994 66 5 (V02993) Angiodynamics Angiodynamics 1 13387520 805797 885175 7310 02 5 Omniflush 5Fr 65cm (22032855) GLIDE WIRE ANGLE Terumo 1 XZ7709 998586 207909 8874 24 5 180cm (KA5061) GLIDE CATHETER Terumo 1 CG507 316934 3321 26 5 5FR ANGLED 65cm (CG507) SHEATH 6FR Terumo 1 RSR01 509315 55694 9995 24 5 Destination (RSR01) CHOICE PT Extra [place] 2 [id number] 539054 038627 0793 34 5 Support J 300cm Scientific guide wire (5095633R7) CXI SUPPORT .018 [employer] 1 N05707 347847 375691 8701 62 5 7753611 150CM STR catheter (V63419) CXI SUPPORT .035 [employer] Digital 2 J76397 501829 093785 2934 86 5 [id number] 135 CM STR [id number] catheter (B26231) INFLATOR [facility] 1 CT1555 519000 813528 5223 54 5 BasixTOUCH (CL0510) NANOCROSS ELITE Medtronic 1 [id number] 776839 810013 6005 96 1 2 X 120 X 150 ([id number]) SPIDER EMBOLIC Medtronic 1 [id number]-[id number] 041711 6014 76 5 PROTECTION DEVICE 3MM ([id number]) TURBOHAWK 1 Medtronic 1 H1-S 105170 7176314 7198 61 5 Small Atherectomy catheter (H1S) NANOCROSS ELITE Medtronic 1 [id number] 185404 132396 8447 94 1 2 X 4 X 150 ([id number]( ROADRUNNER .035 [employer] 1 M98080 265260 518757 6566 59 5 260 glide wire (B40006) SHEATH 6FR Terumo 1 LJZ115 740020 189895 5774 29 40 Singer (ETM497) EXOSEAL 6Fr Cardinal 1 EX600 211452 462065 0219 26 10 85983376 (EX600) Health Signature Audit [place] Stage Time Signature Unsigned Intra-Procedure 08/18/2019 Olesya Swanson RT(R) 3:20:17 PM RT(R) 08/18/2019 3:26:14 PM Intra-Procedure 08/18/2019 Olesya Swanson 3:27:58 PM RT(R) [facility] [address] [facility] [place] [address]
--- NOTE | 2019-08-17 13:40 | NUR ---
AND UZIEL FROM IR AT BEDSIDE ASSESSING PTS FOOT. NEW ORDERS OBTAINED. WILL CPOC.
[~2019-08-17 15:42] MED LIST changes: +NYSTATIN OINTME15 GM TOPICAL
--- NOTE | 2019-08-17 16:40 | NUR ---
AND UZIEL FROM IR AT BEDSIDE ASSESSING PTS FOOT. NEW ORDERS OBTAINED. WILL CPOC.
[2019-08-17] MEDS ORDERED: LIPITOR10 MG PO (16:51)
--- NOTE | 2019-08-17 17:00 | NUR ---
BLOOD DRAWN ORDERED. ADMISSION WORKUP BEING COMPLETED. 20 GUAGE PIV INSERTED TO L.FA X4 STICKS. TEGADERM SECURED TO SKIN, CDI.
[2019-08-17 17:06] LABS: BASOPHILS 0.2 % (0-2); EOSINOPHILS 5.9 % (0-7); HEMATOCRIT 36.6 % (42.0-54.0); IMMATURE GRANULOCYTES 0.2 % (0-5); MCH 29.7 pg (26.0-34.0); MCHC 30.1 g/dL (31.0-37.0); MCV 98.9 fL (80.0-100.0); MEAN PLATELET VOLUME 9.4 fL (7.4-10.4); MONOCYTES 11.3 % (2-11); NEUTROPHILS 68.4 % (40-80); PLATELET COUNT 148 10x3/uL (130-400); WBC 4.1 10x3/uL (4.8-10.8)
[2019-08-17 17:15] LABS: INR 1.2 (0.85-1.17); PROTIME 15.1 SECONDS (11.6-15.0)
[2019-08-17 17:45] LABS: ANION GAP 13.1 mmol/L (8-16); CALCIUM 8.6 mg/dL (8.5-10.1); CARBON DIOXIDE 29.8 mmol/L (21.0-32.0); CREATININE - SERUM 3.7 mg/dL (0.6-1.3); POTASSIUM - SERUM 3.9 mmol/L (3.5-5.1)
[2019-08-17 17:51] LABS: ALBUMIN 3.4 g/dL (3.4-5.0); BILIRUBIN - TOTAL 0.81 mg/dL (0.2-1.3); PHOSPHOROUS 3.1 mg/dL (2.5-4.9); PROTEIN - SERUM 6.9 g/dL (6.4-8.2)
--- NOTE | 2019-08-17 18:15 | NUR ---
INITIATED PTS HEPARIN DRIP PER PROTOCOL. BOLUS DOSE GIVEN R/T PTT LEVEL. WILL ORDER FOR REDRAW IN 6HRS PER PROTOCOL.
[2019-08-17 18:33] VITALS: BMI 24.2
--- NOTE | 2019-08-17 18:33 | NUR ---
PT REMAINS NPO WAITING FOR CT SCAN. WILL CTM.
--- NOTE | 2019-08-17 19:00 | NUR ---
CT COMPLETED AND PT ABLE TO EAT DINNER. WILL GIVE BEDSIDE SHIFT REPORT AND PASS ON CARE TO NIGHTSHIFT NURSE.
--- NOTE | 2019-08-17 19:30 | NUR ---
REPORT RECEIVED, WILL CONTINUE POC. PATIENT IS RESTING WITH EYES CLOSED ON LT SIDE. NO S/S OF DISTRESS OBSERVED, RR EVEN AND UNLABORED ON ROOM AIR. PIV TO LT FA WITH HEPARIN INFUSING @ 8ML/HR. PATIENT HAS LT AKA, RT LEG HAS POOR CIRCULATION WITH DELAYED CAP REFILL. PATIENT DENIES NEEDS AT THIS TIME. CL IN REACH, BED LOCKED AND LOWERED. WILL CTM.
[2019-08-17 20:18] VITALS: BP 146/71
--- NOTE | 2019-08-17 20:38 | NUR ---
PT REQUESTED HIS DINNER TRAY BE HEATED UP DUE TO HIM BEING IN CT WHEN IT WAS DELIVERED. ORGAN RECOVERY COORDINATOR HEATED PATIENTS FOOD, HE THEN SAID HE DIDN'T LIKE IT AND HE WAS OFFERED A SANDWICH TRAY. ORGAN RECOVERY COORDINATOR BROUGHT SANDWICH TRAY. WE REPOSITIONED PATIENT IN THE BED SO HE COULD EAT. PATIENT DENIES FURTHER NEEDS AT THIS TIME. CL IN REACH.
[2019-08-18] VITALS (7 sets, daily range): BP systolic 120–157; BP diastolic 53–74; Ht 165.1 cm; Wt 67.6 kg
--- NOTE | 2019-08-18 04:28 | NUR ---
RESTING WITH EYES CLOSED, RESPERATIONS EVEN, NO S/S DISTRESS NOTED.
[2019-08-18 04:52] LABS: BASOPHILS 0.3 % (0-2); EOSINOPHILS 6.7 % (0-7); HEMATOCRIT 37.5 % (42.0-54.0); HEMOGLOBIN 11.1 g/dL (13.5-17.5); IMMATURE GRANULOCYTES 0.3 % (0-5); LYMPHOCYTES 28.2 % (15-50); MCH 29.7 pg (26.0-34.0); MCHC 29.6 g/dL (31.0-37.0); MCV 100.3 fL (80.0-100.0); MEAN PLATELET VOLUME 9.3 fL (7.4-10.4); MONOCYTES 9.5 % (2-11); PLATELET COUNT 154 10x3/uL (130-400); RBC 3.74 10x6/uL (4.20-6.10); RDW 16.2 % (11.5-14.5); WBC 3.3 10x3/uL (4.8-10.8)
[2019-08-18 05:24] LABS: ALBUMIN 3.4 g/dL (3.4-5.0); BILIRUBIN - TOTAL 0.59 mg/dL (0.2-1.3); CARBON DIOXIDE 31.6 mmol/L (21.0-32.0); POTASSIUM - SERUM 3.6 mmol/L (3.5-5.1); PROTEIN - SERUM 7.2 g/dL (6.4-8.2)
[2019-08-18 05:25] LABS: INR 1.22 (0.85-1.17); PHOSPHOROUS 4.6 mg/dL (2.5-4.9); PROTIME 15.3 SECONDS (11.6-15.0)
[2019-08-18 05:26] LABS: APTT 67.1 SECONDS (22.8-39.4)
--- NOTE | 2019-08-18 07:25 | NUR ---
RECIEVED REPORT. PATIENT IS ALERT AND DENIES ANY NEEDS AT THIS TIME.
--- NOTE | 2019-08-18 08:37 | NUR ---
CALLED AND NOTIFIED RADIOLOGY THAT THIS PATIENT IS ON HEPARIN DRIP. RADIOLOGY ACKNOWLEDGED.
--- NOTE | 2019-08-18 13:48 | NUR ---
PATIENT IS IN HIS PROCEDURE AT THIS TIME.
--- NOTE | 2019-08-18 14:36 | NUR ---
PATIENT IS STILL HAVING HIS PROCEDURE.
--- NOTE | 2019-08-18 16:26 | NUR ---
PATIENT HAS RETURNED FROM ANGIOGRAM. INCISION SITE IS IN THE LEFT GROIN. THERE IS A PALPABLE PULSE IN THE LEFT FOOT. PATIENT IS ALERT AND AWAKE. VITAL SIGNS ARE STABLE. INCISION SITE IS CLEAN DRY AND INTACT WITH NO BLEEDING AND NO HEMATOMA NOTED. NO FLUIDS GOING IN AT THIS TIME. PATIENT MUST LAY FLAT FOR 4 HOURS. HIS BLOOD SUGAR IS 90, AND SO WILL BRING HIM SOME JUICE. HEPARIN DRIP WAS DISCONTINUED.
--- NOTE | 2019-08-18 16:58 | MORECARE ---
CASE MANAGEMENT DISCHARGE SUMMARY PATIENT: MARC CHADWICK UNIT: [id number] ADM DATE: 08/17/19 AGE: 74 : [birth year] SEX: M ROOM/BED: D.2112 AUTHOR: RADHA MCGRATH PHYSICIAN: REFERRING PHYSICIAN: EMA GOMEZ MD DATE OF SERVICE: 08/18/19 Discharge Plan Patient Name: MARC CHADWICK [facility] [facility] 1945 Planned Disposition: Fdc Facility Anticipated Discharge Date: Discharge Date: Expected LOS: Initial Reviewer: [email or web address] Initial Review Date: 08/17/2019 Generated: 08/18/19 5:57 pm DCPIA - Discharge Planning Initial Assessment Updated by [email or web address]: Elie Broderick on 08/18/19 4:57 pm * Is the patient Alert and Oriented? Yes * How many steps to enter\exit or inside your home? RAMP * [facility] * Preadmission Environment Home with Family * ADLs Independent * Equipment Power Chair or Electric Scooter Wheelchair * Other Equipment PT NOT USING POWER CHAIR, STATES IT IS TOO FAST. [facility] - MEDICAL EQUIPMENT PROVIDER * List name and contact numbers for known caregivers / representatives who currently or will assist patient after discharge: JULIO C PLEITEZ, FRIEND, ROCIO PIPER, FRIEND, * Verbal permission to speak to the caregivers and representatives has been obtained from the patient. N/A * Community resources currently utilized Other * Please name any agencies selected above. [facility], [facility], MWF, 1100, [facility]SP[facility] * Additional services required to return to the preadmission environment? Yes * Can the patient safely return to the preadmission environment? Yes * Has this patient been hospitalized within the prior 30 days at any hospital? Yes Patient Name: MARC CHADWICK Page 14667 at 1659 All edits/amendments must be made on the electronic document DICTATION DATE: 08/18/191656 ART OBJECTS SALESPERSON: JANN 08/18/191656 RPT#: [id number] DC DATE: STATUS: ADM IN [facility] [address] [facility] [place] [address] END OF REPORT
--- NOTE | 2019-08-18 17:16 | MORECARE ---
CASE MANAGEMENT DISCHARGE SUMMARY PATIENT: MARC CHADWICK UNIT: [id number] ADM DATE: 08/17/19 AGE: 74 : 47 SEX: M ROOM/BED: D.2112 AUTHOR: RADHA MCGRATH PHYSICIAN: REFERRING PHYSICIAN: EMA GOMEZ MD DATE OF SERVICE: 08/18/19 Discharge Plan Patient Name: MARC CHADWICK Facility: [facility]:[place] : 1945 Planned Disposition: Senior Care Facility Anticipated Discharge Date: Discharge Date: Expected LOS: Initial Reviewer: [id number] Initial Review Date: 08/17/2019 Generated: 08/18/19 6:15 pm Comments DCP- Discharge Planning Updated by [email or web address]: Elie Broderick on 08/18/19 4:[address] Patient Name: MARC CHADWICK Admission Status: Elective Accout number: [id number] Admission Date: 08-17-2019 : 1945 Admission Diagnosis: Attending: EMA GOMEZ Current LOS: 1 Anticipated DC Date: Planned Disposition: Senior Care Facility Primary Insurance: [employer] PLANNED EXTERNAL PROVIDER: TO BE DETERMINED Discharge Planning Comments: CM MET WITH PT IN ROOM TO DISCUSS DISCHARGE PLANNING AND NEEDS. PT REPORTS LIVING AT HOME INDEPENDENTLY AND HAS A FRIEND, JESUS DUNCAN, WHO LIVES WITH PT. JESUS ASSISTS WITH CLEANING, COOKING AND LAUNDRY. PT HAS POWER CHAIR THAT HE NO LONGER USES IT IS "TOO FAST"; PT HAS MANUAL WHEELCHAIR. PT HAS HOME CARE THAT JUST STARTED FROM [place] AND DOES NOT KNOW WHICH COMPANY THEY SENT OUT. PT HAS NOT BEEN TAKING HIS HOME MEDICATIONS [facility] IS [facility]ILL [facility] TO GET THEM TO [facility] FOR THE PAST TWO WEEKS. PT HAS BEEN TO HIS PRIMARY CARE VA DOCTOR AT [facility] TWICE IN THE PAST TWO WEEKS. CM DISCUSSED AVAILABILITY OF HOME HEALTH, REHAB SERVICES AND MEDICAL EQUIPMENT. PT THINKS HE MIGHT NEED REHAB AND ASKED IF HE CAN HAVE REHAB AT THE [facility]. PT DOES WANT TO BE PLACED ON VA TRANSFER LIST. PT STATES IF HE GOES HOME, HE WILL GO IN A TAXICAB AND HAS FUNDS TO PAY FOR TRANSPORTATION. CM CALLED [facility], , SPOKE TO ROSEY AND PLACED PT ON VA TRANSFER LIST, NO BEDS AVAILABLE NOW. CM CALLED [place] [facility], , SPOKE TO YOVANI SCALES WHO ADVISED THEY DO NOT ACCEPT DIALYSIS PATIENTS IN THEIR INPATIENT PROGRAM, PT MAY QUALIFY FOR SKILLED COMMUNITY CARE PROGRAM BUT WOULD HAVE TO TRANSFER TO [place] [facility] FOR 14 DAY QUARANTINE PRIOR TO ENTERING. SHE ALSO SUGGESTED COMMUNITY CARE HOME FACILITY. CM CALLED MAIRA MONTEMAYOR, [facility], , DISCUSSED PT AND NEEDS; IF PT WILL GO [facility] C[facility] HOME AND IF [facility] WILL NOT [facility], THE CLOSEST TWO ARE [facility] IN [place] AND [facility] IN [place]. PT WILL REQUIRE PHYSICAL AND OCCUPATIONAL THERAPY EVALUATONS TO DETERMINE NEEDS FOR REHAB. CM TO FOLLOW AND ASSIST WITH REHAB PLACEMENT IF NEEDED. Soybean Grower: Elie Broderick DCPIA - Discharge Planning Initial Assessment Updated by [id number]: Elie Broderick on 08/18/19 4:57 pm * Is the patient Alert and Oriented? Yes * How many steps to enter\\exit or inside your home? RAMP * PCP [place] [facility] * [facility] * Preadmission Environment Home with Family * ADLs Independent * Equipment Power Chair or Electric Scooter Wheelchair * Other Equipment PT NOT USING POWER CHAIR, STATES IT IS TOO FAST. VA - MEDICAL EQUIPMENT PROVIDER * List name and contact numbers for known caregivers / representatives who currently or will assist patient after discharge: JULIO C PLEITEZ, FRIEND, ROCIO PIPER, FRIEND, * Verbal permission to speak to the caregivers and representatives has been obtained from the patient. N/A * Community resources currently utilized Other * Please name any agencies selected above. OUTPATIENT DIALYSIS, [facility], MWF, 1100, [facility] * Additional services required to return to the preadmission environment? Yes * Can the patient safely return to the preadmission environment? Yes * Has this patient been hospitalized within the prior 30 days at any hospital? Yes Last DP export: 08/18/19 3:58 p Patient Name: MARC CHADWICK Page 00498 at 1716 All edits/amendments must be made on the electronic document DICTATION DATE: 08/18/191714 PARKING MANAGER: JANN 08/18/191714 RPT#: [id number] DC DATE: STATUS: ADM IN [facility] [address] [place] [address] END OF REPORT
--- NOTE | 2019-08-18 17:24 | NUR ---
TALKED WITH SHANIA HOLLIS FOR PATRICIA. SHE ORDERED TO RESTART LOPRESSOR AND LIPITOR. SHE SAID TO CALL DR RAMIREZ ABOUT THE HEPARIN. CALLED DR RAMIREZ ABOUT THE HEPARIN, AND HE SAID RESTART HEPARIN AT 900 UNITS PER HOUR AND MAINTAIN PTT OF 60-80 THERAPUTIC RANGE. CHECK IN THE MORNING. GIVE A BABY ASPIRN AT 2000 TONIGHT. ALSO, PATIENT NEEDS TO LAY FLAT FOR 6 HOURS, MUST KEEP LEFT LEG STRIGHT FOR 6 HOURS. HE ALSO SAID THE PATIENT CAN EAT. WILL CONTINUE TO MONITOR CLOSELY.
--- NOTE | 2019-08-18 21:06 | NUR ---
EVENING ROUNDS COMPLETED. AFVSS. AAOX3. PT APPEARS LETHARGIC. DRESSING TO LEFT GROIN INTACT. PT FOUND LAYING ON HIS SIDE. EDUCATE PT ON THE NEED TO LAY FLAT ON HIS BACK. PT DENIES PAIN AT THIS TIME. HEP GTT INFUSING @9MLS/HR. WILL CPOC. CL WITHIN REACH.
[2019-08-19 00:12] VITALS: BP 113/44
[2019-08-19 04:30] VITALS: BP 127/58
[2019-08-19 04:45] LABS: BASOPHILS 0.4 % (0-2); EOSINOPHILS 4.1 % (0-7); HEMATOCRIT 37.4 % (42.0-54.0); HEMOGLOBIN 10.7 g/dL (13.5-17.5); IMMATURE GRANULOCYTES 0.2 % (0-5); LYMPHOCYTES 12.8 % (15-50); MCH 29.2 pg (26.0-34.0); MCHC 28.6 g/dL (31.0-37.0); MCV 102.2 fL (80.0-100.0); MEAN PLATELET VOLUME 10.2 fL (7.4-10.4); MONOCYTES 7.5 % (2-11); PLATELET COUNT 160 10x3/uL (130-400); RBC 3.66 10x6/uL (4.20-6.10); RDW 16.8 % (11.5-14.5)
[2019-08-19 04:58] LABS: WBC 5.6 10x3/uL (4.8-10.8)
[2019-08-19 05:05] LABS: ALBUMIN 3.5 g/dL (3.4-5.0); BILIRUBIN - TOTAL 0.58 mg/dL (0.2-1.3); CALCIUM 9.2 mg/dL (8.5-10.1); CARBON DIOXIDE 26.2 mmol/L (21.0-32.0); PROTEIN - SERUM 7.3 g/dL (6.4-8.2)
[2019-08-19 05:06] LABS: ANION GAP 17.3 mmol/L (8-16); CREATININE - SERUM 6.9 mg/dL (0.6-1.3); PHOSPHOROUS 7.1 mg/dL (2.5-4.9); POTASSIUM - SERUM 4.5 mmol/L (3.5-5.1)
[2019-08-19 05:08] LABS: INR 1.18 (0.85-1.17)
[2019-08-19 05:09] LABS: APTT 55.9 SECONDS (22.8-39.4)
--- NOTE | 2019-08-19 07:15 | NUR ---
RECEIVED PT IN BED EYES CLOSED RESP UNLABORED SKIN W/D COLOR WNL NAD NOTED
[2019-08-19 10:19] VITALS: BP 135/60
--- NOTE | 2019-08-19 10:44 | MORECARE ---
CASE MANAGEMENT DISCHARGE SUMMARY PATIENT: MARC CHADWICK UNIT: [id number] ADM DATE: 08/17/19 AGE: 74 : 47 SEX: M ROOM/BED: D.2112 AUTHOR: RADHA MCGRATH PHYSICIAN: REFERRING PHYSICIAN: EMA GOMEZ MD DATE OF SERVICE: 08/19/19 Discharge Plan Patient Name: MARC CHADWICK Facility: [facility]:[place] : 1945 Planned Disposition: Residential Facility Anticipated Discharge Date: 08/20/19 Discharge Date: Expected LOS: 3 Initial Reviewer: [email or web address] Initial Review Date: 08/17/2019 Generated: 08/19/19 11:43 am Comments DCP- Discharge Planning Updated by [email or web address]: Elie Broderick on 08/18/19 4:[address] Patient Name: MARC CHADWICK Admission Status: Elective Accout number: [id number] Admission Date: 08-17-2019 : 1945 Admission Diagnosis: Attending: EMA GOMEZ Current LOS: 1 Anticipated DC Date: Planned Disposition: Residential Facility Primary Insurance: [employer] ADMINISTRATION PLANNED EXTERNAL PROVIDER: TO BE DETERMINED Discharge Planning Comments: CM MET WITH PT IN ROOM TO DISCUSS DISCHARGE PLANNING AND NEEDS. PT REPORTS LIVING AT HOME INDEPENDENTLY AND HAS A FRIEND, JESUS DUNCAN, WHO LIVES WITH PT. JESUS ASSISTS WITH CLEANING, COOKING AND LAUNDRY. PT HAS POWER CHAIR THAT HE NO LONGER USES IT IS "TOO FAST"; PT HAS MANUAL WHEELCHAIR. PT HAS HOME CARE THAT JUST STARTED FROM THE [place] AND DOES NOT KNOW WHICH COMPANY THEY SENT OUT. PT HAS NOT BEEN TAKING HIS HOME MEDICATIONS THE VA IS STILL TRYING TO GET THEM TO HIM FOR THE PAST TWO WEEKS. PT HAS BEEN TO HIS PRIMARY CARE VA DOCTOR AT [facility] TWICE IN THE PAST TWO WEEKS. CM DISCUSSED AVAILABILITY OF HOME HEALTH, REHAB SERVICES AND MEDICAL EQUIPMENT. PT THINKS HE MIGHT NEED REHAB AND ASKED IF HE CAN HAVE REHAB AT THE [facility]. PT DOES WANT TO BE PLACED ON VA TRANSFER LIST. PT STATES IF HE GOES HOME, HE WILL GO IN A TAXICAB AND HAS FUNDS TO PAY FOR TRANSPORTATION. CM CALLED [facility], , SPOKE TO ROSEY AND PLACED PT ON VA TRANSFER LIST, NO BEDS AVAILABLE NOW. CM CALLED [place] [facility], , SPOKE TO YOVANI SCALES WHO ADVISED THEY DO NOT ACCEPT DIALYSIS PATIENTS IN THEIR INPATIENT PROGRAM, PT MAY QUALIFY FOR SKILLED COMMUNITY CARE PROGRAM BUT WOULD HAVE TO TRANSFER TO [place] [facility] FOR 14 DAY QUARANTINE PRIOR TO ENTERING. SHE ALSO SUGGESTED COMMUNITY CUSTODIAL FACILITY. CM CALLED MAIRA MONTEMAYOR, [facility] L[facility], , DISCUSSED PT AND NEEDS; IF PT WILL GO [facility] CUSTODIAL AND IF [facility] WILL NOT ACCE[facility], THE CLOSEST TWO ARE [facility] IN [place] AND [facility] IN [place]. PT WILL REQUIRE PHYSICAL AND OCCUPATIONAL THERAPY EVALUATONS TO DETERMINE NEEDS FOR REHAB. CM TO FOLLOW AND ASSIST WITH REHAB PLACEMENT IF NEEDED. Sql Ssrs Ssis Developer: Elie Broderick DCPIA - Discharge Planning Initial Assessment Updated by [email or web address]: Elie Broderick on 08/18/19 4:57 pm * Is the patient Alert and Oriented? Yes * How many steps to enter\\exit or inside your home? RAMP * [facility] * Preadmission Environment Home with Family * ADLs Independent * Equipment Power Chair or Electric Scooter Wheelchair * Other Equipment PT NOT USING POWER CHAIR, STATES IT IS TOO FAST. VA - MEDICAL EQUIPMENT PROVIDER * List name and contact numbers for known caregivers / representatives who currently or will assist patient after discharge: JULIO C PLEITEZ, FRIEND, ROCIO PIPER, FRIEND, * Verbal permission to speak to the caregivers and representatives has been obtained from the patient. N/A * Community resources currently utilized Other * Please name any agencies selected above. OUTPATIENT DIALYSIS, [facility], MWF, 1100, [facility] * Additional services required to return to the preadmission environment? Yes * Can the patient safely return to the preadmission environment? Yes * Has this patient been hospitalized within the prior 30 days at any hospital? Yes Last DP export: 08/18/19 4:15 p Patient Name: MARC CHADWICK Page 26697 at 1044 All edits/amendments must be made on the electronic document DICTATION DATE: 08/19/19 1043 OUTREACH DIRECTOR: JANN 08/19/19 1043 RPT#: [id number] DC DATE: STATUS: ADM IN [facility] [address] [place] [address] END OF REPORT
--- NOTE | 2019-08-19 11:29 | MORECARE ---
CASE MANAGEMENT DISCHARGE SUMMARY PATIENT: MARC CHADWICK UNIT: [id number] ADM DATE: 08/17/19 AGE: 74 : 47 SEX: M ROOM/BED: D.2112 AUTHOR: RADHA MCGRATH PHYSICIAN: REFERRING PHYSICIAN: EMA GOMEZ MD DATE OF SERVICE: 08/19/19 Discharge Plan Patient Name: MARC CHADWICK Facility: [facility]:[place] : 1945 Planned Disposition: Intermediate Facility Anticipated Discharge Date: 08/20/19 Discharge Date: Expected LOS: 3 Initial Reviewer: [id number] Initial Review Date: 08/17/2019 Generated: 08/19/19 12:28 pm Comments DCP- Discharge Planning Updated by [id number]: Elie Broderick on 08/18/19 4:[address] Patient Name: MARC CHADWICK Admission Status: Elective Accout number: [id number] Admission Date: 08-17-2019 : 1945 Admission Diagnosis: Attending: EMA GOMEZ Current LOS: 1 Anticipated DC Date: Planned Disposition: Intermediate Facility Primary Insurance: [employer] ADMINISTRATION PLANNED EXTERNAL PROVIDER: TO BE DETERMINED Discharge Planning Comments: CM MET WITH PT IN ROOM TO DISCUSS DISCHARGE PLANNING AND NEEDS. PT REPORTS LIVING AT HOME INDEPENDENTLY AND HAS A FRIEND, JESUS DUNCAN, WHO LIVES WITH PT. JESUS ASSISTS WITH CLEANING, COOKING AND LAUNDRY. PT HAS POWER CHAIR THAT HE NO LONGER USES IT IS "TOO FAST"; PT HAS MANUAL WHEELCHAIR. PT HAS HOME CARE THAT JUST STARTED FROM THE [place] AND DOES NOT KNOW WHICH COMPANY THEY SENT OUT. PT HAS NOT BEEN TAKING HIS HOME MEDICATIONS THE VA IS STILL TRYING TO GET THEM TO HIM FOR THE PAST TWO WEEKS. PT HAS BEEN TO HIS PRIMARY CARE VA DOCTOR AT [facility] TWICE IN THE PAST TWO WEEKS. CM DISCUSSED AVAILABILITY OF HOME HEALTH, REHAB SERVICES AND MEDICAL EQUIPMENT. PT THINKS HE MIGHT NEED REHAB AND ASKED IF HE CAN HAVE REHAB AT THE VA. PT DOES WANT TO BE PLACED ON VA TRANSFER LIST. PT STATES IF HE GOES HOME, HE WILL GO IN A TAXICAB AND HAS FUNDS TO PAY FOR TRANSPORTATION. CM CALLED [facility], , SPOKE TO ROSEY AND PLACED PT ON VA TRANSFER LIST, NO BEDS AVAILABLE NOW. CM CALLED [place] [facility], , SPOKE TO YOVANI SCALES WHO ADVISED THEY DO NOT ACCEPT DIALYSIS PATIENTS IN THEIR INPATIENT PROGRAM, PT MAY QUALIFY FOR SKILLED COMMUNITY CARE PROGRAM BUT WOULD HAVE TO TRANSFER TO [place] [facility] F[facility]ILITY FOR 14 DAY QUARANTINE PRIOR TO ENTERING. SHE ALSO SUGGESTED COMMUNITY CUSTODIAL FACILITY. CM CALLED MAIRA MONTEMAYOR, [facility] LIAISON, , DISCUSSED PT AND NEEDS; IF PT WILL GO [facility] CUSTODIAL AND IF [facility] WILL NOT ACCEPT, THE CLOSEST TWO ARE [facility] IN [place] AND [facility] IN [place]. PT WILL REQUIRE PHYSICAL AND OCCUPATIONAL THERAPY EVALUATONS TO DETERMINE NEEDS FOR REHAB. CM TO FOLLOW AND ASSIST WITH REHAB PLACEMENT IF NEEDED. Wall Scraper: Elie Broderick DCPIA - Discharge Planning Initial Assessment Updated by [email or web address]: Elie Broderick on 08/18/19 4:57 pm * Is the patient Alert and Oriented? Yes * How many steps to enter\\exit or inside your home? RAMP * PCP [place] [facility] * Pharmacy [facility] * Preadmission Environment Home with Family * ADLs Independent * Equipment Power Chair or Electric Scooter Wheelchair * Other Equipment PT NOT USING POWER CHAIR, STATES IT IS TOO FAST. VA - MEDICAL EQUIPMENT PROVIDER * List name and contact numbers for known caregivers / representatives who currently or will assist patient after discharge: JULIO C PLEITEZ, FRIEND, ROCIO PIPER, FRIEND, * Verbal permission to speak to the caregivers and representatives has been obtained from the patient. N/A * Community resources currently utilized Other * Please name any agencies selected above. OUTPATIENT DIALYSIS, [facility], MWF, 1100, [facility]SP[facility] * Additional services required to return to the preadmission environment? Yes * Can the patient safely return to the preadmission environment? Yes * Has this patient been hospitalized within the prior 30 days at any hospital? Yes External Providers External Provider: [facility] Next Contact Date: 08/19/2019 Service Request Date: Service Type: Resolution: Reviewer: Comments: Last DP export: 08/19/19 9:44 a Patient Name: MARC CHADWICK Page 19721 at 1129 All edits/amendments must be made on the electronic document DICTATION DATE: 08/19/191127 VENDING MACHINE COIN COLLECTOR: JANN 08/19/191127 RPT#: [id number] DC DATE: STATUS: ADM IN [facility] [address] [place] [address] END OF REPORT
--- NOTE | 2019-08-19 11:43 | MORECARE ---
CASE MANAGEMENT DISCHARGE SUMMARY PATIENT: MARC CHADWICK UNIT: [id number] ADM DATE: 08/17/19 AGE: 74 : 47 SEX: M ROOM/BED: D.2112 AUTHOR: ALCIDES,DOC PHYSICIAN: REFERRING PHYSICIAN: EMA GOMEZ MD DATE OF SERVICE: 08/19/19 Discharge Plan Patient Name: MARC CHADWICK Facility: [facility]:[place] : 1945 Planned Disposition: Mcfp Facility Anticipated Discharge Date: 08/20/19 Discharge Date: Expected LOS: 3 Initial Reviewer: [email or web address] Initial Review Date: 08/17/2019 Generated: 08/19/19 12:42 pm Comments DCP- Discharge Planning Updated by [email or web address]: Elie Broderick on 08/19/19 10:[address] Patient Name: MARC CHADWICK Encounter No: [id number] : 1945 Primary Insurance: [employer] Anticipated DC Date: 08-20-2019 Planned Disposition: Mcfp Facility External Planned Provider: [facility] [place] [facility] DCP follow-up note: CM RECEIVED INPATIENT REHAB PRESCREENING ORDER. CM SPOKE TO PT IN ROOM, NOTIFIED THAT [place] WILL NOT ACCEPT DIALYSIS PATIENT; RHIANNON ADVISED THAT THE [place] DISCUSSED CARE HOME REHAB AT [place] CONTRACT[place] FACILITY SUCH THE [facility] IN [place] OR [facility] IN [place]. PT DOES NOT WANT TO GO [facility] HE GOT "HORRIBLE TREATMENT" THERE. PT WILL CONSENT TO REFERRAL TO [facility] FOR REHAB SERVICES, CHOICE SIGNED. CHART REVIEWED, ORDERS FOR PHYSICAL AND OCCUPATIONAL THERAPY EVALUATIONS OBTAINED. CM RECEIVED CALL FROM ANAI LEMUS OF [place] [facility]EMENT [facility], , AND WAS ADVISED OF PT'S DISCHARGE PLAN. RHIANNON NOTIFIED SHANIA LEE. CM WAITING PHYSICAL AND OCCUPATIONAL THERAPY EVALUATION RESULTS AND WILL SEND REFERRAL TO [facility] REH[facility]ILITATION ONCE ALL INFORMATION NEEDED FOR REFERRAL IS DOCUMENTED. CAMILLE Franco DCP- Discharge Planning Updated by [email or web address]: Elie Broderick on 08/18/19 4:[address] Patient Name: MARC CHADWICK Admission Status: Elective Accout number: [id number] Admission Date: 08-17-2019 : 1945 Admission Diagnosis: Attending: EMA GOMEZ Current LOS: 1 Anticipated DC Date: Planned Disposition: Mcfp Facility Primary Insurance: [employer] PLANNED EXTERNAL PROVIDER: TO BE DETERMINED Discharge Planning Comments: CM MET WITH PT IN ROOM TO DISCUSS DISCHARGE PLANNING AND NEEDS. PT REPORTS LIVING AT HOME INDEPENDENTLY AND HAS A FRIEND, JESUS DUNCAN, WHO LIVES WITH PT. JESUS ASSISTS WITH CLEANING, COOKING AND LAUNDRY. PT HAS POWER CHAIR THAT HE NO LONGER USES IT IS "TOO FAST"; PT HAS MANUAL WHEELCHAIR. PT HAS HOME CARE THAT [facility] AND DOES NOT KNOW WHICH COMPANY THEY SENT OUT. PT HAS NOT BEEN TAKING HIS HOME MEDICATIONS THE VA IS STILL TRYING TO GET THEM TO HIM FOR THE PAST TWO WEEKS. PT HAS BEEN TO HIS PRIMARY CARE VA DOCTOR AT [facility] TWICE IN THE PAST TWO WEEKS. CM DISCUSSED AVAILABILITY OF HOME HEALTH, REHAB SERVICES AND MEDICAL EQUIPMENT. PT THINKS HE MIGHT NEED REHAB AND ASKED IF HE CAN HAVE REHAB AT THE [facility]. PT DOES WANT TO BE PLACED ON VA TRANSFER LIST. PT STATES IF HE GOES HOME, HE WILL GO IN A TAXICAB AND HAS FUNDS TO PAY FOR TRANSPORTATION. CM CALLED [place] [facility], , SPOKE TO ROSEY AND PLACED PT ON VA TRANSFER LIST, NO BEDS AVAILABLE NOW. CM CALLED [place] [facility], , SPOKE TO YOVANI SCALES WHO ADVISED THEY DO NOT ACCEPT DIALYSIS PATIENTS IN THEIR INPATIENT PROGRAM, PT MAY QUALIFY FOR SKILLED COMMUNITY CARE PROGRAM BUT WOULD HAVE TO TRANSFER TO [place] [facility] FOR 14 DAY QUARANTINE PRIOR TO ENTERING. SHE ALSO SUGGESTED COMMUNITY CARE HOME FACILITY. CM CALLED MAIRA MONTEMAYOR, [facility], , DISCUSSED PT AND NEEDS; IF PT WILL GO [facility] C[facility] HOME AND IF [facility], THE CLOSEST TWO ARE [facility] IN [place] AND [facility] IN [place]. PT WILL REQUIRE PHYSICAL AND OCCUPATIONAL THERAPY EVALUATONS TO DETERMINE NEEDS FOR REHAB. CM TO FOLLOW AND ASSIST WITH REHAB PLACEMENT IF NEEDED. Thermoforming Machine Operator: Elie Broderick DCPIA - Discharge Planning Initial Assessment Updated by [email or web address]: Elie Broderick on 08/18/19 4:57 pm * Is the patient Alert and Oriented? Yes * How many steps to enter\\exit or inside your home? RAMP * [facility] * Pharmacy [facility] * Preadmission Environment Home with Family * ADLs Independent * Equipment Power Chair or Electric Scooter Wheelchair * Other Equipment PT NOT USING POWER CHAIR, STATES IT IS TOO FAST. VA - MEDICAL EQUIPMENT PROVIDER * List name and contact numbers for known caregivers / representatives who currently or will assist patient after discharge: JULIO C PLEITEZ, FRIEND, ROCIO PIPER, FRIEND, * Verbal permission to speak to the caregivers and representatives has been obtained from the patient. N/A * Community resources currently utilized Other * Please name any agencies selected above. OUTPATIENT DIALYSIS, [facility], MWF, 1100, [facility]SP[facility] * Additional services required to return to the preadmission environment? Yes * Can the patient safely return to the preadmission environment? Yes * Has this patient been hospitalized within the prior 30 days at any hospital? Yes Last DP export: 08/19/19 10:28 a Patient Name: MARC CHADWICK Page 63720 at 1143 All edits/amendments must be made on the electronic document DICTATION DATE: 08/19/19 1142 AIR TRAFFIC CONTROL SPECIALIST CENTER: JANN 08/19/19 1142 RPT#: [id number] DC DATE: STATUS: ADM IN [facility] [address] [place] [address] END OF REPORT
[2019-08-19 12:59] VITALS: BP 136/68
--- NOTE | 2019-08-19 13:22 | NUR ---
Rehab Note- Acute Inpatient Rehab prescreen order received. Per Jhonny, CM note the patient plans to utilize his VA Benefits and go to a VA SNF facility. Thank you for this referral! Amparo Berumen RN Clinical Liaison, [facility]
--- NOTE | 2019-08-19 14:47 | MORECARE ---
CASE MANAGEMENT DISCHARGE SUMMARY PATIENT: MARC CHADWICK UNIT: [id number] ADM DATE: 08/17/19 AGE: 74 : 47 SEX: M ROOM/BED: D.2112 AUTHOR: ALCIDES,DOC PHYSICIAN: REFERRING PHYSICIAN: EMA GOMEZ MD DATE OF SERVICE: 08/19/19 Discharge Plan Patient Name: MARC CHADWICK Facility: [facility]:[place] : 1945 Planned Disposition: Alf Facility Anticipated Discharge Date: 08/20/19 Discharge Date: Expected LOS: 3 Initial Reviewer: [email or web address] Initial Review Date: 08/17/2019 Generated: 08/19/19 3:46 pm DCP- Discharge Planning Updated by [email or web address]: Elie Malik on 08/19/19 1:[address] Patient Name: MARC CHADWICK Encounter No: [id number] : 1945 Primary Insurance: [employer] Anticipated DC Date: 08-20-2019 Planned Disposition: Alf Facility External Planned Provider: [facility], SKILLED REHAB [place] CONTRACT BED DCP follow-up note: CM RECEIVED INPATIENT REHAB PRESCREENING ORDER. CM SPOKE TO PT IN ROOM, NOTIFIED THAT [place] WILL NOT ACCEPT DIAL[place]IS PATIENT; RHIANNON ADVISED THAT THE [place] DISCUSSED [place]HAB AT [place] CONTRACT[place] SUCH THE [facility] IN [place] OR [facility] IN [place]. PT DOES NOT WANT TO GO THE [facility] HE GOT "HORRIBLE TREATMENT" THERE. PT WILL CONSENT TO REFERRAL TO [facility] FOR REHAB SERVICES, CHOICE SIGNED. CHART REVIEWED, ORDERS FOR PHYSICAL AND OCCUPATIONAL THERAPY EVALUATIONS OBTAINED. CM RECEIVED CALL FROM ANAI LEMUS OF [place] CASE MANAGEMENT SERVICES, , AND WAS ADVISED OF PT'S DISCHARGE PLAN. CM NOTIFIED SHANIA LEE. CM WAITING PHYSICAL AND OCCUPATIONAL THERAPY EVALUATION RESULTS AND WILL SEND REFERRAL TO [facility] ONCE ALL INFORMATION NEEDED FOR REFERRAL IS DOCUMENTED. Elie Malik, CASE MANAGEMENT Appended by Elie Malik on 08/19/2019 14:45 CDT: RHIANNON REVIEWED CHART, FAXED REHAB REFERRAL TO [facility] IN [place] VIA NIKKIE AT [phone]. CM NOTIFED NIKKIE OF REFERRAL AT [phone]. IF ACCEPTED FOR REHAB AT [facility], CM WILL HAVE TO COORDINATE TEMPORARY DIALYSIS UNIT CHANGE. ELIE MALIK, CASE MANAGEMENT DCP- Discharge Planning Updated by [id number]: Elie Malik on 08/18/19 4:[address] Patient Name: MARC CHADWICK Admission Status: Elective Accout number: [id number] Admission Date: 08-17-2019 : 1945 Admission Diagnosis: Attending: EMA GOMEZ Current LOS: 1 Anticipated DC Date: Planned Disposition: Alf Facility Primary Insurance: [employer] PLANNED EXTERNAL PROVIDER: TO BE DETERMINED Discharge Planning Comments: CM MET WITH PT IN ROOM TO DISCUSS DISCHARGE PLANNING AND NEEDS. PT REPORTS LIVING AT HOME INDEPENDENTLY AND HAS A FRIEND, JESUS DUNCAN, WHO LIVES WITH PT. JESUS ASSISTS WITH CLEANING, COOKING AND LAUNDRY. PT HAS POWER CHAIR THAT HE NO LONGER USES IT IS "TOO FAST"; PT HAS MANUAL WHEELCHAIR. PT HAS HOME CARE THAT JUST STARTED FROM THE [place] AND DOES NOT KNOW WHICH COMPANY THEY SENT OUT. PT HAS NOT BEEN TAKING HIS HOME MEDICATIONS THE [facility] IS STILL TRYING TO GET THEM TO HIM FOR THE PAST TWO WEEKS. PT HAS BEEN TO HIS PRIMARY CARE VA DOCTOR AT [facility] TWICE IN THE PAST TWO WEEKS. CM DISCUSSED AVAILABILITY OF HOME HEALTH, REHAB SERVICES AND MEDICAL EQUIPMENT. PT THINKS HE MIGHT NEED REHAB AND ASKED IF HE CAN HAVE REHAB AT THE [place]. PT DOES WANT TO BE PLACED ON [place] TRANSFER LIST. PT STATES IF HE GOES HOME, HE WILL GO IN A TAXICAB AND HAS FUNDS TO PAY FOR TRANSPORTATION. CM CALLED [facility], , SPOKE TO ROSEY AND PLACED PT ON VA TRANSFER LIST, NO BEDS AVAILABLE NOW. CM CALLED [place] [facility], , SPOKE TO YOVANI SCALES WHO ADVISED THEY DO NOT ACCEPT DIALYSIS PATIENTS IN THEIR INPATIENT PROGRAM, PT MAY QUALIFY FOR SKILLED COMMUNITY CARE PROGRAM BUT WOULD HAVE TO TRANSFER TO [place] MEDICAL FACILITY FOR 14 DAY QUARANTINE PRIOR TO ENTERING. SHE ALSO SUGGESTED COMMUNITY HALF-WAY FACILITY. CM CALLED MAIRA MONTEMAYOR, [facility] HALF-WAY FACILITY LIAISON, , DISCUSSED PT AND NEEDS; IF PT WILL GO SO HALF-WAY AND IF THE [facility] WILL NOT ACCEPT, THE CLOSEST TWO ARE [facility] IN [place] AND [facility] IN [place]. PT WILL REQUIRE PHYSICAL AND OCCUPATIONAL THERAPY EVALUATONS TO DETERMINE NEEDS FOR REHAB. CM TO FOLLOW AND ASSIST WITH REHAB PLACEMENT IF NEEDED. Media Planner: Elie Malik DCPIA - Discharge Planning Initial Assessment Updated by [id number]: Elie Malik on 08/18/19 4:57 pm * Is the patient Alert and Oriented? Yes * How many steps to enter\\exit or inside your home? RAMP * [facility] * [facility]acy [facility] * Preadmission Environment Home with Family * ADLs Independent * Equipment Power Chair or Electric Scooter Wheelchair * Other Equipment PT NOT USING POWER CHAIR, STATES IT IS TOO FAST. VA - MEDICAL EQUIPMENT PROVIDER * List name and contact numbers for known caregivers / representatives who currently or will assist patient after discharge: JULIO C PLEITEZ, FRIEND, ROCIO PIPER, FRIEND, * Verbal permission to speak to the caregivers and representatives has been obtained from the patient. N/A * Community resources currently utilized Other * Please name any agencies selected above. OUTPATIENT DIALYSIS, [facility], MWF, 1100, [employer] * Additional services required to return to the preadmission environment? Yes * Can the patient safely return to the preadmission environment? Yes * Has this patient been hospitalized within the prior 30 days at any hospital? Yes Last DP export: 08/19/19 10:43 a Patient Name: MARC CHADWICK Page [id number] at 1447 All edits/amendments must be made on the electronic document DICTATION DATE: 08/19/191445 DRILL RUNNER: JANN 08/19/196 RPT#: [id number] DC DATE: STATUS: ADM IN [facility] [address] [place] [address] END OF REPORT
--- NOTE | 2019-08-19 16:01 | MORECARE ---
CASE MANAGEMENT DISCHARGE SUMMARY PATIENT: MARC CHADWICK UNIT: [id number] ADM DATE: 08/17/19 AGE: 74 : 47 SEX: M ROOM/BED: D.2112 AUTHOR: ALCIDES,DOC PHYSICIAN: REFERRING PHYSICIAN: EMA GOMEZ MD DATE OF SERVICE: 08/19/19 Discharge Plan Patient Name: MARC CHADWICK Facility: [facility]:[place] : 1945 Planned Disposition: [facility] Facility Anticipated Discharge Date: 08/20/19 Discharge Date: Expected LOS: 3 Initial Reviewer: [id number] Initial Review Date: 08/17/2019 Generated: 08/19/19 5:01 pm Comments DCP- Discharge Planning Updated by [id number]: Eden Malik on 08/19/19 2:[address] Patient Name: MARC CHADWICK Encounter No: [id number] : 1945 Primary Insurance: [employer] Anticipated DC Date: 08-20-2019 Planned Disposition: [facility] Facility External Planned Provider: [facility], [place]ED REHAB [place] CONTRACT BED DCP follow-up note: CM RECEIVED INPATIENT REHAB PRESCREENING ORDER. CM SPOKE TO PT IN ROOM, NOTIFIED THAT [place] WILL NOT [place] DIAL[place] PATIENT; RHIANNON [place]ED THAT THE [place]CUSS[place] AT [place] CONTRACTED FACILITY SUCH THE [facility] IN [place] OR [facility]LY [facility], [facility] IN [place]. PT DOES NOT WANT TO GO THE [facility] HE GOT "HORRIBLE TREATMENT" THERE. PT WILL CONSENT TO REFERRAL TO [facility] FOR REHAB SERVICES, CHOICE SIGNED. CHART REVIEWED, ORDERS FOR PHYSICAL AND OCCUPATIONAL THERAPY EVALUATIONS OBTAINED. CM RECEIVED CALL FROM ANAI LEMUS OF [place] CASE MANAGEMENT SERVICES, , AND WAS ADVISED OF PT'S DISCHARGE PLAN. CM NOTIFIED SHANIA LEE. CM WAITING PHYSICAL AND OCCUPATIONAL THERAPY EVALUATION RESULTS AND WILL SEND REFERRAL TO [facility] ONCE ALL INFORMATION NEEDED FOR REFERRAL IS DOCUMENTED. Eden Malik, CASE MANAGEMENT Appended by Eden Malik on 08/19/2019 14:45 CDT: RHIANNON REVIEWED CHART, FAXED REHAB REFERRAL TO [facility] IN [place] VIA NIKKIE AT [phone]. CM NOTIFED NIKKIE OF REFERRAL AT [phone]. IF ACCEPTED FOR REHAB AT [facility], CM WILL HAVE TO COORDINATE TEMPORARY DIALYSIS UNIT CHANGE. EDEN MALIK, CASE MANAGEMENT Appended by Eden Malik on 08/19/2019 15:56 CDT: CM RECEIVED CALL FROM JAMES OF [facility]. PT IS ACTIVE AND ON HOSPITAL HOLD. IT PT GOES HOME, [facility] WILL RESUME HOME HEALTH SERVICES. CM WAITING ADMISSION DETERMINATION FOR LONG-TERM REHAB AT [facility]. IF ACCEPTED FOR REHAB AT [facility], CM WILL HAVE TO COORDINATE TEMPORARY DIALYSIS UNIT CHANGE. EDEN MALIK CASE MANAGEMENT DCP- Discharge Planning Updated by [id number]: Eden Malik on 08/18/19 4:[address] Patient Name: MARC CHADWICK Admission Status: Elective Accout number: [id number] Admission Date: 08-17-2019 : 1945 Admission Diagnosis: Attending: EMA GOMEZ Current LOS: 1 Anticipated DC Date: Planned Disposition: [facility] Primary Insurance: [employer] ADMINISTRATION PLANNED EXTERNAL PROVIDER: TO BE DETERMINED Discharge Planning Comments: CM MET WITH PT IN ROOM TO DISCUSS DISCHARGE PLANNING AND NEEDS. PT REPORTS LIVING AT HOME INDEPENDENTLY AND HAS A FRIEND, JESUS DUNCAN, WHO LIVES WITH PT. JESUS ASSISTS WITH CLEANING, COOKING AND LAUNDRY. PT HAS POWER CHAIR THAT HE NO LONGER USES IT IS "TOO FAST"; PT HAS MANUAL WHEELCHAIR. PT HAS HOME CARE THAT JUST STARTED FROM THE [facility] AND DOES NOT KNOW WHICH COMPANY THEY SENT OUT. PT HAS NOT BEEN TAKING HIS HOME MEDICATIONS THE VA IS STILL TRYING TO GET THEM TO HIM FOR THE PAST TWO WEEKS. PT HAS BEEN TO HIS PRIMARY CARE VA DOCTOR AT [facility] TWICE IN THE PAST TWO WEEKS. CM DISCUSSED AVAILABILITY OF HOME HEALTH, REHAB SERVICES AND MEDICAL EQUIPMENT. PT THINKS HE MIGHT NEED REHAB AND ASKED IF HE CAN HAVE REHAB AT THE [facility]. PT DOES WANT TO BE PLACED ON [place] TRANSFER LIST. PT STATES IF HE GOES HOME, HE WILL GO IN A TAXICAB AND HAS FUNDS TO PAY FOR TRANSPORTATION. CM CALLED [facility], , SPOKE TO ROSEY AND PLACED PT ON VA TRANSFER LIST, NO BEDS AVAILABLE NOW. CM CALLED [place] [facility], , SPOKE TO YOVANI SCALES WHO ADVISED THEY DO NOT ACCEPT DIALYSIS PATIENTS IN THEIR INPATIENT PROGRAM, PT MAY QUALIFY FOR SKILLED COMMUNITY CARE PROGRAM BUT WOULD HAVE TO [place]SFER TO [place] FOR 14 DAY QUARANTINE PRIOR TO ENTERING. SHE ALSO SUGGESTED COMMUNITY LONG-TERM FACILITY. CM CALLED MAIRA MONTEMAYOR, [facility] LONG-TERM FACILITY LIAISON, , DISCUSSED PT AND NEEDS; IF PT WILL GO SO LONG-TERM AND IF THE [facility] WILL NOT ACCEPT, THE CLOSEST TWO ARE [facility] IN [place] AND [facility], [facility] IN [place]. PT WILL REQUIRE PHYSICAL AND OCCUPATIONAL THERAPY EVALUATONS TO DETERMINE NEEDS FOR REHAB. CM TO FOLLOW AND ASSIST WITH REHAB PLACEMENT IF NEEDED. Social Science Professor: Eden Malik DCPIA - Discharge Planning Initial Assessment Updated by [id number]: Eden Malik on 08/18/19 4:57 pm * Is the patient Alert and Oriented? Yes * How many steps to enter\\exit or inside your home? RAMP * PCP [facility] CLINIC * Pharmacy [facility]IL [facility] * Preadmission Environment Home with Family * ADLs Independent * Equipment Power Chair or Electric Scooter Wheelchair * Other Equipment PT NOT USING POWER CHAIR, STATES IT IS TOO FAST. VA - MEDICAL EQUIPMENT PROVIDER * List name and contact numbers for known caregivers / representatives who currently or will assist patient after discharge: JULIO C PLEITEZ, FRIEND, ROCOI PIPER, FRIEND, * Verbal permission to speak to the caregivers and representatives has been obtained from the patient. N/A * Community resources currently utilized Other * Please name any agencies selected above. OUTPATIENT DIALYSIS, [facility], MWF, 1100, [employer] * Additional services required to return to the preadmission environment? Yes * Can the patient safely return to the preadmission environment? Yes * Has this patient been hospitalized within the prior 30 days at any hospital? Yes Last DP export: 08/19/19 1:47 p Patient Name: MARC CHADWICK Page [id number] at 1601 All edits/amendments must be made on the electronic document DICTATION DATE: 08/19/191600 PHOTO CHECKER AND ASSEMBLER: JANN 08/19/191600 RPT#: [id number] DC DATE: STATUS: ADM IN [facility] [address] [place] [address] END OF REPORT
[2019-08-19 20:00] VITALS: BP 136/53
--- NOTE | 2019-08-19 20:24 | NUR ---
REPORT RECEIVED. PT IN DIALYSIS AT THIS TIME.
--- NOTE | 2019-08-19 20:24 | NUR ---
PT FOUND IN REHAB BY RT. PT STATES HE WAS TRYING TO FIND THE [place]. ASSISED PT TO BED AND PROVIDED FOOD. RR EVEN AND UNLABORED. NO S/SX OF DISTRESS OBSERVED AT THIS TIME. EDUCATED USE OF CALL LIGHT FOR ASSISTANCE. WILL CTM.
[2019-08-20] VITALS: BP 112/52; BP 150/68
--- NOTE | 2019-08-20 00:21 | NUR ---
PT UP WONDERING AROUND IN W/C. CONFUSED ON TIME AND PLACE. DIFFICULT TO REDIRECT. WILL CTM.
--- NOTE | 2019-08-20 04:23 | NUR ---
PT REFUSED VAPOTHERM, O2 INCREASED TO 6L HF. DENIES SOB. NO S/SX OF DISTRESS OBSERVED. WILL CTM.
[2019-08-20 04:30] VITALS: BP 133/63
[2019-08-20 04:41] LABS: BASOPHILS 0.1 % (0-2); EOSINOPHILS 4.6 % (0-7); HEMATOCRIT 37.7 % (42.0-54.0); IMMATURE GRANULOCYTES 0.1 % (0-5); LYMPHOCYTES 13.9 % (15-50); MCH 29.7 pg (26.0-34.0); MCHC 29.2 g/dL (31.0-37.0); MCV 101.9 fL (80.0-100.0); MEAN PLATELET VOLUME 9.9 fL (7.4-10.4); MONOCYTES 11.1 % (2-11); NEUTROPHILS 70.2 % (40-80); PLATELET COUNT 172 10x3/uL (130-400); RDW 16.7 % (11.5-14.5); WBC 6.7 10x3/uL (4.8-10.8)
[2019-08-20 04:49] LABS: INR 1.17 (0.85-1.17); PROTIME 14.8 SECONDS (11.6-15.0)
[2019-08-20 04:54] LABS: APTT 33.4 SECONDS (22.8-39.4)
[2019-08-20 05:01] LABS: ALBUMIN 3.8 g/dL (3.4-5.0); ANION GAP 15.9 mmol/L (8-16); BILIRUBIN - TOTAL 0.5 mg/dL (0.2-1.3); CALCIUM 9.7 mg/dL (8.5-10.1); CARBON DIOXIDE 29.3 mmol/L (21.0-32.0); CREATININE - SERUM 6.1 mg/dL (0.6-1.3); PHOSPHOROUS 6.4 mg/dL (2.5-4.9); POTASSIUM - SERUM 4.2 mmol/L (3.5-5.1); PROTEIN - SERUM 7.8 g/dL (6.4-8.2)
--- NOTE | 2019-08-20 06:34 | NUR ---
PT KEEPS LEAVING THE FLOOR. TRYING TO GO OUT OF THE DOUBLE DOORS. HARD TO REDIRECT BACK IN ROOM. WILL CTM.
--- NOTE | 2019-08-20 07:15 | NUR ---
RECEIVED PT SITTING IN W/C AAOX4 RESP UNLABORED SKIN W/D COLOR WNL DENIES ANY PAIN OR DISCOMFORT WILL CONTINUE TO MONITOR
[2019-08-20 08:21] VITALS: BP 133/50
[2019-08-20 12:58] VITALS: BP 110/59
--- NOTE | 2019-08-20 16:00 | NUR ---
ASSUMED CARE OF PATIENT. PATIENT OOB TO WHEELCHAIR ROLLING HIMSELF AROUND ON UNIT. NO DISTRESS.
--- NOTE | 2019-08-20 17:45 | NUR ---
CONTINUES WHEELING SELF AROUND UNIT IN WHEELCHAIR. NO DISTRESS.
[2019-08-20 20:00] VITALS: BP 152/56
[2019-08-21 04:00] VITALS: BP 121/65
[2019-08-21 04:49] LABS: BASOPHILS 0.2 % (0-2); EOSINOPHILS 3.7 % (0-7); HEMATOCRIT 35.3 % (42.0-54.0); HEMOGLOBIN 10.5 g/dL (13.5-17.5); IMMATURE GRANULOCYTES 0.2 % (0-5); MCH 29.6 pg (26.0-34.0); MCHC 29.7 g/dL (31.0-37.0); MONOCYTES 11.6 % (2-11); NEUTROPHILS 70.3 % (40-80); PLATELET COUNT 164 10x3/uL (130-400); RBC 3.55 10x6/uL (4.20-6.10); RDW 16.7 % (11.5-14.5); WBC 6.2 10x3/uL (4.8-10.8)
[2019-08-21 04:54] LABS: MCV 99.4 fL (80.0-100.0)
[2019-08-21 04:59] LABS: APTT 35.7 SECONDS (22.8-39.4); INR 1.23 (0.85-1.17); PROTIME 15.4 SECONDS (11.6-15.0)
[2019-08-21 05:01] LABS: ALBUMIN 3.6 g/dL (3.4-5.0); ANION GAP 20.3 mmol/L (8-16); BILIRUBIN - TOTAL 0.54 mg/dL (0.2-1.3); CALCIUM 9.3 mg/dL (8.5-10.1); CARBON DIOXIDE 25.8 mmol/L (21.0-32.0); POTASSIUM - SERUM 4.1 mmol/L (3.5-5.1); PROTEIN - SERUM 7.4 g/dL (6.4-8.2)
[2019-08-21 05:02] LABS: CREATININE - SERUM 7.8 mg/dL (0.6-1.3)
[2019-08-21 08:08] VITALS: BP 129/71
--- NOTE | 2019-08-21 09:23 | NUR ---
PATIENT RECIEVED THIS AM SITTING ON SIDE OF BED FOR AM MEAL. REPORTS PAIN TO LEFT LEG RELIEVED WITH NORCO GIVEN. PATIENT IS ALERT WITH RANDOM DISORIENTATION. RESPIRATIONNS REGULAR AND NONLABORED. PULSES WNL TO RIGHT LOWER EXTREMITY. CL IN REACH
[2019-08-21 11:44] VITALS: BP 148/65
[2019-08-21 16:04] VITALS: BP 146/68
[2019-08-21 20:00] VITALS: BP 137/54
[2019-08-22 04:00] VITALS: BP 130/70
[2019-08-22 05:23] LABS: BASOPHILS 0.2 % (0-2); EOSINOPHILS 4.9 % (0-7); HEMATOCRIT 35.6 % (42.0-54.0); HEMOGLOBIN 10.4 g/dL (13.5-17.5); LYMPHOCYTES 17.2 % (15-50); MCH 29.1 pg (26.0-34.0); MCHC 29.2 g/dL (31.0-37.0); MCV 99.4 fL (80.0-100.0); MEAN PLATELET VOLUME 9.5 fL (7.4-10.4); MONOCYTES 11.5 % (2-11); NEUTROPHILS 66.2 % (40-80); PLATELET COUNT 148 10x3/uL (130-400); RBC 3.58 10x6/uL (4.20-6.10); RDW 16.4 % (11.5-14.5)
[2019-08-22 05:30] LABS: WBC 4.5 10x3/uL (4.8-10.8)
[2019-08-22 05:44] LABS: INR 1.24 (0.85-1.17); PROTIME 15.5 SECONDS (11.6-15.0)
[2019-08-22 05:45] LABS: APTT 40.9 SECONDS (22.8-39.4)
[2019-08-22 05:54] LABS: ALBUMIN 3.7 g/dL (3.4-5.0); ANION GAP 21.7 mmol/L (8-16); BILIRUBIN - TOTAL 0.49 mg/dL (0.2-1.3); CARBON DIOXIDE 26.5 mmol/L (21.0-32.0); CREATININE - SERUM 9.5 mg/dL (0.6-1.3); PHOSPHOROUS 8.5 mg/dL (2.5-4.9); POTASSIUM - SERUM 4.2 mmol/L (3.5-5.1); PROTEIN - SERUM 7.2 g/dL (6.4-8.2)
[2019-08-22 08:40] VITALS: BP 121/53
--- NOTE | 2019-08-22 10:04 | NUR ---
Nutrition Follow-up: Noted pt remains confused. Chart reviewed. Noted pt ate ~75% of breakfast this AM per record. Diet: Renal PO intake: 50-75% Wt: 147# (08/21); 145# (08/17) Last BM: 08/20 per chart Labs noted: K+ 4.2, PO4 8.5, Glu 119 Meds noted: Nephrovite, Renvela, Pepcid -Encourage PO intake and honor food preferences within diet restrictions. -Offer Nepro with meals. -Monitor wt; noted daily wts ordered. -RD following.
[2019-08-22 11:54] VITALS: BP 150/71
--- NOTE | 2019-08-22 14:05 | MORECARE ---
CASE MANAGEMENT DISCHARGE SUMMARY PATIENT: MARC CHADWICK UNIT: [id number] ADM DATE: 08/17/19 AGE: 74 : 47 SEX: M ROOM/BED: D.2112 AUTHOR: ALCIDES,DOC PHYSICIAN: REFERRING PHYSICIAN: EMA GMOEZ MD DATE OF SERVICE: 08/22/19 Discharge Plan Patient Name: MARC CHADWICK Facility: [facility]:[place] : 1945 Planned Disposition: Inpatient Rehab Anticipated Discharge Date: 08/22/19 Discharge Date: Expected LOS: 5 Initial Reviewer: [id number] Initial Review Date: 08/17/2019 Generated: 08/22/19 3:05 pm Comments DCP- Discharge Planning Updated by [email or web address]: Eden Malik on 08/19/19 2:[address] Patient Name: MARC CHADWICK Encounter No: [id number] : 1945 Primary Insurance: [employer] Anticipated DC Date: 08-20-2019 Planned Disposition: Snf Facility External Planned Provider: [facility], [place]ED [place]AB [place] BED DCP follow-up note: CM RECEIVED INPATIENT REHAB PRESCREENING ORDER. CM SPOKE TO PT IN ROOM, NOTIFIED THAT [place] WILL NOT ACCEPT DIALYSIS PATIENT; RHIANNON ADVISED THAT THE [place] SUCH THE [facility] [place] OR [facility] [place]. PT DOES NOT WANT TO GO THE [facility] HE GOT "HORRIBLE TREATMENT" THERE. PT WILL CONSENT TO REFERRAL TO [facility] FOR REHAB SERVICES, CHOICE SIGNED. CHART REVIEWED, ORDERS FOR PHYSICAL AND OCCUPATIONAL THERAPY EVALUATIONS OBTAINED. CM RECEIVED CALL FROM ANAI LEMUS OF [place] CASE MANAGEMENT SERVICES, , AND WAS ADVISED OF PT'S DISCHARGE PLAN. CM NOTIFIED SHANIA LEE. CM WAITING PHYSICAL AND OCCUPATIONAL THERAPY EVALUATION RESULTS AND WILL SEND REFERRAL TO [facility] ONCE ALL INFORMATION NEEDED FOR REFERRAL IS DOCUMENTED. Eden Malik, CASE MANAGEMENT Appended by Eden Malik on 08/19/2019 14:45 CDT: RHIANNON REVIEWED CHART, FAXED REHAB REFERRAL TO [facility] IN [place] VIA NIKKIE AT [phone]. CM NOTIFED NIKKIE OF REFERRAL AT [phone]. IF ACCEPTED FOR REHAB AT [facility], CM WILL HAVE TO COORDINATE TEMPORARY DIALYSIS UNIT CHANGE. EDEN MALIK, CASE MANAGEMENT Appended by Eden Malik on 08/19/2019 15:56 CDT: CM RECEIVED CALL FROM JAMES OF [facility]. PT IS ACTIVE AND ON HOSPITAL HOLD. IT PT GOES HOME, [facility] WILL RESUME HOME HEALTH SERVICES. CM WAITING ADMISSION DETERMINATION FOR [facility] REHAB AT [facility]. IF ACCEPTED FOR REHAB AT [facility], CM WILL HAVE TO COORDINATE TEMPORARY DIALYSIS UNIT CHANGE. EDEN MALIK CASE MANAGEMENT DCP- Discharge Planning Updated by [id number]: Eden Malik on 08/18/19 4:[address] Patient Name: MARC CHADWICK Admission Status: Elective Accout number: [id number] Admission Date: 08-17-2019 : 1945 Admission Diagnosis: Attending: EMA GOMEZ Current LOS: 1 Anticipated DC Date: Planned Disposition: Snf Facility Primary Insurance: [employer] ADMINISTRATION PLANNED EXTERNAL PROVIDER: TO BE DETERMINED Discharge Planning Comments: CM MET WITH PT IN ROOM TO DISCUSS DISCHARGE PLANNING AND NEEDS. PT REPORTS LIVING AT HOME INDEPENDENTLY AND HAS A FRIEND, JESUS DUNCAN, WHO LIVES WITH PT. JESUS ASSISTS WITH CLEANING, COOKING AND LAUNDRY. PT HAS POWER CHAIR THAT HE NO LONGER USES IT IS "TOO FAST"; PT HAS MANUAL WHEELCHAIR. PT HAS HOME CARE THAT JUST STARTED FROM THE [facility] AND DOES NOT KNOW WHICH COMPANY THEY SENT OUT. PT HAS NOT BEEN TAKING HIS HOME MEDICATIONS THE VA IS STILL TRYING TO GET THEM TO HIM FOR THE PAST TWO WEEKS. PT HAS BEEN TO HIS PRIMARY CARE VA DOCTOR AT [facility] TWICE IN THE PAST TWO WEEKS. CM DISCUSSED AVAILABILITY OF HOME HEALTH, REHAB SERVICES AND MEDICAL EQUIPMENT. PT THINKS HE MIGHT NEED REHAB AND ASKED IF HE CAN HAVE REHAB AT THE [facility]. PT DOES WANT TO BE PLACED ON VA TRANSFER LIST. PT STATES IF HE GOES HOME, HE WILL GO IN A TAXICAB AND HAS FUNDS TO PAY FOR TRANSPORTATION. CM CALLED [facility], , SPOKE TO ROSEY AND PLACED PT ON VA TRANSFER LIST, NO BEDS AVAILABLE NOW. CM CALLED [place] [facility], , SPOKE TO YOVANI SCALES WHO ADVISED THEY DO NOT ACCEPT DIALYSIS PATIENTS IN THEIR INPATIENT PROGRAM, PT MAY QUALIFY FOR SKILLED COMMUNITY CARE PROGRAM BUT WOULD HAVE TO TRANSFER TO [place] F[place]ILITY FOR 14 DAY QUARANTINE PRIOR TO ENTERING. SHE ALSO SUGGESTED COMMUNITY MCC FACILITY. CM CALLED MAIRA MONTEMAYOR, [facility] MCC FACILITY LIAISON, , DISCUSSED PT AND NEEDS; IF PT WILL GO SO [facility] AND IF [place] [facility] WILL NOT ACCEPT, THE CLOSEST TWO ARE [facility] [place] AND [facility] [place]. PT WILL REQUIRE PHYSICAL AND OCCUPATIONAL THERAPY EVALUATONS TO DETERMINE NEEDS FOR REHAB. CM TO FOLLOW AND ASSIST WITH REHAB PLACEMENT IF NEEDED. Pattern Perforating Machine Operator: Eden Malik DCPIA - Discharge Planning Initial Assessment Updated by [id number]: Eden Malik on 08/18/19 4:57 pm * Is the patient Alert and Oriented? Yes * How many steps to enter\\exit or inside your home? RAMP * [facility]CP [facility] * Pharmacy [facility] * Preadmission Environment Home with Family * ADLs Independent * Equipment Power Chair or Electric Scooter Wheelchair * Other Equipment PT NOT USING POWER CHAIR, STATES IT IS TOO FAST. [facility] - MEDICAL EQUIPMENT PROVIDER * List name and contact numbers for known caregivers / representatives who currently or will assist patient after discharge: JULIO C PLEITEZ, FRIEND, ROCIO PIPER, FRIEND, * Verbal permission to speak to the caregivers and representatives has been obtained from the patient. N/A * Community resources currently utilized Other * Please name any agencies selected above. OUTPATIENT DIALYSIS, [facility], MWF, 1100, [employer] [facility] * Additional services required to return to the preadmission environment? Yes * Can the patient safely return to the preadmission environment? Yes * Has this patient been hospitalized within the prior 30 days at any hospital? Yes Last DP export: 08/19/19 3:01 p Patient Name: MARC CHADWICK Page [id number] at 1405 All edits/amendments must be made on the electronic document DICTATION DATE: 08/22/19 1405 WIRELESS COMMUNICATIONS ENGINEER: JANN 08/22/19 140 RPT#: [id number] DC DATE: STATUS: ADM IN [facility] [address] [place] [address] END OF REPORT
--- NOTE | 2019-08-22 14:14 | MORECARE ---
CASE MANAGEMENT DISCHARGE SUMMARY PATIENT: MARC CHADWICK UNIT: [id number] ADM DATE: 08/17/19 AGE: 74 : [birth year] SEX: M ROOM/BED: D.2112 AUTHOR: ALCIDES,DOC PHYSICIAN: REFERRING PHYSICIAN: EMA GOMEZ MD DATE OF SERVICE: 08/22/19 Discharge Plan Patient Name: MARC CHADWICK [facility] [facility] 1945 Planned Disposition: Inpatient Rehab Anticipated Discharge Date: 08/22/19 Discharge Date: Expected LOS: 5 Initial Reviewer: [id number] Initial Review Date: 08/17/2019 Generated: 08/22/19 3:13 pm Comments DCP- Discharge Planning Updated by [email or web address]: Eden Malik on 08/22/19 1:[address] Patient Name: MARC CHADWICK Encounter No: [id number] : 1945 Primary Insurance: [employer] Anticipated DC Date: 08-22-2019 Planned Disposition: Inpatient Rehab External Planned Provider: [facility] INPATIENT REHAB DCP follow-up note: CM RECEIVED CALL FROM [facility], THEY DECLINED PT THEY ARE NOT ACCEPTING ANY DIALYSIS PATIENTS AT THIS TIME. CM DISCUSSED OPTION OF [facility] FOR SKILLED REHAB. PT STATES HE WOULD LIKE INPATIENT REHAB AT [facility] IF THEY WOULD TAKE HIM, HE DOES NOT WANT TO GO TO [place], BUT WOULD IF HE HAS TOO TO GET REHAB FROM THE DC. CHOICE SIGNED FOR [facility] INPATIENT REHAB AND [facility] SNF. CM SPOKE TO KUSHAL OF INPATIENT REHAB, THEY CAN TAKE PT INTO REHAB IF PT GETS A LETTER FROM DC ATTESTING THEY WILL CONTRACT PAYMENT OR IF PT WANTS TO SIGN WAIVER OF DC AND USE HIS MEDICARE WITH [employer]. PT DOES NOT WANT TO PAY A COPAY AND DOES NOT HAVE HIS MEDICARE CARD. CM SPOKE TO DR. LEMUS WHO INFORMED CM THAT PT IS READY TO DISCHARGE TO REHAB. CM CALLED KIANA LEMUS OF [facility], ; KIANA ROSARIO WILL CALL AND TALK TO YOVANI SCALES OF THE DC INPATIENT REHAB AND DETERMINE WHAT THEY CAN WORK OUT. CM WAITING DETERMINATION FROM [facility] IF THEY WILL CONTRACT FOR INPATIENT REHAB AT [facility]. CAMILLE Akbar DCP- Discharge Planning Updated by [id number]: Eden Malik on 08/19/19 2:[address] Patient Name: MARC CHADWICK Encounter No: [id number] : 1945 Primary Insurance: [employer] Anticipated DC Date: 08-20-2019 Planned Disposition: Long-Term Facility External Planned Provider: [facility], SKILLED REHAB [place] CONTRACT BED DCP follow-up note: CM RECEIVED INPATIENT REHAB PRESCREENING ORDER. CM SPOKE TO PT IN ROOM, NOTIFIED THAT DC WILL NOT ACCEPT DIALYSIS PATIENT; CM ADVISED THAT THE DC DISCUSSED DETENTION REHAB AT DC CONTRACTED FACILITY SUCH THE [facility] IN [place] OR [facility] IN [place]. PT DOES NOT WANT TO GO THE [facility] HE GOT "HORRIBLE TREATMENT" THERE. PT WILL CONSENT TO REFERRAL TO [facility] FOR REHAB SERVICES, CHOICE SIGNED. CHART REVIEWED, ORDERS FOR PHYSICAL AND OCCUPATIONAL THERAPY EVALUATIONS OBTAINED. CM RECEIVED CALL FROM ANAI LEMUS OF DC CASE MANAGEMENT SERVICES, , AND WAS ADVISED OF PT'S DISCHARGE PLAN. CM NOTIFIED SHANIA LEE. CM WAITING PHYSICAL AND OCCUPATIONAL THERAPY EVALUATION RESULTS AND WILL SEND REFERRAL TO THE [facility] ONCE ALL INFORMATION NEEDED FOR REFERRAL IS DOCUMENTED. CAMILLE Akbar MANAGEMENT Appended by Eden Malik on 08/19/2019 14:45 CDT: CM REVIEWED CHART, FAXED REHAB REFERRAL TO THE [facility] IN [place] VIA NIKKIE AT [phone]. CM NOTIFED HOSCHTON OF REFERRAL AT [phone]. IF ACCEPTED FOR REHAB AT [facility], CM WILL HAVE TO COORDINATE TEMPORARY DIALYSIS UNIT CHANGE. EDEN MALIK CASE MANAGEMENT Appended by Eden Malik on 08/19/2019 15:56 CDT: CM RECEIVED CALL FROM [facility]. PT IS ACTIVE AND ON HOSPITAL HOLD. IT PT GOES HOME, [place] WILL RESUME HOME HEALTH SERVICES. CM WAITING ADMISSION DETERMINATION FOR DETENTION REHAB AT [facility]. IF ACCEPTED FOR REHAB AT [facility], CM WILL HAVE TO COORDINATE TEMPORARY DIALYSIS UNIT CHANGE. CAMILLE AKBAR DCP- Discharge Planning Updated by [id number]: Eden Malik on 08/18/19 4:[address] Patient Name: MARC CHADWICK Admission Status: Elective Accout number: [id number] Admission Date: 08-17-2019 : 1945 Admission Diagnosis: Attending: EMA GOMEZ Current LOS: 1 Anticipated DC Date: Planned Disposition: Long-Term Facility Primary Insurance: [employer] PLANNED EXTERNAL PROVIDER: TO BE DETERMINED Discharge Planning Comments: CM MET WITH PT IN ROOM TO DISCUSS DISCHARGE PLANNING AND NEEDS. PT REPORTS LIVING AT HOME INDEPENDENTLY AND HAS A FRIEND, JESUS DUNCAN, WHO LIVES WITH PT. JESUS ASSISTS WITH CLEANING, COOKING AND LAUNDRY. PT HAS POWER CHAIR THAT HE NO LONGER USES IT IS "TOO FAST"; PT HAS MANUAL WHEELCHAIR. PT HAS HOME CARE THAT JUST STARTED FROM THE DC AND DOES NOT KNOW WHICH COMPANY THEY SENT OUT. PT HAS NOT BEEN TAKING HIS HOME MEDICATIONS THE [facility] IS STILL TRYING TO GET THEM TO HIM FOR THE PAST TWO WEEKS. PT HAS BEEN TO HIS PRIMARY CARE [facility] DOCTOR AT [facility] TWICE IN THE PAST TWO WEEKS. CM DISCUSSED AVAILABILITY OF HOME HEALTH, REHAB SERVICES AND MEDICAL EQUIPMENT. PT THINKS HE MIGHT NEED REHAB AND ASKED IF HE CAN HAVE REHAB AT THE DC. PT DOES WANT TO BE PLACED ON VA TRANSFER LIST. PT STATES IF HE GOES HOME, HE WILL GO IN A TAXICAB AND HAS FUNDS TO PAY FOR TRANSPORTATION. CM CALLED DC EXPEDITOR, , SPOKE TO ROSEY AND PLACED PT ON VA TRANSFER LIST, NO BEDS AVAILABLE NOW. CM CALLED DC INPATIENT REHAB, , SPOKE TO YOVANI SCALES WHO ADVISED THEY DO NOT ACCEPT DIALYSIS PATIENTS IN THEIR INPATIENT PROGRAM, PT MAY QUALIFY FOR SKILLED COMMUNITY CARE PROGRAM BUT WOULD HAVE TO TRANSFER TO DC MEDICAL FACILITY FOR 14 DAY QUARANTINE PRIOR TO ENTERING. SHE ALSO SUGGESTED COMMUNITY DETENTION FACILITY. CM CALLED MAIRA MONTEMAYOR, [facility] DETENTION FACILITY LIAISON, , DISCUSSED PT AND NEEDS; IF PT WILL GO SO DETENTION AND IF [facility] WILL NOT ACCEPT, THE CLOSEST TWO ARE [facility] IN [place] AND [facility] IN [place]. PT WILL REQUIRE PHYSICAL AND OCCUPATIONAL THERAPY EVALUATONS TO DETERMINE NEEDS FOR REHAB. CM TO FOLLOW AND ASSIST WITH REHAB PLACEMENT IF NEEDED. Template Worker: Eden Malik DCPIA - Discharge Planning Initial Assessment Updated by [id number]: Eden Malik on 08/18/19 4:57 pm * Is the patient Alert and Oriented? Yes * How many steps to enter\\exit or inside your home? RAMP * [facility]CP [facility] * Pharmacy [facility] * Preadmission Environment Home with Family * ADLs Independent * Equipment Power Chair or Electric Scooter Wheelchair * Other Equipment PT NOT USING POWER CHAIR, STATES IT IS TOO FAST. VA - MEDICAL EQUIPMENT PROVIDER * List name and contact numbers for known caregivers / representatives who currently or will assist patient after discharge: JULIO C PLEITEZ, FRIEND, ROCIO VERONIQUE, FRIEND, * Verbal permission to speak to the caregivers and representatives has been obtained from the patient. N/A * Community resources currently utilized Other * Please name any agencies selected above. OUTPATIENT DIALYSIS, [facility], MWF, 1100, [facility] * Additional services required to return to the preadmission environment? Yes * Can the patient safely return to the preadmission environment? Yes * Has this patient been hospitalized within the prior 30 days at any hospital? Yes Last DP export: 08/22/19 1:05 p Patient Name: MARC CHADWICK Page [id number] at 1414 All edits/amendments must be made on the electronic document DICTATION DATE: 08/22/19 141 BRIDGE TOLL COLLECTOR: JANN 08/22/19 141 RPT#: [id number] DC DATE: STATUS: ADM IN [facility] [address] [place] [address] END OF REPORT
--- NOTE | 2019-08-22 15:39 | NUR ---
PT STATES HE IS MISSING HIS GLASSES. CALL PLACED TO [facility] WHERE HE HAD VISION CHECKED. STAFF STATES GLASSES ARE THERE AND CAN BE PICKED UP ANYTIME.
--- NOTE | 2019-08-22 16:40 | NUR ---
[facility] because [facility] not provide [facility]. Per his CM Jhonny Broderick he would like to come to the inpatient rehab at [facility]. This patient can be admitted to [facility] rehab if he waives his VA benefits and agrees to have Medicare as his primary payor source. If he chooses to waive his VA benefits he will be responsible for any Medicare deductible. Discussed this at length with Jhonny JURADO who will discuss with the patient. Lindsay Houston RN Clinical liaison, Rehab
--- NOTE | 2019-08-22 20:00 | NUR ---
PT BACK FROM DIALYSIS. SITTING UP IN BED EATING DINNER TRAY. DENIES OTHER NEEDS. CL IN REACH, WILL CTM
[2019-08-22 20:14] VITALS: BP 150/83
[2019-08-23 00:08] VITALS: BP 169/71
[2019-08-23 03:52] VITALS: BP 93/60
[2019-08-23 05:41] LABS: HEMATOCRIT 34.9 % (42.0-54.0); HEMOGLOBIN 10.4 g/dL (13.5-17.5); MCH 29.2 pg (26.0-34.0); MCHC 29.8 g/dL (31.0-37.0); MEAN PLATELET VOLUME 9.4 fL (7.4-10.4); RBC 3.56 10x6/uL (4.20-6.10); WBC 3.9 10x3/uL (4.8-10.8)
[2019-08-23 08:08] VITALS: BP 101/47
--- NOTE | 2019-08-23 11:57 | MORECARE ---
CASE MANAGEMENT DISCHARGE SUMMARY PATIENT: MARC CHADWICK UNIT: [id number] ADM DATE: 08/17/19 AGE: 74 : [birth year] SEX: M ROOM/BED: D.2112 AUTHOR: ALCIDES,RADAH PHYSICIAN: REFERRING PHYSICIAN: EMA GOMEZ MD DATE OF SERVICE: 08/23/19 Discharge Plan Patient Name: MARC CHADWICK Facility: [facility]:[place] : 1945 Planned Disposition: Inpatient Rehab Anticipated Discharge Date: 08/22/19 Discharge Date: Expected LOS: 5 Initial Reviewer: [id number] Initial Review Date: 08/17/2019 Generated: 08/23/19 12:56 pm Comments DCP- Discharge Planning Updated by [id number]: Eden Malik on 08/23/19 10:[address] Patient Name: MARC CHADWICK Encounter No: [id number] : 1945 Primary Insurance: [facility] ADMINISTRATION Anticipated DC Date: 08-22-2019 Planned Disposition: Inpatient Rehab External Planned Provider: [facility] INPATIENT REHAB DCP follow-up note: CM CALLED [place] OFFICE OF COMM[facility]ITY CARE TO FOLLOW UP ON REQUEST FOR INPATIENT REHAB AT [place], , WAS ADVISED THAT CM NEEDS TO SPEAK TO [facility] WHO WAS NOT IN THE OFFICE AT THE MOMENT AND CM WAS ASKED TO CALL BACK SHORTLY. CM WAS PROVIDED DIRECT NUMBER FOR [facility] OF OFFICE OF COMMUNITY CARE, . CM CALLED AND UPDATED THE [place] EXPEDITOR, , TO UPDATE PT'S STATUS ON TRANSFER REQUEST. CM CONTINUES TO AWAIT AUTHORIZATION FROM [place] FOR INPATIENT REHAB AT [facility]. Eden Malik, CASE MARTHA DCP- Discharge Planning Updated by [id number]: Eden Malik on 08/22/19 1:[address] Patient Name: MARC CHADWICK Encounter No: [id number] : 1945 Primary Insurance: [facility] ADMINISTRATION Anticipated DC Date: 08-22-2019 Planned Disposition: Inpatient Rehab External Planned Provider: [facility] INPATIENT REHAB DCP follow-up note: CM RECEIVED CALL FROM [facility], THEY DECLINED PT THEY ARE NOT ACCEPTING ANY DIALYSIS PATIENTS AT THIS TIME. CM DISCUSSED OPTION OF [facility] FOR SKILLED REHAB. PT STATES HE WOULD LIKE INPATIENT REHAB AT [place] IF THEY WOULD TAKE HIM, HE DOES NOT WANT TO GO TO [place], BUT WOULD IF HE HAS TOO TO GET REHAB FROM THE [place]. CHOICE SIGNED FOR [facility] INPATIENT REHAB AND [facility] SNF. CM SPOKE TO KUSHAL OF INPATIENT REHAB, THEY CAN TAKE PT INTO REHAB IF PT GETS A LETTER FROM [place] ATTESTING THEY WILL CONTRACT PAYMENT OR IF PT WANTS TO SIGN WAIVER OF [place] AND USE HIS MEDICARE WITH [employer]. PT DOES NOT WANT TO PAY A COPAY AND DOES NOT HAVE HIS MEDICARE CARD. CM SPOKE TO DR. LEMUS WHO INFORMED CM THAT PT IS READY TO DISCHARGE TO REHAB. CM CALLED KIANA LEMUS OF [facility], ; KIANA ROSARIO WILL CALL AND TALK TO YOVANI SCALES OF THE [place] INPATIENT [facility] AND DETERMINE WHAT THEY CAN WORK OUT. CM WAITING DETERMINATION FROM [facility] IF THEY WILL CONTRACT FOR INPATIENT REHAB AT [facility]. Eden Malik, CASE MANAGEMENT DCP- Discharge Planning Updated by [id number]: Eden Malik on 08/19/19 2:[address] Patient Name: MARC CHADWICK Encounter No: [id number] : 1945 Primary Insurance: [employer] Anticipated DC Date: 08-20-2019 Planned Disposition: Fdc Facility External Planned Provider: [facility], SK[facility]ED REHAB [place] CONTRACT BED DCP follow-up note: CM RECEIVED INPATIENT REHAB PRESCREENING ORDER. CM SPOKE TO PT IN ROOM, NOTIFIED THAT [place] WILL NOT ACCEPT DIALYSIS PATIENT; CM ADVISED THAT THE [place] DISCUSSED HALFWAY REHAB AT [place] CONTRACTED FACILITY SUCH THE [facility], [facility] IN [place] OR [facility] IN [place]. PT DOES NOT WANT TO GO THE [facility] HE GOT "HORRIBLE TREATMENT" THERE. PT WILL CONSENT TO REFERRAL TO [facility] FOR REHAB SERVICES, CHOICE SIGNED. CHART REVIEWED, ORDERS FOR PHYSICAL AND OCCUPATIONAL THERAPY EVALUATIONS OBTAINED. CM RECEIVED CALL FROM ANAI LEMUS OF [place] CASE MANAGEMENT SERVICES, , AND WAS ADVISED OF PT'S DISCHARGE PLAN. CM NOTIFIED SHANIA LEE. CM WAITING PHYSICAL AND OCCUPATIONAL THERAPY EVALUATION RESULTS AND WILL SEND REFERRAL TO [facility] REHABILITATION ONCE ALL INFORMATION NEEDED FOR REFERRAL IS DOCUMENTED. Eden Malik, CASE MANAGEMENT Appended by Eden Malik on 08/19/2019 14:45 CDT: CM REVIEWED CHART, FAXED REHAB REFERRAL TO [facility] REH[facility]ILITATION IN [place] VIA NIKKIE AT [phone]. CM NOTIFED [place] OF REFERRAL AT [phone]. IF ACCEPTED FOR REHAB AT [facility], CM WILL HAVE TO COORDINATE TEMPORARY DIALYSIS UNIT CHANGE. EDEN MALIK, CASE MANAGEMENT Appended by Eden Malik on 08/19/2019 15:56 CDT: CM RECEIVED CALL FROM JAMES OF [facility]. PT IS ACTIVE AND ON HOSPITAL HOLD. IT PT GOES HOME, [place] WILL RESUME HOME HEALTH SERVICES. CM WAITING ADMISSION DETERMINATION FOR HALFWAY REHAB AT [facility]. IF ACCEPTED FOR REHAB AT [facility], CM WILL HAVE TO COORDINATE TEMPORARY DIALYSIS UNIT CHANGE. CAMILLE AKBAR MANAGEMENT DCP- Discharge Planning Updated by [id number]: Eden Malik on 08/18/19 4:[address] Patient Name: MARC CHADWICK Admission Status: Elective Accout number: [id number] Admission Date: 08-17-2019 : 1945 Admission Diagnosis: Attending: EMA GOMEZ Current LOS: 1 Anticipated DC Date: Planned Disposition: Fdc Facility Primary Insurance: [employer]RATION PLANNED EXTERNAL PROVIDER: TO BE DETERMINED Discharge Planning Comments: CM MET WITH PT IN ROOM TO DISCUSS DISCHARGE PLANNING AND NEEDS. PT REPORTS LIVING AT HOME INDEPENDENTLY AND HAS A FRIEND, JESUS DUNCAN, WHO LIVES WITH PT. JESUS ASSISTS WITH CLEANING, COOKING AND LAUNDRY. PT HAS POWER CHAIR THAT HE NO LONGER USES IT IS "TOO FAST"; PT HAS MANUAL WHEELCHAIR. PT HAS HOME CARE THAT JUST STARTED FROM THE [facility] AND DOES NOT KNOW WHICH COMPANY THEY SENT OUT. PT HAS NOT BEEN TAKING HIS HOME MEDICATIONS THE VA IS STILL TRYING TO GET THEM TO HIM FOR THE PAST TWO WEEKS. PT HAS BEEN TO HIS PRIMARY CARE VA DOCTOR AT [facility] TWICE IN THE PAST TWO WEEKS. CM DISCUSSED AVAILABILITY OF HOME HEALTH, REHAB SERVICES AND MEDICAL EQUIPMENT. PT THINKS HE MIGHT NEED REHAB AND ASKED IF HE CAN HAVE REHAB AT THE VA. PT DOES WANT TO BE PLACED ON VA TRANSFER LIST. PT STATES IF HE GOES HOME, HE WILL GO IN A TAXICAB AND HAS FUNDS TO PAY FOR TRANSPORTATION. CM CALLED [facility] EXPEDITOR, , SPOKE TO ROSEY AND PLACED PT ON [place] TRANSFER LIST, NO BEDS AVAILABLE NOW. CM CALLED [place] [facility], , SPOKE TO YOVANI SCALES WHO ADVISED THEY DO NOT ACCEPT DIALYSIS PATIENTS IN THEIR INPATIENT PROGRAM, PT MAY QUALIFY FOR SKILLED COMMUNITY CARE PROGRAM BUT WOULD HAVE TO TRANSFER TO [place] MEDICAL FACILITY FOR 14 DAY QUARANTINE PRIOR TO ENTERING. SHE ALSO SUGGESTED COMMUNITY HALFWAY FACILITY. CM CALLED MAIRA MONTEMAYOR, [facility] HALFWAY FACILITY LIAISON, , DISCUSSED PT AND NEEDS; IF PT WILL GO SO HALFWAY AND IF [facility] WILL NOT ACCEPT, THE CLOSEST TWO ARE [facility] IN [place] AND [facility] IN [place]. PT WILL REQUIRE PHYSICAL AND OCCUPATIONAL THERAPY EVALUATONS TO DETERMINE NEEDS FOR REHAB. CM TO FOLLOW AND ASSIST WITH REHAB PLACEMENT IF NEEDED. Professor Of Environmental Engineering: Eden Malik DCPIA - Discharge Planning Initial Assessment Updated by [id number]: Eden Malik on 08/18/19 4:57 pm * Is the patient Alert and Oriented? Yes * How many steps to enter\\exit or inside your home? RAMP * PCP [facility] CL[facility] * Pharmacy [facility]IL [facility] * Preadmission Environment Home with Family * ADLs Independent * Equipment Power Chair or Electric Scooter Wheelchair * Other Equipment PT NOT USING POWER CHAIR, STATES IT IS TOO FAST. VA - MEDICAL EQUIPMENT PROVIDER * List name and contact numbers for known caregivers / representatives who currently or will assist patient after discharge: JULIO C PLEITEZ, FRIEND, ROCIO VERONIQUE, FRIEND, * Verbal permission to speak to the caregivers and representatives has been obtained from the patient. N/A * Community resources currently utilized Other * Please name any agencies selected above. OUTPATIENT DIALYSIS, [facility], MWF, 1100, [employer] [employer] [facility]SP[facility] * Additional services required to return to the preadmission environment? Yes * Can the patient safely return to the preadmission environment? Yes * Has this patient been hospitalized within the prior 30 days at any hospital? Yes Coverage Notice Reviewer: [id number] - Eden Malik Notice Issued Date-Time: 08/22/2019 14:00 Notice Type: Patient Choice Letter Notice Delivered To: Patient Relationship to Patient: [employer] Associate Name: Delivery Method: HAND - Hand Delivered Lakisha Days: Prior Verbal Notification: Recipient Understood Notice: Yes Recipient Signature: Yes Med Rec Note Co-signed by Attending: Coverage Notice Comment: [facility] Last DP export: 08/22/19 1:14 p Patient Name: MARC CHADWICK Page [id number] at 1157 All edits/amendments must be made on the electronic document DICTATION DATE: 08/23/19 1156 PRODUCTION REPAIRER: JANN 08/23/19 1156 RPT#: [id number] DC DATE: STATUS: ADM IN [facility] [address] [place] [address] END OF REPORT
[2019-08-23 12:02] VITALS: BP 109/64
[2019-08-23] MEDS ORDERED: ACETAMINOPHEN325 MG PO (13:47)
[2019-08-23] MEDS ORDERED: RENVELA0.8 GM PO (13:47)
[2019-08-23] MEDS ORDERED: RENA-VITE TABL0.8 MG PO (13:48)
--- NOTE | 2019-08-23 13:48 | NUR ---
PER NEVAEH WITH [employer] I CALLED BECCA RAHMAN [facility] FOR DISCHARGE ORDERS. I REVIEWED THE HOSPITAL MEDS WITH HER.
--- NOTE | 2019-08-23 14:11 | MORECARE ---
CASE MANAGEMENT DISCHARGE SUMMARY PATIENT: MARC CHADWICK UNIT: [id number] ADM DATE: 08/17/19 AGE: 74 : [birth year] SEX: M ROOM/BED: D.2112 AUTHOR: ALCIDES,RADHA PHYSICIAN: REFERRING PHYSICIAN: EMA GOMEZ MD DATE OF SERVICE: 08/23/19 Discharge Plan Patient Name: MARC CHADWICK Facility: [facility]:[place] : 1945 Planned Disposition: Home with Home Health Anticipated Discharge Date: 08/23/19 Discharge Date: Expected LOS: 6 Initial Reviewer: [id number] Initial Review Date: 08/17/2019 Generated: 08/23/19 3:10 pm Comments DCP- Discharge Planning Updated by [id number]: Eden Malik on 08/23/19 10:[address] Patient Name: MARC CHADWICK Encounter No: [id number] : 1945 Primary Insurance: [facility] [place] [facility] [employer] Anticipated DC Date: 08-22-2019 Planned Disposition: Inpatient Rehab External Planned Provider: [facility] INPATIENT REHAB DCP follow-up note: CM CALLED [place] OFFICE OF COMMUNITY CARE TO FOLLOW UP ON REQUEST FOR INPATIENT REHAB AT [place], , WAS ADVISED THAT CM NEEDS TO SPEAK TO HUMPHREY WHO WAS NOT IN THE OFFICE AT THE MOMENT AND CM WAS ASKED TO CALL BACK SHORTLY. CM WAS PROVIDED DIRECT NUMBER FOR [facility] OF OFFICE OF COMMUNITY CARE, . CM CALLED AND UPDATED THE [place] EXPEDITOR, , TO UPDATE PT'S STATUS ON TRANSFER REQUEST. CM CONTINUES TO AWAIT AUTHORIZATION FROM NE FOR INPATIENT REHAB AT [facility]. CAMILLE Akbar DCP- Discharge Planning Updated by [id number]: Eden Malik on 08/22/19 1:[address] Patient Name: MARC CHADWICK Encounter No: [id number] : 1945 Primary Insurance: [facility] [place] [facility] [employer] Anticipated DC Date: 08-22-2019 Planned Disposition: Inpatient Rehab External Planned Provider: [facility] INPATIENT REHAB DCP follow-up note: CM RECEIVED CALL FROM [facility], THEY DECLINED PT THEY ARE NOT ACCEPTING ANY DIALYSIS PATIENTS AT THIS TIME. CM DISCUSSED OPTION OF [facility] FOR SKILLED REHAB. PT STATES HE WOULD LIKE INPATIENT REHAB AT [place] IF THEY WOULD TAKE HIM, HE DOES NOT WANT TO GO TO [place], BUT WOULD IF HE HAS TOO TO GET REHAB FROM THE NE. CHOICE SIGNED FOR [facility] INPATIENT [facility]AB AND [facility] SN[facility]. CM SPOKE TO KUSHAL OF INPATIENT REHAB, THEY CAN TAKE PT INTO REHAB IF PT GETS A LETTER FROM NE ATTESTING THEY WILL CONTRACT PAYMENT OR IF PT WANTS TO SIGN WAIVER OF NE AND USE HIS MEDICARE WITH [employer]. PT DOES NOT WANT TO PAY A COPAY AND DOES NOT HAVE HIS MEDICARE CARD. CM SPOKE TO DR. LEMUS WHO INFORMED CM THAT PT IS READY TO DISCHARGE TO REHAB. CM CALLED KIANA LEMUS OF [facility], ; KIANA ROSARIO WILL CALL AND TALK TO YOVANI SCALES OF THE NE INPATIENT REHAB AND DETERMINE WHAT THEY CAN WORK OUT. CM WAITING DETERMINATION FROM [facility] IF THEY WILL CONTRACT FOR INPATIENT REHAB AT [facility]. Eden Malik, CASE MANAGEMENT DCP- Discharge Planning Updated by [id number]: Eden Malik on 08/19/19 2:[address] Patient Name: MARC CHADWICK Encounter No: [id number] : 1945 Primary Insurance: [employer] Anticipated DC Date: 08-20-2019 Planned Disposition: Alf Facility External Planned Provider: [facility], SKILLED REHAB [place] CONTRACT BED DCP follow-up note: CM RECEIVED INPATIENT REHAB PRESCREENING ORDER. CM SPOKE TO PT IN ROOM, NOTIFIED THAT NE WILL NOT ACCEPT DIALYSIS PATIENT; CM ADVISED THAT THE NE DISCUSSED SHELTER REHAB AT NE CONTRACTED FACILITY SUCH THE [facility], [facility] IN [place] OR [facility] IN [place]. PT DOES NOT WANT TO GO THE [facility] HE GOT "HORRIBLE TREATMENT" THERE. PT WILL CONSENT TO REFERRAL TO [facility] FOR RE[facility] SERVICES, CHOICE SIGNED. CHART REVIEWED, ORDERS FOR PHYSICAL AND OCCUPATIONAL THERAPY EVALUATIONS OBTAINED. CM RECEIVED CALL FROM ANAI LEMUS OF NE CASE MANAGEMENT SERVICES, , AND WAS ADVISED OF PT'S DISCHARGE PLAN. CM NOTIFIED SHANIA LEE. CM WAITING PHYSICAL AND OCCUPATIONAL THERAPY EVALUATION RESULTS AND WILL SEND REFERRAL TO [facility]IT[facility] ONCE ALL INFORMATION NEEDED FOR REFERRAL IS DOCUMENTED. Eden Malik, CASE MANAGEMENT Appended by Eden Malik on 08/19/2019 14:45 CDT: CM REVIEWED CHART, FAXED REHAB REFERRAL TO [facility] IN [place] VIA [facility]IE AT [phone]. CM NOTIFED NIKKIE OF REFERRAL AT [phone]. IF ACCEPTED FOR REHAB AT [facility], CM WILL HAVE TO COORDINATE TEMPORARY DIALYSIS UNIT CHANGE. EDEN MALIK CASE MANAGEMENT Appended by Eden Malik on 08/19/2019 15:56 CDT: CM RECEIVED CALL FROM JAMES OF [facility]. PT IS ACTIVE AND ON HOSPITAL HOLD. IT PT GOES HOME, [facility] WILL RESUME HOME HEALTH SERVICES. CM WAITING ADMISSION DETERMINATION FOR SHELTER REHAB AT [facility]. IF ACCEPTED FOR REHAB AT [facility], CM WILL HAVE TO COORDINATE TEMPORARY DIALYSIS UNIT CHANGE. CAMILLE AKBAR MANAGEMENT DCP- Discharge Planning Updated by [id number]: Eden Malik on 08/18/19 4:[address] Patient Name: MARC CHADWICK Admission Status: Elective Accout number: [id number] Admission Date: 08-17-2019 : 1945 Admission Diagnosis: Attending: EMA GOMEZ Current LOS: 1 Anticipated DC Date: Planned Disposition: Alf Facility Primary Insurance: [employer] ADMINISTRATION PLANNED EXTERNAL PROVIDER: TO BE DETERMINED Discharge Planning Comments: CM MET WITH PT IN ROOM TO DISCUSS DISCHARGE PLANNING AND NEEDS. PT REPORTS LIVING AT HOME INDEPENDENTLY AND HAS A FRIEND, JESUS DUNCAN, WHO LIVES WITH PT. JESUS ASSISTS WITH CLEANING, COOKING AND LAUNDRY. PT HAS POWER CHAIR THAT HE NO LONGER USES IT IS "TOO FAST"; PT HAS MANUAL WHEELCHAIR. PT [facility] AND DOES NOT KNOW WHICH COMPANY THEY SENT OUT. PT HAS NOT BEEN TAKING HIS HOME MEDICATIONS THE [facility] IS STILL TRYING TO GET THEM TO HIM FOR THE PAST TWO WEEKS. PT HAS BEEN TO HIS PRIMARY CARE [facility] DOCTOR AT [facility] TWICE IN THE PAST TWO WEEKS. CM DISCUSSED AVAILABILITY OF HOME HEALTH, REHAB SERVICES AND MEDICAL EQUIPMENT. PT THINKS HE MIGHT NEED REHAB AND ASKED IF HE CAN HAVE [facility]AB AT [facility]. PT DOES WANT TO BE PLACED ON VA TRANSFER LIST. PT STATES IF HE GOES HOME, HE WILL GO IN A TAXICAB AND HAS FUNDS TO PAY FOR TRANSPORTATION. CM CALLED VA EXPEDITOR, , SPOKE TO ROSEY AND PLACED PT ON NE TRANSFER LIST, NO BEDS AVAILABLE NOW. CM CALLED NE INPATIENT REHAB, , SPOKE TO YOVANI SCALES WHO ADVISED THEY DO NOT ACCEPT DIALYSIS PATIENTS IN THEIR INPATIENT PROGRAM, PT MAY QUALIFY FOR SKILLED COMMUNITY CARE PROGRAM BUT WOULD HAVE TO TRANSFER TO NE MEDICAL FACILITY FOR 14 DAY QUARANTINE PRIOR TO ENTERING. SHE ALSO SUGGESTED COMMUNITY SHELTER FACILITY. CM CALLED MAIRA MONTEMAYOR, [facility] LIA[facility], , DISCUSSED PT AND NEEDS; IF PT WILL GO SO SHE[facility]TER AND IF THE [facility] WILL NOT ACCEPT, THE CLOSEST TWO ARE [facility] IN [place] AND [facility] IN [place]. PT WILL REQUIRE PHYSICAL AND OCCUPATIONAL THERAPY EVALUATONS TO DETERMINE NEEDS FOR REHAB. CM TO FOLLOW AND ASSIST WITH REHAB PLACEMENT IF NEEDED. Security Advisor: Eden Malik DCPIA - Discharge Planning Initial Assessment Updated by [id number]: Eden Malik on 08/18/19 4:57 pm * Is the patient Alert and Oriented? Yes * How many steps to enter\\exit or inside your home? RAMP * [facility] * [facility]acy [facility] * Preadmission Environment Home with Family * ADLs Independent * Equipment Power Chair or Electric Scooter Wheelchair * Other Equipment PT NOT USING POWER CHAIR, STATES IT IS TOO FAST. VA - MEDICAL EQUIPMENT PROVIDER * List name and contact numbers for known caregivers / representatives who currently or will assist patient after discharge: JULIO C PLEITEZ, FRIEND, ROCIO VERONIQUE, FRIEND, * Verbal permission to speak to the caregivers and representatives has been obtained from the patient. N/A * Community resources currently utilized Other * Please name any agencies selected above. OUTPATIENT DIALYSIS, [facility], MWF, 1100, [facility] * Additional services required to return to the preadmission environment? Yes * Can the patient safely return to the preadmission environment? Yes * Has this patient been hospitalized within the prior 30 days at any hospital? Yes Coverage Notice Reviewer: [id number] - Eden Malik Notice Issued Date-Time: 08/22/2019 14:00 Notice Type: Patient Choice Letter Notice Delivered To: Patient Relationship to Patient: Traveling Auditor Name: Delivery Method: HAND - Hand Delivered Lakisha Days: Prior Verbal Notification: Recipient Understood Notice: Yes Recipient Signature: Yes Med Rec Note Co-signed by Attending: Coverage Notice Comment: [facility] INPT REHAB [facility] Last DP export: 08/23/19 10:57 a Patient Name: MARC CHADWICK Page [id number] at 1411 All edits/amendments must be made on the electronic document DICTATION DATE: 08/23/191409 DISH NETWORK INSTALLER: JANN 08/23/19 1410 RPT#: [id number] DC DATE: STATUS: ADM IN [facility] [address] [place] [address] END OF REPORT
--- NOTE | 2019-08-23 14:19 | MORECARE ---
CASE MANAGEMENT DISCHARGE SUMMARY PATIENT: MARC CHADWICK UNIT: [id number] ADM DATE: 08/17/19 AGE: 74 : [birth year] SEX: M ROOM/BED: D.2112 AUTHOR: ALCIDES,DOC PHYSICIAN: REFERRING PHYSICIAN: EMA GOMEZ MD DATE OF SERVICE: 08/23/19 Discharge Plan Patient Name: MARC CHADWICK [facility] [facility] 1945 Planned Disposition: Home with Home Health Anticipated Discharge Date: 08/23/19 Discharge Date: Expected LOS: 6 Initial Reviewer: [id number] Initial Review Date: 08/17/2019 Generated: 08/23/19 3:19 pm Comments DCP- Discharge Planning Updated by [id number]: Eden Malik on 08/23/19 1:[address] Patient Name: MARC CHADWICK Encounter No: [id number] : 1945 Primary Insurance: [employer] Anticipated DC Date: 08-22-2019 Planned Disposition: Inpatient Rehab External Planned Provider: [facility] INPATIENT REHAB DCP follow-up note: RHIANNON CALLED [place] OFFICE OF COMMUNITY CARE TO FOLLOW UP ON REQUEST FOR INPATIENT REHAB AT [place], , WAS ADVISED THAT CM NEEDS TO SPEAK TO HUMPHREY WHO WAS NOT IN THE OFFICE AT THE MOMENT AND CM WAS ASKED TO CALL BACK SHORTLY. CM WAS PROVIDED DIRECT NUMBER FOR [facility] OF OFFICE OF COMMUNITY CARE, . CM CALLED AND UPDATED THE [place] EXPEDITOR, , TO UPDATE PT'S STATUS ON TRANSFER REQUEST. CM CONTINUES TO AWAIT AUTHORIZATION FROM [place] FOR INPATIENT REHAB AT [facility]. Eden Malik, CASE MANAGEMENT Appended by Eden Malik on 08/23/2019 14:13 CDT: CM RECEIVED CALL BACK FROM KIANA LEMUS OF [place] COMMUNITY CARE OFFICE, ; KIANA ROSARIO ADVISED THE ND DOES NOT WANT TO TRANSFER PT TO HOSPITAL HE IS STABLE, THEY DO NOT WANT TO PAY FOR INPATIENT REHAB AT [place] AND ADVISED PT CAN GO TO COMMUNITY NURSING FACILITY WITH VA CONTRACT OR USE HIS MEDICARE FOR INPATIENT REHAB AT FACILITY OF HIS CHOICE. CM SPOKE TO PT IN ROOM, PROVIDED PT WITH THE ABOVE OPTIONS. PT DOES NOT WANT REHAB AT ALL NOW, HE FEELS IF HE MAY SOON AND DOES NOT WANT TO IN A HOSPITAL OR RETIREMENT. PT STATES HE WANTS TO DISCHARGE HOME TODAY AND WANTS HIS HOME HEALTH WITH [facility] RESUMED. PT REPORTS Otilia IS FRIEND JESUS IS AT HOME AND CAN ASSIST WITH HIS CARE IF NEEDED. PT REPORTS HE WILL TAKE A T AXI HOME AND HAS THE MONEY TO PAY FOR TRANSPORTATION WITH HIM. CM DISCUSSED POSSIBLITY OF HOSPICE, PT REPORTS CM CAN TELL HOME HEALTH AND HE WOULD BE WILLING TO MEET WITH HOSPICE TO DISCUSS WHAT THEY CAN DO FOR HIM, BUT WANTS HOME HEALTH NOW. CHOICE SIGNED FOR HOME HEALTH AND DECLINING REHAB, INPATIENT AND [facility]. CM NOTIFIED BEDSIDE NURSE. CM NOTIED IPN BECCA RAHMAN WHO PROVIDED DISCHARGE ORDER. CM NOTIFIED MATCHER OPERATOR NURSE. CM CALLED AND LEFT DETAILED MESSAGE FROM ANAI OF [facility] CASE MANAGEMENT. CM CALLED [facility], , SPOKE TO CLAUDIA, PROVIDED INFORMATION FOR RESUMPTION OF CARE AND ALSO COMMUNICATED PT'S OPENESS TO DISCUSS HOSPICE WITH SOMEONE. CM FAXED DISCHARGE INFORMATION TO [facility] AT [phone]. EDEN MALIK, CASE MANAGEMENT DCP- Discharge Planning Updated by [id number]: Eden Malik on 08/22/19 1:[address] Patient Name: MARC CHADWICK Encounter No: [id number] : 1945 Primary Insurance: [employer] Anticipated DC Date: 08-22-2019 Planned Disposition: Inpatient Rehab External Planned Provider: [facility] INPATIENT REHAB DCP follow-up note: CM RECEIVED CALL FROM [facility] FAC[facility], THEY DECLINED PT THEY ARE NOT ACCEPTING ANY DIALYSIS PATIENTS AT THIS TIME. CM DISCUSSED OPTION OF [facility] FOR SKILLED REHAB. PT STATES HE WOULD LIKE INPATIENT REHAB AT [place] IF THEY WOULD TAKE HIM, HE DOES NOT WANT TO GO TO [place], BUT WOULD IF HE HAS TOO TO GET REHAB FROM THE [place]. CHOICE SIGNED FOR [facility] INPATIENT REHAB AND [facility] SNF. CM SPOKE TO KUSHAL OF INPATIENT REHAB, THEY CAN TAKE PT INTO REHAB IF PT GETS A LETTER FROM ND ATTESTING THEY WILL CONTRACT PAYMENT OR IF PT WANTS TO SIGN WAIVER OF ND AND USE HIS MEDICARE WITH [employer]. PT DOES NOT WANT TO PAY A [employer] AND DOES NOT HAVE HIS MEDICARE CARD. RHIANNON SPOKE TO DR. LEMUS WHO INFORMED CM THAT PT IS READY TO DISCHARGE TO REHAB. CM CALLED KIANA LEMUS OF [place] COMM[facility], ; KIANA ROSARIO WILL CALL AND TALK TO YOVANI SCALES OF THE [place] INPATIENT REHAB AND DETERMINE WHAT THEY CAN WORK OUT. CM WAITING DETERMINATION FROM [facility] IF THEY WILL CONTRACT FOR INPATIENT REHAB AT [facility]. CAMILLE Franco DCP- Discharge Planning Updated by [id number]: Eden Malik on 08/19/19 2:[address] Patient Name: MARC CHADWICK Encounter No: [id number] : 1945 Primary Insurance: [employer] Anticipated DC Date: 08-20-2019 Planned Disposition: Half-Way Facility External Planned Provider: [facility], SKILLED REHAB [place] CONTRACT BED DCP follow-up note: CM RECEIVED INPATIENT REHAB PRESCREENING ORDER. CM SPOKE TO PT IN ROOM, NOTIFIED THAT [place] WILL NOT ACCEPT DIALYSIS PATIENT; CM ADVISED THAT THE ND DISCUSSED [facility] REHAB AT ND CONTRACTED FACILITY SUCH THE [facility] IN [place] OR [facility] IN [place]. PT DOES NOT WANT TO GO THE [facility] HE GOT "HORRIBLE TREATMENT" THERE. PT WILL CONSENT TO REFERRAL TO [facility] FOR REHAB SERVICES, CHOICE SIGNED. CHART REVIEWED, ORDERS FOR PHYSICAL AND OCCUPATIONAL THERAPY EVALUATIONS OBTAINED. CM RECEIVED CALL FROM ANAI LEMUS OF [place] CASE MANAGEMENT SERVICES, , AND WAS ADVISED OF PT'S DISCHARGE PLAN. CM NOTIFIED SHANIA LEE. CM WAITING PHYSICAL AND OCCUPATIONAL THERAPY EVALUATION RESULTS AND WILL SEND REFERRAL TO [facility] ONCE ALL INFORMATION NEEDED FOR REFERRAL IS DOCUMENTED. CAMILLE Franco MANAGEMENT Appended by Eden Malik on 08/19/2019 14:45 CDT: RHIANNON REVIEWED CHART, FAXED REHAB REFERRAL TO [facility] IN [place] VIA [facility] AT [phone]. CM NOTIFED [facility] OF REFERRAL AT [phone]. IF ACCEPTED FOR REHAB AT [facility], CM WILL HAVE TO COORDINATE TEMPORARY DIALYSIS UNIT CHANGE. EDEN MALIK CASE MANAGEMENT Appended by Eden Malik on 08/19/2019 15:56 CDT: RHIANNON RECEIVED CALL FROM JAMES OF [facility]. PT IS ACTIVE AND ON HOSPITAL HOLD. IT PT GOES HOME, [facility] WILL RESUME HOME HEALTH SERVICES. CM WAITING ADMISSION DETERMINATION FOR [facility] REHAB AT [facility]. IF ACCEPTED FOR REHAB AT [facility], CM WILL HAVE TO COORDINATE TEMPORARY DIALYSIS UNIT CHANGE. EDEN MALIK, CASE MANAGEMENT DCP- Discharge Planning Updated by [id number]: Eden Malik on 08/18/19 4:[address] Patient Name: MARC CHADWICK Admission Status: Elective Accout number: [id number] Admission Date: 08-17-2019 : 1945 Admission Diagnosis: Attending: EMA GOMEZ Current LOS: 1 Anticipated DC Date: Planned Disposition: Half-Way Facility Primary Insurance: [employer] ADMINISTRATION PLANNED EXTERNAL PROVIDER: TO BE DETERMINED Discharge Planning Comments: CM MET WITH PT IN ROOM TO DISCUSS DISCHARGE PLANNING AND NEEDS. PT REPORTS LIVING AT HOME INDEPENDENTLY AND HAS A FRIEND, JESUS DUNCAN, WHO LIVES WITH PT. JESUS ASSISTS WITH CLEANING, COOKING AND LAUNDRY. PT HAS POWER CHAIR THAT HE NO LONGER USES IT IS "TOO FAST"; PT HAS MANUAL WHEELCHAIR. PT HAS HOME CARE THAT JUST STARTED FROM THE [facility] AND DOES NOT KNOW WHICH COMPANY THEY SENT OUT. PT HAS NOT BEEN TAKING HIS HOME MEDICATIONS THE ND IS STILL TRYING TO GET THEM TO HIM FOR THE PAST TWO WEEKS. PT HAS BEEN TO HIS PRIMARY CARE VA DOCTOR AT [facility] TWICE IN THE PAST TWO WEEKS. CM DISCUSSED AVAILABILITY OF HOME HEALTH, REHAB SERVICES AND MEDICAL EQUIPMENT. PT THINKS HE MIGHT NEED REHAB AND ASKED IF HE CAN HAVE REHAB AT THE ND. PT DOES WANT TO BE PLACED ON VA TRANSFER LIST. PT STATES IF HE GOES HOME, HE WILL GO IN A [facility] AND HAS FUNDS TO PAY FOR TRANSPORTATION. CM CALLED VA EXPEDITOR, , SPOKE TO ROSEY AND PLACED PT ON VA TRANSFER LIST, NO BEDS AVAILABLE NOW. CM CALLED [facility] INPATIENT REHAB, , SPOKE TO YOVANI SCALES WHO ADVISED THEY DO NOT ACCEPT DIALYSIS PATIENTS IN THEIR INPATIENT PROGRAM, PT MAY QUALIFY FOR SKILLED COMMUNITY CARE PROGRAM BUT WOULD HAVE TO TRANSFER TO [facility] MEDICAL FACILITY FOR 14 DAY QUARANTINE PRIOR TO ENTERING. SHE ALSO SUGGESTED COMMUNITY [facility] FACILITY. CM CALLED MAIRA MONTEMAYOR, [facility]AC[facility] LIAISON, , DISCUSSED PT AND NEEDS; IF PT WILL GO SO [facility] AND IF THE [facility] WILL NOT ACCEPT, THE CLOSEST TWO ARE [facility] IN [place] AND [facility] IN [place]. PT WILL REQUIRE PHYSICAL AND OCCUPATIONAL THERAPY EVALUATONS TO DETERMINE NEEDS FOR REHAB. CM TO FOLLOW AND ASSIST WITH REHAB PLACEMENT IF NEEDED. Python Java Developer: Eden Malik DCPIA - Discharge Planning Initial Assessment Updated by [id number]: Eden Malik on 08/18/19 4:57 pm * Is the patient Alert and Oriented? Yes * How many steps to enter\\exit or inside your home? RAMP * [facility] * Pharmacy [facility] * Preadmission Environment Home with Family * ADLs Independent * Equipment Power Chair or Electric Scooter Wheelchair * Other Equipment PT NOT USING POWER CHAIR, STATES IT IS TOO FAST. VA - MEDICAL EQUIPMENT PROVIDER * List name and contact numbers for known caregivers / representatives who currently or will assist patient after discharge: JULIO C PLEITEZ, FRIEND, ROCIO PIPER, FRIEND, * Verbal permission to speak to the caregivers and representatives has been obtained from the patient. N/A * Community resources currently utilized Other * Please name any agencies selected above. OUTPATIENT DIALYSIS, [facility], MWF, 1100, [facility] * Additional services required to return to the preadmission environment? Yes * Can the patient safely return to the preadmission environment? Yes * Has this patient been hospitalized within the prior 30 days at any hospital? Yes Coverage Notice Reviewer: [id number] Farooq Malik Notice Issued Date-Time: 08/22/2019 14:00 Notice Type: Patient Choice Letter Notice Delivered To: Patient Relationship to Patient: Hedge Trimmer Name: Delivery Method: HAND - Hand Delivered Lakisha Days: Prior Verbal Notification: Recipient Understood Notice: Yes Recipient Signature: Yes Med Rec Note Co-signed by Attending: Coverage Notice Comment: [facility] IN[facility] RE[facility] Reviewer: [id number] Farooq Malik Notice Issued Date-Time: 08/23/2019 13:20 Notice Type: Patient Choice Letter Notice Delivered To: Patient Relationship to Patient: Hedge Trimmer Name: Delivery Method: HAND - Hand Delivered Lakisha Days: Prior Verbal Notification: Recipient Understood Notice: Yes Recipient Signature: Yes Med Rec Note Co-signed by Attending: Coverage Notice Comment: [facility] ACC[facility]PT[facility] INPT / SNF REHAB REFUSAL Last DP export: 08/23/19 1:11 p Patient Name: MARC CHADWICK Page [phone] at 1419 All edits/amendments must be made on the electronic document DICTATION DATE: 08/23/191418 INSPECTOR SALVAGE: JANN 08/23/191418 RPT#: [id number] DC DATE: STATUS: ADM IN [facility] [address] [place] [address] END OF REPORT
--- NOTE | 2019-08-23 14:35 | NUR ---
PT DISCHARGE INSTRUCTIONS REVIEWED AND SIGNED. ALREADY IN WHEELCHAIR, BEING WHEELED OUT TO FRONT WHERE FRIEND IS PICKING HIM UP.
--- NOTE | 2019-08-23 15:19 | MORECARE ---
CASE MANAGEMENT DISCHARGE SUMMARY PATIENT: MARC CHADWICK UNIT: [id number] ADM DATE: 08/17/19 AGE: 74 : [birth year] SEX: M ROOM/BED: D.2112 AUTHOR: ALCIDES,DOC PHYSICIAN: REFERRING PHYSICIAN: EMA GOMEZ MD DATE OF SERVICE: 08/23/19 Discharge Plan Patient Name: MARC CHADWICK [facility] [facility] 1945 Planned Disposition: Home with Home Health Anticipated Discharge Date: 08/23/19 Discharge Date: 08/23/2019 Expected LOS: 6 Initial Reviewer: [id number] Initial Review Date: 08/17/2019 Generated: 08/23/19 4:18 pm Comments DCP- Discharge Planning Updated by [id number]: Eden Malik on 08/23/19 1:[address] Patient Name: MARC CHADWICK Encounter No: [id number] : 1945 Primary Insurance: [employer] Anticipated DC Date: 08-22-2019 Planned Disposition: Inpatient Rehab External Planned Provider: [facility] INPATIENT REHAB DCP follow-up note: CM CALLED [place] OFFICE OF COMMUNITY CARE TO FOLLOW UP ON REQUEST FOR INPATIENT REHAB AT [facility], , WAS ADVISED THAT CM NEEDS TO SPEAK TO HUMPHREY WHO WAS NOT IN THE OFFICE AT THE MOMENT AND CM WAS ASKED TO CALL BACK SHORTLY. CM WAS PROVIDED DIRECT NUMBER FOR [facility] OF OFFICE OF COMMUNITY CARE, . CM CALLED AND UPDATED THE [place] EXPEDITOR, , TO UPDATE PT'S STATUS ON TRANSFER REQUEST. CM CONTINUES TO AWAIT AUTHORIZATION FROM [place] FOR INPATIENT REHAB AT [facility]. Eden Malik, CASE MANAGEMENT Appended by Eden Malik on 08/23/2019 14:13 CDT: CM RECEIVED CALL BACK FROM KIANA LEMUS OF [place] COMMUNITY CARE OFFICE, ; KIANA ROSARIO ADVISED THE VA DOES NOT WANT TO TRANSFER PT TO HOSPITAL HE IS STABLE, THEY DO NOT WANT TO PAY FOR INPATIENT REHAB AT [facility] AND ADVISED PT CAN GO TO COMMUNITY NURSING FACILITY WITH VA CONTRACT OR USE HIS MEDICARE FOR INPATIENT REHAB AT FACILITY OF HIS CHOICE. CM SPOKE TO PT IN ROOM, PROVIDED PT WITH THE ABOVE OPTIONS. PT DOES NOT WANT REHAB AT ALL NOW, HE FEELS IF HE MAY SOON AND DOES NOT WANT TO IN A HOSPITAL OR HALF-WAY. PT STATES HE WANTS TO DISCHARGE HOME TODAY AND WANTS HIS HOME HEALTH WITH [facility] RESUMED. PT REPORTS Otilia IS FRIEND JESUS IS AT HOME AND CAN ASSIST WITH HIS CARE IF NEEDED. PT REPORTS HE WILL TAKE A T AXI HOME AND HAS THE MONEY TO PAY FOR TRANSPORTATION WITH HIM. CM DISCUSSED POSSIBLITY OF HOSPICE, PT REPORTS CM CAN TELL HOME HEALTH AND HE WOULD BE WILLING TO MEET WITH HOSPICE TO DISCUSS WHAT THEY CAN DO FOR HIM, BUT WANTS HOME HEALTH NOW. CHOICE SIGNED FOR HOME HEALTH AND DECLINING REHAB, INPATIENT AND GROUP HOME. CM NOTIFIED BEDSIDE NURSE. CM NOTIED IPN BECCA RAHMAN WHO PROVIDED DISCHARGE ORDER. CM NOTIFIED MUSIC COPYIST NURSE. CM CALLED AND LEFT DETAILED MESSAGE FROM ANAI OF [place] COMMUNITY [facility] CASE MANAGEMENT. CM CALLED [facility], , SPOKE TO CLAUDIA, PROVIDED INFORMATION FOR RESUMPTION OF CARE AND ALSO COMMUNICATED PT'S OPENESS TO DISCUSS HOSPICE WITH SOMEONE. CM FAXED DISCHARGE INFORMATION TO [facility] AT [phone]. EDEN MALIK, CASE MANAGEMENT DCP- Discharge Planning Updated by [email or web address]: Eden Malik on 08/22/19 1:[address] Patient Name: MARC CHADWICK Encounter No: [id number] : 1945 Primary Insurance: [employer] Anticipated DC Date: 08-22-2019 Planned Disposition: Inpatient Rehab External Planned Provider: [facility] INPATIENT REHAB DCP follow-up note: CM RECEIVED CALL FROM [facility], THEY DECLINED PT THEY ARE NOT ACCEPTING ANY DIALYSIS PATIENTS AT THIS TIME. CM DISCUSSED OPTION OF [facility] FOR SKILLED REHAB. PT STATES HE WOULD LIKE INPATIENT REHAB AT [facility] IF THEY WOULD TAKE HIM, HE DOES NOT WANT TO GO TO [place], BUT WOULD IF HE HAS TOO TO GET REHAB FROM THE [place]. CHOICE SIGNED FOR [facility] INPATIENT [facility]HAB AND [facility] SN[facility]. CM SPOKE TO KUSHAL OF INPATIENT REHAB, THEY CAN TAKE PT INTO REHAB IF PT GETS A LETTER FROM [place] ATTESTING THEY WILL CONTRACT PAYMENT OR IF PT WANTS TO SIGN WAIVER OF [place] AND USE HIS MEDICARE WITH COPAY. PT DOES NOT WANT TO PAY A COPAY AND DOES NOT HAVE HIS MEDICARE CARD. RHIANNON SPOKE TO DR. LEMUS WHO INFORMED CM THAT PT IS READY TO DISCHARGE TO REHAB. CM CALLED KIANA LEMUS OF [facility], ; KIANA ROSARIO WILL CALL AND TALK TO YOVANI SCALES OF THE [place] INPATIENT REHAB AND DETERMINE WHAT THEY CAN WORK OUT. CM WAITING DETERMINATION FROM [facility] IF THEY WILL CONTRACT FOR INPATIENT REHAB AT [facility]. CAMILLE Franco DCP- Discharge Planning Updated by [id number]: Eden Malik on 08/19/19 2:[address] Patient Name: MARC CHADWICK Encounter No: [id number] : 1945 Primary Insurance: [employer] Anticipated DC Date: 08-20-2019 Planned Disposition: Half-Way Facility External Planned Provider: [facility], SKILLED REHAB [facility] CONTRACT BED DCP follow-up note: CM RECEIVED INPATIENT REHAB PRESCREENING ORDER. CM SPOKE TO PT IN ROOM, NOTIFIED THAT [place] WILL NOT ACCEPT DIALYSIS PATIENT; CM ADVISED THAT THE [place] DISCUSSED GROUP HOME REHAB AT [place] CONTRACTED FACILITY SUCH THE [facility] [place] OR [facility] IN [place]. PT DOES NOT WANT TO GO THE [facility] HE GOT "HORRIBLE TREATMENT" THERE. PT WILL CONSENT TO REFERRAL TO [facility] FOR REHAB SERVICES, CHOICE SIGNED. CHART REVIEWED, ORDERS FOR PHYSICAL AND OCCUPATIONAL THERAPY EVALUATIONS OBTAINED. CM RECEIVED CALL FROM ANAI LEMUS OF [place] CASE MANAGEMENT SERVICES, , AND WAS ADVISED OF PT'S DISCHARGE PLAN. CM NOTIFIED SHANIA LEE. CM WAITING PHYSICAL AND OCCUPATIONAL THERAPY EVALUATION RESULTS AND WILL SEND REFERRAL TO [facility] ONCE ALL INFORMATION NEEDED FOR REFERRAL IS DOCUMENTED. Eden Malik CASE MANAGEMENT Appended by Eden Malik on 08/19/2019 14:45 CDT: RHIANNON REVIEWED CHART, FAXED REHAB REFERRAL TO [facility] IN [place] VIA [facility] AT [phone]. RHIANNON NOTIFED [facility] OF REFERRAL AT [phone]. IF ACCEPTED FOR REHAB AT [facility], CM WILL HAVE TO COORDINATE TEMPORARY DIALYSIS UNIT CHANGE. EDEN MALIK CASE MANAGEMENT Appended by Eden Malik on 08/19/2019 15:56 CDT: RHIANNON RECEIVED CALL FROM JAMES OF [facility]. PT IS ACTIVE AND ON HOSPITAL HOLD. IT PT GOES HOME, [facility] WILL RESUME HOME HEALTH SERVICES. CM WAITING ADMISSION DETERMINATION FOR GROUP HOME REHAB AT [facility]. IF ACCEPTED FOR REHAB AT [facility], CM WILL HAVE TO COORDINATE TEMPORARY DIALYSIS UNIT CHANGE. EDEN MALIK, CASE MANAGEMENT DCP- Discharge Planning Updated by [id number]: Eden Malik on 08/18/19 4:[address] Patient Name: MARC CHADWICK Admission Status: Elective Accout number: [id number] Admission Date: 08-17-2019 : 1945 Admission Diagnosis: Attending: EMA GOMEZ Current LOS: 1 Anticipated DC Date: Planned Disposition: Half-Way Facility Primary Insurance: Net Transmit & Receive ADMINISTRATION PLANNED EXTERNAL PROVIDER: TO BE DETERMINED Discharge Planning Comments: CM MET WITH PT IN ROOM TO DISCUSS DISCHARGE PLANNING AND NEEDS. PT REPORTS LIVING AT HOME INDEPENDENTLY AND HAS A FRIEND, JESUS DUNCAN, WHO LIVES WITH PT. JESUS ASSISTS WITH CLEANING, COOKING AND LAUNDRY. PT HAS POWER CHAIR THAT HE NO LONGER USES IT IS "TOO FAST"; PT HAS MANUAL WHEELCHAIR. PT HAS HOME CARE THAT JUST STARTED FROM THE [place] AND DOES NOT KNOW WHICH COMPANY THEY SENT OUT. PT HAS NOT BEEN TAKING HIS HOME MEDICATIONS THE VA IS STILL TRYING TO GET THEM TO HIM FOR THE PAST TWO WEEKS. PT HAS BEEN TO HIS PRIMARY CARE [facility] DOCTOR [facility] TWICE IN THE PAST TWO WEEKS. CM DISCUSSED AVAILABILITY OF HOME HEALTH, REHAB SERVICES AND MEDICAL EQUIPMENT. PT THINKS HE MIGHT NEED REHAB AND ASKED IF HE CAN HAVE REHAB AT THE [place]. PT DOES WANT TO BE PLACED ON VA TRANSFER LIST. PT STATES IF HE GOES HOME, HE WILL GO IN A [facility]AXICAB AND HAS FUNDS TO PAY FOR TRANSPORTATION. CM CALLED VA EXPEDITOR, , SPOKE TO ROSEY AND PLACED PT ON VA TRANSFER LIST, NO BEDS AVAILABLE NOW. CM CALLED [place] INPATIENT REHAB, , SPOKE TO YOVANI SCALES WHO ADVISED THEY DO NOT ACCEPT DIALYSIS PATIENTS IN THEIR INPATIENT PROGRAM, PT MAY QUALIFY FOR SKILLED COMMUNITY CARE PROGRAM BUT WOULD HAVE TO TRANSFER TO [place] MEDICAL FACILITY FOR 14 DAY QUARANTINE PRIOR TO ENTERING. SHE ALSO SUGGESTED COMMUNITY GROUP HOME FACILITY. CM CALLED MAIRA MONTEMAYOR, [facility], , DISCUSSED PT AND NEEDS; IF PT WILL GO SO GROUP HOME AND IF THE [facility] WILL NOT ACCEPT, THE CLOSEST TWO ARE [facility] IN [facility] IN [place]. PT WILL REQUIRE PHYSICAL AND OCCUPATIONAL THERAPY EVALUATONS TO DETERMINE NEEDS FOR REHAB. CM TO FOLLOW AND ASSIST WITH REHAB PLACEMENT IF NEEDED. Radio Frequency Design Engineer: Eden Malik DCPIA - Discharge Planning Initial Assessment Updated by [id number]: Eden Malik on 08/18/19 4:57 pm * Is the patient Alert and Oriented? Yes * How many steps to enter\\exit or inside your home? RAMP * PCP [facility] * Pharmacy [facility] * Preadmission Environment Home with Family * ADLs Independent * Equipment Power Chair or Electric Scooter Wheelchair * Other Equipment PT NOT USING POWER CHAIR, STATES IT IS TOO FAST. VA - MEDICAL EQUIPMENT PROVIDER * List name and contact numbers for known caregivers / representatives who currently or will assist patient after discharge: JULIO C PLEITEZ, FRIEND, ROCIO PIPER, FRIEND, * Verbal permission to speak to the caregivers and representatives has been obtained from the patient. N/A * Community resources currently utilized Other * Please name any agencies selected above. OUTPATIENT DIALYSIS, [facility], MWF, 1100, [facility] * Additional services required to return to the preadmission environment? Yes * Can the patient safely return to the preadmission environment? Yes * Has this patient been hospitalized within the prior 30 days at any hospital? Yes External Providers External Provider: [facility] Next Contact Date: 08/23/2019 Service Request Date: Service Type: Resolution: Reviewer: Comments: Coverage Notice Reviewer: [id number] Farooq Malik Notice Issued Date-Time: 08/22/2019 14:00 Notice Type: Patient Choice Letter Notice Delivered To: Patient Relationship to Patient: French Edge Operator Name: Delivery Method: HAND - Hand Delivered Lakisha Days: Prior Verbal Notification: Recipient Understood Notice: Yes Recipient Signature: Yes Med Rec Note Co-signed by Attending: Coverage Notice Comment: [facility] INPT REHAB [facility] Reviewer: [id number] Farooq Malik Notice Issued Date-Time: 08/23/2019 13:20 Notice Type: Patient Choice Letter Notice Delivered To: Patient Relationship to Patient: French Edge Operator Name: Delivery Method: HAND - Hand Delivered Lakisha Days: Prior Verbal Notification: Recipient Understood Notice: Yes Recipient Signature: Yes Med Rec Note Co-signed by Attending: Coverage Notice Comment: [facility] ACCEPTANCE INPT / SNF REHAB REFUSAL Last DP export: 08/23/19 1:19 p Patient Name: MARC CHADWICK Page 85813 at 1519 All edits/amendments must be made on the electronic document DICTATION DATE: 08/23/191517 GENERAL MAGISTRATE: JANN 08/23/19 1518 RPT#: [id number] DC DATE:08/23/19 STATUS: DIS IN [facility] [address] [place] [address] END OF REPORT
--- NOTE | 2019-08-24 16:58 | MORECARE ---
CASE MANAGEMENT DISCHARGE SUMMARY PATIENT: MARC CHADWICK UNIT: [id number] ADM DATE: 08/17/19 AGE: 74 : [birth year] SEX: M ROOM/BED: D.2112 AUTHOR: ALCIDES,DOC PHYSICIAN: REFERRING PHYSICIAN: EMA GOMEZ MD DATE OF SERVICE: 08/24/19 Discharge Plan Patient Name: MARC CHADWICK Facility: [facility]:[place] : 1945 Planned Disposition: Home with Home Health Anticipated Discharge Date: 08/23/19 Discharge Date: 08/23/2019 Expected LOS: 6 Initial Reviewer: [id number] Initial Review Date: 08/17/2019 Generated: 08/24/19 5:57 pm Comments DCP- Discharge Planning Updated by [id number]: Eden Broderick on 08/24/19 3:[address] Patient Name: MARC CHADWICK Encounter No: [id number] : 1945 Primary Insurance: [employer] Anticipated DC Date: 08-23-2019 Planned Disposition: Home with Home Health External Planned Provider: [facility] DCP follow-up note: CM RECEIVED CALL FROM JESUS CURRAN OF [facility], , REQUESTING RECORDS FOR PT. CM EXPRESSED CONCERN OF PT'S SELF CARE AND DECISIONS REGARDING HIS CARE DUE TO DEMENTIA. APS WORKER BINA ASSURED CM THAT PT HAS SOMEONE LIVING WITH PT TO ASSIST IN HIS CARE. CM RECEIVED RELEASE OF INFORMATION VIA FAX AND FAXED REQUESTED RECORDS TO APS AT [phone]. EDEN BRODERICK, CAMILLE THOMAS DCP- Discharge Planning Updated by [email or web address]: Eden Broderick on 08/23/19 1:[address] Patient Name: MARC CHADWICK Encounter No: [id number] : 1945 Primary Insurance: [facility] [place] ADMINISTRATION Anticipated DC Date: 08-22-2019 Planned Disposition: Inpatient Rehab External Planned Provider: [facility] INPATIENT REHAB DCP follow-up note: CM CALLED [place] OFFICE OF COMMUNITY CARE TO FOLLOW UP ON REQUEST FOR INPATIENT REHAB AT [facility], , WAS ADVISED THAT CM NEEDS TO SPEAK TO HUMPHREY WHO WAS NOT IN THE OFFICE AT THE MOMENT AND CM WAS ASKED TO CALL BACK SHORTLY. CM WAS PROVIDED DIRECT NUMBER FOR [facility] OF OFFICE OF COMMUNITY CARE, . CM CALLED AND UPDATED THE VA EXPEDITOR, , TO UPDATE PT'S STATUS ON TRANSFER REQUEST. CM CONTINUES TO AWAIT AUTHORIZATION FROM [place] FOR INPATIENT REHAB AT [facility]. Eden Broderick, CASE MANAGEMENT Appended by Eden Broderick on 08/23/2019 14:13 CDT: CM RECEIVED CALL BACK FROM KIANA LEMUS OF [place] COMMUNITY CARE OFFICE, ; KIANA ROSARIO ADVISED THE VA DOES NOT WANT TO TRANSFER PT TO HOSPITAL HE IS STABLE, THEY DO NOT WANT TO PAY FOR INPATIENT REHAB AT [facility] AND ADVISED PT CAN GO TO COMMUNITY NURSING FACILITY WITH VA CONTRACT OR USE HIS MEDICARE FOR INPATIENT REHAB AT FACILITY OF HIS CHOICE. CM SPOKE TO PT IN ROOM, PROVIDED PT WITH THE ABOVE OPTIONS. PT DOES NOT WANT REHAB AT ALL NOW, HE FEELS IF HE MAY SOON AND DOES NOT WANT TO IN A HOSPITAL OR SENIOR CARE. PT STATES HE WANTS TO DISCHARGE HOME TODAY AND WANTS HIS HOME HEALTH WITH [facility] RESUMED. PT REPORTS Otilia IS FRIEND JESUS IS AT HOME AND CAN ASSIST WITH HIS CARE IF NEEDED. PT REPORTS HE WILL TAKE A T AXI HOME AND HAS THE MONEY TO PAY FOR TRANSPORTATION WITH HIM. CM DISCUSSED POSSIBLITY OF HOSPICE, PT REPORTS CM CAN TELL HOME HEALTH AND HE WOULD BE WILLING TO MEET WITH HOSPICE TO DISCUSS WHAT THEY CAN DO FOR HIM, BUT WANTS HOME HEALTH NOW. CHOICE SIGNED FOR HOME HEALTH AND DECLINING REHAB, INPATIENT AND PRISON. CM NOTIFIED BEDSIDE NURSE. CM NOTIED IPN BECCA RAHMAN WHO PROVIDED DISCHARGE ORDER. CM NOTIFIED QUALITY ASSURANCE LAB TECHNICIAN NURSE. CM CALLED AND LEFT DETAILED MESSAGE FROM ANAI OF [place] COMM[facility]ITY [facility]ARE CASE MANAGEMENT. CM CALLED [facility], , SPOKE TO CLAUDIA, PROVIDED INFORMATION FOR RESUMPTION OF CARE AND ALSO COMMUNICATED PT'S OPENESS TO DISCUSS HOSPICE WITH SOMEONE. CM FAXED DISCHARGE INFORMATION TO [facility] AT [phone]. EDEN BRODERICK, CASE MANAGEMENT DCP- Discharge Planning Updated by [id number]: Eden Broderick on 08/22/19 1:[address] Patient Name: MARC CHADWICK Encounter No: [id number] : 1945 Primary Insurance: [employer] Anticipated DC Date: 08-22-2019 Planned Disposition: Inpatient Rehab External Planned Provider: [facility] INPATIENT REHAB DCP follow-up note: CM RECEIVED CALL FROM NI[facility] WIL[facility], THEY DECLINED PT THEY ARE NOT ACCEPTING ANY DIALYSIS PATIENTS AT THIS TIME. CM DISCUSSED OPTION OF [facility] FOR SKILLED REHAB. PT STATES HE WOULD LIKE INPATIENT REHAB AT [facility] IF THEY WOULD TAKE HIM, HE DOES NOT WANT TO GO TO [place], BUT WOULD IF HE HAS TOO TO GET REHAB FROM THE [place]. CHOICE SIGNED FOR [facility] INPATIENT [facility]HAB AND [facility] SNF. CM SPOKE TO KUSHAL OF INPATIENT REHAB, THEY CAN TAKE PT INTO REHAB IF PT GETS A LETTER FROM [place] ATTESTING THEY WILL CONTRACT PAYMENT OR IF PT WANTS TO SIGN WAIVER OF [place] AND USE HIS MEDICARE WITH [employer]. PT DOES NOT WANT TO PAY A COPAY AND DOES NOT HAVE HIS MEDICARE CARD. CM SPOKE TO DR. LEMUS WHO INFORMED CM THAT PT IS READY TO DISCHARGE TO REHAB. CM CALLED KIANA LEMUS OF [facility], ; KIANA ROSARIO WILL CALL AND TALK TO YOVANI SCALES OF THE [place] INPATIENT REHAB AND DETERMINE WHAT THEY CAN WORK OUT. CM WAITING DETERMINATION FROM [facility] IF THEY WILL CONTRACT FOR INPATIENT REHAB AT [facility]. Eden Broderick, CASE MANAGEMENT DCP- Discharge Planning Updated by [id number]: Eden Broderick on 08/19/19 2:[address] Patient Name: MARC CHADWICK Encounter No: [id number] : 1945 Primary Insurance: [employer] Anticipated DC Date: 08-20-2019 Planned Disposition: Long Term Facility External Planned Provider: [facility], SKILLED REHAB [facility] CONTRACT BED DCP follow-up note: CM RECEIVED INPATIENT REHAB PRESCREENING ORDER. CM SPOKE TO PT IN ROOM, NOTIFIED THAT [place] WILL NOT ACCEPT DIALYSIS PATIENT; CM ADVISED THAT THE [place] DISCUSSED PRISON REHAB AT [place] CONTRACTED FACILITY SUCH THE [facility] IN [place] OR [facility] IN [place]. PT DOES NOT WANT TO GO THE [facility] HE GOT "HORRIBLE TREATMENT" THERE. PT WILL CONSENT TO REFERRAL TO [facility] FOR REHAB SERVICES, CHOICE SIGNED. CHART REVIEWED, ORDERS FOR PHYSICAL AND OCCUPATIONAL THERAPY EVALUATIONS OBTAINED. CM RECEIVED CALL FROM ANAI LEMUS OF [place] CASE MANAGEMENT SERVICES, , AND WAS ADVISED OF PT'S DISCHARGE PLAN. CM NOTIFIED SHANIA LEE. CM WAITING PHYSICAL AND OCCUPATIONAL THERAPY EVALUATION RESULTS AND WILL SEND REFERRAL TO [facility] ONCE ALL INFORMATION NEEDED FOR REFERRAL IS DOCUMENTED. Eden Broderick, CASE MANAGEMENT Appended by Eden Broderick on 08/19/2019 14:45 CDT: CM REVIEWED CHART, FAXED REHAB REFERRAL TO [facility] IN [place] VIA [facility] AT [phone]. CM NOTIFED [facility] OF REFERRAL AT [phone]. IF ACCEPTED FOR REHAB AT [facility], CM WILL HAVE TO COORDINATE TEMPORARY DIALYSIS UNIT CHANGE. EDEN BRODERICK CASE MANAGEMENT Appended by Eden Broderick on 08/19/2019 15:56 CDT: CM RECEIVED CALL FROM JAMES OF [facility]. PT IS ACTIVE AND ON HOSPITAL HOLD. IT PT GOES HOME, [facility] WILL RESUME HOME HEALTH SERVICES. CM WAITING ADMISSION DETERMINATION FOR PRISON REHAB AT [facility]. IF ACCEPTED FOR REHAB AT [facility], CM WILL HAVE TO COORDINATE TEMPORARY DIALYSIS UNIT CHANGE. CAMILLE AKBAR MANAGEMENT DCP- Discharge Planning Updated by [id number]: Eden Broderick on 08/18/19 4:[address] Patient Name: MARC CHADWICK Admission Status: Elective Accout number: [id number] Admission Date: 08-17-2019 : 1945 Admission Diagnosis: Attending: EMA GOMEZ Current LOS: 1 Anticipated DC Date: Planned Disposition: Long Term Facility Primary Insurance: [employer] ADMINISTRATION PLANNED EXTERNAL PROVIDER: TO BE DETERMINED Discharge Planning Comments: CM MET WITH PT IN ROOM TO DISCUSS DISCHARGE PLANNING AND NEEDS. PT REPORTS LIVING AT HOME INDEPENDENTLY AND HAS A FRIEND, JESUS DUNCAN, WHO LIVES WITH PT. JESUS ASSISTS WITH CLEANING, COOKING AND LAUNDRY. PT HAS POWER CHAIR THAT HE NO LONGER USES IT IS "TOO FAST"; PT HAS MANUAL WHEELCHAIR. PT HAS HOME CARE THAT JUST STARTED FROM THE [place] AND DOES NOT KNOW WHICH COMPANY THEY SENT OUT. PT HAS NOT BEEN TAKING HIS HOME MEDICATIONS THE VA IS STILL TRYING TO GET THEM TO HIM FOR THE PAST TWO WEEKS. PT HAS BEEN TO HIS PRIMARY CARE VA DOCTOR AT [facility] TWICE IN THE PAST TWO WEEKS. CM DISCUSSED AVAILABILITY OF HOME HEALTH, REHAB SERVICES AND MEDICAL EQUIPMENT. PT THINKS HE MIGHT NEED REHAB AND ASKED IF HE CAN HAVE REHAB AT THE [place]. PT DOES WANT TO BE PLACED ON VA TRANSFER LIST. PT STATES IF HE GOES HOME, HE WILL GO IN A TAXICAB AND HAS FUNDS TO PAY FOR TRANSPORTATION. CM CALLED [place] EXPEDITOR, , SPOKE TO ROSEY AND PLACED PT ON VA TRANSFER LIST, NO BEDS AVAILABLE NOW. CM CALLED [facility] INPAT[facility], , SPOKE TO YOVANI SCALES WHO ADVISED THEY DO NOT ACCEPT DIALYSIS PATIENTS IN THEIR INPATIENT PROGRAM, PT MAY QUALIFY FOR SKILLED COMMUNITY CARE PROGRAM BUT WOULD HAVE TO TRANSFER TO [place] MEDICAL FACILITY FOR 14 DAY QUARANTINE PRIOR TO ENTERING. SHE ALSO SUGGESTED COMMUNITY PRISON FACILITY. CM CALLED MAIRA MONTEMAYOR, [facility], , DISCUSSED PT AND NEEDS; IF PT WILL GO SO PRISON AND IF THE [facility] WILL NOT ACCEPT, THE CLOSEST TWO ARE [facility] IN [place] AND [facility] IN [place]. PT WILL REQUIRE PHYSICAL AND OCCUPATIONAL THERAPY EVALUATONS TO DETERMINE NEEDS FOR REHAB. CM TO FOLLOW AND ASSIST WITH REHAB PLACEMENT IF NEEDED. Funding Analyst: Eden Broderick DCPIA - Discharge Planning Initial Assessment Updated by [id number]: Eden Broderick on 08/18/19 4:57 pm * Is the patient Alert and Oriented? Yes * How many steps to enter\\exit or inside your home? RAMP * PCP [place] [facility] * Pharmacy [facility] * Preadmission Environment Home with Family * ADLs Independent * Equipment Power Chair or Electric Scooter Wheelchair * Other Equipment PT NOT USING POWER CHAIR, STATES IT IS TOO FAST. VA - MEDICAL EQUIPMENT PROVIDER * List name and contact numbers for known caregivers / representatives who currently or will assist patient after discharge: JULIO C PLEITEZ, FRIEND, ROCIO PIPER, FRIEND, * Verbal permission to speak to the caregivers and representatives has been obtained from the patient. N/A * Community resources currently utilized Other * Please name any agencies selected above. OUTPATIENT DIALYSIS, [facility], MWF, 1100, [facility] * Additional services required to return to the preadmission environment? Yes * Can the patient safely return to the preadmission environment? Yes * Has this patient been hospitalized within the prior 30 days at any hospital? Yes Coverage Notice Reviewer: [id number] - Eden Broderick Notice Issued Date-Time: 08/22/2019 14:00 Notice Type: Patient Choice Letter Notice Delivered To: Patient Relationship to Patient: Cementer Machine Applicator Name: Delivery Method: HAND - Hand Delivered Lakisha Days: Prior Verbal Notification: Recipient Understood Notice: Yes Recipient Signature: Yes Med Rec Note Co-signed by Attending: Coverage Notice Comment: [facility] IN[facility] REHAB [facility] Reviewer: [id number] Farooq Broderick Notice Issued Date-Time: 08/23/2019 13:20 Notice Type: Patient Choice Letter Notice Delivered To: Patient Relationship to Patient: Cementer Machine Applicator Name: Delivery Method: HAND - Hand Delivered Lakisha Days: Prior Verbal Notification: Recipient Understood Notice: Yes Recipient Signature: Yes Med Rec Note Co-signed by Attending: Coverage Notice Comment: [facility] ACCEPTANCE INPT / SNF REHAB REFUSAL Last DP export: 08/23/19 2:19 p Patient Name: MARC CHADWICK Page [id number] at 1658 All edits/amendments must be made on the electronic document DICTATION DATE: 08/24/191656 MANAGER BEHAVIOR: JANN 08/24/191656 RPT#: [id number] DC DATE:08/23/19 STATUS: DIS IN [facility] [address] [place] [address] END OF REPORT
== END 2019-08-23 14:36 | disposition home health service (06) | DRG 270 ==
LOC: D.M2 15:42
PROVIDERS: Internal Medicine Nephrology; Radiology Vascular & Interventional Radiology; ADMIT Internal Medicine Nephrology; ATTEND Internal Medicine Nephrology
PROC: 04CK3ZZ Extirpation of Matter from Right Femoral Artery, Percutaneous Approach (ICD-10-PCS; 2019-08-18)
PROC: 5A1D70Z Performance of Urinary Filtration, Intermittent, Less than 6 Hours Per Day (ICD-10-PCS; 2019-08-18)
PROC: 047K3Z1 Dilation of Right Femoral Artery using Drug-Coated Balloon, Percutaneous Approach (ICD-10-PCS; principal; 2019-08-18 13:00)
DX: E11.51 Type 2 diabetes mellitus with diabetic peripheral angiopathy without gangrene (principal); N18.6 End stage renal disease; I12.0 Hypertensive chronic kidney disease with stage 5 chronic kidney disease or end stage renal disease; E11.22 Type 2 diabetes mellitus with diabetic chronic kidney disease; K21.9 Gastro-esophageal reflux disease without esophagitis; I25.10 Atherosclerotic heart disease of native coronary artery without angina pectoris; E78.5 Hyperlipidemia, unspecified; D63.1 Anemia in chronic kidney disease; I70.211 Atherosclerosis of native arteries of extremities with intermittent claudication, right leg; Z95.0 Presence of cardiac pacemaker; Z86.73 Personal history of transient ischemic attack (TIA), and cerebral infarction without residual deficits; Z89.612 Acquired absence of left leg above knee

== ENCOUNTER 2019-10-05 14:31 | Inpatient (IN) | payer MEDICARE ==
[~2019-10-05] VITALS: Ht 165.1 cm; Wt 61.5 kg
--- NOTE | ~2019-10-05 | HEMODYNAMI ---
PATIENT:MARC CHADWICK MEDICAL RECORD: [id number] : 49 LOCATION:[facility] D.[id number] ADMISSION DATE: 10/06/19 Generatedon:10/07/201910:45 Patient name: MARC CHADWICK Patient #: [id number] SSN: [id number] : 1945 Date of study: 10/07/2019 Page: Of Hemodynamic Procedure Report Patient Data Patient Demographics Procedure consent was obtained First Name: MARC Gender: Male Last Name: NETTA : 1945 Middle Initial: S Age: 74 year(s) Patient #: [id number] Race: SSN: [id number] Additional ID: [id number] Contact details [address]: [address] [place] [address] State: [place] City: [place] Zip code: [address] Past Medical History History of disease Date Diagnosis Comments CAD Peripheral vascular disease->Amputation Renal failure->Dialysis Allergies Allergen Reaction Date Comments Reported Other 10/01/2014 METHADONE allergy Other 04/28/2016 Methadone allergy Other 09/22/2016 Methadone allergy Other 02/23/2018 methadone allergy Other 01/14/2019 methadone allergy Other 02/03/2019 methadone allergy Other 08/04/2019 methadone,amiltryptiline allergy Other 08/18/2019 amitriptyline, methadone allergy Other 10/07/2019 METHADONE, AMITRIPTYLINE allergy Admission Admission Data Admission Date: 10/06/2019 Admission Time: 19:36 Arrival Date: 10/07/2019 Arrival Time: 0:00 Admit Source: Other Insurance Payor: Medicare Room #: D.2124 [facility] #: [id number] Height (in.): 65 BSA: 1.8 (m2) Height (cm.): 165.1 BMI: 26.63 (kg/m2) Weight (lbs.): 160 Weight (kg.): 72.57 Lab Results Lab Result Date: 10/07/2019 Lab Result Time: 0:00 Biochemistry Name Units Result Min Max BUN mg/dl 31 --(----)-* 7 18 Creatinine mg/dl 6.3 --(----)-* 0.6 1.3 eGFR ml/min 9 *-(----)-- 90 120 NONAFRICAN CBC Name Units Result Min Max Hematocrit % 39.8 -*(----)-- 42 54 Hemoglobin g/dl 12 *-(----)-- 13.5 17.5 Procedure Procedure Types Cath Procedure Diagnostic Procedure LHC LHC w/Coronaries w/Grafts Sedation Charges Moderate Sedation up to 45 minutes PCI Procedure Hemochron ACT Test Peripheral Cath Diagnostic Procedure Peripheral vascular Intervention Stent Stent-Fem/Popw/plasty Procedure Description Procedure Date Procedure Date: 10/07/2019 Procedure Start Time: 9:12 Procedure End Time: 10:38 Procedure Staff Name Function Alejandro Mcdermott MD Performing Physician Shi Gamez RT Monitor [employer] RT Car Deliverer Mariella Parker RT Scrub Ashley Delgadillo RN Nurse Procedure Data Cath Procedure Fluoroscopy Diagnostic fluoroscopy Total fluoroscopy Time: time: 27.8 min 27.8 min Diagnostic fluoroscopy Total fluoroscopy dose: 632 dose: 632 mGy mGy Contrast Material Contrast Material Type Amount (ml) Isovue 300 156 Entry Location Entry Primary Successful Side Size Upsize Upsize Entry Closure Succes sful Closure Location (Fr) 1 (Fr) 2 (Fr) Remarks Device Remarks Femoral Left 5 Fr 6 Fr 6 Fr Exoseal artery Short Long Estimated blood loss: 10 ml Diagnostic catheters Device Type Used For End Catheter Placement MULTIPACK JL 4.0 5Fr Procedure catheter MULTIPACK 3DRC 5Fr Procedure catheter MULTIPACK Pigtail 5 Fr Ventriculography catheter DIAGNOSTIC IMT 5Fr Procedure Catheter ([id number]) Procedure Complications No complications Procedure Medications Medication Administration Route Dosage 0.9% NaCl I.V. 100 ml/hr Oxygen etCO2 Nasal cannula 2 l/min Lidocaine 2% added to field 20 Heparin Flush Bag added to field 2 bags (1000units/500ml NS) Versed I.V. 2 mg Fentanyl I.V. 50 mcg Fentanyl I.V. 50 mcg Heparin Bolus I.V. 5000 units Versed I.V. 2 mg Versed I.V. 2 mg Fentanyl I.V. 50 mcg Fentanyl I.V. 50 mcg Hemodynamics Rest BSA: 1.8 (m2) HGB: 12 (g/dl) O2 Consumption: Estimated: 202.3 (ml/min) O2 Consum ption indexed: Estimated:112.39 (ml/min/m) Heart Rate: 62 (bpm) Pressure Samples Time Site Value (mmHg) Purpose Heart Use Rate(bpm) 9:29 LV 151/24,30 Snapshot 62 9:29 AO 153/68(102) Pullback 65 9:29 LV 146/16,24 Pullback 65 Gradients Valve Time Site 1 Site 2 Mean SEP/DFP Peak To Heart Use (mmHg) (sec/min) Peak Rate (mmHg) (bpm) Aortic 9:29 LV AO 0 65 146/16,24 153/68(102) Calculations Valve P-P Mean Valve Index Valve Source Name Gradient Area Flow (cm2) Aortic 0 0 Snapshots Pre Cath Intra NCS Post Cath Vital Signs Time Heart Resp SPO2 etCO2 NIBP (mmHg) Rhythm Pain Sedation Rate (ipm) (%) (mmHg) Status Level (bpm) 8:50:05 61 12 96 38 138/60(117) Paced 0 (11) 10(A) , No pain 8:55:04 60 21 100 23.1 Measuring Paced 0 (11) 10(A) , No pain 8:55:09 60 22 100 22.3 139/62(121) Paced 0 (11) 10(A) , No pain 8:59:28 60 13 100 28.3 125/67(96) Paced 0 (11) 10(A) , No pain 9:03:47 60 12 100 30.6 139/59(105) Paced 0 (11) 10(A) , No pain 9:08:11 60 11 97 37.3 129/60(103) Paced 0 (11) 10(A) , No pain 9:12:33 60 10 100 36.5 118/57(97) Paced 0 (11) 10(A) , No pain 9:16:53 60 14 100 36.5 125/51(95) Paced 0 (11) 10(A) , No pain 9:21:11 60 14 100 38.8 125/59(96) Paced 0 (11) 10(A) , No pain 9:25:29 60 10 100 37.3 128/55(104) Paced 0 (11) 10(A) , No pain 9:29:47 63 10 100 29.1 136/61(105) Paced 0 (11) 9(A) , No pain 9:34:06 68 8 100 38 151/71(115) Paced 0 (11) 9(A) , No pain 9:38:32 68 16 100 33.6 163/73(98) Paced 0 (11) 9(A) , No pain 9:42:54 64 18 100 27.6 132/66(91) Paced 0 (11) 9(A) , No pain 9:47:53 69 19 99 32.8 Measuring Paced 0 (11) 9(A) , No pain 9:48:09 68 16 98 30.6 165/77(151) Paced 0 (11) 9(A) , No pain 9:52:34 76 24 96 30.6 179/91(143) Paced 0 (11) 9(A) , No pain 9:57:04 69 14 99 38.8 144/64(112) Paced 0 (11) 10(A) , No pain 10:02:03 76 15 100 35.8 Measuring Paced 0 (11) 10(A) , No pain 10:02:25 79 17 100 29.8 173/77(126) Paced 0 (11) 10(A) , No pain 10:06:56 80 20 100 35.8 163/82(126) Paced 0 (11) 10(A) , No pain 10:11:18 86 12 98 32.1 146/73(100) Paced 0 (11) 10(A) , No pain 10:15:36 81 10 87 28.3 125/65(98) Paced 0 (11) 10(A) , No pain 10:19:52 77 12 98 35.1 143/67(108) Paced 0 (11) 10(A) , No pain 10:24:08 79 11 99 20.9 121/62(93) Paced 0 (11) 10(A) , No pain 10:28:18 76 10 98 26.9 119/60(93) Paced 0 (11) 10(A) , No pain 10:32:34 77 11 99 31 111/60(90) Paced 0 (11) 10(A) , No pain 10:36:50 75 10 100 10.4 116/54(97) Paced 0 (11) 10(A) , No pain Medications Time Medication Route Dose Verified Delivered Reason Notes Effectiveness by by 8:49:02 0.9% NaCl I.V. 100 Alejandro Ashley used for ml/hr St Shaun Delgadillo procedure RN 8:49:07 Oxygen etCO2 2 Alejandro Ashley used for Nasal l/min Needles Elie procedure cannula MD BRYANT 8:49:12 Lidocaine 2% added 20ml Alejandro Allen for local to vial [facility] anesthetic field MD UP 8:49:16 Heparin Flush added 2 Alejandro Alejandro used for Bag to bags [facility] procedure (1000units/500ml field MD UP NS) 9:05:52 Versed I.V. 2 mg Alejandro Ashley for sedation St Shaun Delgadillo MD RN 9:05:57 Fentanyl I.V. 50 Alejandro Ashley for sedation mcg St Shaun Delgadillo MD RN 9:23:10 Fentanyl I.V. 50 Alejandro Ashley for sedation mcg St Shaun Delgadillo MD RN 9:38:27 Heparin Bolus I.V. 5000 Alejandro Ashley for units St Shaun stephenson MD RN 9:57:31 Versed I.V. 2 mg Alejandro Ashley for sedation St Shaun Delgadillo MD RN 10:13:23 Versed I.V. 2 mg Alejandro Ashley for sedation St Shaun Delgadillo MD RN 10:13:27 Fentanyl I.V. 50 Alejandro Ashley for sedation mcg St Shaun Delgadillo MD RN 10:23:42 Fentanyl I.V. 50 Alejandro Ashley for sedation mcg St Shaun Delgadillo MD author Log Time Note 8:20:38 Shi BA(R) sent for patient. Start room use. 8:21:28 Informed consent obtained and on chart 8:21:57 Procedure Status Urgent Heart Cath (IP). 8:21:58 Time tracking: Regular hours (M-F 7:00 - 5:00) 8:22:02 Plan of Care:Hemodynamics will remain stable., Cardiac rhythm will remain stable., Comfort level will be maintained., Respiratory function will remain adequate., Patient/ family verbilizes understanding of procedure., Procedure tolerated without complication., Recovers from procedure without complications.. 8:22:10 H&P Date Dictated: 10/06/2019 Within 30 days and on chart., H&P Addendum completed by physician on day of procedure. (MUST COMPLETE FOR ALL OUTPATIENTS). 8:22:31 Patient allergic to Other allergyMETHADONE, AMITRIPTYLINE 8:34:23 Lab Result : Hemoglobin 12 g/dl 8:34: Lab Result : Hematocrit 39.8 % 8:34:23 Lab Result : eGFR NONAFRICAN 9 ml/min 8:34:23 Lab Result : BUN 31 mg/dl 8:34: Lab Result : Creatinine 6.3 mg/dl 8:37:05 Patient received from Med II to CCL 1 Alert and oriented. Tansferred to table in Supine position. 8:37:06 Warm blankets applied, and hao hugger turned on for patient comfort. 8:37:07 Correct patient and procedure confirmed by team. 8:37:07 ECG and BP/O2 sat monitors applied to patient. 8:39:25 Patient Weight : 160 lbs 8:40:32 Patient Height : 65 inches 8:48:00 Arrival Date: 10/07/2019 12:00:00 AM 8:48:54 Vital chart was started 8:49:02 0.9% NaCl 100 ml/hr I.V. was administered by Ashley Delgadillo RN; used for procedure; Verbal order read back and verified. 8:49:07 Oxygen 2 l/min etCO2 Nasal cannula was administered by Ashley Delgadillo RN; used for procedure; Verbal order read back and verified. 8:49:12 Lidocaine 2% 20ml vial added to field was administered by Alejandro Mcdermott MD; for local anesthetic; Verbal order read back and verified. 8:49:16 Heparin Flush Bag (1000units/500ml NS) 2 bags added to field was administered by Alejandro Mcdermott MD; used for procedure; Verbal order read back and verified. 8:49:40 Insurance Payor : Medicare 8:49:42 Admit Source: Other 8:50:25 Baseline sample Acquired. 8:50:30 Full Disclosure recording started 8:50:56 Family unavailable. 8:50:59 Is the patient allergic to Iodine/contrast media? No. 8:51:01 Was the patient premedicated? Yes 8:51:03 Is patient on blood thinner?No 8:51:05 Patient diabetic? Yes. 8:51:07 If diabetic: On Metformin? No 8:51:12 Snore? Yes 8:51:13 Sleep apnea? Yes 8:51:18 Dentures? No ? 8:51:37 Patient pain scale 0/10 ?. 8:51:44 IV patent on arrival in left hand with 0.9% NaCl at [facility]. 8:51:56 Lab results completed and on chart. 8:52:07 Left groin area was prepped with chlora-prep and draped in sterile fashion 8:52:08 Alarms reviewed by RKala N. 8:52:09 Sharps counted by scrub and verified by R.N. 8:52:10 Physician arrived 8:52:11 --------ALL STOP TIME OUT------ 8:52:12 Final Timeout: patient, procedure, and site verified with staff and physician. All members of the team are in agreement. 8:52:21 Left groin site verified by team. 8:52:25 Fire Safety Assessment: A--An alcohol-based skin anteseptic being used preoperatively., C--Open oxygen or nitrous oxide is being used., D--An ESU, laser, or fiber-optic light is being used. 8:52:38 Physical assessment completed. ASA score P 2 - A patient with mild systemic disease as per Alejandro Mcdermott MD. 8:52:48 5) <15 or on dialysis Very severe, or end stage kidney failure. 8:52:57 Sedation plan: IV Moderate Sedation Medication:Versed, Fentanyl 8:53:01 Use device set Femoral Dx 8:53:02 ACIST Syringe (82580) opened to sterile field. 8:53:03 Bag Decanter (2002S) opened to sterile field. 8:53:04 Medline Cath Pack ([id number]) opened to sterile field. 8:53:05 ACIST Hand Control (43328) opened to sterile field. 8:53:06 ACIST Manifold (16588) opened to sterile field. 8:53:09 DIAGNOSTIC Multipack 5Fr catheter set (EC4622) opened to sterile field. 8:53:15 SHEATH 5FR Mountain (YFH243) opened to sterile field. 8:53:16 EMERALD Guide Wire (948-359) opened to sterile field. 9:05:52 Versed 2 mg I.V. was administered by Ashley Delgadillo RN; for sedation; Verbal order read back and verified. 9:05:53 Rhythm: sinus rhythm 9:05:57 Fentanyl 50 mcg I.V. was administered by Ashley Delgadillo RN; for sedation; Verbal order read back and verified. ::58 Pre-procedure instructions explained to patient. 9::58 Pre-op teaching completed and patient verbalized understanding. 9:06:00 Patient NPO since Midnight. 9:06:07 Deviated septum? No 9:06:07 Opens mouth fully? Yes 9:06:08 Sticks out tongue? Yes 9:06:10 Airway obstruction? No ? 9:06:16 Risk of Mortality: .4 9:06:19 Risk of blood transfusion: 1.1 9:06:22 Risk of DAQUAN: 7.8 9:11:52 Procedure started. 9:12:49 Local anesthetic to left femerol artery with Lidocaine 2% by Alejandro Mcdermott MD.INITIAL ACCESS ONLY 9:12:58 A 5 Fr sheath was inserted into the Left Femoral artery 9:15:07 j wire advanced. 9:20:22 SHEATH 6FR Mountain (NID270) opened to sterile field. 9:20:36 Sheath upsized to a 6 Fr Short. 9:22:28 A MULTIPACK JL 4.0 5Fr catheter was advanced over the wire and used for Procedure. 9:22:36 LCA angiography performed. 9:23:10 Fentanyl 50 mcg I.V. was administered by Ashley Delgadillo RN; for sedation; Verbal order read back and verified. 9:24:32 Catheter removed. 9:24:41 A MULTIPACK 3DRC 5Fr catheter was advanced over the wire and used for Procedure. 9:25:12 RCA angiography performed. 9:26:21 Catheter removed. 9:27:25 REED to LAD angiography performed. 9:30:09 A MULTIPACK Pigtail 5 Fr catheter was advanced over the wire and used for Ventriculography. 9:31:11 EF : 25 % 9:31:35 Abdominal angiogram w/ runoff was performed. 9:31:39 Left leg runoff performed. 9:31:40 Right leg runoff performed. 9:35:48 Catheter removed. 9:35:51 Proceeding to intervention. 9:38:27 Heparin Bolus 5000 units I.V. was administered by Ashley Delgadillo RN; for anticoagulation; Verbal order read back and verified. 9:38:50 SHEATH 6FR Destination (RSR01) opened to sterile field. 9:38:51 GLIDE WIRE Super Stiff Angled 260cm (HQ7415) opened to sterile field. 9:38:59 A DIAGNOSTIC IMT 5Fr Catheter ([id number]) was advanced over the wire and used for Procedure. 9:39:17 6 Fr ? guide catheter was inserted over the wire 9:39:25 5 Fr IMT guide catheter was inserted over the wire 9:39:29 GLIDE wire advanced. 9:40:19 TORQUE DEVICE PLASTIC .038 ( TD01) opened to sterile field. 9:47:14 Sheath upsized to a 6 Fr Long. 9:48:07 Wire advanced across lesion. 9:52:58 INFLATOR Merit BasixCompak (TS4100) opened to sterile field. 9:52:59 Tegaderm 4 x 4 (1626W) opened to sterile field. 9:57:31 Versed 2 mg I.V. was administered by Ashley Delgadillo RN; for sedation; Verbal order read back and verified. 9:57:53 GLIDEWIRE EXCHANGED FOR CHOICE EX SUPPORT 9:59:16 GLIDE CATHETER 5FR ANGLED 100cm (CG508) opened to sterile field. 9:59:46 GLIDE CATH ADVANCED OVER THE WIRE TO SFA 10:12:02 Inflate balloon Inflation number: 1 A POWERFLEX PRO 5.0 X 60 X 135 balloon ([id number]) was prepped and advanced across the Distal Superficial Femoral, Right 99, then inflated to 10 BECCA for 0:12 (min:sec) . 10:13:23 Versed 2 mg I.V. was administered by Ashley Delgadillo RN; for sedation; Verbal order read back and verified. 10:13:27 Fentanyl 50 mcg I.V. was administered by Ashley Delgadillo RN; for sedation; Verbal order read back and verified. 10:15:08 Balloon removed over the wire. 10:18:34 Inflate balloon Inflation number: 1 A POWERFLEX PRO 4.0 x 40 x 135cm balloon ([id number]) was prepped and advanced across the Distal Superficial Femoral, Right1 99, then inflated to 12 BECCA for 0:34 (min:sec) . 10:19:21 Inflation number: 2 The POWERFLEX PRO 4.0 x 40 x 135cm balloon ([id number]) was reinflated across the Distal Superficial Femoral, Right1 , to 12 BECCA for 0:20 (min:sec) . 10:20:12 Inflation number: 3 The POWERFLEX PRO 4.0 x 40 x 135cm balloon ([id number]) was reinflated across the Distal Superficial Femoral, Right1 , to 14 BECCA for 0:37 (min:sec) . 10:22:05 Balloon removed over the wire. 10:23:42 Fentanyl 50 mcg I.V. was administered by Ashley Delgadillo RN; for sedation; Verbal order read back and verified. 10:25:25 SMART Flex 5 X 120 X 120 stent ([id number]) was deployed across Distal Superficial Femoral, Right . 10:29:09 Stent catheter was removed intact over wire. 10:31:14 Procedure type changed to Cath procedure, Diagnostic procedure, LHC, LHC w/Coronaries w/Grafts, Sedation Charges, Moderate Sedation up to 45 minutes, PCI procedure, Hemochron ACT Test, Peripheral Cath Diagnostic Procedure, Peripheral vascular Intervention, Stent, Stent-Fem/Popw/plasty 10:31:29 Balloon re-inserted over wire. 10:31:57 Inflation number: 4 The POWERFLEX PRO 4.0 x 40 x 135cm balloon ([id number]) was reinflated across the Distal Superficial Femoral, Right1 , to 12 BECCA for 0:10 (min:sec) . 10:32:04 Inflation number: 5 The POWERFLEX PRO 4.0 x 40 x 135cm balloon ([id number]) was reinflated across the Distal Superficial Femoral, Right1 , to 12 BECCA for 0:00 (min:sec) . 10:32:49 Balloon removed over the wire. 10:33:04 Wire removed. 10:33:51 Guide catheter removed. 10:34:28 Sheath removed intact; hemostasis achieved with Exoseal to the Left Femoral artery. 10:34:42 Procedure ended.(Physican Out) 10:34:54 Fluoroscopy time 27.80 minutes. 10:35:00 Fluoroscopy dose: 632 mGy 10:35:00 Flurop Dose total: 632 10:35:08 Dose Area Product 22627 mGy/cm. 10:35:13 Contrast amount:Isovue 300 156ml. 10:35:17 Maximum allowable dose exceeded? Yes. 10:35:18 Sharps counted by scrub and verified by MelonieN. 10:35:20 Insertion/operative site no bleeding no hematoma. 10:35:27 Post-op/insertion site Left Femoral artery dressed using a 4 x 4 and Tegaderm. 10:35:28 Post Procedure Pulses reassessed and unchanged 10:35:34 Post-procedure physical assessment completed. ASA score P 3 - A patient with severe systemic disease as per Alejandro Mcdermott MD. 10:35:38 Post procedure rhythm: unchanged. 10:35:41 Estimated blood loss: 10 ml 10:35:44 Post procedure instruction explained to patient.Patient verbalizes understanding. 10:37:46 Procedure and supply charges have been captured, reviewed, submitted and are correct. 10:37:56 Procedure Complication : No complications 10:38:02 Vital chart was stopped 10:38:04 [facility] Findings: mild to moderate CAD (<70%) 10:38:09 AFRO Findings: PVD: AUTOMATIC WINDER OPERATOR performed (see procedure notes) 10:38:13 See physician's report for complete and final results. 10:38:16 Report given to [facility] II. 10:38:19 Patient transfered to [facility] II with Bed. 10:38:23 Procedure ended. 10:38:23 Full Disclosure recording stopped 10:38:28 End room use (Document Last) 10:38:47 FEMSTOP Gold ([id number]) opened to sterile field. 10:38:50 EXOSEAL 6Fr (EX600) opened to sterile field. 10:42:17 ACT drawn and resulted at >400 seconds. (normal therapeutic range 180-240 seconds). Intervention Summary Intervention Notes Time ActionType Lesion and Equipment Action# Pressure Duration Attributes Used 10:12:02 Inflate Distal POWERFLEX 1 10 00:12 balloon Superficial PRO 5.0 X Femoral, 60 X 135 Right balloon ([id number]) 10:18:34 Inflate Distal POWERFLEX 1 12 00:34 balloon Superficial PRO 4.0 x Femoral, 40 x 135cm Right1 balloon ([id number]) 10:19:21 Reinflate Distal POWERFLEX 2 12 00:20 balloon Superficial PRO 4.0 x Femoral, 40 x 135cm Right1 balloon ([id number]) 10:20:12 Reinflate Distal POWERFLEX 3 14 00:37 balloon Superficial PRO 4.0 x Femoral, 40 x 135cm Right1 balloon ([id number]) 10:25:25 Deploy self Distal SMART Flex 1 expanding Superficial 5 X 120 X stent Femoral, 120 stent Right ([id number]) 10:31:57 Reinflate Distal POWERFLEX 4 12 00:10 balloon Superficial PRO 4.0 x Femoral, 40 x 135cm Right1 balloon ([id number]) 10:32:04 Reinflate Distal POWERFLEX 5 12 00:00 balloon Superficial PRO 4.0 x Femoral, 40 x 135cm Right1 balloon ([id number]) Device Usage Item Name Manufacture Quantity Catalog Number Hospital Part Current Minim al Lot# / Charge Number Stock Stock Serial# Code ACIST Acist 1 12625 808220 390885 938300 20 Syringe Medical (66915) Systems Canvita Bag Microtek 1 895894 40134 832938 5 Decanter Medical Inc. () Medline Medline 1 [id number] 476097 54396 113438 5 Cath Pack ([id number]) ACIST Hand Acist 1 41206 547317 374479 361954 5 Control Medical (04122) Systems Inc ACIST Acist 1 89924 942833 051021 122012 5 Manifold Medical (22561) Systems Inc DIAGNOSTIC Cardinal 1 AH7030 047569 33911 100547 30 Multipack Health 5Fr catheter set (BX3263) SHEATH 5FR Terumo 1 [id number] 507011 756851 907681 5 Mountain (BEQ968) EMERALD Cardinal 1 502-455 902811 323653 666018 5 Guide Wire Health (502-455) SHEATH 6FR Terumo 1 SHQ743 226133 630772 739875 40 Mountain (CMF590) MULTIPACK Cardinal 1 032612 5 JL 4.0 5Fr Health catheter MULTIPACK Cardinal 1 405611 5 3DRC 5Fr Health catheter MULTIPACK Cardinal 1 247837 5 Pigtail 5 Health Fr catheter SHEATH 6FR Terumo 1 RSR01 666591 57842 200936 5 Destination (RSR01) GLIDE WIRE Terumo 1 TU1642 726965 803532 377368 5 Super Stiff Angled 260cm (KN7889) DIAGNOSTIC Butternut 1 [id number] 014748 437157 00447 5 IMT 5Fr Scientific Catheter ([id number]) TORQUE Butternut 1 TD01 223293 308189 470182 5 DEVICE Scientific PLASTIC .038 ( TD01) INFLATOR Merit 1 EI1854 086092 446693 636837 15 Merit Medical BasixCompak (JX1762) Tegaderm 4 3M 1 1626W 614503 523382 966527 5 x 4 (1626W) GLIDE Terumo 1 CG508 825571 12175 049220 4 CATHETER 5FR ANGLED 100cm (CG508) POWERFLEX Cardinal 1 [id number] 141036 204308 325065 5 PRO 5.0 X Health 60 X 135 balloon ([id number]) POWERFLEX Cardinal 1 [id number] 896586 875199 321847 5 PRO 4.0 x Health 40 x 135cm balloon ([id number]) SMART Flex Cardinal 1 [id number] 845247 287595 532782 0 758670 5 X 120 X Health 120 stent ([id number]) FEMSTOP St Shade 1 H21283 612842 282359 173193 5 Gold ([id number]) EXOSEAL 6Fr Cardinal 1 EX600 213574 346561 900869 10 (EX600) Health Signature Audit [place] Stage Time Signature Unsigned Intra-Procedure 10/07/2019 Shi Gamez 10:43:53 AM RT(R) Intra-Procedure 10/07/2019 Ashley Delgadillo RN 10:44:39 AM Intra-Procedure 10/07/2019 Alejandro Mcdermott MD 10:45:08 AM [facility] [address] [place] [address]
[~2019-10-05 14:31] MED LIST changes: +RENA-VITE TABL0.8 MG PO; +RENVELA0.8 GM PO
[2019-10-05 15:54] LABS: BASOPHILS 0.2 % (0-2); EOSINOPHILS 5.2 % (0-7); HEMATOCRIT 41.8 % (42.0-54.0); HEMOGLOBIN 12.9 g/dL (13.5-17.5); IMMATURE GRANULOCYTES 0.2 % (0-5); LYMPHOCYTES 11.5 % (15-50); MCH 30.4 pg (26.0-34.0); MCHC 30.9 g/dL (31.0-37.0); MCV 98.4 fL (80.0-100.0); MEAN PLATELET VOLUME 9.7 fL (7.4-10.4); MONOCYTES 8.1 % (2-11); NEUTROPHILS 74.8 % (40-80); PLATELET COUNT 135 10x3/uL (130-400); RBC 4.25 10x6/uL (4.20-6.10); RDW 15.4 % (11.5-14.5); WBC 4.5 10x3/uL (4.8-10.8)
[2019-10-05 16:00] VITALS: BP 159/66
[2019-10-05 16:08] LABS: INR 0.98 (0.85-1.17)
[2019-10-05 16:12] LABS: ANION GAP 13.5 mmol/L (8-16); CARBON DIOXIDE 28.9 mmol/L (21.0-32.0); CREATININE - SERUM 5.1 mg/dL (0.6-1.3); POTASSIUM - SERUM 4.4 mmol/L (3.5-5.1)
[2019-10-05 16:18] LABS: ALBUMIN 3.7 g/dL (3.4-5.0); BILIRUBIN - TOTAL 0.69 mg/dL (0.2-1.3); PROTEIN - SERUM 7.4 g/dL (6.4-8.2)
[2019-10-05 16:22] LABS: CKMB 2.1 U/L (0.0-3.6); CREATINE KINASE 55 UL (21-232); MAGNESIUM - SERUM 1.9 mg/dL (1.8-2.4)
[2019-10-05 16:26] LABS: TROPONIN-I 0.068 ng/mL (0.000-0.060)
[2019-10-05 17:00] VITALS: BP 174/98
--- NOTE | 2019-10-05 17:58 | NUR ---
FSBS 104, PATIENT STATES HE HAS NOT EATIN SINCE THIS AM, GAVE PATIENT SANDWICH TRAY PER DR. VERMA, PATIENT CONSUMED 100%.
[2019-10-05 18:00] VITALS: BP 149/91
--- NOTE | 2019-10-05 19:36 | NUR ---
RECIEVED TO ROOM 2126 FROM ER VIA [email or web address] WC. PT A&O. IV TO LEFT ARM SL, SITE CLEAN AND DRY. LEFT AVF (+,+). LEFT AKA, STUMP WITH OUT SORES OR OPEN AREAS. HISTORY AND MED REC OBTAINED. PT CURRENTLY DENIES PAIN OR NEEDS.
--- NOTE | 2019-10-05 22:18 | NUR ---
PT MOVED TO ROOM 2123 DUE TO HEATER NOT GETTING WARM ENOUGH IN ROOM 2126.
[2019-10-05 22:23] LABS: CKMB 1.9 U/L (0.0-3.6); CREATINE KINASE 55 UL (21-232)
[2019-10-05 22:24] LABS: TROPONIN-I 0.068 ng/mL (0.000-0.060)
[2019-10-05] MEDS ORDERED: TRAZODONE HCL150 MG PO (23:30)
[2019-10-06 02:30] VITALS: BMI 26.6
[2019-10-06 03:57] LABS: BASOPHILS 0.2 % (0-2); EOSINOPHILS 3.6 % (0-7); IMMATURE GRANULOCYTES 0.2 % (0-5); LYMPHOCYTES 19.4 % (15-50); MCH 30.1 pg (26.0-34.0); MCV 97.2 fL (80.0-100.0); MEAN PLATELET VOLUME 9.4 fL (7.4-10.4); MONOCYTES 10.9 % (2-11); NEUTROPHILS 65.7 % (40-80); PLATELET COUNT 116 10x3/uL (130-400); RBC 4.32 10x6/uL (4.20-6.10); RDW 15.3 % (11.5-14.5); WBC 4.9 10x3/uL (4.8-10.8)
[2019-10-06 04:00] VITALS: BP 136/49
[2019-10-06 04:28] LABS: ALBUMIN 3.4 g/dL (3.4-5.0); ALKALINE PHOSPHATASE 123 U/L (30-120); ALT (SGPT) 18 U/L (10-68); BILIRUBIN - TOTAL 0.41 mg/dL (0.2-1.3); CALCIUM 9.6 mg/dL (8.5-10.1); CARBON DIOXIDE 27.5 mmol/L (21.0-32.0); CHLORIDE - SERUM 99 mmol/L (98-107); CKMB 1.7 U/L (0.0-3.6); CREATINE KINASE 50 UL (21-232); GLUCOSE 121 mg/dL (74-106); PHOSPHOROUS 8.3 mg/dL (2.5-4.9); PROTEIN - SERUM 7.4 g/dL (6.4-8.2); SODIUM 137 mmol/L (136-145)
[2019-10-06 04:33] LABS: CALC OSMOLALITY 283 mosm/kg (275-300); CREATININE - SERUM 7.3 mg/dL (0.6-1.3); POTASSIUM - SERUM 5.7 mmol/L (3.5-5.1); TROPONIN-I 0.098 ng/mL (0.000-0.060); UREA NITROGEN 39 mg/dL (7-18); eGFR NON AFRICAN AMERICAN 8 mL/min (90-120)
--- NOTE | 2019-10-06 04:38 | NUR ---
ZOFRAN 4 MG GIVEN FOR C/O NAUSEA. PLACED BACK ON TELEMETRY.
[2019-10-06 09:23] VITALS: BP 179/58
[2019-10-06 10:12] LABS: CKMB 1.6 U/L (0.0-3.6); CREATINE KINASE 44 UL (21-232)
[2019-10-06 10:14] LABS: TROPONIN-I 0.084 ng/mL (0.000-0.060)
--- NOTE | 2019-10-06 10:15 | NUR ---
PATIENT GOING DOWN FOR DIALYSIS VIA BED
[2019-10-06 11:01] VITALS: BMI 26.6
[2019-10-06 11:34] LABS: ANION GAP 21.2 mmol/L (8-16); CALCIUM 9.4 mg/dL (8.5-10.1); CARBON DIOXIDE 24.4 mmol/L (21.0-32.0); CHOL - HDL RATIO 3.7 ratio (2.3-4.9); CREATININE - SERUM 7.5 mg/dL (0.6-1.3); LDL-HDL RATIO 2.1 ratio (1.5-3.5); POTASSIUM - SERUM 5.6 mmol/L (3.5-5.1)
[2019-10-06 12:00] VITALS: BP 143/55
--- NOTE | 2019-10-06 15:03 | NUR ---
edited from b lower ext arterial to rt due to lt leg amputaion
[2019-10-06 15:19] LABS: BASOPHILS 0.6 % (0-2); HEMATOCRIT 40.2 % (42.0-54.0); HEMOGLOBIN 12.4 g/dL (13.5-17.5); LYMPHOCYTES 24.3 % (15-50); MCH 30.4 pg (26.0-34.0); MCHC 30.8 g/dL (31.0-37.0); MCV 98.5 fL (80.0-100.0); MEAN PLATELET VOLUME 9.6 fL (7.4-10.4); MONOCYTES 10.6 % (2-11); NEUTROPHILS 58.5 % (40-80); PLATELET COUNT 107 10x3/uL (130-400); RBC 4.08 10x6/uL (4.20-6.10); RDW 15.4 % (11.5-14.5); WBC 3.5 10x3/uL (4.8-10.8)
[2019-10-06 15:20] VITALS: Ht 165.1 cm; Wt 61.5 kg
[2019-10-06 15:34] LABS: ALBUMIN 3.3 g/dL (3.4-5.0); BILIRUBIN - TOTAL 0.51 mg/dL (0.2-1.3); CALCIUM 9.1 mg/dL (8.5-10.1); CARBON DIOXIDE 24.4 mmol/L (21.0-32.0); CREATININE - SERUM 7.9 mg/dL (0.6-1.3); POTASSIUM - SERUM 5.4 mmol/L (3.5-5.1); PROTEIN - SERUM 7.1 g/dL (6.4-8.2)
--- NOTE | 2019-10-06 16:24 | NUR ---
TELEMTRY SB 57. CALL LIGHT IN REACH. WILL MONITOR NEEDS.
--- NOTE | 2019-10-06 19:41 | NUR ---
PATIENT IS IN SCOOTER CHAIR, PATIENT STATES HE HAS NO NEEDS AT THIS TIME. PATIENT HAS A LEFT AC PIV THAT IS PATENT. PATIENT STATES HE NEEDS AT WET PAN OPERATOR FOR HIS SCOOTER. NO DISTRESS NOTED AT THIS TIME. BED IS IN LOWEST LOCKED POSITION AND CALL LIGHT IS LAYING IN REACH ON HIS BED.
[2019-10-06 20:00] VITALS: BP 134/62
--- NOTE | 2019-10-06 20:15 | NUR ---
PATIENT GOING DOWN FOR DIALYSIS VIA BED
--- NOTE | 2019-10-06 22:53 | NUR ---
PATIENT IS BACK FROM DIALYSIS, VIA BED. PATIENT EYES CLOSED BREATHING EVEN AND UNLABORED. CALL LIGHT WITHIN REACH BED IN LOWEST LOCKED POSITION.
[2019-10-07] VITALS: BP 114/42
--- NOTE | 2019-10-07 02:37 | NUR ---
ASKED FOR PAIN MEDSD FOR PAIN IN HIS FOOT AND LEGS. TREATED PER MAR
[2019-10-07 04:00] VITALS: BP 131/56
[2019-10-07 05:11] LABS: BASOPHILS 0.3 % (0-2); EOSINOPHILS 5.9 % (0-7); HEMATOCRIT 39.8 % (42.0-54.0); IMMATURE GRANULOCYTES 0.3 % (0-5); LYMPHOCYTES 27.9 % (15-50); MCH 29.9 pg (26.0-34.0); MCHC 30.2 g/dL (31.0-37.0); MEAN PLATELET VOLUME 9.4 fL (7.4-10.4); MONOCYTES 14.2 % (2-11); NEUTROPHILS 51.4 % (40-80); PLATELET COUNT 117 10x3/uL (130-400); RBC 4.02 10x6/uL (4.20-6.10); RDW 15.3 % (11.5-14.5); WBC 3.4 10x3/uL (4.8-10.8)
[2019-10-07 05:52] LABS: ALBUMIN 3.2 g/dL (3.4-5.0); ANION GAP 15.9 mmol/L (8-16); BILIRUBIN - TOTAL 0.38 mg/dL (0.2-1.3); CALCIUM 9.2 mg/dL (8.5-10.1); CARBON DIOXIDE 24.9 mmol/L (21.0-32.0); CREATININE - SERUM 6.3 mg/dL (0.6-1.3); PHOSPHOROUS 7.1 mg/dL (2.5-4.9); POTASSIUM - SERUM 4.8 mmol/L (3.5-5.1); PROTEIN - SERUM 7.1 g/dL (6.4-8.2)
--- NOTE | 2019-10-07 06:37 | NUR ---
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
[2019-10-07 11:08] VITALS: BP 129/51
--- NOTE | 2019-10-07 11:17 | NUR ---
PT ARRIVED BACK FROM CUSTOMER SUCCESS REPRESENTATIVE AT THIS TIME. PT RESTING WITH EYES CLOSED RR EVEN AND UNLABORED. 2L O2-100%. BP-151/54 HR-65. PT LAYING FLAT AT THIS TIME WITH FEM STOP IN PLACE. BED LOW CALL LIGHT WITHIN REACH. WILL CONTINUE TO MONITOR.
[2019-10-07 12:00] VITALS: BP 125/71
[2019-10-07 16:30] VITALS: BP 144/58
--- NOTE | 2019-10-07 19:10 | NUR ---
BEDSIDE REPORT RECEIVED, PT CARE ASSUMED. INTRODUCED SELF AND WROTE NAME ON BOARD. PT LYING IN BED, EYES CLOSED, RR EVEN AND NONLABORED, NO S/S OF DISTRESS, AROUSES EASILY TO VOICE, ORIENTED X3, REORIENTED TO TIME. DENIES ANY NEEDS AT THIS TIME. BED IN LOWEST, SRX2, CALL LIGHT AND URINAL WITHIN REACH. WILL CTM.
[2019-10-07 20:00] VITALS: BP 144/54
[2019-10-08 00:01] VITALS: BP 156/60
[2019-10-08 04:00] VITALS: BP 120/46
[2019-10-08 05:59] LABS: HEMATOCRIT 37.6 % (42.0-54.0); HEMOGLOBIN 11.8 g/dL (13.5-17.5); LYMPHOCYTES 14.3 % (15-50); MCH 30.4 pg (26.0-34.0); MCHC 31.4 g/dL (31.0-37.0); MEAN PLATELET VOLUME 9.4 fL (7.4-10.4); NEUTROPHILS 76.4 % (40-80); PLATELET COUNT 112 10x3/uL (130-400); RBC 3.88 10x6/uL (4.20-6.10); RDW 14.8 % (11.5-14.5)
[2019-10-08 06:05] LABS: MCV 96.9 fL (80.0-100.0); WBC 5.1 10x3/uL (4.8-10.8)
[2019-10-08 06:24] LABS: ALBUMIN 3.2 g/dL (3.4-5.0); BILIRUBIN - TOTAL 0.44 mg/dL (0.2-1.3); CARBON DIOXIDE 22.3 mmol/L (21.0-32.0); MAGNESIUM - SERUM 2.2 mg/dL (1.8-2.4); PROTEIN - SERUM 6.5 g/dL (6.4-8.2)
[2019-10-08 06:25] LABS: CREATININE - SERUM 8.7 mg/dL (0.6-1.3)
[2019-10-08 06:30] LABS: ANION GAP 19.9 mmol/L (8-16); POTASSIUM - SERUM 6.2 mmol/L (3.5-5.1)
--- NOTE | 2019-10-08 07:00 | NUR ---
RECEIVED REPORT. ASSUMED CARE OF PATIENT. PATIENT TO RECEIVE DIALYIS THIS AM PRIOR TO DISCHARGE. PATIENT IS CONFUSED. PATIENT ORIENTATED TO NAME ONLY. PATIENT THINKS HE IS IN [place] AT THE [facility] AND TELL ME IT IS THE YEAR 2009. BED ALARM PATENT TO FULL SURFACE AREA PATIENT CONTINUES TO TRY AND GET OOB. CALL LIGHT WITHIN REACH. NO DISTRESS.
--- NOTE | 2019-10-08 07:53 | NUR ---
SPOKE WITH RENAL BUCKLE GLUERBECCA, AND WILL PLACE ORDERS FOR DIALYSIS WHEN SHE ARRIVES AT THE FACILITY. K+ 6.2 REPORTED. NO NEW ORDERS AT THIS TIME RECEIVED PATIENT WILL RECEIVE DIALYSIS THIS AM.
[2019-10-08 08:03] VITALS: BP 89/35
--- NOTE | 2019-10-08 11:00 | NUR ---
PATIENT LEFT UNIT VIA BED FOR DIALYSIS. NO DISTRESS UPON LEAVING UNIT.
--- NOTE | 2019-10-08 11:30 | NUR ---
PATIENT FSBS 167. INSULIN HELD DUE TO PATIENT IS IN DIAYLSIS AND UNALBE TO EAT WHILE IN DIALYSIS.
[2019-10-08] MEDS ORDERED: ISOSORBIDE MONO20 MG PO (13:03)
[2019-10-08] MEDS ORDERED: Xarelto PO (13:03)
--- NOTE | 2019-10-08 15:42 | NUR ---
STATES THAT PATIENT CAN NOT DISCHARGE TO HOME, HE WANTS TO KEEP HIM OVERNIGHT IN OBSERVATION DUR TO CONFUSION UNLESS PATIENT IS DISCHARGING BACK TO A NURSING FACILITY, THEN IT IS OKAY TO PROCEEDE WITH THE DISCHARGE. CONFLICTING INFORMATION REGARDING HOW THE PATIENT ARRIVED TO THE ED ON 10/04. DID PATIENT ARRIVE VIA EMS OR DID HE COME BY HIS PERSONAL ELECTRIC WHEELCHAIR THAT IS WITH PATIENT AT THIS TIME. PATIENT IS NOT ORIENTED TO PLACE OR TIME AND CANNOT PROVIDE NEEDED INFORMATION. PHONE NUMBERS LISTED ON PATIENTS FACESHEET, NO ANSWER OBTAINED FROM EITHER NUMBER LISTED. DISCHARGE IS NOT SAFE AT THIS TIME.
--- NOTE | 2019-10-08 15:45 | NUR ---
PATIENT RETURNED FROM DIALYSIS AT THIS TIME. TOLERATED PROCEDURE WELL. NO DISTRESS.
--- NOTE | 2019-10-08 16:07 | NUR ---
PATIENT CONFUSED, UNABLE TO PROVIDE DETAILS REGARDING HIS LIVING ARRANGEMENTS. 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 DR. MADSEN AT BEDSIDE AT THIS TIME AND CONFIRMED A HOLD ON THE DISCHARGE DUE TO PATIENT IS CONFUSED AND UNSAFE TO SEND HIM HOME.
--- NOTE | 2019-10-08 16:42 | NUR ---
FSBS 85. NO INSULIN PER SLIDING SCALE.
--- NOTE | 2019-10-08 19:15 | NUR ---
BEDSIDE REPORT RECEIVED, PT CARE ASSUMED. WROTE NAME ON BOARD. PT LYING IN BED, AAOX2, REORIENTED TO TIME AND SITUATION. DENIES ANY NEEDS AT THIS TIME. BED IN LOWEST, SRX2, CALL LIGHT WITHIN REACH. WILL CTM.
[2019-10-08 20:00] VITALS: BP 103/44
--- NOTE | 2019-10-08 21:50 | NUR ---
PT LYING IN BED, AAOX1, REORIENTED TO PLACE, TIME, AND SITUATION. FSBS 138, NO INSULIN NEEDED PER SLIDING SCALE. NIGHT TIME MEDS ADMINISTERED, PER ORDER. PT ASKING "WHERE DO YOU KEEP THE DIAMONDS?" ASKED PT WHAT HE MEANT, PT SITS UP ON SIDE OF BED, STATES "I NEED TO GO GET SOME JEWLERY." TOLD PT IT WAS 10 PM, PT DEMANDS TO "GET A SHAVE, SO I CAN GO TO [facility] [employer] [facility] AND GET JEWELRY FOR MY SISTER. I CAN MAKE IT UP THERE IN AN HOUR AND A HALF." REORIENTED. BED IN LOWEST, SRX3, CALL LIGHT WITHIN REACH, BED ALARM ON AND FUNCTIONING. WILL CTM.
--- NOTE | 2019-10-09 00:31 | NUR ---
PT YELLING OUT FOR NURSE, PT SITTING UP ON SIDE OF BED, REQUESTING "LIGHTS BE TURNED OFF, I'M READY TO GO TO BED." ORIENTED X2, REORIENTED TO TIME AND SITUATION. LIGHTS TURNED OFF, BED IN LOWEST, SRX3, CALL LIGHT WITHIN REACH, BED ALARM ON AND FUNCTIONING. WILL CTM.
--- NOTE | 2019-10-09 02:47 | NUR ---
PT TRANSFERRED SELF INTO HIS MOTORIZED SCOOTER AND TOOK OFF INTO THE HALLWAY. CONFUSED TO PLACE/DATE/TIME/SITUATION. LOOKING FOR A FRIEND TO GIVE SOME MONEY TO. PT HAS HIS WALLET WITH $237 IN BOONE IN IT. HE WILL NOT ALLOW STAFF TO LOCK IT IN THE SAFE. HE IS CONTINUALLY TRYING TO GET STAFF TO TAKE THE MONEY AND "HOLD IT" FOR JESUS. PT FINALLY PERSUADED TO RETURN TO HIS ROOM AND STILL HAS HIS WALLET WITH THE BOONE IN IT. PT IS UNDER THE IMPRESSION THAT HIS FRIEND WILL BE HERE TOMORROW SINCE THE HOSPITAL IS CLOSED FOR THE NIGHT.
[2019-10-09 04:00] VITALS: BP 110/44
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
--- NOTE | 2019-10-09 06:55 | NUR ---
RECEIVING REPORT ON PATIENT. PATIENT COMBATIVE AND DELUSIONAL. PATIENT SWINGING AT STAFF. PATIENT SITTING TO END OF BED BETWEEN BEDRAILS. PATIENT REFUSING TO ALLOW NURSING STAFF TO ASSIST PATIENT BACK UP IN THE BED. PATIENT ACCUSING STAFF OF BUSTING INTO HIS HOME UNINVITED AND PLANTING DRUGS ON HIM AND "DOPPING" HIM UP. UNABLE TO REORIENT PATIENT. RENAL PLUGGER WORKER, CRISTINA, CALLED AND RECEIVED ORDERS TO CONSULT PSYCH AND SHE WILL BE HERE WITHIN THE HOUR. PATIENT WAS TO DISCHARGE YESTERDAY BUT DUE TO HIS CONFUSION, DR. MADSEN DECIDED TO KEEP PATIENT OVERNIGHT. CALLED OFFICE RN AND INFORMED OF SITUATION AND THAT PLUGGER WORKER REQUESTED A SITTER AND OFFICE RN INFORMED NO SITTER UNLESS PATIENT IS SUICIDAL. WAITING FOR PLUGGER WORKER TO ARRIVE.
--- NOTE | 2019-10-09 07:58 | NUR ---
PATIENT CONTINUES TO SIT AT THE END OF THE BED. PATIENT REFUSING VITAL SIGNS AND ALL OTHER CARES OFFERED AT THIS TIME. PATIENT REFUSES TELEMTRY. NO ACUTE DISTRESS. REMAINS CONFUSED.
--- NOTE | 2019-10-09 09:13 | NUR ---
PATIENT NOW OOB IN ELECTRIC WHEELCHAIR. DOORS CLOSED ON UNIT PATIENT IS ELOPEMENT RISK. GROCERY SUPERVISOR AND RENAL SHANIA EVANS TRYING TO GET PATIENT TRANSFERRED TO SKILLED NURSING AT THIS TIME.
--- NOTE | 2019-10-09 09:20 | NUR ---
PATIENT ABLE TO OPEN DOORS LEADING NUVIA UNIT AND LEFT UNIT. SECURITY CALLED WE WERE UNABLE TO STOP PATIENT.
--- NOTE | 2019-10-09 09:26 | NUR ---
PATIENT HAS NOW RETURNED TO THE UNIT.
--- NOTE | 2019-10-09 09:35 | NUR ---
TIMBER DEADENER AND CASE MANAGEMENT ON UNIT WITH PATIENT IN PATIENT ROOM AT THIS TIME.
--- NOTE | 2019-10-09 11:14 | NUR ---
FSBS 124. NO INSULIN PER SLIDING SCALE. PATIENT IS RESTING IN BED WITH EYES CLOSED AT THIS TIME. PATIENT WAS COOPERATIVE TO LET THIS WORKFLOW DEVELOPER CHECK HIS BLOOD GLUCOSE. CALL LIGHT WITHIN REACH. NO DISTRESS. RESP EVEN AND UNLABORED.
--- NOTE | 2019-10-09 14:40 | NUR ---
RESTING IN BED WITH EYES CLOSED. NO DISTRESS.
--- NOTE | 2019-10-09 15:41 | NUR ---
RESTING IN BED WITH EYES CLOSED. NO DISTRESS.
--- NOTE | 2019-10-09 16:19 | NUR ---
FSBS 101. NO INSULIN PER SLIDING SCALE. RESTING PEACEFULLY.
--- NOTE | 2019-10-09 17:53 | NUR ---
CONTINUES RESTING WITH EYES CLOSED. NO DISTRESS. CALL LIGHT WITHIN REACH.
[2019-10-09 20:00] VITALS: BP 136/51
--- NOTE | 2019-10-09 20:00 | NUR ---
REPORT RECIEVED AND INITIAL ROUNDS COMPLETED. RESPS EVEN/NONLABORED. SALINE LOCK TO LFA. NO TELEMETRY IN PLACE DUE TO PATIENT REFUSING. CPOC.
[2019-10-10 00:01] VITALS: BP 99/52
--- NOTE | 2019-10-10 02:57 | NUR ---
PT RESTING WITH O2 @ 2L/NC IN PLACE. RESPS EVEN/NONLABORED. CPOC.
[2019-10-10 04:00] VITALS: BP 126/48
--- NOTE | 2019-10-10 05:15 | NUR ---
PT ROUSED UP WITH NO PROBLEMS AND ALLOWED POULTRY FARM SUPERVISOR TO DRAW HIS AM LABS. AM MED GIVEN.
[2019-10-10 06:19] LABS: ALBUMIN 3.2 g/dL (3.4-5.0); BILIRUBIN - TOTAL 0.57 mg/dL (0.2-1.3); CREATININE - SERUM 8.6 mg/dL (0.6-1.3); MAGNESIUM - SERUM 2.3 mg/dL (1.8-2.4); PHOSPHOROUS 7.9 mg/dL (2.5-4.9)
[2019-10-10 06:22] LABS: ANION GAP 14.2 mmol/L (8-16); CARBON DIOXIDE 28.2 mmol/L (21.0-32.0); POTASSIUM - SERUM 4.4 mmol/L (3.5-5.1)
[2019-10-10 06:49] LABS: HEMATOCRIT 37.3 % (42.0-54.0); HEMOGLOBIN 11.7 g/dL (13.5-17.5); MCH 30.2 pg (26.0-34.0); MCHC 31.4 g/dL (31.0-37.0); MCV 96.1 fL (80.0-100.0); NEUTROPHILS 61.7 % (40-80); PLATELET COUNT 123 10x3/uL (130-400); RBC 3.88 10x6/uL (4.20-6.10); RDW 15.1 % (11.5-14.5); WBC 4.5 10x3/uL (4.8-10.8)
--- NOTE | 2019-10-10 07:15 | NUR ---
RECEIVED PT IN BED EYES CLOSED RESP UNLABORED SKIN W/D NAD NOTED WILL CONTINUE TO MONITOR
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
[2019-10-10 09:09] VITALS: BP 146/56
--- NOTE | 2019-10-10 10:00 | OP ---
PATIENT NAME: MARC CHADWICK MEDICAL RECORD: [id number] :[birth year] LOCATION:D.M2 D.2124 ADMISSION DATE:10/06/19 SURGEON: CHRISTI MAGUIRE MD DATE OF OPERATION: 10/07/2019 PROCEDURE: Left heart catheterization, selective coronary angiography, plus AFRO plus PTCA stenting to the SFA on the right, this all performed via left femoral artery approach 5/4 left and right Brit, 5/4 pig for AFRO and LV&C 6-Uruguayan system for intervention to the right SFA. FINDINGS: Left ventriculography in 30-degree RODRIGUEZ view shows global hypokinesis with reduced EF, estimated EF 30%. CORONARY ANATOMY: LEFT MAIN: Left main is free of disease. LAD: LAD fills for a short period of time and is totally occluded and is seen filling competitive flow from the REED. CIRCUMFLEX: Circumflex is totally occluded distally and fills left to left from the LAD through the REED itself. RIGHT CORONARY ARTERY: The right coronary artery is a smallest vessel with patent stents. REED to LAD is widely patent throughout its course fills the distal LAD nicely as well as collaterals to the circumflex. The pigtail catheter was drawn to the level of the renal arteries. Aortofemoral runoff was performed. Abdominal aorta shows no evidence of aneurysm or dissection with mild wall plaquing. Runoff left system: Left common, external and internal iliac are without disease. The left femoral artery terminates at the level of the previous AKA without significant stenosis. RIGHT SYSTEM: Right iliac system, right common, internal and external are widely patent with only mild wall disease. The right femoral system, the right superficial femoral has a marked luminal irregularities, no flow obstructive stenosis into the distal third where it is totally occluded with a very faint collaterals distally. PLAN: Intervention to the right SFA momentarily. DESCRIPTION OF PROCEDURE: Using a long 6-Uruguayan sheath, we came around the horn and we were finally able to cross the lesion with a Stiff glide catheter. Next, we were able to track a 4.0 balloon through the total occlusion, this inflated up and down the area for 10 atmospheres for 30 to 45 seconds each inflation. Next, a 5.0 x 120 mm stent was placed to cover the entire area of occlusion and postdilated up to a 5.0 balloon up to 12 atmospheres. Final angiography shows excellent resolution of 100% stenosis, no significant residual. Brisk flow distally with 2-vessel runoff. IMPRESSION: Successful percutaneous transluminal coronary angioplasty stenting to the right superficial femoral artery with marked improvement in distal vasculature with two-vessel runoff. TRANSINT:[id number] Voice Confirmation ID: [id number] DOCUMENT ID: [id number] OPERATIVE REPORT [id number] MARC CHADWICK,CHRISTI Powers MD at 1000 CC: [id number] DICTATION DATE: 10/07/19 1110 CLINICAL CARE COORDINATOR: 10/07/19 1606 ADM IN [facility] [address] [place] [id number]
[2019-10-10 12:00] VITALS: BP 133/62
--- NOTE | 2019-10-10 12:19 | NUR ---
Nutrition Follow-up: Ate ~50% of breakfast this AM. Diet: Renal ADA PO intake: 31% avg x 4 meals WT: 135.5# (10/09); 141# (10/07) Labs ntoed: K+ 4.4, PO4 7.9, Alb 3.2 Meds noted: Nephrovite, Protonix, Renvela, Pepcid, electrolyte protocol -Encourage PO intake and honor food preferences within diet restrictions. -+Nepro BID. -Monitor wt; noted daily wts ordered. -RD following.
[2019-10-10 16:00] VITALS: BP 121/47
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
--- NOTE | 2019-10-11 09:38 | PN ---
PATIENT:MARC CHADWICK MEDICAL RECORD: [id number] LOCATION:[address] ADMISSION DATE: 10/06/19 PROGRESS NOTE DATE OF SERVICE: 10/10/2019 SUBJECTIVE: The patient's case was discussed with staff. He has no new complaint. OBJECTIVE: The patient is only partially oriented. He has limited insight about his situation. He denies that he would seek to harm himself or others, but is clearly impaired cognitively. He is calm and cooperative at this time, but he was very agitated last night. ASSESSMENT: Senile dementia of the Alzheimer's type with behavioral disturbances. PLAN: The patient needs to be transferred to the behavioral unit for ongoing medication management, evaluation, and stabilization. I would request he be transferred to the behavioral unit as soon as it is practical to do so. TRANSINT:[id number] Voice Confirmation ID: [id number] DOCUMENT ID: [id number] ALFRED KAUR MD at 0938 CC: [id number] DICTATION DATE: 10/10/19 1513 PEST CONTROLLER: 10/10/19 1523 DIS IN 10/10/19 [facility] [address] [place] [address]
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
== END 2019-10-10 19:38 | DRG 252 ==
LOC: D.ER 14:31 → D.M2 16:01 → OBSVTIME 16:01 → D.M2 22:56
PROVIDERS: Family Medicine; Internal Medicine Cardiovascular Disease; Internal Medicine Interventional Cardiology; Internal Medicine Nephrology; ADMIT Internal Medicine Nephrology; ATTEND Internal Medicine Nephrology
PROC: 4A023N7 Measurement of Cardiac Sampling and Pressure, Left Heart, Percutaneous Approach (ICD-10-PCS; principal; 2019-10-07 08:30)
PROC: 047K3DZ Dilation of Right Femoral Artery with Intraluminal Device, Percutaneous Approach (ICD-10-PCS; 2019-10-07 08:30)
PROC: B2151ZZ Fluoroscopy of Left Heart using Low Osmolar Contrast (ICD-10-PCS; 2019-10-07 08:30)
DX: I25.110 Atherosclerotic heart disease of native coronary artery with unstable angina pectoris (principal); I21.4 Non-ST elevation (NSTEMI) myocardial infarction; N18.6 End stage renal disease; G93.41 Metabolic encephalopathy; I12.0 Hypertensive chronic kidney disease with stage 5 chronic kidney disease or end stage renal disease; F02.81 Dementia in other diseases classified elsewhere, unspecified severity, with behavioral disturbance; I25.5 Ischemic cardiomyopathy; Z89.612 Acquired absence of left leg above knee; K21.9 Gastro-esophageal reflux disease without esophagitis; E11.22 Type 2 diabetes mellitus with diabetic chronic kidney disease; F43.10 Post-traumatic stress disorder, unspecified; F32.9 Major depressive disorder, single episode, unspecified; G30.1 Alzheimer's disease with late onset

== ENCOUNTER 2019-10-10 16:12 | Inpatient (IN) | payer MEDICARE ==
[~2019-10-10] VITALS: Ht 165.1 cm; Wt 69.6 kg
[~2019-10-10 16:12] MED LIST changes: +ISOSORBIDE MONO20 MG PO; +Xarelto PO
[2019-10-10 20:51] VITALS: BP 184/77
--- NOTE | 2019-10-10 20:55 | NUR ---
NEW ADMIT TO DOCTOR VLADISLAV FROM [facility] 2, RELATED TO ALTERED MENTAL STATUS. HE IS A HEMO DIALYSIS PATIENT, , , SAT. PATIENT WAS CALM AND COOPERATIVE UPON ARRIVAL. CONOR HAS A CODE STAUJauncho OF MED CODE. HE GAVE VERBAL CONSENT FOR ADMIT. BRANDON ALARM IS ACTIVE. CONTINUES TO BE CALM AND COOPERATIVE WITH CARE AND ASSESSMENT.
[2019-10-11 02:43] VITALS: BP 184/77; BMI 22.8
[2019-10-11 08:31] LABS: HEMATOCRIT 39.1 % (42.0-54.0); HEMOGLOBIN 12.3 g/dL (13.5-17.5); LYMPHOCYTES 21.6 % (15-50); MCH 30.1 pg (26.0-34.0); MCHC 31.5 g/dL (31.0-37.0); MCV 95.8 fL (80.0-100.0); MEAN PLATELET VOLUME 8.9 fL (7.4-10.4); NEUTROPHILS 65.5 % (40-80); RBC 4.08 10x6/uL (4.20-6.10); RDW 15.3 % (11.5-14.5); WBC 4.8 10x3/uL (4.8-10.8)
[2019-10-11 08:32] LABS: PLATELET COUNT 148 10x3/uL (130-400)
[2019-10-11 08:41] VITALS: BP 135/68
[2019-10-11 08:49] LABS: ALBUMIN 3.8 g/dL (3.4-5.0); ANION GAP 17.1 mmol/L (8-16); BILIRUBIN - TOTAL 0.54 mg/dL (0.2-1.3); CALCIUM 8.9 mg/dL (8.5-10.1); CARBON DIOXIDE 26.9 mmol/L (21.0-32.0); CHOL - HDL RATIO 3.8 ratio (2.3-4.9); CREATININE - SERUM 10.6 mg/dL (0.6-1.3); LDL-HDL RATIO 1.9 ratio (1.5-3.5); PROTEIN - SERUM 7.5 g/dL (6.4-8.2); THYROID STIMULATING HORMONE 0.43 uIU/mL (0.36-3.74)
--- NOTE | 2019-10-11 12:00 | NUR ---
RECEIVED IN HALLWAY OUTSIDE OF NURSES STATION. CALM AND COOPERATIVE WITH CARE AND ASSESSMENT. NO AGITATION. REDIRECT AND REORIENT NEEDED. EATING LUNCH AT THIS TIME. CONTINUE PLAN OF CARE.
[2019-10-11 14:31] VITALS: Ht 165.1 cm; Wt 69.6 kg
--- NOTE | 2019-10-11 19:27 | NUR ---
RECEIVED IN DAYROOM. SITTING IN A CHAIR WITH PEERS WITH PEERS AT HIS SIDE. CALM AND COOPERATIVE WITH CARE AND ASSESSMENT. NO SIGNS OF AGGRESSION. REDIRECT AND REORIENT NEEDED. CONTINUES TO SIT CALMLY IN DAYROOM. CONTINUE PLAN OF CARE.
[2019-10-11 20:24] VITALS: BP 167/66
[2019-10-12 07:12] LABS: RAPID PLASMA REAGIN Non Reactive (Non Reactive)
[2019-10-12 08:00] VITALS: BP 150/54
--- NOTE | 2019-10-12 12:00 | NUR ---
RECEIVED IN HALLWAY OUTSIDE OF NURSES STATION. CALM AND COOPERATIVE WITH CARE AND ASSESSMENT. NO BEHAVIORS. REDIRECT AND REORIENT NEEDED. EATING LUNCH AT THIS TIME. CONTINUE PLAN OF CARE.
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
[2019-10-12 20:04] VITALS: BP 159/67
--- NOTE | 2019-10-12 22:59 | NUR ---
B.) PT IS ALERT AND ORIENTED TO SELF ONLY. HE HAS POOR INSIGHT INTO HIS SITUATION. HE IS ABLE TO MAKE HIS NEEDS KNOWN. HE IS CALM AND COOPERATIVE WITH STAFF FOR THE MOST PART. DIALYSIS NURSE STATES THEY REMOVED 1.5 LITERS. VSS AT THIS TIME. I.) PROVIDED PM MEDICATIONS PRESCRIBED. REDIRECT OFTEN. R.) COMPLIANT WITH ALL MEDICATIONS. DIFFICULT TO REDIRECT AT TIMES. P.) WILL CONTINUE TO MONITOR.
[2019-10-13 10:34] VITALS: BP 150/72
--- NOTE | 2019-10-13 12:00 | NUR ---
RECEIVED IN HALLWAY OUTSIDE OF NURSES STATION. CALM AND COOPEARATIVE WITH CARE AND ASSESSMENT. NO BEHAVIORS NOTED. REDIRECT AND REORIENT NEEDED. EATING AT THIS TIME. CONTINUE PLAN OF CARE.
--- NOTE | 2019-10-13 14:20 | NUR ---
Nutrition Follow-up: Eating well. HD yesterday. Diet: Renal ADA PO intake: 92% avg x 6 meals Wt: 137# (10/10) Last BM: 10/10 No new labs Meds noted: Nephrovite, Miralax, Renvela -Encourage PO intake and honor food preferences within diet restrictions. -Monitor wt. -RD following.
--- NOTE | 2019-10-13 14:44 | PN ---
PATIENT:MARC CHADWICK MEDICAL RECORD: [id number] LOCATION:[facility] [address] ADMISSION DATE: 10/10/19 PROGRESS NOTE DATE OF SERVICE: 10/12/2019 SUBJECTIVE: The patient's case was discussed with staff. He has no new complaint. OBJECTIVE: The patient denies intent to harm himself or others. He is only partially oriented. He has been significantly sedated today for reasons that are not clear. He did have dialysis and it may be associated with the amount of fluid that was withdrawn. ASSESSMENT: Vascular dementia. PLAN: I am going to maintain the patient on current medicines today and we will observe him for evidence of ongoing sedation. He is taking a modest amount of trazodone at bedtime to assist with sleep consolidation, but this should not be making him drowsy during the day. TRANSINT:[id number] Voice Confirmation ID: [id number] DOCUMENT ID: [id number] ALFRED KAUR MD at 1444 CC: [id number] DICTATION DATE: 10/12/19 1606 SCALEHOUSE ATTENDANT: 10/12/19 1639 ADM IN [facility] [address] [place] [address]
[2019-10-13 20:00] VITALS: BP 106/49
--- NOTE | 2019-10-13 22:38 | NUR ---
B)RECEIVED PATIENT SITTING IN THE DAYROOM. ORIENTED TO PERSON, PLACE AND YEAR. POOR INSIGHT RELATES HE IS HERE TO GET THE REST OF HIS LEG "CUT OFF." RELATES HE HAS PAIN IN THAT LEG AND IT'S NOT EVEN THERE. EXPLAINED TO PATIENT THAT IS CALLED PHANTOM PAIN AND PATIENT RELATES "WELL IS THAT FAIR?" CALM AND COOPERATIVE. I)ADMINISTER MEDS AND MONITOR COMPLIANCE. MONITOR FOR PARANOIA AND AGITATAION AND REDIRECT NEEDED. R)MED COMPLIANT. CALM AND COOPEATIVE. NO AGITATION OR PARANOIA OBSERVED. P)CONTINUE POC AND PROVIDE SAFE ENVIRONMENT.
[2019-10-14 09:41] VITALS: BP 142/62
--- NOTE | 2019-10-14 13:47 | PN ---
PATIENT:MARC CHADWICK MEDICAL RECORD: [id number] LOCATION:[facility] [address] ADMISSION DATE: 10/10/19 PROGRESS NOTE DATE OF SERVICE: 10/13/2019 SUBJECTIVE: The patient's case was discussed with staff. He has no new complaint. OBJECTIVE: The patient is more awake and alert today. He has not been combative. I do believe he is appropriate for a fpc and I have discussed this with him. He is willing to be placed in one. ASSESSMENT: Vascular dementia. PLAN: The patient will be observed for symptoms and behaviors, requiring additional medication management. As those come up, they will be addressed, but at this point, the treatment team is moving forward with the placement. TRANSINT:[id number] Voice Confirmation ID: [id number] DOCUMENT ID: [id number] ALFRED KAUR MD at 1347 CC: [id number] DICTATION DATE: 10/13/19 1455 RN TRANSITIONAL: 10/13/19 2157 ADM IN [place] [id number] [place] [address]
--- NOTE | 2019-10-14 14:59 | NUR ---
PT IN DIALYSIS AT THIS TIME. PT IS CONFUSED AND ALERT TO SELF, PLACE AND YEAR. PT COMPLIANT WITH VITALS, ASSESSMENT, MEDS. PT WAS IN A GOOD MOOD JOKING WITH STAFF. PT STATES HE IS HERE CAUSE OF HIS DIALYSIS. PT DID C/O OF PAIN TO HIS TOE. TYLENLOL 650 MG ADMINISTERED FOR PAIN. CHAIR ALARM IN PLACE AND ACTIVE. WILL CONT PLAN OF CARE.
--- NOTE | 2019-10-14 18:22 | NUR ---
pt c/o of pain after dialysis. nurse offered pt tylenol 325 mg po for discomfort. pt refused stating "i'm way more than that. im hurting like hell. id rather not take it all." nurse called arpita jeffries apn for a pain medication. hydrocodone 5 mg one time dose for pain. will administer for pain.
[2019-10-14 20:00] VITALS: BP 102/57
--- NOTE | 2019-10-14 20:11 | NUR ---
PATIENT IS CALM, COOPERATIVE, MAKES SIMPLE NEEDS KNOWN, COMPLIANT WITH MEDS, CONFUSED, FORGETFUL, NO ADVERSE REACATION NOTED. WILL FOLLOW POC
[2019-10-15 09:03] VITALS: BP 146/64
--- NOTE | 2019-10-15 09:20 | NUR ---
PT C/O OF PAIN TO HIS FOOT. NURSE EXAMINED FOOT NOTED REDNESS OF ALL TOES, AND BOTTOM OF FOOT. NOT WARM TO THE TOUCH. NOTIFIED Lilia REYNOLDS OF PT COMLIANT.
--- NOTE | 2019-10-15 10:20 | NUR ---
Lilia REYNOLDS EXAMINED PTS FOOT STATED IT WAS HOT TO TOUCH NOW. NURSE NOTIFIED. SHANIA EVANS FOR RENAL. SHE STATED SHE WOULD START PT ON MEDICATIONS.
--- NOTE | 2019-10-15 12:44 | PN ---
PATIENT:MARC CHADWICK MEDICAL RECORD: [id number] LOCATION:[facility] [address] ADMISSION DATE: 10/10/19 PROGRESS NOTE DATE OF SERVICE: 10/14/2019 SUBJECTIVE: The patient's case was discussed with staff. He has no new complaint. OBJECTIVE: The patient has been in better behavioral control. He has limited insight about his situation. He is tolerating his medications well and is willing to go to a prison. ASSESSMENT: Dementia. PLAN: The patient is going to be given Namenda at a dose of 2.5 mg twice daily to assist with his underlying confusion. He will be monitored for clinical changes associated with its use. TRANSINT:[id number] Voice Confirmation ID: [id number] DOCUMENT ID: [id number] ALFRED KAUR MD at 1244 CC: [id number] DICTATION DATE: 10/14/19 1428 CDL COMPANY DRIVER: 10/14/19 2144 ADM IN [place] [id number] [place] [address]
--- NOTE | 2019-10-15 15:51 | NUR ---
PT SITTING AND TALKING WITH NURSE AT THIS TIME. PT IS FRIENDLY WITH STAFF AND PEERS. NO BEHAVIORS NOTED. PT COMPLIANT WITH MEDS, VITALS AND ASSESSMENT. PT CONTS ON DIALYSIS. PT CAN MAKE NEEDS KNOWN. DOCTOR ORDERED A ONE TIME DOSE OF VANCOMYCIN 1 GRAM OVER 60 MINS. PT REQUIRES 2X ASSISTANCE WITH TRANSFER. CHAIR ALARM IN PLACE AND ACTIVE. WILL CONT PLAN OF CARE.
--- NOTE | 2019-10-15 17:12 | NUR ---
NURSE ATTEMPTED IV 3X UNSUCCESSFUL. WILL HAVE ANOTHER NURSE ATTEMPT IV.
[2019-10-15 20:00] VITALS: BP 147/60
--- NOTE | 2019-10-15 22:58 | NUR ---
B)RECEIVED PATIENT SITTING IN THE DAYROOM. ORIIENTED TO SELF ONLY. POOR INSIGHT INTO THE REASON FOR HOSPITALIZATION REALTING "HIGH BLOOD PRESSURE AND WANTED TO COME HERE. HAD IT FOR 10 YEARS." DELUSIONAL RELATING "WENT FROM [place] TO [place] TO DO SOMETHING AND NOW CAN'T GET HOLD OF NANCY." I)ADMINISTER MEDS AND MONITOR COMPLIANCE. REORIENT NEEDED. R)MED COMPLIANT. POOR REORIENTATION DUE TO IMPAIRED ABILITY TO RETAIN INFORMATION. P)CONTINUE POC AND PROVIDE SAFE ENVIRONMENT.
[2019-10-16 09:33] VITALS: BP 174/82
--- NOTE | 2019-10-16 10:03 | PN ---
PATIENT:MARC CHADWICK MEDICAL RECORD: [id number] LOCATION:[facility] [address] ADMISSION DATE: 10/10/19 PROGRESS NOTE DATE OF SERVICE: 10/15/2019 SUBJECTIVE: The patient's case was discussed with staff. He has no new complaint. OBJECTIVE: The patient is in good behavioral control, but insists that he is in a great deal of pain. ASSESSMENT: Dementia. PLAN: The patient is going to be given Tylenol on a scheduled basis. He will be monitored for clinical changes associated with its use. TRANSINT:[id number] Voice Confirmation ID: [id number] DOCUMENT ID: [id number] ALFRED KAUR MD at 1003 CC: [id number] DICTATION DATE: 10/15/19 1401 SANFORIZING MACHINE OPERATOR: 10/15/19 1757 ADM IN [facility] [address] [place] [address]
--- NOTE | 2019-10-16 19:58 | NUR ---
RECEIVED IN BEDROOM. RESTING IN BED WITH EYES OPEN. CALM AND COOPERATIVE WITH CARE AND ASSESSMENT. NO SIGNS OF AGGRESSION. REDIRECT AND REORIENT NEEDED. RESTING IN BED WITH MHT AT BEDSIDE AT THIS TIME. CONTINUE PLAN OF CARE.
[2019-10-16 20:00] VITALS: BP 157/80
[2019-10-17 09:39] VITALS: BP 129/48
--- NOTE | 2019-10-17 12:00 | NUR ---
RECEIVED IN HALLWAY OUTSIDE OF NURSES STATION. CALM AND COOPERATIVE WITH CARE AND ASSESSMENT. NO PARANOIA. NO AGITATION. REDIRECT AND REORIENT NEEDED. EATING LUNCH AT THIS TIME. CONTINUE PLAN OF CARE.
--- NOTE | 2019-10-17 13:21 | PN ---
PATIENT:MARC CHADWICK MEDICAL RECORD: [id number] LOCATION:[facility] ADMISSION DATE: 10/10/19 PROGRESS NOTE DATE OF SERVICE: 10/16/2019 SUBJECTIVE: The patient's case was discussed with staff. He has no new complaint. OBJECTIVE: The patient is sleeping and eating better. He is only partially oriented. He has been cooperative with dialysis at this point. ASSESSMENT: Vascular dementia. PLAN: The patient is in need of 42-epag-j-day supervision. senior living placement is being sought. TRANSINT:[id number] Voice Confirmation ID: [id number] DOCUMENT ID: [id number] ALFRED KAUR MD at 1321 CC: [id number] DICTATION DATE: 10/16/19 1142 HOME HEALTH CLINICAL LIAISON: 10/16/19 1638 ADM IN [facility] [address] [place] [address]
--- NOTE | 2019-10-17 19:27 | NUR ---
RECEIVED IN DAYROOM. HIGH ANXIETY. INCREASING AGITATION WITH REDIRECTION. ATTEMPTS TO REDIRECT UNSUCCESSFUL. PRN ATIVAN 0.5 MG IM GIVEN FOR ANXIETY AND PRN HALDOL 2 MG IM GIVEN FOR PSYCHOTIC BEHAVIOR. CONTINUE TO ATTEMPT TO REDIRECT. IN HALLWAY OUTSIDE OF NURSES STATION AT THIS TIME. CONTINUE PLAN OF CARE.
[2019-10-17 19:49] VITALS: BP 144/56
--- NOTE | 2019-10-18 00:05 | NUR ---
CONTINUES TO BED RESTLES. IN HALLWAY IN RECLINER.
--- NOTE | 2019-10-18 01:44 | NUR ---
CONTINUES TO BE RESTLESS WITH INCREASING ANXIETY. ATTEMPTED TO KICK NURSE IN THE FACE WHEN REDIRECTED. PRN ATIVAN 0.5 MG IM GIVEN FOR ANXIETY AND PRN HALDOL 2 MG IM GIVEN FOR PSYCHOTIC BEHAVIOR. CONTINUE TO MONITOR.
--- NOTE | 2019-10-18 04:48 | NUR ---
CONTINUES TO BE VERY RESTLESS.
[2019-10-18 08:09] VITALS: BP 176/58
--- NOTE | 2019-10-18 12:00 | NUR ---
RECEIVED IN HALLWAY OUTSIDE OF NURSES STATION. CALM AND COOPERATIVE WITH CARE AND ASSESSMENT. NO BEHAVIORS TODAY. REDIRECT AND REORIENT NEEDED. EATING LUNCH AT THIS TIME. CONTINUE PLAN OF CARE.
--- NOTE | 2019-10-18 12:35 | NUR ---
IV TO LEFT FOREARM DISLODGED. CATHETER TIP INTACT. PRESSURE HELD TO SITE, NO FURTHER BLEEDING. 2X2 GAUZE APPLIED AND SECURED WITH TAPE. TOLERATED IV REMOVAL WELL.
--- NOTE | 2019-10-18 13:18 | PN ---
PATIENT:MARC CHADWICK MEDICAL RECORD: [id number] LOCATION:[facility]112 ADMISSION DATE: 10/10/19 PROGRESS NOTE DATE OF SERVICE: 10/17/2019 SUBJECTIVE: The patient's case was discussed with staff. He has no new complaint. OBJECTIVE: The patient is in good behavioral control with limited insight about his condition. He has not been aggressive. ASSESSMENT: Dementia. PLAN: The patient's Namenda is going to be increased to 5 mg daily. Namenda is being used to treat his underlying cognitive impairment. He will be monitored for clinical changes associated with its use. TRANSINT:[id number] Voice Confirmation ID: [id number] DOCUMENT ID: [id number] ALFRED KAUR MD at 1318 CC: [id number] DICTATION DATE: 10/17/19 1525 PLATE FURNACE OPERATOR: 10/17/19 2245 ADM IN [facility] [address] [place] [address]
--- NOTE | 2019-10-18 20:09 | NUR ---
RECEIVED IN DAYROOM. RESTING IN QUIETLY IN A RECLINER WITH PEERS AT HIS SIDE. CALMA ND COOPERATIVE WITH CARE AND ASSESMENT. NO SIGNS OF AGGRESSION. REDIRECT AND REORIENT NEEDED. CONTINUES TO STI CALMLY IN DAYROOM. CONTINUE PLAN OF CARE.
[2019-10-18 20:11] VITALS: BP 159/72
[2019-10-19 08:36] VITALS: BP 156/57
[2019-10-19 09:14] LABS: ANION GAP 17.1 mmol/L (8-16); CALCIUM 9.4 mg/dL (8.5-10.1); CARBON DIOXIDE 24.8 mmol/L (21.0-32.0); CREATININE - SERUM 8.5 mg/dL (0.6-1.3); POTASSIUM - SERUM 5.9 mmol/L (3.5-5.1)
[2019-10-19 09:33] LABS: BASOPHILS 0.2 % (0-2); EOSINOPHILS 5.7 % (0-7); HEMATOCRIT 29.8 % (42.0-54.0); HEMOGLOBIN 9.1 g/dL (13.5-17.5); IMMATURE GRANULOCYTES 0.2 % (0-5); LYMPHOCYTES 11.6 % (15-50); MCH 30.1 pg (26.0-34.0); MCHC 30.5 g/dL (31.0-37.0); MCV 98.7 fL (80.0-100.0); MEAN PLATELET VOLUME 10.5 fL (7.4-10.4); MONOCYTES 9.2 % (2-11); NEUTROPHILS 73.1 % (40-80); RBC 3.02 10x6/uL (4.20-6.10); RDW 15.2 % (11.5-14.5); WBC 5.1 10x3/uL (4.8-10.8)
[2019-10-19 09:45] LABS: PLATELET COUNT 104 10x3/uL (130-400)
--- NOTE | 2019-10-19 13:35 | PN ---
PATIENT:MARC CHADWICK MEDICAL RECORD: [id number] LOCATION:[facility] ADMISSION DATE: 10/10/19 PROGRESS NOTE DATE OF SERVICE: 10/18/2019 SUBJECTIVE: The patient's case was discussed with staff. He has no new complaint. OBJECTIVE: The patient looks a little sedated today, although he is easily arousable. Unfortunately, he was quite agitated last night with serious and significant sundowning behavior that was so disruptive. He required p.r.n. medication twice to calm him. ASSESSMENT: Dementia. PLAN: The patient is going to be treated with scheduled dose of Geodon to address his disruptive behaviors. He will be monitored for clinical changes associated with its use. His long-term prognosis is guarded. TRANSINT:[id number] Voice Confirmation ID: [id number] DOCUMENT ID: [id number] ALFRED KAUR MD at 1335 CC: [id number] DICTATION DATE: 10/18/19 1545 COMMERCIAL ROOFER: 10/19/19 0056 ADM IN [facility] [address] [place] [address]
--- NOTE | 2019-10-19 18:14 | NUR ---
RECEIVED THIS AM IN WC AT NURSES STATION.QUITE AND COOPERATIVENO BEHAVIORS OBSERVED.PROPELLS SELF IN WHEELCHAIR.WILL CONTINUE WITH CURRENT PLAN OF CARE.
--- NOTE | 2019-10-19 18:22 | NUR ---
PT WITH DIALYSIS AT THIS TIME.
[2019-10-19 20:06] VITALS: BP 131/56
--- NOTE | 2019-10-19 21:26 | NUR ---
UPON ARRIVAL, PATIENT RECEIVING DIALYSIS, NO COMPLIANTS, FLAT AFFECT, MAKES ALL NEEDS KNOWN, COMPLIANT WITH MEDS. NO PARANOIA NOTED. WILL FOLLOW POC
--- NOTE | 2019-10-20 13:57 | NUR ---
Nutrition Follow-up: Eating well overall (75-100%) but refused meals on 10/17. Noted Megace added. HD yesterday. Diet: Renal ADA PO intake: 63% avg x 9 meals (10/16-10/18) Wt: 148# (10/15); 137# (10/10) Last BM: 10/18 Labs noted (10/18): Na 134, K+ 5.9, Glu 115 Meds noted: Megace, Protonix, Nephrovite, Miralax, Renvela -Encourage PO intake and honor food preferences within diet restrictions. -Offer Nepro with meals. -Monitor wt. -RD following.
--- NOTE | 2019-10-20 14:01 | PN ---
PATIENT:MARC CHADWICK MEDICAL RECORD: [id number] LOCATION:[facility]112 ADMISSION DATE: 10/10/19 PROGRESS NOTE DATE OF SERVICE: 10/19/2019 SUBJECTIVE: The patient's case was discussed with staff. He has no new complaint. OBJECTIVE: The patient is in good behavioral control, but unfortunately is not eating or drinking adequately. He says that he is eating all of his meals. When asked about it, but that is not true. He is not eating at all. ASSESSMENT: Dementia. PLAN: The patient will be given Megace to assist with appetite stimulation. His long-term prognosis is guarded. I believe the appetite suppression is related to an advanced dementia and not some sort of underlying mood or eating disorder. TRANSINT:[id number] Voice Confirmation ID: [id number] DOCUMENT ID: [id number] ALFRED KAUR MD at 1401 CC: [id number] DICTATION DATE: 10/19/19 1528 UROLOGIC SURGEON: 10/20/19 0109 ADM IN [place] [id number] [place] [id number]
[2019-10-20 16:03] VITALS: BP 142/59
--- NOTE | 2019-10-20 18:19 | NUR ---
PT SITTING IN CHAIR AT THIS TIME. CONFUSED AND ORIENTED TO SELF ONLY. REDIRECT AND REORIENT NEEDED. PT CAN MAKE NEEDS KNOWN. REQUIRES 2X ASSIST WITH ADLS. COMPLIANT WITH MEDS, VITALS AND ASSESSMENTS. CHAIR ALARM IN PLACE AND ACTIVE. WILL CONT PLAN OF CARE.
[2019-10-20 20:00] VITALS: BP 120/45
--- NOTE | 2019-10-20 23:40 | NUR ---
B)RECEIVED PATIENT SITTING IN THE DAYROOM. CONFUSED AND DISORIENTED. CALLED NURSE OVER TO HIM AND RELATED "THIS PLACE IS A FUCKING NIGHTMARE. DON'T LIKE THE WAY THINGS ARE RUN. I'M PISSED OFF. HAVE TROUBLE WITH THE PEOPLE HERE. I'LL NEVER COME BACK HERE AND IF THEY MAKE ME I'LL GET A GUN AND DO WHAT I'VE GOT TO DO." EXPLAINED TO PATIENT LONG HE MAKES THREATENING STATEMENTS HE WILL NOT MEET DISCHARGE CRITERIA. PATIENT RELATED "I DON'T CARE I'LL DO WHAT I HAVE TO." I)ADMINISTER MEDS AND MONITOR COMPLIANCE. REDIRECT FOR THREATENING STATEMENTS. R)MED COMPLIANT. POOR REDIRECTION DUE TO AGITATED STATE. P)CONTINUE POC AND PROVIDE SAFE ENVIRONMENT.
[2019-10-21 09:57] VITALS: BP 187/90
--- NOTE | 2019-10-21 14:14 | NUR ---
The patient was very sleepy this am and he ate breakfast and took his medication. He finished dialysis and he is sleepy. He is sitting in a gerichair. He assists staff with transfers with his right leg. Provide prescribed meds. The patient is compliant with meds. He has not shown any aggression today. Provide prescribed meds. The patient is compliant with meds. Continue POC.
[2019-10-21 20:00] VITALS: BP 139/49
--- NOTE | 2019-10-21 22:30 | NUR ---
B.) PT IS ALERT AND ORIENTED TO SELF. HE IS RECIEVED IN A GERICHAIR IN THE BERNARD OUTSIDE THE NURSES STATION. HE IS LABILE WITH HIS MOODS AND EASILY AGITATED WITH STAFF. HE IS PREOCCUPIED WITH THE STRUCTURE OF THE BUILDING NOT BEING UP TO FIRE CODE. I.) PROVIDED PM MEDICATIONS PRESCRIBED. REDIRECT OFTEN. R.) COMPLIANT WITH ALL MEDICATIONS. DIFFICULT TO REDIRECT. P.) WILL CONTINUE TO MONITOR.
[2019-10-22 06:49] LABS: CALCIUM 9.4 mg/dL (8.5-10.1); CARBON DIOXIDE 25.2 mmol/L (21.0-32.0); CREATININE - SERUM 6.6 mg/dL (0.6-1.3); POTASSIUM - SERUM 4.2 mmol/L (3.5-5.1)
[2019-10-22 06:57] LABS: BASOPHILS 0 % (0-2); HEMATOCRIT 27.7 % (42.0-54.0); HEMOGLOBIN 8.4 g/dL (13.5-17.5); IMMATURE GRANULOCYTES 0.2 % (0-5); LYMPHOCYTES 12.8 % (15-50); MCHC 30.3 g/dL (31.0-37.0); MCV 98.9 fL (80.0-100.0); MEAN PLATELET VOLUME 10.1 fL (7.4-10.4); MONOCYTES 9.1 % (2-11); NEUTROPHILS 74.9 % (40-80); PLATELET COUNT 110 10x3/uL (130-400); RDW 15.4 % (11.5-14.5); WBC 4.7 10x3/uL (4.8-10.8)
[2019-10-22 08:09] VITALS: BP 168/71
--- NOTE | 2019-10-22 08:11 | NUR ---
The patient is confused and he is trying to get up out of the chair. He keeps saying "I need to go home." Explained to him multiple times that he is here in the hospital. Brought him into the nurses station to keep him company so that he will not get up and fall. Provide prescribed meds. The patient has poor insight into his situation. Continue POC.
[2019-10-22 11:44] LABS: % SATURATION 30 % (15-55); IRON 71 ug/dl (35-150); TOTAL IRON BIND CAPACITY 230 ug/dl (260-445); UNSAT IRON BIND CAPACITY 159 ug/dl (150-375)
[2019-10-22 20:00] VITALS: BP 117/48
--- NOTE | 2019-10-22 22:37 | NUR ---
B.) PT IS ALERT AND ORIENTED TO SELF ONLY. HE HAS POOR INSIGHT INTO HIS SITUATION. HE IS OBSERVED BEING SEXUALLY INAPPROPRIATE WITH STAFF AND PEERS. HE IS RECEIVED IN THE GERICHAIR IN THE DAYROOM. I.) PROVIDED PM MEDICATIONS PRESCRIBED. REDIRECT OFTEN. R.) COMPLIANT WITH ALL MEDICATIONS. EASY TO REDIRECT. P.) WILL CONTINUE TO MONITOR.
[2019-10-23 08:34] VITALS: BP 149/61
--- NOTE | 2019-10-23 15:43 | NUR ---
RECEIVED THIS AM IN RECLINER AT NURSES STATION.IS CONFUSED AND DISORIENTED.COMPLIANT WITH MEDS.REPEATEDLY STATES HE HAS TO GO HOME.ATTEMPTS TO GET OUT OF CHAIR WITHOUT ASSIST,STATES "IM GOING TO WALK HOME".IS A LEFT AKA.UNABLE TO WALK.EQUIRES TOTAL CARE.WILL CONTINUE WITH CURRENT PLAN OF CARE,MONITOR FOR CHANGES AND SAFETY.
--- NOTE | 2019-10-23 19:52 | NUR ---
RECEIVED IN DAYROOM. SITTING IN A CHAIR WITH PEERS AT HIS SIDE. CALM AND COOPERATIVE WITH CARE AND ASSESSMENT. NO SIGNS OF AGGRESSION OR PARANOIA. REDIRECT AND REORIENT NEEDED. CONTINUES TO SIT CALMLY IN DAYROOM. CONTINUE PLAN OF CARE.
[2019-10-23 20:04] VITALS: BP 120/82
--- NOTE | 2019-10-24 00:33 | NUR ---
RESTLESS. ATTEMPTS TO EXIT BE WITHOUT ASSIST. BRANDON ALARM SOUNDING.
[2019-10-24 07:11] LABS: BASOPHILS 0.2 % (0-2); HEMATOCRIT 27.5 % (42.0-54.0); HEMOGLOBIN 8.6 g/dL (13.5-17.5); IMMATURE GRANULOCYTES 0.2 % (0-5); LYMPHOCYTES 11.9 % (15-50); MCH 30.5 pg (26.0-34.0); MCHC 31.3 g/dL (31.0-37.0); MCV 97.5 fL (80.0-100.0); MEAN PLATELET VOLUME 9.9 fL (7.4-10.4); MONOCYTES 10.1 % (2-11); NEUTROPHILS 76.6 % (40-80); PLATELET COUNT 114 10x3/uL (130-400); RBC 2.82 10x6/uL (4.20-6.10); RDW 15.8 % (11.5-14.5); WBC 5.7 10x3/uL (4.8-10.8)
[2019-10-24 07:40] VITALS: BP 160/72
[2019-10-24 07:41] LABS: ALBUMIN 3.6 g/dL (3.4-5.0); ANION GAP 16.8 mmol/L (8-16); BILIRUBIN - TOTAL 0.45 mg/dL (0.2-1.3); CALCIUM 9.1 mg/dL (8.5-10.1); CARBON DIOXIDE 24.4 mmol/L (21.0-32.0); CREATININE - SERUM 9.7 mg/dL (0.6-1.3); POTASSIUM - SERUM 5.2 mmol/L (3.5-5.1); PROTEIN - SERUM 6.8 g/dL (6.4-8.2)
--- NOTE | 2019-10-24 12:00 | NUR ---
RECEIVED IN HALLWAY OUTSIDE OF NURSES STATION. CALM AND COOPERATIVE WITH CARE AND ASSESSMENT. AGITATED AT TIMES WITH REDIRECTION. REDIRECT AND REORIENT NEEDED. EATING LUNCH AT THIS TIME. CONTINUE PLAN OF CARE.
--- NOTE | 2019-10-24 12:04 | PN ---
PATIENT:MARC CHADWICK MEDICAL RECORD: [id number] LOCATION:[facility] ADMISSION DATE: 10/10/19 PROGRESS NOTE DATE OF SERVICE: 10/20/2019 SUBJECTIVE: The patient's case was discussed with staff. He has no new complaint. OBJECTIVE: The patient is cooperative with treatment. He has been irritable, but not openly aggressive. He is only partially oriented. ASSESSMENT: Vascular dementia. PLAN: Current medicines and therapies have been reviewed and will be maintained. Long-term prognosis is guarded. TRANSINT:[id number] Voice Confirmation ID: [id number] DOCUMENT ID: [id number] ALFRED KAUR MD at 1204 CC: [id number] DICTATION DATE: 10/20/19 1602 HOSE HANDLER: 10/20/19 1800 ADM IN [place] [id number] [place] [address]
--- NOTE | 2019-10-24 20:08 | NUR ---
RECEIVED IN HALLWAY OUTSIDE OF NURSES STATION. REFUSED DIALYSIS THIS PM. COOPERATIVE WITH ASSESSMENT AND CARE AT THIS TIME. REDIRECT AND REORIENT NEEDED. SITTING CALMLY IN HALLWAY AT THIS TIME. CONTINUE PLAN OF CAER.
[2019-10-24 21:00] VITALS: BP 153/75
[2019-10-25 08:04] VITALS: BP 141/54
--- NOTE | 2019-10-25 15:00 | PN ---
PATIENT:MARC CHADWICK MEDICAL RECORD: [id number] LOCATION:[facility]112 ADMISSION DATE: 10/10/19 PROGRESS NOTE DATE OF SERVICE: 10/24/2019 SUBJECTIVE: The patient's case was discussed with staff. He has no new complaint. OBJECTIVE: The patient denies intent to harm himself or others. He is tolerating his medicines well. Eye contact is fair. ASSESSMENT: Dementia. PLAN: The patient is not sleeping well at night. The higher dose of trazodone has not been very effective. I am going to give him a low dose of Ativan to assist with sleep consolidation. TRANSINT:[id number] Voice Confirmation ID: [id number] DOCUMENT ID: [id number] ALFRED KAUR MD at 1500 CC: [id number] DICTATION DATE: 10/24/19 1308 OWNER OPERATOR TANKER TRUCK DRIVER: 10/24/19 1334 ADM IN [facility] [address] [place] [address]
--- NOTE | 2019-10-25 17:00 | NUR ---
RECEIVED IN HALLWAY OUTSIDE OF NURSES STATION. CALM AND COOPERATIVE WITH CARE AND ASSESSMENT. VERY RESTLESS. NO AGGRESSION. REDIRECT AND REORIENT NEEDED. EATING AT THIS TIME. CONTINUE PLAN OF CARE.
[2019-10-25 20:09] VITALS: BP 162/75
--- NOTE | 2019-10-25 20:10 | NUR ---
RECEIVED IN DAYROOM. LAYING IN A RECLINING CHAIR. RESTLESS. CALM AND COOPERATIVE WITH CARE AND ASSESSMENT. NO SIGNS OF PARANOIA OR AGGRESSION AT THIS TIME. REDIRECT AND REORIENT NEEDED. CONTINUES TO BE RESTLESS. CONTINUE PLAN OF CAER.
--- NOTE | 2019-10-26 12:29 | NUR ---
The patient is very sleepy today, he is waking to his name only. He has poor insight into his situation. He is coughing a lot and he lethargic, he is not eating well. Provide prescribed meds. Crushed the patient's meds and he was compliant. He has not shown any paranoia, or agitation. He has not been yelling out today. Continue POC.
--- NOTE | 2019-10-26 14:51 | PN ---
PATIENT:MARC CHADWICK MEDICAL RECORD: [id number] LOCATION:[facility]112 ADMISSION DATE: 10/10/19 PROGRESS NOTE DATE OF SERVICE: 10/25/2019 SUBJECTIVE: The patient's case was discussed with staff. He has no new complaint. OBJECTIVE: The patient is impaired cognitively, but has not been disruptive to any appreciable extent. He has very limited insight about his situation, but has not been disruptive. ASSESSMENT: Vascular dementia. PLAN: The patient will be treated with current medicines; however, the gabapentin will be increased slightly. He will be monitored for clinical changes associated with its use. I anticipate he can be discharged soon. The office of long-term care is not allowing his discharge currently. They would like to see him face to face to determine his appropriateness for a mcc. This is despite the fact that he is in his 70s diagnosed with vascular dementia and is missing one leg and is on dialysis. For some reason, they think there may be some question as to whether or not he is a mcc appropriate. TRANSINT:[id number] Voice Confirmation ID: [id number] DOCUMENT ID: [id number] ALFRED KAUR MD at 1451 CC: [id number] DICTATION DATE: 10/25/19 1528 BRISTLE MACHINE OPERATOR: 10/25/19 2248 ADM IN [place] [id number] [place] [address]
[2019-10-26 20:00] VITALS: BP 159/73
--- NOTE | 2019-10-26 22:00 | NUR ---
B.) PT IS RECEIVED IN HIS ROOM IN HIS BED. HE IS HALLUCINATING. HE IS RESPONSIVE TO VERBAL AND PHYSICAL STIMULI. HE HAS POOR INSIGHT INTO HIS SITUATION. HE IS YELLING OUT AT TIMES. I.) PROVIDED PM MEDICATIONS PRESCRIBED. REDIRECT OFTEN. R.) COMPLIANT WITH ALL MEDICATIONS. DIFFICULT TO REDIRECT. P.) WILL CONTINUE TO MONITOR.
--- NOTE | 2019-10-27 00:44 | NUR ---
PT IS FOUND IN BED BY TECH WITH BLOOD IN STOOL. PT BREATHING SHALLOW AND RAPID. UNRESPONSIVE. STERNAL RUB ATTEMPTED PT REMAINS UNRESPONSIVE. RAPID RESPNOSE CALLED AT 0015. PT BP 129/91 HR [address] RAE PAGEJames. FLUMAZENIL ADMINISTERED. PT IS PLACED ON AN AMBU BAG O2 96%. PT IS MORE ALERT BUT STILL DIFFICULT TO AROUSE. CXR RECEIVED. IV PLACECD IN L AC RUNNING NS 0.95 BOLUS BY GRAVITY. PT TRANSFERED TO ICU WITH MADDISON RN, AND MAYELA RT. STILL NO RESPONSE BY BUTCH.
[2019-10-27 00:57] LABS: BASOPHILS 0.2 % (0-2); EOSINOPHILS 0.2 % (0-7); HEMATOCRIT 28.3 % (42.0-54.0); HEMOGLOBIN 8.7 g/dL (13.5-17.5); IMMATURE GRANULOCYTES 0.2 % (0-5); LYMPHOCYTES 6.2 % (15-50); MCHC 30.7 g/dL (31.0-37.0); MCV 100.7 fL (80.0-100.0); MONOCYTES 9.6 % (2-11); NEUTROPHILS 83.6 % (40-80); PLATELET COUNT 123 10x3/uL (130-400); RBC 2.81 10x6/uL (4.20-6.10); WBC 8.9 10x3/uL (4.8-10.8)
[2019-10-27 01:20] LABS: ALBUMIN 3.8 g/dL (3.4-5.0); ANION GAP 22.7 mmol/L (8-16); BILIRUBIN - TOTAL 0.57 mg/dL (0.2-1.3); CALCIUM 9.5 mg/dL (8.5-10.1); CARBON DIOXIDE 19.3 mmol/L (21.0-32.0); CREATININE - SERUM 9.8 mg/dL (0.6-1.3); PROTEIN - SERUM 7.5 g/dL (6.4-8.2)
--- NOTE | 2019-10-27 14:39 | PN ---
PATIENT:MARC CHADWICK MEDICAL RECORD: [id number] LOCATION:[facility] ADMISSION DATE: 10/10/19 PROGRESS NOTE DATE OF SERVICE: 10/26/2019 SUBJECTIVE: The patient's case was discussed with staff. He has no new complaint. OBJECTIVE: The patient is in good behavioral control. He is impaired cognitively. He has not been disruptive to any appreciable degree. He did sleep better last night, but unfortunately his oral intake is still poor. ASSESSMENT: Dementia. PLAN: The patient will be maintained on current medicines, which have been reviewed. His long-term prognosis is guarded. Both supportive and educational interventions were made. He will be transitioned out of the hospital soon. TRANSINT:[id number] Voice Confirmation ID: [id number] DOCUMENT ID: [id number] ALFRED KAUR MD at 1439 CC: [id number] DICTATION DATE: 10/26/19 1637 URBAN RENEWAL MANAGER: 10/27/19 0213 DIS IN 10/27/19 [facility] [address] [place] [address]
== END 2019-10-27 01:00 | disposition short-term general hospital (02) | DRG 884 ==
LOC: D.PSYCH 16:12
PROVIDERS: Family Medicine; Internal Medicine; Internal Medicine Nephrology; ADMIT Psychiatry & Neurology Psychiatry; ATTEND Psychiatry & Neurology Psychiatry
DX: F01.51 Vascular dementia, unspecified severity, with behavioral disturbance (principal); N18.6 End stage renal disease; I12.0 Hypertensive chronic kidney disease with stage 5 chronic kidney disease or end stage renal disease; L03.115 Cellulitis of right lower limb; I69.319 Unspecified symptoms and signs involving cognitive functions following cerebral infarction; E11.22 Type 2 diabetes mellitus with diabetic chronic kidney disease; Z99.2 Dependence on renal dialysis; D63.1 Anemia in chronic kidney disease; I25.10 Atherosclerotic heart disease of native coronary artery without angina pectoris; Z95.0 Presence of cardiac pacemaker; R53.1 Weakness; I73.9 Peripheral vascular disease, unspecified; E11.40 Type 2 diabetes mellitus with diabetic neuropathy, unspecified; K21.9 Gastro-esophageal reflux disease without esophagitis; K59.00 Constipation, unspecified; N40.0 Benign prostatic hyperplasia without lower urinary tract symptoms; F43.10 Post-traumatic stress disorder, unspecified; E78.5 Hyperlipidemia, unspecified; Z89.612 Acquired absence of left leg above knee

== ENCOUNTER 2019-10-27 02:40 | Inpatient (IN) | payer MEDICARE ==
[~2019-10-27] VITALS: Ht 165.1 cm; Wt 69.0 kg
[2019-10-27] VITALS (23 sets, daily range): BP systolic 92–152; BP diastolic 33–97; Ht 165.1 cm; Wt 69.0 kg
--- NOTE | 2019-10-27 01:00 | NUR ---
RECIEVED PT FROM ASSISTED VIA BED ACCOMPANIED BY HOSPITAL STAFF. RESPIRATIONS EVEN AND UNLABORED. VITAL SIGNS STABLE. NO VISUAL CUES OF DISTRESS. DENIES ANY OTHER NEEDS AT THIS TIME. WILL CONTNUE TO MONITOR.
--- NOTE | 2019-10-27 03:45 | NUR ---
COMPLETE CHG BATH AND LINEN CHANGE PROVIDED.
--- NOTE | 2019-10-27 07:15 | NUR ---
REPORT RECEIVED. PT CONFUSED. HX OF LEFT AKA. HAS LEFT AC SALINE LOCK. PT IS RESERVE RIGHT ARM FOR DIALYSIS WHICH HE NORMALLY GETS ON T, TH, AND SAT. HE IS ANURIC. HE IS ON O2 AT 2L. VSS. WILL CONTINUE TO MONITOR.
--- NOTE | 2019-10-27 08:00 | NUR ---
BICARB GIVEN IN LEFT AC IV.
--- NOTE | 2019-10-27 09:10 | NUR ---
DR WATERS ROUNDED ON PT.
[2019-10-27 10:19] LABS: BASOPHILS 0.1 % (0-2); EOSINOPHILS 0 % (0-7); HEMATOCRIT 29.6 % (42.0-54.0); HEMOGLOBIN 9.1 g/dL (13.5-17.5); IMMATURE GRANULOCYTES 0.2 % (0-5); LYMPHOCYTES 4.2 % (15-50); MCH 31.1 pg (26.0-34.0); MCHC 30.7 g/dL (31.0-37.0); MEAN PLATELET VOLUME 10.1 fL (7.4-10.4); MONOCYTES 10.7 % (2-11); NEUTROPHILS 84.8 % (40-80); PLATELET COUNT 111 10x3/uL (130-400); RBC 2.93 10x6/uL (4.20-6.10); RDW 17.3 % (11.5-14.5); WBC 9.2 10x3/uL (4.8-10.8)
--- NOTE | 2019-10-27 11:05 | NUR ---
REASSESSMENT COMPLETED AND CHARTED. DIALYSIS ABOUT TO BEGIN.
[2019-10-27 12:19] LABS: HEMATOCRIT 26.8 % (42.0-54.0); HEMOGLOBIN 8.4 g/dL (13.5-17.5)
[2019-10-27 16:43] LABS: BASOPHILS 0.1 % (0-2); EOSINOPHILS 0.1 % (0-7); HEMATOCRIT 27.2 % (42.0-54.0); HEMOGLOBIN 8.6 g/dL (13.5-17.5); IMMATURE GRANULOCYTES 0.6 % (0-5); LYMPHOCYTES 7.2 % (15-50); MCH 30.7 pg (26.0-34.0); MCHC 31.6 g/dL (31.0-37.0); MEAN PLATELET VOLUME 9.3 fL (7.4-10.4); MONOCYTES 10.4 % (2-11); NEUTROPHILS 81.6 % (40-80); PLATELET COUNT 117 10x3/uL (130-400); WBC 9.4 10x3/uL (4.8-10.8)
[2019-10-27 16:45] LABS: MCV 97.1 fL (80.0-100.0)
--- NOTE | 2019-10-27 19:20 | NUR ---
PT AWAKE BUT DOES NOTANSWER MY QUESTIONS I LOOSENED THE WRIST RESTRAINTS AND DID RANGE OF MOTION PT ATTEMPTED TO GRAB AT IV AND TO TWIST MY ARM RESTRAINTS REAPPLIED. LUNGS WITH SOME CRACKLES
--- NOTE | 2019-10-27 19:40 | NUR ---
PT CALMER NOW BED LOW AND LOCKED AND SR X2 RESTERAINTS RECHECKED FOR COMFORT AND NO CIRCULATION ISSUES
--- NOTE | 2019-10-27 20:34 | NUR ---
ADD TO ASSESSMENT BRUISING TO THE INNER RT LEG FULL LENGTH OF INNER THIGH
[2019-10-27 20:47] LABS: HEMATOCRIT 28.4 % (42.0-54.0); HEMOGLOBIN 8.7 g/dL (13.5-17.5)
--- NOTE | 2019-10-27 20:48 | NUR ---
PT AT REST WITH EYES CLOSED QUICKLY AFTER LAB DRAW
--- NOTE | 2019-10-27 21:43 | NUR ---
PT IS HOLLERING OUT BUT NOTHING SAID IS UNDERSTANDABLE...PT WILL HOLLER THEN APPEAR TO BE ASLEEP. I HAVE DONE RO ON RESTRAINTS AND ATTEMPTED COMFORT MEASURES
--- NOTE | 2019-10-27 22:00 | NUR ---
PT HOLLERED OUT AGAIN BUT WILL NOT ANSWER MY QUESTION I REPOSITIONED IN BEDB RESTRAINTS CHECKED AND PULSES INTACT
--- NOTE | 2019-10-27 22:31 | NUR ---
CONSULTED WITH OTHER NURSES AND HALDOL GIVEN FOR PT'S AGITATION
--- NOTE | 2019-10-27 22:47 | NUR ---
RAQUEL SEEMS TO HAVE WORKED PT RESTING QUIETLY WITH EYES CLOSED
--- NOTE | 2019-10-27 23:23 | NUR ---
AFTER ONE HOUR PT STILL CONTINUES TO HOLLER OUT SOME I CAN NOT DETERMIN IF ITS PAIN OR DELERIUM
--- NOTE | 2019-10-27 23:56 | NUR ---
RESTRAINTS LOOSED AND ROM DONE PT ATTEMPTED TO STRIKE ME RESTERAINTS REAPLIED REMAINS COMPLETELY UNORIENTED
--- NOTE | 2019-10-27 23:59 | NUR ---
CLEANED PT COUGHED UP WHITE SPUTUM THICK
[2019-10-28] VITALS (17 sets, daily range): BP systolic 124–188; BP diastolic 47–95
--- NOTE | 2019-10-28 00:34 | NUR ---
NOTED UP TIC IN BP SIT WITH PT AND ASKED HIM TO KEEP ARM STILL BP 179/78
--- NOTE | 2019-10-28 01:01 | NUR ---
RESTLESS BUT NOT HOLLERING OUT SAFTY CHECK DONR BED LOW AND LOCKED
--- NOTE | 2019-10-28 02:07 | NUR ---
LOOSED RESTRAINTS AND ROM RESTRAINTS REAPLIED BED LOW AND LOCKED
--- NOTE | 2019-10-28 02:38 | NUR ---
I have reviewed this patient and I concur with the Shift Assessment completed by the Licensed Practical Nurse today this shift.
--- NOTE | 2019-10-28 03:06 | NUR ---
I HAVE REPOSISTIONED SEVERAL TIME PT CONT TO PUL HIMSELF DIAGONAL IN BED
--- NOTE | 2019-10-28 04:19 | NUR ---
PT IS NOW MAKING MORE SENSE WITH HIS SPEACH C/O PHANTOM LEG PAINRESTRAINTS ARE IN PLACE ROM DONE AND REPLACED
--- NOTE | 2019-10-28 05:12 | NUR ---
PT ASKS FOR FLUIDS AND I GAVE SMALL SIPS OF WATER TOLERATED WELL
--- NOTE | 2019-10-28 06:24 | NUR ---
ATTEMPTEED TO BATH PT NOT TOLERATED WELL ORAL CARE GIVEN AT THIS TIME I AM ABLE TO BETTER UNDERSTAND PT THIS AM
--- NOTE | 2019-10-28 07:29 | NUR ---
0700 BEDSIDE REPORT FROM OUT GOING NURSE ASSISTED IN COMPLETING CHG BATH INCONTINENT SMALL DARK BROWN STOOL NOTED PULLED UP IN BED AND REPOSITIONED ON HIS RIGHT SIDE
[2019-10-28 08:30] LABS: HEMATOCRIT 27.4 % (42.0-54.0); HEMOGLOBIN 8.3 g/dL (13.5-17.5)
--- NOTE | 2019-10-28 09:38 | NUR ---
Nutrition follow-up: Pt sleeping with O2 canula in place Remains NPO except for some sips of water No BM charted Labs reviewed Wt: 152# Pt communicating better today per nurse Recommend advancing diet to regular as tolerated today RDN following.
--- NOTE | 2019-10-28 09:43 | NUR ---
Nutrition follow-up: Diet advanced to renal per nephrology this morning. Pt is much more alert today per nurse. Pt sleeping at time of RDN visit with O2 nasal canula in place Labs reviewed Wt: 152# no BM charted Will provide food choices with selective menus and honor food prefenrences within diet restrictions. Will offer Nepro nutritional supplement. RDN following.
[2019-10-28 10:01] LABS: BASOPHILS 0.1 % (0-2); EOSINOPHILS 0.1 % (0-7); IMMATURE GRANULOCYTES 0.3 % (0-5); LYMPHOCYTES 5.2 % (15-50); MCH 31.1 pg (26.0-34.0); MCHC 30.9 g/dL (31.0-37.0); MCV 100.7 fL (80.0-100.0); MEAN PLATELET VOLUME 9.5 fL (7.4-10.4); MONOCYTES 12.1 % (2-11); NEUTROPHILS 82.2 % (40-80); PLATELET COUNT 124 10x3/uL (130-400); RBC 2.67 10x6/uL (4.20-6.10); RDW 17.6 % (11.5-14.5); WBC 7.7 10x3/uL (4.8-10.8)
[2019-10-28 10:56] LABS: ANION GAP 18.4 mmol/L (8-16); CALCIUM 9.6 mg/dL (8.5-10.1); CARBON DIOXIDE 23.9 mmol/L (21.0-32.0)
[2019-10-28 10:57] LABS: CREATININE - SERUM 6.9 mg/dL (0.6-1.3); POTASSIUM - SERUM 4.3 mmol/L (3.5-5.1)
--- NOTE | 2019-10-28 15:48 | NUR ---
0900 PULLED UP IN BED AND REPOSITIONED PO MEDS GIVEN WITH WATER TOOK PILLS WITH ASSSIST SWALLOWED WITHOUT ANY DIFFICULTY OR CHOKING
--- NOTE | 2019-10-28 15:50 | NUR ---
1100 DR RAE ROUNDING ON PATIENT NEW ORDERS NOTED
--- NOTE | 2019-10-28 15:51 | NUR ---
1120 PORTABLE CXR COMPLETED
--- NOTE | 2019-10-28 15:52 | NUR ---
1300 RENAL DIET AT BEDSIDE FEED ASSIST X 1 PT REFUSES TO EAT ANY LUNCH
--- NOTE | 2019-10-28 15:53 | NUR ---
1400 PT KICKED RN IN HEAD PLACED 3RD RESTRAINT TO RLU
--- NOTE | 2019-10-28 15:55 | NUR ---
1405 GEODON 10MG IM GIVEN FOR COMBATIVE BEHAVIOR.
--- NOTE | 2019-10-28 16:05 | MORECARE ---
CASE MANAGEMENT DISCHARGE SUMMARY PATIENT: MARC CHADWICK UNIT: [id number] ADM DATE: 10/27/19 AGE: 74 : 47 SEX: M ROOM/BED: D.2303 AUTHOR: RADHA MCGRATH PHYSICIAN: REFERRING PHYSICIAN: YUMIKO RAE MD DATE OF SERVICE: 10/28/19 Discharge Plan Patient Name: MARC CHADWICK Facility: [facility]:[place] : 1945 Planned Disposition: Psych facility Anticipated Discharge Date: Discharge Date: Expected LOS: Initial Reviewer: [email or web address] Initial Review Date: 10/27/2019 Generated: 10/28/19 5:04 pm Comments DCP- Discharge Planning Updated by [email or web address]: Ester Dc on 10/28/19 3:[address] Patient Name: MARC CHADWICK Admission Status: Elective Accout number: [id number] Admission Date: 10-27-2019 : 1945 Admission Diagnosis:GASTROINTESTINAL HEMORRHAGE, UNSPECIFIED Attending: YUMIKO RAE Current LOS: 1 Anticipated DC Date: Planned Disposition: Psych facility Primary Insurance: MEDICARE A & B Discharge Planning Comments: Patient is confused and unable to answer any discharge planning questions. Plan for patient to return to long-term when medically stable. CM will continue to follow and assist as needed with discharge planning / needs. Exhibits Curator: Ester Dc DCPIA - Discharge Planning Initial Assessment Updated by [email or web address]: Ester Dc on 10/28/19 4:00 pm * Is the patient Alert and Oriented? No * How many steps to enter\exit or inside your home? * PCP patient confused Patient Name: MARC CHADWICK Page [phone] at 1605 All edits/amendments must be made on the electronic document DICTATION DATE: 10/28/19 160 WHITE METAL CASTER: JANN 10/28/19 160 RPT#: [id number] DC DATE: STATUS: ADM IN [facility] [address] [place] [address] END OF REPORT
--- NOTE | 2019-10-28 18:05 | NUR ---
1600 CALLED REPORT TO NIC ON DETENTION
--- NOTE | 2019-10-28 18:06 | NUR ---
1730 TRANSFERRED VIA BED TO [facility] UPON DISCHARGE
--- NOTE | 2019-10-31 11:35 | MORECARE ---
CASE MANAGEMENT DISCHARGE SUMMARY PATIENT: MARC CHADWICK UNIT: [id number] ADM DATE: 10/27/19 AGE: 74 : 47 SEX: M ROOM/BED: D.2303 AUTHOR: RADHA MCGRATH PHYSICIAN: REFERRING PHYSICIAN: YUMIKO RAE MD DATE OF SERVICE: 10/31/19 Discharge Plan Patient Name: MARC CHADWICK Facility: [facility]:[place] : 1945 Planned Disposition: Psych facility Anticipated Discharge Date: Discharge Date: 10/28/2019 Expected LOS: Initial Reviewer: [email or web address] Initial Review Date: 10/27/2019 Generated: 10/31/19 12:35 pm Comments DCP- Discharge Planning Updated by [email or web address]: Ester Dc on 10/28/19 3:[address] Patient Name: MARC CHADWICK Admission Status: Elective Accout number: [id number] Admission Date: 10-27-2019 : 1945 Admission Diagnosis:GASTROINTESTINAL HEMORRHAGE, UNSPECIFIED Attending: YUMIKO RAE Current LOS: 1 Anticipated DC Date: Planned Disposition: Psych facility Primary Insurance: MEDICARE A & B Discharge Planning Comments: Patient is confused and unable to answer any discharge planning questions. Plan for [facility] when medically stable. CM will continue to follow and assist as needed with discharge planning / needs. Environmental Technology Professor: Ester Dc DCPIA - Discharge Planning Initial Assessment Updated by [email or web address]: Ester Dc on 10/28/19 4:00 pm * Is the patient Alert and Oriented? No * How many steps to enter\exit or inside your home? * PCP patient confused Last DP export: 10/28/19 3:05 p Patient Name: MARC CHADWICK Page [phone] at 1135 All edits/amendments must be made on the electronic document DICTATION DATE: 10/31/19 1135 FLOOR INSTALLATION MECHANIC: JANN 10/31/19 1135 RPT#: [id number] DC DATE:10/28/19 STATUS: DIS IN [facility] [address] [place] [address] END OF REPORT
--- NOTE | 2019-10-31 15:05 | CN ---
PATIENT NAME:MARC CHADWICK MEDICAL RECORD: [id number] : [birth year] LOCATION:ADAMD.2303 ADMIT DATE: 10/27/19 ACCOUNT: [id number] CONSULTING PHYSICIAN: ALFRED KAUR MD REFERRING PHYSICIAN: YUMIKO RAE MD DATE OF CONSULTATION: 10/27/2019 IDENTIFYING DATA: The patient is 74 years old and he is in the intensive care unit. CHIEF COMPLAINT: Pneumonia. HISTORY OF PRESENT ILLNESS: The patient was recently hospitalized on the behavioral unit secondary to a disruptive confused behavior. He developed pneumonia, was transferred to the intensive care unit. He is currently quite agitated and having some disruptive behaviors. ASSESSMENT: Delirium. PLAN: The patient is not only has a delirium, but an underlying dementia. Once he is medically stabilized, he can be transferred back to the behavioral unit if behavior is still warranted and I anticipate that they will. I am going to order p.r.n. Geodon and Ativan for any disruptive behaviors. TRANSINT:[id number] Voice Confirmation ID: [id number] DOCUMENT ID: [id number] ALFRED KAUR MD at 1505 CC: [id number] DICTATION DATE: 10/27/19 1609 STUDY MANAGER: 10/28/19 0033 DIS IN 10/28/19 [id number] [place] [address]
== END 2019-10-28 18:17 | DRG 377 ==
LOC: D.ICU 02:40
PROVIDERS: Internal Medicine; ADMIT Family Medicine; ATTEND Family Medicine
DX: K92.2 Gastrointestinal hemorrhage, unspecified (principal); N18.6 End stage renal disease; I12.0 Hypertensive chronic kidney disease with stage 5 chronic kidney disease or end stage renal disease; K64.8 Other hemorrhoids; I25.10 Atherosclerotic heart disease of native coronary artery without angina pectoris; K21.9 Gastro-esophageal reflux disease without esophagitis; F03.90 Unspecified dementia, unspecified severity, without behavioral disturbance, psychotic disturbance, mood disturbance, and anxiety; D63.1 Anemia in chronic kidney disease; Z95.0 Presence of cardiac pacemaker; G62.9 Polyneuropathy, unspecified; K59.00 Constipation, unspecified; N40.0 Benign prostatic hyperplasia without lower urinary tract symptoms; F43.10 Post-traumatic stress disorder, unspecified; F32.9 Major depressive disorder, single episode, unspecified; E11.22 Type 2 diabetes mellitus with diabetic chronic kidney disease; E78.5 Hyperlipidemia, unspecified; I69.919 Unspecified symptoms and signs involving cognitive functions following unspecified cerebrovascular disease; F01.50 Vascular dementia, unspecified severity, without behavioral disturbance, psychotic disturbance, mood disturbance, and anxiety

== ENCOUNTER 2019-10-28 19:08 | Inpatient (IN) | payer MEDICARE ==
[2019-10-29 10:50] VITALS: Wt 64.1 kg
[2019-11-03] MEDS ORDERED: NAMENDA5 MG PO (15:03)
[2019-11-04 10:22] VITALS: BP 124/43
== END 2019-11-04 19:20 | DRG 884 ==
LOC: D.PSYCH 19:08
PROVIDERS: ADMIT Psychiatry & Neurology Psychiatry; ATTEND Psychiatry & Neurology Psychiatry
DX: F01.51 Vascular dementia, unspecified severity, with behavioral disturbance (principal); N18.6 End stage renal disease; K62.5 Hemorrhage of anus and rectum; I12.0 Hypertensive chronic kidney disease with stage 5 chronic kidney disease or end stage renal disease; I69.359 Hemiplegia and hemiparesis following cerebral infarction affecting unspecified side; I69.919 Unspecified symptoms and signs involving cognitive functions following unspecified cerebrovascular disease; E11.22 Type 2 diabetes mellitus with diabetic chronic kidney disease; Z99.2 Dependence on renal dialysis; D63.1 Anemia in chronic kidney disease; I25.10 Atherosclerotic heart disease of native coronary artery without angina pectoris; I73.9 Peripheral vascular disease, unspecified; K21.9 Gastro-esophageal reflux disease without esophagitis; K59.00 Constipation, unspecified; N40.0 Benign prostatic hyperplasia without lower urinary tract symptoms; F43.10 Post-traumatic stress disorder, unspecified; F32.9 Major depressive disorder, single episode, unspecified; E78.5 Hyperlipidemia, unspecified; R05 Cough; G62.9 Polyneuropathy, unspecified

== ENCOUNTER 2019-11-05 11:19 | Emergency (ER) | payer MEDICARE ==
[~2019-11-05] VITALS: Ht 175.3 cm; Wt 75.0 kg
[~2019-11-05 11:19] MED LIST changes: +NAMENDA5 MG PO
[2019-11-05 11:21] VITALS: Ht 175.3 cm; Wt 75.0 kg
[2019-11-05 13:17] VITALS: BP 143/59
== END 2019-11-05 13:18 ==
LOC: D.ER 11:19
DX: S09.90XA Unspecified injury of head, initial encounter (principal); W06.XXXA Fall from bed, initial encounter; Y93.9 Activity, unspecified; Y92.9 Unspecified place or not applicable; R11.10 Vomiting, unspecified; Z86.73 Personal history of transient ischemic attack (TIA), and cerebral infarction without residual deficits; F03.90 Unspecified dementia, unspecified severity, without behavioral disturbance, psychotic disturbance, mood disturbance, and anxiety; K21.9 Gastro-esophageal reflux disease without esophagitis; E11.22 Type 2 diabetes mellitus with diabetic chronic kidney disease; I12.0 Hypertensive chronic kidney disease with stage 5 chronic kidney disease or end stage renal disease; N18.6 End stage renal disease; Z99.2 Dependence on renal dialysis; I25.2 Old myocardial infarction

== ENCOUNTER 2019-12-16 20:12 | Emergency (ER) | payer MEDICARE ==
[~2019-12-16] VITALS: Ht 175.3 cm; Wt 72.7 kg
[2019-12-16 20:20] VITALS: Ht 175.3 cm; Wt 72.7 kg
[2019-12-16 22:47] VITALS: BP 135/55
== END 2019-12-16 20:46 | disposition home or self-care (01) ==
LOC: D.ER 20:12
DX: E11.22 Type 2 diabetes mellitus with diabetic chronic kidney disease (principal); I12.0 Hypertensive chronic kidney disease with stage 5 chronic kidney disease or end stage renal disease; N18.6 End stage renal disease; Z99.2 Dependence on renal dialysis; J44.9 Chronic obstructive pulmonary disease, unspecified; K21.9 Gastro-esophageal reflux disease without esophagitis; F03.90 Unspecified dementia, unspecified severity, without behavioral disturbance, psychotic disturbance, mood disturbance, and anxiety

== ENCOUNTER → 2019-12-16 | Emergency (ER) | payer MEDICARE ==
[~2019-12-16] VITALS: Ht 175.3 cm; Wt 77.3 kg
[2019-12-16 15:22] VITALS: Ht 175.3 cm; Wt 77.3 kg
[2019-12-16 16:30] LABS: BASOPHILS 0.2 % (0-2); EOSINOPHILS 4.4 % (0-7); HEMATOCRIT 37.4 % (42.0-54.0); HEMOGLOBIN 11.5 g/dL (13.5-17.5); IMMATURE GRANULOCYTES 0.2 % (0-5); LYMPHOCYTES 20.2 % (15-50); MCH 31.1 pg (26.0-34.0); MCHC 30.7 g/dL (31.0-37.0); MCV 101.1 fL (80.0-100.0); MEAN PLATELET VOLUME 8.8 fL (7.4-10.4); MONOCYTES 8.4 % (2-11); NEUTROPHILS 66.6 % (40-80); PLATELET COUNT 108 10x3/uL (130-400)
[2019-12-16 16:40] VITALS: BP 135/61
[2019-12-16 16:47] LABS: CALC OSMOLALITY 299 mosm/kg (275-300); CALCIUM 8.3 mg/dL (8.5-10.1); CARBON DIOXIDE 29.9 mmol/L (21.0-32.0); CHLORIDE - SERUM 102 mmol/L (98-107); CREATININE - SERUM 9.1 mg/dL (0.6-1.3); POTASSIUM - SERUM 4.6 mmol/L (3.5-5.1); SODIUM 141 mmol/L (136-145); UREA NITROGEN 43 mg/dL (7-18); eGFR NON AFRICAN AMERICAN 6 mL/min (90-120)
[2019-12-16 16:48] LABS: GLUCOSE 241 mg/dL (74-106)
[2019-12-16 16:58] LABS: INR 1.02 (0.85-1.17); PROTIME 13.3 SECONDS (11.6-15.0)
[2019-12-16 17:04] LABS: ALBUMIN 3.1 g/dL (3.4-5.0); ALKALINE PHOSPHATASE 108 U/L (30-120); ALT (SGPT) 24 U/L (10-68); BILIRUBIN - TOTAL 0.45 mg/dL (0.2-1.3); CKMB 1.6 U/L (0.0-3.6); CREATINE KINASE 20 UL (21-232); MAGNESIUM - SERUM 2.1 mg/dL (1.8-2.4); PROTEIN - SERUM 6.4 g/dL (6.4-8.2)
== END ==
LOC: D.ER 15:08
PROVIDERS: Family Medicine
DX: U07.1 COVID-19 (principal); R07.89 Other chest pain; R07.9 Chest pain, unspecified; Z86.73 Personal history of transient ischemic attack (TIA), and cerebral infarction without residual deficits; K21.9 Gastro-esophageal reflux disease without esophagitis; E11.9 Type 2 diabetes mellitus without complications; I10 Essential (primary) hypertension; J44.9 Chronic obstructive pulmonary disease, unspecified

== ENCOUNTER → 2020-01-26 12:58 | Outpatient (CLI) | payer MEDICARE ==
[2019-12-16 20:20] VITALS: BMI 23.6
[~2020-01-26 12:58] MED LIST changes: +BUSPAR10 MG PO; +GUAIFENESI100 MG/5 M; +NORVASC2.5 MG PO; +NYSTATIN OINTME15 GM; +PHENERGAN25 M1
== END | disposition home or self-care (01) ==
LOC: D.CT 12:58
PROVIDERS: ATTEND Internal Medicine
DX: I70.201 Unspecified atherosclerosis of native arteries of extremities, right leg (principal)

== ENCOUNTER 2020-01-28 10:11 | Inpatient (IN) | payer MEDICARE, OTHER ==
[~2020-01-28] VITALS: Ht 175.3 cm; Wt 58.1 kg
--- NOTE | ~2020-01-28 | HEMODYNAMI ---
PATIENT:MARC CHADWICK MEDICAL RECORD: [id number] : [birth year] LOCATION:D. D.2106 ADMISSION DATE: 01/28/20 Generatedon:02/02/202015:02 Patient name: MARC CHADWICK Patient #: [id number] SSN: [id number] : 1945 Date of study: 02/02/2020 Page: Of Hemodynamic Procedure Report Patient Data Patient Demographics Procedure consent was obtained First Name: MARC Gender: Male Last Name: NETTA : 1945 Middle Initial: S Age: 75 year(s) Patient #: [id number] Race: SSN: [id number] Additional ID: [id number] Contact details Address: [address] [place] [address] State: [place] City: [place] Zip code: [address] Past Medical History History of disease Date Diagnosis Comments CAD Peripheral vascular disease->Amputation Renal failure->Dialysis Allergies Allergen Reaction Date Comments Reported Other 10/01/2014 METHADONE allergy Other 04/28/2016 Methadone allergy Other 09/22/2016 Methadone allergy Other 02/23/2018 methadone allergy Other 01/14/2019 methadone allergy Other 02/03/2019 methadone allergy Other 08/04/2019 methadone,amiltryptiline allergy Other 08/18/2019 amitriptyline, methadone allergy Other 10/07/2019 METHADONE, AMITRIPTYLINE allergy Other 02/02/2020 amitriptyline,methadone, allergy Admission Admission Data Admission Date: 01/28/2020 Admission Time: 12:02 Room #: D.2106 Height (in.): 69 BSA: 1.99 (m2) Height (cm.): 175.26 BMI: 27.02 (kg/m2) Weight (lbs.): 183 Weight (kg.): 83.01 Procedure Procedure Types Cath Procedure Peripheral Cath Diagnostic Procedure Dosier Operator Peripheral Procedures Abd/Extremity Extremities Right Lower Ext Arterio Procedure Description Procedure Date Procedure Date: 02/02/2020 Procedure Start Time: 12:58 Procedure Staff Name Function Sergo Olvera MD Performing Physician Olesya Swanson RT Kitchen Chef Gideon Messina MD Additional personnel Bianca Manley RN Nurse Dyllan Izaguirre RT Scrub Procedure Data Cath Procedure Fluoroscopy Diagnostic fluoroscopy Total fluoroscopy Time: time: 31.1 min 31.1 min Diagnostic fluoroscopy Total fluoroscopy dose: 665 dose: 665 mGy mGy Contrast Material Contrast Material Type Amount (ml) Isovue 300 180 Entry Location Entry Primary Successful Side Size Upsize Upsize Entry Closure Succes sful Closure Location (Fr) 1 (Fr) 2 (Fr) Remarks Device Remarks Femoral Left 6 Fr 6 Fr 6 Fr Exoseal artery Short Long Short Diagnostic catheters Device Type Used For End Catheter Placement Merit Impress COBRA 2 5Fr 65CM catheter ([id number]) Procedure Medications Medication Administration Route Dosage Lidocaine 1% added to field 20 Heparin Flush Bag added to field 3 bags (1000units/500ml NS) Refer to Anesthesia Notes for Sedation Medications Heparin Bolus I.V. 5000 units Heparin Bolus I.V. 2000 units Hemodynamics Rest BSA: 1.99 (m2) O2 Consumption: Estimated: 239.95 (ml/min) O2 Consumption indexed : Estimated:120.58 (ml/min/m) Heart Rate: 84 (bpm) Snapshots Pre Cath Intra NCS Post Cath Vital Signs Time Heart Resp SPO2 etCO2 NIBP (mmHg) Rhythm Pain Sedation Rate (ipm) (%) (mmHg) Status Level (bpm) 12:41:12 71 12 100 9.7 Measuring NSR 0 (11) 10(A) , No pain 12:41:37 70 15 100 10.5 185/80(152) NSR 0 (11) 10(A) , No pain 12:45:59 68 8 100 9.7 181/73(140) NSR 0 (11) 10(A) , No pain 12:50:25 64 9 100 0.7 144/62(104) NSR 0 (11) 10(A) , No pain 12:54:39 63 7 100 9 151/56(104) NSR 0 (11) 10(A) , No pain 12:58:55 61 8 99 33 126/57(110) NSR 0 (11) 10(A) , No pain 13:03:05 64 6 95 44.2 114/55(81) NSR 0 (11) 10(A) , No pain 13:07:13 61 9 100 42.7 99/42(68) NSR 0 (11) 10(A) , No pain 13:11:17 60 6 99 44.2 105/41(80) NSR 0 (11) 10(A) , No pain 13:15:23 59 6 100 39.7 97/43(63) NSR 0 (11) 10(A) , No pain 13:19:20 60 6 99 47.2 101/59(94) NSR 0 (11) 10(A) , No pain 13:23:26 61 6 100 46.5 101/33(66) NSR 0 (11) 10(A) , No pain 13:27:32 61 5 99 48 95/41(71) NSR 0 (11) 10(A) , No pain 13:31:36 61 5 99 49.5 79/27(63) NSR 0 (11) 10(A) , No pain 13:35:33 60 4 97 1.5 82/29(60) NSR 0 (11) 10(A) , No pain 13:40:00 73 6 99 18 101/33(68) NSR 0 (11) 10(A) , No pain 13:44:05 70 11 98 16.5 90/27(53) NSR 0 (11) 10(A) , No pain 13:48:07 67 7 99 18 96/29(58) NSR 0 (11) 10(A) , No pain 13:52:11 66 5 98 17.2 84/31(50) NSR 0 (11) 10(A) , No pain 13:56:10 68 6 98 15.7 91/30(65) NSR 0 (11) 10(A) , No pain 14:00:12 69 8 97 16.5 84/32(62) NSR 0 (11) 10(A) , No pain 14:04:12 67 7 100 13.5 94/35(70) NSR 0 (11) 10(A) , No pain 14:08:15 69 6 100 12.7 94/26(74) NSR 0 (11) 10(A) , No pain 14:12:19 65 6 100 12.7 92/28(61) NSR 0 (11) 10(A) , No pain 14:16:21 64 6 100 12.7 90/33(64) NSR 0 (11) 10(A) , No pain 14:20:23 67 6 99 13.5 95/37(65) NSR 0 (11) 10(A) , No pain 14:24:26 65 7 99 12.7 88/31(62) NSR 0 (11) 10(A) , No pain 14:28:28 66 7 99 12 102/31(72) NSR 0 (11) 10(A) , No pain 14:32:34 68 7 99 12.7 101/35(71) NSR 0 (11) 10(A) , No pain 14:36:33 69 9 99 13.5 No Cuff NSR 0 (11) 10(A) , No pain 14:39:13 66 8 98 12 155/135(143) NSR 0 (11) 10(A) , No pain 14:42:18 64 7 100 12 112/31(61) NSR 0 (11) 10(A) , No pain 14:46:23 65 9 99 12 119/52(71) NSR 0 (11) 10(A) , No pain 14:50:23 64 8 99 4.5 No Cuff NSR 0 (11) 10(A) , No pain 14:55:22 66 14 96 13.5 Measuring NSR 0 (11) 10(A) , No pain 14:56:13 67 8 98 5.2 Time NSR 0 (11) 10(A) Exceeded , No pain 14:59:07 100 27.7 No Cuff NSR 0 (11) 10(A) , No pain Medications Time Medication Route Dose Verified Delivered Reason Notes Effe ctiveness by by 12:44:06 Lidocaine 1% added 20ml M Delia Olvera for local to vial MD UP anesthetic field 12:44:22 Heparin Flush added 3 M Delia Olvera used for Bag to bags MD UP procedure (1000units/500ml field NS) 12:44:32 Refer to M J Wade Olvera Anesthesia Notes MD UP for Sedation Medications 13:35:59 Heparin Bolus I.V. 5000 M Delia Olvera Bianca Per units MD Manley RN physician 14:08:09 Heparin Bolus I.V. 2000 M Delia Olvera Bianca Per units MD Vineet RN physician Procedure Log Time Note 12:21:05 Patient Height : 69 inches 12:21:10 Patient Weight : 183 lbs 12:22:35 Time tracking: Regular hours (M-F 7:00 - 5:00) 12:23:19 Use device set IR Diagnostic 12:24:43 GLIDE WIRE ANGLE 260cm (JS7502) opened to sterile field. 12:24:44 TUBING Contrast Injection High Pressure ([id number]) opened to sterile field. 12:24:45 SHEATH 5FR Pauline (VJE225) opened to sterile field. 12:24:46 DUQUE 260 wire (T56352) opened to sterile field. 12:24:47 DOC .035 wire (I04288) opened to sterile field. 12:24:48 Micropuncture VSI 4FR kit opened to sterile field. 12:24:49 Angiodynamics Omniflush 5Fr 65cm ([id number]) opened to sterile field. 12:24:50 Tegaderm 4 x 4 (1626W) opened to sterile field. 12:24:51 Sterile Angiographic Pack opened to sterile field. 12:24:52 Bag Decanter (2002S) opened to sterile field. 12:25:04 - 12:25:13 Plan of Care:Hemodynamics will remain stable., Cardiac rhythm will remain stable., Comfort level will be maintained., Respiratory function will remain adequate., Patient/ family verbilizes understanding of procedure., Procedure tolerated without complication., Recovers from procedure without complications.. 12:25:24 Patient received from Med II to IR Alert and oriented. Tansferred to table in Supine position. 12:25:27 Signed procedure consent form obtained from patient. 12:25:34 H&P Date Dictated: 02/02/2020 Within 30 days and on chart.. 12:25:37 Pre-procedure instructions explained to patient. 12:25:37 Pre-op teaching completed and patient verbalized understanding. 12:25:40 Family unavailable. 12:25:42 Patient NPO since Midnight. 12:: Patient allergic to Other allergyamitriptyline,methadone, :: Is the patient allergic to Iodine/contrast media? No. : ECG and BP/O2 sat monitors applied to patient. :39:24 Vital chart was started 12:39: Baseline sample Acquired. 12:39:28 Full Disclosure recording started 12:39:29 - 12:39:51 Baseline sample Acquired. 12:39:55 - 12:40:02 ----Pre-sedation anethsthesia assessment.----see anesthesia notes for monitoring of patient during procedure 12:40:09 Baseline sample Acquired. 12:40:35 - 12:40:42 Pre procedure: right dorsailis pedis pulse Doppler 12:40:50 Pre procedure: right posterior tibial pulse Doppler 12:40:57 Left groin area was prepped with chlora-prep and draped in sterile fashion 12:40:58 - 12:41:09 5) <15 or on dialysis Very severe, or end stage kidney failure. 12:41:14 Fire Safety Assessment: A--An alcohol-based skin anteseptic being used preoperatively., C--Open oxygen or nitrous oxide is being used. 12:44:06 Lidocaine 1% 20ml vial added to field was administered by Sergo Olvera MD; for local anesthetic; Verbal order read back and verified. 12:44:22 Heparin Flush Bag (1000units/500ml NS) 3 bags added to field was administered by Sergo Olvera MD; used for procedure; Verbal order read back and verified. 12:44:32 Refer to Anesthesia Notes for Sedation Medications was administered by Sergo Olvera MD; ; Verbal order read back and verified. 12:57:52 Physician arrived 12:57:53 --------ALL STOP TIME OUT------ 12:57:54 Final Timeout: patient, procedure, and site verified with staff and physician. All members of the team are in agreement. 12:58:17 Procedure started. 12:58:23 Local anesthetic to left femerol artery with Lidocaine 1% by Sergo Olvera MD.INITIAL ACCESS ONLY 13:13:08 CXI SUPPORT .035 135 CM STR catheter (I43480) opened to sterile field. 13:14:02 TORQUE DEVICE PLASTIC .038 ( TD01) opened to sterile field. 13:15:09 Arterial access obtained using ultrasound guidance. 13:15:13 Angiography was performed. 13:19:14 A Elasticsearch COBRA 2 5Fr 65CM catheter ([id number]) was advanced over the wire and used for . 13:20:14 A 6 Fr Short sheath was inserted into the Left Femoral artery 13:28:42 SHEATH 6FR Destination (RSR01) opened to sterile field. 13:28:50 CHOICE PT Extra Support J 300cm guide wire ([id number]) opened to steril e field. 13:30:14 Sheath upsized to a 6 Fr Long. 13:35:59 Heparin Bolus 5000 units I.V. was administered by Bianca Manley RN; Per physician; Verbal order read back and verified. 13:37:03 Hawkone Medium Atherectomy System (H1-M) opened to sterile field. 13:51:49 CHOICE PT Extra Support J 300cm guide wire ([id number]) opened to steril e field. 13:55:08 ROADRUNNER .035 260 glide wire (W87346) opened to sterile field. 14:01:52 ROADRUNNER .035 260 glide wire (A19417) opened to sterile field. 14:08:09 Heparin Bolus 2000 units I.V. was administered by Bianca Manley RN; Per physician; Verbal order read back and verified. 14:09:53 Inflate balloon Inflation number: 1 A NANOCROSS ELITE 2.5MM-2 MM X 210 X 150 ([id number]) was prepped and advanced across the Undefined1 , then inflated. 14:11:09 INFLATOR BasixTOUCH (GQ7790) opened to sterile field. 14:15:14 Inflate balloon Inflation number: 2 A NANOCROSS ELITE 3.5 X 120 X 150 ([id number]) was prepped and advanced across the Undefined1 , then inflated. 14:23:17 Inflate balloon Inflation number: 1 A IN.PACT Admiral 5 x 40 x 130 DCB Balloon ([id number]) was prepped and advanced across the Undefined2 , then inflated . 14:30:14 Sheath upsized to a 6 Fr Short. 14:30:14 Sheath removed intact; hemostasis achieved with Exoseal to the Left Femoral artery. 14:30:54 EXOSEAL 6Fr (EX600) opened to sterile field. 14:33:08 Procedure ended.(Physican Out) 14:33:46 Fluoroscopy time 31.10 minutes. 14:33:50 Fluoroscopy dose: 665 mGy 14:33:50 Flurop Dose total: 665 14:33:54 Contrast amount:Isovue 300 180ml. 14:34:10 Sharps counted by scrub and verified by R.N. 14:34:14 Post-op/insertion site Left Femoral artery dressed using a 4 x 4 and Tegaderm. 14:34:26 Post procedure instruction explained to patient.Patient verbalizes understanding. 14:34:27 Procedure and supply charges have been captured, reviewed, submitted an d are correct. 15:02:34 Vital chart was stopped Intervention Summary Intervention Notes Time ActionType Lesion and Equipment Used Action# Pressure Duration Attributes 14:09:53 Inflate Undefined1 NANOCROSS ELITE 1 0 00:00 balloon 2.5MM-2 MM X 210 X 150 ([id number]) 14:15:14 Inflate Undefined1 NANOCROSS ELITE 2 0 00:00 balloon 3.5 X 120 X 150 ([id number]) 14:23:17 Inflate Undefined2 IN.PACT Admiral 1 0 00:00 balloon 5 x 40 x 130 DCB Balloon ([id number]) Device Usage Item Name Manufacture Quantity Catalog Number [facility] Minimal Lot# / Charge Number Stock Stock Serial# Code GLIDE WIRE ANGLE Terumo 1 [id number] 906190 667945 995600 5 260cm (HB4389) TUBING Contrast [facility] Medical 1 [id number] 271488 625859 786742 5 Injection High Pressure (DFB222N) SHEATH 5FR Terumo 1 WAK974 056419 462365 667649 5 Pauline (DIL058) DUQUE 260 wire [facility] 1 O15743 325546 98612 658478 5 (Q91643) DOC .035 wire [facility] 1 X85182 156550 956650 5 (T56110) Micropuncture VSI VASCULAR 1 7266V 506632 594402 5 VSI 4FR kit SOLUTIONS Angiodynamics Angiodynamics 1 [id number] 337351 454126 109010 5 Omniflush 5Fr 65cm (16960253) Tegaderm 4 x 4 3M 1 1626W 089477 538210 369698 5 (1626W) Sterile Cardinal 1 [id number] 007040 490050 5 Angiographic Health Pack Bag Decanter Microtek 1 2001S 552943 75318 327321 5 () Medical Inc. CXI SUPPORT .035 Cook [employer] 1 W34848 851865 023883 463958 5 [id number] 135 CM STR catheter (P37714) TORQUE DEVICE [place] 1 TD01 827418 368376 046227 5 PLASTIC .038 ( Scientific TD01) Merit Impress [facility] Medical 1 [id number] 385695 431870 293108 5 COBRA 2 5Fr 65CM catheter ([id number]) SHEATH 6FR Terumo 1 RSR01 680308 00362 424910 5 Destination (RSR01) CHOICE PT Extra [place] 2 [id number] 845832 574670 119386 5 Support J 300cm Scientific guide wire (5238819T4) Hawkone Medium Medtronic 1 H1-M 382722 688690 43 5 Atherectomy System (H1-M) ROADRUNNER .035 [employer] 2 V09954 456682 408831 962972 5 260 glide wire (W17668) NANOCROSS ELITE Medtronic 1 [id number] 585527 327045 1 2.5MM-2 MM X 210 X 150 ([id number]) INFLATOR [facility] 1 IT4120 913183 234357 539562 5 BasixTOUCH (LW6560) NANOCROSS ELITE Medtronic 1 [id number] 737546 79304 040686 1 3.5 X 120 X 150 ([id number]) IN.PACT Admiral Medtronic 1 [id number] 037324 937871 958384 5 5 x 40 x 130 DCB Balloon ([id number]) EXOSEAL 6Fr Cardinal 1 EX600 970300 529925 591787 10 (EX600) Health Signature Audit [place] Stage Time Signature Unsigned Intra-Procedure 02/02/2020 Olesya Swanson 3:02:30 PM RT(R) [facility] [address] [place] [address]
[~2020-01-28 10:11] MED LIST changes: -BUSPAR10 MG PO; -GUAIFENESI100 MG/5 M; -NORVASC2.5 MG PO; -NYSTATIN OINTME15 GM; -PHENERGAN25 M1
[2020-01-28] MEDS ORDERED: GABAPENTIN100 MG PO (10:17)
[2020-01-28] MEDS ORDERED: NEPHRO-VITE RX1 TAB PO (10:18)
[2020-01-28] MEDS ORDERED: PHENERGAN25 M1 (10:19)
[2020-01-28] MEDS ORDERED: GUAIFENESI100 MG/5 M (10:19)
[2020-01-28] MEDS ORDERED: BUSPAR10 MG PO (10:19)
[2020-01-28] MEDS ORDERED: BAYER CHEWABLE81 MG PO (10:20)
[2020-01-28] MEDS ORDERED: NORVASC2.5 MG PO (10:20)
[2020-01-28] MEDS ORDERED: NYSTATIN OINTME15 GM (10:20)
[2020-01-28 10:56] LABS: BILIRUBIN NEGATIVE (NEGATIVE); KETONE NEGATIVE (NEGATIVE); NITRITE NEGATIVE (NEGATIVE); UROBILINOGEN NORMAL (NORMAL)
[2020-01-28 10:57] LABS: BACTERIA FEW /hpf (NONE SEEN)
[2020-01-28 10:58] LABS: APTT 35.9 SECONDS (22.8-39.4); INR 1.08 (0.85-1.17)
[2020-01-28 10:59] LABS: BASOPHILS 0.2 % (0-2); EOSINOPHILS 4.1 % (0-7); HEMATOCRIT 35.2 % (42.0-54.0); HEMOGLOBIN 11.5 g/dL (13.5-17.5); LYMPHOCYTES 16.1 % (15-50); MCH 32.6 pg (26.0-34.0); MCHC 32.7 g/dL (31.0-37.0); MCV 99.7 fL (80.0-100.0); MEAN PLATELET VOLUME 9.8 fL (7.4-10.4); MONOCYTES 12.5 % (2-11); NEUTROPHILS 67.1 % (40-80); PLATELET COUNT 102 10x3/uL (130-400); RBC 3.53 10x6/uL (4.20-6.10); WBC 5.4 10x3/uL (4.8-10.8)
[2020-01-28 11:01] LABS: CALC OSMOLALITY 284 mosm/kg (275-300); CALCIUM 9.2 mg/dL (8.5-10.1); CHLORIDE - SERUM 98 mmol/L (98-107); POTASSIUM - SERUM 4.3 mmol/L (3.5-5.1); SODIUM 137 mmol/L (136-145); UREA NITROGEN 37 mg/dL (7-18); eGFR NON AFRICAN AMERICAN 8 mL/min (90-120)
[2020-01-28 11:02] LABS: GLUCOSE 134 mg/dL (74-106)
[2020-01-28 11:15] LABS: UDS - AMPHET NEGATIVE QUAL (NEGATIVE); UDS - BARB NEGATIVE QUAL (NEGATIVE); UDS - BENZO NEGATIVE QUAL (NEGATIVE); UDS - COCAINE NEGATIVE QUAL (NEGATIVE); UDS - OPIATE NEGATIVE QUAL (NEGATIVE); UDS - PCP NEGATIVE QUAL (NEGATIVE); UDS - THC NEGATIVE QUAL (NEGATIVE)
[2020-01-28 11:26] LABS: ALBUMIN 3.7 g/dL (3.4-5.0); ALKALINE PHOSPHATASE 129 U/L (30-120); ALT (SGPT) 23 U/L (10-68); BILIRUBIN - TOTAL 0.56 mg/dL (0.2-1.3); CKMB 1.4 U/L (0.0-3.6); CREATINE KINASE 33 UL (21-232); MAGNESIUM - SERUM 2.2 mg/dL (1.8-2.4); PROTEIN - SERUM 7.3 g/dL (6.4-8.2); THYROID STIMULATING HORMONE 0.68 uIU/mL (0.36-3.74)
[2020-01-28 11:28] LABS: TROPONIN-I 0.076 ng/mL (0.000-0.060)
[2020-01-28 11:48] VITALS: BP 160/69
[2020-01-28 12:04] VITALS: BP 167/71
[2020-01-28 13:04] VITALS: BP 170/71
--- NOTE | 2020-01-28 14:00 | NUR ---
RECEIVED PT TO ROOM 2105 VIA STRETCHER, PT LETHARGIC BUT AROUSES TO VOICE. RESP EVEN AND NONLABORED ON RA. LT WRIST IV SL. AV FISTULA TO RT UPPER ARM. PT DENIES ANY NEEDS AT THIS TIME. CALL LIGHT IN REACH, BRANDON ALARM ON. BEDSIDE RAILS X2. NAD NOTED, WILL CONTINUE TO MONITOR.
[2020-01-28 14:26] VITALS: BMI 27.1
[2020-01-28 14:53] VITALS: BP 163/62
--- NOTE | 2020-01-28 17:12 | NUR ---
BLOOD SUGAR OF 132, NO COVERAGE NEEDED PER S/S. SET PT UP FOR DINNER. PT ABLE TO FEED SELF. DENIES ANY NEEDS AT THIS TIME.CALL LIGHT IN REACH, NAD NOTED, WILL CONTINUE TO MONITOR.
[2020-01-28 19:17] LABS: CKMB 1.4 U/L (0.0-3.6); CREATINE KINASE 31 UL (21-232)
[2020-01-28 19:21] LABS: TROPONIN-I 0.077 ng/mL (0.000-0.060)
--- NOTE | 2020-01-28 19:29 | NUR ---
RECIEVED UP IN BED WITH EYES CLOSED. AROUSES WITH VERBAL STIMULI. O2@ 2 LITERS PER N/C IN PLACE. RT ARM RESERVED D/T AVF. LT WRIST SL. LT AKA AND LT LEG HAS SORES ON HIS TOES AND ON LOWER LEG. PACEMAKER TO LT CHEST OOSEY ALARM IN PLACE. NO S/S OF DISTRESS OBSERVED.
[2020-01-28 20:00] VITALS: BP 164/104
[2020-01-28 23:21] LABS: CKMB 1.2 U/L (0.0-3.6); CREATINE KINASE 44 UL (21-232); TROPONIN-I 0.065 ng/mL (0.000-0.060)
[2020-01-29 00:01] VITALS: BP 170/63
[2020-01-29 04:00] VITALS: BP 155/64
[2020-01-29 06:03] LABS: BASOPHILS 0 % (0-2); EOSINOPHILS 2.7 % (0-7); HEMOGLOBIN 10.4 g/dL (13.5-17.5); IMMATURE GRANULOCYTES 0.1 % (0-5); MCH 31.7 pg (26.0-34.0); MCHC 31.5 g/dL (31.0-37.0); MCV 100.6 fL (80.0-100.0); MEAN PLATELET VOLUME 9.7 fL (7.4-10.4); NEUTROPHILS 79.2 % (40-80); PLATELET COUNT 111 10x3/uL (130-400); RBC 3.28 10x6/uL (4.20-6.10); RDW 14.9 % (11.5-14.5)
[2020-01-29 06:10] LABS: WBC 7.5 10x3/uL (4.8-10.8)
[2020-01-29 06:41] LABS: CALCIUM 8.9 mg/dL (8.5-10.1); CHLORIDE - SERUM 100 mmol/L (98-107); CKMB 0.8 U/L (0.0-3.6); CREATINE KINASE 24 UL (21-232); CREATININE - SERUM 8.5 mg/dL (0.6-1.3); PHOSPHOROUS 8.2 mg/dL (2.5-4.9); POTASSIUM - SERUM 4.6 mmol/L (3.5-5.1); SODIUM 137 mmol/L (136-145); UREA NITROGEN 45 mg/dL (7-18); eGFR NON AFRICAN AMERICAN 7 mL/min (90-120)
[2020-01-29 06:48] LABS: CALC OSMOLALITY 284 mosm/kg (275-300); GLUCOSE 85 mg/dL (74-106)
--- NOTE | 2020-01-29 09:49 | MORECARE ---
CASE MANAGEMENT DISCHARGE SUMMARY PATIENT: MARC CHADWICK UNIT: [id number] ADM DATE: 01/28/20 AGE: 75 : 47 SEX: M ROOM/BED: D.2106 AUTHOR: RADHA MCGRATH PHYSICIAN: REFERRING PHYSICIAN: MIGUEL GUERRERO MD DATE OF SERVICE: 01/29/20 Discharge Plan Patient Name: MARC CHADWICK [facility] [facility] 1945 Planned Disposition: Anticipated Discharge Date: Discharge Date: Expected LOS: Initial Reviewer: [email or web address] Initial Review Date: 01/28/2020 Generated: 01/29/20 10:49 am Comments DCP- Discharge Planning Updated by [email or web address]: Inna Aviles on 01/29/20 8:[address] CM ATTEMTPED TO CALL EARNEST AT [phone] BUT UNABLE TO REACH BY PHONE, AND UNABLE TO LEAVE MESSAGE. CM WILL CONTINUE TO ASSIST WITH DC PLANNING/NEEDS. INNA AVILES MSN,RN,CM Patient Name: MARC CHADWICK Page [phone] at 0949 All edits/amendments must be made on the electronic document DICTATION DATE: 01/29/20948 EXPERT MEDICAL WRITER: JANN 01/29/20948 RPT#: [id number] DC DATE: STATUS: ADM IN [facility] [address] [place] [address] END OF REPORT
[2020-01-29 12:00] VITALS: BP 141/53
[2020-01-29 12:52] LABS: VANCOMYCIN - RANDOM 0.1 ug/mL (10.0-20.0)
[2020-01-29 16:00] VITALS: BP 154/61
--- NOTE | 2020-01-29 19:22 | NUR ---
RECIEVED UP IN BED WITH EYES OPEN. ALERT AND ORIENTED. DOES NOT REMEMBER BEING HERE LAST NIGHT. [facility] REORIENTED. O2@ 2 LITERS PER NC. IV TO LT HAND SL. LEFT AKA AND HAS SORES ON THE RIGHT LEG AND FOOT. HE IS BURNS PAIUTE AND HAS PACEMAKER TO LT CHEST. DOES NOT HAVE AND TEETH AND REPORTED DIFFICULTY CHEWING HIS FOOD. DENIES ANY OTHER NEEDS.
[2020-01-29 20:00] VITALS: BP 119/46
[2020-01-30] VITALS: BP 123/51
[2020-01-30 04:00] VITALS: BP 134/63
[2020-01-30 06:41] LABS: BASOPHILS 0.2 % (0-2); HEMATOCRIT 32.1 % (42.0-54.0); IMMATURE GRANULOCYTES 1.3 % (0-5); LYMPHOCYTES 18.8 % (15-50); MCH 31.6 pg (26.0-34.0); MCHC 31.2 g/dL (31.0-37.0); MCV 101.6 fL (80.0-100.0); MEAN PLATELET VOLUME 9.9 fL (7.4-10.4); MONOCYTES 11.6 % (2-11); NEUTROPHILS 63.1 % (40-80); PLATELET COUNT 94 10x3/uL (130-400); RBC 3.16 10x6/uL (4.20-6.10); RDW 15.1 % (11.5-14.5)
[2020-01-30 06:57] LABS: ANION GAP 18.4 mmol/L (8-16); CALCIUM 8.6 mg/dL (8.5-10.1); CARBON DIOXIDE 25.2 mmol/L (21.0-32.0); CREATININE - SERUM 10.5 mg/dL (0.6-1.3); POTASSIUM - SERUM 4.6 mmol/L (3.5-5.1)
[2020-01-30 06:58] LABS: PHOSPHOROUS 9.7 mg/dL (2.5-4.9)
[2020-01-30 07:08] LABS: WBC 4.6 10x3/uL (4.8-10.8)
[2020-01-30 10:04] LABS: PLATELET ESTIMATE DECREASED
[2020-01-30 10:06] LABS: ANISOCYTOSIS OCC; ROULEAUX OCC
[2020-01-30 11:18] VITALS: Ht 175.3 cm; Wt 58.1 kg
[2020-01-30 13:23] VITALS: BP 143/53
--- NOTE | 2020-01-30 14:00 | NUR ---
PT CALL THE POLICE TWICE BECAUSE HE COULD NOT FIND HIS WALLET AND CELL PHONE. THESE ITEMS WERE EVENTUALLY FOUND IN THE PT'S BEDSIDE TABLE.
[2020-01-30 17:05] VITALS: BP 125/57
--- NOTE | 2020-01-30 19:00 | NUR ---
BED LOW AND LOCKJED CALL LIGHT IN REACH PT DENIES NEEDS AT THIS TIME
--- NOTE | 2020-01-30 21:27 | NUR ---
SET UP PATIENT TO SHAVE AND OTHER NEEDS SEEN TO
[2020-01-30 21:40] VITALS: BP 137/58
[2020-01-31] VITALS: BP 144/53
[2020-01-31 04:00] VITALS: BP 144/61
[2020-01-31 08:00] VITALS: BP 142/55
[2020-01-31 08:09] LABS: ANION GAP 22.9 mmol/L (8-16); CALCIUM 8.1 mg/dL (8.5-10.1); CARBON DIOXIDE 21.8 mmol/L (21.0-32.0); CREATININE - SERUM 11.8 mg/dL (0.6-1.3); POTASSIUM - SERUM 4.7 mmol/L (3.5-5.1)
[2020-01-31 08:24] LABS: BASOPHILS 0.2 % (0-2); EOSINOPHILS 3.7 % (0-7); HEMOGLOBIN 10.6 g/dL (13.5-17.5); IMMATURE GRANULOCYTES 0.2 % (0-5); LYMPHOCYTES 11.8 % (15-50); MCHC 32.1 g/dL (31.0-37.0); MCV 99.7 fL (80.0-100.0); MEAN PLATELET VOLUME 10.2 fL (7.4-10.4); MONOCYTES 8.7 % (2-11); NEUTROPHILS 75.4 % (40-80); RBC 3.31 10x6/uL (4.20-6.10); WBC 5.4 10x3/uL (4.8-10.8)
[2020-01-31 08:25] LABS: PLATELET COUNT 118 10x3/uL (130-400)
[2020-01-31 08:51] LABS: PHOSPHOROUS 10.8 mg/dL (2.5-4.9)
--- NOTE | 2020-01-31 10:27 | MORECARE ---
CASE MANAGEMENT DISCHARGE SUMMARY PATIENT: MARC CHADWICK UNIT: [id number] ADM DATE: 01/28/20 AGE: 75 : 47 SEX: M ROOM/BED: D.2106 AUTHOR: RADHA MCGRATH PHYSICIAN: REFERRING PHYSICIAN: MIGUEL GUERRERO MD DATE OF SERVICE: 01/31/20 Discharge Plan Patient Name: MARC CHADWICK [facility] [facility] 1945 Planned Disposition: Anticipated Discharge Date: Discharge Date: Expected LOS: Initial Reviewer: [email or web address] Initial Review Date: 01/28/2020 Generated: 01/31/20 11:26 am DCP- Discharge Planning Updated by [email or web address]: Inna Aviles on 01/29/20 8:[address] CM ATTEMTPED TO CALL EARNEST AT [phone] BUT UNABLE TO REACH BY PHONE, AND UNABLE TO LEAVE MESSAGE. CM WILL CONTINUE TO ASSIST WITH DC PLANNING/NEEDS. INNA AVILES MSN,RN,CM External Providers External Provider: OTHER-OTHER Next Contact Date: Service Request Date: Service Type: Resolution: Reviewer: Comments: Last DP export: 01/29/20 8:49 a Patient Name: MARC CHADWICK Page [phone] at 1027 All edits/amendments must be made on the electronic document DICTATION DATE: 01/31/20 1026 ONLINE JOURNALIST: JANN 01/31/20 1026 RPT#: [id number] DC DATE: STATUS: ADM IN [facility] [address] [place] [address] END OF REPORT
[2020-01-31 12:03] VITALS: BP 142/66
--- NOTE | 2020-01-31 12:30 | NUR ---
PT TO DIALYSIS VIA BED.
--- NOTE | 2020-01-31 17:30 | NUR ---
PT ARRIVED BACK FROM DIALYSIS AND REFUSED TO HAVE HIS VITALS CHECKED. PT WAS ASKING FOR HIS GUITAR AND WANTED TO GO TO HIS ROOM. PT WAS ALREADY IN HIS ROOM. EVEN AFTER SHOWIN PT HIS CELL PHONE AND WALLET WHICH WERE IN HIS BEDSIDE TABLE, HE CONTINUED TO INSIST THAT HE WAS NOT IN HIS ROOM. PT HAS REFUSED TO HAVE HIS BLOOD SUGAR CHECKED AND TO TAKE ANY OF HIS MEDICATIONS. PT ALSO REFUSED ANOTHER ATTEMPT TO RESTART HIS IV. WHILE RN WAS IN ANOTHER PATIENT'S ROOM, THIS PT PUSHED OVER HIS BEDSIDE TABLE ONTO THE FLOOR.
[2020-01-31 20:00] VITALS: BP 156/57
--- NOTE | 2020-01-31 22:38 | NUR ---
PATIENT REFUSES TO LET NURSES PUT TELEMETRY ON HIM. TURNED THE MONITOR BACK INTO [employer].
[2020-02-01 04:00] VITALS: BP 159/68
[2020-02-01 06:12] LABS: BASOPHILS 0.2 % (0-2); EOSINOPHILS 7.1 % (0-7); HEMATOCRIT 31.6 % (42.0-54.0); HEMOGLOBIN 10.1 g/dL (13.5-17.5); LYMPHOCYTES 16.7 % (15-50); MCH 32.4 pg (26.0-34.0); MCV 101.3 fL (80.0-100.0); MEAN PLATELET VOLUME 9.6 fL (7.4-10.4); MONOCYTES 14.4 % (2-11); NEUTROPHILS 61.6 % (40-80); PLATELET COUNT 120 10x3/uL (130-400); RBC 3.12 10x6/uL (4.20-6.10); RDW 15.1 % (11.5-14.5); WBC 4.4 10x3/uL (4.8-10.8)
[2020-02-01 06:40] LABS: ANION GAP 17.9 mmol/L (8-16); CALCIUM 9.1 mg/dL (8.5-10.1); POTASSIUM - SERUM 4.3 mmol/L (3.5-5.1)
[2020-02-01 06:41] LABS: CARBON DIOXIDE 27.4 mmol/L (21.0-32.0); PHOSPHOROUS 7.8 mg/dL (2.5-4.9)
--- NOTE | 2020-02-01 07:20 | NUR ---
RECEIVE SHIFT REPORT. RESTING IN BED WITH EYES CLOSED. UPSIDE DOWN IN BED. NO SIGNS OF DISTRESS. WILL CONTINUE PLAN OF CARE AND SAFETY PRECAUTIONS.
[2020-02-01 10:36] VITALS: BP 192/78
--- NOTE | 2020-02-01 13:24 | NUR ---
OT NOTE: PT COMPLETED EOB SITTING WHILE SELF FEEDING WITH SETUP. PT COMPLETED SUPINE TO SIT WITH CGA/MIN. PT COMPLETED UE AROM TOLERATED WITHIN AVAILABLE ROM. [phone] THANK YOU,ALESSANDRA HARRELL
--- NOTE | 2020-02-01 13:31 | NUR ---
Nutrition Follow-up: Pt remains confused; noted connie psych eval pending. Nursing reports pt ate 100% of breakfast this AM. ST following; noted diet consistency changed to puree. Diet: Renal ADA, Puree PO intake: 25-100% Wt: 183.1# (01/29) Labs noted: K+ 4.3, Glu 80, PO4 7.8 Meds noted: Renvela, Humalog, Protonix, electrolyte protocol -Encourage PO intake and honor food preferences within diet restrictions. -Monitor wt; noted daily wts ordered.
[2020-02-01 16:00] VITALS: BP 142/52
--- NOTE | 2020-02-01 19:39 | NUR ---
REPORT RECIEVED AND ROUNDING COMPLETE. PATIENT IS LAYING IN BED CONCERNED ABOUT WHY THE [facility] HAVE NOT GONE OFF YET, REORIENTED TO [place] AND THAT HE IS CURRENTLY IN THE HOSPITAL. PATIENT THEN ASKS ABOUT WHEN HE IS GOING TO BE CUT ON, INFORMED THE PATIENT ABOUT WHAT HIS PLAN OF CARE INVOLVES. PATIENT THEN UPSET THAT HE HAS TO STAY ANOTHER NIGHT. NO DISTRESS NOTED, PATINET STATES I AM NOT TO PLACE AN IV. CALL LIGHT WITHIN REACH AND BED IN LOWEST LOCKED POSITION.
[2020-02-01 20:00] VITALS: BP 180/82
[2020-02-02] VITALS: BP 160/66
[2020-02-02 06:21] LABS: APTT 44.6 SECONDS (22.8-39.4); INR 1.26 (0.85-1.17); PROTIME 15.7 SECONDS (11.6-15.0)
[2020-02-02 06:34] LABS: HEMATOCRIT 29.1 % (42.0-54.0); HEMOGLOBIN 9.3 g/dL (13.5-17.5); LYMPHOCYTES 16.3 % (15-50); MCH 32.3 pg (26.0-34.0); MEAN PLATELET VOLUME 9.5 fL (7.4-10.4); NEUTROPHILS 69.3 % (40-80); PLATELET COUNT 109 10x3/uL (130-400); RBC 2.88 10x6/uL (4.20-6.10); RDW 14.2 % (11.5-14.5)
[2020-02-02 06:44] LABS: ANION GAP 18.1 mmol/L (8-16); CALCIUM 8.7 mg/dL (8.5-10.1); CARBON DIOXIDE 26.3 mmol/L (21.0-32.0); POTASSIUM - SERUM 4.4 mmol/L (3.5-5.1)
[2020-02-02 06:56] LABS: CREATININE - SERUM 10.1 mg/dL (0.6-1.3)
--- NOTE | 2020-02-02 07:09 | NUR ---
PATIENT REFUSES TO LET NURSES GIVE CHG BATH OR TO PREP GROIN FOR PROCEEDURE TODAY. DAY SHIFT NURSE NOTIFIED. PATIENT ALSO IS VERY CONFUSED AND DOESNT REMEMBER THAT HE IS SUPPOSED TO HAVE ANYTHING DONE.
--- NOTE | 2020-02-02 07:23 | NUR ---
WALKING ROUNDS COMPLETE, PT RESTING IN BED WITH EYES CLOSED, NO NEEDS OR PAIN NOTED, WILL MONITOR
--- NOTE | 2020-02-02 08:55 | NUR ---
PT IS NPO FOR PROCEDURE TODAY, HELD ALL AM MEDS, PT RESTING WITH EYES CLOSED, BED ALARM IN USE, SR UP X2, WILL MONITOR
[2020-02-02 09:32] VITALS: BP 149/56
--- NOTE | 2020-02-02 10:18 | CN ---
PATIENT NAME:MARC CHADWICK MEDICAL RECORD: [id number] : 49 LOCATION:. D.2106 ADMIT DATE: 01/28/20 ACCOUNT: [id number] CONSULTING PHYSICIAN: ALFRED KAUR MD REFERRING PHYSICIAN: MIGUEL GUERRERO MD DATE OF CONSULTATION: 02/01/2020 IDENTIFYING DATA: The patient is 75 years old and he was admitted to the hospital secondary to mental status changes and a urinary tract infection. CHIEF COMPLAINT: Confusion and agitation. HISTORY OF PRESENT ILLNESS: The patient is cooperative, but hard of hearing and irritable. He does answer questions, but he clearly has cognitive impairment that is significant. He denies that he would want to hurt himself or others. He denies psychotic symptoms. He also denies that he has been agitated, which is not true. He has some significant underlying medical problems right now and is receiving narcotics for pain control. They are likely contributing to his cognitive impairment and apparently he has a preexisting diagnosis of dementia as evidenced by the medications that he is or was on prior to admission. The patient has some acute medical needs. At this point, he is not homicidal or suicidal. I will prescribe scheduled and p.r.n. medications to address his behavior and we will reassess the situation with regard to transfer to the behavioral unit once he is stabilized and cleared medically. At this point, he says he does not want to go to the behavioral unit, but he may need to over those objections depending on circumstances. TRANSINT:[id number] Voice Confirmation ID: [id number] DOCUMENT ID: [id number] ALFRED KAUR MD at 1018 CC: [id number] DICTATION DATE: 02/01/20 1525 RECREATIONAL THERAPIST: 02/01/20 1555 ADM IN [facility] [address] [place] [address]
--- NOTE | 2020-02-02 10:23 | NUR ---
TOOK PT DOWN TO DIALYSIS VIA BED AND TWO STAFF, TOOK CHART AND BLODD PRESSURE CUFF, NO OTHER NEEDS VOICED, WILL MONITOR FOR RETURN
--- NOTE | 2020-02-02 13:00 | NUR ---
PT BACK TO ROOM, PT HAS A DRESSING TO LEFT GROIN, SMALL AMOUNT OF DRAINAGE NOTED TO SITE, O2 IN USE PER NC, RESP EVEN AND UNLABORED, PT SHOWS NO S/S OF PAIN OR NEEDS AT THIS TIME, VITAL SIGNS STABLE, BED LOW AND LOCKED, BED ALARM IN USE, CALL LIGHT IN REACH, WILL MONITOR
[2020-02-02 18:10] VITALS: BP 156/37
[2020-02-02 20:00] VITALS: BP 134/68
[2020-02-03] VITALS: BP 152/53
[2020-02-03 10:01] VITALS: BP 172/63
--- NOTE | 2020-02-03 11:33 | NUR ---
Nutrition Follow-up: Observed >50% of breakfast tray eaten this AM, but 0% x 3 meals recorded for yesterday. HD yesterday. Diet: Renal ADA, Puree Wt: 183.1# (01/29) Labs noted (02/01): K+ 4.4, PO4 10.0; Glu 165 (02/02) Meds noted: Renvela, Humalog, Protonix, electrolyte protocol -Encourage PO intake and honor food preferences within diet restrictions. -+Nepro with meals. -Need new wt; noted daily wts ordered. -RD following.
[2020-02-03 13:38] VITALS: BP 132/45
--- NOTE | 2020-02-03 15:44 | MORECARE ---
CASE MANAGEMENT DISCHARGE SUMMARY PATIENT: MARC CHADWICK UNIT: [id number] ADM DATE: 01/28/20 AGE: 75 : 47 SEX: M ROOM/BED: D.2106 AUTHOR: RADHA MCGRATH PHYSICIAN: REFERRING PHYSICIAN: MIGUEL GUERRERO MD DATE OF SERVICE: 02/03/20 Discharge Plan Patient Name: MARC CHADWICK Facility: [facility]:[place] : 1945 Planned Disposition: Anticipated Discharge Date: Discharge Date: Expected LOS: Initial Reviewer: [email or web address] Initial Review Date: 01/28/2020 Generated: 02/03/20 4:44 pm DCP- Discharge Planning Updated by [email or web address]: Inna Aviles on 01/29/20 8:[address] CM ATTEMTPED TO CALL [facility] AT [phone] BUT UNABLE TO REACH BY PHONE, AND UNABLE TO LEAVE MESSAGE. CM WILL CONTINUE TO ASSIST WITH DC PLANNING/NEEDS. INNA AVILES MSN,RN,CM Last DP export: 01/31/20 9:27 am Patient Name: MARC CHADWICK Page [id number] at 1544 All edits/amendments must be made on the electronic document DICTATION DATE: 02/03/20 154 CARD DEALER: JANN 02/03/20 1544 RPT#: [id number] DC DATE: STATUS: ADM IN [facility] [address] [place] [address] END OF REPORT
--- NOTE | 2020-02-03 15:53 | MORECARE ---
CASE MANAGEMENT DISCHARGE SUMMARY PATIENT: MARC CHADWICK UNIT: [id number] ADM DATE: 01/28/20 AGE: 75 : 47 SEX: M ROOM/BED: D.2106 AUTHOR: ALCIDES,DOC PHYSICIAN: REFERRING PHYSICIAN: MIGUEL GUERRERO MD DATE OF SERVICE: 02/03/20 Discharge Plan Patient Name: MARC CHADWICK Facility: [facility]:[place] : 1945 Planned Disposition: Anticipated Discharge Date: Discharge Date: Expected LOS: Initial Reviewer: [email or web address] Initial Review Date: 01/28/2020 Generated: 02/03/20 4:52 pm Comments DCP- Discharge Planning Updated by [email or web address]: Isaías Webb on 02/03/20 2:[address] Patient Name: MARC CHADWICK Admission Status: ER Accout number: [id number] Admission Date: 01-28-2020 : 1945 Admission Diagnosis:ALTERED MENTAL STATUS, UNSPECIFIED Attending: MIGUEL GUERRERO Current LOS: 6 Anticipated DC Date: Planned Disposition: Primary Insurance: MEDICARE A & B Discharge Planning Comments: CM met with patient to complete initial dc planning assessment. CM educated patient on the CM role and verbal consent given by patient to complete assessment. CM verified patient's address, phone number, and emergency contact phone numbers. Patient lives at home with his roommate Ever Richmond ([phone]). Patient plans to discharge to a detention facility as his home is not a safe discharge option. DERRICK signed for [place], [place], and [place]. CM discussed availability of home health, rehab services, and medical equipment. Patient declined HH, rehab services, and DME. Discussions with the patient's roommates and brother revealed the following: (1) Ever Richmond (roommate - [phone]) - Stated that he cannot physically take care of the patient because his hips are "bad". Mr. Richmond stated that he will possibly have hip surgery on 24 February 2020 and further stated that he is legally blind. Mr. Richmond stated that he wants the patient to come home but it is not feasible at this time due to his inability to provide adequate skilled care. Mr. Richmond stated that a mutual friend, Mallika Richter ([phone]) did help out with medications and transfers and house chores but that her living situation within the household is not certain; (2) Mallika Richter stated that she cannot take care of both men and was only at the home on a temporary basis. She further expressed urgency in the patient contacting his brother, Rafi Chadwick ([phone] for clarification of power of district attorney; and (3) Rafi Chadwick (brother) - stated that he strongly feels that detention facility would be appropriate and stated that he has medical power district attorney. Mr. Rafi Chadwick feels that [facility] may be a more appropriate choice for SNF. Mr. Rafi Chadwick further stated that he would like to be informed either via email [email or web address]) or voicemail the outcome of SNF choice. Transportation provider at discharge will be from accepting SNF. CM will continue to follow and will assist as needed with dc plans/needs. Chest Pain Coordinator: Isaías Webb DCP- Discharge Planning Updated by [email or web address]: Inna Aviles on 01/29/20 8:[address] CM ATTEMTPED TO CALL [facility] AT [phone] BUT UNABLE TO REACH BY PHONE, AND UNABLE TO LEAVE MESSAGE. CM WILL CONTINUE TO ASSIST WITH DC PLANNING/NEEDS. INNA AVILES MSN,RN,CM DCPIA - Discharge Planning Initial Assessment Updated by [email or web address]: Isaías Webb on 02/03/20 3:50 pm * Is the patient Alert and Oriented? Yes * How many steps to enter\\exit or inside your home? RAMP * PCP SUPRIYA YO * Pharmacy [facility] on [facility] * Preadmission Environment Home with Family * ADLs Partial Dependent * Partial ADLs (Assistance needed) Ambulation Dressing Medication Management Transfers * Equipment Crutch Glucometer Walker Wheelchair * Other Equipment Electronic wheelchair as well * List name and contact numbers for known caregivers / representatives who currently or will assist patient after discharge: Rafi Chadwick (brother) - [phone] Ari Cassidy (friend) - [phone] Mallika Richter (friend) - [phone] Ever Richmond (roommate) - [phone] * Verbal permission to speak to the caregivers and representatives has been obtained from the patient. Yes * Community resources currently utilized None * Additional services required to return to the preadmission environment? Yes * Can the patient safely return to the preadmission environment? No * Has this patient been hospitalized within the prior 30 days at any hospital? No Last DP export: 02/03/20 2:44 pm Patient Name: MARC CHADWICK Page [id number] at 1553 All edits/amendments must be made on the electronic document DICTATION DATE: 02/03/20 155 POINT OF CARE TECHNICIAN: JANN 02/03/201551 RPT#: [id number] DC DATE: STATUS: ADM IN [facility] [address] [place] [address] END OF REPORT
--- NOTE | 2020-02-03 16:01 | MORECARE ---
CASE MANAGEMENT DISCHARGE SUMMARY PATIENT: MARC CHADWICK UNIT: [id number] ADM DATE: 01/28/20 AGE: 75 : 47 SEX: M ROOM/BED: D.2106 AUTHOR: ALCIDES,DOC PHYSICIAN: REFERRING PHYSICIAN: MIGUEL GUERRERO MD DATE OF SERVICE: 02/03/20 Discharge Plan Patient Name: MARC CHADWICK Facility: [facility]:[place] : 1945 Planned Disposition: Anticipated Discharge Date: Discharge Date: Expected LOS: Initial Reviewer: [email or web address] Initial Review Date: 01/28/2020 Generated: 02/03/20 5:01 pm Comments DCP- Discharge Planning Updated by [email or web address]: Isaías Webb on 02/03/20 2:[address] Patient Name: MARC CHADWICK Admission Status: ER Accout number: [id number] Admission Date: 01-28-2020 : 1945 Admission Diagnosis:ALTERED MENTAL STATUS, UNSPECIFIED Attending: MIGUEL GUERRERO Current LOS: 6 Anticipated DC Date: Planned Disposition: Primary Insurance: MEDICARE A & B Discharge Planning Comments: CM met with patient to complete initial dc planning assessment. CM educated patient on the CM role and verbal consent given by patient to complete assessment. CM verified patient's address, phone number, and emergency contact phone numbers. Patient lives at home with his roommate Ever Richmond ([phone]). Patient plans to discharge to a prison facility as his home is not a safe discharge option. DERRICK signed for [place], [place], and [place]. CM discussed availability of home health, rehab services, and medical equipment. Patient declined HH, rehab services, and DME. Discussions with the patient's roommates and brother revealed the following: (1) Ever Richmond (roommate - [phone]) - Stated that he cannot physically take care of the patient because his hips are "bad". Mr. Richmond stated that he will possibly have hip surgery on 24 February 2020 and further stated that he is legally blind. Mr. Richmond stated that he wants the patient to come home but it is not feasible at this time due to his inability to provide adequate skilled care. Mr. Richmond stated that a mutual friend, Mallika Richter ([phone]) did help out with medications and transfers and house chores but that her living situation within the household is not certain; (2) Mallika Richter stated that she cannot take care of both men and was only at the home on a temporary basis. She further expressed urgency in the patient contacting his brother, Rafi Chadwick [phone] for clarification of power of disability attorney; and (3) Rafi Chadwick (brother) - stated that he strongly feels that prison facility would be appropriate and stated that he has medical power disability attorney. Mr. Rafi Chadwick feels that [facility] may be a more appropriate choice for SNF. Mr. Rafi Chadwick further stated that he would like to be informed either via email [email or web address]) or voicemail the outcome of SNF choice. Transportation provider at discharge will be from accepting SNF. CM will continue to follow and will assist as needed with dc plans/needs. Material Control Supervisor: Isaías Webb DCP- Discharge Planning Updated by [email or web address]: Inna Aviles on 01/29/20 8:[address] CM ATTEMTPED TO CALL [facility] AT [phone] BUT UNABLE TO REACH BY PHONE, AND UNABLE TO LEAVE MESSAGE. CM WILL CONTINUE TO ASSIST WITH DC PLANNING/NEEDS. INNA AVILES MSN,RN,CM DCPIA - Discharge Planning Initial Assessment Updated by [email or web address]: Isaías Webb on 02/03/20 3:50 pm * Is the patient Alert and Oriented? Yes * How many steps to enter\\exit or inside your home? RAMP * PCP SUPRIYA YO * Pharmacy [facility] * Preadmission Environment Home with Family * ADLs Partial Dependent * Partial ADLs (Assistance needed) Ambulation Dressing Medication Management Transfers * Equipment Crutch Glucometer Walker Wheelchair * Other Equipment Electronic wheelchair as well * List name and contact numbers for known caregivers / representatives who currently or will assist patient after discharge: Rafi Chadwick (brother) - [phone] Ari Cassidy (friend) - [phone] Mallika Richter (friend) - [phone] Ever Richmond (roommate) - [phone] * Verbal permission to speak to the caregivers and representatives has been obtained from the patient. Yes * Community resources currently utilized None * Additional services required to return to the preadmission environment? Yes * Can the patient safely return to the preadmission environment? No * Has this patient been hospitalized within the prior 30 days at any hospital? No Last DP export: 02/03/20 2:53 pm Patient Name: MARC CHADWICK Page [id number] at 1601 All edits/amendments must be made on the electronic document DICTATION DATE: 02/03/20 1601 AIRPLANE PILOT COMMERCIAL: JANN 02/03/20 1601 RPT#: [id number] DC DATE: STATUS: ADM IN [facility] [address] [place] [address] END OF REPORT
[2020-02-03 22:30] VITALS: BP 122/31
[2020-02-04 00:32] VITALS: BP 148/52
[2020-02-04 05:39] LABS: BASOPHILS 0.2 % (0-2); HEMATOCRIT 28.8 % (42.0-54.0); LYMPHOCYTES 14.3 % (15-50); MCH 31.5 pg (26.0-34.0); MCHC 31.3 g/dL (31.0-37.0); MCV 100.7 fL (80.0-100.0); MEAN PLATELET VOLUME 9.5 fL (7.4-10.4); MONOCYTES 15.4 % (2-11); NEUTROPHILS 64.1 % (40-80); PLATELET COUNT 104 10x3/uL (130-400); RBC 2.86 10x6/uL (4.20-6.10); RDW 14.7 % (11.5-14.5); WBC 4.7 10x3/uL (4.8-10.8)
[2020-02-04 05:59] LABS: ANION GAP 20.3 mmol/L (8-16); CALCIUM 9.1 mg/dL (8.5-10.1); CARBON DIOXIDE 24.4 mmol/L (21.0-32.0); CREATININE - SERUM 11.4 mg/dL (0.6-1.3); POTASSIUM - SERUM 4.7 mmol/L (3.5-5.1)
--- NOTE | 2020-02-04 08:00 | NUR ---
PT LAYING SUPINE, RR EVEN AND UNLABORED. DENIES NEEDS OR PAIN AT THIS TIME. WAS UNABLE TO HEAR A PULSE WITH THE DOPPLER TO RIGHT FOOT. HOWEVER, WAS ABLE TO HEAR A POPLITEAL PULSE. PT IS CONFUSED, ORIENTED TO SELF ONLY. REPORTED TO RENAL AND PRIMARY HEAD BANQUET WAITRESS. THEY ARE ALREADY AWARE. BED IN LOWEST POSITION. WILL CONTINUE TO MONITOR.
--- NOTE | 2020-02-04 15:20 | NUR ---
WENT TO DO CDS / PT REFUSED / REFUSED TO LIE DOWN / SHIELA, RN AND COURT MANAGER CAME IN TO HELP. HE WAS GIVEN MEDICATION. STILL REFUSED TO COOPERATE. PT WOULD HAVE TO BE STILL TO DO THIS STUDY. CANCELLED FOR NOW. ADELFO NUNES WILL TRY TO CONTACT DR PHILLIPS.
--- NOTE | 2020-02-04 17:06 | NUR ---
I have reviewed this patient and I concur with the Shift Assessment completed by the Licensed Practical Nurse today this shift.
--- NOTE | 2020-02-04 19:44 | NUR ---
PT LEFT FOR PROCEDURE
--- NOTE | 2020-02-04 21:52 | NUR ---
PT RETURNED TO ROOM FROM PROCEDURE.
--- NOTE | 2020-02-04 22:24 | NUR ---
ADMINISTERED ATIVAN FOR EXTREME AGGITATION.
[2020-02-05 00:24] VITALS: BP 179/67
[2020-02-05 04:45] VITALS: BP 187/83
[2020-02-05 05:07] LABS: BASOPHILS 0.1 % (0-2); EOSINOPHILS 0.1 % (0-7); HEMOGLOBIN 9.1 g/dL (13.5-17.5); IMMATURE GRANULOCYTES 0.1 % (0-5); LYMPHOCYTES 3.4 % (15-50); MCH 32.3 pg (26.0-34.0); MCHC 31.4 g/dL (31.0-37.0); MCV 102.8 fL (80.0-100.0); MEAN PLATELET VOLUME 9.5 fL (7.4-10.4); MONOCYTES 3.7 % (2-11); NEUTROPHILS 92.6 % (40-80); PLATELET COUNT 117 10x3/uL (130-400); RBC 2.82 10x6/uL (4.20-6.10); RDW 14.6 % (11.5-14.5); WBC 6.8 10x3/uL (4.8-10.8)
[2020-02-05 05:20] LABS: CALCIUM 9.5 mg/dL (8.5-10.1); CARBON DIOXIDE 24.2 mmol/L (21.0-32.0); POTASSIUM - SERUM 5.2 mmol/L (3.5-5.1)
[2020-02-05 05:27] LABS: CREATININE - SERUM 7.6 mg/dL (0.6-1.3)
[2020-02-05 07:00] VITALS: BP 162/86
--- NOTE | 2020-02-05 07:20 | NUR ---
RECIEVE REPORT. WOUND VAC TO RT BKA INTACT. FREE FROM AIRLEAKS. LETHARGIC, AROUSES EASILY TO STIMULI. BED ALARM ON. NO SIGNS OF DISTRESS. CONTINUE PLAN OF CARE AND SAFETY PRECAUTIONS.
[2020-02-05 11:44] VITALS: BP 175/73
[2020-02-05 15:00] VITALS: BP 178/76
--- NOTE | 2020-02-05 20:01 | NUR ---
RECIEVED UP IN BED NAKED WITH ONLY A SHEET ON. HOME HEALTH CAREGIVER NOT WORKING. PLACED PAD BACK ON HIM AND WORKING AT THIS TIME. WOUND VAC TO RT BKA. DENIES ANY PAIN AND REFUSES TO TAKE PAIN MEDICATION. WHEN HE MOVES HIS FRESH BKA MAKES GROANING SOUNDS. DENIES ANY OTHER NEEDS.
[2020-02-05 21:30] VITALS: BP 141/75
[2020-02-06 00:53] VITALS: BP 146/82
[2020-02-06 04:30] VITALS: BP 152/86
[2020-02-06 06:00] LABS: BASOPHILS 0.3 % (0-2); EOSINOPHILS 1.8 % (0-7); HEMATOCRIT 27.4 % (42.0-54.0); HEMOGLOBIN 8.3 g/dL (13.5-17.5); IMMATURE GRANULOCYTES 0.2 % (0-5); LYMPHOCYTES 7.4 % (15-50); MCHC 30.3 g/dL (31.0-37.0); MCV 102.2 fL (80.0-100.0); MEAN PLATELET VOLUME 9.7 fL (7.4-10.4); MONOCYTES 12.5 % (2-11); NEUTROPHILS 77.8 % (40-80); RBC 2.68 10x6/uL (4.20-6.10); RDW 14.7 % (11.5-14.5); WBC 6.6 10x3/uL (4.8-10.8)
[2020-02-06 06:16] LABS: ANION GAP 20.6 mmol/L (8-16); CALCIUM 9.3 mg/dL (8.5-10.1); CARBON DIOXIDE 24.4 mmol/L (21.0-32.0)
[2020-02-06 06:27] LABS: PLATELET COUNT 147 10x3/uL (130-400)
--- NOTE | 2020-02-06 07:54 | NUR ---
PT LAYING SUPINE, RR EVEN AND UNLABORED. DENIES NEEDS OR PAIN AT THIS TIME. CALL LIGHT WITHIN REACH. BED IN LOWEST POSITION. WILL CONTINUE TO MONITOR.
[2020-02-06 09:46] VITALS: BP 179/65
[2020-02-06 16:05] VITALS: BP 91/55
--- NOTE | 2020-02-06 17:58 | NUR ---
I have reviewed this patient and I concur with the Shift Assessment completed by the Licensed Practical Nurse today this shift.
--- NOTE | 2020-02-06 18:28 | NUR ---
OT NOTE: PT EXHIBITED FLAT AFFECT. PT REQUIRED TOTAL A WITH SIMPLE FACE AND HAND HYGIENE . PT COMPLETED BUE PROM TOLERATED. NURSING NOTIFIED OF PT LACK OF INTENTION. [phone] THANK YOU,ALESSANDRA HARRELL
[2020-02-06 21:29] VITALS: BP 149/64
--- NOTE | 2020-02-07 01:52 | NUR ---
VICE PRESIDENT COMPLIANCE AT BED SIDE, BATH AND LINEN CHANGE COMPLETE. REPOSITIONED IN BED FOR COMFORT.
[2020-02-07 04:00] VITALS: BP 155/83
--- NOTE | 2020-02-07 04:42 | NUR ---
I have reviewed this patient and I concur with the Shift Assessment completed by the Licensed Practical Nurse today this shift.
[2020-02-07 05:20] LABS: BASOPHILS 0.2 % (0-2); EOSINOPHILS 0.2 % (0-7); HEMATOCRIT 27.9 % (42.0-54.0); HEMOGLOBIN 8.6 g/dL (13.5-17.5); IMMATURE GRANULOCYTES 0.1 % (0-5); LYMPHOCYTES 6.1 % (15-50); MCH 31.4 pg (26.0-34.0); MCHC 30.8 g/dL (31.0-37.0); MCV 101.8 fL (80.0-100.0); MEAN PLATELET VOLUME 8.9 fL (7.4-10.4); MONOCYTES 12.7 % (2-11); NEUTROPHILS 80.7 % (40-80); PLATELET COUNT 162 10x3/uL (130-400); RBC 2.74 10x6/uL (4.20-6.10); RDW 14.6 % (11.5-14.5)
[2020-02-07 05:21] LABS: WBC 9.1 10x3/uL (4.8-10.8)
--- NOTE | 2020-02-07 05:31 | NUR ---
PT SWATTING AT NURSES AND TRYING TO CLIMB OUT OF BED, ATIVAN GIVEN PO.
[2020-02-07 05:43] LABS: ANION GAP 19.8 mmol/L (8-16); CALCIUM 9.5 mg/dL (8.5-10.1); CARBON DIOXIDE 27.1 mmol/L (21.0-32.0); PHOSPHOROUS 6.4 mg/dL (2.5-4.9); POTASSIUM - SERUM 4.9 mmol/L (3.5-5.1)
--- NOTE | 2020-02-07 07:24 | NUR ---
PT LAYING SUPINE, RR EVEN AND UNLABORED ON RA. NO DISTRESS NOTED. CALL LIGHT WTIHIN REACH. BED IN LOWEST POSITION. WILL CONTINUE TO MONITOR.
[2020-02-07 07:50] VITALS: BP 159/45
--- NOTE | 2020-02-07 08:33 | MORECARE ---
CASE MANAGEMENT DISCHARGE SUMMARY PATIENT: MARC CHADWICK UNIT: [id number] ADM DATE: 01/28/20 AGE: 75 : 47 SEX: M ROOM/BED: D.2106 AUTHOR: ALCIDESDOC PHYSICIAN: REFERRING PHYSICIAN: MIGUEL GUERRERO MD DATE OF SERVICE: 02/07/20 Discharge Plan Patient Name: MARC CHADWICK Facility: [facility]:[place] : 1945 Planned Disposition: Anticipated Discharge Date: Discharge Date: Expected LOS: Initial Reviewer: [email or web address] Initial Review Date: 01/28/2020 Generated: 02/07/20 9:33 am Comments DCP- Discharge Planning Updated by [email or web address]: Isaías Webb on 02/03/20 2:[address] Patient Name: MARC CHADWICK Admission Status: ER Accout number: [id number] Admission Date: 01-28-2020 : 1945 Admission Diagnosis:ALTERED MENTAL STATUS, UNSPECIFIED Attending: MIGUEL GUERRERO Current LOS: 6 Anticipated DC Date: Planned Disposition: Primary Insurance: MEDICARE A & B Discharge Planning Comments: CM met with patient to complete initial dc planning assessment. CM educated patient on the CM role and verbal consent given by patient to complete assessment. CM verified patient's address, phone number, and emergency contact phone numbers. Patient lives at home with his roommate Ever Richmond ([phone]). Patient plans to discharge to a alf facility as his home is not a safe discharge option. DERRICK signed for [facility], [place], and [place]. CM discussed availability of home health, rehab services, and medical equipment. Patient declined HH, rehab services, and DME. Discussions with the patient's roommates and brother revealed the following: (1) Ever Richmond (roommate - [phone]) - Stated that he cannot physically take care of the patient because his hips are "bad". Mr. Richmond stated that he will possibly have hip surgery on 24 February 2020 and further stated that he is legally blind. Mr. Richmond stated that he wants the patient to come home but it is not feasible at this time due to his inability to provide adequate skilled care. Mr. Richmond stated that a mutual friend, Mallika Richter ([phone]) did help out with medications and transfers and house chores but that her living situation within the household is not certain; (2) Mallika Richter stated that she cannot take care of both men and was only at the home on a temporary basis. She further expressed urgency in the patient contacting his brother, Rafi Chadwick [phone] for clarification of power of civil rights attorney; and (3) Rafi Chadwick (brother) - stated that he strongly feels that alf facility would be appropriate and stated that he has medical power civil rights attorney. Mr. Rafi Chadwick feels that [facility] may be a more appropriate choice for SNF. Mr. Rafi Chadwick further stated that he would like to be informed either via email [email or web address]) or voicemail the outcome of SNF choice. Transportation provider at discharge will be from accepting SNF. CM will continue to follow and will assist as needed with dc plans/needs. Personal Injury Legal Assistant: Isaías Webb DCP- Discharge Planning Updated by [email or web address]: Inna Aviles on 01/29/20 8:[address] CM ATTEMTPED TO CALL [facility] AT [phone] BUT UNABLE TO REACH BY PHONE, AND UNABLE TO LEAVE MESSAGE. CM WILL CONTINUE TO ASSIST WITH DC PLANNING/NEEDS. INNA AVILES MSN,RN,CM DCPIA - Discharge Planning Initial Assessment Updated by [email or web address]: Isaías Webb on 02/03/20 3:50 pm * Is the patient Alert and Oriented? Yes * How many steps to enter\\exit or inside your home? RAMP * PCP SUPRIYA YO * Pharmacy [facility] * Preadmission Environment Home with Family * ADLs Partial Dependent * Partial ADLs (Assistance needed) Ambulation Dressing Medication Management Transfers * Equipment Crutch Glucometer Walker Wheelchair * Other Equipment Electronic wheelchair as well * List name and contact numbers for known caregivers / representatives who currently or will assist patient after discharge: Rafi Chadwick (brother) - [phone] Ari Cassidy (friend) - [phone] Mallika Richter (friend) - [phone] Ever Richmond (roommate) - [phone] * Verbal permission to speak to the caregivers and representatives has been obtained from the patient. Yes * Community resources currently utilized None * Additional services required to return to the preadmission environment? Yes * Can the patient safely return to the preadmission environment? No * Has this patient been hospitalized within the prior 30 days at any hospital? No External Providers External Provider: [facility] Next Contact Date: Service Request Date: Service Type: Resolution: Reviewer: Comments: Coverage Notice Reviewer: [email or web address] Farooq Webb Notice Issued Date-Time: 02/03/2020 14:31 Notice Type: Patient Choice Letter Notice Delivered To: Patient Relationship to Patient: Lease Buyer Name: Delivery Method: HAND - Hand Delivered Lakisha Days: Prior Verbal Notification: Recipient Understood Notice: Yes Recipient Signature: Yes Med Rec Note Co-signed by Attending: Coverage Notice Comment: Almaz Jacobs [place] Last DP export: 02/03/20 3:01 pm Patient Name: MARC CHADWICK Page 34455 at 0833 All edits/amendments must be made on the electronic document DICTATION DATE: 02/07/20832 IRON WORKER FOREMAN: JANN 02/07/20832 RPT#: [id number] DC DATE: STATUS: ADM IN [facility] [address] [place] [address] END OF REPORT
--- NOTE | 2020-02-07 09:30 | MORECARE ---
CASE MANAGEMENT DISCHARGE SUMMARY PATIENT: MARC CHADWICK UNIT: [id number] ADM DATE: 01/28/20 AGE: 75 : 47 SEX: M ROOM/BED: D.2106 AUTHOR: ALCIDESDOC PHYSICIAN: REFERRING PHYSICIAN: MIGUEL GUERRERO MD DATE OF SERVICE: 02/07/20 Discharge Plan Patient Name: MARC CHADWICK Facility: [facility]:[place] : 1945 Planned Disposition: Anticipated Discharge Date: Discharge Date: Expected LOS: Initial Reviewer: [id number] Initial Review Date: 01/28/2020 Generated: 02/07/20 10:29 am Comments DCP- Discharge Planning Updated by [id number]: Isaías Webb on 02/03/20 2:[address] Patient Name: MARC CHADWICK Admission Status: ER Accout number: [id number] Admission Date: 01-28-2020 : 1945 Admission Diagnosis:ALTERED MENTAL STATUS, UNSPECIFIED Attending: MIGUEL GUERRERO Current LOS: 6 Anticipated DC Date: Planned Disposition: Primary Insurance: MEDICARE A & B Discharge Planning Comments: CM met with patient to complete initial dc planning assessment. CM educated patient on the CM role and verbal consent given by patient to complete assessment. CM verified patient's address, phone number, and emergency contact phone numbers. Patient lives at home with his roommate Ever Richmond ([phone]). Patient plans to discharge to a longterm facility as his home is not a safe discharge option. DERRICK signed for [place], [place], and [place]. CM discussed availability of home health, rehab services, and medical equipment. Patient declined HH, rehab services, and DME. Discussions with the patient's roommates and brother revealed the following: (1) Ever Richmond (roommate - [phone]) - Stated that he cannot physically take care of the patient because his hips are "bad". Mr. Richmond stated that he will possibly have hip surgery on 24 February 2020 and further stated that he is legally blind. Mr. Richmond stated that he wants the patient to come home but it is not feasible at this time due to his inability to provide adequate skilled care. Mr. Richmond stated that a mutual friend, Mallika Richter ([phone]) did help out with medications and transfers and house chores but that her living situation within the household is not certain; (2) Mallika Richter stated that she cannot take care of both men and was only at the home on a temporary basis. She further expressed urgency in the patient contacting his brother, Rafi Chadwick [phone] for clarification of power of tank wagon driver; and (3) Rafi Chadwick (brother) - stated that he strongly feels that longterm facility would be appropriate and stated that he has medical power tank wagon driver. Mr. Rafi Chadwick feels that [facility] may be a more appropriate choice for SNF. Mr. Rafi Chadwick further stated that he would like to be informed either via email [email or web address]) or voicemail the outcome of SNF choice. Transportation provider at discharge will be from accepting SNF. CM will continue to follow and will assist as needed with dc plans/needs. Agricultural Economist: Isaías Webb DCP- Discharge Planning Updated by [email or web address]: Inna Aviles on 01/29/20 8:[address] CM ATTEMTPED TO CALL [facility] AT [phone] BUT UNABLE TO REACH BY PHONE, AND UNABLE TO LEAVE MESSAGE. CM WILL CONTINUE TO ASSIST WITH DC PLANNING/NEEDS. INNA AVILES MSN,RN,CM DCPIA - Discharge Planning Initial Assessment Updated by [id number]: Isaías Webb on 02/03/20 3:50 pm * Is the patient Alert and Oriented? Yes * How many steps to enter\\exit or inside your home? RAMP * PCP SUPRIYA YO * Pharmacy [facility] on [facility] * Preadmission Environment Home with Family * ADLs Partial Dependent * Partial ADLs (Assistance needed) Ambulation Dressing Medication Management Transfers * Equipment Crutch Glucometer Walker Wheelchair * Other Equipment Electronic wheelchair as well * List name and contact numbers for known caregivers / representatives who currently or will assist patient after discharge: Rafi Chadwick (brother) - [phone] Ari Cassidy (friend) - [phone] Mallika Richter (friend) - [phone] Ever Richmond (roommate) - [phone] * Verbal permission to speak to the caregivers and representatives has been obtained from the patient. Yes * Community resources currently utilized None * Additional services required to return to the preadmission environment? Yes * Can the patient safely return to the preadmission environment? No * Has this patient been hospitalized within the prior 30 days at any hospital? No External Providers External Provider: [facility] Next Contact Date: Service Request Date: Service Type: Resolution: Reviewer: Comments: Coverage Notice Reviewer: [id number] Farooq Webb Notice Issued Date-Time: 02/03/2020 14:31 Notice Type: Patient Choice Letter Notice Delivered To: Patient Relationship to Patient: Game Design Instructor Name: Delivery Method: HAND - Hand Delivered Lakisha Days: Prior Verbal Notification: Recipient Understood Notice: Yes Recipient Signature: Yes Med Rec Note Co-signed by Attending: Coverage Notice Comment: Almaz Jacobs [place] Last DP export: 02/07/20 7:33 am Patient Name: MARC CHADWICK Page 38031 at 0930 All edits/amendments must be made on the electronic document DICTATION DATE: 02/07/20928 SENIOR ELECTRICAL DESIGNER: JANN 02/07/20928 RPT#: [id number] DC DATE: STATUS: ADM IN [facility] [address] [place] [address] END OF REPORT
--- NOTE | 2020-02-07 09:55 | MORECARE ---
CASE MANAGEMENT DISCHARGE SUMMARY PATIENT: MARC CHADWICK UNIT: [id number] ADM DATE: 01/28/20 AGE: 75 : 47 SEX: M ROOM/BED: D.2106 AUTHOR: ALCIDESDOC PHYSICIAN: REFERRING PHYSICIAN: MIGUEL GUERRERO MD DATE OF SERVICE: 02/07/20 Discharge Plan Patient Name: MARC CHADWICK Facility: [facility]:[place] : 1945 Planned Disposition: Anticipated Discharge Date: Discharge Date: Expected LOS: Initial Reviewer: [email or web address] Initial Review Date: 01/28/2020 Generated: 02/07/20 10:55 am Comments DCP- Discharge Planning Updated by [id number]: Isaías Webb on 02/03/20 2:[address] Patient Name: MARC CHADWICK Admission Status: ER Accout number: [id number] Admission Date: 01-28-2020 : 1945 Admission Diagnosis:ALTERED MENTAL STATUS, UNSPECIFIED Attending: MIGUEL GUERRERO Current LOS: 6 Anticipated DC Date: Planned Disposition: Primary Insurance: MEDICARE A & B Discharge Planning Comments: CM met with patient to complete initial dc planning assessment. CM educated patient on the CM role and verbal consent given by patient to complete assessment. CM verified patient's address, phone number, and emergency contact phone numbers. Patient lives at home with his roommate Ever Richmond ([phone]). Patient plans to discharge to a care home facility as his home is not a safe discharge option. DERRICK signed for [place], [place], and [place]. CM discussed availability of home health, rehab services, and medical equipment. Patient declined HH, rehab services, and DME. Discussions with the patient's roommates and brother revealed the following: (1) Ever Richmond (roommate - [phone]) - Stated that he cannot physically take care of the patient because his hips are "bad". Mr. Richmond stated that he will possibly have hip surgery on 24 February 2020 and further stated that he is legally blind. Mr. Richmond stated that he wants the patient to come home but it is not feasible at this time due to his inability to provide adequate skilled care. Mr. Richmond stated that a mutual friend, Mallika Richter ([phone]) did help out with medications and transfers and house chores but that her living situation within the household is not certain; (2) Mallika Richter stated that she cannot take care of both men and was only at the home on a temporary basis. She further expressed urgency in the patient contacting his brother, Rafi Chadwick [phone] for clarification of power of commercial litigation attorney; and (3) Rafi Chadwick (brother) - stated that he strongly feels that care home facility would be appropriate and stated that he has medical power commercial litigation attorney. Mr. Rafi Chadwick feels that [facility] may be a more appropriate choice for SNF. Mr. Rafi Chadwick further stated that he would like to be informed either via email ([email or web address]) or voicemail the outcome of SNF choice. Transportation provider at discharge will be from accepting SNF. CM will continue to follow and will assist as needed with dc plans/needs. Exec. Creative Director: Isaías Webb DCP- Discharge Planning Updated by [email or web address]: Inna Aviles on 01/29/20 8:[address] CM ATTEMTPED TO CALL [facility] AT [phone] BUT UNABLE TO REACH BY PHONE, AND UNABLE TO LEAVE MESSAGE. CM WILL CONTINUE TO ASSIST WITH DC PLANNING/NEEDS. INNA AVILES MSN,RN,CM DCPIA - Discharge Planning Initial Assessment Updated by [email or web address]: Isaías Webb on 02/03/20 3:50 pm * Is the patient Alert and Oriented? Yes * How many steps to enter\\exit or inside your home? RAMP * PCP SUPRIYA YO * Pharmacy [facility] on [facility] * Preadmission Environment Home with Family * ADLs Partial Dependent * Partial ADLs (Assistance needed) Ambulation Dressing Medication Management Transfers * Equipment Crutch Glucometer Walker Wheelchair * Other Equipment Electronic wheelchair as well * List name and contact numbers for known caregivers / representatives who currently or will assist patient after discharge: Rafi Chadwick (brother) - [phone] Ari Cassidy (friend) - [phone] Mallika Richter (friend) - [phone] Ever Richmond (roommate) - [phone] * Verbal permission to speak to the caregivers and representatives has been obtained from the patient. Yes * Community resources currently utilized None * Additional services required to return to the preadmission environment? Yes * Can the patient safely return to the preadmission environment? No * Has this patient been hospitalized within the prior 30 days at any hospital? No External Providers External Provider: [facility] Next Contact Date: Service Request Date: Service Type: Resolution: Reviewer: Comments: Coverage Notice Reviewer: [id number] Farooq Webb Notice Issued Date-Time: 02/03/2020 14:31 Notice Type: Patient Choice Letter Notice Delivered To: Patient Relationship to Patient: Machined Parts Metal Sprayer Name: Delivery Method: HAND - Hand Delivered Lakisha Days: Prior Verbal Notification: Recipient Understood Notice: Yes Recipient Signature: Yes Med Rec Note Co-signed by Attending: Coverage Notice Comment: Almaz Jacobs [place] Last DP export: 02/07/20 8:30 am Patient Name: MARC CHADWICK Page 92391 at 0955 All edits/amendments must be made on the electronic document DICTATION DATE: 02/07/20954 CORE BLOWER OPERATOR: JANN 02/07/20954 RPT#: [id number] DC DATE: STATUS: ADM IN [facility] [address] [place] [address] END OF REPORT
--- NOTE | 2020-02-07 11:10 | NUR ---
Nutrition Follow-up: Pt remains confused. Nursing reports pt ate ~50-75% of meals yesterday but not eating today. PO intake fluctuating. Noted 0% x 3 meals recorded on 02/04. HD MWF. POD 3 R BKA. Diet: Renal ADA, Puree, Nepro TID Wt: 183.1# (01/29) Labs noted: K+ 4.9, Glu 145, PO4 6.4 Meds noted: Renvela, Humalog, Protonix, electrolyte protocol -Encourage PO intake and honor food preferences within diet restrictions. -Need new wt; noted daily wts ordered. -RD following.
[2020-02-07 11:46] VITALS: BP 197/99
--- NOTE | 2020-02-07 12:55 | MORECARE ---
CASE MANAGEMENT DISCHARGE SUMMARY PATIENT: MARC CHADWICK UNIT: [id number] ADM DATE: 01/28/20 AGE: 75 : 47 SEX: M ROOM/BED: D.2106 AUTHOR: ALCIDES,DOC PHYSICIAN: REFERRING PHYSICIAN: MIGUEL GUERRERO MD DATE OF SERVICE: 02/07/20 Discharge Plan Patient Name: MARC CHADWICK Facility: [facility]:[place] : 1945 Planned Disposition: Anticipated Discharge Date: Discharge Date: Expected LOS: Initial Reviewer: [email or web address] Initial Review Date: 01/28/2020 Generated: 02/07/20 1:54 pm Comments DCP- Discharge Planning Updated by [email or web address]: Isaías Webb on 02/03/20 2:[address] Patient Name: MARC CHADWICK Admission Status: ER Accout number: [id number] Admission Date: 01-28-2020 : 1945 Admission Diagnosis:ALTERED MENTAL STATUS, UNSPECIFIED Attending: MIGUEL GUERRERO Current LOS: 6 Anticipated DC Date: Planned Disposition: Primary Insurance: MEDICARE A & B Discharge Planning Comments: CM met with patient to complete initial dc planning assessment. CM educated patient on the CM role and verbal consent given by patient to complete assessment. CM verified patient's address, phone number, and emergency contact phone numbers. Patient lives at home with his roommate Ever Richmond ([phone]). Patient plans to discharge to a fpc facility as his home is not a safe discharge option. DERRICK signed for [place], [place], and [place]. CM discussed availability of home health, rehab services, and medical equipment. Patient declined HH, rehab services, and DME. Discussions with the patient's roommates and brother revealed the following: (1) Ever Richmond (roommate - [phone]) - Stated that he cannot physically take care of the patient because his hips are "bad". Mr. Richmond stated that he will possibly have hip surgery on 24 February 2020 and further stated that he is legally blind. Mr. Richmond stated that he wants the patient to come home but it is not feasible at this time due to his inability to provide adequate skilled care. Mr. Richmond stated that a mutual friend, Mallika Richter ([phone]) did help out with medications and transfers and house chores but that her living situation within the household is not certain; (2) Mallika Richter stated that she cannot take care of both men and was only at the home on a temporary basis. She further expressed urgency in the patient contacting his brother, Rafi Chadwick [phone] for clarification of power of county attorney; and (3) Rafi Chadwick (brother) - stated that he strongly feels that fpc facility would be appropriate and stated that he has medical power county attorney. Mr. Rafi Chadwick feels that [facility] may be a more appropriate choice for SNF. Mr. Rafi Chadwick further stated that he would like to be informed either via email [email or web address]) or voicemail the outcome of SNF choice. Transportation provider at discharge will be from accepting SNF. CM will continue to follow and will assist as needed with dc plans/needs. Quantitative Research Analyst: Isaías Webb DCP- Discharge Planning Updated by [email or web address]: Inna Aviles on 01/29/20 8:[address] CM ATTEMTPED TO CALL [facility] AT [phone] BUT UNABLE TO REACH BY PHONE, AND UNABLE TO LEAVE MESSAGE. CM WILL CONTINUE TO ASSIST WITH DC PLANNING/NEEDS. INNA AVILES MSN,RN,CM DCPIA - Discharge Planning Initial Assessment Updated by [id number]: Isaías Webb on 02/03/20 3:50 pm * Is the patient Alert and Oriented? Yes * How many steps to enter\\exit or inside your home? RAMP * PCP SUPRIYA OY * Pharmacy [facility] on [facility] * Preadmission Environment Home with Family * ADLs Partial Dependent * Partial ADLs (Assistance needed) Ambulation Dressing Medication Management Transfers * Equipment Crutch Glucometer Walker Wheelchair * Other Equipment Electronic wheelchair as well * List name and contact numbers for known caregivers / representatives who currently or will assist patient after discharge: Rafi Chadwick (brother) - [phone] Ari Cassidy (friend) - [phone] Mallika Richter (friend) - [phone] Ever Richmond (roommate) - [phone] * Verbal permission to speak to the caregivers and representatives has been obtained from the patient. Yes * Community resources currently utilized None * Additional services required to return to the preadmission environment? Yes * Can the patient safely return to the preadmission environment? No * Has this patient been hospitalized within the prior 30 days at any hospital? No External Providers External Provider: [facility] Next Contact Date: Service Request Date: Service Type: Resolution: Reviewer: Comments: Coverage Notice Reviewer: [id number] Farooq Webb Notice Issued Date-Time: 02/03/2020 14:31 Notice Type: Patient Choice Letter Notice Delivered To: Patient Relationship to Patient: Quill Buncher And Sorter Name: Delivery Method: HAND - Hand Delivered Lakisha Days: Prior Verbal Notification: Recipient Understood Notice: Yes Recipient Signature: Yes Med Rec Note Co-signed by Attending: Coverage Notice Comment: Almaz Jacobs [place] Last DP export: 02/07/20 8:55 am Patient Name: MARC CHADWICK Page 37918 at 1255 All edits/amendments must be made on the electronic document DICTATION DATE: 02/07/20 1254 ANCHOR TACKER: JANN 02/07/20 1254 RPT#: [id number] DC DATE: STATUS: ADM IN [facility] [address] [place] [address] END OF REPORT
--- NOTE | 2020-02-07 13:04 | MORECARE ---
CASE MANAGEMENT DISCHARGE SUMMARY PATIENT: MARC CHADWICK UNIT: [id number] ADM DATE: 01/28/20 AGE: 75 : 47 SEX: M ROOM/BED: D.2106 AUTHOR: ALCIDES,DOC PHYSICIAN: REFERRING PHYSICIAN: MIGUEL GUERRERO MD DATE OF SERVICE: 02/07/20 Discharge Plan Patient Name: MARC CHADWICK Facility: [facility]:[place] : 1945 Planned Disposition: Anticipated Discharge Date: Discharge Date: Expected LOS: Initial Reviewer: [id number] Initial Review Date: 01/28/2020 Generated: 02/07/20 2:03 pm Comments DCP- Discharge Planning Updated by [email or web address]: Jeannette Rosado on 02/07/20 11:[address] ANABEL assessment with clinical faxed to [employer], awaiting approval. DCP- Discharge Planning Updated by [id number]: Isaías Webb on 02/03/20 2:[address] Patient Name: MARC CHADWICK Admission Status: ER Accout number: [id number] Admission Date: 01-28-2020 : 1945 Admission Diagnosis:ALTERED MENTAL STATUS, UNSPECIFIED Attending: MIGUEL GUERRERO Current LOS: 6 Anticipated DC Date: Planned Disposition: Primary Insurance: MEDICARE A & B Discharge Planning Comments: CM met with patient to complete initial dc planning assessment. CM educated patient on the CM role and verbal consent given by patient to complete assessment. CM verified patient's address, phone number, and emergency contact phone numbers. Patient lives at home with his roommate Ever Richmond ([phone]). Patient plans to discharge to a usp facility as his home is not a safe discharge option. DERRICK signed for [place], [place], and [place]. CM discussed availability of home health, rehab services, and medical equipment. Patient declined HH, rehab services, and DME. Discussions with the patient's roommates and brother revealed the following: (1) Ever Richmond (roommate - [phone]) - Stated that he cannot physically take care of the patient because his hips are "bad". Mr. Richmond stated that he will possibly have hip surgery on 24 February 2020 and further stated that he is legally blind. Mr. Richmond stated that he wants the patient to come home but it is not feasible at this time due to his inability to provide adequate skilled care. Mr. Richmond stated that a mutual friend, Mallika Richter ([phone]) did help out with medications and transfers and house chores but that her living situation within the household is not certain; (2) Mallika Richter stated that she cannot take care of both men and was only at the home on a temporary basis. She further expressed urgency in the patient contacting his brother, Rafi Chadwick [phone] for clarification of power of oven laborer; and (3) Rafi Chadwick (brother) - stated that he strongly feels that usp facility would be appropriate and stated that he has medical power oven laborer. Mr. Rafi Chadwick feels that [facility] ([place], [place]) may be a more appropriate choice for SNF. Mr. Rafi Chadwick further stated that he would like to be informed either via email [email or web address]) or voicemail the outcome of SNF choice. Transportation provider at discharge will be from accepting SNF. CM will continue to follow and will assist as needed with dc plans/needs. Emr Trainer: Isaías Webb DCP- Discharge Planning Updated by [id number]: Inna Aviles on 01/29/20 8:[address] CM [facility] TO [facility] AT [phone] BUT UNABLE TO REACH BY PHONE, AND UNABLE TO LEAVE MESSAGE. CM WILL CONTINUE TO ASSIST WITH DC PLANNING/NEEDS. INNA AVILES MSN,RN,CM DCPIA - Discharge Planning Initial Assessment Updated by [email or web address]: Isaías Webb on 02/03/20 3:50 pm * Is the patient Alert and Oriented? Yes * How many steps to enter\\exit or inside your home? RAMP * PCP SUPRIYA YO * Pharmacy [facility] on [facility] * Preadmission Environment Home with Family * ADLs Partial Dependent * Partial ADLs (Assistance needed) Ambulation Dressing Medication Management Transfers * Equipment Crutch Glucometer Walker Wheelchair * Other Equipment Electronic wheelchair as well * List name and contact numbers for known caregivers / representatives who currently or will assist patient after discharge: Rafi Chadwick (brother) - [phone] Ari Cassidy (friend) - [phone] Mallika Richter (friend) - [phone] Ever Richmond (roommate) - [phone] * Verbal permission to speak to the caregivers and representatives has been obtained from the patient. Yes * Community resources currently utilized None * Additional services required to return to the preadmission environment? Yes * Can the patient safely return to the preadmission environment? No * Has this patient been hospitalized within the prior 30 days at any hospital? No Coverage Notice Reviewer: [id number] Farooq Webb Notice Issued Date-Time: 02/03/2020 14:31 Notice Type: Patient Choice Letter Notice Delivered To: Patient Relationship to Patient: Factory Maintenance Technician Name: Delivery Method: HAND - Hand Delivered Lakisha Days: Prior Verbal Notification: Recipient Understood Notice: Yes Recipient Signature: Yes Med Rec Note Co-signed by Attending: Coverage Notice Comment: Almaz Jacobs [place] Last DP export: 02/07/20 11:55 am Patient Name: MARC CHADWICK Page [id number] at 1304 All edits/amendments must be made on the electronic document DICTATION DATE: 02/07/20 1304 DEVELOPMENT EXECUTIVE: JANN 02/07/20 1304 RPT#: [id number] DC DATE: STATUS: ADM IN [facility] [address] [place] [address] END OF REPORT
--- NOTE | 2020-02-07 14:30 | MORECARE ---
CASE MANAGEMENT DISCHARGE SUMMARY PATIENT: MARC CHADWICK UNIT: [id number] ADM DATE: 01/28/20 AGE: 75 : 47 SEX: M ROOM/BED: D.2106 AUTHOR: ALCIDES,DOC PHYSICIAN: REFERRING PHYSICIAN: MIGUEL GUERRERO MD DATE OF SERVICE: 02/07/20 Discharge Plan Patient Name: MARC CHADWICK Facility: [facility]:[place] : 1945 Planned Disposition: Anticipated Discharge Date: Discharge Date: Expected LOS: Initial Reviewer: [email or web address] Initial Review Date: 01/28/2020 Generated: 02/07/20 3:29 pm Comments DCP- Discharge Planning Updated by [email or web address]: Isaías Webb on 02/07/20 1:[address] Visit with patient this morning. Patient is not communicative. Phone call to ROYAL, Rafi Chadwick (Brother) - [phone]. Conversation indicated that patient should go to SNF at [facility] and that he has a POA on file there with Silvia (psychotherapist social worker). Spoke with Kermit at [facility], clinical faxed. Will attempt placement and continue to follow and assist. DCP- Discharge Planning Updated by [email or web address]: Jeannette Rosado on 02/07/20 11:[address] ANABEL assessment with clinical faxed to [facility], awaiting approval. DCP- Discharge Planning Updated by [email or web address]: Isaías Webb on 02/03/20 2:[address] Patient Name: MARC CHADWICK Admission Status: ER Accout number: [id number] Admission Date: 01-28-2020 : 1945 Admission Diagnosis:ALTERED MENTAL STATUS, UNSPECIFIED Attending: MIGUEL GUERRERO Current LOS: 6 Anticipated DC Date: Planned Disposition: Primary Insurance: MEDICARE A & B Discharge Planning Comments: CM met with patient to complete initial dc planning assessment. CM educated patient on the CM role and verbal consent given by patient to complete assessment. CM verified patient's address, phone number, and emergency contact phone numbers. Patient lives at home with his roommate Ever Richmond ([phone]). Patient plans to discharge to a fdc facility as his home is not a safe discharge option. DERRICK signed for [place], [place], and [place]. CM discussed availability of home health, rehab services, and medical equipment. Patient declined HH, rehab services, and DME. Discussions with the patient's roommates and brother revealed the following: (1) Ever Richmond (roommate - [phone]) - Stated that he cannot physically take care of the patient because his hips are "bad". Mr. Richmond stated that he will possibly have hip surgery on 24 February 2020 and further stated that he is legally blind. Mr. Richmond stated that he wants the patient to come home but it is not feasible at this time due to his inability to provide adequate skilled care. Mr. Richmond stated that a mutual friend, Mallika Richter ([phone]) did help out with medications and transfers and house chores but that her living situation within the household is not certain; (2) Mallika Richter stated that she cannot take care of both men and was only at the home on a temporary basis. She further expressed urgency in the patient contacting his brother, Rafi Chadwick [phone] for clarification of power of bankruptcy attorney; and (3) Rafi Chadwick (brother) - stated that he strongly feels that fdc facility would be appropriate and stated that he has medical power bankruptcy attorney. Mr. Rafi Chadwick feels that [facility] may be a more appropriate choice for SNF. Mr. Rafi Chadwick further stated that he would like to be informed either via email ( ) or voicemail the outcome of SNF choice. Transportation provider at discharge will be from accepting SNF. CM will continue to follow and will assist as needed with dc plans/needs. Claims Attorney: Isaías Webb DCP- Discharge Planning Updated by [email or web address]: Inna Aviles on 01/29/20 8:[address] CM ATTEMTPED TO CALL EARNEST AT [phone] BUT UNABLE TO REACH BY PHONE, AND UNABLE TO LEAVE MESSAGE. CM WILL CONTINUE TO ASSIST WITH DC PLANNING/NEEDS. INNA AVILES MSN,RN,CM DCPIA - Discharge Planning Initial Assessment Updated by [email or web address]: Isaías Webb on 02/03/20 3:50 pm * Is the patient Alert and Oriented? Yes * How many steps to enter\\exit or inside your home? RAMP * PCP SUPRIYA YO * Pharmacy [facility] on [facility] * Preadmission Environment Home with Family * ADLs Partial Dependent * Partial ADLs (Assistance needed) Ambulation Dressing Medication Management Transfers * Equipment Crutch Glucometer Walker Wheelchair * Other Equipment Electronic wheelchair as well * List name and contact numbers for known caregivers / representatives who currently or will assist patient after discharge: Rafi Chadwick (brother) - [phone] Ari Cassidy (friend) - [phone] Mallika Richter (friend) - [phone] Ever Richmond (roommate) - [phone] * Verbal permission to speak to the caregivers and representatives has been obtained from the patient. Yes * Community resources currently utilized None * Additional services required to return to the preadmission environment? Yes * Can the patient safely return to the preadmission environment? No * Has this patient been hospitalized within the prior 30 days at any hospital? No Coverage Notice Reviewer: [email or web address] Farooq Webb Notice Issued Date-Time: 02/03/2020 14:31 Notice Type: Patient Choice Letter Notice Delivered To: Patient Relationship to Patient: Manpower Development Advisor Name: Delivery Method: HAND - Hand Delivered Lakisha Days: Prior Verbal Notification: Recipient Understood Notice: Yes Recipient Signature: Yes Med Rec Note Co-signed by Attending: Coverage Notice Comment: Almaz Jacobs [place] Last DP export: 02/07/20 12:04 pm Patient Name: MARC CHADWICK Page [id number] at 1430 All edits/amendments must be made on the electronic document DICTATION DATE: 02/07/20 1429 RN PLASTIC SURGERY: JANN 02/07/20 1429 RPT#: [id number] DC DATE: STATUS: ADM IN [facility] [address] [place] [address] END OF REPORT
--- NOTE | 2020-02-07 14:52 | NUR ---
OT NOTE: PT REQUIRED TOTAL A WITH SIMPLE HYGIENE TASKS . PT NOT RESPONDING TO QUESTIONS OR DIRECTIONS . NURSING NOTIFIED OF PT LETHARGIC STATE. PT COMPLETED BED MOB WITH TOTAL A. PT COMPLETED UE PROM TOLERATED. 3-910 THANK YOU,ALESSANDRA HARRELL
--- NOTE | 2020-02-07 15:01 | MORECARE ---
CASE MANAGEMENT DISCHARGE SUMMARY PATIENT: MARC CHADWICK UNIT: [id number] ADM DATE: 01/28/20 AGE: 75 : 47 SEX: M ROOM/BED: D.2106 AUTHOR: ALCIDES,DOC PHYSICIAN: REFERRING PHYSICIAN: MIGUEL GUERRERO MD DATE OF SERVICE: 02/07/20 Discharge Plan Patient Name: MARC CHADWICK Facility: [facility]:[place] : 1945 Planned Disposition: Anticipated Discharge Date: Discharge Date: Expected LOS: Initial Reviewer: [email or web address] Initial Review Date: 01/28/2020 Generated: 02/07/20 4:01 pm Comments DCP- Discharge Planning Updated by [email or web address]: Jeannette Rosado on 02/07/20 1:[address] Received ANABEL approval for SNF placement, faxed to [facility]. DCP- Discharge Planning Updated by [id number]: Isaías Webb on 02/07/20 1:[address] Visit with patient this morning. Patient is not communicative. Phone call to ROYAL, Rafi Chadwick (Brother) - [phone]. Conversation indicated that patient should go to SNF at [facility] and that he has a POA on file there with Silvia (child protective services social worker). Spoke with Kermit at [facility], clinical faxed. Will attempt placement and continue to follow and assist. DCP- Discharge Planning Updated by [email or web address]: Jeannette Rosado on 02/07/20 11:[address] ANABEL assessment with clinical faxed to [facility], awaiting approval. DCP- Discharge Planning Updated by [email or web address]: Isaías Webb on 02/03/20 2:[address] Patient Name: MRAC CHADWICK Admission Status: ER Accout number: [id number] Admission Date: 01-28-2020 : 1945 Admission Diagnosis:ALTERED MENTAL STATUS, UNSPECIFIED Attending: MIGUEL GUERRERO Current LOS: 6 Anticipated DC Date: Planned Disposition: Primary Insurance: MEDICARE A & B Discharge Planning Comments: CM met with patient to complete initial dc planning assessment. CM educated patient on the CM role and verbal consent given by patient to complete assessment. CM verified patient's address, phone number, and emergency contact phone numbers. Patient lives at home with his roommate Ever Richmond ([phone]). Patient plans to discharge to a longterm facility as his home is not a safe discharge option. DERRICK signed for [place], [place], and [place]. CM discussed availability of home health, rehab services, and medical equipment. Patient declined HH, rehab services, and DME. Discussions with the patient's roommates and brother revealed the following: (1) Ever Richmond (roommate - [phone]) - Stated that he cannot physically take care of the patient because his hips are "bad". Mr. Richmond stated that he will possibly have hip surgery on 24 February 2020 and further stated that he is legally blind. Mr. Richmond stated that he wants the patient to come home but it is not feasible at this time due to his inability to provide adequate skilled care. Mr. Richmond stated that a mutual friend, Mallika Richter ([phone]) did help out with medications and transfers and house chores but that her living situation within the household is not certain; (2) Mallika Richter stated that she cannot take care of both men and was only at the home on a temporary basis. She further expressed urgency in the patient contacting his brother, Rafi Chadwick ([phone] for clarification of power of ip technology transactions attorney; and (3) Rafi Chadwick (brother) - stated that he strongly feels that longterm facility would be appropriate and stated that he has medical power ip technology transactions attorney. Mr. Rafi Chadwick feels that [facility] may be a more appropriate choice for SNF. Mr. Rafi Chadwick further stated that he would like to be informed either via email ( ) or voicemail the outcome of SNF choice. Transportation provider at discharge will be from accepting SNF. CM will continue to follow and will assist as needed with dc plans/needs. Oven Roaster: Isaías Webb DCP- Discharge Planning Updated by [id number]: Inna Aviles on 01/29/20 8:[address] CM ATTEMTPED TO CALL EARNEST AT [phone] BUT UNABLE TO REACH BY PHONE, AND UNABLE TO LEAVE MESSAGE. CM WILL CONTINUE TO ASSIST WITH DC PLANNING/NEEDS. INNA AVILES MSN,RN,CM DCPIA - Discharge Planning Initial Assessment Updated by [email or web address]: Isaías Webb on 02/03/20 3:50 pm * Is the patient Alert and Oriented? Yes * How many steps to enter\\exit or inside your home? RAMP * PCP SUPRIYA YO * Pharmacy [facility] * Preadmission Environment Home with Family * ADLs Partial Dependent * Partial ADLs (Assistance needed) Ambulation Dressing Medication Management Transfers * Equipment Crutch Glucometer Walker Wheelchair * Other Equipment Electronic wheelchair as well * List name and contact numbers for known caregivers / representatives who currently or will assist patient after discharge: Rafi Chadwick (brother) - [phone] Prudencioadalid Cassidy (friend) - [phone] Mallika Richter (friend) - [phone] Ever Richmond (roommate) - [phone] * Verbal permission to speak to the caregivers and representatives has been obtained from the patient. Yes * Community resources currently utilized None * Additional services required to return to the preadmission environment? Yes * Can the patient safely return to the preadmission environment? No * Has this patient been hospitalized within the prior 30 days at any hospital? No Coverage Notice Reviewer: [id number] - Isaías Webb Notice Issued Date-Time: 02/03/2020 14:31 Notice Type: Patient Choice Letter Notice Delivered To: Patient Relationship to Patient: Change Control Coordinator Name: Delivery Method: HAND - Hand Delivered Lakisha Days: Prior Verbal Notification: Recipient Understood Notice: Yes Recipient Signature: Yes Med Rec Note Co-signed by Attending: Coverage Notice Comment: Almaz Jacobs [place] Last DP export: 02/07/20 1:30 pm Patient Name: MARC CHADWICK Page [id number] at 1501 All edits/amendments must be made on the electronic document DICTATION DATE: 02/07/20 1501 CHAR BELT OPERATOR: JANN 02/07/20 1501 RPT#: [id number] DC DATE: STATUS: ADM IN [place] [address] [place] [address] END OF REPORT
--- NOTE | 2020-02-07 15:32 | NUR ---
I have reviewed this patient and I concur with the Shift Assessment completed by the Licensed Practical Nurse today this shift.
[2020-02-07 16:11] VITALS: BP 163/71
--- NOTE | 2020-02-07 20:16 | NUR ---
RECIEVED UP IN BED WITH EYES CLOSED AND MEAL TRAYAT BEDSIDE COVER UP. HEATED TRAY AND FED HIM 100%. INCLUDING NEPHRO. IV TO LT POSTERIOR FA. O2 PLACED BACK ON PATIENT. NO S/S OF DISTRESS OBSERVED.
[2020-02-07 20:43] VITALS: BP 175/77
[2020-02-08] VITALS: BP 167/85
[2020-02-08 04:00] VITALS: BP 167/83
[2020-02-08 06:22] LABS: BASOPHILS 0.2 % (0-2); EOSINOPHILS 1.2 % (0-7); HEMATOCRIT 27.8 % (42.0-54.0); HEMOGLOBIN 8.6 g/dL (13.5-17.5); IMMATURE GRANULOCYTES 0.2 % (0-5); LYMPHOCYTES 8.7 % (15-50); MCH 31.6 pg (26.0-34.0); MCHC 30.9 g/dL (31.0-37.0); MCV 102.2 fL (80.0-100.0); MEAN PLATELET VOLUME 9.5 fL (7.4-10.4); MONOCYTES 11.8 % (2-11); NEUTROPHILS 77.9 % (40-80); PLATELET COUNT 167 10x3/uL (130-400); RBC 2.72 10x6/uL (4.20-6.10); RDW 14.9 % (11.5-14.5)
[2020-02-08 06:34] LABS: ANION GAP 21.4 mmol/L (8-16); CALCIUM 9.5 mg/dL (8.5-10.1); CARBON DIOXIDE 23.2 mmol/L (21.0-32.0); POTASSIUM - SERUM 4.6 mmol/L (3.5-5.1)
[2020-02-08 06:36] LABS: CREATININE - SERUM 9.6 mg/dL (0.6-1.3)
[2020-02-08 07:42] VITALS: BP 167/77
[2020-02-08 15:30] VITALS: BP 168/70
--- NOTE | 2020-02-08 16:53 | NUR ---
ATTEMPTED TO CHECK BLOOD SUGAR AND PATIENT PULLED HAND AWAY VIOLENTLY AND SHOOK AT ME. REFUSED TO TAKE SCHEDULED MEDICINE.
--- NOTE | 2020-02-08 19:30 | NUR ---
PT IN BED, AAOX1, RESP EVEN AND UNLABORED, NO DISTRESS NOTED, CL IN REACH, SR UP X 2.
[2020-02-08 21:11] VITALS: BP 103/77
[2020-02-09] VITALS: BP 161/77
[2020-02-09 04:00] VITALS: BP 120/60
[2020-02-09 06:38] LABS: BASOPHILS 0.1 % (0-2); EOSINOPHILS 2.6 % (0-7); HEMATOCRIT 26.7 % (42.0-54.0); HEMOGLOBIN 8.2 g/dL (13.5-17.5); IMMATURE GRANULOCYTES 0.1 % (0-5); LYMPHOCYTES 8.7 % (15-50); MCH 31.4 pg (26.0-34.0); MCHC 30.7 g/dL (31.0-37.0); MCV 102.3 fL (80.0-100.0); MEAN PLATELET VOLUME 9.3 fL (7.4-10.4); NEUTROPHILS 75.5 % (40-80); PLATELET COUNT 138 10x3/uL (130-400); RBC 2.61 10x6/uL (4.20-6.10); RDW 14.6 % (11.5-14.5)
[2020-02-09 07:05] LABS: ANION GAP 15.7 mmol/L (8-16); CALCIUM 9.4 mg/dL (8.5-10.1); CREATININE - SERUM 6.8 mg/dL (0.6-1.3); POTASSIUM - SERUM 4.7 mmol/L (3.5-5.1)
--- NOTE | 2020-02-09 07:10 | NUR ---
RECEIVE BEDSIDE SHIFT REPORT. RESTING IN BED WITH EYES CLOSED. NO SIGNS OF DISTRESS. WILL CONTINUE PLAN OF CARE AND SAFETY PRECAUTIONS.
[2020-02-09 08:01] VITALS: BP 127/45
--- NOTE | 2020-02-09 08:01 | MORECARE ---
CASE MANAGEMENT DISCHARGE SUMMARY PATIENT: MARC CHADWICK UNIT: [id number] ADM DATE: 01/28/20 AGE: 75 : 47 SEX: M ROOM/BED: D.2106 AUTHOR: ALCIDES,DOC PHYSICIAN: REFERRING PHYSICIAN: MIGUEL GUERRERO MD DATE OF SERVICE: 02/09/20 Discharge Plan Patient Name: MARC CHADWICK Facility: [facility]:[place] : 1945 Planned Disposition: Anticipated Discharge Date: Discharge Date: Expected LOS: Initial Reviewer: [email or web address] Initial Review Date: 01/28/2020 Generated: 02/09/20 9:00 am Comments DCP- Discharge Planning Updated by [id number]: Jeannette Rosado on 02/09/20 7:[address] UPDATED CLINICAL FAXED TO [facility]. AWAITING ACCEPTANCE FROM [facility]. CM WILL CONTINUE TO FOLLOW AND ASSIST WITH DISCHARGE PLANNING/NEEDS. DCP- Discharge Planning Updated by [email or web address]: Jeannette Rosado on 02/07/20 1:[address] Received SPENCER approval for SNF placement, faxed to [facility]. DCP- Discharge Planning Updated by [id number]: Isaías Webb on 02/07/20 1:[address] Visit with patient this morning. Patient is not communicative. Phone call to ROYAL, Rafi Chadwick (Brother) - [phone]. Conversation indicated that patient should go to SNF at [facility] and that he has a POA on file there with Silvia (social worker palliative care). Spoke with Kermit at [facility], clinical faxed. Will attempt placement and continue to follow and assist. DCP- Discharge Planning Updated by [email or web address]: Jeannette Rosado on 02/07/20 11:[address] ANABEL assessment with clinical faxed to [facility], awaiting approval. DCP- Discharge Planning Updated by [id number]: Isaías Webb on 02/03/20 2:[address] Patient Name: MARC CHADWICK Admission Status: ER Accout number: [id number] Admission Date: 01-28-2020 : 1945 Admission Diagnosis:ALTERED MENTAL STATUS, UNSPECIFIED Attending: MIGUEL GUERRERO Current LOS: 6 Anticipated DC Date: Planned Disposition: Primary Insurance: MEDICARE A & B Discharge Planning Comments: CM met with patient to complete initial dc planning assessment. CM educated patient on the CM role and verbal consent given by patient to complete assessment. CM verified patient's address, phone number, and emergency contact phone numbers. Patient lives at home with his roommate Ever Richmond ([phone]). Patient plans to discharge to a nursing home facility as his home is not a safe discharge option. DERRICK signed for [place], [place], and [place]. CM discussed availability of home health, rehab services, and medical equipment. Patient declined HH, rehab services, and DME. Discussions with the patient's roommates and brother revealed the following: (1) Ever Richmond (roommate - [phone]) - Stated that he cannot physically take care of the patient because his hips are "bad". Mr. Richmond stated that he will possibly have hip surgery on 24 February 2020 and further stated that he is legally blind. Mr. Richmond stated that he wants the patient to come home but it is not feasible at this time due to his inability to provide adequate skilled care. Mr. Richmond stated that a mutual friend, Mallika Richter ([phone]) did help out with medications and transfers and house chores but that her living situation within the household is not certain; (2) Mallika Richter stated that she cannot take care of both men and was only at the home on a temporary basis. She further expressed urgency in the patient contacting his brother, Rafi Chadwick [phone] for clarification of power of ip attorney; and (3) Rafi Chadwick (brother) - stated that he strongly feels that nursing home facility would be appropriate and stated that he has medical power ip attorney. Mr. Rafi Chadwick feels that [facility] may be a more appropriate choice for SNF. Mr. Rafi Chadwick further stated that he would like to be informed either via email [email or web address]) or voicemail the outcome of SNF choice. Transportation provider at discharge will be from accepting SNF. CM will continue to follow and will assist as needed with dc plans/needs. Balance Bridge Inspector: Isaías Webb DCP- Discharge Planning Updated by [id number]: Inna Aviles on 01/29/20 8:[address] CM ATTEMTPED TO CALL [facility] AT [phone] BUT UNABLE TO REACH BY PHONE, AND UNABLE TO LEAVE MESSAGE. CM WILL CONTINUE TO ASSIST WITH DC PLANNING/NEEDS. INNA AVILES MSN,RN,CM DCPIA - Discharge Planning Initial Assessment Updated by [email or web address]: Isaías Webb on 02/03/20 3:50 pm * Is the patient Alert and Oriented? Yes * How many steps to enter\\exit or inside your home? RAMP * PCP SUPRIYA YO * Pharmacy [facility] on [facility] * Preadmission Environment Home with Family * ADLs Partial Dependent * Partial ADLs (Assistance needed) Ambulation Dressing Medication Management Transfers * Equipment Crutch Glucometer Walker Wheelchair * Other Equipment Electronic wheelchair as well * List name and contact numbers for known caregivers / representatives who currently or will assist patient after discharge: Rafi Chadwick (brother) - [phone] Ari Ange (friend) - [phone] Mallikaatiya Richter (friend) - [phone] Ever Richmond (roommate) - [phone] * Verbal permission to speak to the caregivers and representatives has been obtained from the patient. Yes * Community resources currently utilized None * Additional services required to return to the preadmission environment? Yes * Can the patient safely return to the preadmission environment? No * Has this patient been hospitalized within the prior 30 days at any hospital? No Coverage Notice Reviewer: [id number] - Isaías Webb Notice Issued Date-Time: 02/03/2020 14:31 Notice Type: Patient Choice Letter Notice Delivered To: Patient Relationship to Patient: Push Bench Operator Helper Name: Delivery Method: HAND - Hand Delivered Lakisha Days: Prior Verbal Notification: Recipient Understood Notice: Yes Recipient Signature: Yes Med Rec Note Co-signed by Attending: Coverage Notice Comment: Almaz Jacobs [place] Last DP export: 02/07/20 2:01 pm Patient Name: MARC CHADWICK Page [id number] at 0801 All edits/amendments must be made on the electronic document DICTATION DATE: 02/09/20800 FOLLOW UP CLERK: JANN 02/09/20800 RPT#: [id number] DC DATE: STATUS: ADM IN [facility] [address] [facility] [place] [address] END OF REPORT
--- NOTE | 2020-02-09 12:34 | NUR ---
Nutrition Follow-up: POD 5 R BKA. Pt remains confused. Poor PO intake. 0% recorded this AM. HD yesterday. Awaiting placement. Diet: Renal ADA, Puree, Nepro TID PO intake: 0% x 4 meals Wt: 128# (02/08) Labs noted: K+ 4.7, Glu 123 Meds noted: Humalog, Protonix, electrolyte protocol -Encourage PO intake and honor food preferences within diet restrictions. -Pt may benefit from an appetite stimulant. -Monitor wt; noted daily wts ordered. -RD following.
--- NOTE | 2020-02-09 12:34 | NUR ---
NOTIFIED [facility] KENNEDY THAT PATIENT HAS BEEN LETHARGIC AND PUPILS ARE SLUGGISH. COMPLAINTS OF NOT FEELING WELL BUT NOT ABLE TO COMMUNICATE HOW HE IS NOT FEELING WELL. PHYSICAL THERAPY ALSO STATED THEIR CONCERNS TO ME. WILL CONTINUE PLAN OF CARE AND SAFETY PRECAUTIONS.
[2020-02-09 13:28] VITALS: BP 152/57
--- NOTE | 2020-02-09 14:19 | MORECARE ---
CASE MANAGEMENT DISCHARGE SUMMARY PATIENT: MARC CHADWICK UNIT: [id number] ADM DATE: 01/28/20 AGE: 75 : 47 SEX: M ROOM/BED: D.2106 AUTHOR: ALCIDES,DOC PHYSICIAN: REFERRING PHYSICIAN: MIGUEL GUERRERO MD DATE OF SERVICE: 02/09/20 Discharge Plan Patient Name: MARC CHADWICK Facility: [facility]:[place] : 1945 Planned Disposition: Anticipated Discharge Date: Discharge Date: Expected LOS: Initial Reviewer: [email or web address] Initial Review Date: 01/28/2020 Generated: 02/09/20 3:18 pm Comments DCP- Discharge Planning Updated by [email or web address]: Jeannette Rosado on 02/09/20 1:[address] I spoke with Kermit at [facility]. They have sent admission paperwork for brother to sign and are awaiting return of signed papers. CM will continue to follow and assist with discharge planning/needs. DCP- Discharge Planning Updated by [id number]: Jeannette Rosado on 02/09/20 7:[address] UPDATED CLINICAL FAXED TO [facility]. AWAITING ACCEPTANCE FROM [facility]. CM WILL CONTINUE TO FOLLOW AND ASSIST WITH DISCHARGE PLANNING/NEEDS. DCP- Discharge Planning Updated by [email or web address]: Jeannette Rosado on 02/07/20 1:[address] Received [place] approval for SNF placement, faxed to [facility]. DCP- Discharge Planning Updated by [email or web address]: Isaías Webb on 02/07/20 1:[address] Visit with patient this morning. Patient is not communicative. Phone call to ROYAL, Rafi Debbie (Brother) - [phone]. Conversation indicated that patient should go to SNF at [facility] and that he has a POA on file there with Silvia (social media marketing manager). Spoke with Kermit at [facility], clinical faxed. Will attempt placement and continue to follow and assist. DCP- Discharge Planning Updated by [email or web address]: Jeannette Rosado on 02/07/20 11:[address] [facility] assessment with clinical faxed to [facility], awaiting approval. DCP- Discharge Planning Updated by [id number]: Isaías Webb on 02/03/20 2:[address] Patient Name: MARC CHADWICK Admission Status: ER Accout number: [id number] Admission Date: 01-28-2020 : 1945 Admission Diagnosis:ALTERED MENTAL STATUS, UNSPECIFIED Attending: MIGUEL GUERRERO Current LOS: 6 Anticipated DC Date: Planned Disposition: Primary Insurance: MEDICARE A & B Discharge Planning Comments: CM met with patient to complete initial dc planning assessment. CM educated patient on the CM role and verbal consent given by patient to complete assessment. CM verified patient's address, phone number, and emergency contact phone numbers. Patient lives at home with his roommate Ever Richmond ([phone]). Patient plans to discharge to a residential facility as his home is not a safe discharge option. DERRICK signed for [place], [place], and [place]. CM discussed availability of home health, rehab services, and medical equipment. Patient declined HH, rehab services, and DME. Discussions with the patient's roommates and brother revealed the following: (1) Ever Richmond (roommate - [phone]) - Stated that he cannot physically take care of the patient because his hips are "bad". Mr. Richmond stated that he will possibly have hip surgery on 24 February 2020 and further stated that he is legally blind. Mr. Richmond stated that he wants the patient to come home but it is not feasible at this time due to his inability to provide adequate skilled care. Mr. Richmond stated that a mutual friend, Mallika Richter ([phone]) did help out with medications and transfers and house chores but that her living situation within the household is not certain; (2) Mallika Richter stated that she cannot take care of both men and was only at the home on a temporary basis. She further expressed urgency in the patient contacting his brother, Rafi Chadwick [phone] for clarification of power of credit administration manager; and (3) Rafi Debbie (brother) - stated that he strongly feels that residential facility would be appropriate and stated that he has medical power credit administration manager. Mr. Rafi Farrellney feels that [facility] may be a more appropriate choice for SNF. Mr. Rafi Chadwick further stated that he would like to be informed either via email ([email or web address]) or voicemail the outcome of SNF choice. Transportation provider at discharge will be from accepting SNF. CM will continue to follow and will assist as needed with dc plans/needs. Movie Editor: Isaías Webb DCP- Discharge Planning Updated by [email or web address]: Inna Aviles on 01/29/20 8:[address] CM [facility] AT [phone] BUT UNABLE TO REACH BY PHONE, AND UNABLE TO LEAVE MESSAGE. CM WILL CONTINUE TO ASSIST WITH DC PLANNING/NEEDS. INNA AVILES MSN,RN,CM DCPIA - Discharge Planning Initial Assessment Updated by [email or web address]: Isaías Webb on 02/03/20 3:50 pm * Is the patient Alert and Oriented? Yes * How many steps to enter\\exit or inside your home? RAMP * PCP SUPRIYA YO * Pharmacy [facility] * Preadmission Environment Home with Family * ADLs Partial Dependent * Partial ADLs (Assistance needed) Ambulation Dressing Medication Management Transfers * Equipment Crutch Glucometer Walker Wheelchair * Other Equipment Electronic wheelchair as well * List name and contact numbers for known caregivers / representatives who currently or will assist patient after discharge: Rafi Chadwick (brother) - [phone] Ari Ange (friend) - [phone] Mallika Richter (friend) - [phone] Ever Richmond (roommate) - [phone] * Verbal permission to speak to the caregivers and representatives has been obtained from the patient. Yes * Community resources currently utilized None * Additional services required to return to the preadmission environment? Yes * Can the patient safely return to the preadmission environment? No * Has this patient been hospitalized within the prior 30 days at any hospital? No Coverage Notice Reviewer: [id number] - Isaías Webb Notice Issued Date-Time: 02/03/2020 14:31 Notice Type: Patient Choice Letter Notice Delivered To: Patient Relationship to Patient: Automobile Bumper Straightener Name: Delivery Method: HAND - Hand Delivered Lakisha Days: Prior Verbal Notification: Recipient Understood Notice: Yes Recipient Signature: Yes Med Rec Note Co-signed by Attending: Coverage Notice Comment: Almaz Jacobs [place] Last DP export: 02/09/20 7:01 a Patient Name: MARC CHADWICK Page [id number] at 1419 All edits/amendments must be made on the electronic document DICTATION DATE: 02/09/201417 RICE FARMWORKER: JANN 02/09/201417 RPT#: [id number] DC DATE: STATUS: ADM IN [facility] [address] [place] [address] END OF REPORT
--- NOTE | 2020-02-09 16:03 | MORECARE ---
CASE MANAGEMENT DISCHARGE SUMMARY PATIENT: MARC CHADWICK UNIT: [id number] ADM DATE: 01/28/20 AGE: 75 : 47 SEX: M ROOM/BED: D.2106 AUTHOR: ALCIDES,DOC PHYSICIAN: REFERRING PHYSICIAN: MIGUEL GUERRERO MD DATE OF SERVICE: 02/09/20 Discharge Plan Patient Name: MARC CHADWICK Facility: [facility]:[place] : 1945 Planned Disposition: Anticipated Discharge Date: Discharge Date: Expected LOS: Initial Reviewer: [email or web address] Initial Review Date: 01/28/2020 Generated: 02/09/20 5:02 pm Comments DCP- Discharge Planning Updated by [email or web address]: Jeannette Rosado on 02/09/20 1:[address] I spoke with Kermit at [facility]. They have sent admission paperwork for brother to sign and are awaiting return of signed papers. CM will continue to follow and assist with discharge planning/needs. DCP- Discharge Planning Updated by [id number]: Jeannette Rosado on 02/09/20 7:[address] UPDATED CLINICAL FAXED TO [facility]. AWAITING ACCEPTANCE FROM [facility]. CM WILL CONTINUE TO FOLLOW AND ASSIST WITH DISCHARGE PLANNING/NEEDS. DCP- Discharge Planning Updated by [email or web address]: Jeannette Rosado on 02/07/20 1:[address] Received [place] approval for SNF placement, faxed to [facility]. DCP- Discharge Planning Updated by [email or web address]: Isaías Webb on 02/07/20 1:[address] Visit with patient this morning. Patient is not communicative. Phone call to ROYAL, Rafi Debbie (Brother) - [phone]. Conversation indicated that patient should go to SNF at [facility] and that he has a POA on file there with Silvia (manager social media). Spoke with Kermit at [facility], clinical faxed. Will attempt placement and continue to follow and assist. DCP- Discharge Planning Updated by [id number]: Jeannette Rosado on 02/07/20 11:[address] [facility] assessment with clinical faxed to [facility], awaiting approval. DCP- Discharge Planning Updated by [email or web address]: Isaías Webb on 02/03/20 2:[address] Patient Name: MARC CHADWICK Admission Status: ER Accout number: [id number] Admission Date: 01-28-2020 : 1945 Admission Diagnosis:ALTERED MENTAL STATUS, UNSPECIFIED Attending: MIGUEL GUERRERO Current LOS: 6 Anticipated DC Date: Planned Disposition: Primary Insurance: MEDICARE A & B Discharge Planning Comments: CM met with patient to complete initial dc planning assessment. CM educated patient on the CM role and verbal consent given by patient to complete assessment. CM verified patient's address, phone number, and emergency contact phone numbers. Patient lives at home with his roommate Ever Richmond ([phone]). Patient plans to discharge to a correction facility as his home is not a safe discharge option. DERRICK signed for [place], [place], and [place]. CM discussed availability of home health, rehab services, and medical equipment. Patient declined HH, rehab services, and DME. Discussions with the patient's roommates and brother revealed the following: (1) Ever Richmond (roommate - [phone]) - Stated that he cannot physically take care of the patient because his hips are "bad". Mr. Richmond stated that he will possibly have hip surgery on 24 February 2020 and further stated that he is legally blind. Mr. Richmond stated that he wants the patient to come home but it is not feasible at this time due to his inability to provide adequate skilled care. Mr. Richmond stated that a mutual friend, Mallika Richter ([phone]) did help out with medications and transfers and house chores but that her living situation within the household is not certain; (2) Mallika Richter stated that she cannot take care of both men and was only at the home on a temporary basis. She further expressed urgency in the patient contacting his brother, Rafi Chadwick [phone] for clarification of power of managing attorney; and (3) Rafi Debbie (brother) - stated that he strongly feels that correction facility would be appropriate and stated that he has medical power managing attorney. Mr. Rafi Farrellney feels that [facility] may be a more appropriate choice for SNF. Mr. Rafi Chadwick further stated that he would like to be informed either via email ( ) or voicemail the outcome of SNF choice. Transportation provider at discharge will be from accepting SNF. CM will continue to follow and will assist as needed with dc plans/needs. Leather Seasoner: Isaías Webb DCP- Discharge Planning Updated by [id number]: Inna Aviles on 01/29/20 8:[address] [facility] AT [phone] BUT UNABLE TO REACH BY PHONE, AND UNABLE TO LEAVE MESSAGE. CM WILL CONTINUE TO ASSIST WITH DC PLANNING/NEEDS. INNA AVILES MSN,RN,CM DCPIA - Discharge Planning Initial Assessment Updated by [email or web address]: Isaías Webb on 02/03/20 3:50 pm * Is the patient Alert and Oriented? Yes * How many steps to enter\\exit or inside your home? RAMP * PCP SUPRIYA YO * Pharmacy [facility] * Preadmission Environment Home with Family * ADLs Partial Dependent * Partial ADLs (Assistance needed) Ambulation Dressing Medication Management Transfers * Equipment Crutch Glucometer Walker Wheelchair * Other Equipment Electronic wheelchair as well * List name and contact numbers for known caregivers / representatives who currently or will assist patient after discharge: Rafi Chadwick (brother) - [phone] Ari Ange (friend) - [phone] Mallika Richter (friend) - [phone] Ever Richmond (roommate) - [phone] * Verbal permission to speak to the caregivers and representatives has been obtained from the patient. Yes * Community resources currently utilized None * Additional services required to return to the preadmission environment? Yes * Can the patient safely return to the preadmission environment? No * Has this patient been hospitalized within the prior 30 days at any hospital? No External Providers External Provider: [facility] Next Contact Date: Service Request Date: Service Type: Resolution: Reviewer: Comments: Coverage Notice Reviewer: [id number] - Isaías Webb Notice Issued Date-Time: 02/03/2020 14:31 Notice Type: Patient Choice Letter Notice Delivered To: Patient Relationship to Patient: Computed Tomography Technologist Name: Delivery Method: HAND - Hand Delivered Lakisha Days: Prior Verbal Notification: Recipient Understood Notice: Yes Recipient Signature: Yes Med Rec Note Co-signed by Attending: Coverage Notice Comment: Almaz Jacobs [place] Last DP export: 02/09/20 1:19 p Patient Name: MARC CHADWICK Page [id number] at 1603 All edits/amendments must be made on the electronic document DICTATION DATE: 02/09/201601 WILDLIFE CONSERVATIONIST: JANN 02/09/201601 RPT#: [id number] DC DATE: STATUS: ADM IN [facility] [address] [place] [address] END OF REPORT
--- NOTE | 2020-02-09 16:11 | MORECARE ---
CASE MANAGEMENT DISCHARGE SUMMARY PATIENT: MARC CHADWICK UNIT: [id number] ADM DATE: 01/28/20 AGE: 75 : 47 SEX: M ROOM/BED: D.2106 AUTHOR: ALCIDES,DOC PHYSICIAN: REFERRING PHYSICIAN: MIGUEL GUERRERO MD DATE OF SERVICE: 02/09/20 Discharge Plan Patient Name: MARC CHADWICK Facility: [facility]:[place] : 1945 Planned Disposition: Anticipated Discharge Date: Discharge Date: Expected LOS: Initial Reviewer: [id number] Initial Review Date: 01/28/2020 Generated: 02/09/20 5:10 pm Comments DCP- Discharge Planning Updated by [id number]: Jeannette Rosado on 02/09/20 3:[address] I received a call from patient's brother that he received paper work from [facility] and his brother is out of SNF days at 100% for Medicare and he is unable to pay the 20% up front as asked for. His brother states that he would like him to stay in a [place] contracted facility in [place] if possible. I called Lolita with the [place] and she gave me the [place] coordinator's name and number Jazmine Tomlinson - [phone]. I called that number and left my name on her voice mail to return my call. I spoke with Dianne at [facility] and clinical faxed. CM will continue to follow and assist with discharge planning/needs. DCP- Discharge Planning Updated by [id number]: Jeannette Rosado on 02/09/20 1:[address] I spoke with Kermit at [facility]. They have sent admission paperwork for brother to sign and are awaiting return of signed papers. CM will continue to follow and assist with discharge planning/needs. DCP- Discharge Planning Updated by [id number]: Jeannette Rosado on 02/09/20 7:[address] UPDATED CLINICAL FAXED TO [facility]. AWAITING ACCEPTANCE FROM [facility]. CM WILL CONTINUE TO FOLLOW AND ASSIST WITH DISCHARGE PLANNING/NEEDS. DCP- Discharge Planning Updated by [email or web address]: Jeannette Rosado on 02/07/20 1:[address] Received [place] approval for SNF placement, faxed to [facility]. DCP- Discharge Planning Updated by [id number]: Isaías Webb on 02/07/20 1:[address] Visit with patient this morning. Patient is not communicative. Phone call to ROYAL, Rafi Chadwick (Brother) - [phone]. Conversation indicated that patient should go to SNF at [facility] and that he has a POA on file there with Silvia (social media editor). Spoke with Kermit at [facility], clinical faxed. Will attempt placement and continue to follow and assist. DCP- Discharge Planning Updated by [email or web address]: Jeannette Rosado on 02/07/20 11:[address] A[facility]BEL assessment with clinical faxed to [facility], awaiting approval. DCP- Discharge Planning Updated by [id number]: Isaías Webb on 02/03/20 2:[address] Patient Name: MARC CHADWICK Admission Status: ER Accout number: [id number] Admission Date: 01-28-2020 : 1945 Admission Diagnosis:ALTERED MENTAL STATUS, UNSPECIFIED Attending: MIGUEL GUERREOR Current LOS: 6 Anticipated DC Date: Planned Disposition: Primary Insurance: MEDICARE A & B Discharge Planning Comments: CM met with patient to complete initial dc planning assessment. CM educated patient on the CM role and verbal consent given by patient to complete assessment. CM verified patient's address, phone number, and emergency contact phone numbers. Patient lives at home with his roommate Ever Richmond ([phone]). Patient plans to discharge to a senior care facility as his home is not a safe discharge option. DERRICK signed for [place], [place], and [place]. CM discussed availability of home health, rehab services, and medical equipment. Patient declined HH, rehab services, and DME. Discussions with the patient's roommates and brother revealed the following: (1) Ever Richmond (roommate - [phone]) - Stated that he cannot physically take care of the patient because his hips are "bad". Mr. Richmond stated that he will possibly have hip surgery on 24 February 2020 and further stated that he is legally blind. Mr. Richmond stated that he wants the patient to come home but it is not feasible at this time due to his inability to provide adequate skilled care. Mr. Richmond stated that a mutual friend, Mallika Richter ([phone]) did help out with medications and transfers and house chores but that her living situation within the household is not certain; (2) Mallika Richter stated that she cannot take care of both men and was only at the home on a temporary basis. She further expressed urgency in the patient contacting his brother, Rafi Chadwick ([phone] for clarification of power of employee benefits attorney; and (3) Rafi Chadwick (brother) - stated that he strongly feels that senior care facility would be appropriate and stated that he has medical power employee benefits attorney. Mr. Rafi Chadwick feels that [facility] may be a more appropriate choice for SNF. Mr. Rafi Chadwick further stated that he would like to be informed either via email ([email or web address]) or voicemail the outcome of SNF choice. Transportation provider at discharge will be from accepting SNF. CM will continue to follow and will assist as needed with dc plans/needs. Continuing Education Dean: Isaías Webb DCP- Discharge Planning Updated by [email or web address]: Inna Aviles on 01/29/20 8:[address] CM ATTEMTPED TO CALL [facility] AT [phone] BUT UNABLE TO REACH BY PHONE, AND UNABLE TO LEAVE MESSAGE. CM WILL CONTINUE TO ASSIST WITH DC PLANNING/NEEDS. INNA AVILES MSN,RN,CM DCPIA - Discharge Planning Initial Assessment Updated by [id number]: Isaías Webb on 02/03/20 3:50 pm * Is the patient Alert and Oriented? Yes * How many steps to enter\\exit or inside your home? RAMP * PCP SUPRIYA YO * Pharmacy [facility] on [facility] * Preadmission Environment Home with Family * ADLs Partial Dependent * Partial ADLs (Assistance needed) Ambulation Dressing Medication Management Transfers * Equipment Crutch Glucometer Walker Wheelchair * Other Equipment Electronic wheelchair as well * List name and contact numbers for known caregivers / representatives who currently or will assist patient after discharge: Rafi Chadwick (brother) - [phone] Ari Cassidy (friend) - [phone] Mallika Richter (friend) - [phone] Ever Richmond (roommate) - [phone] * Verbal permission to speak to the caregivers and representatives has been obtained from the patient. Yes * Community resources currently utilized None * Additional services required to return to the preadmission environment? Yes * Can the patient safely return to the preadmission environment? No * Has this patient been hospitalized within the prior 30 days at any hospital? No Coverage Notice Reviewer: [id number] Farooq Metz Webb Notice Issued Date-Time: 02/03/2020 14:31 Notice Type: Patient Choice Letter Notice Delivered To: Patient Relationship to Patient: Surgeon/President Name: Delivery Method: HAND - Hand Delivered Lakisha Days: Prior Verbal Notification: Recipient Understood Notice: Yes Recipient Signature: Yes Med Rec Note Co-signed by Attending: Coverage Notice Comment: Almaz Jacobs [place] Last DP export: 02/09/20 3:03 p Patient Name: MARC CHADWICK Page 04902 at 1611 All edits/amendments must be made on the electronic document DICTATION DATE: 02/09/20 161 KNOWLEDGE ENGINEER: JANN 02/09/20 161 RPT#: [id number] DC DATE: STATUS: ADM IN [facility] [address] [place] [address] END OF REPORT
[2020-02-09 16:50] VITALS: BP 164/71
--- NOTE | 2020-02-09 17:02 | NUR ---
OT NOTE: PT REQUIRED MAX A WITH UB HYGIENE TASKS . PT REQUIRED TOTAL A WITH LB HYGIENE TASKS. PT DID VERBALLY RESPOND TO QUESTIONS. [phone] THANK YOU,ALESSANDRA HARRELL
--- NOTE | 2020-02-09 19:00 | NUR ---
REPORT RECEIVED, WILL CONTINUE POC. PATIENT IS AAXO2, LYING IN BED. PATIENT TRYING TO MAKE A PHONE CALL AND UNAWARE OF WHERE HE IS. ASSISTED PATIENT WITH PHONE CALL AND REORIENTED PATIENT TO PLACE AND SITUATION. NO S/S OF DISTRESS OBSERVED, RR EVEN AND UNLABORED ON ROOM AIR. WOUND VAC TO RT BKA SITE, WORKING PROPERLY. PATIENT DENIES NEEDS AT THIS TIME. CL IN REACH, BED LOCKED AND LOWERED. WILL CTM.
[2020-02-09 21:26] VITALS: BP 128/56
--- NOTE | 2020-02-10 01:11 | NUR ---
I have reviewed this patient and I concur with the Shift Assessment completed by the Licensed Practical Nurse today this shift.
[2020-02-10 04:02] VITALS: BP 127/57
[2020-02-10 06:48] LABS: BASOPHILS 0.2 % (0-2); HEMOGLOBIN 8.3 g/dL (13.5-17.5); IMMATURE GRANULOCYTES 0.2 % (0-5); LYMPHOCYTES 11.6 % (15-50); MCH 31.6 pg (26.0-34.0); MCHC 30.7 g/dL (31.0-37.0); MCV 102.7 fL (80.0-100.0); MEAN PLATELET VOLUME 9.8 fL (7.4-10.4); MONOCYTES 12.4 % (2-11); NEUTROPHILS 71.6 % (40-80); PLATELET COUNT 159 10x3/uL (130-400); RBC 2.63 10x6/uL (4.20-6.10); RDW 14.9 % (11.5-14.5); WBC 6.2 10x3/uL (4.8-10.8)
[2020-02-10 06:53] LABS: CALCIUM 8.8 mg/dL (8.5-10.1); CARBON DIOXIDE 26.3 mmol/L (21.0-32.0); POTASSIUM - SERUM 4.3 mmol/L (3.5-5.1); VANCOMYCIN - RANDOM 16.5 ug/mL (10.0-20.0)
[2020-02-10 06:55] LABS: CREATININE - SERUM 8.6 mg/dL (0.6-1.3)
[2020-02-10 07:58] VITALS: BP 131/54
--- NOTE | 2020-02-10 08:16 | NUR ---
AM ROUNDING DONE WITH PATIENT ON ROOM AIR AT THIS TIME. SAT IS 96%. RESE. RIGHT ARM WITH AVF. LEFT FA PIV SEEN WITH SALINE LOCK. LEFT AKA AND RIGHT BKA SEEN WITH WOUND VAC. DENIES ANY NEEDS AT THIS TIME.
--- NOTE | 2020-02-10 08:30 | NUR ---
TO DIALYSIS VIA BED.
--- NOTE | 2020-02-10 12:08 | NUR ---
BACK FROM DIALYSIS.
--- NOTE | 2020-02-10 12:42 | MORECARE ---
CASE MANAGEMENT DISCHARGE SUMMARY PATIENT: MARC CHADWICK UNIT: [id number] ADM DATE: 01/28/20 AGE: 75 : 47 SEX: M ROOM/BED: D.2106 AUTHOR: ALCIDES,DOC PHYSICIAN: REFERRING PHYSICIAN: MIGUEL GUERRERO MD DATE OF SERVICE: 02/10/20 Discharge Plan Patient Name: MARC CHADWICK Facility: [facility]:[place] : 1945 Planned Disposition: Anticipated Discharge Date: Discharge Date: Expected LOS: Initial Reviewer: [email or web address] Initial Review Date: 01/28/2020 Generated: 02/10/20 1:42 pm Comments DCP- Discharge Planning Updated by [email or web address]: Jeannette Rosado on 02/09/20 3:[address] I received a call from patient's brother that he received paper work from [facility] and his brother is out of SNF days at 100% for Medicare and he is unable to pay the 20% up front as asked for. His brother states that he would like him to stay in a [place] contracted facility in [place] if possible. I called Lolita with the [place] and she gave me the [place] coordinator's name and number Jazmine Tomlinson - [phone]. I called that number and left my name on her voice mail to return my call. I spoke with Dianne at [facility] and clinical faxed. CM will continue to follow and assist with discharge planning/needs. DCP- Discharge Planning Updated by [id number]: Jeannette Rosado on 02/09/20 1:[address] I spoke with Kermit at [facility]. They have sent admission paperwork for brother to sign and are awaiting return of signed papers. CM will continue to follow and assist with discharge planning/needs. DCP- Discharge Planning Updated by [id number]: Jeannette Rosado on 02/09/20 7:[address] UPDATED CLINICAL FAXED TO [facility]. AWAITING ACCEPTANCE FROM [facility]. CM WILL CONTINUE TO FOLLOW AND ASSIST WITH DISCHARGE PLANNING/NEEDS. DCP- Discharge Planning Updated by [id number]: Jeannette Rosado on 02/07/20 1:[address] Received [place] approval for SNF placement, faxed to [facility]. DCP- Discharge Planning Updated by [id number]: Isaías Webb on 02/07/20 1:[address] Visit with patient this morning. Patient is not communicative. Phone call to ROYAL, Rafi Chadwick (Brother) - [phone]. Conversation indicated that patient should go to SNF at [facility] and that he has a POA on file there with Silvia (social work program coordinator). Spoke with Kermit at [facility], clinical faxed. Will attempt placement and continue to follow and assist. DCP- Discharge Planning Updated by [id number]: Jeannette Rosado on 02/07/20 11:[address] ANABEL assessment with clinical faxed to [facility], awaiting approval. DCP- Discharge Planning Updated by [id number]: Isaías Webb on 02/03/20 2:[address] Patient Name: MARC CHADWICK Admission Status: ER Accout number: [id number] Admission Date: 01-28-2020 : 1945 Admission Diagnosis:ALTERED MENTAL STATUS, UNSPECIFIED Attending: MIGUEL GUERRERO Current LOS: 6 Anticipated DC Date: Planned Disposition: Primary Insurance: MEDICARE A & B Discharge Planning Comments: CM met with patient to complete initial dc planning assessment. CM educated patient on the CM role and verbal consent given by patient to complete assessment. CM verified patient's address, phone number, and emergency contact phone numbers. Patient lives at home with his roommate Ever Richmond ([phone]). Patient plans to discharge to a nursing home facility as his home is not a safe discharge option. DERRICK signed for [facility], [place], and [place]. CM discussed availability of home health, rehab services, and medical equipment. Patient declined HH, rehab services, and DME. Discussions with the patient's roommates and brother revealed the following: (1) Ever Richmond (roommate - [phone]) - Stated that he cannot physically take care of the patient because his hips are "bad". Mr. Richmond stated that he will possibly have hip surgery on 24 February 2020 and further stated that he is legally blind. Mr. Richmond stated that he wants the patient to come home but it is not feasible at this time due to his inability to provide adequate skilled care. Mr. Richmond stated that a mutual friend, Mallika Richter ([phone]) did help out with medications and transfers and house chores but that her living situation within the household is not certain; (2) Mallika Richter stated that she cannot take care of both men and was only at the home on a temporary basis. She further expressed urgency in the patient contacting his brother, Rafi Chadwick [phone] for clarification of power of document review attorney; and (3) Rafi Chadwick (brother) - stated that he strongly feels that nursing home facility would be appropriate and stated that he has medical power document review attorney. Mr. Rafi Chadwick feels that [facility] may be a more appropriate choice for SNF. Mr. Rafi Chadwick further stated that he would like to be informed either via email ([email or web address]) or voicemail the outcome of SNF choice. Transportation provider at discharge will be from accepting SNF. CM will continue to follow and will assist as needed with dc plans/needs. Epidemiology Investigator: Isaías Webb DCP- Discharge Planning Updated by [email or web address]: Inna Aviles on 01/29/20 8:[address] CM ATTEMTPED TO CALL [facility] AT [phone] BUT UNABLE TO REACH BY PHONE, AND UNABLE TO LEAVE MESSAGE. CM WILL CONTINUE TO ASSIST WITH DC PLANNING/NEEDS. INNA AVILES MSN,RN,CM DCPIA - Discharge Planning Initial Assessment Updated by [email or web address]: Isaías Webb on 02/03/20 3:50 pm * Is the patient Alert and Oriented? Yes * How many steps to enter\\exit or inside your home? RAMP * PCP SUPRIYA YO * Pharmacy [facility] * Preadmission Environment Home with Family * ADLs Partial Dependent * Partial ADLs (Assistance needed) Ambulation Dressing Medication Management Transfers * Equipment Crutch Glucometer Walker Wheelchair * Other Equipment Electronic wheelchair as well * List name and contact numbers for known caregivers / representatives who currently or will assist patient after discharge: Rafi Chadwick (brother) - [phone] Ari Cassidy (friend) - [phone] Mallika Richter (friend) - [phone] Ever Richmond (roommate) - [phone] * Verbal permission to speak to the caregivers and representatives has been obtained from the patient. Yes * Community resources currently utilized None * Additional services required to return to the preadmission environment? Yes * Can the patient safely return to the preadmission environment? No * Has this patient been hospitalized within the prior 30 days at any hospital? No External Providers External Provider: [facility]am[facility] Next Contact Date: Service Request Date: Service Type: Resolution: Reviewer: Comments: [facility] Next Contact Date: Service Request Date: Service Type: Resolution: Reviewer: Comments: External Provider: [facility] Next Contact Date: Service Request Date: Service Type: Resolution: Reviewer: Comments: [facility] Next Contact Date: Service Request Date: Service Type: Resolution: Reviewer: Comments: 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 [address] [place] [address] END OF REPORT
--- NOTE | 2020-02-10 13:17 | NUR ---
OT NOTE: PT ALERT IN BED, WATCHING TV. ASSISTED WITH BATHING. PT WAS ABLE TO PERFORM UPPER BODY BATHING WITH SET UP AND CONTINUAL VERBAL CUES. CONT TO REPORT SEVERE PAIN IN R LE. BED MOB WITH MOD ASSIST; UNABLE TO TOLERATE EOB SITTING DUE TO PAIN. RICHELLE PERERA, OTR/L [phone]
--- NOTE | 2020-02-10 13:24 | MORECARE ---
CASE MANAGEMENT DISCHARGE SUMMARY PATIENT: MARC CHADWICK UNIT: [id number] ADM DATE: 01/28/20 AGE: 75 : 47 SEX: M ROOM/BED: D.2106 AUTHOR: ALCIDES,DOC PHYSICIAN: REFERRING PHYSICIAN: MIGUEL GUERRERO MD DATE OF SERVICE: 02/10/20 Discharge Plan Patient Name: MARC CHADWICK Facility: [facility]:[place] : 1945 Planned Disposition: Anticipated Discharge Date: Discharge Date: Expected LOS: Initial Reviewer: [email or web address] Initial Review Date: 01/28/2020 Generated: 02/10/20 2:24 pm Comments DCP- Discharge Planning Updated by [email or web address]: Jeannette Rosado on 02/09/20 3:[address] I received a call from patient's brother that he received paper work from [facility] and his brother is out of SNF days at 100% for Medicare and he is unable to pay the 20% up front as asked for. His brother states that he would like him to stay in a [place] contracted facility in [place] if possible. I called Lolita with the [place] and she gave me the [place] coordinator's name and number Jazmine Tomlinson - [phone]. I called that number and left my name on her voice mail to return my call. I spoke with Dianne at [facility] and clinical faxed. CM will continue to follow and assist with discharge planning/needs. DCP- Discharge Planning Updated by [email or web address]: Jeannette Rosado on 02/09/20 1:[address] I spoke with Kermit at [facility]. They have sent admission paperwork for brother to sign and are awaiting return of signed papers. CM will continue to follow and assist with discharge planning/needs. DCP- Discharge Planning Updated by [id number]: Jeannette Rosado on 02/09/20 7:[address] UPDATED CLINICAL FAXED TO [facility]. AWAITING ACCEPTANCE FROM [facility]. CM WILL CONTINUE TO FOLLOW AND ASSIST WITH DISCHARGE PLANNING/NEEDS. DCP- Discharge Planning Updated by [email or web address]: Jeannette Rosado on 02/07/20 1:[address] Received [place] approval for SNF placement, faxed to [facility]. DCP- Discharge Planning Updated by [email or web address]: Isaías Webb on 02/07/20 1:[address] Visit with patient this morning. Patient is not communicative. Phone call to ROYAL, Rafi Chadwick (Brother) - [phone]. Conversation indicated that patient should go to SNF at [facility] and that he has a POA on file there with Silvia (social insurance administrator). Spoke with Kermit at [facility], clinical faxed. Will attempt placement and continue to follow and assist. DCP- Discharge Planning Updated by [email or web address]: Jeannette Rosado on 02/07/20 11:[address] ANABEL assessment with clinical faxed to [employer], awaiting approval. DCP- Discharge Planning Updated by [id number]: Isaías Webb on 02/03/20 2:[address] Patient Name: MRAC CHADWICK Admission Status: ER Accout number: [id number] Admission Date: 01-28-2020 : 1945 Admission Diagnosis:ALTERED MENTAL STATUS, UNSPECIFIED Attending: MIGUEL GUERRERO Current LOS: 6 Anticipated DC Date: Planned Disposition: Primary Insurance: MEDICARE A & B Discharge Planning Comments: CM met with patient to complete initial dc planning assessment. CM educated patient on the CM role and verbal consent given by patient to complete assessment. CM verified patient's address, phone number, and emergency contact phone numbers. Patient lives at home with his roommate Ever Richmond ([phone]). Patient plans to discharge to a [facility] facility as his home is not a safe discharge option. DERRICK signed for [place], [place], and [place]. CM discussed availability of home health, rehab services, and medical equipment. Patient declined HH, rehab services, and DME. Discussions with the patient's roommates and brother revealed the following: (1) Ever Richmond (roommate - [phone]) - Stated that he cannot physically take care of the patient because his hips are "bad". Mr. Richmond stated that he will possibly have hip surgery on 24 February 2020 and further stated that he is legally blind. Mr. Richmond stated that he wants the patient to come home but it is not feasible at this time due to his inability to provide adequate skilled care. Mr. Richmond stated that a mutual friend, Mallika Richter ([phone]) did help out with medications and transfers and house chores but that her living situation within the household is not certain; (2) Mallika Richter stated that she cannot take care of both men and was only at the home on a temporary basis. She further expressed urgency in the patient contacting his brother, Rafi Chadwick ([phone] for clarification of power of assistant prosecuting attorney; and (3) Rafi Chadwick (brother) - stated that he strongly feels that mcc facility would be appropriate and stated that he has medical power assistant prosecuting attorney. Mr. Rafi Chadwick feels that [facility] may be a more appropriate choice for SNF. Mr. Rafi Chadwick further stated that he would like to be informed either via email ( ) or voicemail the outcome of SNF choice. Transportation provider at discharge will be from accepting SNF. CM will continue to follow and will assist as needed with dc plans/needs. Social Welfare Administrator: Isaías Webb DCP- Discharge Planning Updated by [id number]: Inna Aviles on 01/29/20 8:[address] CM ATTEMTPED TO CALL [facility] AT [phone] BUT UNABLE TO REACH BY PHONE, AND UNABLE TO LEAVE MESSAGE. CM WILL CONTINUE TO ASSIST WITH DC PLANNING/NEEDS. INNA AVILES MSN,RN,CM DCPIA - Discharge Planning Initial Assessment Updated by [email or web address]: Isaías Webb on 02/03/20 3:50 pm * Is the patient Alert and Oriented? Yes * How many steps to enter\\exit or inside your home? RAMP * PCP SUPRIYA YO * Pharmacy [facility] * Preadmission Environment Home with Family * ADLs Partial Dependent * Partial ADLs (Assistance needed) Ambulation Dressing Medication Management Transfers * Equipment Crutch Glucometer Walker Wheelchair * Other Equipment Electronic wheelchair as well * List name and contact numbers for known caregivers / representatives who currently or will assist patient after discharge: Rafi Chadwick (brother) - [phone] Ari Cassidy (friend) - [phone] Mallika Richter (friend) - [phone] Ever Richmond (roommate) - [phone] * Verbal permission to speak to the caregivers and representatives has been obtained from the patient. Yes * Community resources currently utilized None * Additional services required to return to the preadmission environment? Yes * Can the patient safely return to the preadmission environment? No * Has this patient been hospitalized within the prior 30 days at any hospital? 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
--- NOTE | 2020-02-10 13:35 | MORECARE ---
CASE MANAGEMENT DISCHARGE SUMMARY PATIENT: MARC CHADWICK UNIT: [id number] ADM DATE: 01/28/20 AGE: 75 : 47 SEX: M ROOM/BED: D.2106 AUTHOR: ALCIDES,DOC PHYSICIAN: REFERRING PHYSICIAN: MIGUEL GUERRERO MD DATE OF SERVICE: 02/10/20 Discharge Plan Patient Name: MARC CHADWICK Facility: [facility]:[place] : 1945 Planned Disposition: Anticipated Discharge Date: Discharge Date: Expected LOS: Initial Reviewer: [email or web address] Initial Review Date: 01/28/2020 Generated: 02/10/20 2:34 pm Comments DCP- Discharge Planning Updated by [email or web address]: Jeannette Rosado on 02/09/20 3:[address] I received a call from patient's brother that he received paper work from [facility] and his brother is out of SNF days at 100% for Medicare and he is unable to pay the 20% up front as asked for. His brother states that he would like him to stay in a [place] contracted facility in [place] if possible. I called Lolita with the [place] and she gave me the [place] coordinator's name and number Jazmine Tomlinson - [phone]. I called that number and left my name on her voice mail to return my call. I spoke with Dianne at [facility] and clinical faxed. CM will continue to follow and assist with discharge planning/needs. DCP- Discharge Planning Updated by [id number]: Jeannette Rosado on 02/09/20 1:[address] I spoke with Kermit at [facility]. They have sent admission paperwork for brother to sign and are awaiting return of signed papers. CM will continue to follow and assist with discharge planning/needs. DCP- Discharge Planning Updated by [id number]: Jeannette Rosado on 02/09/20 7:[address] UPDATED CLINICAL FAXED TO [facility]. AWAITING ACCEPTANCE FROM [facility]. CM WILL CONTINUE TO FOLLOW AND ASSIST WITH DISCHARGE PLANNING/NEEDS. DCP- Discharge Planning Updated by [email or web address]: Jeannette Rosado on 02/07/20 1:[address] Received [place] approval for SNF placement, faxed to [facility]. DCP- Discharge Planning Updated by [id number]: Isaías Webb on 02/07/20 1:[address] Visit with patient this morning. Patient is not communicative. Phone call to ROYAL, Rafi Chadwick (Brother) - [phone]. Conversation indicated that patient should go to SNF at [facility] and that he has a POA on file there with Silvia (psych social worker). Spoke with Kermit at [facility], clinical faxed. Will attempt placement and continue to follow and assist. DCP- Discharge Planning Updated by [id number]: Jeannette Rosado on 02/07/20 11:[address] ANABEL assessment with clinical faxed to [employer], awaiting approval. DCP- Discharge Planning Updated by [id number]: Isaías Webb on 02/03/20 2:[address] Patient Name: MARC CHADWICK Admission Status: ER Accout number: [id number] Admission Date: 01-28-2020 : 1945 Admission Diagnosis:ALTERED MENTAL STATUS, UNSPECIFIED Attending: MIGUEL GUERRERO Current LOS: 6 Anticipated DC Date: Planned Disposition: Primary Insurance: MEDICARE A & B Discharge Planning Comments: CM met with patient to complete initial dc planning assessment. CM educated patient on the CM role and verbal consent given by patient to complete assessment. CM verified patient's address, phone number, and emergency contact phone numbers. Patient lives at home with his roommate Ever Richmond ([phone]). Patient plans to discharge to a residential facility as his home is not a safe discharge option. DERRICK signed for [place], [place], and [place]. CM discussed availability of home health, rehab services, and medical equipment. Patient declined HH, rehab services, and DME. Discussions with the patient's roommates and brother revealed the following: (1) Ever Richmond (roommate - [phone]) - Stated that he cannot physically take care of the patient because his hips are "bad". Mr. Richmond stated that he will possibly have hip surgery on 24 February 2020 and further stated that he is legally blind. Mr. Richmond stated that he wants the patient to come home but it is not feasible at this time due to his inability to provide adequate skilled care. Mr. Richmond stated that a mutual friend, Mallika Richter ([phone]) did help out with medications and transfers and house chores but that her living situation within the household is not certain; (2) Mallika Richter stated that she cannot take care of both men and was only at the home on a temporary basis. She further expressed urgency in the patient contacting his brother, Rafi Chadwick ([phone] for clarification of power of prosecuting attorney; and (3) Rafi Chadwick (brother) - stated that he strongly feels that residential facility would be appropriate and stated that he has medical power prosecuting attorney. Mr. Rafi Chadwick feels that [facility] may be a more appropriate choice for SNF. Mr. Rafi Chadwick further stated that he would like to be informed either via email ([email or web address]) or voicemail the outcome of SNF choice. Transportation provider at discharge will be from accepting SNF. CM will continue to follow and will assist as needed with dc plans/needs. Fish Flipper: Isaías Webb DCP- Discharge Planning Updated by [email or web address]: Inna Aviles on 01/29/20 8:[address] CM ATTEMTPED TO CALL [facility] AT [phone] BUT UNABLE TO REACH BY PHONE, AND UNABLE TO LEAVE MESSAGE. CM WILL CONTINUE TO ASSIST WITH DC PLANNING/NEEDS. INNA AVILES MSN,RN,CM DCPIA - Discharge Planning Initial Assessment Updated by [id number]: Isaías Webb on 02/03/20 3:50 pm * Is the patient Alert and Oriented? Yes * How many steps to enter\\exit or inside your home? RAMP * PCP SUPRIYA YO * Pharmacy [facility] * Preadmission Environment Home with Family * ADLs Partial Dependent * Partial ADLs (Assistance needed) Ambulation Dressing Medication Management Transfers * Equipment Crutch Glucometer Walker Wheelchair * Other Equipment Electronic wheelchair as well * List name and contact numbers for known caregivers / representatives who currently or will assist patient after discharge: Rafi Chadwick (brother) - [phone] Ari Cassidy (friend) - [phone] Mallika Richter (friend) - [phone] Ever Richmond (roommate) - [phone] * Verbal permission to speak to the caregivers and representatives has been obtained from the patient. Yes * Community resources currently utilized None * Additional services required to return to the preadmission environment? Yes * Can the patient safely return to the preadmission environment? No * Has this patient been hospitalized within the prior 30 days at any hospital? No External Providers External Provider: [facility] Next Contact Date: Service Request Date: Service Type: Resolution: Reviewer: Comments: Coverage Notice Reviewer: [email or web address] Farooq Webb Notice Issued Date-Time: 02/03/2020 14:31 Notice Type: Patient Choice Letter Notice Delivered To: Patient Relationship to Patient: Surplus Property Disposal Agent Name: Delivery Method: HAND - Hand Delivered Lakisha Days: Prior Verbal Notification: Recipient Understood Notice: Yes Recipient Signature: Yes Med Rec Note Co-signed by Attending: Coverage Notice Comment: Almaz Jacobs [place] Last DP export: 02/10/20 12:25 p Patient Name: MARC CHADWICK Page 31154 at 1335 All edits/amendments must be made on the electronic document DICTATION DATE: 02/10/20 1334 BUSINESS ECONOMIST: JANN 02/10/20 1334 RPT#: [id number] DC DATE: STATUS: ADM IN [facility] [address] [place] [address] END OF REPORT
--- NOTE | 2020-02-10 13:44 | MORECARE ---
CASE MANAGEMENT DISCHARGE SUMMARY PATIENT: MARC CHADWICK UNIT: [id number] ADM DATE: 01/28/20 AGE: 75 : [birth year] SEX: M ROOM/BED: D.2106 AUTHOR: ALCIDES,DOC PHYSICIAN: REFERRING PHYSICIAN: MIGUEL GUERRERO MD DATE OF SERVICE: 02/10/20 Discharge Plan Patient Name: MARC CHADWICK Facility: [facility]:[place] : 1945 Planned Disposition: Anticipated Discharge Date: Discharge Date: Expected LOS: Initial Reviewer: [email or web address] Initial Review Date: 01/28/2020 Generated: 02/10/20 2:44 pm Comments DCP- Discharge Planning Updated by [email or web address]: Jeannette Rosado on 02/10/20 12:[address] Dianne from [facility] called and states [facility] and [facility] have denied admission due to behavioral issues in the past at [facility]. [facility] is no longer VA contracted. I called [facility], they do not have VA contract. I called [facility] and they do have a VA contract. CM faxed clinical to [facility] at [phone]. DCP- Discharge Planning Updated by [id number]: Jeannette Rosado on 02/09/20 3:[address] I received a call from patient's brother that he received paper work from [facility] and his brother is out of SNF days at 100% for Medicare and he is unable to pay the 20% up front as asked for. His brother states that he would like him to stay in a VA contracted facility in [place] if possible. I called Lolita with the [place] and she gave me the [place] coordinator's name and number Jazmine Tomlinson - [phone]. I called that number and left my name on her voice mail to return my call. I spoke with Dianne at [facility] and clinical faxed. CM will continue to follow and assist with discharge planning/needs. DCP- Discharge Planning Updated by [email or web address]: Jeannette Rosado on 02/09/20 1:[address] I spoke with Kermit at [facility]. They have sent admission paperwork for brother to sign and are awaiting return of signed papers. CM will continue to follow and assist with discharge planning/needs. DCP- Discharge Planning Updated by [id number]: Jeannette Rosado on 02/09/20 7:[address] UPDATED CLINICAL FAXED TO [facility]. AWAITING ACCEPTANCE FROM [facility]. CM WILL CONTINUE TO FOLLOW AND ASSIST WITH DISCHARGE PLANNING/NEEDS. DCP- Discharge Planning Updated by [id number]: Jeannette Rosado on 02/07/20 1:[address] Received [facility]EL approval for SNF placement, faxed to [facility]. DCP- Discharge Planning Updated by [id number]: Isaías Webb on 02/07/20 1:[address] Visit with patient this morning. Patient is not communicative. Phone call to Rafi PAIGE Childress (Brother) - [phone]. Conversation indicated that patient should go to SNF at [facility] and that he has a POA on file there with Silvia (social work lecturer). Spoke with Kerimt at [facility], clinical faxed. Will attempt placement and continue to follow and assist. DCP- Discharge Planning Updated by [id number]: Jeannette Rosado on 02/07/20 11:[address] ANABEL assessment with clinical faxed to [facility], awaiting approval. DCP- Discharge Planning Updated by [email or web address]: Isaías Webb on 02/03/20 2:[address] Patient Name: MARC CHADWICK Admission Status: ER Accout number: [id number] Admission Date: 01-28-2020 : 1945 Admission Diagnosis:ALTERED MENTAL STATUS, UNSPECIFIED Attending: MIGUEL GUERRERO Current LOS: 6 Anticipated DC Date: Planned Disposition: Primary Insurance: MEDICARE A & B Discharge Planning Comments: CM met with patient to complete initial dc planning assessment. CM educated patient on the CM role and verbal consent given by patient to complete assessment. CM verified patient's address, phone number, and emergency contact phone numbers. Patient lives at home with his roommate Ever Richmond ([phone]). Patient plans to discharge to a assisted facility as his home is not a safe discharge option. DERRICK signed for [facility], and [facility]. CM discussed availability of home health, rehab services, and medical equipment. Patient declined HH, rehab services, and DME. Discussions with the patient's roommates and brother revealed the following: (1) Ever Richmond (roommate - [phone]) - Stated that he cannot physically take care of the patient because his hips are "bad". Mr. Richmond stated that he will possibly have hip surgery on 24 February 2020 and further stated that he is legally blind. Mr. Richmond stated that he wants the patient to come home but it is not feasible at this time due to his inability to provide adequate skilled care. Mr. Richmond stated that a mutual friend, Mallika Richter ([phone]) did help out with medications and transfers and house chores but that her living situation within the household is not certain; (2) Mallika Richter stated that she cannot take care of both men and was only at the home on a temporary basis. She further expressed urgency in the patient contacting his brother, Rafi Chadwick ([phone] for clarification of power of city attorney; and (3) Rafi Chadwick (brother) - stated that he strongly feels that assisted facility would be appropriate and stated that he has medical power city attorney. Mr. Rafi Chadwick feels that [facility] may be a more appropriate choice for SNF. Mr. Rafi Chadwick further stated that he would like to be informed either via email [email or web address]) or voicemail the outcome of SNF choice. Transportation provider at discharge will be from accepting SNF. CM will continue to follow and will assist as needed with dc plans/needs. Automatic Quilling Machine Operator: Isaías Webb DCP- Discharge Planning Updated by [email or web address]: Inna Aviles on 01/29/20 8:[address] CM ATTEMTPED TO CALL [employer] AT [phone] BUT UNABLE TO REACH BY PHONE, AND UNABLE TO LEAVE MESSAGE. CM WILL CONTINUE TO ASSIST WITH DC PLANNING/NEEDS. INNA AVILES MSN,RN,CM DCPIA - Discharge Planning Initial Assessment Updated by [email or web address]: Isaías Webb on 02/03/20 3:50 pm * Is the patient Alert and Oriented? Yes * How many steps to enter\\exit or inside your home? RAMP * PCP SUPRIYA YO * Pharmacy [facility] * Preadmission Environment Home with Family * ADLs Partial Dependent * Partial ADLs (Assistance needed) Ambulation Dressing Medication Management Transfers * Equipment Crutch Glucometer Walker Wheelchair * Other Equipment Electronic wheelchair as well * List name and contact numbers for known caregivers / representatives who currently or will assist patient after discharge: Rafi Chadwick (brother) - [phone] Ari Cassidy (friend) - [phone] Mallika Richter (friend) - [phone] Ever Richmond (roommate) - [phone] * Verbal permission to speak to the caregivers and representatives has been obtained from the patient. Yes * Community resources currently utilized None * Additional services required to return to the preadmission environment? Yes * Can the patient safely return to the preadmission environment? No * Has this patient been hospitalized within the prior 30 days at any hospital? No Coverage Notice Reviewer: [id number] Farooq Webb Notice Issued Date-Time: 02/03/2020 14:31 Notice Type: Patient Choice Letter Notice Delivered To: Patient Relationship to Patient: Sr. Director Name: Delivery Method: HAND - Hand Delivered Lakisha Days: Prior Verbal Notification: Recipient Understood Notice: Yes Recipient Signature: Yes Med Rec Note Co-signed by Attending: Coverage Notice Comment: Almaz Jacobs [place] Last DP export: 02/10/20 12:35 p Patient Name: MARC CHADWICK Page [id number] at 1344 All edits/amendments must be made on the electronic document DICTATION DATE: 02/10/20 1344 OIL AND GAS SPECIALIST: JANN 02/10/20 1344 RPT#: [id number] DC DATE: STATUS: ADM IN [facility] [address] [place] [address] END OF REPORT
--- NOTE | 2020-02-10 14:04 | MORECARE ---
CASE MANAGEMENT DISCHARGE SUMMARY PATIENT: MARC CHADWICK UNIT: [id number] ADM DATE: 01/28/20 AGE: 75 : 47 SEX: M ROOM/BED: D.2106 AUTHOR: ALCIDES,DOC PHYSICIAN: REFERRING PHYSICIAN: MIGUEL GUERRERO MD DATE OF SERVICE: 02/10/20 Discharge Plan Patient Name: MARC CHADWICK Facility: [facility]:[place] : 1945 Planned Disposition: Anticipated Discharge Date: Discharge Date: Expected LOS: Initial Reviewer: [email or web address] Initial Review Date: 01/28/2020 Generated: 02/10/20 3:03 pm Comments DCP- Discharge Planning Updated by [email or web address]: Jeannette Rosado on 02/10/20 12:[address] Dianne from [facility] called and states [facility] and [facility] have denied admission due to behavioral issues in the past at [facility]. [facility] is no longer VA contracted. I called [facility], they do not have VA contract. I called [facility] and they do have a VA contract. CM faxed clinical to [facility] at [phone]. DCP- Discharge Planning Updated by [id number]: Jeannette Rosado on 02/09/20 3:[address] I received a call from patient's brother that he received paper work from [facility] and his brother is out of SNF days at 100% for Medicare and he is unable to pay the 20% up front as asked for. His brother states that he would like him to stay in a VA contracted facility in [place] if possible. I called Lolita with the [place] and she gave me the [place] coordinator's name and number Jazmine Tomlinson - [phone]. I called that number and left my name on her voice mail to return my call. I spoke with Dianne at [facility] and clinical faxed. CM will continue to follow and assist with discharge planning/needs. DCP- Discharge Planning Updated by [id number]: Jeannette Rosado on 02/09/20 1:[address] I spoke with Kermit at [facility]. They have sent admission paperwork for brother to sign and are awaiting return of signed papers. CM will continue to follow and assist with discharge planning/needs. DCP- Discharge Planning Updated by [id number]: Jeannette Rosado on 02/09/20 7:[address] UPDATED CLINICAL FAXED TO [facility]. AWAITING ACCEPTANCE FROM [facility]. CM WILL CONTINUE TO FOLLOW AND ASSIST WITH DISCHARGE PLANNING/NEEDS. DCP- Discharge Planning Updated by [id number]: Jeannette Rosado on 02/07/20 1:[address] Received ANABEL approval for SNF placement, faxed to [facility]. DCP- Discharge Planning Updated by [id number]: Isaías Webb on 02/07/20 1:[address] Visit with patient this morning. Patient is not communicative. Phone call to Rafi PAIGE Faulkner (Brother) - [phone]. Conversation indicated that patient should go to SNF at [facility] and that he has a POA on file there with Silvia (director of social media marketing). Spoke with Kermit at [facility], clinical faxed. Will attempt placement and continue to follow and assist. DCP- Discharge Planning Updated by [id number]: Jeannette Rosado on 02/07/20 11:[address] ANABEL assessment with clinical faxed to [facility], awaiting approval. DCP- Discharge Planning Updated by [email or web address]: Isaías Webb on 02/03/20 2:[address] Patient Name: MARC CHADWICK Admission Status: ER Accout number: [id number] Admission Date: 01-28-2020 : 1945 Admission Diagnosis:ALTERED MENTAL STATUS, UNSPECIFIED Attending: MIGUEL GUERRERO Current LOS: 6 Anticipated DC Date: Planned Disposition: Primary Insurance: MEDICARE A & B Discharge Planning Comments: CM met with patient to complete initial dc planning assessment. CM educated patient on the CM role and verbal consent given by patient to complete assessment. CM verified patient's address, phone number, and emergency contact phone numbers. Patient lives at home with his roommate Ever Richmond ([phone]). Patient plans to discharge to a usp facility as his home is not a safe discharge option. DERRICK signed for [place], [facility], and [facility]. CM discussed availability of home health, rehab services, and medical equipment. Patient declined HH, rehab services, and DME. Discussions with the patient's roommates and brother revealed the following: (1) Ever Richmond (roommate - [phone]) - Stated that he cannot physically take care of the patient because his hips are "bad". Mr. Richmond stated that he will possibly have hip surgery on 24 February 2020 and further stated that he is legally blind. Mr. Richmond stated that he wants the patient to come home but it is not feasible at this time due to his inability to provide adequate skilled care. Mr. Richmond stated that a mutual friend, Mallika Richter ([phone]) did help out with medications and transfers and house chores but that her living situation within the household is not certain; (2) Mallika Richter stated that she cannot take care of both men and was only at the home on a temporary basis. She further expressed urgency in the patient contacting his brother, Rafi Chadwick ([phone] for clarification of power of staff attorney; and (3) Rafi Chadwick (brother) - stated that he strongly feels that usp facility would be appropriate and stated that he has medical power staff attorney. Mr. Rafi Chadwick feels that [facility] may be a more appropriate choice for SNF. Mr. Rafi Chadwick further stated that he would like to be informed either via email [email or web address]) or voicemail the outcome of SNF choice. Transportation provider at discharge will be from accepting SNF. CM will continue to follow and will assist as needed with dc plans/needs. Covering Machine Operator Helper: Isaías Webb DCP- Discharge Planning Updated by [id number]: Inna Aviles on 01/29/20 8:[address] CM ATTEMTPED TO CALL [employer] AT [phone] BUT UNABLE TO REACH BY PHONE, AND UNABLE TO LEAVE MESSAGE. CM WILL CONTINUE TO ASSIST WITH DC PLANNING/NEEDS. INNA AVILES MSN,RN,CM DCPIA - Discharge Planning Initial Assessment Updated by [id number]: Isaías Webb on 02/03/20 3:50 pm * Is the patient Alert and Oriented? Yes * How many steps to enter\\exit or inside your home? RAMP * PCP SUPRIYA YO * Pharmacy [facility] * Preadmission Environment Home with Family * ADLs Partial Dependent * Partial ADLs (Assistance needed) Ambulation Dressing Medication Management Transfers * Equipment Crutch Glucometer Walker Wheelchair * Other Equipment Electronic wheelchair as well * List name and contact numbers for known caregivers / representatives who currently or will assist patient after discharge: Rafi Chadwick (brother) - [phone] Ari Cassidy (friend) - [phone] Mallika Richter (friend) - [phone] Ever Richmond (roommate) - [phone] * Verbal permission to speak to the caregivers and representatives has been obtained from the patient. Yes * Community resources currently utilized None * Additional services required to return to the preadmission environment? Yes * Can the patient safely return to the preadmission environment? No * Has this patient been hospitalized within the prior 30 days at any hospital? No External Providers External Provider: OTHER-OTHER Next Contact Date: Service Request Date: Service Type: Resolution: Reviewer: Comments: Coverage Notice Reviewer: [email or web address] Farooq Webb Notice Issued Date-Time: 02/03/2020 14:31 Notice Type: Patient Choice Letter Notice Delivered To: Patient Relationship to Patient: Vault Service Mechanic Name: Delivery Method: HAND - Hand Delivered Lakisha Days: Prior Verbal Notification: Recipient Understood Notice: Yes Recipient Signature: Yes Med Rec Note Co-signed by Attending: Coverage Notice Comment: Almaz Jacobs [place] Last DP export: 02/10/20 12:44 p Patient Name: MARC CHADWICK Page 60061 at 1404 All edits/amendments must be made on the electronic document DICTATION DATE: 02/10/20 140 ANIMAL RIDES MANAGER: JANN 02/10/20 140 RPT#: [id number] DC DATE: STATUS: ADM IN [facility] [address] [place] [address] END OF REPORT
--- NOTE | 2020-02-10 14:15 | MORECARE ---
CASE MANAGEMENT DISCHARGE SUMMARY PATIENT: MARC CHADWICK UNIT: [id number] ADM DATE: 01/28/20 AGE: 75 : [birth year] SEX: M ROOM/BED: D.2106 AUTHOR: ALCIDES,DOC PHYSICIAN: REFERRING PHYSICIAN: MIGUEL GUERRERO MD DATE OF SERVICE: 02/10/20 Discharge Plan Patient Name: MARC CHADWICK Facility: [facility]:[place] : 1945 Planned Disposition: Anticipated Discharge Date: Discharge Date: Expected LOS: Initial Reviewer: [email or web address] Initial Review Date: 01/28/2020 Generated: 02/10/20 3:15 pm Comments DCP- Discharge Planning Updated by [id number]: Jeannette Rosado on 02/10/20 1:[address] I faxed VA paperwork back to Jazmine Tomlinson at [phone]. Her phone number to coordinator [place] referral is [phone]. RHIANNON has spoken to Vivien at [facility] and she states they will review paper work. [facility] caser - [phone] DCP- Discharge Planning Updated by [email or web address]: Jeannette Rosado on 02/10/20 12:[address] Dainne from [facility] called and states [facility] and [facility] have denied admission due to behavioral issues in the past at [facility]. [facility] is no longer VA contracted. I called [facility], they do not have VA contract. I called [facility] and they do have a VA contract. RHIANNON faxed clinical to [facility] at [phone]. DCP- Discharge Planning Updated by [id number]: Jeannette Rosado on 02/09/20 3:[address] I received a call from patient's brother that he received paper work from [facility] and his brother is out of SNF days at 100% for Medicare and he is unable to pay the 20% up front as asked for. His brother states that he would like him to stay in a VA contracted facility in [place] if possible. I called Lolita with the [place] and she gave me the [place] coordinator's name and number Jazmine Davi - [phone]. I called that number and left my name on her voice mail to return my call. I spoke with Dianne at [facility] and clinical faxed. CM will continue to follow and assist with discharge planning/needs. DCP- Discharge Planning Updated by [id number]: Jeannette Rosado on 02/09/20 1:[address] I spoke with Kermit at [facility]. They have sent admission paperwork for brother to sign and are awaiting return of signed papers. CM will continue to follow and assist with discharge planning/needs. DCP- Discharge Planning Updated by [id number]: Jeannette Rosado on 02/09/20 7:[address] UPDATED CLINICAL FAXED TO [facility]. AWAITING ACCEPTANCE FROM [facility]. CM WILL CONTINUE TO FOLLOW AND ASSIST WITH DISCHARGE PLANNING/NEEDS. DCP- Discharge Planning Updated by [id number]: Jeannette Rosado on 02/07/20 1:[address] Received [place] approval for SNF placement, faxed to [facility]. DCP- Discharge Planning Updated by [id number]: Isaías Webb on 02/07/20 1:[address] Visit with patient this morning. Patient is not communicative. Phone call to ROYAL Rafi Chadwick (Brother) - [phone]. Conversation indicated that patient should go to SNF at [facility] and that he has a POA on file there with Silvia (social media campaign manager). Spoke with Kermit at [facility], clinical faxed. Will attempt placement and continue to follow and assist. DCP- Discharge Planning Updated by [email or web address]: Jeannette Rosado on 02/07/20 11:[address] [facility] assessment with clinical faxed to [facility], awaiting approval. DCP- Discharge Planning Updated by [id number]: Isaías Webb on 02/03/20 2:[address] Patient Name: MARC CHADWICK Admission Status: ER Accout number: [id number] Admission Date: 01-28-2020 : 1945 Admission Diagnosis:ALTERED MENTAL STATUS, UNSPECIFIED Attending: MIGUEL GUERRERO Current LOS: 6 Anticipated DC Date: Planned Disposition: Primary Insurance: MEDICARE A & B Discharge Planning Comments: CM met with patient to complete initial dc planning assessment. CM educated patient on the CM role and verbal consent given by patient to complete assessment. CM verified patient's address, phone number, and emergency contact phone numbers. Patient lives at home with his roommate Ever Richmond ([phone]). Patient plans to discharge to a residential facility as his home is not a safe discharge option. DERRICK signed for [place], [place], and [facility]. CM discussed availability of home health, rehab services, and medical equipment. Patient declined HH, rehab services, and DME. Discussions with the patient's roommates and brother revealed the following: (1) Ever Richmond (roommate - [phone]) - Stated that he cannot physically take care of the patient because his hips are "bad". Mr. Richmond stated that he will possibly have hip surgery on 24 February 2020 and further stated that he is legally blind. Mr. Richmond stated that he wants the patient to come home but it is not feasible at this time due to his inability to provide adequate skilled care. Mr. Richmond stated that a mutual friend, Mallika Richter ([phone]) did help out with medications and transfers and house chores but that her living situation within the household is not certain; (2) Mallika Richter stated that she cannot take care of both men and was only at the home on a temporary basis. She further expressed urgency in the patient contacting his brother, Rafi Chadwick [phone] for clarification of power of energy attorney; and (3) Rafi Chadwick (brother) - stated that he strongly feels that residential facility would be appropriate and stated that he has medical power energy attorney. Mr. Rafi Chadwick feels that [facility] may be a more appropriate choice for SNF. Mr. Rafi Chadwick further stated that he would like to be informed either via email ( ) or voicemail the outcome of SNF choice. Transportation provider at discharge will be from accepting SNF. CM will continue to follow and will assist as needed with dc plans/needs. Search Developer: Isaías Webb DCP- Discharge Planning Updated by [email or web address]: Inna Aviles on 01/29/20 8:[address] [phone] BUT UNABLE TO REACH BY PHONE, AND UNABLE TO LEAVE MESSAGE. CM WILL CONTINUE TO ASSIST WITH DC PLANNING/NEEDS. INNA AVILES MSN,RN,CM DCPIA - Discharge Planning Initial Assessment Updated by ANDREA: Isaías Webb on 02/03/20 3:50 pm * Is the patient Alert and Oriented? Yes * How many steps to enter\\exit or inside your home? RAMP * PCP SUPRIYA YO * Pharmacy [facility] * Preadmission Environment Home with Family * ADLs Partial Dependent * Partial ADLs (Assistance needed) Ambulation Dressing Medication Management Transfers * Equipment Crutch Glucometer Walker Wheelchair * Other Equipment Electronic wheelchair as well * List name and contact numbers for known caregivers / representatives who currently or will assist patient after discharge: Rafi Chadwick (brother) - [phone] Dwightfreddy Cassidy (friend) - [phone] Mallika Richter (friend) - [phone] Ever Richmond (roommate) - [phone] * Verbal permission to speak to the caregivers and representatives has been obtained from the patient. Yes * Community resources currently utilized None * Additional services required to return to the preadmission environment? Yes * Can the patient safely return to the preadmission environment? No * Has this patient been hospitalized within the prior 30 days at any hospital? No Coverage Notice Reviewer: ANDREA - Isaías Webb Notice Issued Date-Time: 02/03/2020 14:31 Notice Type: Patient Choice Letter Notice Delivered To: Patient Relationship to Patient: Sound Controller Name: Delivery Method: HAND - Hand Delivered Lakisha Days: Prior Verbal Notification: Recipient Understood Notice: Yes Recipient Signature: Yes Med Rec Note Co-signed by Attending: Coverage Notice Comment: Almaz Jacobs [place] Last DP export: 02/10/20 1:04 p Patient Name: MARC CHADWICK Page 16901 at 1415 All edits/amendments must be made on the electronic document DICTATION DATE: 02/10/201414 ELEMENTARY VOCAL MUSIC TEACHER: JANN 02/10/201414 RPT#: [id number] DC DATE: STATUS: ADM IN [facility] [address] [place] [address] END OF REPORT
--- NOTE | 2020-02-10 15:52 | NUR ---
PATIENT IS CONFUSED AT THIS TIME. UNABLE TO RE-ORIENT. TRIED TO PLACE A YELLOW ARM BAND AND HIS IS REFUSING CARE. BRANDON MAT ALARM IS ON AND IN USE.
--- NOTE | 2020-02-10 16:46 | NUR ---
PATIENT IS STILL CONFUSED, HE IS NOT ALLOWING ME TO CHECK HIS BLOOD SUGAR AND WILL NOT EAT HIS SUPPER FOR HIS EVENING MEDICATIONS. WILL CONTINUE TO TRY.
--- NOTE | 2020-02-10 20:42 | NUR ---
PT PULLED IV OUT OF LEFT FA, CATHETER TIP INTACT. PT REMIANS CONFUSED. WILL CTM.
[2020-02-10 22:07] VITALS: BP 144/59
[2020-02-11 02:07] VITALS: BP 105/53
[2020-02-11 05:43] LABS: BASOPHILS 0.2 % (0-2); EOSINOPHILS 3.7 % (0-7); HEMATOCRIT 26.8 % (42.0-54.0); HEMOGLOBIN 8.1 g/dL (13.5-17.5); IMMATURE GRANULOCYTES 0.2 % (0-5); LYMPHOCYTES 15.2 % (15-50); MCH 31.5 pg (26.0-34.0); MCHC 30.2 g/dL (31.0-37.0); MCV 104.3 fL (80.0-100.0); MEAN PLATELET VOLUME 9.7 fL (7.4-10.4); MONOCYTES 15.2 % (2-11); NEUTROPHILS 65.5 % (40-80); PLATELET COUNT 133 10x3/uL (130-400); RBC 2.57 10x6/uL (4.20-6.10); RDW 14.9 % (11.5-14.5)
[2020-02-11 05:51] VITALS: BP 149/59
[2020-02-11 06:06] LABS: ANION GAP 14.8 mmol/L (8-16); CALCIUM 9.2 mg/dL (8.5-10.1); CARBON DIOXIDE 29.9 mmol/L (21.0-32.0); POTASSIUM - SERUM 3.7 mmol/L (3.5-5.1); VANCOMYCIN - RANDOM 22.8 ug/mL (10.0-20.0)
[2020-02-11 06:10] LABS: CREATININE - SERUM 6.2 mg/dL (0.6-1.3)
[2020-02-11 07:00] VITALS: BP 124/73
[2020-02-11 15:00] VITALS: BP 158/73
--- NOTE | 2020-02-11 17:08 | NUR ---
I have reviewed this patient and I concur with the Shift Assessment completed by the Licensed Practical Nurse today this shift.
--- NOTE | 2020-02-11 19:00 | NUR ---
ALERT AND CONFUSED. WATHCING TV. CONTINUALLY ASKING TO "PLAY THE CD". SPENT SEVERAL MINUTES WITH PATIENT TRYING TO APPEASE TO NO AVAIL. ASSISTED PATIENT WITH FINDING PROGRAM ON TV. PATIENT ASSESSMENT PERFORMED. WOUND VAC TO THE RIGHT LOWER EXTREMETY, AMPUTATION. SEALED AND SUCTIONING AT 150 MMHQ. DENIES NEEDS AT THIS TIME. BED ALARM AND BRANDON ALARM IN PLACE. SCDS CONTRAINDICATED FOR THIS PATIENT (LOVENOX DAILY). CALL LIGHT NEXT TO PATIENT. CPOC.
[2020-02-11 21:52] VITALS: BP 141/59
--- NOTE | 2020-02-12 00:49 | NUR ---
CHECKED ON PATIENT. COMPLAINING OF LEG PAIN. REQUESTING PAIN MEDICATION, ADMININISTERED DILAUDID PER ORDER. PATIENT SWALLOWED WITH NO ISSUES. BED ALARM REMAINS ON, BRANDON WELL. WOUND VAC INTACT, PULLING AT 150MMHQ. CPOC.
[2020-02-12 02:00] VITALS: BP 142/61
[2020-02-12 06:19] VITALS: BP 150/68
[2020-02-12 06:39] LABS: BASOPHILS 0.2 % (0-2); HEMATOCRIT 27.8 % (42.0-54.0); HEMOGLOBIN 8.5 g/dL (13.5-17.5); IMMATURE GRANULOCYTES 0.2 % (0-5); LYMPHOCYTES 10.5 % (15-50); MCH 31.6 pg (26.0-34.0); MCHC 30.6 g/dL (31.0-37.0); MCV 103.3 fL (80.0-100.0); MEAN PLATELET VOLUME 10.1 fL (7.4-10.4); MONOCYTES 12.1 % (2-11); RBC 2.69 10x6/uL (4.20-6.10); RDW 15.3 % (11.5-14.5); WBC 6.4 10x3/uL (4.8-10.8)
[2020-02-12 06:41] LABS: PLATELET COUNT 163 10x3/uL (130-400)
[2020-02-12 06:57] LABS: ANION GAP 16.8 mmol/L (8-16); CALCIUM 9.1 mg/dL (8.5-10.1); POTASSIUM - SERUM 3.8 mmol/L (3.5-5.1); VANCOMYCIN - RANDOM 20.1 ug/mL (10.0-20.0)
[2020-02-12 08:12] VITALS: BP 167/77
[2020-02-12 11:40] VITALS: BP 167/69
--- NOTE | 2020-02-12 12:27 | NUR ---
PT AWAKE AND CONFUSED. UNCHAGED FROM PREVIUOS DAYS. LYING IN BED, WHEN ADMINISTERING MORNING MEDICATIONS PT TOLD ME TO "FUCK OFF". REUFSED MRONING MEDICATIONS. ABLE TO ADMINISTER NOON INSULIN. WOUND VAC TUBING INTACT. PT HAD BED BATH ADMINSTERED BY TECHS. NO VISITORS AT THIS TIME. CL IN REACH, SRX2.
--- NOTE | 2020-02-12 13:56 | NUR ---
I have reviewed this patient and I concur with the Shift Assessment completed by the Licensed Practical Nurse today this shift.
[2020-02-12 15:00] VITALS: BP 160/72
[2020-02-12 20:00] VITALS: BP 175/74
[2020-02-13] VITALS: BP 175/100
[2020-02-13 04:00] VITALS: BP 167/72
[2020-02-13 05:29] LABS: BASOPHILS 0.1 % (0-2); EOSINOPHILS 2.3 % (0-7); HEMATOCRIT 27.5 % (42.0-54.0); HEMOGLOBIN 8.3 g/dL (13.5-17.5); IMMATURE GRANULOCYTES 0.5 % (0-5); LYMPHOCYTES 8.1 % (15-50); MCH 31.2 pg (26.0-34.0); MCHC 30.2 g/dL (31.0-37.0); MCV 103.4 fL (80.0-100.0); MONOCYTES 11.1 % (2-11); NEUTROPHILS 77.9 % (40-80); PLATELET COUNT 172 10x3/uL (130-400); RBC 2.66 10x6/uL (4.20-6.10); RDW 15.4 % (11.5-14.5); WBC 7.9 10x3/uL (4.8-10.8)
[2020-02-13 05:55] LABS: ANION GAP 16.9 mmol/L (8-16); CALCIUM 9.5 mg/dL (8.5-10.1); CARBON DIOXIDE 26.5 mmol/L (21.0-32.0); CREATININE - SERUM 9.7 mg/dL (0.6-1.3); MAGNESIUM - SERUM 2.5 mg/dL (1.8-2.4); PHOSPHOROUS 7.2 mg/dL (2.5-4.9); VANCOMYCIN - RANDOM 18.3 ug/mL (10.0-20.0)
[2020-02-13 06:11] LABS: POTASSIUM - SERUM 4.4 mmol/L (3.5-5.1)
[2020-02-13 07:26] VITALS: BP 153/59
--- NOTE | 2020-02-13 11:24 | MORECARE ---
CASE MANAGEMENT DISCHARGE SUMMARY PATIENT: MARC CHADWICK UNIT: [id number] ADM DATE: 01/28/20 AGE: 75 : [birth year] SEX: M ROOM/BED: D.2106 AUTHOR: ALCIDES,DOC PHYSICIAN: REFERRING PHYSICIAN: MIGUEL GUERRERO MD DATE OF SERVICE: 02/13/20 Discharge Plan Patient Name: MARC CHADWICK Facility: [facility]:[place] : 1945 Planned Disposition: Anticipated Discharge Date: Discharge Date: Expected LOS: Initial Reviewer: [email or web address] Initial Review Date: 01/28/2020 Generated: 02/13/20 12:23 pm Comments DCP- Discharge Planning Updated by [email or web address]: Jeannette Rosado on 02/13/20 10:[address] I called [facility] to check on referral. Chidi, admission coordinator, is not in the office. I spoke with Damion, product safety administrator, and gave verbal report and updated clinical faxed. I spoke with Waqas Chang APN, about having patient reassessed for Residential. I called Evangelina, [place] child welfare caseworker, and gave her an update. Evangelina states the behavioral unit at the [place] is not accepting any patient at this time. Evangelina states to call her if he is denied by [facility] and she will assist with intermediate placement. He can use his Medicare benefits for Residential if needed. CM will continue to follow and assist with discharge planning/needs. DCP- Discharge Planning Updated by [id number]: Jeannette Rosado on 02/10/20 1:[address] I faxed [place] paperwork back to Jazmine Tomlinson at [phone]. Her phone number to coordinator [place] referral is [phone]. CM has spoken to Vivien at [facility] and she states they will review paper work. Evangelina [place] child welfare caseworker - [phone] DCP- Discharge Planning Updated by [id number]: Jeannette Rosado on 02/10/20 12:[address] Tolland from [facility] called and states [facility] and [place] have denied admission due to behavioral issues in the past at [facility]. [facility] is no longer VA contracted. I called [facility], they do not have VA contract. I called [facility] and they do have a VA contract. CM faxed clinical to [facility] at [phone]. DCP- Discharge Planning Updated by [id number]: Jeannette Rosado on 02/09/20 3:[address] I received a call from patient's brother that he received paper work from [facility] and his brother is out of SNF days at 100% for Medicare and he is unable to pay the 20% up front as asked for. His brother states that he would like him to stay in a VA contracted facility in [place] if possible. I called Lolita with the [place] and she gave me the [place] coordinator's name and number Jazmine Tomlinson - [phone]. I called that number and left my name on her voice mail to return my call. I spoke with Dianne at [facility] and clinical faxed. CM will continue to follow and assist with discharge planning/needs. DCP- Discharge Planning Updated by [id number]: Jeannette Rosado on 02/09/20 1:[address] I spoke with Kermit at [facility]. They have sent admission paperwork for brother to sign and are awaiting return of signed papers. CM will continue to follow and assist with discharge planning/needs. DCP- Discharge Planning Updated by [id number]: Jeannette Rosado on 02/09/20 7:[address]PDATED CLINICAL FAXED TO [facility]. AWAITING ACCEPTANCE FROM [facility]. CM WILL CONTINUE TO FOLLOW AND ASSIST WITH DISCHARGE PLANNING/NEEDS. DCP- Discharge Planning Updated by [id number]: Jeannette Rosado on 02/07/20 1:[address] Received [facility] approval for SNF placement, faxed to [facility]. DCP- Discharge Planning Updated by [email or web address]: Isaías Webb on 02/07/20 1:[address] Visit with patient this morning. Patient is not communicative. Phone call to ROYAL, Rafi Chadwick (Brother) - [phone]. Conversation indicated that patient should go to SNF at [facility] and that he has a POA on file there with Silvia (social human services assistants). Spoke with Kermit at [facility], clinical faxed. Will attempt placement and continue to follow and assist. DCP- Discharge Planning Updated by [email or web address]: Jeannette Rosado on 02/07/20 11:[address] ANABEL assessment with clinical faxed to [facility], awaiting approval. DCP- Discharge Planning Updated by [id number]: Isaías Webb on 02/03/20 2:[address] Patient Name: MARC CHADWICK Admission Status: ER Accout number: [id number] Admission Date: 01-28-2020 : 1945 Admission Diagnosis:ALTERED MENTAL STATUS, UNSPECIFIED Attending: MIGUEL GUERRERO Current LOS: 6 Anticipated DC Date: Planned Disposition: Primary Insurance: MEDICARE A & B Discharge Planning Comments: CM met with patient to complete initial dc planning assessment. CM educated patient on the CM role and verbal consent given by patient to complete assessment. CM verified patient's address, phone number, and emergency contact phone numbers. Patient lives at home with his roommate Ever Richmond ([phone]). Patient plans to discharge to a retirement facility as his home is not a safe discharge option. DERRICK signed for [place], [place], and [place]. CM discussed availability of home health, rehab services, and medical equipment. Patient declined HH, rehab services, and DME. Discussions with the patient's roommates and brother revealed the following: (1) Ever Richmond (roommate - [phone]) - Stated that he cannot physically take care of the patient because his hips are "bad". Mr. Richmond stated that he will possibly have hip surgery on 24 February 2020 and further stated that he is legally blind. Mr. Richmond stated that he wants the patient to come home but it is not feasible at this time due to his inability to provide adequate skilled care. Mr. Richmond stated that a mutual friend, Mallika Richter ([phone]) did help out with medications and transfers and house chores but that her living situation within the household is not certain; (2) Mallika Schneiderck stated that she cannot take care of both men and was only at the home on a temporary basis. She further expressed urgency in the patient contacting his brother, Rafi Chadwick [phone] for clarification of power of wood heel fitter machine; and (3) Rafi Chadwick (brother) - stated that he strongly feels that retirement facility would be appropriate and stated that he has medical power wood heel fitter machine. Mr. Rafi Chadwick feels that [facility] may be a more appropriate choice for SNF. Mr. Rafi Chadwick further stated that he would like to be informed either via email [email or web address]) or voicemail the outcome of SNF choice. Transportation provider at discharge will be from accepting SNF. CM will continue to follow and will assist as needed with dc plans/needs. Leather Lacer: Isaías Webb DCP- Discharge Planning Updated by [id number]: Inna Aviles on 01/29/20 8:[address] CM ATTEMTPED TO CALL [facility] AT [phone] BUT UNABLE TO REACH BY PHONE, AND UNABLE TO LEAVE MESSAGE. CM WILL CONTINUE TO ASSIST WITH DC PLANNING/NEEDS. NINA AVILES MSN,RN,CM DCPIA - Discharge Planning Initial Assessment Updated by [id number]: Isaías Webb on 02/03/20 3:50 pm * Is the patient Alert and Oriented? Yes * How many steps to enter\\exit or inside your home? RAMP * PCP SUPRIYA YO * Pharmacy [facility] * Preadmission Environment Home with Family * ADLs Partial Dependent * Partial ADLs (Assistance needed) Ambulation Dressing Medication Management Transfers * Equipment Crutch Glucometer Walker Wheelchair * Other Equipment Electronic wheelchair as well * List name and contact numbers for known caregivers / representatives who currently or will assist patient after discharge: Rafi Chadwick (brother) - [phone] Dwightfabyadalid Cassidy (friend) - [phone] Mallika Richter (friend) - [phone] Ever Yi (roommate) - [phone] * Verbal permission to speak to the caregivers and representatives has been obtained from the patient. Yes * Community resources currently utilized None * Additional services required to return to the preadmission environment? Yes * Can the patient safely return to the preadmission environment? No * Has this patient been hospitalized within the prior 30 days at any hospital? No Coverage Notice Reviewer: [id number] - Isaías Webb Notice Issued Date-Time: 02/03/2020 14:31 Notice Type: Patient Choice Letter Notice Delivered To: Patient Relationship to Patient: Cutter Aluminum Sheet Name: Delivery Method: HAND - Hand Delivered Lakisha Days: Prior Verbal Notification: Recipient Understood Notice: Yes Recipient Signature: Yes Med Rec Note Co-signed by Attending: Coverage Notice Comment: Almaz Jacobs [place] Last DP export: 02/10/20 1:15 p Patient Name: MARC CHADWICK Page [id number] at 1124 All edits/amendments must be made on the electronic document DICTATION DATE: 02/13/20 112 MASTER [place]: JANN 02/13/20 1123 RPT#: [id number] DC DATE: STATUS: ADM IN [facility] [address] [place] [address] END OF REPORT
--- NOTE | 2020-02-13 13:34 | NUR ---
TONY JOHNSON CALLED FROM DIALYSIS. UNABLE TO RECOVER DESPITE CODE TEAMS BEST EFFOFRTS. PT BROUGHT BACK TO ROOM ON FLOOR. SPOKE WITH POA/BROTHER. THEY CHOSE TO USE [facility] FOR CREAMATION. SPOKE TO HOME. SPOKE TO HOME. ALL APPROPRIATE PAPERWORK FILLED OUT. AWAITING HOME FOR BODY COLLECTION.
--- NOTE | 2020-02-13 14:15 | NUR ---
PT ESCORTED OUT VIA STERTCHER WITH HOME. BELONGINGS SURRENDERED TO HOME.
--- NOTE | 2020-02-13 14:39 | NUR ---
PT ESCORTE OCTAVIO VIA STRETCHER TO COUNT INCLUDES THE [facility].
== END 2020-02-13 14:40 | DRG 673 ==
LOC: D.ER 10:11 → D.M2 12:02
PROVIDERS: Family Medicine; Internal Medicine Nephrology; Radiology Vascular & Interventional Radiology; ADMIT Family Medicine; ATTEND Family Medicine
PROC: 04CK3ZZ Extirpation of Matter from Right Femoral Artery, Percutaneous Approach (ICD-10-PCS; 2020-02-02)
PROC: 04CM3ZZ Extirpation of Matter from Right Popliteal Artery, Percutaneous Approach (ICD-10-PCS; 2020-02-02)
PROC: 04CP3ZZ Extirpation of Matter from Right Anterior Tibial Artery, Percutaneous Approach (ICD-10-PCS; 2020-02-02)
PROC: 047K3Z1 Dilation of Right Femoral Artery using Drug-Coated Balloon, Percutaneous Approach (ICD-10-PCS; principal; 2020-02-02 12:20)
PROC: 0Y6H0Z2 Detachment at Right Lower Leg, Mid, Open Approach (ICD-10-PCS; 2020-02-04)
PROC: 5A12012 Performance of Cardiac Output, Single, Manual (ICD-10-PCS; 2020-02-13)
DX: N39.0 Urinary tract infection, site not specified (principal); G93.41 Metabolic encephalopathy; N18.6 End stage renal disease; R40.2124 Coma scale, eyes open, to pain, 24 hours or more after hospital admission; R40.2344 Coma scale, best motor response, flexion withdrawal, 24 hours or more after hospital admission; R40.2214 Coma scale, best verbal response, none, 24 hours or more after hospital admission; I12.0 Hypertensive chronic kidney disease with stage 5 chronic kidney disease or end stage renal disease; E11.22 Type 2 diabetes mellitus with diabetic chronic kidney disease; Z99.2 Dependence on renal dialysis; J44.9 Chronic obstructive pulmonary disease, unspecified; F03.90 Unspecified dementia, unspecified severity, without behavioral disturbance, psychotic disturbance, mood disturbance, and anxiety; E83.39 Other disorders of phosphorus metabolism; E11.51 Type 2 diabetes mellitus with diabetic peripheral angiopathy without gangrene; E78.5 Hyperlipidemia, unspecified; D63.1 Anemia in chronic kidney disease; N25.0 Renal osteodystrophy; E11.65 Type 2 diabetes mellitus with hyperglycemia; I25.10 Atherosclerotic heart disease of native coronary artery without angina pectoris; F41.9 Anxiety disorder, unspecified; I46.9 Cardiac arrest, cause unspecified; G47.33 Obstructive sleep apnea (adult) (pediatric); I70.201 Unspecified atherosclerosis of native arteries of extremities, right leg; Z89.612 Acquired absence of left leg above knee; Z87.891 Personal history of nicotine dependence; Z86.73 Personal history of transient ischemic attack (TIA), and cerebral infarction without residual deficits